=== PATIENT | female | born 1950 | race American Indian/Alaskan Native ===

== ENCOUNTER 2016-12-14 14:45 | Outpatient (CLI) | payer MEDICARE, MEDICAID | END 2016-12-14 14:46 | disposition home or self-care (01) | DX: J44.9 Chronic obstructive pulmonary disease, unspecified (principal); J84.10 Pulmonary fibrosis, unspecified; I27.2 Other secondary pulmonary hypertension; R53.1 Weakness; Z51.5 Encounter for palliative care ==

== ENCOUNTER 2017-01-04 | Outpatient (CLI) | payer MEDICARE, MEDICAID | END 2017-01-04 12:46 | disposition home or self-care (01) ==

== ENCOUNTER 2017-02-08 13:15 | Outpatient (CLI) | payer MEDICARE, MEDICAID | END 2017-02-08 13:16 | disposition home or self-care (01) | DX: Z51.5 Encounter for palliative care (principal); J44.9 Chronic obstructive pulmonary disease, unspecified; J84.10 Pulmonary fibrosis, unspecified; I27.2 Other secondary pulmonary hypertension; K59.00 Constipation, unspecified; Z87.898 Personal history of other specified conditions; F41.9 Anxiety disorder, unspecified ==

== ENCOUNTER 2017-03-27 15:45 | Outpatient (CLI) | payer MEDICARE, MEDICAID | END 2017-03-27 15:46 | disposition home or self-care (01) | DX: R10.9 Unspecified abdominal pain (principal); K59.00 Constipation, unspecified; R06.00 Dyspnea, unspecified; F41.9 Anxiety disorder, unspecified; J44.9 Chronic obstructive pulmonary disease, unspecified; J84.10 Pulmonary fibrosis, unspecified; I27.2 Other secondary pulmonary hypertension; Z99.81 Dependence on supplemental oxygen; R09.81 Nasal congestion; J18.9 Pneumonia, unspecified organism; R00.0 Tachycardia, unspecified ==

== ENCOUNTER 2017-03-27 16:26 | Outpatient (CLI) | payer MEDICARE, MEDICAID | END 2017-03-27 16:27 | disposition critical access hospital (66) | LOC: EMS 16:26 | PROVIDERS: ATTEND Surgery | DX: R10.9 Unspecified abdominal pain (principal); R11.0 Nausea | CPT/HCPCS: A0425; A0427 ==

== ENCOUNTER 2017-03-27 16:45 | Inpatient (IN) | payer MEDICARE, MEDICAID ==
[2017-03-27] MEDS ORDERED: SODIUM CHLORIDE 0.9% 1,000 ML IV ONE (17:32)
[2017-03-27] MEDS ORDERED: HYDROmorphone 1 MG/ML SYRINGE IVP STA (17:33)
[2017-03-27] MEDS ORDERED: HYDROmorphone 1 MG/ML SYRINGE ONE (17:34)
[2017-03-27] MEDS ORDERED: ONDANSETRON 4 MG/2 ML VIAL ONE (17:38)
[2017-03-27] MEDS ORDERED: ONDANSETRON 4 MG/2 ML VIAL IVP STA (17:39)
[2017-03-27] MEDS ORDERED: IOPAMIDOL-300 100 ML VIAL IVP ONE (18:56)
[2017-03-27] MEDS ORDERED: PROMETHAZINE INJ 12.5 MG in SODIUM CHLORIDE 0.9% 50 ML IV STA (19:41)
[2017-03-27] MEDS ORDERED: SODIUM CHLORIDE 0.9% 50 ML IV ONE (19:47)
[2017-03-27] MEDS ORDERED: SODIUM CHLORIDE 0.9% MINIBAG 100 ML IV ONE (19:47)
[2017-03-27] MEDS ORDERED: PROMETHAZINE 25 MG/1 ML VIAL ONE (19:47)
[2017-03-27] MEDS: PIPERACILLIN/TAZOBACTAM 3.375 GM in SODIUM CHLORIDE 0.9% MINIBAG 100 ML IV STA ×2 (19:55→20:25)
[2017-03-27] MEDS ORDERED: PROCHLORPERAZINE 10 MG/2 ML VIAL IVP PRN (20:18)
[2017-03-27] MEDS ORDERED: PROMETHAZINE 25 MG/1 ML VIAL IM PRN (20:18)
[2017-03-27] MEDS ORDERED: oxyCODONE 5 MG TABLET PO PRN (20:18)
[2017-03-27] MEDS ORDERED: ACETAMINOPHEN 325 MG TABLET PO PRN (20:18)
[2017-03-27] MEDS: HYDROmorphone 1 MG/ML SYRINGE IVP PRN (22:16)
[2017-03-27] MEDS: ONDANSETRON 4 MG/2 ML VIAL IVP PRN (22:16)
[2017-03-27] MEDS: SODIUM CHLORIDE FLUSH 0.9% 10 ML SYRINGE IVP SCH (22:21)
[2017-03-27] MEDS: SODIUM CHLORIDE 0.9% 1,000 ML IV SCH (22:22)
[2017-03-28] MEDS: HYDROmorphone 1 MG/ML SYRINGE IVP PRN ×3 (01:24→19:08)
[2017-03-28] MEDS: PIPERACILLIN/TAZOBACTAM 3.375 GM in SODIUM CHLORIDE 0.9% MINIBAG 100 ML IV SCH ×4 (01:26→19:08)
[2017-03-28] MEDS: SODIUM CHLORIDE 0.9% 1,000 ML IV SCH ×2 (01:34→14:09)
[2017-03-28] MEDS: PANTOPRAZOLE 40 MG TABLET PO SCH (06:08)
[2017-03-28] MEDS: SODIUM CHLORIDE FLUSH 0.9% 10 ML SYRINGE IVP SCH ×3 (06:08→19:08)
[2017-03-28] MEDS: POLYETHYLENE GLYCOL 3350 17 GM PACKET PO SCH (08:50)
[2017-03-28] MEDS: ENOXAPARIN 40 MG/0.4 ML SYRINGE SUBQ SCH (08:50)
[2017-03-28] MEDS: ATORVASTATIN 10 MG TABLET PO SCH (08:50)
[2017-03-28] MEDS: predniSONE 20 MG TABLET PO SCH (08:50)
[2017-03-28] MEDS: ONDANSETRON 4 MG/2 ML VIAL IVP PRN (08:57)
[2017-03-28] MEDS: LOSARTAN 50 MG TABLET PO SCH (08:59)
[2017-03-28] MEDS ORDERED: LOSARTAN 50 MG TABLET PO SCH (09:00)
[2017-03-28] MEDS: BUDESONIDE 0.5 MG/2 ML NEB INH SCH (09:50)
[2017-03-28] MEDS: FORMOTEROL FUMARATE NEB 20 MCG/2 ML INH SCH (09:50)
[2017-03-28] MEDS: IPRATROPIUM/ALBUTEROL 3 ML NEB INH PRN ×3 (09:50→17:48)
[2017-03-28] MEDS ORDERED: PROPOFOL 200 MG/20 ML VIAL IVP ONE (20:45)
[2017-03-28] MEDS ORDERED: ONDANSETRON 4 MG/2 ML VIAL IVP ONE (20:45)
[2017-03-28] MEDS ORDERED: fentaNYL 100 MCG/2 ML VIAL IVP ONE (20:45)
[2017-03-28] MEDS ORDERED: GLYCOPYRROLATE 1 MG/5 ML VIAL IVP ONE (20:45)
[2017-03-28] MEDS ORDERED: NEOSTIGMINE 1 MG/1 ML 10 ML MDV IVP ONE (20:45)
[2017-03-28] MEDS ORDERED: LIDOCAINE-MPF 2% 5 ML VIAL IM ONE (20:45)
[2017-03-28] MEDS ORDERED: MIDAZOLAM 2 MG/2 ML VIAL IVP ONE (20:45)
[2017-03-28] MEDS ORDERED: ACETAMINOPHEN 1,000 MG/100 ML VIAL IV ONE (20:45)
[2017-03-28] MEDS ORDERED: ALBUTEROL 6.7 GM INHALER INH ONE (20:45)
[2017-03-28] MEDS ORDERED: DEXAMETHASONE 4 MG/ML VIAL IVP ONE (20:45)
[2017-03-28] MEDS ORDERED: SUCCINYLCHOLINE 200 MG/10 ML VIAL IVP ONE (20:45)
[2017-03-28] MEDS ORDERED: ROCURONIUM 50 MG/5 ML VIAL IVP ONE (20:45)
[2017-03-28] MEDS ORDERED: BUPIVACAINE 0.5% PF 30 ML VIAL SUBQ ONE ×2 (20:52)
[2017-03-28] MEDS ORDERED: LACTATED RINGERS 1,000 ML IV ONE ×2 (20:59→22:37)
[2017-03-28] MEDS ORDERED: IPRATROPIUM/ALBUTEROL 3 ML NEB INH ONE (22:13)
[2017-03-28] MEDS ORDERED: PHENOL THROAT SPRAY 177 ML MM PRN (22:31)
[2017-03-28] MEDS ORDERED: SODIUM CHLORIDE FLUSH 0.9% 10 ML SYRINGE IVP PRN (22:31)
[2017-03-28] MEDS: HYDROmorphone 1 MG/ML SYRINGE ONE ×2 (22:33→22:45)
[2017-03-29] MEDS: BUDESONIDE 0.5 MG/2 ML NEB INH SCH ×3 (00:33→19:42)
[2017-03-29] MEDS: FORMOTEROL FUMARATE NEB 20 MCG/2 ML INH SCH ×3 (00:33→19:42)
[2017-03-29] MEDS: PIPERACILLIN/TAZOBACTAM 3.375 GM in SODIUM CHLORIDE 0.9% MINIBAG 100 ML IV SCH ×4 (02:08→20:15)
[2017-03-29] MEDS: oxyCODONE 5 MG TABLET PO PRN ×2 (06:50→21:30)
[2017-03-29] MEDS: SODIUM CHLORIDE FLUSH 0.9% 10 ML SYRINGE IVP SCH ×6 (06:52→21:39)
[2017-03-29] MEDS: PANTOPRAZOLE 40 MG TABLET PO SCH (06:52)
[2017-03-29] MEDS: ATORVASTATIN 10 MG TABLET PO SCH (09:17)
[2017-03-29] MEDS: SODIUM CHLORIDE 0.9% 1,000 ML IV SCH (09:17)
[2017-03-29] MEDS: DOCUSATE SODIUM 250 MG CAPSULE PO SCH (09:17)
[2017-03-29] MEDS: predniSONE 20 MG TABLET PO SCH (09:18)
[2017-03-29] MEDS: LOSARTAN 50 MG TABLET PO SCH (09:18)
[2017-03-29] MEDS: SENNA 8.6 MG TABLET PO SCH (09:18)
[2017-03-29] MEDS: HYDROmorphone 1 MG/ML SYRINGE IVP PRN ×3 (09:27→23:40)
[2017-03-29] MEDS: ENOXAPARIN 40 MG/0.4 ML SYRINGE SUBQ SCH (09:27)
[2017-03-29] MEDS: POLYETHYLENE GLYCOL 3350 17 GM PACKET PO SCH (09:28)
[2017-03-29] MEDS: IPRATROPIUM/ALBUTEROL 3 ML NEB INH PRN ×2 (12:45→17:17)
[2017-03-29] MEDS: ONDANSETRON 4 MG/2 ML VIAL IVP PRN (21:30)
[2017-03-29] MEDS: SODIUM CHLORIDE FLUSH 0.9% 10 ML SYRINGE IVP PRN ×2 (23:40→23:48)
[2017-03-30] MEDS: SODIUM CHLORIDE FLUSH 0.9% 10 ML SYRINGE IVP PRN (02:17)
[2017-03-30] MEDS: PIPERACILLIN/TAZOBACTAM 3.375 GM in SODIUM CHLORIDE 0.9% MINIBAG 100 ML IV SCH ×2 (02:17→08:52)
[2017-03-30] MEDS: PANTOPRAZOLE 40 MG TABLET PO SCH (06:17)
[2017-03-30] MEDS: SODIUM CHLORIDE FLUSH 0.9% 10 ML SYRINGE IVP SCH ×2 (06:17)
[2017-03-30] MEDS: BUDESONIDE 0.5 MG/2 ML NEB INH SCH (08:32)
[2017-03-30] MEDS: IPRATROPIUM/ALBUTEROL 3 ML NEB INH PRN (08:32)
[2017-03-30] MEDS: FORMOTEROL FUMARATE NEB 20 MCG/2 ML INH SCH (08:32)
[2017-03-30] MEDS: predniSONE 20 MG TABLET PO SCH (08:51)
[2017-03-30] MEDS: ATORVASTATIN 10 MG TABLET PO SCH (09:53)
[2017-03-30] MEDS: DOCUSATE SODIUM 250 MG CAPSULE PO SCH ×2 (09:54→09:59)
[2017-03-30] MEDS: oxyCODONE 5 MG TABLET PO PRN (09:57)
[2017-03-30] MEDS: SENNA 8.6 MG TABLET PO SCH (10:01)
[2017-03-30] MEDS: LOSARTAN 50 MG TABLET PO SCH (10:02)
[2017-03-30] MEDS: POLYETHYLENE GLYCOL 3350 17 GM PACKET PO SCH (10:02)
[2017-03-30] MEDS: ENOXAPARIN 40 MG/0.4 ML SYRINGE SUBQ SCH (10:06)
== END 2017-03-30 11:10 | disposition home or self-care (01) | DRG 418 ==
PROC: 0HB7XZZ Excision of Abdomen Skin, External Approach (ICD-10-PCS; 2017-03-28)
PROC: 0FT44ZZ Resection of Gallbladder, Percutaneous Endoscopic Approach (ICD-10-PCS; principal; 2017-03-28 16:00)
DX: K81.9 Cholecystitis, unspecified (principal); J44.9 Chronic obstructive pulmonary disease, unspecified; K80.10 Calculus of gallbladder with chronic cholecystitis without obstruction; J96.10 Chronic respiratory failure, unspecified whether with hypoxia or hypercapnia; E87.1 Hypo-osmolality and hyponatremia; L82.1 Other seborrheic keratosis; I10 Essential (primary) hypertension; F41.9 Anxiety disorder, unspecified; J84.10 Pulmonary fibrosis, unspecified; I27.2 Other secondary pulmonary hypertension; I15.9 Secondary hypertension, unspecified; Z99.81 Dependence on supplemental oxygen; Z79.52 Long term (current) use of systemic steroids; Z87.891 Personal history of nicotine dependence

== ENCOUNTER 2017-04-06 12:30 | Outpatient (CLI) | payer MEDICARE, MEDICAID ==
--- NOTE | 2017-04-07 06:38 | CONSULTATION NOTE ---
DATE OF CONSULTATION: 04/06/2017 00:00:00 REQUESTING PROVIDER: DOMINGO Reyes. TIME OF VISIT 12:30 to 13:15. TOPIC: Followup palliative care consult. Thank you, Kirti Phillips, for asking the palliative care consultation service to be involved in the care of your patient. I am asked to provide support for pain and symptom management, as well as goals of care. The patient is seen in her home setting secondary to considerable and taxing effort for her to leave the home related to her advanced COPD. BRIEF HISTORY OF PRESENT ILLNESS: The patient has been seen termite control representative for support regarding her advanced COPD. When I visited her last 03/27/2017, the patient had also had 24 hours of acute abdominal pain and was sent to the ED. She was admitted to the hospital from 03/27 to 03/30 with admission diagnosis of cholecystitis. She did have a laparoscopic cholecystectomy and actually tolerated it despite her chronic respiratory failure fairly well. She tends to be somewhat of an introvert, it is very difficult for her to get out. She has not made any followup appointments. She is supposed to see Dr. Diggs and Kirti LANE in followup after her surgery. In the context of this, I am doing a home evaluation. The patient has had some abdominal pain. She does have 3 small incisions from her laparoscopy. The Steri-Strips are still intact. No signs or symptoms of infection. The pain has been improving. She has used only occasional oxycodone, but has been uncomfortable enough needing to sleep in a recliner. She reports her respiratory status is not much different than baseline, but again, she has needed to sleep upright, so she does sleep in her hospital bed with her head of the bed up. What is quite remarkable from her baseline exam is that she has got lower extremity edema, probably up to about mid thigh. She also has some facial and periorbital edema and some edema in her hands. I did not hear any crackles, but her breath sounds are very, very diminished even at baseline. She reports her baseline weight is 195 and she is weighing in at 199, and she reports she has had some mild improvement over the last couple of days. She has been taking her p.r.n. Lasix which is 20 mg tabs along with her potassium daily with not much improvement. She denies any history that she has CHF, but she does have pulmonary hypertension and pulmonary fibrosis, as well as her advancing COPD. She reports she has had similar episodes with other hospital stays. Pain: Most of her discomfort is in her feet and her calves from the tightness and swelling. She does have some residual abdominal pain from the surgery though this is improving daily and she has some intermittent osteoarthritic pain. She is currently also using the morphine 5 mg about twice a day for breathlessness. She has since hospitalization had decreased activity tolerance, has only been able to ambulate back and forth to the bathroom and to microwave meals. She even at baseline is quite sedentary and is limited by her dyspnea. Today, she does not feel like she could get out. I was hoping to send her out for a chest x-ray, but we will go ahead and treat at this point in time. She reports her appetite has been fair. She is somewhat anxious and denies depression. ALLERGIES: NO KNOWN DRUG ALLERGIES. MEDICATIONS: 1. Albuterol sulfate 1-2 puffs q.4h. p.r.n. 2. Atorvastatin 20 mg daily. 3. Advair 250/50 mcg Diskus 1 puff daily. 4. Tiotropium bromide 18 mcg inhaler daily. 5. Vitamin D3 at 3,000 units daily. 6. Tramadol 50 mg. up to 4 times a day p.r.n. osteoarthritic pain and not currently taking. 7. Albuterol nebulizers 0.83% and 3 mL q.4h. p.r.n. She has been using this about 4 times a day. 8. Iron tablet 2-3 times a week. 9. Multivitamin daily. 10. Calcium, magnesium, zinc 1 tab t.i.d.. 11. Valsartan 80 mg daily. 12. Lasix 20 mg daily. This is ordered p.r.n.. 13. Potassium 10 mEq daily. Ordered p.r.n. with Lasix. 14. Oxycodone 5 mg q.4h. p.r.n. 15. Morphine sulfate 20 mg/mL 0.25 mL q.3h. p.r.n. shortness of breath. CODE STATUS: THE PATIENT IS A FULL CODE. BRIEF SOCIAL HISTORY: The patient is currently being supported by a very caring LAURA caregiver, Cady. She is a private IP. She has been helping her with meals. She does have LAURA 5 days a week, but otherwise has very little support outside of that. [place] not been able help her through this recovery. She does have [facility] in place. PERFORMANCE STATUS: The patient does need assistance with bathing. She has just been doing Spit bath, she does not think she can tolerate a shower at this point in time. She is ambulating only very short distances secondary to her dyspnea and deconditioning. I would put her actually at a palliative care performance status today at 40%. REVIEW OF SYSTEMS: ENT: She is complaining of nasal congestion and sinus pressure from allergies. Denies difficulty with swallowing. CARDIOVASCULAR: Denies chest pain. Does have exertional dyspnea, orthopnea. She is unable to sleep flat. She has been sleeping in a recliner since discharge. She does have a hospital bed with the head of the bed up. She is hoping to get into that tonight. RESPIRATORY: She does report a baseline tightness, does relieve with an inhaler. She does have intermittent productive cough of dark yellow sputum. She is clearing her secretions. She is using her nebulizer about 4 times a day and an inhaler with any kind of ambulation. She is using the morphine twice a day, as well, which has assisted with severe dyspnea and allowing her to get back and forth to the bathroom and tolerate some increased activity. GASTROINTESTINAL: She has had some intermittent constipation with her increased opioid use. GENITOURINARY: Denies any pain or burning with urination. MUSCULOSKELETAL: Feeling somewhat weak, increased difficulty walking with swollen feet. INTEGUMENTARY: Does have some scattered hematomas from her hospitalization. She reports she is a "difficult stick." NEUROLOGIC: Does report generalized weakness. Denies dizziness, no numbness or tingling. PSYCHIATRIC: She is baseline quite anxious. Denies depression. ENDOCRINE: No hypothyroidism or diabetes. HEMATOLOGIC/IMMUNOLOGIC: Was treated for a respiratory infection prior to her hospitalization. PHYSICAL EXAMINATION: GENERAL: She does have fairly pronounced periorbital edema and some swelling in her face and does appear quite fatigued. ENT: Mucous membranes are moist. NECK: Trachea midline. No JVD. RESPIRATORY: Severely diminished breath sounds throughout. No adventitious sounds, though they are quite quiet, particularly diminished in the bases. CARDIOVASCULAR: Her pulse is 96, blood pressure 132/68, temperature 98, O2 saturations on 4 liters 96%. ABDOMEN: Slightly tender to palpation over her surgical area, but bowel tones are positive. SKIN: Steri-Strips intact. No signs and symptoms of infection. EXTREMITIES: She does have increased tremulousness and as noted above increased lower extremity edema. PALLIATIVE CARE DISCUSSION/WHO IS PRESENT: Myself and the patient, Cady, her caregiver, joined us later. We did not venture into her advanced care planning. She though is aware that we need to revisit this particularly given her most recent hospitalization, she is certainly at risk for complications still yet with her respiratory status and now fluid overload. She has just a borderline safe plan as far as getting her care needs met, but feels like she is doing okay currently. IMPRESSION: This is a 66-year-old woman with severe end-stage chronic obstructive pulmonary disease, pulmonary fibrosis with recent hospitalization for cholecystitis status post laparoscopic cholecystectomy. She does appear to have symptoms of fluid overload. Unclear if this is outright heart failure. Certainly she is at high risk. She does appear to be a little worse than baseline, though that is not her perception. RECOMMENDATIONS/COUNSELING DONE: 1. Fluid overload. The patient has currently been taking 20 mg of furosemide. I did ask her to increase it to 20 mg b.i.d. for a week and to weigh herself daily. She is to call 911 if she has increased shortness of breath or distress from her baseline or any further concerns. I did make arrangements for her to have labs in a week. I also reinforced her need to followup with both her surgeon and her primary care. She did not feel like she could get out for a chest x-ray today, but I did voice my concerns and hoping that she will improve with the increased diuresis. 2. Constipation, most likely secondary to opioid use. The patient has been using the MiraLax about every 3 days. I did encourage her to take it daily and if she becomes too loose to decrease it to every other day. Given her difficulties with breathing and poor energy, it is important for her to have a soft regular bowel movement on a regular basis for energy conservation. 3. Dyspnea. The patient is managing with the tools at her disposal including using morphine, her inhalers and albuterol nebulizer. Currently, her saturations are 96%. She does feel like she is coming around to baseline. On her discharge list, they did have her on prednisone 40 mg. She was not on prednisone prior to admit. I checked with [facility], they had not called the prednisone in and she was not aware of why, it looked like it came from a list of home medications and she does not have that in the home and has not been on it for quite a while. We did discuss at this point after greater than a week out , weighing benefits and burdens. She really dislikes the prednisone as far as weight gain and coming off of it. She is on maximized COPD treatment as far as her inhalers and so did not pursue further. FACE TO FACE: Patient needs portable concentrator to allow patient to access to leave her home for medical appointments. She is to dysnpneic and compromised to be able to manage with the tanks, it causes increased distress and burden. She also is at 4 liters which does not allow her time for more extended outings without maximum caregiver support. Without oxygen her sats were 87% just at rest. 4. Advanced care planning. At this time this will opportunity to revisit this given her most recent trip to hospitalization and is unclear if she followed through on conversation with her children as she did see them through this acute process. Thank you, Kirti, for asking the palliative care consult service to provide her support. She is actually best while seen in her home setting, though she knows to follow up with you, but has not made an appointment yet, and she currently remains very fragile and frail and certainly is still at risk for sequela for her postop complications, particularly related to her respiratory status and we reviewed extensively reasons to contact 911. TIME SPENT:45 minutes with greater than 50% of this done in counseling and coordination of care, follow up post surgical, adjusting medications, review of signs and symptoms to access emergent care. JOB #: [id number] EXT JOB #:[id number] AMOL
== END 2017-04-06 12:31 | disposition home or self-care (01) ==
LOC: PC 12:30
PROVIDERS: ATTEND Nurse Practitioner Adult Health
DX: Z51.5 Encounter for palliative care (principal); E87.70 Fluid overload, unspecified; K59.00 Constipation, unspecified; R06.00 Dyspnea, unspecified; Z79.891 Long term (current) use of opiate analgesic; Z99.81 Dependence on supplemental oxygen; Z79.51 Long term (current) use of inhaled steroids; R10.9 Unspecified abdominal pain; I27.2 Other secondary pulmonary hypertension; J84.10 Pulmonary fibrosis, unspecified; F41.9 Anxiety disorder, unspecified; R09.81 Nasal congestion; R05 Cough; R53.1 Weakness; R60.0 Localized edema
CPT/HCPCS: 99349

== ENCOUNTER 2017-04-26 15:15 | Outpatient (CLI) | payer MEDICARE, MEDICAID ==
[2017-04-26 19:08] LABS: CALCIUM 9.1 mg/dL (8.5-10.3); CREATININE 0.6 mg/dL (0.4-1.0); POTASSIUM 4.1 mmol/L (3.5-5.0)
== END 2017-04-26 15:16 | disposition home or self-care (01) ==
LOC: LAB.N 15:15
PROVIDERS: ATTEND Nurse Practitioner Adult Health
DX: Z79.899 Other long term (current) drug therapy (principal)
CPT/HCPCS: 36415; 80048

== ENCOUNTER 2017-05-09 16:15 | Outpatient (CLI) | payer MEDICARE, MEDICAID ==
--- NOTE | 2017-05-10 11:20 | CONSULTATION NOTE ---
DATE OF CONSULTATION: 05/09/2017 00:00:00 REQUESTING PROVIDER: DOMINGO Reyes. TIME OF VISIT: 15:45 to 16:30. TOPIC: Followup palliative care consult. Thank you Kirti Phillips for asking the palliative care consult service to be involved in the car e of your patient. I am asked to provide support for pain and symptom management, as well as goals of care. The patient is seen in her home setting secondary to considerable and taxing effort for her to leave the home related to her advanced COPD. BRIEF HISTORY OF PRESENT ILLNESS UPDATE: The patient is seen regarding support for her advanced COPD. She recently had a laparoscopic cholecystectomy done on 03/28/2017. She continues to improve, though she is not back to her baseline. I do find her with her baseline dyspnea with respiratory effort wit h any kind of conversation or visit. Her respiratory rate is about 24-28 at rest, with any conversati on up to 32 with use of accessory muscles. Her breath sounds are diminished throughout, but no crackl es, wheezing, or rhonchi. She does have, per her report, a productive cough of yellow to green sputum . This has been her baseline for the last several weeks. She has not had any fever or chills. Her abd ominal pain is improving, her incisions are well healed. She is having regular bowel movements, no cr amping, nausea or residual. Today, she presents with recurrent lower extremity edema. She has restart ed her Lasix at 20 mg with 10 mEq of potassium for about a week now. Her weight, though remains down about 191, but they are quite tight and uncomfortable for her and pitting. Her new symptom is on her right great toe. She has an area of about 3 cm of erythema, quite tender to palpation. It does appear like there is some break in the skin. She has very thick fungal toes and presents with cellulitis. S he reports this has been painful and present for about 24-36 hours. She is unclear if she had an init ial trauma or injury. She is quite sedentary and only ambulates short distances within a very small a partment. SYMPTOM BURDEN: Her pain remains mostly osteoarthritic in nature. Her acute pain is resolved. She has continued with some fatigue and no further nausea. Her appetite has been good. She does appear somew hat anxious today. No changes from her medication list on 04/06/2017. CODE STATUS: REMAINS A FULL CODE. SOCIAL HISTORY UPDATE: She is supported by LAURA. She does have LAURA support from Monday through Mon. She remains with very little social support. PERFORMANCE STATUS: The patient has not had activity tolerance or felt well enough to bathe. At this point in time she is doing sponge baths. She is sleeping back in her bed. She is ambulating only abou t 15-20 feet within her apartment. She has not been out and did not followup with any physician appoi ntments. Unclear if this is related to activity or just the patient's spasticity regarding interactio ns with the medical system. She does have an appointment next Monday with a talent acquisition partner at [facility] and please see palliative care discussion. REVIEW OF SYSTEMS: ENT: She continues to have nasal congestion and runny nose from allergies. CARDIOVASCULAR: Denies chest pain. Does have exertional dyspnea, orthopnea. [facility] with her head of the bed up. RESPIRATORY: As noted above. She continues to use her nebulizer and inhaler, occasionally uses morphi ne to allow her to tolerate activity. GASTROINTESTINAL: Denies constipation. GENITOURINARY: Denies new symptoms. MUSCULOSKELETAL: Remains somewhat deconditioned. INTEGUMENTARY: New cellulitis of her right foot. NEUROLOGIC: No numbness, tingling. PSYCHIATRIC: She appears at her baseline quite anxious. ENDOCRINE: No hyperthyroidism or diabetes. HEMATOLOGIC/IMMUNOLOGIC: Was treated for respiratory infection prior to hospitalization and now prese nts with cellulitis. PHYSICAL EXAMINATION: GENERAL: She does have some increased facial swelling with some periorbital edema. Does appear fatigu ed. ENT: Her mucous membranes are moist. Trachea midline. No JVD. RESPIRATORY: As noted above. CARDIOVASCULAR: Her temperature is 97.8, pulse is 91, blood pressure elevated today at 172/70, O2 sat urations on 3 liters 98%. ABDOMEN: Bowel tones normal, no tenderness. Her incisions well healed from her laparoscopy. SKIN: As noted above. EXTREMITIES: Have some increased tremulousness of her upper extremities and noted to have increased l ower extremity edema, as noted above. PALLIATIVE CARE DISCUSSION, WHO IS PRESENT: Myself, the patient, and nurse practitioner, Ellie Irizarry. The patient is following up with her talent acquisition partner. She did not reach out, they called her. She has been talking about weighing benefits and burdens of moving forward with pursuing whether she is a can didate for lung transplant or not. She will need a referral and followup from her talent acquisition partner. When asked if she knew what questions she was going to ask or what her concerns where she really could no t define those. We did review those from previously whether she would be a candidate again for lung t ransplant, what her prognosis was at this point in time and to address concerns regarding this. I did encourage her to write these down as she is quiet in the context of, I believe, most likely cultural and her health literacy, I am concerned she is not going to get the information that she is looking for. IMPRESSION: This is a 66-year-old woman with severe end-stage chronic obstructive pulmonary disease, pulmonary fibrosis, who is recovering from a hospitalization, though not back to her baseline either with functional status or respiratory status. She presents today with increased lower extremity edema and cellulitis of her right toe. RECOMMENDATIONS/COUNSELING DONE: 1. Lower extremity edema. The patient had gone back to her p.r.n. furosemide, had restarted 1 tablet daily. She dislikes the need to get up frequently to the bathroom, as this does cause her respiratory distress. I did request though given her current infection and swelling in her lower feet to increas e again her furosemide to 20 mg b.i.d. for 5 days, then go back to baseline to daily and then to add the potassium to twice a day and back to daily as well. I did write these instructions. She did verbjessy gonzalez understanding. 2. Cellulitis of her right toe. The patient was prescribed Keflex 500 mg 4 times a day for 1 week bhargav paredes with Florastor 250 mg b.i.d., instructed the patient to take this and be compliant. Reviewed side effects as far as diarrhea and needs to if she did not pick and shovel worker the probiotics, to add yogurt or some baseline probiotic to her regimen. She also was instructed on increased signs or symptoms of infectio n to contact her PCP or seek emergency help if she has increased pain, drainage, fever or chills. 3. Dyspnea. The patient is managing with the tools at her disposal including her morphine intermitten tly. I did write her a prescription for another bottle of 30 mL. She does find this effective, though uses it only sparingly about a couple times a day. She is following up with her talent acquisition partner. She h ad also run out of her Advair. Did followup with [facility] to see if we could facilitate getting th at delivered as well. TIME SPENT: 45 minutes with greater than 50% of this done in counseling regarding her upcoming pulmon ology appointment, reviewing her current symptomatology, new diagnosis of cellulitis and recurrent lo wer extremity edema. Anticipatory guidance was provided as well. JOB #: [id number] EXT JOB #:[id number]
== END 2017-05-09 16:16 | disposition home or self-care (01) ==
LOC: PC 16:15
PROVIDERS: ATTEND Nurse Practitioner Adult Health
DX: Z51.5 Encounter for palliative care (principal); R60.0 Localized edema; L03.031 Cellulitis of right toe; J44.9 Chronic obstructive pulmonary disease, unspecified; J84.10 Pulmonary fibrosis, unspecified; I27.2 Other secondary pulmonary hypertension; Z90.49 Acquired absence of other specified parts of digestive tract; F41.9 Anxiety disorder, unspecified
CPT/HCPCS: 99349

== ENCOUNTER 2017-06-06 16:52 | Outpatient (CLI) | payer MEDICARE, MEDICAID ==
--- NOTE | 2017-06-06 17:07 | PROVIDER PROGRESS NOTE ---
Palliative Care Follow Up - Referral Referring Provider: DOMINGO Martinez Time of Visit: 14:30-15:15 Referral setting: Home (The patient is seen in her home setting secondary to considerable and taxing effort for her to leave the home related to her end- stage COPD.) Referral Reason: End Stage COPD - Information Sources Records Reviewed: Old records reviewed History obtained from: Patient, Caregiver (LAURA Crocker caregiver) Exam limitations: Clinical condition (SOB makes it difficult for her to speak) - History of Present Illness Update Brief HPI Update: 66 year old female with severe end-stage COPD and pulmonary fibrosis, recently with cholecystitis s/p laparoscopic cholecystectomy (March 2017). She is being seen for long-term palliative care support relating to her advanced COPD. Today she reports nausea and vomiting which started last night. She ate mac and cheese yesterday afternoon and a cheese and egg sandwich in the evening, and several hours after the evening meal she vomited. 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 She has a fan going and is sitting in the coolest part, which is under a fan vent. She has not attempted to eat anything or take her medications today, saying she feels nauseous at the thought of food and was reluctant to drink as she had thrown up some 7 Up earlier. She is worried that she will become dehydrated if she doesn't start drinking water. She denies cramping and abdominal pain and her abdomen is not tender to palpation. During the course of our visit, I educated her on sipping small amounts of water or 7 Up, making sure they were well mixed with her saliva before swallowing. I also recommended sucking on ice, but she does not currently have any due to not enough room in her freezer. She was able to hold down several swallows of 7 Up while I was there, and by the end of the visit she reported feeling improvement in her nausea. Her stamina and energy levels have decreased since the cholecystectomy two months ago and she is not able to ambulate in the house without her walker -- she needs it to sit down and rest at regular intervals. Previously she could move around the apartment by supporting herself on furniture. She perceives her SOB as worse since the operation, although it has stabilized. This could be her new baseline. She says this is not unexpected as she had been told by doctors that her disease and symptoms would get progressively worse. She has increased her usage of Albuterol inhaler, using it daily. She reports using morphine for breathlessness about once a day. She did not go to the animator last month ; she now has an appointment on 06/12/17, and she asked me to write down a note reminding her to tell him about her increased used of rescue inhaler. She admits having recent anxiety over getting the paperwork together to get recertified for her home with the [employer]. With the help of Lizzette, her LAURA caregiver, they submitted the paperwork on time earlier this week. She said she is not worried about the recertification process since she has turned all the paperwork in, and her situation has not changed from the previous certification period so she's not worried about losing her home. She has not taken any of her medications for at least two days: yesterday she forgot, and today she was afraid of vomiting. Her BP is elevated: 185/95 on the R arm, 185/90 on L arm 10 minutes later. Her BP at the April visit was also elevated but less so, 172/70. Her ankles are swollen and she says she has not been taking her PRN Lasix. The cellulitis of R first toe has cleared up but she stubbed that toenail recently and it was bandaged. She denied pain or tenderness. She reports no pain and is not currently using her PRN pain medications (tramadol, oxycodone). Social History - Living Situation Living arrangement: At home Living Situation: With caregiver(s) (LAURA 5 days/week) Support System: Apart from her LAURA caregivers 5 days a week she does not have a strong support system. Her son and daughter are not closely involved in her care. Her son lives close by in [place]. Medications/Allergies - Medications Home Medications: Ambulatory Orders Medication Instructions Recorded Confirmed Albuterol Sulfate [Proair Hfa 1 - 2 puffs INH Q4H PRN 08/31/16 06/06/17 Inhaler] Atorvastatin Calcium 20 mg PO QPM 08/31/16 06/06/17 Fluticasone/Salmeterol [Advair 1 puffs INH BID 08/31/16 06/06/17 250-50 Diskus] Valsartan [Diovan] 80 mg PO DAILY #30 tablet 08/31/16 06/06/17 Morphine Sulfate [Morphine Sulf 5 mg PO Q3H PRN 03/29/17 06/06/17 Oral (Roxanol)] oxyCODONE [Roxicodone] 5 mg PO Q4HR PRN #30 tablet 03/30/17 06/06/17 Furosemide [Lasix] 20 mg PO DAILY PRN MDD This is 06/06/17 06/06/17 ordered PRN Multivitamin 1 tab PO DAILY 06/06/17 06/06/17 Potassium 10 meq PO PRN MDD Take with Lasix 06/06/17 for edema Vit D3 06/06/17 traMADol [Ultram] 50 mg PO QID PRN MDD Up to 4x day. 06/06/17 06/06/17 Not using it. - Allergies Allergies/Adverse Reactions: Allergies Allergy/AdvReac Type Severity Reaction Status Date / Time No Known Drug Allergies Allergy Verified 03/27/17 16:53 Review of Systems - Constitutional Constitutional: reports: Fatigue, Poor appetite, Weight loss (4 lbs since last month). denies: Fever, Chills, Malaise - Cardiovascular Cariovascular: reports: Edema (chronic lower extremity), Exertional dyspnea. denies: Chest pain, Lightheadedness, Syncope - Respiratory Respiratory: reports: Sputum production (allergies), SOB at rest, SOB with exertion - Gastrointestinal Gastrointestinal: reports: Nausea, Vomiting. denies: Abdominal pain, Constipation, Diarrhea, Change in bowel habits - Genitourinary Genitourinary: denies: Dysuria, Incontinence - Integumentary Integumentary: reports: Pigment changes (darkened skin on lower extremities, concerned it might be due to iron supplements) - Psychiatric Psychiatric: denies: Anxiety - All Other Systems All Other Systems: reports: Reviewed and negative Physical Examination - Vital Signs Temperature: 96.4 C Pulse Rate: 80 O2 Saturation: 96 Blood Pressure: 185/90 - Physical Exam General Appearance: positive: No acute distress Eyes Bilateral: positive: Normal inspection, No lid inflammation, Conjunctivae nml ENT: positive: No signs of dehydration Neck: positive: Trachea midline Respiratory: positive: Wheezes (mild, on expiration), Other (greatly diminished breath sounds in upper lobes, less diminished in lower lobes) Cardiovascular: positive: Regular rate & rhythm Palliative Care - POLST Patient has POLST: No Pain: Pain unchanged Drowsiness: Mild (1-3) Nausea: Moderate (4-6) Anxiety: Mild (1-3) Dyspnea: Moderate (4-6) (no change) Anorexia: Mild (1-3) (since N/V started, last night), Weight loss (4 lbs since last month's visit) Insomnia: Sleeps well (Except for last night due to N/V) Constipation: No Feelings of wellbeing/Perceived Quality of Life: Worsening (Perceives her disease and SOB as worsening) Performance Status: Her functionality has decreased since the cholecystectomy two months ago. She is no longer able to ambulate in the house without her walker because she uses the walker to sit down and rest frequently. SOB is not as poor as it was post-op , but it has not returned to pre-op levels and may well be at its new baseline. She uses Albuterol daily and morphine about once a day. She has been able to start bathing again with help of LAURA caregiver. She has no complaints of pain and has not been using oxycodone or tramadol. Her Palliative Care Performance Scale is approximately 50%. - Palliative Care Discussion: WHO IS PRESENT: Myself, the patient, and initially, LAURA Crocker caregiver, who was just finishing her shift. The patient is introverted and that, along with her breathlessness, makes dialog challenging. It appears very difficult for her to express herself and to get the words out. She doesn't have a DPOA and hasn't spoken with her children about any of this. She says she understands and expects her COPD to get worse as time goes on, but she has not yet thought about her goals of care. She is scheduled to see the animator next week but she does not think she will be able to get a lung transplant. She said she does not know what questions she will be asking him, so I wrote out two subjects to speak about: lung transplant, and that she has increased her albuterol usage. I also asked her to think about who she would trust to have as a DPOA. She does not have a signed POLST but is familiar with the form and has a copy around somewhere but she doesn't know where, so I left her a new copy. We agreed she would think about it and continue the discussion at our next visit. I expressed my concern over her high blood pressure today. It is likely related to her nausea and also skipping medications for at least two days. Since her nausea seemed to be improving, we discussed that she should sip liquids slowly and frequently, suck on ice, and slowly reintroduce bland food. She verbalized understanding. Impression and Recommendations - Palliative Care Impression: This is a 66-year-old woman with severe end-stage COPD and pulmonary fibrosis whose functionality and respiratory status has declined since a recent cholecystectomy on 03/28/17. She presents today with acute nausea and vomiting and increased BP possibly related to medication non-compliance. Recommendations/Counseling Done: 1. Nausea/Vomiting: Acute. Start ondansetron 8mg tab PO every 8 hours as needed. #10. Instructed her to frequently and slowly sip water, 7 Up, or other liquids, allowing saliva to thoroughly "coat" anything swallowed or chewed. Slowly reintroduce bland foods like crackers, white rice, pudding, cottage cheese in very small portions throughout the day. Instructed her on what to call 911 for. I will follow up by phone tomorrow. 2. SOB: Renewed her script for morphine sulfate solution, 20mg/ml, 0.25ml = 5mg every 3 hours as needed for breathlessness, #30ml. She has a animator appointment on 06/12/17, but she has rescheduled and cancelled appointments in the past. I will schedule a follow up visit to see her next week after her appointment. Issues are her increased SOB and albuterol usage and obtaining information on lung transplant and prognosis. 3. Increased BP: Likely due to non-adherence of medication and increased SOB. Encourage and educate her about drinking and eating again and not vomiting, so she can start taking her BP medications. 4. Lower extremity edema: Counselled elevation her legs throughout the day and encouraged her to start taking her Lasix 20mg daily. It is ordered on a PRN basis. Time Spent: 45 minutes with greater than 50% of this done in reviewing current symptomology and acute nausea/vomiting, restarting liquids and solids, and counseling regarding her upcoming pulmonology appointment. Discussed POLST, surrogate decision makers, and advanced planning.
== END 2017-06-06 16:53 | disposition home or self-care (01) ==
LOC: PC 16:52
PROVIDERS: ATTEND Nurse Practitioner
DX: Z51.5 Encounter for palliative care (principal); R11.2 Nausea with vomiting, unspecified; R03.0 Elevated blood-pressure reading, without diagnosis of hypertension; R60.0 Localized edema; J44.9 Chronic obstructive pulmonary disease, unspecified; J84.10 Pulmonary fibrosis, unspecified; Z90.49 Acquired absence of other specified parts of digestive tract; Z79.891 Long term (current) use of opiate analgesic; Z91.14 Patient's other noncompliance with medication regimen
CPT/HCPCS: 99349

== ENCOUNTER 2017-06-15 15:40 | Outpatient (CLI) | payer MEDICARE, MEDICAID ==
--- NOTE | 2017-06-15 17:16 | PROVIDER PROGRESS NOTE ---
Palliative Care Follow Up - Referral Referring Provider: DOMINGO Reyes Time of Visit: 15:40 Referral setting: Home (Seen in home setting due to taxing and considerable effort required to leave the home secondary to advanced COPD and inability to ambulate more than a few feet without resting.) - Information Sources History obtained from: Patient Exam limitations: No limitations, Clinical condition (breathlessness) - History of Present Illness Update Brief HPI Update: 66-year-old female with severe end-stage COPD and pulmonary fibrosis, with cholecystitis s/p laparoscopic cholecystectomy in March 2017. She is being seen for long-term palliative care support relating to her advanced COPD. Today she appears much better and reports the nausea and vomiting from last week cleared after 1-2 days. She is not sure whether it was a 24-hour bug or food poisoning. She had her follow up consultation with chemists/internal medicine Dr Gwyn Riggs, , in [place] this week and he will set up tests/ diagnostics to determine if she is a candidate for lung reduction or transplant. She reports a decrease in breathlessness since he started her on fluticasone for her sinuses, and overall feels more positive, with more energy and less fatigue. Her R first toe likely has an ingrown toenail and she will follow up with her PCP (DOMINGO Phillips) for treatment. Her BP has improved since my visit last week , but remains elevated (178 systolic). She will also ask about her elevated BP. She has thought about having a DPOA and thinks it will probably be her sister but has not yet spoken to her regarding this. I will continue to follow up on this issue. Overall she appears more at ease this visit. Part of that is likely the hope that she might be a candidate for a lung transplant or reduction. Also, she recently gave her car to her son and feels good about being able to help him out like this. He lives in [place] and commutes to [place]. Social History - Living Situation Living arrangement: At home Living Situation: Alone (LAURA caregivers) Medications/Allergies - Medications Home Medications: Ambulatory Orders Medication Instructions Recorded Confirmed Albuterol Sulfate [Proair Hfa 1 - 2 puffs INH Q4H PRN 08/31/16 06/06/17 Inhaler] Atorvastatin Calcium 20 mg PO QPM 08/31/16 06/06/17 Fluticasone/Salmeterol [Advair 1 puffs INH BID 08/31/16 06/06/17 250-50 Diskus] Valsartan [Diovan] 80 mg PO DAILY #30 tablet 08/31/16 06/06/17 Morphine Sulfate [Morphine Sulf 5 mg PO Q3H PRN 03/29/17 06/06/17 Oral (Roxanol)] oxyCODONE [Roxicodone] 5 mg PO Q4HR PRN #30 tablet 03/30/17 06/06/17 Furosemide [Lasix] 20 mg PO DAILY PRN MDD This is 06/06/17 06/06/17 ordered PRN Multivitamin 1 tab PO DAILY 06/06/17 06/06/17 Potassium 10 meq PO PRN MDD Take with Lasix 06/06/17 for edema Vit D3 06/06/17 traMADol [Ultram] 50 mg PO QID PRN MDD Up to 4x day. 06/06/17 06/06/17 Not using it. Ondansetron [Ondansetron Odt] 8 mg PO Q8HR PRN 06/08/17 06/08/17 - Allergies Allergies/Adverse Reactions: Allergies Allergy/AdvReac Type Severity Reaction Status Date / Time No Known Drug Allergies Allergy Verified 03/27/17 16:53 Review of Systems - Constitutional Constitutional: reports: Weight loss (from 190 lbs to 186 lbs) - Ears, Nose & Throat Ears, Nose & Throat: reports: Nasal congestion, Postnasal drainage (improved since starting fluticasone) - Respiratory Respiratory: reports: SOB at rest, SOB with exertion - Integumentary Integumentary: reports: Nail changes (R big toe - ingrown nail) Physical Examination - Vital Signs Temperature: 98.1 C Pulse Rate: 95 O2 Saturation: 96 Blood Pressure: 178/78 - Physical Exam General Appearance: positive: No acute distress Eyes Bilateral: positive: EOMI, No lid inflammation, Conjunctivae nml, No scleral icterus ENT: positive: ENT inspection nml Neck: positive: Trachea midline Respiratory: negative: Breath sounds nml (Diminished. LLL less diminished than other lobes) Cardiovascular: positive: Regular rate & rhythm Abdomen: positive: Non-tender, No organomegaly, Nml bowel sounds Skin: positive: Other (crusting scab, thickened skin on lateral surface of skin next to nail) Extremities: positive: Pedal edema (+1) Neurologic/Psychiatric: positive: Oriented x3, Motor nml, Sensation nml. negative: Mood/affect nml (affect flat) Palliative Care - POLST Patient has POLST: No Pain: Pain unchanged Drowsiness: None Nausea: None Anxiety: Mild (1-3) Dyspnea: Moderate (4-6) (improved) Anorexia: None Insomnia: Sleeps well Constipation: No Feelings of wellbeing/Perceived Quality of Life: No change Performance Status: Previous level of function prior to this episode: Easily fatigued and breathless with any mobility; acute nausea and vomiting. Current level of functioning: N/V resolved; improved SOB and fatigue, resulting in improved mobility. Palliative Care Performance Status: 50% - Palliative Care Discussion: Who is present: Myself and the patient. Surrogate decision maker: None yet. She plans to speak with her sister. I left the DPOA form, and she also has the POLST form readily accessible. Perhaps we are getting closer to her actually choosing a DPOA. Patient/Family understanding of the illness: She understands her lung disease is quite serious and has appeared to be stoic about it in the past, stating that she isnt a candidate for lung transplant. After having met with Dr. Riggs this week, she appears to be encouraged and more hopeful that she may be a candidate for lung transplant or reduction. Most important goals: Being able to give her car to her son when he needed one was important to her. Also passing the recertification for her housing has been another important immediate goal. In future visits I would like to further the conversation about her goals of care and aid her in reflecting about this. She exhibits some reluctance to talk about goals of care, some of which could be cultural. Her family is originally from a nation in [place]. Patient/family concerns: Her immediate worries are about a recent increase in rent of her subsidized apartment while her social security income has not had a concomitant raise. She is open to having COUNTY ASSESSOR input for any help with resources regarding this, and I will follow up with arranging that. Family Conference: I will suggest this in future visits. It may be helpful to be involved with some of the conversation with her sister about goals of care and DPOA. Impression and Recommendations - Palliative Care Impression: This is a 66-year-old woman with severe end-stage COPD and pulmonary fibrosis whose functionality and respiratory status have declined since a cholecystectomy in March 2017. Functionality has not increased to pre-op levels but breathlessness has improved since starting treatment for sinus symptoms. The next step is to complete tests to determine if she is a candidate for lung transplant or reduction. Recommendations/Counseling Done: 1. Advanced care planning: Patient to speak with sister about DPOA. At our next visit, continue the conversation around coaxing out her goals of care, and find out if a family conference with sister would be welcome. Coordinate with COUNTY ASSESSOR for help with resources and information around rent increase of subsidized housing. 2. COPD: Next step is testing/diagnostics to determine eligibility for lung transplant or reduction. Obtain office visit notes from Dr. Ravi office. 3. Dyspnea: Improved with steroid treatment for sinus congestion; morphine usage has decreased. 4. BP: Improved but remains elevated. Patient will discuss with PCP. 5. R ronald toenail: Patient to follow up with PCP. 6. Lower extremity edema: Continue Lasix as needed, elevate lower extremities throughout the day. Time Spent: 45 minutes with greater than 50% of this done in counseling and coordination of care regarding advanced care planning and symptom burden.
== END 2017-06-15 15:41 | disposition home or self-care (01) ==
LOC: PC 15:40
PROVIDERS: ATTEND Nurse Practitioner
DX: Z51.5 Encounter for palliative care (principal); J44.9 Chronic obstructive pulmonary disease, unspecified; R09.81 Nasal congestion; R03.0 Elevated blood-pressure reading, without diagnosis of hypertension; R60.0 Localized edema; J84.10 Pulmonary fibrosis, unspecified; Z79.891 Long term (current) use of opiate analgesic; Z90.49 Acquired absence of other specified parts of digestive tract
CPT/HCPCS: 99349

== ENCOUNTER 2017-07-19 13:30 | Outpatient (CLI) | payer MEDICARE, MEDICAID ==
--- NOTE | 2017-07-19 22:21 | PROVIDER PROGRESS NOTE ---
Palliative Care Follow Up - Referral Referring Provider: DOMINGO Reyes Referral setting: Home (Seen in home setting due to taxing and considerable effort required to leave the home secondary to severe end-stage COPD and inability to to ambulate without shortness of air and need to rest. She is on 24 -hour oxygen.) - Information Sources History obtained from: Patient Exam limitations: Clinical condition (difficulty speaking due to breathlessness) - History of Present Illness Update Brief HPI Update: 66-year-old female with severe end-stage COPD and pulmonary fibrosis, with cholecystitis s/p laparoscopic cholecystectomy in March 2017. She is being seen for long-term palliative and care support relating to her advanced COPD. Today she reports her shortness of air is not good, but it has been like that for several months. She is using her respiratory medications as prescribed and does not use morphine very often. She confirms that she has does not need new scripts currently. She reports that her pharmacy, [facility], never received the scripts that her PCP, DOMINGO Reyes, ordered on 07/13/17. I followed up with the PCP clinic and they will retransmit the orders (increasing Diovan to 160mg daily for elevated BP, and adding cephalexin 500mg TID x 10 days for ingrown R toenail ). The PCP also referred the patient to the yard operator at [facility] for follow-up on the R first toe ingrown toenail. I gave her the phone number for the clinic so she could arrange an appointment. She expressed fear about going to the yard operator since she had a poor and very painful experience in the past with an ingrown toenail treatment. In addition, she notes that the R toenail is less red and no longer hurts, and upon inspection it does appear to be resolving. Her freelance displayer Dr Gwyn Riggs, , is referring her to the to determine if she is a candidate for lung reduction or transplant. She has not heard anything from either Dr Ravi office or the . I will follow up. She becomes breathless with any exertion. When she moved from her recliner two steps to her walker and sat in its seat, her O2 sats were 93% with increased pulse of 102bpm. Pulse dropped back to 97 bpm after several minutes rest. She continues to be bothered by sinus symptoms after an initial period of improvement with Flonase. She is considering purchasing Navage nasal irrigation since she has seen it advertised on television, and we discussed this. Her [employer]URA caregiver quit 5 days ago and she has been without help since then. So far she is coping by using simple foods like frozen pot pies for meals. Her automotive painter, Mireya, has told her it might take up to 2 weeks, or more, to find a replacement. She says her former LAURA worker might be able to work with her 3 days a week and wants to speak to Mireya about this. She also reports that Marcos Pearl, from [employer], has come to her house a few times and helps her with referrals, for example, to a dentist. THERESA Stone met with her last week and has a repeat visit scheduled with the patient. I will ask her to follow up on the LAURA situation to see if she can assist. The patient has not yet completed a POLST or assigned a DPOA. Previously she said she would ask her sister. She has not spoken to her sister yet, and today she said she will speak to her son and daughter about the DPOA and advanced planning. When gently asked further about this, she repeated that she has to speak with her son and daughter. Social History - Living Situation Living arrangement: At home Living Situation: Alone (LAURA caregiver unexpectedly quit her job 5 days ago.) Support System: Not much family support[place] often. Sister also lives in the area, does not appear to speak to her often. Medications/Allergies - Medications Home Medications: Ambulatory Orders Medication Instructions Recorded Confirmed Albuterol Sulfate [Proair Hfa 1 - 2 puffs INH Q4H PRN 08/31/16 06/06/17 Inhaler] Atorvastatin Calcium 20 mg PO QPM 08/31/16 06/06/17 Fluticasone/Salmeterol [Advair 1 puffs INH BID 08/31/16 06/06/17 250-50 Diskus] Valsartan [Diovan] 80 mg PO DAILY #30 tablet 08/31/16 06/06/17 Morphine Sulfate [Morphine Sulf 5 mg PO Q3H PRN 03/29/17 06/06/17 Oral (Roxanol)] oxyCODONE [Roxicodone] 5 mg PO Q4HR PRN #30 tablet 03/30/17 06/06/17 Furosemide [Lasix] 20 mg PO DAILY PRN MDD This is 06/06/17 06/06/17 ordered PRN Multivitamin 1 tab PO DAILY 06/06/17 06/06/17 Potassium 10 meq PO PRN MDD Take with Lasix 06/06/17 for edema Vit D3 06/06/17 traMADol [Ultram] 50 mg PO QID PRN MDD Up to 4x day. 06/06/17 06/06/17 Not using it. Ondansetron [Ondansetron Odt] 8 mg PO Q8HR PRN 06/08/17 06/08/17 - Allergies Allergies/Adverse Reactions: Allergies Allergy/AdvReac Type Severity Reaction Status Date / Time No Known Drug Allergies Allergy Verified 03/27/17 16:53 Review of Systems - Cardiovascular Cariovascular: reports: Exertional dyspnea - Respiratory Respiratory: reports: Sputum production, Wheezing (expiratory), SOB at rest, SOB with exertion - Gastrointestinal Gastrointestinal: denies: Constipation - Genitourinary Genitourinary: denies: Dysuria Physical Examination - Vital Signs Temperature: 97.9 C Pulse Rate: 97 O2 Saturation: 93 Blood Pressure: 150/72 - Physical Exam General Appearance: positive: No acute distress Eyes Bilateral: positive: No lid inflammation, Conjunctivae nml, No scleral icterus Neck: positive: Trachea midline Respiratory: positive: Wheezes (expiratory, detectable with auscultation) Cardiovascular: positive: Regular rate & rhythm, No murmur, No gallop Skin: positive: Other (improvement in redness, swelling of right first toe) Extremities: positive: Nml appearance, No pedal edema, Pedal edema (minimal) Neurologic/Psychiatric: positive: Oriented x3, Sensation nml Palliative Care - POLST Patient has POLST: No Pain: Pain unchanged Drowsiness: None Nausea: None Anxiety: None Dyspnea: Moderate (4-6) (unchanged) Anorexia: None Insomnia: Sleeps well Constipation: No Feelings of wellbeing/Perceived Quality of Life: No change Performance Status: Previous level of function prior to this episode: Easily fatigued and breathless with any mobility. She initially had improvement in sinusitis after starting Flonase Current level of functioning: Fatigue, breathlessness unchanged. Sinus symptoms back to being poor after an initial improvement with Flonase. Palliative Care Performance Status: 50% - Palliative Care Discussion: Who is present: Myself and the patient. Surrogate decision maker: No DPOA. She originally was going to ask her sister. Today she states she needs to speak with her son and daughter. DPOA forms and POLST forms have been left numerous times. Patient/Family understanding of the illness: She knows her lung disease is serious, but says she does not know what will happen if she cannot get a lung transplant or reduction. She has not heard back from Dr. Riggs or about the referral to for evaluation. Patient/family concerns: She says she does not know or has not been told what to expect as far as the progress of her disease. When discussing any advanced planning, or her understanding of her disease and what she is expecting in the future, or hoping for the future, patient is consistently reluctant to talk about any progression of her disease or advanced care planning. It is unclear whether this reticence is lack of medical knowledge, cultural, or personality. When I bring up this topic, today she said she needs to talk to her son and daughter. Previously she was planning to speak with her sister about being a DPOA. Patient tends to focus on her immediate medical needs. Today she wanted help with obtaining the new prescriptions that her PCP ordered. She also requested advice on the Navage irrigation system. Family Conference: I inquired if it would be useful to have a family conference. She reiterated that she wants to talk with her children. Impression and Recommendations - Palliative Care Impression: This is a 66-year-old woman with severe end-stage COPD and pulmonary fibrosis whose functionality and respiratory status have not returned to baseline since a cholecystectomy in March 2017. She would benefit from assistance and support in logistically working with the medical system, such as her referral to for a pulmonary evaluation. Recommendations/Counseling Done: 1. Advanced care planning: POLST and DPOA still outstanding. She wants to speak with her son and daughter about this. Continue to make inquiries and offer support at each visit. Requested AMBULANCE ATTENDANT follow up for her LAURA caregiver situation. 2. COPD: Dr. Riggs is to refer patient to for evaluation for lung transplant or reduction. Follow up with that clinic about the referral status. 3. Dyspnea: Stable, but no improvement. Uses respiratory medications as prescribed, uses morphine occasionally as needed. Does not require refills at this time. Is considering purchasing Navage nasal irrigation system to alleviate sinus symptoms which aggravates her breathlessness; provided education and evaluation. 4. Elevated blood pressure: PCP increased Diovan to 160mg daily, but pharmacy did not receive script. I followed up with clinic and they resubmitted the script to pharmacy. I confirmed the pharmacy received it and will deliver. 5. R ingrown first toenail: PCP ordered cephalexin 500mg TID x 10 days and referred to [facility]. I had clinic resubmit script, and provided phone number to patient to make podiatry appointment if she chooses. The toe has improved, she reports no pain. She may not follow up; she reported a poor experience with prior ingrown toenail treatment. 6. Lower extremity edema: Improved. Continues on Lasix, continue to elevate lower extremities throughout the day. Time Spent: 45 minutes with greater than 50% of this done in counseling and coordination of care regarding COPD, elevated BP, chronic sinusitis symptom burden, and advanced care planning.
== END 2017-07-19 13:31 | disposition home or self-care (01) ==
LOC: PC 13:30
PROVIDERS: ATTEND Nurse Practitioner
DX: Z51.5 Encounter for palliative care (principal); J44.9 Chronic obstructive pulmonary disease, unspecified; Z99.81 Dependence on supplemental oxygen; J84.10 Pulmonary fibrosis, unspecified; Z90.49 Acquired absence of other specified parts of digestive tract; Z79.891 Long term (current) use of opiate analgesic; L60.0 Ingrowing nail; R03.0 Elevated blood-pressure reading, without diagnosis of hypertension; R60.0 Localized edema; J32.9 Chronic sinusitis, unspecified
CPT/HCPCS: 99349

== ENCOUNTER 2017-09-02 21:31 | Outpatient (CLI) | payer MEDICARE, MEDICAID | END 2017-09-02 21:32 | disposition critical access hospital (66) | LOC: EMS 21:31 | PROVIDERS: ATTEND Surgery | DX: R06.00 Dyspnea, unspecified (principal) | CPT/HCPCS: A0425; A0427 ==

== ENCOUNTER 2017-09-02 21:49 | Observation (INO) | payer MEDICARE, MEDICAID ==
[2017-09-02] MEDS ORDERED: ASPIRIN CHEW 81 MG TABLET PO STA (21:55)
--- NOTE | 2017-09-02 22:01 | ED Physician Documentation ---
PD HPI CHEST PAIN - Stated complaint Stated Complaint: CHEST PRESSURE - Chief complaint Chief Complaint: Cardiac - History obtained from History obtained from: Patient, EMS - History of Present Illness Timing - onset: Today Timing - onset during: Rest Timing - duration: Minutes (20) Timing - details: Abrupt onset Pain level max: 8 Pain level now: 0 Quality: Pressure, Tightness, Aching, Dull Location: Substernal Radiation: Other (non-radiating) Improved by: Rest Worsened by: Exertion Associated symptoms: No: Shortness of air, Diaphoresis, Nausea, Vomiting, Feeling faint / dizzy, General Weakness, Palpitations, Cough Similar symptoms before: Has not had sx before Recently seen: Not recently seen Review of Systems Ten Systems: 10 systems reviewed and negative Constitutional: denies: Fever, Chills Ears: denies: Ear pain Nose: denies: Rhinorrhea / runny nose, Congestion Throat: denies: Sore throat Respiratory: denies: Cough GI: denies: Abdominal Pain, Nausea, Vomiting, Diarrhea Skin: denies: Rash Musculoskeletal: denies: Neck pain, Back pain Neurologic: denies: Focal weakness, Numbness, Headache PD PAST MEDICAL HISTORY - Past Medical History Cardiovascular: Hypertension Respiratory: COPD (End Stage on 4L of O2), Other (Pulmonary Fibrosis, Pulmonary Hypertension) Neuro: None Endocrine/Autoimmune: None GI: Cholelithiasis : None HEENT: None Psych: Anxiety Musculoskeletal: Osteoarthritis Derm: None - Past Surgical History Past Surgical History: No HEENT: Tonsil/Adenoidectomy - Present Medications Home Medications: Ambulatory Orders Medication Instructions Recorded Confirmed Albuterol Sulfate [Proair Hfa 1 - 2 puffs INH Q4H PRN 08/31/16 09/02/17 Inhaler] Atorvastatin Calcium 20 mg PO QPM 08/31/16 09/02/17 Fluticasone/Salmeterol [Advair 1 puffs INH BID 08/31/16 09/02/17 250-50 Diskus] Valsartan [Diovan] 80 mg PO DAILY #30 tablet 08/31/16 09/02/17 Morphine Sulfate [Morphine Sulf 5 mg PO Q3H PRN 03/29/17 09/02/17 Oral (Roxanol)] Multivitamin 1 tab PO DAILY 06/06/17 09/02/17 Vit D3 3,000 unit PO DAILY 06/06/17 09/02/17 - Allergies Allergies/Adverse Reactions: Allergies Allergy/AdvReac Type Severity Reaction Status Date / Time No Known Drug Allergies Allergy Verified 09/02/17 22:06 - Social History Does the pt smoke?: No Smoking Status: Former smoker Does the pt drink ETOH?: No Does the pt have substance abuse?: No - Immunizations Immunizations: TDAP >10years/unknown - POLST Patient has POLST: No POLST Status: Full Code PD ED PE NORMAL - Vitals Vital signs reviewed: Yes - General General: Alert and oriented X 3, No acute distress, Other (on 4L NC, normal home O2) - HEENT HEENT: PERRL, Moist mucous membranes - Neck Neck: Supple, no meningeal sign - Cardiac Cardiac: RRR, Strong equal pulses - Respiratory Respiratory: No respiratory distress, Other (diminished BS B) - Abdomen Abdomen: Soft, Non tender, Non distended - Derm Derm: Warm and dry - Extremities Extremities: No calf tenderness / cord - Neuro Neuro: Alert and oriented X 3 - Psych Psych: Normal mood, Normal affect Results - Vitals Vitals: Vital Signs - 24 hr 09/02/17 09/02/17 21:52 22:31 Temperature 36.8 C Heart Rate 96 78 Respiratory 18 18 Rate Blood Pressure 166/72 H 146/58 H O2 Saturation 95 97 Oxygen O2 Source Nasal cannula - EKG (time done) 2200 Rate: Rate (enter#) (92) Rhythm: NSR [place]: Normal Intervals: Normal DC QRS: Normal Ischemia: Non specific changes - Labs Labs: Laboratory Tests 09/02/17 09/02/17 09/02/17 22:18 22:18 22:18 WBC 6.7 RBC 3.84 L Hgb 11.9 L Hct 35.1 L MCV 91.4 MCH 31.1 H MCHC 34.0 RDW 14.3 Plt Count 269 MPV 6.1 L Neut # 4.0 Lymph # 1.9 [place] # 0.6 Eos # 0.1 Baso # 0.1 Absolute Nucleated RBC 0.00 Nucleated RBC % 0.0 Sodium 136 Potassium 3.9 Chloride 92 L Carbon Dioxide 32 Anion Gap 12.0 BUN 9 Creatinine 0.5 Estimated GFR (MDRD) 123 Glucose 110 H Calcium 9.3 Total Bilirubin 0.5 AST 20 ALT 14 Alkaline Phosphatase 70 Troponin I < 0.04 Total Protein 7.5 Albumin 4.1 Globulin 3.4 Albumin/Globulin Ratio 1.2 Lipase 32 - Rads (name of study) cxr Radiology: Prelim report reviewed, EMP read contemporaneously, See rad report ( Hyperinflation, otherwise unremarkable) PD MEDICAL DECISION MAKING - ED course Complexity details: reviewed old records, reviewed results, re-evaluated patient , considered differential (No ST elevation DC, no aortic dissection, no PE, no tension pneumothorax, no aortic aneurysm), d/w patient ED course: Patient is a 67-year-old female with a history of end-stage COPD and pulmonary fibrosis, had 20 minutes of substernal chest pain tonight. Resolved prior to arrival. Did not recur in the emergency department. Worse with exertion, better with rest. No acute findings on EKG, telemetry, laboratory findings nor chest x-ray. Will place the patient observation for rule out DC. Discussed the hospitalist, Dr. Johns, who accepts. This document was made in part using voice recognition software. While efforts are made to proofread this document, sound alike and grammatical errors may occur. Departure - Departure Disposition: ED Place in Observation Clinical Impression: Chest pain Qualifiers: Chest pain type: unspecified Qualified Code(s): R07.9 - Chest pain, unspecified Condition: Stable Discharge Date/Time: 09/03/17 00:15
[2017-09-02] MEDS ORDERED: ASPIRIN CHEW 81 MG TABLET ONE (22:06)
--- NOTE | 2017-09-02 22:29 | XRAY Preliminary Report ---
Exam: XR CHEST 1 VIEW IMPRESSION: Hyperinflation, otherwise unremarkable single view chest. [facility] SITE ID: [id number]
[2017-09-02 22:31] LABS: BASOPHILS # (AUTO) 0.1 10^3/uL (0.0-0.1); BASOPHILS % (AUTO) 1.1 %; EOSINOPHILS # (AUTO) 0.1 10^3/uL (0.0-0.7); EOSINOPHILS % (AUTO) 1.8 %; HCT - HEMATOCRIT 35.1 % (37.0-47.0); HGB - HEMOGLOBIN 11.9 g/dL (12.0-16.0); LYMPHOCYTES # (AUTO) 1.9 10^3/uL (1.5-3.5); LYMPHOCYTES % (AUTO) 27.8 %; MEAN CORPUSCULAR HEMOGLOBIN 31.1 pg (27.0-31.0); MEAN CORPUSCULAR VOLUME 91.4 fL (81.0-99.0); MEAN PLATELET VOLUME 6.1 fL (7.9-10.8); MONOCYTES # (AUTO) 0.6 10^3/uL (0.0-1.0); MONOCYTES % (AUTO) 9.1 %; NEUTROPHILS % (AUTO) 60.2 %; RED BLOOD COUNT 3.84 10^6/uL (4.20-5.40); RED CELL DISTRIBUTION WIDTH 14.3 % (12.0-15.0); UNCORRECTED WHITE BLOOD COUNT 6.7 x10^3/uL; WHITE BLOOD COUNT 6.7 x10^3/uL (4.8-10.8)
--- NOTE | 2017-09-02 22:32 | XRAY Report ---
EXAM: CHEST RADIOGRAPHY EXAM DATE: 09/02/2017 10:08 PM. CLINICAL HISTORY: Chest pain. COMPARISON: 08/31/2016. TECHNIQUE: 1 view. FINDINGS: Lungs/Pleura: Hyperinflated lungs. No focal opacities evident. No pleural effusion. No pneumothorax. Mediastinum: Within exam limitations, the cardiomediastinal contour is normal. Other: No bony abnormality identified. IMPRESSION: Hyperinflation, otherwise unremarkable single view chest. [facility] Referring Provider Line: [phone] SITE ID: [id number]
[2017-09-02 22:38] LABS: ALBUMIN/GLOBULIN RATIO 1.2 (1.0-2.2); BILIRUBIN,TOTAL 0.5 mg/dL (0.2-1.0); CALCIUM 9.3 mg/dL (8.5-10.3); CREATININE 0.5 mg/dL (0.4-1.0); POTASSIUM 3.9 mmol/L (3.5-5.0); TOTAL PROTEIN 7.5 g/dL (6.7-8.2)
[2017-09-02] MEDS ORDERED: MORPHINE SOL 10 MG/0.5 ML SYRINGE PO PRN (23:07)
[2017-09-02] MEDS ORDERED: ZOLPIDEM 5 MG TABLET PO PRN (23:08)
[2017-09-02] MEDS ORDERED: ACETAMINOPHEN 325 MG TABLET PO PRN (23:08)
[2017-09-02] MEDS ORDERED: ONDANSETRON 4 MG/2 ML VIAL IVP PRN (23:08)
[2017-09-02] MEDS ORDERED: NITROGLYCERIN SL 0.4 MG TABLET SL PRN (23:08)
[2017-09-02] MEDS ORDERED: SODIUM CHLORIDE FLUSH 0.9% 10 ML SYRINGE IVP PRN (23:08)
[2017-09-02] MEDS ORDERED: PROCHLORPERAZINE 10 MG/2 ML VIAL IVP PRN (23:08)
[2017-09-02] MEDS ORDERED: oxyCODONE 5 MG TABLET PO PRN ×2 (23:08)
--- NOTE | 2017-09-02 23:15 | HISTORY & PHYSICAL EXAMINATION ---
Chief Complaint - Chief Complaint Chief Complaint: Chest Pain History of Present Illness - Admitted From Admitted From:: Emergency department - History Obtained From Records Reviewed: Yes History obtained from: Patient Exam Limitations: None - History of Present Illness HPI Comment/Other: Patient is a 67-year-old female with a past medical history significant for end- stage COPD on 4 L of oxygen, pulmonary fibrosis, pulmonary hypertension, anxiety , osteoarthritis and hypertension who presented to the emergency department with a chief complaint of chest pain. The patient states that she was in her normal state of health this evening when she took a dose of morphine which is a normal home medication but she took it on an empty stomach. She states that within an hour of taking the morphine she began feeling nauseous. She states that she then broke out in a cold sweat and began having chest pain. She states that she was standing and when she moved the chest pain became worse. She states that the pain was located in the center of her chest with no radiation. She denied having had any shortness of air with the chest pain. She denied having any palpitations. She denied any orthopnea, PND or any increased lower extremity swelling. The patient states that she stood completely still and called her neighbor. The patient states the neighbor came over and she asked the neighbor to get her some Pepto-Bismol. The patient states that she took the Pepto-Bismol and states that her chest pain resolved. She states that the pain was there for nearly 10 minutes before resolving. She is not sure if it was the Pepto-Bismol that caused it to resolve or if it resolves on its own. The patient states that she has had one similar episode that occurred about 12 years ago she states that that time she never came to the hospital but the episode resolved on its own and did not return. The patient was given an aspirin when she arrived in the emergency department but did not have any further pain. The patient denies any headaches, blurred vision, runny nose, sore throat, nasal congestion, difficulty swallowing, worse than normal shortness of breath, cough, fevers, chills, abdominal pain, vomiting, diarrhea, constipation, urinary urgency, urinary frequency, dysuria, joint pains, muscle aches, back pain, neck stiffness or any focal neurologic deficits. On presentation to the emergency department the patient was hypertensive and mildly tachycardic but otherwise her vital signs were within normal limits. The patient had no fever and was on her baseline oxygen requirement of 4 L with good saturation. The patient was given an albuterol treatment in the emergency department along with aspirin. Patient's chest x-ray revealed hyperinflation but was otherwise unremarkable. The patient's EKG showed a normal sinus rhythm with no ST elevations noted. The patient's initial troponin was negative and the remainder of the patient's lab work was within normal limits. Given the patient's risk factors of age, hypertension and history of tobacco abuse the patient was placed in observation to rule out acute coronary syndrome. History - Past Medical History Cardiovascular: reports: Hypertension Respiratory: reports: COPD (End Stage on 4L of O2), Other (Pulmonary Fibrosis, Pulmonary Hypertension) Neuro: reports: None Endocrine/Autoimmune: reports: None GI: reports: Cholelithiasis : reports: None HEENT: reports: None Psych: reports: Anxiety Musculoskeletal: reports: Osteoarthritis Derm: reports: None MRSA Hx?: No - Past Surgical History General: reports: Cholecystectomy HEENT: reports: Tonsil/Adenoidectomy - Family & Social History Family History Comment/Other: Patient's mother had arthritis but there is no family history of diabetes, heart disease, cancer or pulmonary disease. Living arrangement: At home Living Situation: Alone Social History Notes: Patient is a woman who lives alone in [place]. She was born in [place] and is retired. She has two children. The patient has lived on [facility] since 1983. Prior to that she lived in the [facility]. The patient has a daughter and son both of whom live on [facility]. The patient quit smoking sometime ago but smoked 1 pack a day for over 50 years. The patient does drink 1 beer a night. She denies any other illicit drug use. - Substance History Use: Uses substance without health or social issues: NONE (Quit smoking but previously smoked 1PPD for over 50 years), Alcohol (1 beer a night) Abuse: Recurrent use of substance despite neg consequences: NONE Dependence: Experiences withdrawal or developed tolerances: NONE - POLST Patient has POLST: No POLST Status: Full Code Meds/Allgy - Home Medications Home Medications: Ambulatory Orders Medication Instructions Recorded Confirmed Albuterol Sulfate [Proair Hfa 1 - 2 puffs INH Q4H PRN 08/31/16 09/02/17 Inhaler] Atorvastatin Calcium 20 mg PO QPM 08/31/16 09/02/17 Fluticasone/Salmeterol [Advair 1 puffs INH BID 08/31/16 09/02/17 250-50 Diskus] Valsartan [Diovan] 80 mg PO DAILY #30 tablet 08/31/16 09/02/17 Morphine Sulfate [Morphine Sulf 5 mg PO Q3H PRN 03/29/17 09/02/17 Oral (Roxanol)] Multivitamin 1 tab PO DAILY 06/06/17 09/02/17 Vit D3 3,000 unit PO DAILY 06/06/17 09/02/17 - Allergies Allergies/Adverse Reactions: Allergies Allergy/AdvReac Type Severity Reaction Status Date / Time No Known Drug Allergies Allergy Verified 09/02/17 22:06 Review of Systems - Other Findings Other Findings: A comprehensive review of systems was performed the pertinent positives and negatives are stated above in the HPI and the remainder of the review of systems is negative. Exam - Vital Signs Reviewed Vital Signs: Yes Vital Signs: Vital Signs x48h Temp Pulse Resp BP Pulse Ox 09/02/17 22:31 78 18 146/58 H 97 09/02/17 21:52 36.8 C 96 18 166/72 H 95 - Physical Exam General Appearance: positive: Alert, Anxious, Other (On oxygen) Eyes Bilateral: positive: Normal inspection, PERRL, EOMI, No lid inflammation, Conjunctivae nml, No scleral icterus ENT: positive: ENT inspection nml, Pharynx nml, No signs of dehydration. negative: Purulent nasal drainage, Pharyngeal erythema, Oral lesions Neck: positive: Nml inspection, Thyroid nml, No JVD, Trachea midline. negative : Thyromegaly, Lymphadenopathy (R), Lymphadenopathy (L), Carotid bruit, Tracheal deviation Respiratory: positive: Chest non-tender, No respiratory distress, Rales ( Inspiratory and expiratory crackles) Cardiovascular: positive: Regular rate & rhythm, No murmur, No gallop Peripheral Pulses: positive: 2+ Abdomen: positive: Non-tender, No organomegaly, Nml bowel sounds, No distention. negative: Guarding, Rebound, Hepatomegaly Back: positive: Nml inspection. negative: CVA tenderness (R), CVA tenderness (L ) Skin: positive: Color nml, No rash, Warm. negative: Cyanosis, Pallor, Skin rash Extremities: positive: Non-tender, Full ROM, Nml appearance, No pedal edema Neurologic/Psychiatric: positive: Oriented x3, CN's nml (2-12), Motor nml, Sensation nml, Mood/affect nml Conclusion/Plan - Problem List (1) Chest pain Conclusion/Plan: Patient presented with chest pain that occurred acutely at home less than an hour prior to arrival. Located in the center of the chest resolved with Pepto- Bismol within 15 minutes. Patient has risk factors of age, hypertension and history of tobacco abuse. Chest x-ray negative, patient not in COPD exacerbation, EKG negative and troponin negative. Patient placed in observation for rule out of acute coronary syndrome. Plan: Serial troponins x3 Telemetry monitoring Nitroglycerin when necessary for chest pain Aspirin Lipitor Check lipid profile Echo Qualifiers: Chest pain type: unspecified Qualified Code(s): R07.9 - Chest pain, unspecified (2) COPD (chronic obstructive pulmonary disease) Conclusion/Plan: Patient has history of COPD after years of smoking. Patient also has pulmonary fibrosis with pulmonary hypertension. Patient is on 4 L of oxygen at home. She is being followed by palliative care. The patient does take Roxanol as needed. Patient currently appears to be stable she is not in respiratory distress. Plan: Patient will be continued on home oxygen Patient will receive duo nebs as needed Patient will be continued on home dose of Roxanol Qualifiers: COPD type: unspecified COPD Qualified Code(s): J44.9 - Chronic obstructive pulmonary disease, unspecified (3) Hypertension Conclusion/Plan: Patient has history of hypertension patient's blood pressure was slightly elevated on presentation. We will continue to monitor patient's blood pressure and continue her home medication. Qualifiers: Hypertension type: essential hypertension Qualified Code(s): I10 - Essential (primary) hypertension (4) Prophylactic use of low molecular weight heparin for venous thromboembolism Conclusion/Plan: Patient will be placed on Lovenox for DVT prophylaxis while she is hospitalized. - Lab Results Lab results reviewed: Yes Fish Bones: 09/02/17 22:18 09/02/17 22:18 Other Lab Results: Laboratory Results WBC 6.7 x10^3/uL (4.8-10.8) 09/02/17 22:18 RBC 3.84 10^6/uL (4.20-5.40) L 09/02/17 22:18 Hgb 11.9 g/dL (12.0-16.0) L 09/02/17 22:18 Hct 35.1 % (37.0-47.0) L 09/02/17 22:18 MCV 91.4 fL (81.0-99.0) 09/02/17 22:18 MCH 31.1 pg (27.0-31.0) H 09/02/17:18 MCHC 34.0 g/dL (32.0-36.0) 09/02/17:18 RDW 14.3 % (12.0-15.0) 09/02/17:18 Plt Count 269 10^3/uL (130-450) 09/02/17:18 MPV 6.1 fL (7.9-10.8) L 09/02/17 22:18 Neut # 4.0 10^3/uL (1.5-6.6) 09/02/17:18 Lymph # 1.9 10^3/uL (1.5-3.5) 09/02/17 22:18 [place] # 0.6 10^3/uL (0.0-1.0) 09/02/17:18 Eos # 0.1 10^3/uL (0.0-0.7) 09/02/17 22:18 Baso # 0.1 10^3/uL (0.0-0.1) 09/02/17:18 Absolute Nucleated RBC 0.00 x10^3/uL 09/02/17:18 Nucleated RBC % 0.0 /100WBC 09/02/17 22:18 Sodium 136 mmol/L (135-145) 09/02/17 22:18 Potassium 3.9 mmol/L (3.5-5.0) 09/02/17 22:18 Chloride 92 mmol/L (101-111) L 09/02/17 22:18 Carbon Dioxide 32 mmol/L (21-32) 09/02/17 22:18 Anion Gap 12.0 (6-13) 09/02/17 22:18 BUN 9 mg/dL (6-20) 09/02/17 22:18 Creatinine 0.5 mg/dL (0.4-1.0) 09/02/17 22:18 Estimated GFR (MDRD) 123 (>89) 09/02/17 22:18 Glucose 110 mg/dL (70-100) H 09/02/17 22:18 Calcium 9.3 mg/dL (8.5-10.3) 09/02/17 22:18 Total Bilirubin 0.5 mg/dL (0.2-1.0) 09/02/17 22:18 AST 20 IU/L (10-42) 09/02/17 22:18 ALT 14 IU/L (10-60) 09/02/17 22:18 Alkaline Phosphatase 70 IU/L (42-121) 09/02/17 22:18 Troponin I < 0.04 ng/mL (<0.49) 09/02/17 22:18 Total Protein 7.5 g/dL (6.7-8.2) 09/02/17 22:18 Albumin 4.1 g/dL (3.2-5.5) 09/02/17 22:18 Globulin 3.4 g/dL (2.1-4.2) 09/02/17 22:18 Albumin/Globulin Ratio 1.2 (1.0-2.2) 09/02/17 22:18 Lipase 32 U/L (22-51) 09/02/17 22:18 - Diagnostic Imaging Results Diagnostic Imaging Results: positive: Final report reviewed Diagnostic Imaging Results Comments: Chest x-ray Impression: Hyperinflation with no acute cardiopulmonary abnormality. - EKG Results EKG Interpreted Independently: Yes EKG Findings: Sinus rhythm no ST elevations. Issues/Core Measures - Anticipated LOS Anticipated Stay Length: Less than 2 midnights - DVT/VTE - Prophylaxis VTE/DVT Prophylaxis med ordered at admit?: Yes
[2017-09-03] MEDS ORDERED: IPRATROPIUM/ALBUTEROL 3 ML NEB INH PRN (00:58)
[2017-09-03] MEDS ORDERED: IPRATROPIUM/ALBUTEROL 3 ML NEB INH SCH (00:58)
[2017-09-03 04:22] LABS: BASOPHILS % (AUTO) 0.7 %; EOSINOPHILS # (AUTO) 0.1 10^3/uL (0.0-0.7); EOSINOPHILS % (AUTO) 1.5 %; HCT - HEMATOCRIT 34.2 % (37.0-47.0); HGB - HEMOGLOBIN 11.5 g/dL (12.0-16.0); LYMPHOCYTES # (AUTO) 1.6 10^3/uL (1.5-3.5); LYMPHOCYTES % (AUTO) 24.6 %; MEAN CORPUSCULAR HEMOGLOBIN 31.1 pg (27.0-31.0); MEAN CORPUSCULAR HGB CONC 33.5 g/dL (32.0-36.0); MEAN CORPUSCULAR VOLUME 92.9 fL (81.0-99.0); MEAN PLATELET VOLUME 6.2 fL (7.9-10.8); MONOCYTES # (AUTO) 0.6 10^3/uL (0.0-1.0); MONOCYTES % (AUTO) 9.8 %; NEUTROPHILS # (AUTO) 4.1 10^3/uL (1.5-6.6); NEUTROPHILS % (AUTO) 63.4 %; RED BLOOD COUNT 3.68 10^6/uL (4.20-5.40); RED CELL DISTRIBUTION WIDTH 14.4 % (12.0-15.0); UNCORRECTED WHITE BLOOD COUNT 6.5 x10^3/uL; WHITE BLOOD COUNT 6.5 x10^3/uL (4.8-10.8)
[2017-09-03 04:44] LABS: ALBUMIN/GLOBULIN RATIO 1.2 (1.0-2.2); BILIRUBIN,TOTAL 0.5 mg/dL (0.2-1.0); BUN - BLOOD UREA NITROGEN 11 mg/dL (6-20); CALCIUM 8.9 mg/dL (8.5-10.3); CARBON DIOXIDE - CO2 31 mmol/L (21-32); CHLORIDE 95 mmol/L (101-111); CHOL/HDL RATIO 3.1 (<4.4); CHOLESTEROL 136 mg/dL; CREATININE 0.6 mg/dL (0.4-1.0); GFR - MDRD 100 (>89); GLUCOSE 123 mg/dL (70-100); HDL CHOLESTEROL 44 mg/dL; LDL/HDL RATIO 1.8 (<4.4); POTASSIUM 3.5 mmol/L (3.5-5.0); SODIUM 134 mmol/L (135-145); TOTAL PROTEIN 6.3 g/dL (6.7-8.2); TRIGLYCERIDES 72 mg/dL; VLDL CHOLESTEROL 14 mg/dL
[2017-09-03] MEDS ORDERED: SODIUM CHLORIDE FLUSH 0.9% 10 ML SYRINGE IVP SCH (06:00)
[2017-09-03] MEDS ORDERED: PANTOPRAZOLE 40 MG TABLET PO SCH (07:00)
[2017-09-03] MEDS ORDERED: ENOXAPARIN 40 MG/0.4 ML SYRINGE SUBQ SCH (09:00)
[2017-09-03] MEDS ORDERED: POLYETHYLENE GLYCOL 3350 17 GM PACKET PO SCH (09:00)
[2017-09-03] MEDS ORDERED: ASPIRIN EC 81 MG TABLET PO SCH (09:00)
[2017-09-03 11:40] VITALS: BP 111/54
--- NOTE | 2017-09-03 11:57 | Discharge Plan ---
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 - [facility] No Smoking: If you smoke, Please STOP! Call for help.
--- NOTE | 2017-09-03 12:00 | DISCHARGE SUMMARY ---
Discharge Summary Admit Date: 09/02/17 Discharge Date: 09/03/17 Discharging Provider: ANAYA Code Status: Attempt Resuscitation Condition at Discharge: Stable Discharge Disposition: 01 Home, Self Care Discharge Facility Name: home - DIAGNOSES Admission Diagnoses: (1) Chest pain (2) COPD (chronic obstructive pulmonary disease) (3) Hypertension Discharge Diagnoses with Status of Each Condition: (1) Chest pain resolved, no more chest pain ECHO, troponin serial, EKG are unremarkable (2) COPD (chronic obstructive pulmonary disease) chronic, stable (3) Hypertension stable - HPI History of Present Illness: please refer from Dr. Escamilla's HPI on 09/02/17 as the following Patient is a 67-year-old female with a past medical history significant for end- stage COPD on 4 L of oxygen, pulmonary fibrosis, pulmonary hypertension, anxiety , osteoarthritis and hypertension who presented to the emergency department with a chief complaint of chest pain. The patient states that she was in her normal state of health this evening when she took a dose of morphine which is a normal home medication but she took it on an empty stomach. She states that within an hour of taking the morphine she began feeling nauseous. She states that she then broke out in a cold sweat and began having chest pain. She states that she was standing and when she moved the chest pain became worse. She states that the pain was located in the center of her chest with no radiation. She denied having had any shortness of air with the chest pain. She denied having any palpitations. She denied any orthopnea, PND or any increased lower extremity swelling. The patient states that she stood completely still and called her neighbor. The patient states the neighbor came over and she asked the neighbor to get her some Pepto-Bismol. The patient states that she took the Pepto-Bismol and states that her chest pain resolved. She states that the pain was there for nearly 10 minutes before resolving. She is not sure if it was the Pepto-Bismol that caused it to resolve or if it resolves on its own. The patient states that she has had one similar episode that occurred about 12 years ago she states that that time she never came to the hospital but the episode resolved on its own and did not return. The patient was given an aspirin when she arrived in the emergency department but did not have any further pain. The patient denies any headaches, blurred vision, runny nose, sore throat, nasal congestion, difficulty swallowing, worse than normal shortness of breath, cough, fevers, chills, abdominal pain, vomiting, diarrhea, constipation, urinary urgency, urinary frequency, dysuria, joint pains, muscle aches, back pain, neck stiffness or any focal neurologic deficits. On presentation to the emergency department the patient was hypertensive and mildly tachycardic but otherwise her vital signs were within normal limits. The patient had no fever and was on her baseline oxygen requirement of 4 L with good saturation. The patient was given an albuterol treatment in the emergency department along with aspirin. Patient's chest x-ray revealed hyperinflation but was otherwise unremarkable. The patient's EKG showed a normal sinus rhythm with no ST elevations noted. The patient's initial troponin was negative and the remainder of the patient's lab work was within normal limits. Given the patient's risk factors of age, hypertension and history of tobacco abuse the patient was placed in observation to rule out acute coronary syndrome. - HOSPITAL COURSE Hospital Course: pt was admitted for chest pain, and R/O ACS. pt was in the observation floor, with tele, vital, troponin serial, EKG PRN, ECHO test. Pt denies any more chest pain in the floor. troponin serial three times, EKG, ECHO are all unremarkable. pt was d/c home to follow up the PCP and exploration manager - ALLERGIES Allergies/Adverse Reactions: Allergies Allergy/AdvReac Type Severity Reaction Status Date / Time No Known Drug Allergies Allergy Verified 09/02/17 22:06 - MEDICATIONS Home Medications: Ambulatory Orders Medication Instructions Recorded Confirmed Albuterol Sulfate [Proair Hfa 1 - 2 puffs INH Q4H PRN 08/31/16 09/02/17 Inhaler] Atorvastatin Calcium 20 mg PO QPM 08/31/16 09/02/17 Fluticasone/Salmeterol [Advair 1 puffs INH BID 08/31/16 09/02/17 250-50 Diskus] Valsartan [Diovan] 80 mg PO DAILY #30 tablet 08/31/16 09/02/17 Morphine Sulfate [Morphine Sulf 5 mg PO Q3H PRN 03/29/17 09/02/17 Oral (Roxanol)] Multivitamin 1 tab PO DAILY 06/06/17 09/02/17 Vit D3 3,000 unit PO DAILY 06/06/17 09/02/17 - PHYSICAL EXAM AT DISCHARGE General Appearance: positive: No acute distress, Alert. negative: Lethargic Eyes Bilateral: positive: Normal inspection, PERRL, EOMI, No lid inflammation, Conjunctivae nml ENT: positive: ENT inspection nml, Pharynx nml, No signs of dehydration. negative: Purulent nasal drainage, Pharyngeal erythema, Oral lesions Neck: positive: Nml inspection, Thyroid nml, No JVD, Trachea midline. negative : Thyromegaly, Lymphadenopathy (R), Lymphadenopathy (L), Stiff neck, Carotid bruit, Swelling/bruising, Tracheal deviation Respiratory: positive: Chest non-tender, No respiratory distress, Breath sounds nml. negative: Wheezes, Rales, Rhonchi Cardiovascular: positive: Regular rate & rhythm, No murmur, No gallop. negative : Irregularly irregular, Extrasystoles, Tachycardia, Bradycardia, Systolic murmur, Diastolic murmur Peripheral Pulses: positive: 2+ Abdomen: positive: Non-tender, Nml bowel sounds, No distention. negative: Tenderness, Guarding, Rebound Back: positive: Nml inspection. negative: CVA tenderness (R), CVA tenderness (L ) Skin: positive: Color nml, No rash, Warm, Dry. negative: Cyanosis, Diaphoresis , Pallor, Skin rash, Decubitus Extremities: positive: Non-tender, Full ROM, Nml appearance. negative: Calf tenderness, Joint swelling, Florecita's sign/cords Neurologic/Psychiatric: positive: Oriented x3, Motor nml, Sensation nml. negative: Mood/affect nml, Sensory loss, Facial droop, Slurred/abnml speech, Depressed mood/affect - LABS Result Diagrams: 09/03/17 04:05 09/03/17 04:05 - FOLLOW UP Follow Up: pt is advised to follow up PCP in two weeks, and follow up exploration manager in the schedule
[2017-09-03] MEDS ORDERED: ATORVASTATIN 10 MG TABLET PO SCH (21:00)
== END 2017-09-03 13:23 | disposition home or self-care (01) ==
LOC: EDUNIT# → ED 21:49 → OBS 23:08
PROVIDERS: ADMIT Internal Medicine; ATTEND Nurse Practitioner Gerontology
DX: R07.2 Precordial pain (principal); J44.9 Chronic obstructive pulmonary disease, unspecified; I10 Essential (primary) hypertension; J84.10 Pulmonary fibrosis, unspecified; I27.20 Pulmonary hypertension, unspecified; F41.9 Anxiety disorder, unspecified; Z87.891 Personal history of nicotine dependence; Z99.81 Dependence on supplemental oxygen; Z79.891 Long term (current) use of opiate analgesic
CPT/HCPCS: 36415; 71010; 80053; 80061; 83690; 83880; 84484; 85025; 93005; 93306; 94640; 94664; 96374; 99284; 99285; A9270; G0378; J1650; J7620

== ENCOUNTER 2017-09-15 12:30 | Outpatient (CLI) | payer MEDICARE, MEDICAID ==
--- NOTE | 2017-09-15 15:15 | CONSULTATION NOTE ---
Palliative Care Follow Up - Referral Referring Provider: DOMINGO Reyes Time of Visit: 12:30 Referral setting: Home (Seen in home setting due to taxing and considerable effort required to leave the home secondary to severe end-stage COPD and inability to ambulate more than a few feet with the walker before needing sit and rest. She is on 24-hr oxygen.) - Information Sources Records reviewed: Previous records reviewed History/Review of Systems obtained from: Patient Exam limitations: Clinical condition (breathlessness from lung disease makes her fatigue easily when she speaks) - History of Present Illness Update Brief HPI Update: This is a 66-year-old female with severe end stage COPD and pulmonary fibrosis, with cholecystitis s/p laparoscopic cholecystectomy in March 2017. She is being seen for long-term palliative care and care support related to her advanced COPD. Almost 2 weeks ago, on 09/02/17, she had significant sudden chest pain and was taken to the ED for observation. Diagnostic tests were inconclusive except to indicate that it was non-cardiac. It might have been related to her taking morphine on an empty stomach. Since this incident she has not been taking any morphine, fearful that it would cause another episode of chest pain; however her shortness of air has increased. Prior to stopping use of morphine, she had been using it about once a day. We discussed this at length and I recommended that she try to schedule morphine routinely throughout the day, perhaps starting at 3 times per day, in order to control the shortness of air and increase her functionality and mobility. She verbalized agreement to this plan, I wrote a new script, dropped it at [facility], and I will follow up with her next week. Today she does note feeling weak, but she has not eaten since last night, and it is now 1 PM. She does report having a exterior interior specialist appointment next week and admits that shortness of air is getting worse. Her O2 sats drop to 85% after she ambulates just a few feet. She is unable to ambulate in her walker without stopping to rest, so she spends the majority of her time sitting in her chair. She has not yet chosen a DPOA or filled out the POLST form. I did bring this up again, and her remark was that everyone in her family would argue over any decisions, and I did note that this is one reason it is important to fill out care wishes and assign a DPOA. We did leave that open for future discussion. MATTHIAS has also repeatedly inquired about POLST and choosing a DPOA. At this time, MATTHIAS has placed patient on hold until further notice. Of note is that some progress was made since the SW visit on 09/05: the patient has booked an appointment with the exterior interior specialist on 09/19/17. Social History - Living Situation Living arrangement: At home Living Situation: Alone (has [employer]URA caregiver help regularly) Support System: Not much family support. [place] often. Sister also lives in the area, does not appear to speak to her often. Medications/Allergies - Medications Home Medications: Ambulatory Orders Medication Instructions Recorded Confirmed Albuterol Sulfate [Proair Hfa 1 - 2 puffs INH Q4H PRN 08/31/16 09/15/17 Inhaler] Atorvastatin Calcium 20 mg PO QPM 08/31/16 09/15/17 Fluticasone/Salmeterol [Advair 1 puffs INH BID 08/31/16 09/15/17 250-50 Diskus] Valsartan [Diovan] 80 mg PO DAILY #30 tablet 08/31/16 09/15/17 Morphine Sulfate [Morphine Sulf 5 mg PO Q3H PRN 03/29/17 09/15/17 Oral (Roxanol)] Multivitamin 1 tab PO DAILY 06/06/17 09/15/17 Vit D3 2,000 unit PO DAILY 06/06/17 09/15/17 Fluticasone Propionate 1 spray IH BID PRN 09/15/17 09/15/17 Morphine Sulfate [Morphine Sulf 5 mg PO TID 09/15/17 09/15/17 Oral (Roxanol)] Ondansetron [Zofran Odt] 8 mg PO Q8HR PRN 09/15/17 09/15/17 - Allergies Allergies/Adverse Reactions: Allergies Allergy/AdvReac Type Severity Reaction Status Date / Time No Known Drug Allergies Allergy Verified 09/02/17 22:06 Review of Systems - Cardiovascular Cardiovascular: reports: Decr. exercise tolerance - Respiratory Respiratory: reports: Cough, Sputum production, Wheezing, SOB with exertion - Gastrointestinal Gastrointestinal: denies: Abdominal pain, Constipation, Nausea, Vomiting - Genitourinary Genitourinary: denies: Dysuria, Frequency, Urgency - Musculoskeletal Musculoskeletal: reports: Muscle pain (at baseline, doesn't use pain medications ) - Neurological Neurological: reports: Memory problems Physical Exam - Vital Signs Temperature: 99.4 F Pulse Rate: 92 O2 Saturation: 99 (on O2 via nasal cannula) Blood Pressure: 150/70 - Physical Exam General Appearance: positive: No acute distress Eyes Bilateral: positive: Normal inspection, EOMI, No lid inflammation, Conjunctivae nml, No scleral icterus ENT: positive: No signs of dehydration Neck: positive: Thyroid nml, No JVD, Trachea midline Cardiovascular: positive: Regular rate & rhythm, No murmur, No gallop Respiratory: positive: Chest non-tender, No respiratory distress Abdomen: positive: Non-tender, Soft Skin: positive: No symptoms Extremities: positive: Non-tender, Nml appearance, No pedal edema Neurologic/Psychiatric: positive: Oriented x3, Motor nml, Sensation nml, Flat affect Palliative Care - POLST Patient has POLST: No Pain: Pain unchanged (chronic, she manages without pain meds) Tiredness/Fatigue: Mild (1-3) Drowsiness/Sedation: None Nausea: None Depression: None Dyspnea: Moderate (4-6) Anorexia: None Sleep: Sleeps well Constipation: No Performance Status: Current level of functioning: Palliative Care Performance Status: - Palliative Care Discussion: Who is present: Patient and myself Surrogate decision maker: None. In the past, she has mentioned her sister, and also her children. Patient/Family understanding of the illness: Does have insight and understanding of the seriousness of patients current condition. Information preferences: Most important goals: Patient concerns: Impression and Recommendations - Palliative Care Impression: This is a 66-year-old woman with severe end-stage COPD and pulmonary fibrosis whose functionality and respiratory status have not returned to baseline since s cholecystectomy in March 2017. She had a recent episode of sharp, extremely painful chest pain on09/02/17. Diagnostics completed at the ED did not reveal etiology but did conclude it was not cardiac in origin, and might have been from taking a dose of morphine on an empty stomach. After going to the ED with chest pain, she completely stopped using morphine, and has noticed her SOB has worsened. She may benefit from using morphine on a routine schedule to decrease her incidence of SOB. Recommendations/Counseling Done: Dyspnea: Agreed to trial routine morphine: morphine sulfate solution 100mg/ 5ml. Give 5mg (0.25ml) PO/buccally TID for shortness of breath. She has been unable to ambulate more than a few feet without resting, and she used to use the morphine only once a day. Since the ED visit, she has stopped using it, and SOB worsened. I dropped the script at [facility] and instructed them to deliver it to her home. Allergic rhinitis: Continue Fluticasone nasal spray 50mcg/spryy, 1 spray each nostril bid prn. Dropped at [facility]. COPD: Advair (fluticasone/salmeerol) inhale 1 puff bid for COPD. Droppe doff at [facility]. She has appointment with exterior interior specialist, Dr. Riggs, on 09/19. Advanced Care Planning: Has not spoken to any family member about naming a DPOA. Has not filled out POLST form. Will revisit. Follow up next week to confirm pharmacy delivered meds and whether patient is following the routine morphine usage. Time Spent: 45 minutes with greater than 50% of this done in counseling and coordination of care regarding SOB and symptom burden, and advanced care planning around designation of a DPOA and defining goals of care and filling out a POLST.
== END 2017-09-15 12:31 | disposition home or self-care (01) ==
LOC: PC 12:30
PROVIDERS: ATTEND Nurse Practitioner
DX: Z51.5 Encounter for palliative care (principal); J44.9 Chronic obstructive pulmonary disease, unspecified; J30.9 Allergic rhinitis, unspecified; J84.10 Pulmonary fibrosis, unspecified; Z99.81 Dependence on supplemental oxygen; Z79.891 Long term (current) use of opiate analgesic; Z90.49 Acquired absence of other specified parts of digestive tract
CPT/HCPCS: 99349

== ENCOUNTER 2017-11-24 12:35 | Outpatient (CLI) | payer MEDICARE, MEDICAID ==
--- NOTE | 2017-11-24 17:36 | CONSULTATION NOTE ---
Palliative Care Follow Up - Referral Referring Provider: DOMINGO Reyes Time of Visit: 11/24/2017 12:35 Referral setting: Home (Seen in home setting due totaxing and considerable effort required to leave the home secondary to severe end-stage COPD and pulmonary fibrosis, and inability to ambulate more than a few feet with the walker before needing to sit to to dyspnea. She is on 24-hour oxygen.) - Information Sources Records reviewed: Previous records reviewed History/Review of Systems obtained from: Patient Exam limitations: Clinical condition (breathlessness from pulmonary disease causes her to fatigue quickly when she speaks) - History of Present Illness Update Brief HPI Update: This is a shy and introverted 67-year-old female with severe end stage COPD and pulmonary fibrosis. She had a laparoscopic cholecystectomy in March 2017. She is being seen for long-term palliative care and care support related to her end- stage COPD. She finally made an appointment to see her dryer and washer mechanic about whether she could be a candidate for a lung transplant and had her [employer] caregiver driver salesman her there (to [place] [facility]). It turned out to be the wrong date, and she doesn't know how that happened. She assumes she wrote down the date incorrectly. She has not yet rescheduled because the [employer] caregiver can drive her a maximum of 50 miles over a certain time period, and she is undecided whether she will arrange another appointment. She has been skeptical and outwardly vascillating about following up on this issue, so it is quite unfortunate about the appointment mixup. She reported to me that last week when she used morphine she had "crushing" chest pain, and so she has not been using it since then. Prior to that, she used it a few times a day, and it does help with the SOB, she can feel it opening her airways. However, the "chest pain" bothers and even scares her. She says she hasn't had pain like that since the cholecystitis. She doesn't recall if it's a similar pain, but she says she doesn't have that pain when she eats. It happened only with the morphine. I have suggested starting a PPI to alleviate GERD symptoms and she agreed. Her other concern today is with the pharmacy not having delivered her albuterol solution for her nebulizer, which she uses 3-4 times daily. In fact, she uses it every time she gets up to move. She has been using the albuterol inhaler instead. I phone the pharmacy and instead of delivering it, they had it on the shelf for pickup, which she is unable to do. They corrected the mistake and assured me they will deliver it today. I followed up with the patient a few hours later, and she was told that they don't deliver albuterol, and that's always been the Medicaid rule, yet the patient has had albuterol delivered in the past. She had her [employer] caregiver pick it up for her. She also asked for a product to protect her nasal mucosa from the drying effects of O2. I telephone [facility] during our visit and left a message to call me back. Her BP is elevated at 170/78. It usually is high when I take it. Patient reports it's lower when she takes it, around 140 or lower, so this is elevation could be from "white coat" anxiety. Social History - Living Situation Living arrangement: At home Living Situation: Alone, With caregiver(s) (She has [employer] caregivers 3 hours for 5 days a week. [place] Medications/Allergies - Medications Home Medications: Ambulatory Orders Medication Instructions Recorded Confirmed Albuterol Sulfate [Proair Hfa 1 - 2 puffs INH Q4H PRN 08/31/16 09/15/17 Inhaler] Atorvastatin Calcium 20 mg PO QPM 08/31/16 09/15/17 Fluticasone/Salmeterol [Advair 1 puffs INH BID 08/31/16 09/15/17 250-50 Diskus] Valsartan [Diovan] 80 mg PO DAILY #30 tablet 08/31/16 09/15/17 Morphine Sulfate [Morphine Sulf 5 mg PO Q3H PRN 03/29/17 09/15/17 Oral (Roxanol)] Multivitamin 1 tab PO DAILY 06/06/17 09/15/17 Vit D3 2,000 unit PO DAILY 06/06/17 09/15/17 Fluticasone Propionate 1 spray IH BID PRN 09/15/17 09/15/17 Morphine Sulfate [Morphine Sulf 5 mg PO TID 09/15/17 09/15/17 Oral (Roxanol)] Ondansetron [Zofran Odt] 8 mg PO Q8HR PRN 09/15/17 09/15/17 - Allergies Allergies/Adverse Reactions: Allergies Allergy/AdvReac Type Severity Reaction Status Date / Time No Known Drug Allergies Allergy Verified 09/02/17 22:06 Review of Systems - Cardiovascular Cardiovascular: reports: Chest pain (last week, after taking a morphine dose: "crushing" chest pain), Exertional dyspnea, Decr. exercise tolerance - Respiratory Respiratory: reports: Sputum production, SOB at rest, SOB with exertion - Gastrointestinal Gastrointestinal: denies: Constipation, Change in bowel habits - Genitourinary Genitourinary: denies: Dysuria, Incontinence Physical Exam - Vital Signs Temperature: 98.0 F Pulse Rate: 102 O2 Saturation: 96 Blood Pressure: 170/78 ("white coat" HTN) - Physical Exam General Appearance: positive: No acute distress, Alert Eyes Bilateral: positive: EOMI, No lid inflammation, Conjunctivae nml, No scleral icterus ENT: positive: No signs of dehydration Neck: positive: Thyroid nml, No JVD, Trachea midline Cardiovascular: positive: Regular rate & rhythm, No murmur, No gallop Respiratory: positive: Chest non-tender, Diminished throughout (severe), Wheezes (inspiratory) Skin: negative: Cyanosis Extremities: positive: No pedal edema Neurologic/Psychiatric: positive: Oriented x3, Motor nml, Sensation nml, Flat affect Palliative Care - POLST Patient has POLST: No Pain: No pain Tiredness/Fatigue: None Drowsiness/Sedation: None Nausea: None Depression: None Anxiety: Mild (1-3) ("white coat") Constipation: No (started her on Miralax) Feelings of wellbeing/Perceived Quality of Life: Fair Performance Status: Unable to walk more than a few steps before needing to rest. She reports using the nebulizer every time she has to get up and move. So she doesn't move very often. She still performs her own ADLs, bathing, and going to the toilet. Doesn't require help with transfers. [employer] care givers shop and make meals for her. - Palliative Care Discussion: She talked to her son about being her DPOA, but he declined, not wanting the responsibility. So she will ask her sister. She doesn't know whether her sister will accept; the sister took care of everything when their parents . She has not filled out the POLST yet, which has been an on-going question for the entire period Palliative Care has been following her. I will revisit at each visit. She reports her quality of life as "fair," and says that she is discouraged that her kids still smoke, even though they know her condition and how her life and health currently is, all caused by smoking. (She smoked many years and quit in 2013). She feels she is getting worse. She is "always so tired," and states, "I don't want to go anywhere or do anything." She complained several times about her problems and hassles dealing with the pharmacy, and it is plain that dealing with logistical issues like the pharmacy, vernon the error with the pulmonolist scheduling error, is difficult for her, and likely is overwhelming. I followed up with her about whether her medications arrived, and the pharmacy had told her that they never deliver albuterol. She was able to obtain the albuterol nebulizer solution today, which was her main concern today. She is also looking at losing her [employer] caregiver for a few weeks while the person does a training course, and she is in touch with her industrial electrician to find a replacement. Impression and Recommendations - Palliative Care Impression: This is a quiet, introverted 67-year-old woman with severe end-stage COPD and pulmonary fibrosis whose functionality and health continue to decline. She has severe SOB and morphine helps, but she is reluctant to use it due to unwelcome gastric side effects. Her health status is fragile and she would medically qualify for Hospice but this is not matching her goals of care. Advanced planning is a challenge, and hopefully we are getting closer to having her assign a DPOA. She does not have a POLST. She will benefit from monthly oversight of Palliative Care and monitoring for eventual transition to Hospice. Recommendations/Counseling Done: Dyspnea: Chronic. She uses albuterol nebulizer every time she moves out of her recliner, about 3-4 times daily. Helped her resolve a pharmacy snafu today , and her [employer] caregiver helped too. She stopped using morphine last week due to "crushing chest pain," so I started omeprazole in case it's GI-related, and educated her about trying morphine again with a smaller dose, less than 0.25 mL. Provided education on dosing with the syringe. GERD: Start omeprazole 20mg daily. Allergic rhinitis: Stable, chronic. Continue fluticasone nasal spray. COPD: Continue Advair daily, continue albuterol inhaler for rescue medication. Continue lbuterol nebulizer TID-QID. She missed her dryer and washer mechanic consultation back in Aug or Sep because of a scheduling error. She is undecided whether she will schedule another appointment. Constipation: Started (restarted) her on Miralax, 1/4 to 1 capful daily, provided education on taking it daily and adjusting dosage as needed, as opposed to stopping if stools are loose. Advanced care planning: Still no POLST or DPOA, but she spoke with her son and learned he doesn't want to be DPOA. She says she will ask her sister, and she doesn't know whether she will accept. Follow up in 1-2 weeks: morphine, SOB. Time Spent: 45 minutes were spent with more than 50% of the time spent on counseling, education, and coordination of care regarding pharmacy, medications, oxygen supplies, lung disease, and advanced care planning.
== END 2017-11-24 12:36 | disposition home or self-care (01) ==
LOC: PC 12:35
PROVIDERS: ATTEND Nurse Practitioner
DX: Z51.5 Encounter for palliative care (principal); J44.9 Chronic obstructive pulmonary disease, unspecified; J84.10 Pulmonary fibrosis, unspecified; K21.9 Gastro-esophageal reflux disease without esophagitis; T40.2X5A Adverse effect of other opioids, initial encounter; J30.9 Allergic rhinitis, unspecified; K59.00 Constipation, unspecified; Z99.81 Dependence on supplemental oxygen; Z90.49 Acquired absence of other specified parts of digestive tract; Z87.891 Personal history of nicotine dependence
CPT/HCPCS: 99349

== ENCOUNTER 2017-12-29 16:26 | Outpatient (CLI) | payer MEDICARE, MEDICAID ==
--- NOTE | 2017-12-29 16:33 | CONSULTATION NOTE ---
Palliative Care Follow Up - Referral Referring Provider: DOMINGO Lizama Time of Visit: 12/29/2017. 13:20-13:50 Referral setting: Home (Seen in home setting due to taxing and considerable effort required to leave the home, secondary to severe end-stage COPD and pulmonary fibrosis, and inability to ambulate more than a few feet with a walker before needing to sit due to dyspnea. She is on 24-hour oxygen.) - History of Present Illness Update Brief HPI Update: This is a reserved and introverted 67-year-old female with severe end-stage COPD and pulmonary fibrosis. She had laparoscopic cholecystectomy in March 2017. She is being seen for long-term palliative care and care support related to her end-stage COPD. The patient is quite challenged with dealing with the health system and organizing her life. Last visit she had told me she finally made a pulmonary appointment only to go to the appointment and find out she was there on the wrong day. She had told me she had yet to make a new appointment, so I offered to call the office of the linux network administrator right then to make a new appointment, and she gladly accepted. When I did call them it turned out they already had a new appointment for her on January 16 at 3pm. The patient was not actually aware of or had forgotten this new appointment. While I was with her I made sure she entered this appointment into her calendar. She remarked that she really should write these things down. She does feel that her shortness of breath is getting worse. She has gone back to using the morphine about twice a day and does get some relief. She had stopped using it after having had a frightening experience of chest pain, but has had no further episodes, and is comfortable using morphine again. She really is quite short of breath and is only able to take a step or 2 before needing to sit down on her walker. She has a LAURA caregiver in the afternoons and is quite dependent on the support she provides. I had looked into a solution for the dryness in her nostrils due to 24 hour oxygen, and her oxygen supplier does provide a humidifier at no charge. The patient is interested in obtaining one and I will follow-up on that. Social History - Living Situation Living arrangement: At home Living Situation: Alone, With caregiver(s) (LAURA caregiver in the afternoons, 3 hours x 5 days. [place] Support System: She has a LAURA caregiver, and also [place] She has a sister she is considering asking to be her DPOA. She also has a daughter. Medications/Allergies - Medications Home Medications: Ambulatory Orders Medication Instructions Recorded Confirmed Albuterol Sulfate [Proair Hfa 1 - 2 puffs INH Q4H PRN 08/31/16 09/15/17 Inhaler] Atorvastatin Calcium 20 mg PO QPM 08/31/16 09/15/17 Fluticasone/Salmeterol [Advair 1 puffs INH BID 08/31/16 09/15/17 250-50 Diskus] Valsartan [Diovan] 80 mg PO DAILY #30 tablet 08/31/16 09/15/17 Morphine Sulfate [Morphine Sulf 5 mg PO Q3H PRN 03/29/17 09/15/17 Oral (Roxanol)] Multivitamin 1 tab PO DAILY 06/06/17 09/15/17 Vit D3 2,000 unit PO DAILY 06/06/17 09/15/17 Fluticasone Propionate 1 spray IH BID PRN 09/15/17 09/15/17 Morphine Sulfate [Morphine Sulf 5 mg PO TID 09/15/17 09/15/17 Oral (Roxanol)] Ondansetron [Zofran Odt] 8 mg PO Q8HR PRN 09/15/17 09/15/17 - Allergies Allergies/Adverse Reactions: Allergies Allergy/AdvReac Type Severity Reaction Status Date / Time No Known Drug Allergies Allergy Verified 09/02/17 22:06 Review of Systems - Constitutional Constitutional: reports: Weight stable. denies: Poor appetite - Ears, Nose & Throat Ears, Nose & Throat: reports: Postnasal drainage - Cardiovascular Cardiovascular: reports: Exertional dyspnea, Decr. exercise tolerance. denies: Chest pain, Edema - Respiratory Respiratory: reports: Wheezing, SOB at rest, SOB with exertion (worsening) - Genitourinary Genitourinary: denies: Dysuria, Incontinence - Psychiatric Psychiatric: denies: Behavior disturbances Physical Exam - Vital Signs Temperature: 98.0 F Pulse Rate: 101 O2 Saturation: 96 Blood Pressure: 140/88 - Physical Exam General Appearance: positive: No acute distress Eyes Bilateral: positive: EOMI, No lid inflammation, Conjunctivae nml, No scleral icterus ENT: positive: No signs of dehydration Neck: positive: Thyroid nml, No JVD, Trachea midline Cardiovascular: positive: Regular rate & rhythm Respiratory: positive: Diminished throughout, Wheezes (expiratory), Other ( accessory muscle usage). negative: No respiratory distress Skin: positive: No symptoms Neurologic/Psychiatric: positive: Oriented x3, Flat affect Palliative Care - POLST Patient has POLST: No Anorexia: Moderate (4-6) Sleep: Sleeps well Constipation: No Feelings of wellbeing/Perceived Quality of Life: Worsening (SOB) Performance Status: Unable to ambulate more than a few steps without sitting down to rest. - Palliative Care Discussion: She is still struggling with the concept of finding a DPOA, finding it in general difficult to think or speak about her future, anything about advanced care planning, and making the decisions necessary to complete a POLST. Her son has told her he does not want to be her DPOA, so her other choice is her sister. She is reluctant to ask her sister, feeling this would be a burden on her since the sister has already had told other family members legal matters of end-of-life. So as it stands the patient has not spoken to her family about this and she has also refused my offer to facilitate a family conference. She says her son does not approve of his sister's life choices, and so it is difficult to get the two of them together in order to talk about it. She doesn' t feel an outside person's presence would be helpful. This is likely a combination of her personal and cultural makeup and it is an extremely difficult subject for her to deal with. Impression and Recommendations - Palliative Care Impression: This is a quiet and introverted 67-year-old woman with severe end-stage COPD and pulmonary fibrosis, who is on a slow steady decline, with worsening shortness of breath. She has not participated in in advanced care planning nor signed the POA nor signed a post inconsistently shows reluctance and has reasons for not doing so. This is likely due to both personal and cultural reasons. She will continue to benefit from monthly oversight and support of palliative care, and monitoring for eventual transition to hospice. Recommendations/Counseling Done: Dyspnea: Chronic, worsening, continue albuterol nebulizer, Advair, morphine about twice a day, and 24-hour oxygen. We will follow-up with oxygen supplier for a humidifier for her dry skin in the nostrils. Allergic rhinitis: chronic, continue fluticasone nasal spray. End-stage COPD: Has pulmonology consultation on January 16. Continue albuterol inhaler and albuterol nebulizer. Constipation: Continue MiraLAX. Advanced care planning: no POLST, no DPOA, no family family conference scheduled. Personality and cultural barriers persist. Continue to offer palliative care monitoring, support and encouragement. Follow-up monthly. Time Spent: 30 minutes were spent with more than 50% of the time spent on counseling, education, and coordination of care.
== END 2017-12-29 16:27 | disposition home or self-care (01) ==
LOC: PC 16:26
PROVIDERS: ATTEND Nurse Practitioner
DX: Z51.5 Encounter for palliative care (principal); R06.00 Dyspnea, unspecified; J30.9 Allergic rhinitis, unspecified; J44.9 Chronic obstructive pulmonary disease, unspecified; K59.00 Constipation, unspecified; J84.10 Pulmonary fibrosis, unspecified; I27.20 Pulmonary hypertension, unspecified; M85.80 Other specified disorders of bone density and structure, unspecified site; E55.9 Vitamin D deficiency, unspecified; Z99.81 Dependence on supplemental oxygen; Z79.891 Long term (current) use of opiate analgesic; Z79.51 Long term (current) use of inhaled steroids
CPT/HCPCS: 99348

== ENCOUNTER 2018-03-01 13:15 | Outpatient (CLI) | payer MEDICARE, MEDICAID ==
--- NOTE | 2018-03-01 16:39 | CONSULTATION NOTE ---
Palliative Care Follow Up - Referral Referring Provider: Kirti LANE Time of Visit: 03/01/2018. 13:15 - 13:50 Referral setting: Home (Seen in home setting due to taxing and considerable effort required to leave the home due to significant breathlessness secondary end stage COPD, pulmonry fibrosis, and inability to ambulate more than a few feet with a walker before needing to sit. She is on 24-hour oxygen.) Referral Reason: SOB r/t end-stage COPD, pulmonary fibrosis / Pall Care - Information Sources Records reviewed: Previous records reviewed History/Review of Systems obtained from: Patient Exam limitations: Clinical condition (fatigues easily while speaking, due to breathlessness from advanced pulmonary disease.) - History of Present Illness Update Brief HPI Update: -This is a reserved and introverted 67-year-old woman with severe end-stage COPD and pulmonary fibrosis. -The patient is quite challenged with dealing with the health system and organizing her life. -She reports finally making it to the transmission tester, Dr. Riggs for a December appointment. -Dr. Velasquez told her she could be a candidate for lung transplant or reduction. -Patient was to call his office back in 2 weeks, his patient support assistant was going to contact the [facility] about testing. -The patient reports having no success getting through to talk to someone at the pulmonology clinic, and they have not returned her voicemails. -I telephoned the clinic during this visit and got to the medical assistance voicemail and left a message. -Patient reports she spoke with her sister about being DPOA, and the sister has agreed. -I supplied the patient with a new DURABLE POWER OF BICYCLE REPAIRER medical form and explained how to use it. -I inquired about the POLST, which we have discussed numerous times in the past. -She did not want to speak about it today. -Patient feels her shortness of breath continues to deteriorate. - O2 jus are 98% on 3L O2, drop to 93% on 3L O2 after exertion (standing and moving a few feet, then sitting down) -She uses morphine only about once a day. I believe it's less than that -- she did not need a prescription refill today. -She uses morphine only when she thinks she will need it because of additional exertion. Social History - Living Situation Living arrangement: At home Living Situation: Alone (Patient has a LAURA caregiver for several hours every afternoon. Her sister has agreed to be her DPOA[place] She has a daughter and the dynamics are complicated.) Medications/Allergies - Medications Home Medications: Ambulatory Orders Medication Instructions Recorded Confirmed Albuterol Sulfate [Proair Hfa 1 - 2 puffs INH Q4H PRN 08/31/16 03/01/18 Inhaler] Atorvastatin Calcium 20 mg PO QPM 08/31/16 03/01/18 Fluticasone/Salmeterol [Advair 1 puffs INH BID 08/31/16 03/01/18 250-50 Diskus] Valsartan [Diovan] 80 mg PO DAILY #30 tablet 08/31/16 03/01/18 Morphine Sulfate [Morphine Sulf 5 mg PO Q3H PRN 03/29/17 03/01/18 Oral (Roxanol)] Multivitamin 1 tab PO DAILY 06/06/17 03/01/18 Vit D3 2,000 unit PO DAILY 06/06/17 03/01/18 Fluticasone Propionate 1 spray IH BID PRN 09/15/17 03/01/18 Ondansetron [Zofran Odt] 8 mg PO Q8HR PRN 09/15/17 03/01/18 - Allergies Allergies/Adverse Reactions: Allergies Allergy/AdvReac Type Severity Reaction Status Date / Time No Known Drug Allergies Allergy Verified 09/02/17 22:06 Review of Systems - Constitutional Constitutional: reports: Weight stable. denies: Poor appetite - Ears, Nose & Throat Ears, Nose & Throat: reports: Postnasal drainage - Cardiovascular Cardiovascular: reports: Exertional dyspnea, Decr. exercise tolerance. denies: Palpitations, Chest pain, Edema - Respiratory Respiratory: reports: Wheezing, SOB at rest, SOB with exertion. denies: Cough - Gastrointestinal Gastrointestinal: denies: Constipation, Change in bowel habits - Genitourinary Genitourinary: denies: Dysuria - Musculoskeletal Musculoskeletal: reports: Other (Non-painful, fibrotic areas in her L palm) Physical Exam - Vital Signs Temperature: 95.9 F Pulse Rate: 108 O2 Saturation: 98 (on 3L) Blood Pressure: 160/70 - Physical Exam General Appearance: positive: No acute distress, Alert Eyes Bilateral: positive: EOMI, No lid inflammation, Conjunctivae nml, No scleral icterus ENT: positive: No signs of dehydration Neck: positive: No JVD, Trachea midline Cardiovascular: positive: Regular rate & rhythm, No murmur Respiratory: positive: Chest non-tender, Diminished throughout (Severely), Wheezes (Inspiratory), Other (visible breathing effort; she carefully calibrates her breaths and becomes quickly fatigued and ADALID with speaking.) Skin: positive: No symptoms Extremities: positive: No pedal edema Neurologic/Psychiatric: positive: Oriented x3, Flat affect Palliative Care - POLST Patient has POLST: No Pain: No pain Dyspnea: Severe (7-10), Comment (worsening SOB. Still does not use morphine very often) - Palliative Care Discussion: The patient's sister agreed to be her medical DPOA, a big step forward. She has not signed the paperwork, so I provided a form for her, and educated her on completing it and that I would copy it once signed. Unfortunately, the patient did not want to discuss the POLST form today, but at least the issue of having a DPOA may have moved forward. It has been challenging to speak of any goals of care or end of life issues with the patient, likely due to a combination of cultural and personality issues. She did say today that she would not want to be "kept alive as a vegetable." I did encourage her to speak about these wishes and thoughts with her sister so at least one family member would be able to speak on her behalf. Impression and Recommendations - Palliative Care Impression: This is a quiet and introverted 67-year-old woman with severe end-stage COPD and pulmonary fibrosis. She is slowly and steadily declining and experiencing worsening shortness of breath. She had a consultation with the transmission tester in December, and has been trying since then to follow up with his clinic for further direction. So far her efforts have been unsuccessful. Palliative care will continue to provide oversight, monitoring, and support for helping her move forward on her goals of care. The patient does not have a signed POLST, and this has been an ongoing concern. However today she indicated her sister is willing to be her DPOA, a positive development. Recommendations/Counseling Done: Dyspnea: Worsening. Continue Advair and morphine. She is not using the morphine very frequently, to runner man from her refill history. Continue albuterol inhaler and albuterol nebulizer as needed. [employer] sent her some supplies for humidifying her oxygen supply, but some parts appear to be missing , including instructions. I tried to phone the company and was unable to get through. Can follow up at next visit. She did get the ointment to moisturize her nostrils. Allergic rhinitis: Chronic, continue fluticasone nasal spray. End Stage COPD: She finally got to the pulmonlogy appointment in December. She has been trying to get the next steps from the pulmonlogist's office, They had told her they would arrange testing with the . She has had no luck in getting them to return calls. I left a voicemail today with the clinic, will follow up next week. Advanced care planning: She asked her sister to be DPOA and she agreed. Supplied the patient with a new medical DPOA form. The patient was not ready to talk about POLST form today, but her having spoken with her sister about being DPOA was a significant step forward. Follow up with her at the next visit. Follow up every 4-6 weeks. Follow up with pulmonology clinic (Dr Riggs, ) about [facility] testing: Time Spent: 35 minutes were spent with more than 50% of the time spent on counseling, education, and coordination of care.
== END 2018-03-01 13:16 | disposition home or self-care (01) ==
LOC: PC 13:15
PROVIDERS: ATTEND Nurse Practitioner
DX: Z51.5 Encounter for palliative care (principal); J44.9 Chronic obstructive pulmonary disease, unspecified; J30.9 Allergic rhinitis, unspecified; J84.10 Pulmonary fibrosis, unspecified; Z99.81 Dependence on supplemental oxygen; Z79.891 Long term (current) use of opiate analgesic; Z79.51 Long term (current) use of inhaled steroids
CPT/HCPCS: 99348

== ENCOUNTER 2018-04-11 12:10 | Outpatient (CLI) | payer MEDICARE, MEDICAID ==
--- NOTE | 2018-04-11 15:53 | CONSULTATION NOTE ---
Palliative Care Follow Up - Referral Referring Provider: DOMINGO Reyes Time of Visit: 04/11/2018. 12:10 - 13:00 Referral setting: Home (Seen in home setting due to taxing and considerable effort required to leave the home due to significant breathlessness secondary to end stage COPD, pulmonary fibrosis, and inability to ambulate more than a few feet with a walker before needing to sit. She is on 24-hour oxygen.) Referral Reason: Chronic SOA - Information Sources Records reviewed: Previous records reviewed History/Review of Systems obtained from: Family (Seen in home setting due to taxing and considerable effort required to leave the home due to significant breathlessness secondary to end-stage COPD, pulmonary fibrosis. She is unable to ambulate more than a few feet with a walker before needing to sit and rest. She is on 24-hour oxygen.) Exam limitations: Clinical condition (fatigues easily while speaking due to breathlessness) - History of Present Illness Update Brief HPI Update: -A reserved and introverted 67-year-old woman with severe end-stage COPD and pulmonary fibrosis. -The patient reports the office of Dr. Riggs never contacted her, or returned her calls or my message. He was to have followed up with the [facility] regarding further testing. -[place] [facility] [place] She is internal medicine/pulmonary disease [phone]. -She has an appointment for December 12, 2018 at 1 PM, and is on wait list for an earlier appointment. -[facility] services helped her make the appointment with this new physician. -Patient requested help getting nebulizer supplies through [email or web address], previously she has been buying them herself at the drugstore. This is very taxing and considerable effort since she no longer drives and very rarely leaves the house due to her significant disease. -Patient reports her shortness of air stable, at baseline -- ie, poor. -She uses morphiner rarely and reports not needing a refill a present. -She has no complaints today apart from allergic rhinitis due to the season. Social History - Living Situation Living arrangement: At home Living Situation: Alone Support System: Family is not very close. Her son lives on the [place]. She has heard her sister lives in [place]. She has a LAURA caregiver daily in the afternoon. Medications/Allergies - Medications Home Medications: Ambulatory Orders Medication Instructions Recorded Confirmed Albuterol Sulfate [Proair Hfa 1 - 2 puffs INH Q4H PRN 08/31/16 04/11/18 Inhaler] Atorvastatin Calcium 20 mg PO QPM 08/31/16 04/11/18 Fluticasone/Salmeterol [Advair 1 puffs INH BID 08/31/16 04/11/18 250-50 Diskus] Valsartan [Diovan] 80 mg PO DAILY #30 tablet 08/31/16 04/11/18 Morphine Sulfate [Morphine Sulf 5 mg PO Q3H PRN 03/29/17 04/11/18 Oral (Roxanol)] Multivitamin 1 tab PO DAILY 06/06/17 04/11/18 Vit D3 2,000 unit PO DAILY 06/06/17 04/11/18 Fluticasone Propionate 1 spray IH BID PRN 09/15/17 04/11/18 Ondansetron [Zofran Odt] 8 mg PO Q8HR PRN 09/15/17 04/11/18 Loratadine 10 mg PO DAILY PRN MDD 1 capsule 04/11/18 04/11/18 - Allergies Allergies/Adverse Reactions: Allergies Allergy/AdvReac Type Severity Reaction Status Date / Time No Known Drug Allergies Allergy Verified 09/02/17 22:06 Review of Systems - Constitutional Constitutional: reports: Weakness, Weight stable. denies: Poor appetite - Ears, Nose & Throat Ears, Nose & Throat: reports: Postnasal drainage - Cardiovascular Cardiovascular: reports: Exertional dyspnea, Decr. exercise tolerance. denies: Palpitations, Chest pain - Respiratory Respiratory: reports: SOB at rest, SOB with exertion. denies: Cough, Wheezing - Gastrointestinal Gastrointestinal: reports: Good appetite. denies: Constipation - Genitourinary Genitourinary: denies: Dysuria, Incontinence Physical Exam - Vital Signs Temperature: 97.5 F Pulse Rate: 97 O2 Saturation: 93 (3L O2) Blood Pressure: 155/70 - Physical Exam General Appearance: positive: No acute distress, Alert Eyes Bilateral: positive: EOMI, No lid inflammation, Conjunctivae nml, No scleral icterus ENT: positive: No signs of dehydration Neck: positive: No JVD, Trachea midline Cardiovascular: positive: Regular rate & rhythm, No murmur, No gallop Respiratory: positive: Diminished throughout (worse on R side - no air sounds mid-lobe), Other (accessory muscle usage for respiration) Abdomen: positive: Soft. negative: Guarding Skin: positive: No symptoms Extremities: positive: Pedal edema (mild) Neurologic/Psychiatric: positive: Oriented x3, Flat affect Palliative Care - POLST Patient has POLST: No Dyspnea: Moderate (4-6) Anorexia: None Sleep: Sleeps well - Palliative Care Discussion: No progress on DPOA forms being filled out and signed. She has chosen her sister but has not spoken to nor seen her. She understandsd she is full code, and would be intubated if indicated. She is in agreement with that. Her understanding of the ramifications of a DPOA, or lack of one, is unclear. She is consistent in resisting discussions of goals of care. Her needs are more immediate, such as obtaining supplies and help with medical appointments. I spoke with [employer] at the patient's request and will fax the request for nebulizer supplies. Impression and Recommendations - Palliative Care Impression: A quiet and introverted 67-year-old woman with severe end-stage COPD and pulmonary fibrosis. She has been stable within a context of slow, steady decline in respiratory status.She is pursuing a pulmonary consultation with Dr Kim Mishra of [facility]. Dr. Riggs's office did not return her calls or my message. Palliative care will continue to monitor and support her with transition to hospice when indicated. Recommendations/Counseling Done: Dyspnea: Poor but stable, at baseline.Controlled Advair, albuterol inhaler and albuterol nebulizer regularly. 3L O2 24/7. I will fax order to [employer] for nebulizer supplies (mouth piece and bowl). End stage COPD and pulmonary fibrosis: Dr Martin did not return calls. Patient has made an appointment with Dr Kim Mishra of [facility], but it's December 12, 2018 at 1pm. She is on waitlist for earlier appointment. Allergic rhinitis: Continue fluticasone nasal spray. Start loratadine 10mg daily as needed. Left script with patient. Advanced care planning: No POLST, no DPOA assigned, but she has chosen her sister, who lives [place]. They are not in contact often. Difficult to determine if patient understands ramifications of not having a DPOA, she is extremely resistant to discussion of end of life or future planning. Follow up 4-6 weeks. Time Spent: 50 minutes were spent with more than 50% of the time spent on counseling, education, and coordination of care.
== END 2018-04-11 12:11 | disposition home or self-care (01) ==
LOC: PC 12:10
PROVIDERS: ATTEND Nurse Practitioner
DX: Z51.5 Encounter for palliative care (principal); J44.9 Chronic obstructive pulmonary disease, unspecified; J84.10 Pulmonary fibrosis, unspecified; J30.9 Allergic rhinitis, unspecified; Z99.81 Dependence on supplemental oxygen; Z79.51 Long term (current) use of inhaled steroids; Z79.899 Other long term (current) drug therapy
CPT/HCPCS: 99349

== ENCOUNTER 2018-04-21 05:58 | Outpatient (CLI) | payer MEDICARE, MEDICAID | END 2018-04-21 05:59 | disposition critical access hospital (66) | LOC: EMS 05:58 | PROVIDERS: ATTEND Surgery | DX: R06.02 Shortness of breath (principal) | CPT/HCPCS: A0425; A0427 ==

== ENCOUNTER 2018-04-21 06:18 | Inpatient (IN) | payer MEDICARE, MEDICAID ==
[2018-04-21] MEDS ORDERED: IPRATROPIUM/ALBUTEROL 3 ML NEB INH STA (06:26)
[2018-04-21] MEDS ORDERED: DEXAMETHASONE 10 MG/ML VIAL PO STA (07:15)
[2018-04-21] MEDS ORDERED: ALBUTEROL NEB 2.5 MG/3 ML INH STA (07:15)
--- NOTE | 2018-04-21 07:18 | ED Physician Documentation ---
History of Present Illness - Stated complaint Stated Complaint: SOA - Chief complaint Chief Complaint: Resp - Additonal information Additional information: hx from pt 68 female known COPD home O2 dependent nurmerous prior admits not intubated COPD exac thinks triggered by seasonal allergies - has watery eyes runny nose etc no fever minimal cough but productive of purulent sputum no pain no travel no fever no hx CHF or leg swelling has used neb X at least five and MDI as well not on steroids right now Review of Systems Constitutional: denies: Fever, Chills Eyes: reports: Other (water) Nose: reports: Rhinorrhea / runny nose Respiratory: reports: Dyspnea, Cough, Wheezing GI: denies: Vomiting, Diarrhea Musculoskeletal: denies: Extremity swelling Endocrine: denies: Easy bruising / bleeding Immunocompromised: denies: Immunocompromised PD PAST MEDICAL HISTORY - Past Medical History Past Medical History: Yes Cardiovascular: Hypertension Respiratory: COPD, Other Endocrine/Autoimmune: None GI: Cholelithiasis : None HEENT: None Psych: Anxiety Musculoskeletal: Osteoarthritis Derm: None - Past Surgical History Past Surgical History: No General: Cholecystectomy HEENT: Tonsil/Adenoidectomy - Present Medications Home Medications: Ambulatory Orders Medication Instructions Recorded Confirmed Albuterol Sulfate [Proair Hfa 1 - 2 puffs INH Q4H PRN 08/31/16 04/21/18 Inhaler] Atorvastatin Calcium 20 mg PO QPM 08/31/16 04/21/18 Cholecalciferol (Vitamin D3) 2,000 unit PO DAILY #0 06/06/17 04/21/18 [Vitamin D] Multivitamin [Theragran] 1 each PO DAILY #0 06/06/17 04/21/18 Fluticasone Propionate 1 spray PAULINE BID PRN 09/15/17 04/21/18 Ondansetron [Zofran Odt] 8 mg PO Q8HR PRN 09/15/17 04/21/18 Loratadine 10 mg PO DAILY PRN MDD 1 capsule 04/11/18 04/21/18 Albuterol 2.5 mg INH Q4H PRN 04/21/18 04/21/18 Fluticasone/Salmeterol [Advair 1 puffs INH BID 04/21/18 04/21/18 500-50 Diskus] Tiotropium [place] [Spiriva 2 puffs INH DAILY 04/21/18 04/21/18 Respimat] Valsartan [Diovan] 80 mg PO DAILY 04/21/18 04/21/18 - Allergies Allergies/Adverse Reactions: Allergies Allergy/AdvReac Type Severity Reaction Status Date / Time No Known Drug Allergies Allergy Verified 04/21/18 06:23 - Social History Does the pt smoke?: No Smoking Status: Former smoker Does the pt drink ETOH?: Yes ETOH Use: Beer Does the pt have substance abuse?: No - Immunizations Immunizations are current?: No Immunizations: TDAP >10years/unknown - POLST Patient has POLST: No POLST Status: Full Code PD ED PE NORMAL - Vitals Vital signs reviewed: Yes - General General: Alert and oriented X 3 - Cardiac Cardiac: RRR - Respiratory Respiratory: No respiratory distress, Other (tight monae) - Abdomen Abdomen: Soft, Non tender - Derm Derm: Normal color - Extremities Extremities: No edema, No calf tenderness / cord - Neuro Neuro: Alert and oriented X 3 Results - Vitals Vitals: Vital Signs - 24 hr 04/21/18 04/21/18 04/21/18 06:17 06:29 06:33 Temperature 36.9 C Heart Rate 120 H 118 H 112 H Respiratory 22 24 19 Rate Blood Pressure 166/113 H 175/84 H O2 Saturation 95 96 04/21/18 04/21/18 04/21/18 07:42 08:40 08:51 Temperature Heart Rate 103 H 110 H 97 Respiratory 18 18 20 Rate Blood Pressure 145/68 H O2 Saturation 100 Oxygen O2 Source Nasal cannula Oxygen Flow Rate 4 - EKG (time done) 0624 Rate: Rate (enter#) (113) Rhythm: Sinus tachycardia Intervals: Normal ND. No: Prolonged QT Ischemia: Non specific changes - Labs Labs: Laboratory Tests 04/21/18 04/21/18 08:22 08:22 WBC 9.2 RBC 3.77 L Hgb 11.9 L Hct 35.1 L MCV 93.0 MCH 31.7 H MCHC 34.0 RDW 13.8 Plt Count 296 MPV 5.7 L Neut # (Auto) 6.8 H Lymph # (Auto) 1.5 [place] # (Auto) 0.7 Eos # (Auto) 0.1 Baso # (Auto) 0.0 Absolute Nucleated RBC 0.00 Nucleated RBC % 0.0 Sodium 128 L Potassium 3.8 Chloride 88 L Carbon Dioxide 30 Anion Gap 10.0 BUN 6 Creatinine 0.5 Estimated GFR (MDRD) 123 Glucose 114 H Calcium 8.3 L - Rads (name of study) CXR Radiology: See rad report (no infiltrate, spiculated mass rec CT) CT Radiology: See rad report (multiple nodules concerning for malignancy) PD MEDICAL DECISION MAKING - ED course ED course: despite approx 5 nebs/MDI at home, duoneb en route, albuterol X 3, xopenex X 3, decadron and mag pt still labored speaking 1-2 words, tight and wheezy spoke to hospitalist at 1035 - advises obs status CT shows numerous nodules concerning for malignancy rec bx - pt and family advised Departure - Departure Disposition: ED Place in Observation Clinical Impression: Severe chronic obstructive pulmonary disease, Abnormal chest CT Discharge Date/Time: 04/21/18 12:03
[2018-04-21] MEDS ORDERED: LEVALBUTEROL 1.25 MG/3 ML NEB INH STA (08:09)
[2018-04-21] MEDS ORDERED: MAGNESIUM SULFATE 2 GRAM 2 GM/50 ML BAG IV ONE (08:09)
[2018-04-21 08:28] LABS: BASOPHILS % (AUTO) 0.4 %; EOSINOPHILS # (AUTO) 0.1 10^3/uL (0.0-0.7); EOSINOPHILS % (AUTO) 1.6 %; HGB - HEMOGLOBIN 11.9 g/dL (12.0-16.0); LYMPHOCYTES # (AUTO) 1.5 10^3/uL (1.5-3.5); LYMPHOCYTES % (AUTO) 15.9 %; MEAN CORPUSCULAR HEMOGLOBIN 31.7 pg (27.0-31.0); MEAN PLATELET VOLUME 5.7 fL (7.9-10.8); MONOCYTES # (AUTO) 0.7 10^3/uL (0.0-1.0); MONOCYTES % (AUTO) 7.7 %; NEUTROPHILS # (AUTO) 6.8 10^3/uL (1.5-6.6); NEUTROPHILS % (AUTO) 74.4 %; PLT - PLATELET COUNT 296 10^3/uL (130-450); RED BLOOD COUNT 3.77 10^6/uL (4.20-5.40); RED CELL DISTRIBUTION WIDTH 13.8 % (12.0-15.0); WHITE BLOOD COUNT 9.2 x10^3/uL (4.8-10.8)
[2018-04-21 08:53] LABS: CALCIUM 8.3 mg/dL (8.5-10.3); CREATININE 0.5 mg/dL (0.4-1.0)
--- NOTE | 2018-04-21 09:04 | XRAY Report ---
EXAM: CHEST RADIOGRAPHY EXAM DATE: 04/21/2018 08:36 AM. CLINICAL HISTORY: Cough. Shortness of breath. COPD and is oxygen dependent. COMPARISON: 09/02/2017. TECHNIQUE: 2 views. FINDINGS: Lungs/Pleura: Hyperlucent lungs, particularly in the upper lobes, compatible with emphysema. There is a nodular opacity in the right lateral upper lobe measuring 2 cm with associated spiculations. No pn eumothorax. No pleural effusions. Mediastinum: Heart and mediastinal contours are unremarkable. Aortic calcifications are compatible wi th atherosclerotic disease Other: Mild degenerative changes within the spine. Deformity of the left fifth rib compatible with pr ior injury. IMPRESSION: 1. Nodular opacity measuring 2 cm in the right lateral upper lobe with associated spiculations. It is possible this is a mass or scarring from emphysema. CT scan is recommended for further evaluation. 2. No acute airspace process. RAD[facility] The above findings were discussed with Maria Luz Garcia by Dr. Marilyn Peralta at 09:01 hrs on 04/21/18. Referring Provider Line: [phone] SITE ID: [id number]
[2018-04-21] MEDS ORDERED: IOPAMIDOL-300 100 ML VIAL IVP ONE (09:17)
[2018-04-21] MEDS ORDERED: IOPAMIDOL-300 100 ML VIAL ONE (09:18)
--- NOTE | 2018-04-21 10:27 | CT Preliminary Report ---
Exam: CT CHEST W/ IMPRESSION: Multiple new pulmonary nodules, concerning for malignancy. Appropriate clinical workup should be done . Consider PET/CT evaluation of the new right upper lobe nodule. Findings are superimposed on severe upper lobe emphysema. RADIA SITE ID: [id number]
--- NOTE | 2018-04-21 10:27 | CT Report ---
EXAM: CT CHEST EXAM DATE: 04/21/2018 09:46 AM. CLINICAL HISTORY: Copd, CXR shows mass, rad rec CT with con. COMPARISONS: Chest radiograph from 04/21/[address] chest from 03/30/2011. TECHNIQUE: Routine helical CT imaging was performed through the chest. IV contrast: 80 mL Isovue-300. Reconstructions: Coronal and sagittal. In accordance with CT protocol optimization, one or more of the following dose reduction techniques w ere utilized for this exam: automated exposure control, adjustment of mA and/or KV based on patient s ize, or use of iterative reconstructive technique. FINDINGS: Lungs/Pleura: -There is severe upper lobe emphysema with multifocal scarring. -There is a new anterior right upper lobe somewhat irregular nodularity measuring 1.6 x 2.3 cm. This is equivocal regarding malignancy. Follow-up with PET/CT is recommended to better assess. -New rectangular 5 x 10 mm nodularity seen at the right lower lobe laterally, image #47 of series 4. -New 4 mm nodule seen at the left lower lobe posteriorly, image #29 of series 4. -New somewhat patchy 8mm nodularity seen at the lingula, image #41 of series 4. -Questionable new 3 mm nodule at the medial aspect of the right middle lobe, image #41 of series 4. -Probable new 3 mm nodule of the mid aspect of the right middle lobe, image #46 of series 4. No pleural effusion. Mediastinum: Mild pretracheal and para-aortic lymph node prominence, similar to previous. No yang mediastinal lym phadenopathy. Normal size heart. Bones: No significant skeletal abnormality. Visualized Abdomen: Status post cholecystectomy. Otherwise unremarkable. Other: None. IMPRESSION: Multiple new pulmonary nodules, concerning for malignancy. Appropriate clinical workup should be done . Consider PET/CT evaluation of the new right upper lobe nodule. Findings are superimposed on severe upper lobe emphysema. RAD[facility] Referring Provider Line: [phone] SITE ID: [id number]
[2018-04-21] MEDS ORDERED: ACETAMINOPHEN 325 MG TABLET PO PRN (10:36)
[2018-04-21] MEDS ORDERED: ONDANSETRON ODT 4 MG TABLET TL PRN (10:36)
[2018-04-21] MEDS ORDERED: ONDANSETRON 4 MG/2 ML VIAL IVP PRN (10:36)
--- NOTE | 2018-04-21 10:47 | HISTORY & PHYSICAL EXAMINATION ---
Chief Complaint - Chief Complaint Chief Complaint: Severe shortness of breath in a patient who has end-stage lung disease History of Present Illness - Admitted From Admitted From:: Home/emergency room - History Obtained From Records Reviewed: [facility] History obtained from: Patient and [employer] Exam Limitations: Patient shortness of breath - History of Present Illness HPI Comment/Other: The patient is a female who has end-stage lung disease. She is followed by a steamer blocker and has recently changed steamer blocker. Because of her end-stage lung disease she is hoping to get a lung transplant. She started smoking at the age of 17 and smoked 1 pack per day until approximately 2007. In reviewing her medical records through [facility], she is a shy, introverted person. Has difficulty broaching difficult topics. She has had palliative care consultation with Ellie garciaand Nalini Dejesus. She still has yet to fill out a pulsed form, but has managed to designate her sister Angie as her power of deputy attorney general at [phone]. She says that she has been compliant with her medications. However, some of her medications that are on her list have not been filled in over a year at the pharmacy. She is vague about why that is. She does do her long-acting bronchodilator, inhaled steroid, rescue inhaler on a regular basis. She is basically homebound. She last left her house weeks ago. This is because of severe effort required to just move from a sitting to standing position much less being able to walk out of the house to get into her car. The last time she saw her steamer blocker 1 or 2 months ago her baseline O2 at rest was increased from 2 L a minute to 3 L a minute because of hypoxia. She gets a jonathan care provider 5 hours a day for 5 days out of the week. That jonathan provider is her only way of surviving in that that is how she gets her laundry done, housekeeping done, grocery shopping, doctor visits, bathing done etc. In the last few days she has been having increasing shortness of breath at rest. It does not matter what she does she cannot get her breath. Usually if she sits down, increases her oxygen and does not nebulizer treatment she will have some relief enough to let her get by. For the last few days as not working. She has been practicing her purse lip breathing. She does not have fever, chills, congestion. There is been no change in the color of her phlegm. There have been no visitors to give her a cold. She finally came to the emergency room and was evaluated by Dr. Wyman. This is after she received treatment with EMS. This patient is still clearly in respiratory distress with pursed lip breathing even after steroids, antibiotics , and nebulizers in the emergency room. She is now admitted for COPD exacerbation. History - Past Medical History Cardiovascular: reports: Hypertension Respiratory: reports: COPD, Other Endocrine/Autoimmune: reports: None GI: reports: Cholelithiasis BODY MAKER: reports: Other () : reports: Incontinence HEENT: reports: None Psych: reports: Anxiety Musculoskeletal: reports: Osteoarthritis (Especially her hands) Derm: reports: None MRSA Hx?: No - Past Surgical History General: reports: Cholecystectomy HEENT: reports: Tonsil/Adenoidectomy - Family & Social History Family History Comment/Other: Both of her mother and father in the late 60s early 70s. Mom smoked up until her and she of COPD complications. Dad also of COPD. She has 4 brothers and one sister. All of them live in [place] except except one who lives in the [facility]. She says that no one has diabetes, hypertension, heart disease, or emphysema. Of 3 children her youngest daughter with killed or under suspicious circumstances. Her other 2 children are healthy. Living arrangement: At home Living Situation: With caregiver(s) (COPE worker comes by every day except Monday and Monday), Other (Her children [place] in [place] and they visit anywhere from once a week to once a month. She relies in her COPE' S caregiver for everything. Her children are more social and family support than actual logistical support.) Social History Notes: Patient is a woman who lives alone in [place]. She was born in [place] and is retired. She has two children. The patient has lived on [facility] since 1983. Prior to that she lived in the [facility]. The patient has a daughter and son both of whom live on [facility]. The patient quit smoking Around 2007 but smoked 1 pack a day for over 50 years Starting at the age of 17. The patient does drink 1 beer a night. In the past she has done marijuana. When she was to her first he was a cocaine addict and she tried cocaine a few times but she never used it on a regular basis. She has not used it since her 20s.She has a Jonathan worker that comes by every day except Monday and Monday. But the jonathan worker is only a few hours a day. Because of excessive breathlessness, end-stage lung disease, she has become homebound over the last year - Substance History Use: Uses substance without health or social issues: NONE (Quit smoking but previously smoked 1PPD for over 50 years), Alcohol (1 beer a night) Abuse: Recurrent use of substance despite neg consequences: NONE Dependence: Experiences withdrawal or developed tolerances: NONE - POLST Patient has POLST: No POLST Status: Full Code Meds/Allgy - Home Medications Home Medications: Ambulatory Orders Medication Instructions Recorded Confirmed Albuterol Sulfate [Proair Hfa 1 - 2 puffs INH Q4H PRN 08/31/16 04/21/18 Inhaler] Atorvastatin Calcium 20 mg PO QPM 08/31/16 04/21/18 Cholecalciferol (Vitamin D3) 2,000 unit PO DAILY #0 06/06/17 04/21/18 [Vitamin D] Multivitamin [Theragran] 1 each PO DAILY #0 06/06/17 04/21/18 Fluticasone Propionate 1 spray PAULINE BID PRN 09/15/17 04/21/18 Ondansetron [Zofran Odt] 8 mg PO Q8HR PRN 09/15/17 04/21/18 Loratadine 10 mg PO DAILY PRN MDD 1 capsule 04/11/18 04/21/18 Albuterol 2.5 mg INH Q4H PRN 04/21/18 04/21/18 Fluticasone/Salmeterol [Advair 1 puffs INH BID 04/21/18 04/21/18 500-50 Diskus] Tiotropium [place] [Spiriva 2 puffs INH DAILY 04/21/18 04/21/18 Respimat] Valsartan [Diovan] 80 mg PO DAILY 04/21/18 04/21/18 - Allergies Allergies/Adverse Reactions: Allergies Allergy/AdvReac Type Severity Reaction Status Date / Time No Known Drug Allergies Allergy Verified 04/21/18 06:23 Review of Systems - Constitutional Constitutional: reports: Fatigue, Weakness. denies: Fever, Chills, Malaise, Poor appetite - Eyes Eyes: reports: Blurred vision, Other (She is developing presbyopia and may need glasses). denies: Pain, Irritation, Amaurosis, Field loss, Vision loss - Ears, Nose & Throat Ears, Nose & Throat: reports: Nasal obstruction, Nasal congestion, Postnasal drainage. denies: Ear pain, Hearing loss, Hearing aids, Tinnitus, Vertigo, Nasal pain, Nasal discharge - Cardiovascular Cariovascular: reports: Edema (Of her legs that is gotten worse over the last week), Exertional dyspnea, Decr. exercise tolerance, Orthopnea. denies: Palpitations, Chest pain, Lightheadedness, Syncope - Respiratory Respiratory: reports: Wheezing, Orthopnea, SOB at rest, SOB with exertion. denies: Cough, Sputum production, Snoring, Hemoptysis - Gastrointestinal Gastrointestinal: reports: Reflux/heartburn. denies: Abdominal pain, Abdominal distention, Constipation, Diarrhea, Change in bowel habits - Genitourinary Genitourinary: reports: Incontinence. denies: Dysuria, Frequency, Urgency, Hematuria - Musculoskeletal Musculoskeletal: reports: Other (Her hands are just useless to her these days. She has been developing contractures on her hands and she does not know what they are about and wants to know if she needs to worry about it. It has been years). denies: Muscle pain, Back pain - Integumentary Integumentary: denies: Rash, Pruritis, Lesions, Dryness - Neurological Neurological: reports: Dizziness, Memory problems (She started to get more forgetful this last year). denies: General weakness, Focal weakness, Headache, Numbness, Pre-existing deficit, Abnormal gait, Seizures, Incoordination - Psychiatric Psychiatric: reports: Depression, Anxiety. denies: Suicidal, Delusions, Hallucinations - Endocrine Endocrine: denies: Polyuria, Polydypsia, Polyphagia - Hematologic/Lymphatic Hematologic/Lymphatic: denies: Anemia, Bruising, Petechiae Exam - Vital Signs Reviewed Vital Signs: Yes Vital Signs: Vital Signs x48h Temp Pulse Resp BP Pulse Ox 04/21/18 08:51 97 20 145/68 H 100 04/21/18 08:40 110 H 18 04/21/18 07:42 103 H 18 04/21/18 06:33 112 H 19 04/21/18 06:29 118 H 24 175/84 H 96 04/21/18 06:17 36.9 C 120 H 22 166/113 H 95 - Physical Exam General Appearance: positive: Moderate distress (She is a morbidly obese female with pursed lip breathing and increased respiratory effort mainly her using her abdominal muscles) Eyes Bilateral: positive: PERRL, EOMI ENT: positive: Pharynx nml, Other (Poor dentition) Neck: positive: No JVD. negative: Stiff neck, Carotid bruit Respiratory: positive: Chest non-tender, Other (She has completely quiet lung sounds. She is moving her chest wall, but I hear nothing.). negative: Wheezes , Rales, Rhonchi Cardiovascular: positive: Regular rate & rhythm, Tachycardia. negative: Systolic murmur, Gallop/S4, Friction rub Peripheral Pulses: positive: 1+ Abdomen: positive: Non-tender, Nml bowel sounds, No distention Extremities: positive: Full ROM, Pedal edema, Other (Dupuytren's contractures of both hands with left worse than right) Neurologic/Psychiatric: positive: Oriented x3, CN's nml (2-12), Motor nml Conclusion/Plan - Problem List (1) Chronic obstructive pulmonary disease with acute exacerbation Conclusion/Plan: She presents as an unfortunate female who has end-stage lung disease severe enough to be considered for lung transplant. However she has not had the wherewithal and appropriate social support services to be able to get her to [place] to start the process. It has been very slow going for her. She now comes in with days of acute exacerbation. No antecedent infection, and she is compliant with medication. Plan: Place in observation IV Solu-Medrol 125 3 times daily IV DuoNeb 4 times daily fixed schedule Albuterol every 4 hours as needed I did discuss with respiratory about doing a long-acting bronchodilator and long -acting inhaled steroids like she does at home. Respiratory feels like right now with the fixed dose DuoNeb and Solu-Medrol we can wait on the long-acting bronchodilator Check ECHO for pulmonary HTN or right sided evaluation. 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 But the CAT scan of her chest is concerning. I have shared the results with her and there is significant anxiety with increased respiratory rate and pursed lip breathing. Plan: She will need outpatient follow-up for this. I have explained that the first step is going to be a CT PET scan. Doing a lung biopsy on her is going to be very risky and starting with a CT PET to stage her or to see if these lesions are metabolically active would be much less invasive. If the CT PET is then positive she will have many decisions to make after counseling between her family, steamer blocker, and future oncologist. Right now this is only a neoplasm that I am seeing in the lungs. Unclear if this is a primary or secondary. Will check a CEA, stool for occult blood,and her Mammo was done 2014, CT abd 2016 for cholecystitis and nothing seen. (3) Essential (primary) hypertension Conclusion/Plan: on diovan 80 mg but BP is 180's systolic at times. Add norvasc. (4) Anxiety disorder Conclusion/Plan: xanax prn for now. Qualifiers: Anxiety disorder type: unspecified anxiety disorder Qualified Code(s): F41.9 - Anxiety disorder, unspecified (5) Chronic anemia Conclusion/Plan: check anemia panel for iron, B12, TSH. (6) Hyponatremia Conclusion/Plan: no CHF or ascites. Suspect dehydration. 0.9 NS. (7) Dupuytren's contracture of both hands Conclusion/Plan: I explained what that was. Right now, her hands are not contracted enough to get referral to a hand surgeon for release. - Lab Results Fish Bones: 04/21/18 08:22 04/21/18 08:22 - Diagnostic Imaging Results Diagnostic Imaging Results: positive: Final report reviewed (Chest x-ray shows a nodular opacity measuring 2 cm in the right lateral upper lobe with associated spiculations. No acute airspace disease. Hyperlucent lungs particularly in the upper lobes compatible with emphysema. CT scan was recommended. CT scan of the chest shows multiple new pulmonary nodules concerning for malignancy. The nodules are in the right upper lobe, right lower lobe, left lower lobe, lingula, right middle lobe, mid aspect of right middle lobe. No pleural effusion. Severe upper lobe emphysema with multifocal scarring.) Diagnostic Imaging Results Comments: CAT scan from March 27, 2017 of the abdomen showed moderate to marked colonic diverticulosis. No masses. She had multiple gallstones in the gallbladder neck and that is when she got her gallbladder taken out. Last mammogram was in 2014 and negative - EKG Results EKG Interpreted Independently: No EKG Findings: Sinus tachycardia with borderline early R-wave progression. No acute ST-T wave changes. Core Measures - Anticipated LOS I expect patient to be DC'd or transferred within 96 hours.: Yes - DVT/VTE - Prophylaxis VTE/DVT Device ordered at admit?: Yes
[2018-04-21] MEDS ORDERED: AZITHROMYCIN 250 MG TABLET PO ONE (12:00)
[2018-04-21] MEDS: methylPREDNISolone SUCCINATE 125 MG/2 ML VIAL IVP SCH ×2 (12:41→21:22)
[2018-04-21] MEDS: SODIUM CHLORIDE FLUSH 0.9% 10 ML SYRINGE IVP PRN ×2 (12:41→22:21)
[2018-04-21] MEDS: PANTOPRAZOLE 40 MG TABLET PO SCH (12:41)
[2018-04-21] MEDS: IPRATROPIUM/ALBUTEROL 3 ML NEB INH SCH ×3 (12:42→21:25)
[2018-04-21] MEDS: BUDESONIDE 0.5 MG/2 ML NEB INH SCH ×2 (12:42→21:24)
[2018-04-21] MEDS: FORMOTEROL FUMARATE NEB 20 MCG/2 ML INH SCH ×2 (14:09→21:25)
[2018-04-21] MEDS: SODIUM CHLORIDE FLUSH 0.9% 10 ML SYRINGE IVP SCH (15:37)
[2018-04-21] MEDS ORDERED: LORATADINE 10 MG TABLET PO PRN (17:41)
[2018-04-21] MEDS: SODIUM CHLORIDE 0.9% 1,000 ML IV SCH (18:03)
[2018-04-21] MEDS: amLODIPine 5 MG TABLET PO SCH (18:05)
[2018-04-21 18:16] LABS: MEAN RETIC VALUE 114.9; RED BLOOD COUNT 3.93 10^6/uL (4.20-5.40)
[2018-04-21 18:35] LABS: % IRON SATURATION 14 % (20-50); IRON 51 ug/dL (28-170); TOTAL IRON BINDING CAPACITY 370 ug/dL (250-450); TRANSFERRIN 264 mg/dL (192-382)
[2018-04-21 19:03] LABS: FERRITIN 23.4 ng/mL (11.0-306.8)
[2018-04-21] MEDS: ATORVASTATIN 10 MG TABLET PO SCH (21:22)
[2018-04-22] MEDS: SODIUM CHLORIDE 0.9% 1,000 ML IV SCH ×4 (01:34→23:42)
[2018-04-22] MEDS: SODIUM CHLORIDE FLUSH 0.9% 10 ML SYRINGE IVP SCH ×3 (01:34→17:01)
[2018-04-22] MEDS: ALBUTEROL NEB 2.5 MG/3 ML INH PRN (04:14)
[2018-04-22] MEDS: methylPREDNISolone SUCCINATE 125 MG/2 ML VIAL IVP SCH ×3 (06:13→21:31)
[2018-04-22] MEDS: PANTOPRAZOLE 40 MG TABLET PO SCH (06:13)
[2018-04-22] MEDS: SODIUM CHLORIDE FLUSH 0.9% 10 ML SYRINGE IVP PRN (06:13)
[2018-04-22 06:30] LABS: CALCIUM 8.5 mg/dL (8.5-10.3); CREATININE 0.6 mg/dL (0.4-1.0)
[2018-04-22] MEDS: BUDESONIDE 0.5 MG/2 ML NEB INH SCH ×2 (08:56→16:49)
[2018-04-22] MEDS: FORMOTEROL FUMARATE NEB 20 MCG/2 ML INH SCH ×2 (08:56→16:49)
[2018-04-22] MEDS: IPRATROPIUM/ALBUTEROL 3 ML NEB INH SCH ×3 (08:56→16:44)
[2018-04-22] MEDS: LOSARTAN 50 MG TABLET PO SCH (09:22)
[2018-04-22] MEDS: POLYETHYLENE GLYCOL 3350 17 GM PACKET PO SCH (09:22)
[2018-04-22] MEDS: amLODIPine 5 MG TABLET PO SCH (09:22)
[2018-04-22] MEDS: MORPHINE 2 MG/ML SYRINGE IVP PRN ×2 (10:08→13:37)
--- NOTE | 2018-04-22 14:24 | PROVIDER PROGRESS NOTE ---
Subjective - Prog Note Date Prog Note Date: 04/22/18 Prog Note Time: 14:22 - Subjective Pt reports feeling: Worse Subjective: I walked in this morning to assess her for discharge. She is in observation status patient. Overnight she seemed to have done well she tells me. At this morning, in the printer's devil hours, she started getting more more short of breath. She sat up to eat breakfast and just the activity of eating breakfast and then getting back in bed made her severely short of breath. I saw her again this afternoon and again, struggling to breath. this is in spite of frequent nebs, steroids. she again refuses BiPAP bc of claustrophia. If I have to, intubate. Current Medications - Current Medications Current Medications: Active Medications Acetaminophen (Tylenol) 650 mg PO Q4HR PRN PRN Reason: Pain 1 to 4 Albuterol () 2.5 mg INH RTQ4H PRN PRN Reason: Wheezing Last Admin: 04/22/18 04:14 Dose: 2.5 mg Albuterol/Ipratropium (Duoneb) 3 ml INH RTQID [facility] Last Admin: 04/22/18 13:25 Dose: 3 ml Amlodipine Besylate (Norvasc) 5 mg PO DAILY [facility] Last Admin: 04/22/18 09:22 Dose: 5 mg Atorvastatin Calcium (Lipitor) 20 mg PO QPM [facility] Last Admin: 04/21/18 21:22 Dose: 20 mg Budesonide (Pulmicort) 0.5 mg INH RTBID [facility] Last Admin: 04/22/18 08:56 Dose: 0.5 mg Formoterol Fumarate (Perforomist) 20 mcg INH RTBID [facility] Last Admin: 04/22/18 08:56 Dose: 20 mcg Sodium Chloride (Normal Saline 0.9%) 1,000 mls @ 125 mls/hr IV .Q8H [facility] Last Admin: 04/22/18 09:23 Dose: 125 mls/hr Loratadine (Claritin) 10 mg PO DAILY PRN PRN Reason: Shortness of Air/Wheezing Losartan Potassium (Cozaar) 50 mg PO DAILY [facility] Last Admin: 04/22/18 09:22 Dose: 50 mg Methylprednisolone Sodium Succinate (Solu-Medrol (125mg Vial)) 125 mg IVP TID [facility] Last Admin: 04/22/18 13:37 Dose: 125 mg Morphine Sulfate (Morphine) 2 mg IVP Q2H PRN PRN Reason: PAIN/DYSPNEA/AGITATION Last Admin: 04/22/18 13:37 Dose: 2 mg Ondansetron HCl (Zofran Inj) 4 mg IVP Q6HR PRN PRN Reason: Nausea / Vomiting Last Admin: 04/22/18 10:12 Dose: 4 mg Ondansetron HCl (Zofran Odt) 4 mg TL Q6HR PRN PRN Reason: Nausea / Vomiting Pantoprazole Sodium (Protonix) 40 mg PO QDAC [facility] Last Admin: 04/22/18 06:13 Dose: 40 mg Polyethylene Glycol (Miralax) 17 gm PO DAILY [facility] Last Admin: 04/22/18 09:22 Dose: Not Given Sodium Chloride (Normal Saline Flush 0.9%) 10 ml IVP PRN PRN PRN Reason: NEEDED PER PROVIDER ORDERS Last Admin: 04/22/18 06:13 Dose: 10 ml Sodium Chloride (Normal Saline Flush 0.9%) 10 ml IVP 0100,0900,1700 [facility] Last Admin: 04/22/18 09:23 Dose: Not Given Albuterol Sulfate [Proair Hfa Inhaler] 1 - 2 puffs INH Q4H PRN 08/31/16 Atorvastatin Calcium 20 mg PO QPM 08/31/16 Cholecalciferol (Vitamin D3) [Vitamin D] 2,000 unit PO DAILY #0 06/06/17 Multivitamin [Theragran] 1 each PO DAILY #0 06/06/17 Fluticasone Propionate 1 spray PAULINE BID PRN 09/15/17 Ondansetron [Zofran Odt] 8 mg PO Q8HR PRN 09/15/17 Loratadine 10 mg PO DAILY PRN MDD 1 capsule 04/11/18 Albuterol 2.5 mg INH Q4H PRN 04/21/18 Fluticasone/Salmeterol [Advair 500-50 Diskus] 1 puffs INH BID 04/21/18 Tiotropium [place] [Spiriva Respimat] 2 puffs INH DAILY 04/21/18 Valsartan [Diovan] 80 mg PO DAILY 04/21/18 Objective - Vital Signs/Intake & Output Reviewed Vital Signs: Yes Vital Signs: Vital Signs x48h Temp Pulse Pulse Resp BP Pulse Ox 04/22/18 13:25 108 H 22 04/22/18 13:00 36.9 C 107 H 18 124/77 95 Intake & Output: Intake & Output 04/19/18 04/20/18 04/21/18 04/22/18 23:59 23:59 23:59 23:59 Intake Total 1177.083 Balance 1177.083 - Objective General Appearance: positive: Alert, Moderate distress, Anxious, Other (Middle- aged obese female sitting upright in bed, tachypneic, pursed lip breathing, use of accessory muscles was sternocleido mastoid neck muscles bulging.) Eyes Bilateral: positive: PERRL ENT: positive: Pharynx nml, Dry mucous membranes Neck: positive: No JVD. negative: Stiff neck, Carotid bruit Respiratory: positive: Chest non-tender, Wheezes. negative: Rales, Rhonchi Cardiovascular: positive: Tachycardia, Systolic murmur. negative: Gallop/S4, Friction rub Abdomen: positive: Non-tender, Nml bowel sounds, No distention Skin: positive: Warm, Diaphoresis Extremities: positive: Full ROM, Pedal edema (but less than yesterday. No venous stasis changes of skin) Neurologic/Psychiatric: positive: Oriented x3, CN's nml (2-12), Motor nml - Lab Results Fish Bones: 04/21/18 08:22 04/22/18 06:10 ABX Reporting Has patient been on IV antibiotics over the past 48 hours?: Yes Assessment/Plan - Problem List (1) Chronic obstructive pulmonary disease with acute exacerbation Impression: She presents as an unfortunate female who has end-stage lung disease severe enough to be considered for lung transplant. However she has not had the wherewithal and appropriate social support services to be able to get her to [place] to start the process. It has been very slow going for her. She now comes in with days of acute exacerbation. No antecedent infection, and she is compliant with medication.She is not responding to current treatment regime. As such she will be transferred to inpatient status. I have talked to her about BiPAP and she is terrified. She says she severely claustrophobic. So she goes into respiratory failure I fear that I may have to intubate her and then use propofol and sedation to get her through this. Echocardiogram when compared to August 2017 shows intact right and left ventricular systolic function. She is developing higher pulmonary pressures with right ventricular systolic pressure 31 in the past echo and 44 in the current echo. This is preliminary reading. Plan: Change to inpatient status Continue: IV Solu-Medrol 125 3 times daily IV DuoNeb 4 times daily fixed schedule Albuterol every 4 hours as needed I did discuss with respiratory about doing a long-acting bronchodilator and long -acting inhaled steroids like she does at home. 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 But the CAT scan of her chest is concerning. I have shared the results with her and there is significant anxiety with increased respiratory rate and pursed lip breathing when this topic is broached. In looking for primary neoplasms that might have mets, CEA is low, she had a mammogram 2014 and nml. Exam neg for masses. FOBT ordered and no specimen yet. Plan: She will need outpatient follow-up for this. I have explained that the first step is going to be a CT PET scan. Doing a lung biopsy on her is going to be very risky and starting with a CT PET to stage her or to see if these lesions are metabolically active would be much less invasive. If the CT PET is then positive she will have many decisions to make after counseling between her family, progress developer, and future oncologist. Right now this is only a neoplasm that I am seeing in the lungs. (3) Essential (primary) hypertension Conclusion/Plan: on diovan 80 mg but BP is 180's systolic at times. Add norvasc. (4) Anxiety disorder Conclusion/Plan: xanax prn for now. Add morphine IV q2h prn to help with exertion of breathing and anxiety Qualifiers: Anxiety disorder type: unspecified anxiety disorder Qualified Code(s): F41.9 - Anxiety disorder, unspecified (5) Chronic anemia Conclusion/Plan: so anemia is not from iron def or B12 def from lab eval. Laboratory Tests 04/21/18 04/21/18 04/21/18 17:55 17:55 17:55 Reticulocyte % (Auto) 1.98 Absolute Retic 0.078 Iron 51 TIBC 370 % Saturation 14 L Transferrin 264 Ferritin 23.4 Lactate Dehydrogenase Carcinoembryonic Ag Vitamin B12 192 04/21/18 04/21/18 17:55 17:55 Reticulocyte % (Auto) Absolute Retic Iron TIBC % Saturation Transferrin Ferritin Lactate Dehydrogenase 142 Carcinoembryonic Ag 2.8 Vitamin B12 (6) Hyponatremia Conclusion/Plan: no CHF or ascites. Suspect dehydration. 0.9 NS given and her Na is now nml today. (7) Dupuytren's contracture of both hands Conclusion/Plan: I explained what that was. Right now, her hands are not contracted enough to get referral to a hand surgeon for release.
[2018-04-22] MEDS: ATORVASTATIN 10 MG TABLET PO SCH (21:31)
[2018-04-23] MEDS: SODIUM CHLORIDE FLUSH 0.9% 10 ML SYRINGE IVP SCH ×4 (01:16→23:39)
[2018-04-23] MEDS: ALBUTEROL NEB 2.5 MG/3 ML INH PRN (02:22)
[2018-04-23] MEDS: PANTOPRAZOLE 40 MG TABLET PO SCH (06:13)
[2018-04-23] MEDS: methylPREDNISolone SUCCINATE 125 MG/2 ML VIAL IVP SCH ×3 (06:13→21:57)
[2018-04-23] MEDS: IPRATROPIUM/ALBUTEROL 3 ML NEB INH SCH ×5 (06:39→20:53)
[2018-04-23] MEDS: SODIUM CHLORIDE 0.9% 1,000 ML IV SCH ×3 (07:07→22:33)
[2018-04-23] MEDS: POLYETHYLENE GLYCOL 3350 17 GM PACKET PO SCH (07:49)
[2018-04-23] MEDS: amLODIPine 5 MG TABLET PO SCH (08:59)
[2018-04-23] MEDS: LOSARTAN 50 MG TABLET PO SCH (08:59)
[2018-04-23] MEDS: MORPHINE 2 MG/ML SYRINGE IVP PRN ×2 (09:01→16:39)
[2018-04-23] MEDS: BUDESONIDE 0.5 MG/2 ML NEB INH SCH ×2 (09:11→20:53)
[2018-04-23] MEDS: FORMOTEROL FUMARATE NEB 20 MCG/2 ML INH SCH ×2 (09:11→20:54)
--- NOTE | 2018-04-23 09:14 | PROVIDER PROGRESS NOTE ---
Subjective - Prog Note Date Prog Note Date: 04/23/18 Prog Note Time: 18:21 - Subjective Pt reports feeling: No change Subjective: Her case therapist from [employer] came by. He shared with me that she has been cutting back on her nebs and inhalers. He told me that there was some problem with [employer]. The orders will be sent to the office and she was not getting her medications. I shared that with our respiratory therapist this afternoon. The respiratory therapist said that no wonder the patient was getting her meds because [employer] went out of business. This patient's current exacerbation may be due to her cutting back on her meds. She is still significantly short of breath at rest. Continues to be short of breath just sitting up for lung exam or to eat her food. She has to get a nebulizer treatment before and after eating just to be able to maintain the shortness of breath with exertion. Current Medications - Current Medications Current Medications: Active Medications Acetaminophen (Tylenol) 650 mg PO Q4HR PRN PRN Reason: Pain 1 to 4 Albuterol () 2.5 mg INH RTQ4H PRN PRN Reason: Wheezing Last Admin: 04/23/18 02:22 Dose: 2.5 mg Albuterol/Ipratropium (Duoneb) 3 ml INH RTQID [facility] Last Admin: 04/23/18 16:42 Dose: 3 ml Alprazolam (Xanax) 0.25 mg PO Q6HR PRN PRN Reason: Anxiety Amlodipine Besylate (Norvasc) 5 mg PO DAILY [facility] Last Admin: 04/23/18 08:59 Dose: 5 mg Atorvastatin Calcium (Lipitor) 20 mg PO QPM [facility] Last Admin: 04/22/18 21:31 Dose: 20 mg Budesonide (Pulmicort) 0.5 mg INH RTBID [facility] Last Admin: 04/23/18 09:11 Dose: 0.5 mg Formoterol Fumarate (Perforomist) 20 mcg INH RTBID [facility] Last Admin: 04/23/18 09:11 Dose: 20 mcg Sodium Chloride (Normal Saline 0.9%) 1,000 mls @ 125 mls/hr IV .Q8H [facility] Last Admin: 04/23/18 14:45 Dose: 125 mls/hr Loratadine (Claritin) 10 mg PO DAILY PRN PRN Reason: Shortness of Air/Wheezing Losartan Potassium (Cozaar) 50 mg PO DAILY [facility] Last Admin: 04/23/18 08:59 Dose: 50 mg Methylprednisolone Sodium Succinate (Solu-Medrol (125mg Vial)) 125 mg IVP TID [facility] Last Admin: 04/23/18 13:46 Dose: 125 mg Morphine Sulfate (Morphine) 2 mg IVP Q2H PRN PRN Reason: PAIN/DYSPNEA/AGITATION Last Admin: 04/23/18 16:39 Dose: 2 mg Morphine Sulfate (Roxanol) 2 mg PO Q2HR PRN PRN Reason: PAIN Ondansetron HCl (Zofran Inj) 4 mg IVP Q6HR PRN PRN Reason: Nausea / Vomiting Last Admin: 04/22/18 10:12 Dose: 4 mg Ondansetron HCl (Zofran Odt) 4 mg TL Q6HR PRN PRN Reason: Nausea / Vomiting Pantoprazole Sodium (Protonix) 40 mg PO QDAC [facility] Last Admin: 04/23/18 06:13 Dose: 40 mg Polyethylene Glycol (Miralax) 17 gm PO DAILY [facility] Last Admin: 04/23/18 07:49 Dose: Not Given Sodium Chloride (Normal Saline Flush 0.9%) 10 ml IVP PRN PRN PRN Reason: NEEDED PER PROVIDER ORDERS Last Admin: 04/22/18 06:13 Dose: 10 ml Sodium Chloride (Normal Saline Flush 0.9%) 10 ml IVP 0100,0900,1700 [facility] Last Admin: 04/23/18 16:39 Dose: 10 ml Albuterol Sulfate [Proair Hfa Inhaler] 1 - 2 puffs INH Q4H PRN 08/31/16 Atorvastatin Calcium 20 mg PO QPM 08/31/16 Cholecalciferol (Vitamin D3) [Vitamin D] 2,000 unit PO DAILY #0 06/06/17 Multivitamin [Theragran] 1 each PO DAILY #0 06/06/17 Fluticasone Propionate 1 spray PAULINE BID PRN 09/15/17 Ondansetron [Zofran Odt] 8 mg PO Q8HR PRN 09/15/17 Loratadine 10 mg PO DAILY PRN MDD 1 capsule 04/11/18 Albuterol 2.5 mg INH Q4H PRN 04/21/18 Fluticasone/Salmeterol [Advair 500-50 Diskus] 1 puffs INH BID 04/21/18 Tiotropium [place] [Spiriva Respimat] 2 puffs INH DAILY 04/21/18 Valsartan [Diovan] 80 mg PO DAILY 04/21/18 Objective - Vital Signs/Intake & Output Reviewed Vital Signs: Yes Vital Signs: Vital Signs x48h Temp Pulse Pulse Resp BP Pulse Ox 04/23/18 09:00 36.4 C L 102 H 18 151/71 H 97 04/23/18 07:51 99 20 04/23/18 05:00 36.6 C 106 H 18 151/94 H 92 04/23/18 02:25 98 12 Intake & Output: Intake & Output 04/20/18 04/21/18 04/22/18 04/23/18 23:59 23:59 23:59 23:59 Intake Total 3506.666 1407.083 Balance 3506.666 1407.083 - Objective General Appearance: positive: Alert, Moderate distress, Other (This poor lady continues to have pursed lip breathing, increased dyspnea on exertion just speaking to me sitting in her bed) Eyes Bilateral: positive: PERRL, EOMI Neck: positive: No JVD. negative: Stiff neck, Carotid bruit Respiratory: positive: Chest non-tender, Wheezes. negative: Rales, Rhonchi Cardiovascular: positive: Regular rate & rhythm. negative: Gallop/S4, Friction rub Skin: positive: Warm, Dry Extremities: positive: Full ROM, No pedal edema Neurologic/Psychiatric: positive: Oriented x3, CN's nml (2-12), Motor nml - Lab Results Fish Bones: 04/21/18 08:22 04/22/18 06:10 ABX Reporting Has patient been on IV antibiotics over the past 48 hours?: No Assessment/Plan - Problem List (1) Chronic obstructive pulmonary disease with acute exacerbation Impression: She presents as an unfortunate female who has end-stage lung disease severe enough to be considered for lung transplant. However she has not had the wherewithal and appropriate social support services to be able to get her to [place] to start the process. It has been very slow going for her. She now comes in with days of acute exacerbation. No antecedent infection, and she is compliant with medication.She is not responding to current treatment regime. As such she will be transferred to inpatient status. I have talked to her about BiPAP and she is terrified. She says she severely claustrophobic. So she goes into respiratory failure I fear that I may have to intubate her and then use propofol and sedation to get her through this. Echocardiogram when compared to August 2017 shows intact right and left ventricular systolic function. She is developing higher pulmonary pressures with right ventricular systolic pressure 31 in the past echo and 44 in the current echo. This is preliminary reading. She is not much better from admission. Still wheezing and sob at rest. Any activity like sitting up to eat decompensates her quickly. Plan: Changed to inpatient status from [facility] Continue: IV Solu-Medrol 125 3 times daily IV DuoNeb 4 times daily fixed schedule Albuterol every 4 hours as needed I did discuss with respiratory about doing a long-acting bronchodilator and long -acting inhaled steroids like she does at home. Respiratory feels like right now with the fixed dose DuoNeb and Solu-Medrol we can wait on the long-acting bronchodilator but then it was added yesterday. I have also has RT to speak to the patient to present [employer] or [employer]. Which of those she would prefer and I will fill out DME request to get those meds started so she can have them when she returns to home. She was admitted 04/21 and I have not seen much improvment in this lady. 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 But the CAT scan of her chest is concerning. I have shared the results with her and there is significant anxiety with increased respiratory rate and pursed lip breathing when this topic is broached. In looking for primary neoplasms that might have mets, CEA is low, she had a mammogram 2015 and nml. Exam neg for masses. FOBT ordered and no specimen yet. Plan: She will need outpatient follow-up for this. I have explained that the first step is going to be a CT PET scan. Doing a lung biopsy on her is going to be very risky and starting with a CT PET to stage her or to see if these lesions are metabolically active would be much less invasive. If the CT PET is then positive she will have many decisions to make after counseling between her family, anime artist, and future oncologist. Right now this is only a neoplasm that I am seeing in the lungs. (3) Essential (primary) hypertension Conclusion/Plan: on diovan 80 mg but BP is 180's systolic at times. Added norvasc 04/21 and BP 148-164 systolic. No change for now. this will take up to 2 weeks for max effect. (4) Anxiety disorder Conclusion/Plan: xanax prn for now. I forgot to order and will do so today. Already Added morphine IV q2h prn to help with exertion of breathing and anxiety. It is helping. Instead of IV morphine will also try for roxanol prn. Qualifiers: Anxiety disorder type: unspecified anxiety disorder Qualified Code(s): F41.9 - Anxiety disorder, unspecified (5) Chronic anemia Conclusion/Plan: so anemia is not from iron def or B12 def from lab eval. Laboratory Tests 04/21/18 04/21/18 04/21/18 17:55 17:55 17:55 Reticulocyte % (Auto) 1.98 Absolute Retic 0.078 Iron 51 TIBC 370 % Saturation 14 L Transferrin 264 Ferritin 23.4 Lactate Dehydrogenase Carcinoembryonic Ag Vitamin B12 192 04/21/18 04/21/18 17:55 17:55 Reticulocyte % (Auto) Absolute Retic Iron TIBC % Saturation Transferrin Ferritin Lactate Dehydrogenase 142 Carcinoembryonic Ag 2.8 Vitamin B12 (6) Hyponatremia Conclusion/Plan: no CHF or ascites. Suspect dehydration. 0.9 NS given and her Na is now nml on 04/22/18. (7) Dupuytren's contracture of both hands Conclusion/Plan: I explained what that was. Right now, her hands are not contracted enough to get referral to a hand surgeon for release.
[2018-04-23] MEDS ORDERED: MORPHINE SOL 10 MG/0.5 ML SYRINGE PO PRN (14:24)
[2018-04-23] MEDS: ALPRAZolam 0.25 MG TABLET PO PRN (19:48)
[2018-04-23] MEDS: ATORVASTATIN 10 MG TABLET PO SCH (21:57)
[2018-04-23] MEDS: SODIUM CHLORIDE FLUSH 0.9% 10 ML SYRINGE IVP PRN (21:58)
[2018-04-24 00:26] LABS: ABG BASE EXCESS 4.5 mmol/L (-2.0-3.0); ABG HCO3 30.4 mmol/L (22.0-26.0); ABG OXYGEN SATURATION 97 % (94-98); ABG PCO2 51 mmHg (34-45); ABG PH 7.39 (7.35-7.45); ABG PO2 92 mmHg (80-100)
[2018-04-24 05:51] LABS: BASOPHILS % (AUTO) 0.4 %; EOSINOPHILS % (AUTO) 0.1 %; HGB - HEMOGLOBIN 11.7 g/dL (12.0-16.0); LYMPHOCYTES # (AUTO) 0.6 10^3/uL (1.5-3.5); MEAN CORPUSCULAR HEMOGLOBIN 30.9 pg (27.0-31.0); MEAN CORPUSCULAR VOLUME 93.5 fL (81.0-99.0); MEAN PLATELET VOLUME 6.1 fL (7.9-10.8); MONOCYTES # (AUTO) 0.3 10^3/uL (0.0-1.0); MONOCYTES % (AUTO) 2.5 %; NEUTROPHILS # (AUTO) 9.6 10^3/uL (1.5-6.6); PLT - PLATELET COUNT 296 10^3/uL (130-450); RED BLOOD COUNT 3.79 10^6/uL (4.20-5.40); RED CELL DISTRIBUTION WIDTH 13.9 % (12.0-15.0); WHITE BLOOD COUNT 10.6 x10^3/uL (4.8-10.8)
[2018-04-24 05:56] LABS: CREATININE 0.4 mg/dL (0.4-1.0)
[2018-04-24] MEDS: BUDESONIDE 0.5 MG/2 ML NEB INH SCH ×2 (05:56→22:10)
[2018-04-24] MEDS: IPRATROPIUM/ALBUTEROL 3 ML NEB INH SCH ×4 (05:56→22:10)
[2018-04-24] MEDS: FORMOTEROL FUMARATE NEB 20 MCG/2 ML INH SCH ×2 (05:57→22:10)
[2018-04-24] MEDS: PANTOPRAZOLE 40 MG TABLET PO SCH (06:27)
[2018-04-24] MEDS: SODIUM CHLORIDE 0.9% 1,000 ML IV SCH ×2 (06:27→20:33)
[2018-04-24] MEDS: methylPREDNISolone SUCCINATE 125 MG/2 ML VIAL IVP SCH ×3 (06:27→20:37)
[2018-04-24] MEDS: POLYETHYLENE GLYCOL 3350 17 GM PACKET PO SCH ×2 (07:24→08:54)
[2018-04-24] MEDS: SODIUM CHLORIDE FLUSH 0.9% 10 ML SYRINGE IVP SCH ×2 (07:24→18:19)
[2018-04-24] MEDS: MORPHINE 2 MG/ML SYRINGE IVP PRN (08:54)
[2018-04-24] MEDS: LOSARTAN 50 MG TABLET PO SCH (08:54)
[2018-04-24] MEDS: amLODIPine 5 MG TABLET PO SCH (08:54)
--- NOTE | 2018-04-24 10:59 | Discharge Plan ---
Discharge Plan Disposition: 01 Home, Self Care Condition: Serious Prescriptions: Albuterol 2.5 mg INH RTQ4H PRN #180 neb PRN Reason: Wheezing amLODIPine [Norvasc] 5 mg PO DAILY #20 tablet Budesonide [Pulmicort] 0.5 mg INH RTBID #20 neb Fluticasone/Salmeterol [Advair 500-50 Diskus] 1 puffs INH BID #1 [facility] Formoterol Fumarate [Perforomist] 20 mcg INH RTBID #20 neb Tiotropium [place] [Spiriva Respimat] 2 puffs INH BID #2 mist.inhal Diet: Low Sodium Activity Restrictions: Activity as Tolerated Shower Restrictions: No Driving Restrictions: Yes (Pt should not drive) Assistance Devices: Wheelchair, Walker Weight Bearing: Full Weight Instruction Topics: Atorvastatin tablets, Amlodipine Additional Instructions or Follow Up instructions: Discharge home today with hospice/palliative care. It is very important that you follow-up with a chest CAT scan in 1 month to see whether or not the nodules are getting bigger or smaller. Used the [employer] machine as directed. No Smoking: If you smoke, Please STOP! Call for help. Follow-up with: Kirti Phillips ARNP [Primary Care Provider] -
[2018-04-24] MEDS: SODIUM CHLORIDE FLUSH 0.9% 10 ML SYRINGE IVP PRN ×2 (14:18→20:33)
--- NOTE | 2018-04-24 14:29 | DISCHARGE SUMMARY ---
Discharge Summary Admit Date: 04/21/18 Discharge Date: 04/24/18 Discharging Provider: Margo Gonsalves DO Primary Care Provider: Kirti Phillips Code Status: Attempt Resuscitation Condition at Discharge: Serious Discharge Disposition: 01 Home, Self Care - DIAGNOSES Admission Diagnoses: 1. Chronic obstructive pulmonary disease with acute exacerbation 2. Neoplasm of uncertain behavior of trachea, bronchus and lung 3. Essential hypertension 4. Anxiety disorder 5. Chronic anemia 6. Hyponatremia 7. Dupuytren's contractures of both hands Discharge Diagnoses with Status of Each Condition: 1. Chronic obstructive pulmonary disease with acute exacerbation, improved but the pt is still SIGNIFICANTLY debilitated, however pt is refusing rehab placement and says she has family members in town who will help her at home. 2. Neoplasm of uncertain behavior of trachea, bronchus and lung. Multiple nodules seen in B lungs on CT scan. Pt to F/U with PCP next week and get repeat scan w/in 1 month. 3. Essential hypertension- continue norvasc and diovan 4. Anxiety disorder- continue PRN xanax. 5. Chronic anemia- B12, Iron levels WNL. Likely anemia of chronic disease. Hgb 11.7 6. Hyponatremia - correcting/corrected 7. Dupuytren's contractures of both hands- stable - HPI History of Present Illness: From Dr. Webb's H&P: The patient is a female who has end-stage lung disease. She is followed by a hog scalder and has recently changed hog scalder. Because of her end-stage lung disease she is hoping to get a lung transplant. She started smoking at the age of 17 and smoked 1 pack per day until approximately 2007. In reviewing her medical records through [employer], she is a shy, introverted person. Has difficulty broaching difficult topics. She has had palliative care consultation with Ellie garciaand Nalini Dejesus. She still has yet to fill out a pulsed form, but has managed to designate her sister Angie as her power of renewals manager at [phone]. She says that she has been compliant with her medications. However, some of her medications that are on her list have not been filled in over a year at the pharmacy. She is vague about why that is. She does do her long-acting bronchodilator, inhaled steroid, rescue inhaler on a regular basis. She is basically homebound. She last left her house weeks ago. This is because of severe effort required to just move from a sitting to standing position much less being able to walk out of the house to get into her car. The last time she saw her hog scalder 1 or 2 months ago her baseline O2 at rest was increased from 2 L a minute to 3 L a minute because of hypoxia. She gets a jonathan care provider 5 hours a day for 5 days out of the week. That jonathan provider is her only way of surviving in that that is how she gets her laundry done, housekeeping done, grocery shopping, doctor visits, bathing done etc. In the last few days she has been having increasing shortness of breath at rest. It does not matter what she does she cannot get her breath. Usually if she sits down, increases her oxygen and does not nebulizer treatment she will have some relief enough to let her get by. For the last few days as not working. She has been practicing her purse lip breathing. She does not have fever, chills, congestion. There is been no change in the color of her phlegm. There have been no visitors to give her a cold. She finally came to the emergency room and was evaluated by Dr. Wyman. This is after she received treatment with EMS. This patient is still clearly in respiratory distress with pursed lip breathing even after steroids, antibiotics , and nebulizers in the emergency room. She is now admitted for COPD exacerbation. - HOSPITAL COURSE Hospital Course: The patient was admitted to medical surgical bed, placed on bronchodilators, steroids, and antibiotics, and slowly showed improvement, eventually getting back to baseline this morning. She still quite short of breath however and exhibits pursed lip breathing despite being on supplemental oxygen and lying perfectly still. We have discussed rehab however the patient is adamant that she wishes to go back home and will not entertain any other ideas at this time. - ALLERGIES Allergies/Adverse Reactions: Allergies Allergy/AdvReac Type Severity Reaction Status Date / Time No Known Drug Allergies Allergy Verified 04/21/18 06:23 - MEDICATIONS Home Medications: Ambulatory Orders Medication Instructions Recorded Confirmed Albuterol Sulfate [Proair Hfa 1 - 2 puffs INH Q4H PRN 08/31/16 04/21/18 Inhaler] Atorvastatin Calcium 20 mg PO QPM 08/31/16 04/21/18 Cholecalciferol (Vitamin D3) 2,000 unit PO DAILY #0 06/06/17 04/21/18 [Vitamin D3] Multivitamin [Theragran] 1 each PO DAILY #0 06/06/17 04/21/18 Fluticasone Propionate 1 spray PAULINE BID PRN 09/15/17 04/21/18 Ondansetron [Zofran Odt] 8 mg PO Q8HR PRN 09/15/17 04/21/18 Loratadine 10 mg PO DAILY PRN MDD 1 capsule 04/11/18 04/21/18 Albuterol 2.5 mg INH Q4H PRN 04/21/18 04/21/18 Valsartan [Diovan] 80 mg PO DAILY 04/21/18 04/21/18 Albuterol 2.5 mg INH RTQ4H PRN #180 neb 04/23/18 Fluticasone/Salmeterol [Advair 1 puffs INH BID #1 blst.w.dev 04/23/18 500-50 Diskus] Tiotropium [place] [Spiriva 2 puffs INH BID #2 mist.inhal 04/23/18 Respimat] Budesonide [Pulmicort] 0.5 mg INH RTBID #20 neb 04/24/18 Formoterol Fumarate [Perforomist] 20 mcg INH RTBID #20 neb 04/24/18 Ipratropium/Albuterol [Duoneb] 3 ml INH RTQID neb 04/24/18 amLODIPine [Norvasc] 5 mg PO DAILY #20 tablet 04/24/18 - PHYSICAL EXAM AT DISCHARGE General Appearance: positive: No acute distress, Alert Eyes Bilateral: positive: Normal inspection, PERRL, EOMI, No lid inflammation, Conjunctivae nml, No scleral icterus ENT: positive: ENT inspection nml, Pharynx nml, No signs of dehydration Neck: positive: Nml inspection, Thyroid nml, No JVD, Trachea midline. negative : Thyromegaly Respiratory: positive: Chest non-tender, No respiratory distress, Other (Breath sounds diminished in all [place]win). negative: Wheezes, Rales, Rhonchi Cardiovascular: positive: Regular rate & rhythm, No murmur, No gallop Peripheral Pulses: positive: 1+ Abdomen: positive: Non-tender, No organomegaly, Nml bowel sounds, No distention. negative: Guarding, Rebound Back: positive: Nml inspection. negative: CVA tenderness (R), CVA tenderness (L ) Skin: positive: Color nml, No rash, Warm, Dry. negative: Cyanosis Extremities: positive: Non-tender, Full ROM, Nml appearance Neurologic/Psychiatric: positive: Oriented x3, CN's nml (2-12), Motor nml, Sensation nml, Mood/affect nml - LABS Result Diagrams: 04/24/18 05:15 04/24/18 05:15 - DIAGNOSTIC IMAGING Diagnostic Imaging Results: Final report reviewed Diagnostic Imaging Results Comments: EXAM: CHEST RADIOGRAPHY EXAM DATE: 04/21/2018 08:36 AM. CLINICAL HISTORY: Cough. Shortness of breath. COPD and is oxygen dependent. COMPARISON: 09/02/2017. TECHNIQUE: 2 views. FINDINGS: Lungs/Pleura: Hyperlucent lungs, particularly in the upper lobes, compatible with emphysema. There is a nodular opacity in the right lateral upper lobe measuring 2 cm with associated spiculations. No pneumothorax. No pleural effusions. Mediastinum: Heart and mediastinal contours are unremarkable. Aortic calcifications are compatible with atherosclerotic disease Other: Mild degenerative changes within the spine. Deformity of the left fifth rib compatible with prior injury. IMPRESSION: 1. Nodular opacity measuring 2 cm in the right lateral upper lobe with associated spiculations. It is possible this is a mass or scarring from emphysema. CT scan is recommended for further evaluation. 2. No acute airspace process. EXAM: CT CHEST EXAM DATE: 04/21/2018 09:46 AM. CLINICAL HISTORY: Copd, CXR shows mass, rad rec CT with con. COMPARISONS: Chest radiograph from 04/21/[address] chest from 03/30/2011. TECHNIQUE: Routine helical CT imaging was performed through the chest. IV contrast: 80 mL Isovue- 300. Reconstructions: Coronal and sagittal. In accordance with CT protocol optimization, one or more of the following dose reduction techniques were utilized for this exam: automated exposure control, adjustment of mA and/or KV based on patient size, or use of iterative reconstructive technique. FINDINGS: Lungs/Pleura: -There is severe upper lobe emphysema with multifocal scarring. -There is a new anterior right upper lobe somewhat irregular nodularity measuring 1.6 x 2.3 cm. This is equivocal regarding malignancy. Follow-up with PET/CT is recommended to better assess. -New rectangular 5 x 10 mm nodularity seen at the right lower lobe laterally, image #47 of series 4. -New 4 mm nodule seen at the left lower lobe posteriorly, image #29 of series 4. -New somewhat patchy 8mm nodularity seen at the lingula, image #41 of series 4. -Questionable new 3 mm nodule at the medial aspect of the right middle lobe, image #41 of series 4. -Probable new 3 mm nodule of the mid aspect of the right middle lobe, image #46 of series 4. No pleural effusion. Mediastinum: Mild pretracheal and para-aortic lymph node prominence, similar to previous. No yang mediastinal lymphadenopathy. Normal size heart. Bones: No significant skeletal abnormality. Visualized Abdomen: Status post cholecystectomy. Otherwise unremarkable. Other: None. IMPRESSION: Multiple new pulmonary nodules, concerning for malignancy. Appropriate clinical workup should be done. Consider PET/CT evaluation of the new right upper lobe nodule. Findings are superimposed on severe upper lobe emphysema. - FOLLOW UP Follow Up: Follow-up with your primary care physician and hog scalder in the next 2 weeks - TIME SPENT Time Spent in Discharge (Minutes): 40
[2018-04-24] MEDS: ALPRAZolam 0.25 MG TABLET PO PRN (19:38)
[2018-04-24] MEDS: ATORVASTATIN 10 MG TABLET PO SCH (20:36)
--- NOTE | 2018-04-24 20:46 | CONSULTATION NOTE ---
Palliative Care Follow Up - Referral Referring Provider: Dr Gonsalves Time of Visit: 04/24/2018. 12:30 - 13:15 Referral setting: Hospitalized patient Referral Reason: Advanced care planning - Information Sources Records reviewed: Previous records reviewed History/Review of Systems obtained from: Patient Exam limitations: No limitations - History of Present Illness Update Brief HPI Update: A reserved and introverted 68-year-old woman with severe end- stage COPD and pulmonary fibrosis was hospitalized 04/21/18 for severe shortness of breath. During the course of this hospitalization, CT chest revealed multiple new pulmonary nodules spread throughout right lung and also left lower lobe, concerning for malignancy. Chest radiography revealed nodular opacity in R lateral upper lobe measuring 2cm. Recommendation is made for appropriate clinical workup and PET/CT evaluation of the new right upper lobe nodule. Patient is quite adamant that she does not want to go to a halfway facility for respiratory therapy or rehabilitation. After lengthy discussion, she does admit the fear that if she goes there, it will be like she is "giving up" and that she will never leave. [employer] was also present at this visit, and in the patient's quiet but determined manner, against all our points of concern about this plan, she is totally opposed to discharging any place but home. She lives alone in a very small unit in [place], and has a LAURA caregiver, Cady, who comes about 5 hours during weekday afternoons, but not on the weekends. The patient reports that her daughter, who lives in [place], is at her place now, and that she will stay with the patient to help take care of her , particularly on weekends. It is unclear if the daughter has agreed to this plan. When asked what the patient understood from her conversations with the physicians, she did understand that she might have cancer, and that after discharge she needs to go through further testing. She says this is what she wants to do, and that her son and LAURA caregiver will be able to help her with arranging and getting to medical appointments, and her daughter will also be there. It is unclear to how much familial support is actually available for her. During the months I have been visiting her, she has depended on the caregiver to get her to appointments, and my understanding is that there is, or was, some degree of estrangement with her daughter. The patient is extremely private and reveals very little about her family. She says if she was still feeling as bad as she did when she was admitted to hospital, she would not want to go home, but she feels better now and thinks she can handle it. Despite her saying she understands that she may have cancer, she does seem to lack insight and real comprehension, or acceptance, of the seriousness of her current condition. Social History - Living Situation Living arrangement: At home Support System: She has a LAURA caregiver for 5 hours on weekday afternoons. Her daughter lives in [place]; she also has a son on the [place]. Her sister lives in [place], and is currently in [place], expected to return in about a week. Medications/Allergies - Medications Active Medication List: Active Medications Acetaminophen (Tylenol) 650 mg PO Q4HR PRN PRN Reason: Pain 1 to 4 Albuterol () 2.5 mg INH RTQ4H PRN PRN Reason: Wheezing Last Admin: 04/23/18 02:22 Dose: 2.5 mg Albuterol/Ipratropium (Duoneb) 3 ml INH RTQID [facility] Last Admin: 04/24/18 16:00 Dose: 3 ml Alprazolam (Xanax) 0.25 mg PO Q6HR PRN PRN Reason: Anxiety Last Admin: 04/24/18 19:38 Dose: 0.25 mg Amlodipine Besylate (Norvasc) 5 mg PO DAILY [facility] Last Admin: 04/24/18 08:54 Dose: 5 mg Atorvastatin Calcium (Lipitor) 20 mg PO QPM [facility] Last Admin: 04/23/18 21:57 Dose: 20 mg Budesonide (Pulmicort) 0.5 mg INH RTBID [facility] Last Admin: 04/24/18 05:56 Dose: 0.5 mg Formoterol Fumarate (Perforomist) 20 mcg INH RTBID TERRY Last Admin: 04/24/18 05:57 Dose: 20 mcg Sodium Chloride (Normal Saline 0.9%) 1,000 mls @ 125 mls/hr IV .Q8H [facility] Last Infusion: 04/24/18 17:49 Dose: Infused Loratadine (Claritin) 10 mg PO DAILY PRN PRN Reason: Shortness of Air/Wheezing Losartan Potassium (Cozaar) 50 mg PO DAILY [facility] Last Admin: 04/24/18 08:54 Dose: 50 mg Methylprednisolone Sodium Succinate (Solu-Medrol (125mg Vial)) 125 mg IVP TID [facility] Last Admin: 04/24/18 14:18 Dose: 125 mg Morphine Sulfate (Morphine) 2 mg IVP Q2H PRN PRN Reason: PAIN/DYSPNEA/AGITATION Last Admin: 04/24/18 08:54 Dose: 2 mg Morphine Sulfate (Roxanol) 2 mg PO Q2HR PRN PRN Reason: PAIN Ondansetron HCl (Zofran Inj) 4 mg IVP Q6HR PRN PRN Reason: Nausea / Vomiting Last Admin: 04/22/18 10:12 Dose: 4 mg Ondansetron HCl (Zofran Odt) 4 mg TL Q6HR PRN PRN Reason: Nausea / Vomiting Pantoprazole Sodium (Protonix) 40 mg PO QDAC [facility] Last Admin: 04/24/18 06:27 Dose: 40 mg Polyethylene Glycol (Miralax) 17 gm PO DAILY [facility] Last Admin: 04/24/18 08:54 Dose: 17 gm Sodium Chloride (Normal Saline Flush 0.9%) 10 ml IVP PRN PRN PRN Reason: NEEDED PER PROVIDER ORDERS Last Admin: 04/24/18 14:18 Dose: 10 ml Sodium Chloride (Normal Saline Flush 0.9%) 10 ml IVP 0100,0900,1700 [facility] Last Admin: 04/24/18 18:19 Dose: Not Given Albuterol Sulfate [Proair Hfa Inhaler] 1 - 2 puffs INH Q4H PRN 08/31/16 Atorvastatin Calcium 20 mg PO QPM 08/31/16 Cholecalciferol (Vitamin D3) [Vitamin D3] 2,000 unit PO DAILY #0 06/06/17 Multivitamin [Theragran] 1 each PO DAILY #0 06/06/17 Fluticasone Propionate 1 spray PAULINE BID PRN 09/15/17 Ondansetron [Zofran Odt] 8 mg PO Q8HR PRN 09/15/17 Loratadine 10 mg PO DAILY PRN MDD 1 capsule 04/11/18 Albuterol 2.5 mg INH Q4H PRN 04/21/18 Valsartan [Diovan] 80 mg PO DAILY 04/21/18 - Allergies Allergies/Adverse Reactions: Allergies Allergy/AdvReac Type Severity Reaction Status Date / Time No Known Drug Allergies Allergy Verified 04/21/18 06:23 Review of Systems - Constitutional Constitutional: denies: Poor appetite - Ears, Nose & Throat Ears, Nose & Throat: reports: Postnasal drainage - Respiratory Respiratory: reports: SOB at rest (chronic, improved since admission, but not back to baseline), SOB with exertion - Other Findings Other Findings: Targeted ROS Physical Exam - Vital Signs Vital Signs: Vital Signs x48h Temp Pulse Pulse Resp BP Pulse Ox 04/24/18 16:00 105 H 20 04/24/18 15:31 97.9 F 103 H 18 162/82 H 97 04/24/18 13:00 98.1 F 110 H 18 176/80 H 95 - Physical Exam General Appearance: positive: Alert, Mild distress, Anxious Eyes Bilateral: positive: No lid inflammation, Conjunctivae nml, No scleral icterus ENT: positive: No signs of dehydration Cardiovascular: positive: Regular rate & rhythm, No murmur Respiratory: positive: No respiratory distress, Diminished throughout Skin: positive: No symptoms Extremities: positive: No pedal edema Neurologic/Psychiatric: positive: Oriented x3, Flat affect Palliative Care - POLST Patient has POLST: No Anxiety: Moderate (4-6) Dyspnea: Moderate (4-6) - Palliative Care Discussion: Patient verbalizes understanding that the lung nodules seen on CT scan may be cancerous and affirms that she wants to pursue further workup, and she will have enough help between her family (son and daughter) and her caregiver to stay at home and to also get help and support with medical logistics and appointments. This is very doubtful. She does not want to go to a nursing facility. She is currently not interested in comfort care. Respiratory therapists are working to get a Trilogy ventilator in her home.There is concern about patient's compliance, due to her claustrophobic feelings, and having refused bipap therapy in the past. The [email or web address] will help with set up, training, and ongoing support. If she does discharge home, I will refer her to Home Health nursing for help with medication compliance and additional oversight. She has not signed a POLST, but requested another blank copy, which I provided. She states again that she wants her sister to be her POA. The sister is currently in , will be back next week. She asked me for another blank copy of the POA form, which I will provide to her either in the hospital, or after her discharge. On a side note, the patient has been receiving support from [employer], of [employer]. I spoke to a [employer] workforce representative, and they apparently are a private company, referred through [facility]. Patient says Marcos Ding told her that [employer], her supplier for oxygen equipment and supplies is out of business, so they can use [employer] for oxygen supplies. I telephoned [facility] today, they answered the phone and said they are still in business. Results - Lab Results Fish Bones: 04/24/18 05:15 04/24/18 05:15 Lab and Imaging Results: Lab Results x24hrs 04/24/18 04/24/18 04/24/18 Range/Units 05:15 05:15 00:17 WBC 10.6 (4.8-10.8) x10^3/uL RBC 3.79 L (4.20-5.40) 10^6/uL Hgb 11.7 L (12.0-16.0) g/dL Hct 35.4 L (37.0-47.0) % MCV 93.5 (81.0-99.0) fL MCH 30.9 (27.0-31.0) pg MCHC 33.0 (32.0-36.0) g/dL RDW 13.9 (12.0-15.0) % Plt Count 296 (130-450) 10^3/uL MPV 6.1 L (7.9-10.8) fL Neut # (Auto) 9.6 H (1.5-6.6) 10^3/uL Lymph # (Auto) 0.6 L (1.5-3.5) 10^3/uL [place] # (Auto) 0.3 (0.0-1.0) 10^3/uL Eos # (Auto) 0.0 (0.0-0.7) 10^3/uL Baso # (Auto) 0.0 (0.0-0.1) 10^3/uL Absolute Nucleated RBC 0.02 x10^3/uL Nucleated RBC % 0.1 /100WBC Bld Gas Analysis Time 0022 Sample Site RIGHT BRACHIAL ABG pH 7.39 (7.35-7.45) ABG pCO2 51 H (34-45) mmHg ABG pO2 92 (80-100) mmHg ABG HCO3 30.4 H (22.0-26.0) mmol/L ABG Total CO2 32.0 H (21.0-29.0) MMOL/L ABG O2 Saturation 97 (94-98) % ABG Base Excess 4.5 H (-2.0-3.0) mmol/L Heriberto Test NOT APPLICABLE O2 Delivery Device NASAL CANNULA O2 Liters/Min 3.50 LPM Sodium 133 L (135-145) mmol/L Potassium 3.6 (3.5-5.0) mmol/L Chloride 96 L (101-111) mmol/L Carbon Dioxide 32 (21-32) mmol/L Anion Gap 5.0 L (6-13) BUN 12 (6-20) mg/dL Creatinine 0.4 (0.4-1.0) mg/dL Estimated GFR (MDRD) 159 (>89) Glucose 150 H (70-100) mg/dL Calcium 8.0 L (8.5-10.3) mg/dL Impression and Recommendations - Palliative Care Impression: A 68-year-old woman with severe end-stage COPD and pulmonary fibrosis was hospitalized for severe shortness of breath, and CT scan revealed multiple nodules throughout her lungs, highly concerning for malignancy. The patient's current plan is to pursue further workup after discharge from hospital , and she intends to discharge home, despite strong medical recommendation for a stay in halfway for safe and appropriate care. Palliative care will continue to monitor and provide support in her home or other care setting. Recommendations/Counseling Done: Neoplasm of trachea, bronchis, lung: From Dr Webb's HPI: Recommendation to follow up with a CT PET scan to stage or determine if nodules are metabolically active. Anxiety: Xanax as needed. SOA: On continuous oxygen 3L/minute. Patient is so far agreeable to starting Trilogy ventilator, with [employer] providing training and support. The following meds are started in hospital: Duonebs nebulizer, Albuterol inhaler, Pulmicort inhaler, formoterol inhaler, and morphine sulfate 2mg q2hr as needed for SOA, agitation, pain. Advanced care planning: Patient has no POLST, she asked for another blank copy today, which I put in her folder of hospital papers. She says she will have her sister sign POA documents after the sister returns from [place] next week, needs another blank copy from me which I will provide. She intends to discharge home, and then follow up on chest CAT scan. After she discharges home, refer her to Home Health Nursing for medication help and compliance, and on-going weekly support. Follow-up with palliative care visit after discharge from hospital. Time Spent: 45 minutes were spent with more than 50% of the time spent on counseling, education, and coordination of care.
[2018-04-25] MEDS: SODIUM CHLORIDE 0.9% 1,000 ML IV SCH (04:55)
[2018-04-25] MEDS: SODIUM CHLORIDE FLUSH 0.9% 10 ML SYRINGE IVP SCH ×2 (04:56→13:58)
[2018-04-25] MEDS: methylPREDNISolone SUCCINATE 125 MG/2 ML VIAL IVP SCH ×2 (05:06→13:59)
[2018-04-25 05:41] LABS: NEUTROPHILS % (AUTO) 88.5 %
[2018-04-25 05:42] LABS: CREATININE 0.6 mg/dL (0.4-1.0)
[2018-04-25 05:46] LABS: BASOPHILS % (AUTO) 0.3 %; HGB - HEMOGLOBIN 12.4 g/dL (12.0-16.0); LYMPHOCYTES % (AUTO) 8.3 %; MEAN CORPUSCULAR HEMOGLOBIN 30.3 pg (27.0-31.0); MEAN CORPUSCULAR HGB CONC 32.3 g/dL (32.0-36.0); MEAN CORPUSCULAR VOLUME 93.7 fL (81.0-99.0); MONOCYTES % (AUTO) 2.9 %; PLT - PLATELET COUNT 330 10^3/uL (130-450); RED CELL DISTRIBUTION WIDTH 13.9 % (12.0-15.0); WHITE BLOOD COUNT 10.5 x10^3/uL (4.8-10.8)
[2018-04-25 05:47] LABS: ABNORMAL LYMPHS % (MANUAL) 0 %
[2018-04-25 06:09] LABS: BAND NEUTROPHILS % (MANUAL) 2 %; DIFFERENTIAL COMMENT MANUAL DIFFERENTIAL; LYMPHOCYTES # (MANUAL) 1.2 10^3/uL (1.5-3.5); LYMPHOCYTES % (MANUAL) 11 %; MONOCYTES # (MANUAL) 0.4 10^3/uL (0.0-1.0); NEUTROPHILS # (MANUAL) 8.9 10^3/uL (1.5-6.6); NEUTROPHILS % (MANUAL) 83 %; PLATELET ESTIMATE, MANUAL NORMAL (130-450,000) (NORMAL); RBC MORPHOLOGY (MULTIPLE) NORMAL APPEARANCE (NORMAL)
[2018-04-25] MEDS: PANTOPRAZOLE 40 MG TABLET PO SCH (06:25)
[2018-04-25] MEDS ORDERED: SODIUM CHLORIDE 0.9% 1,000 ML IV SCH (07:15)
[2018-04-25] MEDS ORDERED: POTASSIUM CHLORIDE 20 MEQ TABLET PO SCH (08:00)
[2018-04-25] MEDS: FORMOTEROL FUMARATE NEB 20 MCG/2 ML INH SCH (08:15)
[2018-04-25] MEDS: BUDESONIDE 0.5 MG/2 ML NEB INH SCH (08:15)
[2018-04-25] MEDS: IPRATROPIUM/ALBUTEROL 3 ML NEB INH SCH ×2 (08:15→13:20)
[2018-04-25] MEDS: POLYETHYLENE GLYCOL 3350 17 GM PACKET PO SCH (08:51)
[2018-04-25] MEDS: amLODIPine 5 MG TABLET PO SCH (08:53)
[2018-04-25] MEDS: LOSARTAN 50 MG TABLET PO SCH (08:53)
[2018-04-25] MEDS: ALPRAZolam 0.25 MG TABLET PO PRN (09:04)
--- NOTE | 2018-04-25 10:12 | Discharge Plan ---
"Discharge Plan for SNF / [facility] - DC Plan and Transition Orders Disposition: 03 SNF DC/Xfer Condition: Serious SNF Transition Orders: Admit to: [facility] under the care of Dr. Staton Discharge Diagnosis: ES COPD, Lung nodules suspicious for cancer Medicare Certification: I certify that [facility] shelter care is medically necessary on a continuing basis for any of the conditions for which she/he is receiving care during hospitalization. Notify PCP of admission and forward orders to primary provider for signature. Weight on admission and weekly. Call PCP immediately if weight increases by 10 pounds or if patient develops dyspnea, chest pain/tightness or edema. House Bowel Program: yes If no BM after 2 days, nurse may give M.O.M. 30ml PO PRN and /or ducolax Supp 1 RI and /or PACHECO 250mg P.O., and/or senna 1-2 tabs PO. On day 3 nurse may give repeat above order until residents constipation is resolved. Immunizations: Annual Influenza Vaccine: yes. (between Jul 21 and February 17.) Unless allergy or already given Two-Step PPD: yes per [facility] [id number] or appropriate documentation of approved exceptions Oxygen Orders: 6 l/m via [place] Lab Tests or X-Rays Orders: Repeat chest CT to assess nodule growth Medications: PLEASE REFER TO THE DISCHARGE MEDICATION LIST. Insulin Orders? no Allergies and Adverse Reactions: Allergies Allergy/AdvReac Type Severity Reaction Status Date / Time No Known Drug Allergies Allergy Verified 04/21/18 06:23 - Medications New Prescriptions: Albuterol 2.5 mg INH RTQ4H PRN #180 neb PRN Reason: Wheezing amLODIPine [Norvasc] 5 mg PO DAILY #20 tablet Budesonide [Pulmicort] 0.5 mg INH RTBID #20 neb Fluticasone/Salmeterol [Advair 500-50 Diskus] 1 puffs INH BID #1 blst.w.dev Formoterol Fumarate [Perforomist] 20 mcg INH RTBID #20 neb Tiotropium [place] [Spiriva Respimat] 2 puffs INH BID #2 mist.inhal - Diet Type: No added salt Texture: [facility] soft Liquids: Thin May have monthly special meal: Yes - Therapies | Activity Rehabilitation Potential: Maximize functional status Activity: Activity as Tolerated Weight Bearing: Full Weight Extremities: TTWBLLE, TTWBRLE Assistance Devices: Wheelchair, Walker Additional Instructions: Discharge to [facility] today with hospice/palliative care. It is very important that you follow-up with a chest CAT scan in 1 month to see whether or not the nodules are getting bigger or smaller. Used the trilogFuelMiner machine as directed. Follow Up: With Kirti Phillips in 2 weeks"
[2018-04-25 15:24] VITALS: BP 172/76
== END 2018-04-25 16:02 | DRG 190 ==
LOC: EDUNIT# → ED 06:18 → OBS 10:36 → OBSVTOIN 04-22 09:17 → MS2 04-22 11:33
PROVIDERS: ADMIT Specialist; ATTEND Hospitalist
DX: J43.9 Emphysema, unspecified (principal); J96.21 Acute and chronic respiratory failure with hypoxia; E87.1 Hypo-osmolality and hyponatremia; D64.9 Anemia, unspecified; D38.1 Neoplasm of uncertain behavior of trachea, bronchus and lung; I10 Essential (primary) hypertension; J30.2 Other seasonal allergic rhinitis; F41.9 Anxiety disorder, unspecified; E66.01 Morbid (severe) obesity due to excess calories; D63.8 Anemia in other chronic diseases classified elsewhere; M72.0 Palmar fascial fibromatosis [Dupuytren]; J84.10 Pulmonary fibrosis, unspecified; F40.240 Claustrophobia; E66.9 Obesity, unspecified; Z51.5 Encounter for palliative care; Z99.81 Dependence on supplemental oxygen; Z79.899 Other long term (current) drug therapy; Z68.33 Body mass index [BMI] 33.0-33.9, adult; Z87.891 Personal history of nicotine dependence; Z79.51 Long term (current) use of inhaled steroids
CPT/HCPCS: 36415; 36600; 71046; 71260; 80048; 82270; 82378; 82607; 82728; 82803; 83540; 83615; 84466; 85025; 85044; 93005; 93306; 94640; 94761; 96361; 96365; 96375; 96376; 99233; 99284

== ENCOUNTER 2018-04-26 07:30 | Outpatient (CLI) | payer MEDICARE, MEDICAID ==
--- NOTE | 2018-04-26 10:11 | CONSULTATION NOTE ---
Palliative Care Follow Up - Referral Referring Provider: Kirti Phillips Time of Visit: 04/26/2018. 7:30-8:30 Referral setting: [facility] ([facility]) - Information Sources Records reviewed: RN notes reviewed, Previous records reviewed History/Review of Systems obtained from: Patient, Nursing Exam limitations: Clinical condition (severe SOB, difficult for patient to speak. No cognitive deficits) - History of Present Illness Update Brief HPI Update: Reserved and introverted 68-year-old woman with severe end- stage COPD and pulmonary fibrosis, and newly revealed spiculated nodules in both lungs, likely cancer but no official diagnosis yet. Patient was hospitalized 04/21/18 for severe acute on chronic shortness of breath , during the course of the hospitalization CT scan revealed multiple new pulmonary nodules spread throughout the right lung and also the lower left lobe , concerning for malignancy. -Patient was set on discharging back home, but did end up agreeing to discharge to fdc facility, and was admitted to [facility] last evening. -She is still settling in, she looks fatigued but reports that she is feeling a lot better now than when she was originally admitted, "almost" like she did prior to this respiratory crisis. That "baseline" was actually a very steadily worsening SOB. -Patient is very upset about the news delivered by the second physician she saw at the hospital, said she was told she has a year to live and follow up won't change this. We talked about this, and at this point, she is still talking about following up with Dr Kim Mishra, landscape supervisor, and that she would be able to get in prior to November. She is still thinking a lung transplant is a possibility. I did remind her that the scans showed a spread into both lungs, and that even though there is not yet an official diagnosis, it is most likely cancer. She did appear to understand that, but is dealing with the shock of this news and wants to "fight." At today's visit, with the help of the SNF SENIOR ACCOUNT REPRESENTATIVE, we did fill out the DPOA form. She assigned her sister as DPOA, and son Ronnie as backup DPOA. We discussed POLST and what it is, but she wants to wait until her son is present before filling it out, so that he is right there and can hear her say what her wishes are. The Trilogy ventilator is next to her bedside, [place] has been following up with [facility], and they will send staff to train and set up the patient. Patient's meds came in except for Symbicort; floor nurse reports she will follow up. Social History - Living Situation Living arrangement: snf (Currently at [facility], normally she lives alone in a small [facility] unit.) Living Situation: With caregiver(s) Support System: Her son, Ronnie, lives in [place], her daughter lives in [place]. Sister Tameka lives in [place] and is currently in [place]. Her cat Suzan is still in her unit, and is being taken care of/fed by caregiver Cady, her son, and her daughter. Medications/Allergies - Medications Home Medications: Ambulatory Orders Medication Instructions Recorded Confirmed Albuterol Sulfate [Proair Hfa 1 - 2 puffs INH Q4H PRN 08/31/16 04/21/18 Inhaler] Atorvastatin Calcium 20 mg PO QPM 08/31/16 04/21/18 Cholecalciferol (Vitamin D3) 2,000 unit PO DAILY #0 06/06/17 04/21/18 [Vitamin D3] Multivitamin [Theragran] 1 each PO DAILY #0 06/06/17 04/21/18 Fluticasone Propionate 1 spray PAULINE BID PRN 09/15/17 04/21/18 Ondansetron [Zofran Odt] 8 mg PO Q8HR PRN 09/15/17 04/21/18 Loratadine 10 mg PO DAILY PRN MDD 1 capsule 04/11/18 04/21/18 Albuterol 2.5 mg INH Q4H PRN 04/21/18 04/21/18 Valsartan [Diovan] 80 mg PO DAILY 04/21/18 04/21/18 Albuterol 2.5 mg INH RTQ4H PRN #180 neb 04/23/18 Fluticasone/Salmeterol [Advair 1 puffs INH BID #1 blst.w.dev 04/23/18 500-50 Diskus] Tiotropium [place] [Spiriva 2 puffs INH BID #2 mist.inhal 04/23/18 Respimat] Budesonide [Pulmicort] 0.5 mg INH RTBID #20 neb 04/24/18 Formoterol Fumarate [Perforomist] 20 mcg INH RTBID #20 neb 04/24/18 Ipratropium/Albuterol [Duoneb] 3 ml INH RTQID neb 04/24/18 amLODIPine [Norvasc] 5 mg PO DAILY #20 tablet 04/24/18 - Allergies Allergies/Adverse Reactions: Allergies Allergy/AdvReac Type Severity Reaction Status Date / Time No Known Drug Allergies Allergy Verified 04/21/18 06:23 Review of Systems - Constitutional Constitutional: reports: Fatigue, Weakness, Other (Denies pain. Feels she's improved a lot since she went to the emergency department.). denies: Night sweats - Ears, Nose & Throat Ears, Nose & Throat: reports: Nasal congestion - Cardiovascular Cardiovascular: reports: Exertional dyspnea. denies: Edema - Respiratory Respiratory: reports: Cough, SOB at rest, SOB with exertion - Musculoskeletal Musculoskeletal: reports: Transfer issues (is now able to sit up on edge of the bed by herself) - Psychiatric Psychiatric: reports: Anxiety Physical Exam - Physical Exam General Appearance: positive: Alert, Moderate distress Eyes Bilateral: positive: No lid inflammation, Conjunctivae nml, No scleral icterus, Other (puffy around eyes) Cardiovascular: positive: Regular rate & rhythm, No murmur, No gallop Respiratory: positive: Chest non-tender, Diminished throughout. negative: No respiratory distress Extremities: positive: No pedal edema Neurologic/Psychiatric: positive: Oriented x3, Flat affect Palliative Care - POLST Patient has POLST: No Anxiety: Moderate (4-6) Dyspnea: Severe (7-10) - Palliative Care Discussion: The patient at this time still wants to pursue follow up, and is still hoping to consult with the landscape supervisor. She was very shaken up and upset at the news delivered by the hospitalist, and by how it was delivered, and she is still absorbing it. She does see herself as a fighter, and wants to return home. She says that she is here at [facility] only because the outpatient rehab is currently closed down. So she is hoping for respiratory rehab. She is still hopeful of some treatment, the "bad news" is very raw, and today she needs to talk about her distress and do some venting. She does need to hold on to hope, and her fear in coming her is that she would give up and never leave. She did sign the DPOA forms, a huge step forward. Her sister Tameka is first DPOA, with her son Ronnie as back up. She wants to wait to fill out POLST until her son is present. Getting the family into one room for a conference would be especially important in this case , as the patient has not want to or is not able to "hear" the news. It may help if all the family, or at least one family member, is present. In the months I have been monitoring her, I have not met or spoken with any family member nor am aware if they visited in hospital. Impression and Recommendations - Palliative Care Impression: Noted 68-year-old [facility] last night. Chest scan revealedd widespread nodules throughout right lung and one in left lung, highly likely maligant. She has severe end-stage COPD with pulmonary fibrosis, and she was hospitalized 04/21/18 due to acute exacerbation of respiratory distress. She is now in [facility] for fdc and respiratory rehab, and is dealing with the shock of the news that she likely has cancer. She is hoping for some treatment, perhaps lung transplant. Palliative care will continue to monitor and support and the patient and the family. Recommendations/Counseling Done: COPD: SOB has improved, patient feels close to her baseline. Discharged on Advair diskus, Formoterol nebulizer solution, Pulmicort, Spiriva, Duonebs, Albuterol neb solution, ProAir respiClick. On continuous 2L oxygen. Trilogy ventilator has been delivered, Immediately will provide training and ongoing support. Chronic allergic rhinitis: Fluticasone suspension ad Loratadine capsules as needed for allergies. Constipation: On house bowel program. No opioids presently Advanced care planning: No POLST yet, the plan is to have her son, Ronnie, present when POLST is done so he can hear directly his mother's wishes. Family conference at facility to be determined. Patient hopes to follow up with pulmonology; first hospitalist has explained to her that PET scan may be first step in a workup on the nodules. She may not be a candidate for biopsy. Patient 's focus is currently on finding a treatment. She is not ready to talk comfort care or Hospice. Nalini Dejesus is available for follow up while I am out of town for 5 days. Time Spent: 60 minutes were spent with more than 50% of the time spent on counseling, education, and coordination of care.
== END 2018-04-26 07:31 | disposition home or self-care (01) ==
LOC: PC 07:30
PROVIDERS: ATTEND Nurse Practitioner
DX: Z51.5 Encounter for palliative care (principal); J44.9 Chronic obstructive pulmonary disease, unspecified; J84.10 Pulmonary fibrosis, unspecified; R91.8 Other nonspecific abnormal finding of lung field; J30.9 Allergic rhinitis, unspecified; K59.00 Constipation, unspecified; Z99.81 Dependence on supplemental oxygen; Z79.899 Other long term (current) drug therapy; Z79.51 Long term (current) use of inhaled steroids
CPT/HCPCS: 99310

== ENCOUNTER 2018-05-02 08:00 | Outpatient (CLI) | payer MEDICAID, MEDICARE, OTHER ==
[2018-05-02 22:22] LABS: CALCIUM 8.4 mg/dL (8.5-10.3); CREATININE 0.4 mg/dL (0.4-1.0)
== END 2018-05-02 08:01 | disposition home or self-care (01) ==
LOC: LAB.R 08:00
DX: R79.89 Other specified abnormal findings of blood chemistry (principal)
CPT/HCPCS: 80048

== ENCOUNTER 2018-05-11 10:20 | Outpatient (CLI) | payer MEDICARE, MEDICAID ==
--- NOTE | 2018-05-11 22:39 | CONSULTATION NOTE ---
Palliative Care Follow Up - Referral Referring Provider: DOMINGO Little Time of Visit: 05/11/2018. 10:20 - 10:50 [facility] Referral Reason: SOA, debility - Information Sources Records reviewed: RN notes reviewed, Previous records reviewed History/Review of Systems obtained from: Patient, Nursing, Other (shelter director) Exam limitations: Clinical condition (severe COPD, difficulty speaking due to chronic SOA) - History of Present Illness Update Brief HPI Update: -Reserved and introverted 68-year-old woman with severe end- stage COPD and pulmonary fibrosis, and newly revealed spiculated nodules in both lungs likely cancer but no official diagnosis yet. -Patient was hospitalized 05-07 for severe acute on chronic shortness of breath and during the course of that hospitalization a CT scan revealed multiple new pulmonary nodules spread throughout the right lung and also the lower left lobe , concerning for malignancy. -Patient was discharged 04/25/18 to Health system for rehabilitation. -She is making some progress with physical therapy and rehabilitation. -She reports SOA has much improved and she is feeling better than she did previously at home. -She does use a new Trilogy ventilator but is unable to get used to the mask, and using the mouthpiece dries out her mouth. -She will continue to use the Trilogy but so far has not noticed any improvement in her SOA. -Her oncology appointment with Dr Perkins is currently scheduled for May 29. The [facility] is trying to bring it forward to May 21. -She holds on to hope.....it may not be cancer ("there is more than one medical opinion," she is still upset at being told there is nothing that can be done), and pulmonology may be able to offer a lung transplant. Social History - Living Situation Living arrangement: long term Living Situation: With caregiver(s) (Currently at [facility] for rehabilitation and snf.) Medications/Allergies - Medications Home Medications: Ambulatory Orders Medication Instructions Recorded Confirmed Albuterol Sulfate [Proair Hfa 1 - 2 puffs INH Q4H PRN 08/31/16 05/11/18 Inhaler] Atorvastatin Calcium 20 mg PO QPM 08/31/16 05/11/18 Cholecalciferol (Vitamin D3) 2,000 unit PO DAILY #0 06/06/17 05/11/18 [Vitamin D3] Multivitamin [Theragran] 1 each PO DAILY #0 06/06/17 05/11/18 Fluticasone Propionate 1 spray PAULINE BID PRN 09/15/17 05/11/18 Ondansetron [Zofran Odt] 8 mg PO Q8HR PRN 09/15/17 05/11/18 Loratadine 10 mg PO DAILY PRN MDD 1 capsule 04/11/18 05/11/18 Valsartan [Diovan] 80 mg PO DAILY 04/21/18 05/11/18 Albuterol 2.5 mg INH RTQ4H PRN #180 neb 04/23/18 05/11/18 Fluticasone/Salmeterol [Advair 1 puffs INH BID #1 blst.w.dev 04/23/18 05/11/18 500-50 Diskus] Tiotropium [place] [Spiriva 2 puffs INH BID #2 mist.inhal 04/23/18 05/11/18 Respimat] Budesonide [Pulmicort] 0.5 mg INH RTBID #20 neb 04/24/18 05/11/18 Ipratropium/Albuterol [Duoneb] 3 ml INH RTQID neb 04/24/18 05/11/18 amLODIPine [Norvasc] 5 mg PO DAILY #20 tablet 04/24/18 05/11/18 Olopatadine HCl 1 drops OP BID 05/11/18 05/11/18 Oxymetazoline HCl [Afrin] 2 spray NS BID MDD 3 days only, 05/11/18 05/11/18 then stop Potassium Chloride 10 meq PO DAILY MDD for 7 days only 05/11/18 05/11/18 Trilogy By Mask 1 ea INH QPM 05/11/18 Weekly Weights 1 ea .WEEKLY 05/11/18 Acetaminophen 650 mg PO Q4H PRN 05/12/18 05/12/18 Lidocaine HCl/Menthol [Icy Hot 1 ea TOP .UP TO 4X DAILY PRN 05/12/18 05/12/18 4%-1% Cream] Nasal Moisturizing [place] 1 spray NS PRN PRN 05/12/18 - Allergies Allergies/Adverse Reactions: Allergies Allergy/AdvReac Type Severity Reaction Status Date / Time No Known Drug Allergies Allergy Verified 04/21/18 06:23 Review of Systems - Constitutional Constitutional: reports: Weakness, Weight stable (199.4 lbs 05/09/18. 196.4 lbs 05/01/18. Weekly weights) - Ears, Nose & Throat Ears, Nose & Throat: reports: Nasal congestion, Postnasal drainage - Cardiovascular Cardiovascular: reports: Edema (mild), Exertional dyspnea - Respiratory Respiratory: reports: SOB at rest, SOB with exertion - Gastrointestinal Gastrointestinal: denies: Constipation - Genitourinary Genitourinary: denies: Incontinence - Musculoskeletal Musculoskeletal: reports: Assistive devices (wheelchair, walker), Other (denies pain) Physical Exam - Vital Signs Temperature: 96.7 F Pulse Rate: 91 O2 Saturation: 95 (5-6L O2) Blood Pressure: 128/68 - Physical Exam General Appearance: positive: No acute distress, Alert Eyes Bilateral: positive: No lid inflammation, Conjunctivae nml, No scleral icterus ENT: positive: No signs of dehydration Neck: positive: No JVD, Trachea midline Cardiovascular: positive: Regular rate & rhythm, No murmur Respiratory: positive: Diminished in bases, Other (continual pursed lip breathing, difficulty speaking due to SOA) Abdomen: positive: Soft, Obese Skin: positive: Dryness Extremities: positive: Pedal edema (mild) Neurologic/Psychiatric: positive: Oriented x3, Flat affect Palliative Care - POLST Patient has POLST: No Pain: No pain Drowsiness/Sedation: None Dyspnea: Severe (7-10) Sleep: Sleeps well Constipation: No - Palliative Care Discussion: Patient reports electric cutter operator, Dr. Matos, called her while she has been at [facility] It is unclear if she actually spoke to him, or whether he is aware of her CT scan results. -Patient is holding on to hope: she hasn't actually received an official diagnosis of cancer, and if it comes, she holds on to the hope, for now, of a possible lung transplant. -She spoke about the possibility of 20-30 years left. -When asked what if the news is not what she hopes it to be, she responds that depends on what the news is. -Her immediate goal is to get home, and to pursue further workup with oncology and to consult with pulmonology. -Her son and daughter visit her in [facility]; her sister may still be in [place]. -Patient doesn't want to fill out POLST without at least the son present; he usually is not available during work hours because of his job, so scheduling a family is challenging. Impression and Recommendations - Palliative Care Impression: This is a 68-year-old woman with severe end-stage COPD and pulmonary fibrosis. She is currently at [facility] for rehabilitation after hospitalization for acute respiratory crisis, with newly revealed spiculated nodules in both lungs, likely cancer but no official diagnosis yet. She is due for oncology consultation with Dr Perkins May 29, hopefully it will moved forward to May 21. She is holding on to hope that, unfortunately, will be disappointed: that it's not cancer, and that she is candidate for lung cancer. Currently her goal is to get well enough to go home, and consult oncology and get a different opinion than she received in the hospital that there is nothing that can be done. Palliative care will continue to monitor and provide support. Recommendations/Counseling Done: End stage COPD, Nodules throughout lungs: Pt's on 5-6L continual O2, and Trilogy ventilator but thinks it doesn't help. Continues numerous respiratory meds: Advair/fluticasone-salmeterol, Pulmicort/budesonide, Spiriva/tiotropium, DuoNeb/ipratropium-albuterol nebulizer, albuterol nebulizer, Proair/albuterol inhaler, nasal moisturizing spray for dryness. Lung cancer: Oncology consult scheduled for May 29, aiming to push it forward to May 21, follow up with [facility]. Allergic rhinitis: Improved with Afrin 12-hour spray (limited to 3 days, then stop 3 days), olopatadine drops for eyes, fluticasone nasal spray, loratadine. Advanced care planning: No POLST yet, but DPOA is signed off. Continue support during her SNF rehab and after discharge, she wants to pursue workup with oncology and what are the options. At this time, patient is also following up with pulmonology, Dr Riggs. Follow up with the [facility] and [facility] to confirm oncology appointment: May 29 or May 21. Time Spent: 30 minutes were spent with more than 50% of the time spent on counseling, education, and coordination of care. Provided anticipatory guidance.
== END 2018-05-11 10:21 | disposition home or self-care (01) ==
LOC: PC 10:20
PROVIDERS: ATTEND Nurse Practitioner
DX: Z51.5 Encounter for palliative care (principal); J44.9 Chronic obstructive pulmonary disease, unspecified; J84.10 Pulmonary fibrosis, unspecified; R91.8 Other nonspecific abnormal finding of lung field; J30.9 Allergic rhinitis, unspecified; Z79.899 Other long term (current) drug therapy; Z79.51 Long term (current) use of inhaled steroids
CPT/HCPCS: 99309

== ENCOUNTER 2018-05-16 08:00 | Outpatient (CLI) | payer MEDICARE, MEDICAID ==
[2018-05-16 22:11] LABS: CALCIUM 8.5 mg/dL (8.5-10.3); CREATININE 0.4 mg/dL (0.4-1.0)
== END 2018-05-16 23:59 | disposition home or self-care (01) ==
LOC: LAB.R 08:00
DX: R79.89 Other specified abnormal findings of blood chemistry (principal); E87.6 Hypokalemia
CPT/HCPCS: 80048; 85025

== ENCOUNTER 2018-05-25 19:51 | Outpatient (CLI) | payer MEDICARE, MEDICAID ==
--- NOTE | 2018-05-25 20:30 | CONSULTATION NOTE ---
Palliative Care Follow Up - Referral Referring Provider: DOMINGO Reyes Time of Visit: 05/25/2018. 13:00 - 14:20 Referral setting: Home (Seen in home setting due to taxing and considerable effort required to leave the home due to significant breathlessness secondary to end-stage COPD, pulmonary fibrosis, and lung mass.) Referral Reason: Lung mass / Pal Care - Information Sources Records reviewed: Previous records reviewed History/Review of Systems obtained from: Patient, Caregiver Exam limitations: Clinical condition (severely dyspneic with any exertion, including speaking) - History of Present Illness Update Brief HPI Update: -Reserved and introverted 68-year-old woman with severe end- stage COPD and pulmonary fibrosis, and possible lung cancer. -She was hospitalized 04/21/18 for severe acute on chronic shortness of breath. CT scan revealed R upper lobe lung mass and a few subcentimeter masses bilaterally, concerning for cancer. -On 04/25/18 she was DC'd to [facility] for rehabilitation. -On 05/21/18 she was DC'd home. -On 05/16 she had a follow up consultation with oncologist Dr. Ananya Perkins who has referred her to thoracic surgery to see if the upper right lobe mass can be biopsied. -Today she is back at her apartment. She admits to fatigue and that her chronic SOA is worse than prior to her hospitalization. Her VIV caregiver, Lizzette, is taking care of her. -She has a number of medical appointments ahead of her and most of today's visit was spent with me calling and confirming each appointment. Among the patient, Lizzette the VIV caregiver, and [facility] staff there were several mistakes on their schedule of the medical appointments. I followed up with each one, and the schedule is as follows: -06/01/18 1:40pm Dr Fiona Brown, thoracic surgeon, in [place] -06/05/18 11:15am DOMINGO Reyes, follow up visit -06/13/18 1:40pm Dr Bowles, oncologist, at the [facility] -06/18/18 12:45pm [facility] for CAT Scan. It is unclear what this CAT scan is for. [phone]. -My understanding is that if she can be safely biopsied, and the mass is cancerous, she will need to have a PET Scan for staging, prior to her oncology appointment with Dr Bowles on 06/13/18. -Patient reports lorazepam in the hospital helped calm her anxiety and her SOA. She is resistant to using morphine due to the reaction she had months ago when she accidentally gave herself a 10 mg dose instead of 5mg. -She complains of intermittent back cramps. Social History - Living Situation Living arrangement: At home Support System: Her VIV caregiver is Lizzette, who is very kind and supportive of the patient. Her son Ronnie lives in [place], and her daughter also lives on [facility] , in [place]? Her sister Tameka lives in [place] or [place]; during the patient's hospitalization, the sister was in [place]. She has a cat, Jose Alberto, she is very attached to. She has assigned her sister as her DPOA. She has no POLST. Medications/Allergies - Medications Home Medications: Ambulatory Orders Medication Instructions Recorded Confirmed Albuterol Sulfate [Proair Hfa 1 - 2 puffs INH Q4H PRN 08/31/16 05/25/18 Inhaler] Atorvastatin Calcium 20 mg PO QPM 08/31/16 05/25/18 Cholecalciferol (Vitamin D3) 2,000 unit PO DAILY #0 06/06/17 05/25/18 [Vitamin D3] Multivitamin [Theragran] 1 each PO DAILY #0 06/06/17 05/25/18 Fluticasone Propionate 1 spray PAULINE BID PRN 09/15/17 05/25/18 Ondansetron [Zofran Odt] 8 mg PO Q8HR PRN 09/15/17 05/25/18 Loratadine 10 mg PO DAILY PRN MDD 1 capsule 04/11/18 05/25/18 Valsartan [Diovan] 80 mg PO DAILY 04/21/18 05/25/18 Albuterol 2.5 mg INH RTQ4H PRN #180 neb 04/23/18 05/25/18 Fluticasone/Salmeterol [Advair 1 puffs INH BID #1 blst.w.dev 04/23/18 05/25/18 500-50 Diskus] Tiotropium [place] [Spiriva 2 puffs INH BID #2 mist.inhal 04/23/18 05/25/18 Respimat] Budesonide [Pulmicort] 0.5 mg INH RTBID #20 neb 04/24/18 05/25/18 Ipratropium/Albuterol [Duoneb] 3 ml INH RTQID neb 04/24/18 05/25/18 amLODIPine [Norvasc] 5 mg PO DAILY #20 tablet 04/24/18 05/25/18 Olopatadine HCl 1 drops OP BID 05/11/18 05/25/18 Oxymetazoline HCl [Afrin] 2 spray NS BID MDD 3 days only, 05/11/18 05/25/18 then stop Trilogy By Mask 1 ea INH QPM 05/11/18 05/25/18 Acetaminophen 650 mg PO Q4H PRN 05/12/18 05/25/18 Nasal Moisturizing [place] 1 spray NS PRN PRN 05/12/18 05/25/18 - Allergies Allergies/Adverse Reactions: Allergies Allergy/AdvReac Type Severity Reaction Status Date / Time No Known Drug Allergies Allergy Verified 04/21/18 06:23 Review of Systems - Constitutional Constitutional: reports: Fatigue, Weight stable. denies: Poor appetite - Ears, Nose & Throat Ears, Nose & Throat: reports: Nasal congestion, Postnasal drainage - Cardiovascular Cardiovascular: reports: Edema (lower extremitites), Exertional dyspnea, Decr. exercise tolerance - Respiratory Respiratory: reports: Sputum production (increased phlegm since hospitalization) - Genitourinary Genitourinary: denies: Incontinence - Musculoskeletal Musculoskeletal: reports: Muscle pain (cramping in back), Assistive devices ( walker) Physical Exam - Vital Signs Temperature: 97.0 F Pulse Rate: 102 O2 Saturation: 92 (4 liters O2) Blood Pressure: 142/70 - Physical Exam General Appearance: positive: No acute distress, Alert ENT: positive: No signs of dehydration Cardiovascular: positive: Regular rate & rhythm Respiratory: positive: Diminished throughout Palliative Care - POLST Patient has POLST: No - Palliative Care Discussion: Her sister, Tameka, is her DPOA. She does not have a signed POLST and has resisted discussing it during the entire period palliative care has been supporting her. She wants to discuss it with her son present, but he works. Since she is in the process of getting a work up of the lung mass, the discussion of POLST and advanced directives is on hold. The patient presently holds on to the hope that she may be a candidate for lung transplant. She is still upset about one of the hospitalists bedside manner, and being told she is "not a candidate" for further treatment. Both she and Lizzette, the caregiver, brought this subject up again. Lizzette was present when this discussion occurred in the hospital, and her interpretation is that it felt almost like an attack, and that the doctor was at odds with the patient. The patient's response at the time was that she wanted a second opinion. Impression and Recommendations - Palliative Care Impression: Reserved and introverted 68-year-old woman with severe end- stage COPD and pulmonary fibrosis, and possible lung cancer. She was hospitalized 04/21/18 for severe acute on chronic shortness of breath. CT scan revealed R upper lobe lung mass and a few subcentimeter masses bilaterally, concerning for cancer. She is back at home, with the support of her Viv caregiver, and she plans to pursue a work up and possible treatment. Her consultation with the thoracic surgeon is next week, and her oncology appointment is at the end of May. Palliative Care will continue to monitor and provide support. Recommendations/Counseling Done: Diagnosis of lung mass: 06/01 consultation with thoracic surgeon, Dr Fiona Brown, [place], to determine if she is a candidate for biopsy. 06/13 consultation with oncology, Dr Bowles, at [facility] in [place]. A PET scan for staging would need to be done prior to the oncology appointment. There is a appointment for CT scan scheduled in [place]. Unclear what this CT scan is for. End-stage COPD and pulmonary fibrosis: She still has a December 12, 2018, appointment scheduled with Dr Kim Mishra, transmitter chief. She continues on Proair, Advair, Albuterol and Duoneb nebulizer, Spiriva Respimat, Pulmicort. Also Trilogy ventilator. Allergic rhinitis: Fluticasone proprionate BID as needed. Loratadine 10mg daily. HTN: Improved, BPs are lower. Continue Valsartan and amlodipine. She has some swelling in ankles, could be side effect of amlodipine/CCB. Advanced care planning: DPOA in place, no POLST. Patient wants to pursue the work up of the lung mass and find out what treatment options, if any, are available to her. She continues to speak of seeing the transmitter chief in November regarding a lung transplant. Follow up next week on the thoracic surgeon consultation. Time Spent: 80 minutes were spent with more than 50% of the time spent on counseling, anticipatory guidance, education, and coordination of care.
== END 2018-05-25 19:52 | disposition home or self-care (01) ==
LOC: PC 19:51
PROVIDERS: ATTEND Nurse Practitioner
DX: Z51.5 Encounter for palliative care (principal); R91.8 Other nonspecific abnormal finding of lung field; J44.9 Chronic obstructive pulmonary disease, unspecified; J84.10 Pulmonary fibrosis, unspecified; J30.9 Allergic rhinitis, unspecified; I10 Essential (primary) hypertension; M79.89 Other specified soft tissue disorders; F41.9 Anxiety disorder, unspecified; Z79.899 Other long term (current) drug therapy; Z79.51 Long term (current) use of inhaled steroids
CPT/HCPCS: 99350

== ENCOUNTER 2018-06-19 00:41 | Outpatient (CLI) | payer MEDICARE, MEDICAID | END 2018-06-19 00:42 | disposition critical access hospital (66) | LOC: EMS 00:41 | PROVIDERS: ATTEND Surgery | DX: R06.00 Dyspnea, unspecified (principal); R05 Cough | CPT/HCPCS: A0425; A0429 ==

== ENCOUNTER 2018-06-19 00:58 | Emergency (ER) | payer MEDICARE, MEDICAID ==
--- NOTE | 2018-06-19 01:40 | ED Physician Documentation ---
PD HPI DYSPNEA - Stated complaint Stated Complaint: SOA - Chief complaint Chief Complaint: Resp - History obtained from History obtained from: Patient - History of Present Illness Timing - onset: How many days ago (2-3) Timing - duration: Days Timing - details: Gradual onset, Waxing and waning Pain level now: 0 Improved by: Rest Worsened by: Exertion Associated symptoms: No: Fever, Cough Similar symptoms before: Diagnosis (COPD) Recently seen: Admitted (admitted last month [facility] for COPD exacerbation) - Additional information Additional information: c/o few days of dyspnea. 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: Other : None HEENT: None Psych: Anxiety Musculoskeletal: Osteoarthritis Derm: None - Past Surgical History Past Surgical History: No General: Cholecystectomy HEENT: Tonsil/Adenoidectomy - Present Medications Home Medications: Ambulatory Orders Medication Instructions Recorded Confirmed Albuterol Sulfate [Proair Hfa 1 - 2 puffs INH Q4H PRN 08/31/16 06/20/18 Inhaler] Atorvastatin Calcium 20 mg PO QPM 08/31/16 06/20/18 Cholecalciferol (Vitamin D3) 2,000 unit PO DAILY #0 06/06/17 06/20/18 [Vitamin D3] Multivitamin [Theragran] 1 each PO DAILY #0 06/06/17 06/20/18 Fluticasone Propionate 1 spray PAULINE BID PRN 09/15/17 06/20/18 Ondansetron [Zofran Odt] 8 mg PO Q8HR PRN 09/15/17 06/20/18 Loratadine 10 mg PO DAILY PRN MDD 1 capsule 04/11/18 06/20/18 Valsartan [Diovan] 80 mg PO DAILY 04/21/18 06/20/18 Albuterol 2.5 mg INH RTQ4H PRN #180 neb 04/23/18 06/20/18 Fluticasone/Salmeterol [Advair 1 puffs INH BID #1 blst.w.dev 04/23/18 06/20/18 500-50 Diskus] Ipratropium/Albuterol [Duoneb] 3 ml INH RTQID neb 04/24/18 06/20/18 amLODIPine [Norvasc] 5 mg PO DAILY #20 tablet 04/24/18 06/20/18 Olopatadine HCl 1 drops OP BID 05/11/18 06/20/18 Trilogy By Mask 1 ea INH QPM 05/11/18 06/20/18 Nasal Moisturizing [place] 1 spray NS PRN PRN 05/12/18 06/20/18 Azithromycin [Zithromax] 250 mg PO DAILY #4 tablet 06/19/18 06/20/18 predniSONE [Deltasone] 20 mg PO [id number] #21 tab 06/19/18 06/20/18 Furosemide 20 mg PO DAILY MDD for 7 days 06/20/18 06/20/18 LORazepam [Ativan] 0.5 mg PO Q6HR PRN 06/20/18 06/20/18 Morphine Sulfate [Morphine Sulf 5 mg PO Q4HR PRN 06/20/18 06/20/18 Oral (Roxanol)] Omeprazole 20 mg PO DAILY 06/20/18 06/20/18 Polyethylene Glycol 3350 [Miralax] 17 gm PO DAILY PRN 06/20/18 06/20/18 Potassium Chloride 10 meq PO DAILY MDD for 7 days 06/20/18 06/20/18 - Allergies Allergies/Adverse Reactions: Allergies Allergy/AdvReac Type Severity Reaction Status Date / Time No Known Drug Allergies Allergy Verified 06/19/18 01:15 - Social History Does the pt smoke?: No Smoking Status: Never smoker Does the pt drink ETOH?: Yes Does the pt have substance abuse?: No - Immunizations Immunizations are current?: No Immunizations: TDAP >10years/unknown - POLST Patient has POLST: No POLST Status: Full Code Results - Vitals Vitals: Oxygen O2 Source Room air Oxygen Flow Rate 4 - Labs Labs: Laboratory Tests 06/19/18 06/19/18 06/19/18 01:44 01:44 01:44 WBC 7.5 RBC 3.71 L Hgb 11.6 L Hct 34.8 L MCV 93.6 MCH 31.4 H MCHC 33.5 RDW 13.8 Plt Count 301 MPV 6.1 L Neut # (Auto) 4.8 Lymph # (Auto) 1.6 [place] # (Auto) 0.8 Eos # (Auto) 0.2 Baso # (Auto) 0.0 Absolute Nucleated RBC 0.00 Nucleated RBC % 0.0 Sodium 134 L Potassium 4.2 Chloride 93 L Carbon Dioxide 34 H Anion Gap 7.0 BUN 11 Creatinine 0.5 Estimated GFR (MDRD) 123 Glucose 118 H Calcium 8.8 Total Bilirubin 0.7 AST 18 ALT 14 Alkaline Phosphatase 68 Troponin I < 0.04 B-Natriuretic Peptide Total Protein 7.0 Albumin 3.5 Globulin 3.5 Albumin/Globulin Ratio 1.0 Lipase 28 TSH 06/19/18 06/19/18 01:44 01:44 WBC RBC Hgb Hct MCV MCH MCHC RDW Plt Count MPV Neut # (Auto) Lymph # (Auto) [place] # (Auto) Eos # (Auto) Baso # (Auto) Absolute Nucleated RBC Nucleated RBC % Sodium Potassium Chloride Carbon Dioxide Anion Gap BUN Creatinine Estimated GFR (MDRD) Glucose Calcium Total Bilirubin AST ALT Alkaline Phosphatase Troponin I B-Natriuretic Peptide 33 Total Protein Albumin Globulin Albumin/Globulin Ratio Lipase TSH 1.96 PD MEDICAL DECISION MAKING - ED course Complexity details: reviewed old records, reviewed results, re-evaluated patient , considered differential, d/w patient ED course: On multiple reevaluations, patient consistently had much difficulty deciding if she was close enough to her baseline dyspnea to be discharged home. She says she wouldn't be able to get a ride until noon, anyway. Patient continued to be unsure regarding her level of comfort with being discharged and I signed the case out to Dr. Garcia 7 AM pending patient arranging for ride home or else deciding she is more symptomatic than her baseline to the point of not being comfortable with d/c home. - Sepsis Event Vital Signs: Oxygen O2 Source Room air Oxygen Flow Rate 4 Departure - Departure Disposition: 01 Home, Self Care Clinical Impression: COPD exacerbation Condition: Fair Instructions: ED COPD Flare Follow-Up: Kirti Phillips EMBOSSING MACHINE OPERATOR HELPER [Primary Care Provider] - (tomorrow for a recheck) Prescriptions: Azithromycin [Zithromax] 250 mg PO DAILY #4 tablet predniSONE [Deltasone] 20 mg PO [id number] #21 tab Comments: As we discussed I think you should have been admitted but you insisted that admission would not help and that your lungs dont get any better than this So we are letting you go home - you do have oxygen nebulizers and caregivers so that is reassuring at least Continue your home oxygen as before Use albuterol via your nebulizer or MDI every 4 hr for the next three days, then as previously prescribed take the antibiotics as prescribed - if you still have zofran for vomiting at home do not take that with zithromax because they interact. Take the steroids as prescribed Follow up with your PMD tomorrow for a recheck If you get worse in any way, do not hesitate you use your Lifeline and call an ambulance to come back - we are not mad and want to take good care of you Discharge Date/Time: 06/19/18 10:58
[2018-06-19 02:23] LABS: BASOPHILS % (AUTO) 0.7 %; EOSINOPHILS # (AUTO) 0.2 10^3/uL (0.0-0.7); EOSINOPHILS % (AUTO) 2.9 %; HGB - HEMOGLOBIN 11.6 g/dL (12.0-16.0); LYMPHOCYTES # (AUTO) 1.6 10^3/uL (1.5-3.5); LYMPHOCYTES % (AUTO) 21.3 %; MEAN CORPUSCULAR HEMOGLOBIN 31.4 pg (27.0-31.0); MEAN CORPUSCULAR HGB CONC 33.5 g/dL (32.0-36.0); MEAN CORPUSCULAR VOLUME 93.6 fL (81.0-99.0); MEAN PLATELET VOLUME 6.1 fL (7.9-10.8); MONOCYTES # (AUTO) 0.8 10^3/uL (0.0-1.0); MONOCYTES % (AUTO) 11.2 %; NEUTROPHILS # (AUTO) 4.8 10^3/uL (1.5-6.6); NEUTROPHILS % (AUTO) 63.9 %; PLT - PLATELET COUNT 301 10^3/uL (130-450); RED BLOOD COUNT 3.71 10^6/uL (4.20-5.40); RED CELL DISTRIBUTION WIDTH 13.8 % (12.0-15.0); WHITE BLOOD COUNT 7.5 x10^3/uL (4.8-10.8)
[2018-06-19] MEDS ORDERED: DEXAMETHASONE 10 MG/ML VIAL IVP STA (02:24)
[2018-06-19 02:42] LABS: ALBUMIN 3.5 g/dL (3.2-5.5); BILIRUBIN,TOTAL 0.7 mg/dL (0.2-1.0); CALCIUM 8.8 mg/dL (8.5-10.3); CREATININE 0.5 mg/dL (0.4-1.0)
--- NOTE | 2018-06-19 02:59 | XRAY Report ---
Procedure Date: 06/19/2018 Accession Number: [id number] / [id number] Procedure: XR - Chest 2 View X-Ray CPT Code: 56763 FULL RESULT: EXAM: CHEST RADIOGRAPHY EXAM DATE: 06/19/2018 02:46 AM. CLINICAL HISTORY: Dyspnea. COMPARISON: CHEST 2 VIEW 04/21/2018. TECHNIQUE: 2 views. FINDINGS: Lungs/Pleura: Emphysema. Scarring again seen. Right upper lobe nodular opacity is unchanged. No new alveolar consolidation or pleural effusion seen. No pneumothorax. Mediastinum: Heart size is normal. Aortic atherosclerosis. Other: Osteopenia. IMPRESSION: 1. Emphysema and scarring. 2. Right upper lobe nodular opacity is unchanged from the prior exam. 3. No new abnormality seen. RADIA
[2018-06-19] MEDS ORDERED: IPRATROPIUM/ALBUTEROL 3 ML NEB INH STA (04:47)
[2018-06-19] MEDS ORDERED: LEVALBUTEROL 1.25 MG/3 ML NEB INH STA (06:32)
--- NOTE | 2018-06-19 07:30 | ED Physician Documentation ---
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 dependent presented with soa for several days cough was tight and diminished upon arrival given steroids and nebs CXR neg for infection labs show elev CO2 I went to see pt at 0730 she says she has hx COPD not CAD or CHF has been sick with cough recently and inc SOA using her neb usual 5 X daily but also MDI for rescue on home O2 occ brief episodes of CP lasting just seconds new monae foot swelling no travel has been admitted several times for similar sx Review of Systems Constitutional: denies: Fever Cardiac: reports: Chest pain / pressure (brief) Respiratory: reports: Dyspnea, Cough, Wheezing GI: denies: Abdominal Pain, Nausea, Vomiting Musculoskeletal: reports: Extremity swelling Neurologic: denies: Generalized weakness Endocrine: denies: Easy bruising / bleeding Immunocompromised: denies: Immunocompromised PD PAST MEDICAL HISTORY - Past Medical History Past Medical History: Yes Cardiovascular: Hypertension Respiratory: COPD, Other Endocrine/Autoimmune: None GI: Cholelithiasis 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: Other : None HEENT: None Psych: Anxiety Musculoskeletal: Osteoarthritis Derm: None - Past Surgical History Past Surgical History: No General: Cholecystectomy HEENT: Tonsil/Adenoidectomy - Present Medications Home Medications: Ambulatory Orders Medication Instructions Recorded Confirmed Albuterol Sulfate [Proair Hfa 1 - 2 puffs INH Q4H PRN 08/31/16 06/19/18 Inhaler] Atorvastatin Calcium 20 mg PO QPM 08/31/16 06/19/18 Cholecalciferol (Vitamin D3) 2,000 unit PO DAILY #0 06/06/17 06/19/18 [Vitamin D3] Multivitamin [Theragran] 1 each PO DAILY #0 06/06/17 06/19/18 Fluticasone Propionate 1 spray PAULINE BID PRN 09/15/17 06/19/18 Ondansetron [Zofran Odt] 8 mg PO Q8HR PRN 09/15/17 06/19/18 Loratadine 10 mg PO DAILY PRN MDD 1 capsule 04/11/18 06/19/18 Valsartan [Diovan] 80 mg PO DAILY 04/21/18 06/19/18 Albuterol 2.5 mg INH RTQ4H PRN #180 neb 04/23/18 06/19/18 Fluticasone/Salmeterol [Advair 1 puffs INH BID #1 blst.w.dev 04/23/18 06/19/18 500-50 Diskus] Ipratropium/Albuterol [Duoneb] 3 ml INH RTQID neb 04/24/18 06/19/18 amLODIPine [Norvasc] 5 mg PO DAILY #20 tablet 04/24/18 06/19/18 Olopatadine HCl 1 drops OP BID 05/11/18 06/19/18 Oxymetazoline HCl [Afrin] 2 spray NS BID MDD 3 days only, 05/11/18 06/19/18 then stop Trilogy By Mask 1 ea INH QPM 05/11/18 06/19/18 Nasal Moisturizing [place] 1 spray NS PRN PRN 05/12/18 06/19/18 Azithromycin [Zithromax] 250 mg PO DAILY #4 tablet 06/19/18 predniSONE [Deltasone] 20 mg PO [id number] #21 tab 06/19/18 - Allergies Allergies/Adverse Reactions: Allergies Allergy/AdvReac Type Severity Reaction Status Date / Time No Known Drug Allergies Allergy Verified 06/19/18 01:15 - Social History Does the pt smoke?: No Smoking Status: Never smoker Does the pt drink ETOH?: Yes Does the pt have substance abuse?: No - Immunizations Immunizations are current?: No Immunizations: TDAP >10years/unknown - POLST Patient has POLST: No POLST Status: Full Code PD ED PE NORMAL - Vitals Vital signs reviewed: Yes - General General: Alert and oriented X 3 - Cardiac Cardiac: RRR - Respiratory Respiratory: Other (decreased monae with faint wheezing) - Abdomen Abdomen: Soft, Non tender - Derm Derm: Normal color - Extremities Extremities: Other (mod monae symm ankle and feet swelling with TTP) - Neuro Neuro: Alert and oriented X 3 Results - Vitals Vitals: Vital Signs - 24 hr 06/19/18 06/19/18 06/19/18 01:00 04:59 07:14 Temperature 36.3 C L Heart Rate 96 90 96 Respiratory 24 18 20 Rate Blood Pressure 120/65 O2 Saturation 100 06/19/18 06/19/18 06/19/18 07:45 08:19 10:13 Temperature Heart Rate 94 97 115 H Respiratory 20 19 24 Rate Blood Pressure 115/52 L 118/51 L O2 Saturation 96 97 06/19/18 10:48 Temperature 37.1 C Heart Rate 109 H Respiratory 20 Rate Blood Pressure 127/71 O2 Saturation 100 Oxygen O2 Source Room air Oxygen Flow Rate 4 - EKG (time done) 0110 Rate: Rate (enter#) (95) Rhythm: NSR [place]: Normal Intervals: No: Normal [place] (little short) Ischemia: Normal ST segments - Labs Labs: Laboratory Tests 06/19/18 06/19/18 06/19/18 01:44 01:44 01:44 WBC 7.5 RBC 3.71 L Hgb 11.6 L Hct 34.8 L MCV 93.6 MCH 31.4 H MCHC 33.5 RDW 13.8 Plt Count 301 MPV 6.1 L Neut # (Auto) 4.8 Lymph # (Auto) 1.6 [place] # (Auto) 0.8 Eos # (Auto) 0.2 Baso # (Auto) 0.0 Absolute Nucleated RBC 0.00 Nucleated RBC % 0.0 Sodium 134 L Potassium 4.2 Chloride 93 L Carbon Dioxide 34 H Anion Gap 7.0 BUN 11 Creatinine 0.5 Estimated GFR (MDRD) 123 Glucose 118 H Calcium 8.8 Total Bilirubin 0.7 AST 18 ALT 14 Alkaline Phosphatase 68 Troponin I < 0.04 B-Natriuretic Peptide Total Protein 7.0 Albumin 3.5 Globulin 3.5 Albumin/Globulin Ratio 1.0 Lipase 28 TSH 06/19/18 06/19/18 01:44 01:44 WBC RBC Hgb Hct MCV MCH MCHC RDW Plt Count MPV Neut # (Auto) Lymph # (Auto) [place] # (Auto) Eos # (Auto) Baso # (Auto) Absolute Nucleated RBC Nucleated RBC % Sodium Potassium Chloride Carbon Dioxide Anion Gap BUN Creatinine Estimated GFR (MDRD) Glucose Calcium Total Bilirubin AST ALT Alkaline Phosphatase Troponin I B-Natriuretic Peptide 33 Total Protein Albumin Globulin Albumin/Globulin Ratio Lipase TSH 1.96 - Rads (name of study) CXR Radiology: See rad report (emphysema scarring unchanged noduel, no acute process ) PD MEDICAL DECISION MAKING - ED course ED course: after numerous nebs and steroids pt is feeling better on exam she is still wheezing but she states this is her baseline and she has been discharged tighter than this and is unlikely to get any better and does not feel she needs admit we tried road testing her on her usual 4 L - not hypoxic but only able to go about 20 ft before needing to rest and HR > 100, she states this is normal for her and she does not walk that far at home and linus sits on her walker seat I think she should be admitted she insists on going home I had her daughter try to convince her as well - she still wants to go home suggested COW - she still wants to go home she has O2 nebs MDI caregivers etc at home so will dc but expect she will need to return - Sepsis Event Vital Signs: Vital Signs - 24 hr 06/19/18 06/19/18 06/19/18 01:00 04:59 07:14 Temperature 36.3 C L Heart Rate 96 90 96 Respiratory 24 18 20 Rate Blood Pressure 120/65 O2 Saturation 100 06/19/18 06/19/18 06/19/18 07:45 08:19 10:13 Temperature Heart Rate 94 97 115 H Respiratory 20 19 24 Rate Blood Pressure 115/52 L 118/51 L O2 Saturation 96 97 06/19/18 10:48 Temperature 37.1 C Heart Rate 109 H Respiratory 20 Rate Blood Pressure 127/71 O2 Saturation 100 Oxygen O2 Source Room air Oxygen Flow Rate 4 Departure - Departure Disposition: 01 Home, Self Care Clinical Impression: COPD exacerbation Condition: Fair Instructions: ED COPD Flare Follow-Up: Kirti Phillips ARNP [Primary Care Provider] - (tomorrow for a recheck) Prescriptions: Azithromycin [Zithromax] 250 mg PO DAILY #4 tablet predniSONE [Deltasone] 20 mg PO [id number] #[id number] tab Comments: As we discussed I think you should have been admitted but you insisted that admission would not help and that your lungs dont get any better than this So we are letting you go home - you do have oxygen nebulizers and caregivers so that is reassuring at least Continue your home oxygen as before Use albuterol via your nebulizer or MDI every 4 hr for the next three days, then as previously prescribed take the antibiotics as prescribed - if you still have zofran for vomiting at home do not take that with zithromax because they interact. Take the steroids as prescribed Follow up with your PMD tomorrow for a recheck If you get worse in any way, do not hesitate you use your Lifeline and call an ambulance to come back - we are not mad and want to take good care of you Discharge Date/Time: 06/19/18 10:58
[2018-06-19] MEDS ORDERED: ALBUTEROL NEB 2.5 MG/3 ML INH STA (07:48)
[2018-06-19] MEDS ORDERED: AZITHROMYCIN 250 MG TABLET PO STA (09:19)
[2018-06-19 10:49] VITALS: BP 127/71
== END 2018-06-19 10:58 | disposition home or self-care (01) ==
LOC: EDUNIT# → SUPCPDRO 00:58 → ED 00:58
DX: J44.1 Chronic obstructive pulmonary disease with (acute) exacerbation (principal); I10 Essential (primary) hypertension; Z99.81 Dependence on supplemental oxygen; M19.90 Unspecified osteoarthritis, unspecified site
CPT/HCPCS: 36415; 71046; 80053; 83690; 83880; 84443; 84484; 85025; 93005; 94640; 94664; 99283; 99284; A9270

== ENCOUNTER 2018-06-20 15:30 | Outpatient (CLI) | payer MEDICARE, MEDICAID ==
--- NOTE | 2018-06-20 19:42 | CONSULTATION NOTE ---
Palliative Care Follow Up - Referral Referring Provider: Kirti LANE Time of Visit: [id number] Referral setting: Home (It is a taxing and considerable effort for the patient to leave the home secondary to severe dyspnea and fatigue) Referral Reason: COPD Exacerbation/Lung Mass/Medication adherence - Information Sources Records reviewed: Previous records reviewed History/Review of Systems obtained from: Patient, Caregiver (Lizzette participated in visit at end) Exam limitations: Clinical condition (patient easily overwhelmed; difficulty tracking and some health literacy concerns noted) - History of Present Illness Update Brief HPI Update: This is a 68-year-old woman with severe end-stage COPD, pulmonary fibrosis, pulmonary hypertension, and probable lung cancer. She was recently hospitalized for severe severe shortness of breath in April at which point the CT scan did reveal a right upper lobe mass and multiple nodules, suspicious lymph nodes. Given her frail status, she was unable to undergo a biopsy. She is due to have a PET scan and MRI for staging next week, and unfortunately had a urgent visit to the ED for an exacerbation of her COPD and has been started on Zithromax and prednisone. Given patient's frail status, and often difficulty with medication adherence, and concern for patient as she had refused hospital admission, a home visit is made today. Clarified medication regimen, set up Mediset's, patient had multiple appointments set, follow-up and canceled CAT scan on Monday as unnecessary it was via her radio producer Dr. Riggs after contacting their office it is not needed, given her other schedule tests. She also presents with shortness of breath, though improved from yesterday, is still quite limiting and she has very poor activity tolerance. She also presents with increased lower extremity edema up to knees, and is feeling somewhat overwhelmed. Social History - Living Situation Living arrangement: At home Living Situation: Alone (has excellent [employer] worker Lizzette [phone] who is helping patient navigate her current situation; Daughter has not been in contact does not currently have a phone) Medications/Allergies - Medications Home Medications: Ambulatory Orders Medication Instructions Recorded Confirmed Albuterol Sulfate [Proair Hfa 1 - 2 puffs INH Q4H PRN 08/31/16 06/20/18 Inhaler] Atorvastatin Calcium 20 mg PO QPM 08/31/16 06/20/18 Cholecalciferol (Vitamin D3) 2,000 unit PO DAILY #0 06/06/17 06/20/18 [Vitamin D3] Multivitamin [Theragran] 1 each PO DAILY #0 06/06/17 06/20/18 Fluticasone Propionate 1 spray PAULINE BID PRN 09/15/17 06/20/18 Ondansetron [Zofran Odt] 8 mg PO Q8HR PRN 09/15/17 06/20/18 Loratadine 10 mg PO DAILY PRN MDD 1 capsule 04/11/18 06/20/18 Valsartan [Diovan] 80 mg PO DAILY 04/21/18 06/20/18 Albuterol 2.5 mg INH RTQ4H PRN #180 neb 04/23/18 06/20/18 Fluticasone/Salmeterol [Advair 1 puffs INH BID #1 blst.w.dev 04/23/18 06/20/18 500-50 Diskus] Ipratropium/Albuterol [Duoneb] 3 ml INH RTQID neb 04/24/18 06/20/18 amLODIPine [Norvasc] 5 mg PO DAILY #20 tablet 04/24/18 06/20/18 Olopatadine HCl 1 drops OP BID 05/11/18 06/20/18 Trilogy By Mask 1 ea INH QPM 05/11/18 06/20/18 Nasal Moisturizing [place] 1 spray NS PRN PRN 05/12/18 06/20/18 Azithromycin [Zithromax] 250 mg PO DAILY #4 tablet 06/19/18 06/20/18 predniSONE [Deltasone] 20 mg PO [id number] #21 tab 06/19/18 06/20/18 Furosemide 20 mg PO DAILY MDD for 7 days 06/20/18 06/20/18 LORazepam [Ativan] 0.5 mg PO Q6HR PRN 06/20/18 06/20/18 Morphine Sulfate [Morphine Sulf 5 mg PO Q4HR PRN 06/20/18 06/20/18 Oral (Roxanol)] Omeprazole 20 mg PO DAILY 06/20/18 06/20/18 Polyethylene Glycol 3350 [Miralax] 17 gm PO DAILY PRN 06/20/18 06/20/18 Potassium Chloride 10 meq PO DAILY MDD for 7 days 06/20/18 06/20/18 - Allergies Allergies/Adverse Reactions: Allergies Allergy/AdvReac Type Severity Reaction Status Date / Time No Known Drug Allergies Allergy Verified 06/19/18 01:15 Review of Systems - Constitutional Constitutional: reports: Fatigue, Weakness. denies: Fever - Ears, Nose & Throat Ears, Nose & Throat: reports: Dry mouth - Cardiovascular Cardiovascular: reports: Exertional dyspnea, Decr. exercise tolerance, Orthopnea. denies: Chest pain - Respiratory Respiratory: reports: Sputum production (reports prior to ED trip had "black sputum" ? if hemoptysis; has not change to creamy yellow), Orthopnea, SOB at rest, SOB with exertion - Gastrointestinal Gastrointestinal: reports: Constipation, Early satiety (reports eats less but has been weight neutral) - Genitourinary Genitourinary: reports: Frequency - Musculoskeletal Musculoskeletal: reports: Muscle weakness, Joint pain (severe arthritis in hands and shoulders), Assistive devices (uses walker with freq rests secondary to breathlessness) - Integumentary Integumentary: reports: Dryness, Nail changes (thickened toe nails; needing trimming has lost phone number) - Neurological Neurological: reports: General weakness, Memory problems - Psychiatric Psychiatric: reports: Anxiety - Endocrine Endocrine: reports: Hypothyroidism, Intolerance to heat - Hematologic/Lymphatic Hematologic/Lymphatic: reports: Anemia (HCT 34.8%) - All Other Systems All Other Systems: reports: Reviewed and negative Physical Exam - Vital Signs Temperature: 97.6 C Pulse Rate: 112 Respiratory Rate: 28 O2 Saturation: 97 (4 liters) Blood Pressure: 134/62 - Physical Exam General Appearance: positive: Mild distress (continues with respiratory effort though reports is improved from ED visit; and close to baseline), Anxious Eyes Bilateral: positive: Normal inspection ENT: positive: No signs of dehydration Neck: positive: No JVD, Trachea midline Cardiovascular: positive: Tachycardia Respiratory: positive: Diminished throughout. negative: Wheezes, Rales, Rhonchi Abdomen: positive: Soft, Nml bowel sounds, Distended (upper abdomen) Skin: positive: Dryness Extremities: positive: Pedal edema (pitting pedal edema up to knees; tender on exam unable to wear support hose; reports has increased over the last couple of weeks) Neurologic/Psychiatric: positive: Oriented x3, Mood/affect nml, Weakness, Other (very engaged and participatory today in follow up; many questions) Palliative Care - POLST Patient has POLST: No Pain: Location (c/o pain in hands; now with swelling in her feet; and bilateral shoulder pain; has intermittent cramping and spasms uses topical gel with good relief; new copper gloves for arthritis in hands feels it is helping; reviewed may get some relief with prednisone) Tiredness/Fatigue: Severe (7-10) Drowsiness/Sedation: Mild (1-3) Nausea: None Depression: Mild (1-3) Anxiety: Moderate (4-6) Dyspnea: Severe (7-10) (has to pace self through conversation) Anorexia: Mild (1-3) Sleep: Variable sleep pattern (sleeping upright in recliner; to hard to get to bedroom) Constipation: Yes, Intermittent constipation Performance Status: Patient has limited her activities since discharge from [facility], she has not had that endurance to bath, and is only ambulating few feet to bathroom, often with rest periods using walker. Unable to tolerate being in bed with needing frequent nebulizers. Has been stressed with needing to get out for appointments. PPS 40% - Palliative Care Discussion: When asked patient if she is worried, she reports "sort of". She is finding Lizzette very supportive, she helps manage her appointments and navigating for follow-up. Patient has very little insight into her current seriousness of her illness, feels most safe in her own environment. She continuing to try and sort and organize her "things". Easily overwhelmed and tends to get immobilized and complicated situations. Results - Lab Results Lab results reviewed: Yes Impression and Recommendations - Palliative Care Impression: Patient 68 year old woman seen in ED for COPD exacerbation yesterday with most likely lung cancer. Patient getting work up and staging, but continues to be quite fragile with increasing dyspnea, poor activity tolerance, limited social support and little insight to the seriousness of her illness. Palliative care providing support and oversight to help with coordination of care and symptom management. Recommendations/Counseling Done: 1. COPD exacerbation. Does feel better, received AB/and treatment in ED. Had been recommended for admit, patient worries about her cat ERKEL, and doesn't feel she gets rest or better when hospitalized. Patient compromised with very poor activity tolerance, is taking AB, reviewed prednisone and taper. Patient newly on trilogy, cannot tolerate mask because feels claustrophobic, using mouth piece about 2-3 hours total but does feel better when uses. Recently brought her nasal fixture, encourage to try and work into, recommended using at night if possible, and to increase her time on hand machine if unable to 4-6 hours. Using duoneb 4 x a day and more often, using albuterol inhaler 4-5 times a day every time she gets up, encourage to try morphine instead as adding to her tachycardia. Patient dislikes taste, inst. does not need to take straight, can use in small amount of juice, but would benefit particularly in preparation for activity i.e. bathing, needing to leave the home for appointments, has used successfully in past reminded her. Reviewed the dosing and calibration, able to show me. 2. Lung mass, presumed cancer. Patient with PET scan and MRI brain next week 06/28 with follow up with Dr. Bowles 07/18. Had CT scan this Monday which did not make sense, follow up from Dr. Carmichael radio producer, called office and reviewed work up plans, cancelled at [facility]. Patient relieved as leaving the home is very difficult at this time. Initiated conversation to set stage for purpose of scans/MRI reason to look at brain. Patient anxious but addressed questions, will continue with coaching around work up /treatment decisions etc. REviewed with Lizzette and patient recommendation to premedicate with lorazepam or morphine prior to be able to lay flat and still for long periods. 3. LE edema. Started on Furosemide 20 mg with K 10 MEQ/medications in home from past episodes of treating the same. Put one weeks worth in medication box. Inst. when comfortable to start wearing support hose again, patient sits in recliner all day with legs dependent. 4. Medication adherence. Went through drug box, through out old prescriptions, filled box for week, updated list in home and marked ones in box with X. Put label for prn nausea medication/anxiety. Counseling related to indications and use. 5. Constipation. Counseling to restart Miralax, unable to locate RX. Called in to [facility] for delivery. 6. Activity intolerance. Encouraged to allow Lizzette to assist with bathing, has not been able to tolerate any activity since discharge from [facility], has shower chair. Counseling regarding energy conservation and safety. Appts very difficult at this time for patient to leave the house, will send note to Kirti if this visit is sufficient for ED follow up, can follow up again in 1-2 weeks given patient fragile status. Time Spent: 75 minutes with greater than 50% done in counseling regarding disease and medication management, coordination of care regarding follow up and with caregiver, and anticipatory guidance
== END 2018-06-20 15:31 | disposition home or self-care (01) ==
LOC: PC 15:30
PROVIDERS: ATTEND Nurse Practitioner Adult Health
DX: Z51.5 Encounter for palliative care (principal); J44.9 Chronic obstructive pulmonary disease, unspecified; R91.8 Other nonspecific abnormal finding of lung field; R60.0 Localized edema; K59.00 Constipation, unspecified; J84.10 Pulmonary fibrosis, unspecified; M62.81 Muscle weakness (generalized); F32.9 Major depressive disorder, single episode, unspecified; F41.9 Anxiety disorder, unspecified
CPT/HCPCS: 99350

== ENCOUNTER 2018-07-03 16:18 | Outpatient (CLI) | payer MEDICARE, MEDICAID ==
--- NOTE | 2018-07-03 17:28 | CONSULTATION NOTE ---
Palliative Care Follow Up - Referral Referring Provider: DOMINGO Reyes Time of Visit: 07/03/2018. 12:20 -13:05 Referral setting: Home (Seen in home setting due to taxing and considerable effort required to leave the home due to significant breathlessness secondary to end-stage COPD, pulmonary fibrosis, and lung mass) Referral Reason: End Stage COPD/Lung mass - Information Sources Records reviewed: Previous records reviewed History/Review of Systems obtained from: Patient, Caregiver Exam limitations: Clinical condition (significant SOA) - History of Present Illness Update Brief HPI Update: -Reserved and introverted 68-year-old woman with severe end- stage COPD and pulmonary fibrosis, pulmonary hypertension, and probable lung cancer. -She was hospitalized 04/21/18 for severe acute on chronic shortness of breath. CT scan did reveal a right upper lobe mass and multiple nodules and suspicious lymph nodes, concerning for cancer. -Then on 06/19/18 she had an urgent visit to the ED for an exacerbation of her COPD and was treated with Zithromax and prednisone. -She had a PET scan and MRI for staging last week. She has an oncology appointment with Dr Bowles on 07/18. -She believes she still has a November [address] Cyrus Tinoco of [facility]. -Her SOA is at baseline, a lower baseline than previous to her April 2018 hospitalization. Sheis using her respiraoty medications, she says they all help somewhat. She uses Trilogy only a few times a day for a very short duration, to "catch my breath." -She admits to using the albuterol inhaler too often, she is vague about how often. -She has been encouraged to use morphine regularly, especially as albuterol raises her heart rate. She is vague about how often she uses it, but eventually says twice a day. I cannot verify this. -She uses the nebulizer 4x/day. -She said Dr Fiona Brown called Lizzette, the caregiver, on Monday with the PET scan results, which the doctor called "confusing." Th R side wasn't as bad as anticipated, whereas the L side had 2 lymph nodes light up; this could e infecgtion of inflammation. -Dr Brown will present this at her tumor board. The MRI results had not come in yet. -Her bilateral LE are edematous, she did not notice any improvement with lasix and compression hose, however, it is unclear if she was compliant; she had a 7- day dosage and there were still some pills left this week. Her caregiver was off for a few days, on those days she did not put on the compression stockings since she is unable to put them on without aid. -She has chronic sinus congestion and difficulty coughing up phlegm. Social History - Living Situation Living arrangement: At home Living Situation: Alone, With caregiver(s) Support System: Lizzette is her caregiver. Currently works 5 hours daily 5 days/week, she will change to 3 hours daily for 6 days/week. the extra hours will go to driving the patient to appointments. Medications/Allergies - Medications Home Medications: Ambulatory Orders Medication Instructions Recorded Confirmed Albuterol Sulfate [Proair Hfa 1 - 2 puffs INH Q4H PRN 08/31/16 06/20/18 Inhaler] Atorvastatin Calcium 20 mg PO QPM 08/31/16 06/20/18 Cholecalciferol (Vitamin D3) 2,000 unit PO DAILY #0 06/06/17 06/20/18 [Vitamin D3] Multivitamin [Theragran] 1 each PO DAILY #0 06/06/17 06/20/18 Fluticasone Propionate 1 spray PAULINE BID PRN 09/15/17 06/20/18 Ondansetron [Zofran Odt] 8 mg PO Q8HR PRN 09/15/17 06/20/18 Loratadine 10 mg PO DAILY PRN MDD 1 capsule 04/11/18 06/20/18 Valsartan [Diovan] 80 mg PO DAILY 04/21/18 06/20/18 Albuterol 2.5 mg INH RTQ4H PRN #180 neb 04/23/18 06/20/18 Fluticasone/Salmeterol [Advair 1 puffs INH BID #1 blst.w.dev 04/23/18 06/20/18 500-50 Diskus] Ipratropium/Albuterol [Duoneb] 3 ml INH RTQID neb 04/24/18 06/20/18 amLODIPine [Norvasc] 5 mg PO DAILY #20 tablet 04/24/18 06/20/18 Olopatadine HCl 1 drops OP BID 05/11/18 06/20/18 Trilogy By Mask 1 ea INH QPM 05/11/18 06/20/18 Nasal Moisturizing [place] 1 spray NS PRN PRN 05/12/18 06/20/18 Furosemide 20 mg PO DAILY MDD for 7 days 06/20/18 06/20/18 LORazepam [Ativan] 0.5 mg PO Q6HR PRN 06/20/18 06/20/18 Morphine Sulfate [Morphine Sulf 5 mg PO Q4HR PRN 06/20/18 06/20/18 Oral (Roxanol)] Omeprazole 20 mg PO DAILY 06/20/18 06/20/18 Polyethylene Glycol 3350 [Miralax] 17 gm PO DAILY PRN 06/20/18 06/20/18 Potassium Chloride 10 meq PO DAILY MDD for 7 days 06/20/18 06/20/18 Guaifenesin [Tussin] 5 - 10 ml PO Q4H PRN 07/03/18 07/03/18 - Allergies Allergies/Adverse Reactions: Allergies Allergy/AdvReac Type Severity Reaction Status Date / Time No Known Drug Allergies Allergy Verified 06/19/18 01:15 Review of Systems - Constitutional Constitutional: reports: Fatigue, Weight gain (with prednisone). denies: Poor appetite - Ears, Nose & Throat Ears, Nose & Throat: reports: Postnasal drainage, Other (chronic sinus issues) - Cardiovascular Cardiovascular: reports: Exertional dyspnea, Decr. exercise tolerance - Respiratory Respiratory: reports: Cough, Sputum production, SOB at rest, SOB with exertion Physical Exam - Vital Signs Temperature: 96.9 F Pulse Rate: 92 O2 Saturation: 99 Blood Pressure: 148/62 - Physical Exam General Appearance: positive: No acute distress, Alert, Other (constant pursed lip breathing) Eyes Bilateral: positive: No lid inflammation, Conjunctivae nml, No scleral icterus ENT: positive: No signs of dehydration Cardiovascular: positive: Regular rate & rhythm Respiratory: positive: Chest non-tender, Diminished throughout, Other ( accessory respiratory muscle usage) Extremities: positive: Pedal edema (2+) Neurologic/Psychiatric: positive: Oriented x3 Palliative Care - POLST Patient has POLST: No Dyspnea: Comment (at new, lower baseline) - Palliative Care Discussion: Lizzette continues to provide consistent support and help organizing her life and her medical appointments. Patient continues to have issues and challenges with organizing, understanding her disease process. The caregiver spoke with the thoracic surgeon, who apparently found tuan PET scan confusing, and will present it at tumor board. MRI results had not come back yet. Caregiver will make sure patient gets to her 07/18 oncology appointment in [place] with Dr Bowles. Impression and Recommendations - Palliative Care Impression: Patient recently hospitalized for COPD exacerbation, scan showed most likely lung cancer, and she had a second COPD exacerbation. She is in the process of obtaining workup, staging and follow up with oncology,and she continues to have significant dyspnea and poor insight into the seriousness of her illness. Her [employer]UR[employer] caregiver is her main source of support. Palliative care will continue to provide oversight and support to help with the coordination of care and symptom management. Recommendations/Counseling Done: End Stage COPD: Stabilized since last exacerbation and ED visit 06/19/18. Uses nebulizer routinely daily, is less compliant with morphine and Trilogy. Admits to using albuterol "probably too much." Continue to encourage her to use morphine regularly and cut down albuterol usage. Lung mass, presumed cancer: PET scan and MRI done last week. Patient and caregiver report she found results "confusing." Follow up with Dr Brown to get copy of reports. She has 07/18/[address] Bowles in oncology. Her caregiver will take her there and take notes. She still believes she has a follow up consultation with carton lettering machine operator, Dr Kim Mishra in November; this [place] have been [place] by [place] [facility] Chronic sinusitis: Continue fluticasone and loratadine daily for symptom relief. Increased phlegm: Start guaifenesin solution, 100mg/5mL. Give 5-10 ml (100-200 mg) every 4 hours as needed for excess phlegm/cough. Hang nail: She requested information on the valve seater operator who made house calls and accepted medicaid insurance. This person no longer provides that service; left a voicemail for patient explaining that; she will need to see the interlocking installer in [place]. LE edema: Completed 1 week Lasix course. Patient noted no improvement; unclear how compliant she was. Advanced care planning: No POLST, patient is reluctant to discuss this issue. She did assign her sister as DPOA, POA papers have been signed. Time Spent: 45 minutes were spent with more than 50% of the time spent on counseling, anticipatory guidance, education, and coordination of care.
== END 2018-07-03 16:19 | disposition home or self-care (01) ==
LOC: PC 16:18
PROVIDERS: ATTEND Nurse Practitioner
DX: Z51.5 Encounter for palliative care (principal); J44.9 Chronic obstructive pulmonary disease, unspecified; R91.8 Other nonspecific abnormal finding of lung field; R60.0 Localized edema; J84.10 Pulmonary fibrosis, unspecified; Z91.14 Patient's other noncompliance with medication regimen; R05 Cough

== ENCOUNTER 2018-07-12 11:30 | Outpatient (CLI) | payer MEDICARE, MEDICAID ==
--- NOTE | 2018-07-12 17:01 | CONSULTATION NOTE ---
Palliative Care Follow Up - Referral Referring Provider: DOMINGO Reyes Time of Visit: 07/12/2018. 11:30 - 11:55 Referral setting: Home Referral Reason: Increased edema - Information Sources Records reviewed: Previous records reviewed History/Review of Systems obtained from: Patient, Caregiver Exam limitations: Clinical condition (difficulty speaking due to chronic SOA) - History of Present Illness Update Brief HPI Update: -Reserved and introverted 68-year-old woman with severe end- stage COPD and pulmonary fibrosis, pulmonary hypertension, and probable lung cancer. -She was hospitalized 04/21/18 for severe acute on chronic shortness of breath. CT scan did reveal a right upper lobe mass and multiple nodules and suspicious lymph nodes, concerning for cancer. -Subsequent PET scan and MRI on 06/28/18 were inconclusive for cancer (there was no brain mets), and the patient is not a candidate for a biopsy. -06/19/18 patient went to ED for COPD exacerbation, treated with Zithromax and prednisone. -She has an oncology appointment with Dr Bowles on 07/18. I spoke with Dr Bowles who said the PET scan is inconclusive but they can't do a biopsy on her due to the advanced lung disease preventing her from undergoing anesthesia. The plan is to monitor and follow up in 3 months. -The patient believes she still has a November 2017 consultation with food equipment service technician Dr Cyrus Tinoco of [facility], this was likely cancelled by the [facility]. -Caregiver Lizzette contacted palliative care because patient has had increasing lower extremity edema since her hospitalization and ED visit, especially in LEs but some in the hands, and also in the face and neck. Patient denies cough but SOA is worse, which could be the lung disease. Patient attributes it to her sinuses. -She said the previous furosemide for one week didn't help the edema, but it is unclear how compliant she was. -Patient reports SOA is worse since her hospital and rehab stay in April and May. She is using the nebulizer 4-5x per day, Trilogy respirator 3-4x per day and morphine solution 3-4x per day. -She is less mobile and has to rest more frequently. Her [employer] spring encaser obtained a new wheelchair for her. -She has been constipated. Provided education on opioid-induced constipation. Social History - Living Situation Living arrangement: At home Living Situation: Alone, With caregiver(s) Support System: Lizzette, her LAURA caregiver, is an enormous support for her, is her advocate, and coordinates and drives her to her medical appointments. It is unclear how closely her son and daughter are involved in her life. They don't seem to be involved in her care. She has assigned her sister as her DPOA. Medications/Allergies - Medications Home Medications: Ambulatory Orders Medication Instructions Recorded Confirmed Albuterol Sulfate [Proair Hfa 1 - 2 puffs INH Q4H PRN 08/31/16 06/20/18 Inhaler] Atorvastatin Calcium 20 mg PO QPM 08/31/16 06/20/18 Cholecalciferol (Vitamin D3) 2,000 unit PO DAILY #0 06/06/17 06/20/18 [Vitamin D3] Multivitamin [Theragran] 1 each PO DAILY #0 06/06/17 06/20/18 Fluticasone Propionate 1 spray PAULINE BID PRN 09/15/17 06/20/18 Ondansetron [Zofran Odt] 8 mg PO Q8HR PRN 09/15/17 06/20/18 Loratadine 10 mg PO DAILY PRN MDD 1 capsule 04/11/18 06/20/18 Valsartan [Diovan] 80 mg PO DAILY 04/21/18 06/20/18 Albuterol 2.5 mg INH RTQ4H PRN #180 neb 04/23/18 06/20/18 Fluticasone/Salmeterol [Advair 1 puffs INH BID #1 blst.w.dev 04/23/18 06/20/18 500-50 Diskus] Ipratropium/Albuterol [Duoneb] 3 ml INH RTQID neb 04/24/18 06/20/18 Olopatadine HCl 1 drops OP BID 05/11/18 06/20/18 Trilogy By Mask 1 ea INH QPM 05/11/18 06/20/18 Nasal Moisturizing [place] 1 spray NS PRN PRN 05/12/18 06/20/18 Furosemide 20 mg PO DAILY MDD for 14 days 06/20/18 06/20/18 LORazepam [Ativan] 0.5 mg PO Q6HR PRN 06/20/18 06/20/18 Morphine Sulfate [Morphine Sulf 5 mg PO Q4HR PRN 06/20/18 06/20/18 Oral (Roxanol)] Omeprazole 20 mg PO DAILY 06/20/18 06/20/18 Polyethylene Glycol 3350 [Miralax] 17 gm PO DAILY PRN 06/20/18 06/20/18 Potassium Chloride 10 meq PO DAILY MDD for 14 days 06/20/18 06/20/18 Guaifenesin [Tussin] 5 - 10 ml PO Q4H PRN 07/03/18 07/03/18 - Allergies Allergies/Adverse Reactions: Allergies Allergy/AdvReac Type Severity Reaction Status Date / Time No Known Drug Allergies Allergy Verified 06/19/18 01:15 Review of Systems - Constitutional Constitutional: reports: Weakness, Weight gain (edema. She doesn't have a scale) - Ears, Nose & Throat Ears, Nose & Throat: reports: Nasal congestion, Postnasal drainage - Cardiovascular Cardiovascular: reports: Edema, Exertional dyspnea, Decr. exercise tolerance. denies: Palpitations, Chest pain - Respiratory Respiratory: reports: SOB at rest, SOB with exertion - Gastrointestinal Gastrointestinal: reports: Constipation - Genitourinary Genitourinary: reports: Incontinence - Musculoskeletal Musculoskeletal: reports: Assistive devices (new wheelchair from [employer]. also uses walker) - Integumentary Integumentary: reports: Pigment changes (darkened skin on dorsal surface of bilateral feet) Physical Exam - Vital Signs Temperature: 96.8 F Pulse Rate: 102 O2 Saturation: 94 (2L O2) Blood Pressure: 150/62 - Physical Exam General Appearance: positive: No acute distress, Alert Eyes Bilateral: positive: No lid inflammation, Conjunctivae nml, No scleral icterus ENT: positive: Other (mild puffiness in face) Neck: positive: Trachea midline Cardiovascular: positive: Regular rate & rhythm, No murmur Respiratory: positive: Chest non-tender, Diminished throughout Skin: positive: Dryness Extremities: positive: Pedal edema (+3), Other (skin of lower extremities tender to palpation when edematous areas are pressed) Neurologic/Psychiatric: positive: Oriented x3, Flat affect Palliative Care - POLST Patient has POLST: No Constipation: Yes, Opoid induced Performance Status: Declining functionality due to worsening SOA. Still ambulatory, but must sit and rest on walker after ambulating only a few feet. - Palliative Care Discussion: Patient has done the work up and will meet with the oncologist on 07/18. She is expecting to have a consultation with the food equipment service technician Dr Kim Mishra in [facility], [phone], in November, but it is unclear at this point whether this appointment will take place. I spoke with Dr Bowles on 07/11/18, the PET scan is inconclusive, a biopsy is required for a definite cancer diagnosis, but this patient is not a candidate for a biopsy due to her inability to undergo anesthesia due to end stage lung disease. Dr Bolwes proposes a follow up PET scan in 3 months. Impression and Recommendations - Palliative Care Impression: Patient with worsening COPD, recurrent COPD exacerbations. Seen today for worsening edema of lower extremities. On 06/28/18 she had workup (PET scan and MRI) which were inconclusive. She is not a candidate for biopsy, she has an oncology appointment on 07/[address] Bowles who will propose follow up in 3 months. Patient continues to have significant dyspnea and she has poor insight into the seriousness of her illness. Her LAURA caregiver is her main source of support. Palliative care will continue to provide oversight and support to help with the coordination of care and symptom management. Recommendations/Counseling Done: End Stage COPD: SOA now at lower baseline since ED visit and prior hospitalization for COPD exacerbations in April and May. Uses nebulizer 4-5x daily, Trilogy 3-4x daily and liquid morphine 5mg 3-4x daily. Continues on 24- hr Oxygen 2L Lung mass, presumed cancer: PET scan and MRI done 06/28, scan results were inconclusive, MRI showed no mets to brain. I spoke with oncologist Dr Bowles, who will see her 07/18/18 the plan is to follow up with another PET scan in 3 months. Patient still plans on seeing food equipment service technician, Dr Kim Mishra in November ; this might have been cancelled by the [facility]. Chronic sinusitis: Continue fluticasone. Wrote new script for loratadine daily PRN since she was out. LE edema: Worsening since her hospitalization for COPD exacerbation. She previously had one week of furosemide 20mg but it was unclear how compliant she was. Start furosemide 20mg again x 2 weeks and potassium chloride 10meq daily x 2 weeks. Her amlodipine pills are nearly finished, I will not renew this script right now -- amlodipine can cause LE swelling. HTN: BP 150/62 today, HR 102. Did not renew amlodipine 5mg today due to edema in lower extremities; she is out of pills. Renewed valsartan 80mg script started by Dr Staton in [facility]. Advanced care planning: No POLST. She signed POA documents specifying her sister in [place] as her POA. Time Spent: 25 minutes were spent with more than 50% of the time spent on counseling, education, and coordination of care.
== END 2018-07-12 11:31 | disposition home or self-care (01) ==
LOC: PC 11:30
PROVIDERS: ATTEND Nurse Practitioner
DX: Z51.5 Encounter for palliative care (principal); J44.9 Chronic obstructive pulmonary disease, unspecified; R91.8 Other nonspecific abnormal finding of lung field; R60.0 Localized edema; J32.9 Chronic sinusitis, unspecified; I10 Essential (primary) hypertension; J84.10 Pulmonary fibrosis, unspecified; K59.03 Drug induced constipation; T40.2X5A Adverse effect of other opioids, initial encounter
CPT/HCPCS: 99348

== ENCOUNTER 2018-07-18 00:16 | Outpatient (CLI) | payer MEDICARE, MEDICAID | END 2018-07-18 00:17 | disposition critical access hospital (66) | LOC: EMS 00:16 | PROVIDERS: ATTEND Surgery | DX: R06.00 Dyspnea, unspecified (principal); M79.89 Other specified soft tissue disorders | CPT/HCPCS: A0425; A0427 ==

== ENCOUNTER 2018-07-18 00:33 | Inpatient (IN) | payer MEDICARE, MEDICAID ==
[2018-07-18] MEDS ORDERED: ALBUTEROL NEB 2.5 MG/3 ML INH ONE (00:37)
[2018-07-18] MEDS ORDERED: methylPREDNISolone SUCCINATE 125 MG/2 ML VIAL IVP STA (00:40)
[2018-07-18] MEDS ORDERED: TERBUTALINE 1 MG/ML VIAL SUBQ ONE (01:02)
[2018-07-18] MEDS ORDERED: MAGNESIUM SULFATE 2 GRAM 2 GM/50 ML BAG IV ONE (01:02)
[2018-07-18] MEDS ORDERED: LEVALBUTEROL 1.25 MG/3 ML NEB INH ONE (01:02)
[2018-07-18 01:05] LABS: BASOPHILS # (AUTO) 0.1 10^3/uL (0.0-0.1); BASOPHILS % (AUTO) 0.7 %; EOSINOPHILS # (AUTO) 0.2 10^3/uL (0.0-0.7); EOSINOPHILS % (AUTO) 2.2 %; HGB - HEMOGLOBIN 12.1 g/dL (12.0-16.0); LYMPHOCYTES # (AUTO) 1.8 10^3/uL (1.5-3.5); LYMPHOCYTES % (AUTO) 24.5 %; MEAN CORPUSCULAR HEMOGLOBIN 31.3 pg (27.0-31.0); MEAN CORPUSCULAR HGB CONC 34.4 g/dL (32.0-36.0); MEAN CORPUSCULAR VOLUME 91.2 fL (81.0-99.0); MEAN PLATELET VOLUME 5.9 fL (7.9-10.8); MONOCYTES # (AUTO) 0.8 10^3/uL (0.0-1.0); MONOCYTES % (AUTO) 11.2 %; NEUTROPHILS # (AUTO) 4.4 10^3/uL (1.5-6.6); NEUTROPHILS % (AUTO) 61.4 %; PLT - PLATELET COUNT 405 10^3/uL (130-450); RED BLOOD COUNT 3.87 10^6/uL (4.20-5.40); RED CELL DISTRIBUTION WIDTH 14.1 % (12.0-15.0); WHITE BLOOD COUNT 7.2 x10^3/uL (4.8-10.8)
[2018-07-18] MEDS ORDERED: ALBUTEROL NEB 2.5 MG/3 ML INH STA (01:12)
[2018-07-18 01:13] LABS: ALBUMIN 3.8 g/dL (3.2-5.5); ALBUMIN/GLOBULIN RATIO 1.1 (1.0-2.2); BILIRUBIN,TOTAL 0.7 mg/dL (0.2-1.0); CALCIUM 8.8 mg/dL (8.5-10.3); CREATININE 0.6 mg/dL (0.4-1.0); TOTAL PROTEIN 7.4 g/dL (6.7-8.2)
[2018-07-18] MEDS ORDERED: LEVALBUTEROL 1.25 MG/3 ML NEB INH STA (01:13)
--- NOTE | 2018-07-18 01:23 | XRAY Report ---
Reason: hypoxia Procedure Date: 07/18/2018 Accession Number: [id number] / [id number] Procedure: XR - Chest 1 View X-Ray CPT Code: 99857 FULL RESULT: EXAM: CHEST RADIOGRAPHY EXAM DATE: 07/18/2018 01:03 AM. CLINICAL HISTORY: Hypoxia COMPARISON: CHEST 2 VIEW 06/19/2018 CHEST W/ 04/21/2018 9:29 AM. TECHNIQUE: 1 view. FINDINGS: Lungs/Pleura: Extensive emphysematous changes are present. Left basilar consolidation and patchy right upper lobe airspace disease. No effusion or pneumothorax. Mediastinum: Within exam limitations, the cardiomediastinal contour is normal. Other: None. IMPRESSION: Bilateral infiltrates, superimposed upon extensive emphysema. RADIA
[2018-07-18] MEDS ORDERED: levoFLOXacin 750 MG/150 ML 750 MG/150 ML BAG IV STA (02:40)
[2018-07-18] MEDS ORDERED: cefTRIAXone 1 GM in SODIUM CHLORIDE 0.9% MINIBAG 100 ML IV STA (02:40)
--- NOTE | 2018-07-18 02:41 | ED Physician Documentation ---
PD HPI DYSPNEA - Stated complaint Stated Complaint: SOA - Chief complaint Chief Complaint: Resp - History obtained from History obtained from: Patient, EMS - History of Present Illness Timing - onset: Today, Chronic Timing - details: Gradual onset, Still present Inciting event(s): URI Improved by: O2, Inhaler/neb Associated symptoms: Cough, Wheezing. No: Fever, Chest pain / discomfort Similar symptoms before: Work up / diagnostics, Treatment Recently seen: Not recently seen - Additional information Additional information: Patient is a 68 year old female with a history of pulmonary fibrosis, severe copd who is presenting to the emergency department for shortness of breath. Patient states that for the last few months she has had worsening shortness of breath. Patient is on 4 liters home oxygen. and likely has terminal disease but has not made end of life decisions. patient called ems tonight for worsening shortness of breath. Patient was hypoxic on their arrival but had mild improvement with duoneb treatment enroute. Review of Systems Constitutional: denies: Fever, Chills Eyes: reports: Reviewed and negative Nose: denies: Congestion, Sinus pressure / pain Cardiac: denies: Chest pain / pressure, Palpitations Respiratory: reports: Dyspnea, Cough, Wheezing GI: denies: Nausea, Vomiting : denies: Dysuria, Frequency Skin: reports: Rash. denies: Lesions Musculoskeletal: reports: Extremity pain, Extremity swelling Immunocompromised: denies: Immunocompromised PD PAST MEDICAL HISTORY - Past Medical History Cardiovascular: Hypertension Respiratory: COPD, Other Endocrine/Autoimmune: None GI: Cholelithiasis COMMERCIAL ENGINEER: Other : None HEENT: None Psych: Anxiety Musculoskeletal: Osteoarthritis Derm: None - Past Surgical History Past Surgical History: No General: Cholecystectomy HEENT: Tonsil/Adenoidectomy - Present Medications Home Medications: Ambulatory Orders Medication Instructions Recorded Confirmed Albuterol Sulfate [Proair Hfa 1 - 2 puffs INH Q4H PRN 08/31/16 06/20/18 Inhaler] Atorvastatin Calcium 20 mg PO QPM 08/31/16 06/20/18 Cholecalciferol (Vitamin D3) 2,000 unit PO DAILY #0 06/06/17 06/20/18 [Vitamin D3] Multivitamin [Theragran] 1 each PO DAILY #0 06/06/17 06/20/18 Fluticasone Propionate 1 spray PAULINE BID PRN 09/15/17 06/20/18 Ondansetron [Zofran Odt] 8 mg PO Q8HR PRN 09/15/17 06/20/18 Loratadine 10 mg PO DAILY PRN MDD 1 capsule 04/11/18 06/20/18 Valsartan [Diovan] 80 mg PO DAILY 04/21/18 06/20/18 Albuterol 2.5 mg INH RTQ4H PRN #180 neb 04/23/18 06/20/18 Fluticasone/Salmeterol [Advair 1 puffs INH BID #1 blst.w.dev 04/23/18 06/20/18 500-50 Diskus] Ipratropium/Albuterol [Duoneb] 3 ml INH RTQID neb 04/24/18 06/20/18 Olopatadine HCl 1 drops OP BID 05/11/18 06/20/18 Trilogy By Mask 1 ea INH QPM 05/11/18 06/20/18 Nasal Moisturizing [place] 1 spray NS PRN PRN 05/12/18 06/20/18 Furosemide 20 mg PO DAILY MDD for 14 days 06/20/18 06/20/18 LORazepam [Ativan] 0.5 mg PO Q6HR PRN 06/20/18 06/20/18 Morphine Sulfate [Morphine Sulf 5 mg PO Q4HR PRN 06/20/18 06/20/18 Oral (Roxanol)] Omeprazole 20 mg PO DAILY 06/20/18 06/20/18 Polyethylene Glycol 3350 [Miralax] 17 gm PO DAILY PRN 06/20/18 06/20/18 Potassium Chloride 10 meq PO DAILY MDD for 14 days 06/20/18 06/20/18 Guaifenesin [Tussin] 5 - 10 ml PO Q4H PRN 07/03/18 07/03/18 Levofloxacin [Levaquin] 750 mg PO DAILY #4 tablet 07/18/18 predniSONE [Prednisone] 40 mg PO DAILY 5 Days tablet 07/18/18 - Allergies Allergies/Adverse Reactions: Allergies Allergy/AdvReac Type Severity Reaction Status Date / Time No Known Drug Allergies Allergy Verified 07/18/18 00:42 - Social History Does the pt smoke?: No Smoking Status: Never smoker Does the pt drink ETOH?: Yes Does the pt have substance abuse?: No - Immunizations Immunizations are current?: No Immunizations: TDAP >10years/unknown - POLST Patient has POLST: No POLST Status: Full Code PD ED PE NORMAL - Vitals Vital signs reviewed: Yes - General General: Alert and oriented X 3 - Neck Neck: No JVD - Neuro Neuro: Alert and oriented X 3 Eye Opening: Spontaneous PD ED PE EXPANDED - General General: In distress - Cardiac Cardiac: Tachy - Respiratory Respiratory: Labored, Accessory mm use, Wheezing, Decreased breath sounds - Extremities Extremities: Pedal edema bilateral Results - Vitals Vitals: Vital Signs - 24 hr 07/18/18 07/18/18 07/18/18 00:37 00:38 00:53 Temperature 36.8 C Heart Rate 121 H 114 H 118 H Respiratory 26 H 19 21 Rate Blood Pressure 146/80 H 146/80 H O2 Saturation 96 100 07/18/18 07/18/18 07/18/18 01:00 01:13 02:00 Temperature Heart Rate 112 H 113 H 104 H Respiratory 20 14 28 H Rate Blood Pressure 138/61 H 114/51 L O2 Saturation 95 94 07/18/18 03:00 Temperature Heart Rate 104 H Respiratory 22 Rate Blood Pressure 130/61 O2 Saturation 95 Oxygen O2 Source Nasal cannula Oxygen Flow Rate 6 - Labs Labs: Laboratory Tests 07/18/18 07/18/18 07/18/18 00:50 00:50 00:50 WBC 7.2 RBC 3.87 L Hgb 12.1 Hct 35.2 L MCV 91.2 MCH 31.3 H MCHC 34.4 RDW 14.1 Plt Count 405 MPV 5.9 L Neut # (Auto) 4.4 Lymph # (Auto) 1.8 O'Brien # (Auto) 0.8 Eos # (Auto) 0.2 Baso # (Auto) 0.1 Absolute Nucleated RBC 0.00 Nucleated RBC % 0.0 Sodium 136 Potassium 4.1 Chloride 92 L Carbon Dioxide 35 H Anion Gap 9.0 BUN 11 Creatinine 0.6 Estimated GFR (MDRD) 99 Glucose 114 H Calcium 8.8 Total Bilirubin 0.7 AST 17 ALT 13 Alkaline Phosphatase 87 Troponin I < 0.04 B-Natriuretic Peptide Total Protein 7.4 Albumin 3.8 Globulin 3.6 Albumin/Globulin Ratio 1.1 Lipase 27 07/18/18 00:50 WBC RBC Hgb Hct MCV MCH MCHC RDW Plt Count MPV Neut # (Auto) Lymph # (Auto) O'Brien # (Auto) Eos # (Auto) Baso # (Auto) Absolute Nucleated RBC Nucleated RBC % Sodium Potassium Chloride Carbon Dioxide Anion Gap BUN Creatinine Estimated GFR (MDRD) Glucose Calcium Total Bilirubin AST ALT Alkaline Phosphatase Troponin I B-Natriuretic Peptide 32 Total Protein Albumin Globulin Albumin/Globulin Ratio Lipase - Rads (name of study) chest x-ray Radiology: Final report received (bilateral patchy infiltrates ) PD MEDICAL DECISION MAKING - ED course Complexity details: reviewed old records, reviewed results, re-evaluated patient , considered differential, d/w patient, d/w business sales consultant ED course: Patient was immediately seen and examined at bedside. patient was treated with three additional breathing treatments as she had pursed lips breathing and accessory muscle use. Iv access was gained, labs were drawn. ekg was performed and showed sinus tach. Patient was treated with solumedrol, magnesium and terbutaline. after the breathing treatments patient's breathing did improve. Chest x-ray was performed and showed bilateral infiltrates. While patient was feeling better and oxygenating at her baseline patient did meet inpatient admission requirements. Hospitalist was consulted and the case was discussed with her. After discussing with the hospitalist the patient stated that she wanted to go home and did not want to be admitted. Patient was treated with rocephin and levaquin and was stable for discharge with close outpatient follow up. - Sepsis Event Vital Signs: Vital Signs - 24 hr 07/18/18 07/18/18 07/18/18 00:37 00:38 00:53 Temperature 36.8 C Heart Rate 121 H 114 H 118 H Respiratory 26 H 19 21 Rate Blood Pressure 146/80 H 146/80 H O2 Saturation 96 100 07/18/18 07/18/18 07/18/18 01:00 01:13 02:00 Temperature Heart Rate 112 H 113 H 104 H Respiratory 20 14 28 H Rate Blood Pressure 138/61 H 114/51 L O2 Saturation 95 94 07/18/18 03:00 Temperature Heart Rate 104 H Respiratory 22 Rate Blood Pressure 130/61 O2 Saturation 95 Oxygen O2 Source Nasal cannula Oxygen Flow Rate 6 Departure - Departure Disposition: 01 Home, Self Care Clinical Impression: Severe chronic obstructive pulmonary disease, Pneumonia Condition: Stable Instructions: COPD Dc, ED Pneumonia Adult Follow-Up: Gruenwald,Kirti S, SHERIFF OFFICER [Primary Care Provider] - Tomorrow Prescriptions: Levofloxacin [Levaquin] 750 mg PO DAILY #4 tablet predniSONE [Prednisone] 40 mg PO DAILY 5 Days tablet Comments: Your symptoms today are being caused by pneumonia and copd exacerbation. While I understand that you want to go home it is important that you return to the emergency department if your symptoms worsen. You will be on a short course of antibiotics and steroids and it is important that you take your entire course of medications.
[2018-07-18] MEDS ORDERED: oxyCODONE 5 MG TABLET PO PRN (05:33)
[2018-07-18] MEDS ORDERED: ONDANSETRON 4 MG/2 ML VIAL IVP PRN (05:33)
[2018-07-18] MEDS ORDERED: ONDANSETRON ODT 4 MG TABLET TL PRN (05:33)
[2018-07-18] MEDS ORDERED: ACETAMINOPHEN 325 MG TABLET PO PRN (05:33)
[2018-07-18] MEDS ORDERED: LORazepam 0.5 MG TABLET PO PRN (05:36)
[2018-07-18] MEDS ORDERED: MORPHINE SOL 10 MG/0.5 ML SYRINGE PO PRN (05:36)
[2018-07-18] MEDS ORDERED: FLUTICASONE NASAL SPRAY NAS PRN (05:36)
--- NOTE | 2018-07-18 05:44 | HISTORY & PHYSICAL EXAMINATION ---
Chief Complaint - Chief Complaint Chief Complaint: acute on chronic sob History of Present Illness - Admitted From Admitted From:: ER/Home - History Obtained From Records Reviewed: [facility] History obtained from: patient Exam Limitations: none - History of Present Illness HPI Comment/Other: she is a patient who was here in April,. At discharge the review of her stay showed: 1. Chronic obstructive pulmonary disease with acute exacerbation, improved but the pt is still SIGNIFICANTLY debilitated, however pt was refusing rehab placement and says she has family members in town who will help her at home. Once her in home care provider came, she was convinced to go to rehab for SNF and she was there for a while. While there she really didn't participate with PT and spent most of her time in bed or chair. 2. Neoplasm of uncertain behavior of trachea, bronchus and lung. Multiple nodules seen in B lungs on CT scan. She has been seen by Dr. Bowles, [facility]. PET scan and MRI done 06/28, scan results were inconclusive, MRI showed no mets to brain. Neoplasm is in the right lung, multiple areas. She is not a candidate for lung biopsy because of her end stage disease. She was to be seen today in the [facility] and the plan is to follow up with another PET scan in 3 months. Patient still plans on seeing entry writer, Dr Kim Mishra in November ; this might have been cancelled by the [facility]. 3. Essential hypertension- continued norvasc and diovan 4. Anxiety disorder- continue PRN xanax. 5. Chronic anemia- B12, Iron levels WNL. Likely anemia of chronic disease. Hgb 11.7 6. Hyponatremia - correcting/corrected 7. Dupuytren's contractures of both hands- stable Since home she has had to use her Trilogy 3-4 times a day and is only getting worse with decreased endurance and worsening body and leg edema. She is followed by Palliative care and has been seen regularly. She denies fever, sweats, hemoptysis. But has the same cough and severe resting sob. Tonight, as she was getting ready for bed, she felt acute more sob. She did her albuterol and it didn't help. She decided to come to the ER. History - Past Medical History Cardiovascular: reports: Hypertension Respiratory: reports: COPD, Other Endocrine/Autoimmune: reports: None GI: reports: Cholelithiasis LICENSE AND PERMIT SPECIALIST: reports: Other : reports: None HEENT: reports: None Psych: reports: Anxiety Musculoskeletal: reports: Osteoarthritis Derm: reports: None MRSA Hx?: No - Past Surgical History General: reports: Cholecystectomy HEENT: reports: Tonsil/Adenoidectomy - Family & Social History Family History Comment/Other: Both of her mother and father in the late 60s early 70s. Mom smoked up until her and she of COPD complications. Dad also of COPD. She has 4 brothers and one sister. All of them live in [place] except except one who lives in the [facility]. She says that no one has diabetes, hypertension, heart disease, or emphysema. Of 3 children her youngest daughter with killed or under suspicious circumstances. Her other 2 children are healthy. Social History Notes: Patient is a woman who lives alone in [place]. She was born in [place] and is retired. She has two children. The patient has lived on [facility] since 1983. Prior to that she lived in the [facility]. The patient has a daughter and son both of whom live on [facility]. The patient quit smoking Around 2007 but smoked 1 pack a day for over 50 years Starting at the age of 17. The patient does drink 1 beer a night. In the past she has done marijuana. When she was to her first he was a cocaine addict and she tried cocaine a few times but she never used it on a regular basis. She has not used it since her 20s.She has a Jonathan worker that comes by every day except Monday and Monday. But the jonathan worker is only a few hours a day. Because of excessive breathlessness, end-stage lung disease, she has become homebound over the last year - Substance History Use: Uses substance without health or social issues: NONE (Quit smoking but previously smoked 1PPD for over 50 years), Alcohol (1 beer a night) Abuse: Recurrent use of substance despite neg consequences: NONE Dependence: Experiences withdrawal or developed tolerances: NONE - POLST Patient has POLST: No POLST Status: Full Code Meds/Allgy - Home Medications Home Medications: Ambulatory Orders Medication Instructions Recorded Confirmed Albuterol Sulfate [Proair Hfa 2 puffs INH Q4H PRN 08/31/16 07/18/18 Inhaler] Multivitamin [Theragran] 1 each PO DAILY #0 06/06/17 07/18/18 Fluticasone Propionate 2 spray PAULINE DAILY PRN 09/15/17 07/18/18 Loratadine 10 mg PO DAILY MDD 1 capsule 04/11/18 07/18/18 Valsartan [Diovan] 80 mg PO DAILY 04/21/18 07/18/18 Fluticasone/Salmeterol [Advair 1 puffs INH BID #1 blst.w.dev 04/23/18 07/18/18 500-50 Diskus] Ipratropium/Albuterol [Duoneb] 3 ml INH RTQID neb 04/24/18 07/18/18 LORazepam [Ativan] 0.5 mg PO Q6HR PRN 06/20/18 07/18/18 Morphine Sulfate [Morphine Sulf 5 mg PO TID 06/20/18 07/18/18 Oral (Roxanol)] Atorvastatin Calcium 20 mg PO QPM 07/18/18 07/18/18 Polyethylene Glycol 3350 [Miralax] 17 gm PO DAILY 07/18/18 07/18/18 amLODIPine [Norvasc] 5 mg PO DAILY 07/18/18 07/18/18 - Allergies Allergies/Adverse Reactions: Allergies Allergy/AdvReac Type Severity Reaction Status Date / Time No Known Drug Allergies Allergy Verified 07/18/18 00:42 Review of Systems - Constitutional Constitutional: reports: Fatigue, Weakness. denies: Fever, Chills, Malaise, Poor appetite, Diaphoresis, Night sweats - Eyes Eyes: denies: Pain, Irritation, Amaurosis, Blurred vision, Field loss - Ears, Nose & Throat Ears, Nose & Throat: denies: Hearing loss, Hearing aids, Tinnitus, Nasal obstruction, Nasal congestion - Cardiovascular Cariovascular: reports: Palpitations, Edema, Exertional dyspnea, Decr. exercise tolerance, Orthopnea. denies: Irregular heart rate, Chest pain, Lightheadedness , Syncope - Respiratory Respiratory: reports: Cough, SOB at rest, SOB with exertion, Other (uses Trilogy 3-4 times a day) - Gastrointestinal Gastrointestinal: reports: Constipation, Change in bowel habits, Nausea. denies : Abdominal pain, Abdominal distention, Diarrhea, Rectal bleeding, Black stools , Bloody stools, Vomiting, Bile emesis - Genitourinary Genitourinary: denies: Dysuria, Frequency, Urgency, Hematuria - Musculoskeletal Musculoskeletal: reports: Back pain. denies: Muscle pain, Muscle aches, Stiffness, Limited range of motion - Integumentary Integumentary: denies: Rash, Pruritis, Lesions, Dryness - Neurological Neurological: reports: General weakness. denies: Focal weakness, Headache, Dizziness, Numbness, Pre-existing deficit - Psychiatric Psychiatric: reports: Depression. denies: Anxiety, Suicidal, Delusions, Hallucinations, Homicidal - Endocrine Endocrine: denies: Polyuria, Polydypsia, Polyphagia - Hematologic/Lymphatic Hematologic/Lymphatic: denies: Anemia, Bruising, Petechiae Exam - Vital Signs Vital Signs: Vital Signs x48h Temp Pulse Resp BP Pulse Ox 07/18/18 04:38 36.4 C L 100 18 119/63 95 07/18/18 03:00 104 H 22 130/61 95 07/18/18 02:00 104 H 28 H 114/51 L 94 07/18/18 01:13 113 H 14 138/61 H 95 07/18/18 01:00 112 H 20 07/18/18 00:53 118 H 21 146/80 H 100 07/18/18 00:38 114 H 19 07/18/18 00:37 36.8 C 121 H 26 H 146/80 H 96 - Physical Exam General Appearance: positive: Alert, Moderate distress, Other (morbidly obese, pursed lip breathing female) Eyes Bilateral: positive: PERRL ENT: positive: No signs of dehydration Neck: positive: No JVD. negative: Stiff neck, Carotid bruit Respiratory: positive: Chest non-tender, Other (her lungs are silent, you can't hear air movement. She's moving her chest wall but no sounds). negative: Rales , Rhonchi Cardiovascular: positive: Regular rate & rhythm, Other (neck too thick to assess for JVD). negative: Gallop/S4 Peripheral Pulses: positive: 1+ Abdomen: positive: Non-tender, Nml bowel sounds. negative: Guarding, Rebound Skin: positive: Warm, Dry Extremities: positive: Pedal edema. negative: Full ROM Neurologic/Psychiatric: positive: Oriented x3, CN's nml (2-12), Motor nml, Weakness Conclusion/Plan - Problem List (1) Pneumonia Conclusion/Plan: proable left lung. The right lung had the neoplasm. No fever or WBC but she has acute worseing of her chronic hypoxia with a new infiltrate from a CXR ~2 weeks ago Plan: rocephin and levaquin adjust abx on the basis of her blood cultures Qualifiers: Pneumonia type: due to unspecified organism Laterality: left Lung location: lower lobe of lung Qualified Code(s): J18.1 - Lobar pneumonia, unspecified organism (2) Severe chronic obstructive pulmonary disease Conclusion/Plan: with chronic respiratory failure with hypercapnea and hypoxia. duoneb qid inhaled budesonide perforomist ad albuterol via neb q2 h prn. (3) Neoplasm of uncertain behavior of lung Conclusion/Plan: PET scan and MRI done 06/28, scan results were inconclusive, MRI showed no mets to brain. Neoplasm is in the right lung, multiple areas. She is not a candidate for lung biopsy because of her end stage disease. She was to be seen today in the [facility] and the plan is to follow up with another PET scan in 3 months. Patient still plans on seeing entry writer, Dr Kim Mishra in November ; this might have been cancelled by the [facility]. Will ask Dr. Bowles to see her in the hospital if possible. She is already followed by Palliative Care. She has named her sister as POA but still hopes to have both her sister and her son take care of her when she is dying. Her son so far has not been able to commit. Because of that she has not wanted to become DNR/DNI. I've carefully explained that her son may never be able to help and for her to wait to do her POLST until he can help is not in her best interest. She will think about it. - Lab Results Fish Bones: 07/19/18 05:35 07/19/18 05:35 - Diagnostic Imaging Results Diagnostic Imaging Results: positive: Final report reviewed - EKG Results EKG Interpreted Independently: No Core Measures - Anticipated LOS I expect patient to be DC'd or transferred within 96 hours.: Yes - DVT/VTE - Prophylaxis VTE/DVT Device ordered at admit?: Yes
[2018-07-18] MEDS ORDERED: ALBUTEROL NEB 2.5 MG/3 ML INH PRN (06:04)
[2018-07-18] MEDS: FORMOTEROL FUMARATE NEB 20 MCG/2 ML INH SCH ×2 (07:50→18:15)
[2018-07-18] MEDS: BUDESONIDE 0.5 MG/2 ML NEB INH SCH ×2 (07:50→18:15)
[2018-07-18] MEDS: IPRATROPIUM/ALBUTEROL 3 ML NEB INH SCH ×4 (07:50→18:15)
[2018-07-18] MEDS: LOSARTAN 50 MG TABLET PO SCH (09:45)
[2018-07-18] MEDS: OLOPATADINE HCL EACHEYE SCH ×2 (09:45→21:43)
[2018-07-18] MEDS: FUROSEMIDE 20 MG TABLET PO SCH (09:45)
[2018-07-18] MEDS: POLYETHYLENE GLYCOL 3350 17 GM PACKET PO SCH (09:46)
[2018-07-18] MEDS: POTASSIUM CHLORIDE 10 MEQ CAPSULE PO SCH (09:47)
[2018-07-18] MEDS: SODIUM CHLORIDE FLUSH 0.9% 10 ML SYRINGE IVP SCH ×3 (09:48→23:55)
[2018-07-18] MEDS: LORATADINE 10 MG TABLET PO PRN (09:48)
[2018-07-18] MEDS: SODIUM CHLORIDE 0.65% NASAL SPRAY NAS PRN (14:04)
[2018-07-18] MEDS: [UNRECOGNIZED DRUG - SUPPLY] INH SCH (21:43)
[2018-07-18] MEDS: ATORVASTATIN 10 MG TABLET PO SCH (21:44)
[2018-07-19] MEDS: cefTRIAXone 2 GM in SODIUM CHLORIDE 0.9% MINIBAG 100 ML IV SCH (05:34)
[2018-07-19] MEDS: SODIUM CHLORIDE FLUSH 0.9% 10 ML SYRINGE IVP PRN (05:34)
[2018-07-19 06:04] LABS: BASOPHILS % (AUTO) 0.1 %; HGB - HEMOGLOBIN 11.1 g/dL (12.0-16.0); LYMPHOCYTES % (AUTO) 9.4 %; MEAN CORPUSCULAR HEMOGLOBIN 30.8 pg (27.0-31.0); MEAN CORPUSCULAR HGB CONC 33.6 g/dL (32.0-36.0); MEAN CORPUSCULAR VOLUME 91.6 fL (81.0-99.0); MEAN PLATELET VOLUME 6.1 fL (7.9-10.8); MONOCYTES # (AUTO) 0.7 10^3/uL (0.0-1.0); MONOCYTES % (AUTO) 6.1 %; NEUTROPHILS # (AUTO) 9.2 10^3/uL (1.5-6.6); NEUTROPHILS % (AUTO) 84.4 %; PLT - PLATELET COUNT 338 10^3/uL (130-450); RED BLOOD COUNT 3.61 10^6/uL (4.20-5.40); RED CELL DISTRIBUTION WIDTH 14.2 % (12.0-15.0); WHITE BLOOD COUNT 10.9 x10^3/uL (4.8-10.8)
[2018-07-19 06:15] LABS: CALCIUM 8.5 mg/dL (8.5-10.3); CREATININE 0.4 mg/dL (0.4-1.0)
--- NOTE | 2018-07-19 06:56 | PROVIDER PROGRESS NOTE ---
Hospitalist Cross-cover Note - Cross-Cover Note Cross-Cover Note: 07/19/18 06:55 she is refusing enedina hose and SCD's. Will order lovenox for DVT prophylaxis.
[2018-07-19] MEDS: IPRATROPIUM/ALBUTEROL 3 ML NEB INH SCH ×4 (06:58→19:40)
[2018-07-19] MEDS: BUDESONIDE 0.5 MG/2 ML NEB INH SCH ×2 (06:58→19:40)
[2018-07-19] MEDS: FORMOTEROL FUMARATE NEB 20 MCG/2 ML INH SCH (06:58)
[2018-07-19] MEDS: ENOXAPARIN 40 MG/0.4 ML SYRINGE SUBQ SCH ×2 (09:03→11:02)
[2018-07-19] MEDS: amLODIPine 5 MG TABLET PO SCH (09:03)
[2018-07-19] MEDS: POLYETHYLENE GLYCOL 3350 17 GM PACKET PO SCH (09:03)
[2018-07-19] MEDS: POTASSIUM CHLORIDE 10 MEQ CAPSULE PO SCH (09:03)
[2018-07-19] MEDS: LORATADINE 10 MG TABLET PO PRN (09:04)
[2018-07-19] MEDS: levoFLOXacin 750 MG/150 ML 750 MG/150 ML BAG IV SCH (09:04)
[2018-07-19] MEDS: FUROSEMIDE 20 MG TABLET PO SCH (09:04)
[2018-07-19] MEDS: LOSARTAN 50 MG TABLET PO SCH (09:04)
[2018-07-19] MEDS: OLOPATADINE HCL EACHEYE SCH ×2 (09:05→20:36)
[2018-07-19] MEDS: SODIUM CHLORIDE FLUSH 0.9% 10 ML SYRINGE IVP SCH ×3 (09:05→23:51)
--- NOTE | 2018-07-19 12:55 | PROVIDER PROGRESS NOTE ---
Subjective - Prog Note Date Prog Note Date: 07/19/18 Prog Note Time: 12:55 - Subjective Pt reports feeling: No change Subjective: Trupti has a primary complaint of "a stuffed up nose". She denies new symptoms including dizziness, bleeding, nausea, vomiting, or a productive cough. Objective - Vital Signs/Intake & Output Reviewed Vital Signs: Yes Vital Signs: Vital Signs x48h Temp Pulse Pulse Resp BP Pulse Ox 07/19/18 10:51 22 L 22 07/19/18 07:50 36.9 C 111 H 18 127/55 L 98 07/19/18 06:59 105 H 20 Intake & Output: Intake & Output 07/16/18 07/17/18 07/18/18 07/19/18 23:59 23:59 23:59 23:59 Intake Total 760 670 Balance 760 670 - Objective General Appearance: positive: No acute distress, Alert, Anxious Eyes Bilateral: positive: Normal inspection, PERRL Eyes: OU Conjunctivae pale ENT: positive: ENT inspection nml, Pharynx nml, No signs of dehydration Neck: positive: Nml inspection, Thyroid nml, No JVD, Trachea midline Respiratory: positive: Chest non-tender, No respiratory distress, Wheezes, Rhonchi Cardiovascular: positive: No gallop, Systolic murmur Abdomen: positive: Non-tender, Nml bowel sounds, Other (rounded, soft) Back: positive: Nml inspection Skin: positive: No rash, Warm, Dry Extremities: positive: Non-tender, Pedal edema (+2-3 pitting, BLE), Joint swelling Neurologic/Psychiatric: positive: Oriented x3, CN's nml (2-12), Motor nml, Weakness, Sensory loss, Depressed mood/affect, Other (very few full sentances as her breathing impairs this.) Reflexes: Bicep (R): 2+, Bicep (L): 2+ - Lab Results Fish Bones: 07/20/18 05:35 07/20/18 05:35 Other Labs: Lab Results x24hrs 07/19/18 07/19/18 Range/Units 05:35 05:35 WBC 10.9 H (4.8-10.8) x10^3/uL RBC 3.61 L (4.20-5.40) 10^6/uL Hgb 11.1 L (12.0-16.0) g/dL Hct 33.1 L (37.0-47.0) % MCV 91.6 (81.0-99.0) fL MCH 30.8 (27.0-31.0) pg MCHC 33.6 (32.0-36.0) g/dL RDW 14.2 (12.0-15.0) % Plt Count 338 (130-450) 10^3/uL MPV 6.1 L (7.9-10.8) fL Neut # (Auto) 9.2 H (1.5-6.6) 10^3/uL Lymph # (Auto) 1.0 L (1.5-3.5) 10^3/uL [place] # (Auto) 0.7 (0.0-1.0) 10^3/uL Eos # (Auto) 0.0 (0.0-0.7) 10^3/uL Baso # (Auto) 0.0 (0.0-0.1) 10^3/uL Absolute Nucleated RBC 0.00 x10^3/uL Nucleated RBC % 0.0 /100WBC Sodium 135 (135-145) mmol/L Potassium 4.2 (3.5-5.0) mmol/L Chloride 95 L (101-111) mmol/L Carbon Dioxide 33 H (21-32) mmol/L Anion Gap 7.0 (6-13) BUN 12 (6-20) mg/dL Creatinine 0.4 (0.4-1.0) mg/dL Estimated GFR (MDRD) 159 (>89) Glucose 137 H (70-100) mg/dL Calcium 8.5 (8.5-10.3) mg/dL ABX Reporting Has patient been on IV antibiotics over the past 48 hours?: Yes Assessment/Plan - Problem List (1) Pneumonia Impression: A chest x-ray on admission shows bilateral infiltrates and extensive emphysema. She was started on Rocephin and Levofloxacin IV and this continues. She is getting great respiratory care with scheduled nebs, a LABA neb, a bedside rescue inhaler as per her request and now with nasal sprays for her worsening sinusitis. Plan: Continue to monitor and consider imaging if condition worsens. Qualifiers: Pneumonia type: due to unspecified organism Laterality: left Lung location: lower lobe of lung Qualified Code(s): J18.1 - Lobar pneumonia, unspecified organism (2) Chronic sinusitis Impression: The patient likely has this as a consequence to her end stage COPD. She denies previous sinus surgeries, or recent nose bleeding. She admits to previous times when she was treated with Afrin spray and this was believed to improve her symptoms. I will add this for a 3-day course or 6 doses. She stated that she could not breath through her nose. Flonase was also added to be used daily. Plan: continue to monitor, with chronic oxygen use. Qualifiers: Sinusitis location: frontal Qualified Code(s): J32.1 - Chronic frontal sinusitis (3) Severe chronic obstructive pulmonary disease Impression: The patient is oxygen dependent and this pneumonia is a further insult to this end stage disease. She has very little reserve and her efforts are used for eating and going to the bathroom. She was visited by palliative care today for future plans. A medical update was given. She is prescribed budesinide nebs, xopenex nebs, IV antibiotics and continuous oxygen per nasal cannula. The patient was reminded today that the albuterol rescue inhaler should only be used every 4 hours, or this may become ineffective if over used as it has no more receptor sites. Plan: Continue with respiratory support, trilogy machine at the bedside, treat pneumonia. (4) Oxygen dependent Impression: The patient is prescribed home oxygen at 3-5 L per nasal cannula. She also has a trilogy machine and is reported to be non-compliant with using this. She displays "cloudy thinking" frequently as her blood gases become easily altered and she would benefit from the use of this device. Plan: Continue to encourage use and supplemental oxygen. 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 She has been seen by Dr. Bowles, [facility]. PET scan and MRI done 06/28, scan results were inconclusive, MRI showed no mets to brain. Neoplasm is in the right lung, multiple areas. She is not a candidate for lung biopsy because of her end stage lung disease. She had an appointment to be seen in the [facility] and the plan is to follow up with another PET scan in 3 months. Patient still plans on seeing weave room supervisor, Dr Kim Mishra in November. Plan: continue to treat acute pneumonia and provide support.
[2018-07-19] MEDS: OXYMETAZOLINE NASAL SPRAY NAS SCH ×2 (14:34→20:36)
[2018-07-19] MEDS: ATORVASTATIN 10 MG TABLET PO SCH (20:34)
[2018-07-19] MEDS: SODIUM CHLORIDE 0.65% NASAL SPRAY NAS PRN (20:35)
[2018-07-19] MEDS: [UNRECOGNIZED DRUG - SUPPLY] INH SCH (20:36)
[2018-07-20 06:08] LABS: EOSINOPHILS % (AUTO) 0.7 %; HGB - HEMOGLOBIN 11.9 g/dL (12.0-16.0); LYMPHOCYTES % (AUTO) 24.3 %; MEAN CORPUSCULAR HEMOGLOBIN 31.1 pg (27.0-31.0); MEAN CORPUSCULAR HGB CONC 34.1 g/dL (32.0-36.0); MEAN CORPUSCULAR VOLUME 91.4 fL (81.0-99.0); MEAN PLATELET VOLUME 6.1 fL (7.9-10.8); MONOCYTES % (AUTO) 11.9 %; NEUTROPHILS % (AUTO) 62.1 %; PLT - PLATELET COUNT 343 10^3/uL (130-450); RED BLOOD COUNT 3.83 10^6/uL (4.20-5.40); RED CELL DISTRIBUTION WIDTH 14.2 % (12.0-15.0); WHITE BLOOD COUNT 7.1 x10^3/uL (4.8-10.8)
[2018-07-20 06:09] LABS: CALCIUM 8.3 mg/dL (8.5-10.3); CREATININE 0.5 mg/dL (0.4-1.0)
[2018-07-20 06:24] LABS: ABNORMAL LYMPHS % (MANUAL) 0 %
[2018-07-20 06:43] LABS: BAND NEUTROPHILS % (MANUAL) 3 %; DIFFERENTIAL COMMENT MANUAL DIFFERENTIAL; LYMPHOCYTES % (MANUAL) 14 %; METAMYELOCYTES % (MANUAL) 1 %; MONOCYTES # (MANUAL) 0.5 10^3/uL (0.0-1.0); MYELOCYTES % (MANUAL) 2 %; NEUTROPHILS # (MANUAL) 5.4 10^3/uL (1.5-6.6); NEUTROPHILS % (MANUAL) 73 %; PLATELET ESTIMATE, MANUAL NORMAL (130-450,000) (NORMAL); RBC MORPHOLOGY (MULTIPLE) NORMAL APPEARANCE (NORMAL)
[2018-07-20] MEDS: IPRATROPIUM/ALBUTEROL 3 ML NEB INH SCH ×4 (07:28→19:55)
[2018-07-20] MEDS: BUDESONIDE 0.5 MG/2 ML NEB INH SCH ×2 (07:28→19:55)
[2018-07-20] MEDS: cefTRIAXone 2 GM in SODIUM CHLORIDE 0.9% MINIBAG 100 ML IV SCH (08:30)
[2018-07-20] MEDS: levoFLOXacin 750 MG/150 ML 750 MG/150 ML BAG IV SCH (08:32)
[2018-07-20] MEDS: POLYETHYLENE GLYCOL 3350 17 GM PACKET PO SCH (08:32)
[2018-07-20] MEDS: FLUTICASONE NASAL SPRAY NAS SCH (08:33)
[2018-07-20] MEDS: SODIUM CHLORIDE FLUSH 0.9% 10 ML SYRINGE IVP SCH ×3 (08:33→23:58)
[2018-07-20] MEDS: ENOXAPARIN 40 MG/0.4 ML SYRINGE SUBQ SCH (08:33)
[2018-07-20] MEDS: FUROSEMIDE 20 MG TABLET PO SCH (08:33)
[2018-07-20] MEDS: amLODIPine 5 MG TABLET PO SCH (08:33)
[2018-07-20] MEDS: LOSARTAN 50 MG TABLET PO SCH (08:33)
[2018-07-20] MEDS: POTASSIUM CHLORIDE 10 MEQ CAPSULE PO SCH (08:33)
[2018-07-20] MEDS: OXYMETAZOLINE NASAL SPRAY NAS SCH ×2 (08:34→20:52)
[2018-07-20] MEDS: OLOPATADINE HCL EACHEYE SCH ×2 (08:34→20:51)
[2018-07-20] MEDS: ATORVASTATIN 10 MG TABLET PO SCH (20:53)
[2018-07-20] MEDS: [UNRECOGNIZED DRUG - SUPPLY] INH SCH (23:04)
[2018-07-20] MEDS ORDERED: diltiaZEM INJ 5 MG/ML VIAL IVP SCH (23:12)
[2018-07-20] MEDS ORDERED: LEVALBUTEROL 1.25 MG/3 ML NEB INH PRN (23:15)
--- NOTE | 2018-07-20 23:19 | PROVIDER PROGRESS NOTE ---
Subjective - Prog Note Date Prog Note Date: 07/20/18 Prog Note Time: 12:00 - Subjective Pt reports feeling: No change Subjective: Trupti complains of ongoing shortness of breath and states that she doesn't have much taste and is not sleeping well. She denies any new symptoms of increased sputum production, nausea, vomiting, or dizziness. Current Medications - Current Medications Current Medications: Active Medications Acetaminophen (Tylenol) 650 mg PO Q4HR PRN PRN Reason: Pain 1 to 4 Albuterol () 2.5 mg INH RTQ4H PRN PRN Reason: Wheezing Atorvastatin Calcium (Lipitor) 20 mg PO QPM [facility] Last Admin: 07/20/18 20:53 Dose: 20 mg Budesonide (Pulmicort) 0.5 mg INH RTBID [facility] Last Admin: 07/20/18 19:55 Dose: 0.5 mg Diltiazem HCl (Cardizem Cd) 180 mg PO DAILY [facility] Diltiazem HCl (Cardizem Inj) 5 mg IVP ONCE [facility] Stop: 07/21/18 02:00 Enoxaparin Sodium (Lovenox) 40 mg SUBQ DAILY [facility] Last Admin: 07/20/18 08:33 Dose: 40 mg Fluticasone Propionate (Flonase) 1 sprays PAULINE DAILY [facility] Last Admin: 07/20/18 08:33 Dose: 1 spr Furosemide (Lasix) 20 mg PO DAILY [facility] Last Admin: 07/20/18 08:33 Dose: 20 mg Ceftriaxone Sodium 2 gm/ (Sodium Chloride) 100 mls @ 200 mls/hr IV DAILY [facility] Last Infusion: 07/20/18 09:20 Dose: Infused Levofloxacin (Levaquin 750 Mg/150 Ml) 750 mg in 150 mls @ 100 mls/hr IV Q24H [facility] Last Infusion: 07/20/18 10:30 Dose: Infused Levalbuterol HCl (Xopenex) 1.25 mg INH Q4H PRN PRN Reason: Shortness of Air/Wheezing Levalbuterol HCl (Xopenex) 1.25 mg INH TID [facility] Loratadine (Claritin) 10 mg PO DAILY PRN PRN Reason: Shortness of Air/Wheezing Last Admin: 07/19/18 09:04 Dose: 10 mg Lorazepam (Ativan) 0.5 mg PO Q6HR PRN PRN Reason: Anxiety Last Admin: 07/18/18 21:50 Dose: 0.5 mg Losartan Potassium (Cozaar) 25 mg PO DAILY [facility] Morphine Sulfate (Roxanol) 5 mg PO Q4HR PRN PRN Reason: Shortness of Air/Wheezing Ondansetron HCl (Zofran Inj) 4 mg IVP Q6HR PRN PRN Reason: Nausea / Vomiting Ondansetron HCl (Zofran Odt) 4 mg TL Q6HR PRN PRN Reason: Nausea / Vomiting Oxycodone HCl (Roxicodone) 5 mg PO Q4HR PRN PRN Reason: Pain 5 to 7 Oxymetazoline HCl (Afrin) 2 sprays PAULINE BID [facility] Stop: 07/22/18 13:59 Last Admin: 07/20/18 20:52 Dose: 1 spr Olopatadine Hcl (Drops) 2 each EACHEYE BID [facility] Last Admin: 07/20/18 20:51 Dose: Not Given Trilogy Mask 1 each INH QPM [facility] Last Admin: 07/20/18 23:04 Dose: Not Given Polyethylene Glycol (Miralax) 17 gm PO DAILY [facility] Last Admin: 07/20/18 08:32 Dose: 17 gm Sodium Chloride (Chaves) 1 sprays PAULINE PRN PRN PRN Reason: dry Last Admin: 07/19/18 20:35 Dose: 1 spr Sodium Chloride (Normal Saline Flush 0.9%) 10 ml IVP PRN PRN PRN Reason: NEEDED PER PROVIDER ORDERS Last Admin: 07/19/18 05:34 Dose: 20 ml Sodium Chloride (Normal Saline Flush 0.9%) 10 ml IVP 0100,0900,1700 [facility] Last Admin: 07/20/18 18:02 Dose: 10 ml Spironolactone (Aldactone) 25 mg PO DAILY [facility] Albuterol Sulfate [Proair Hfa Inhaler] 2 puffs INH Q4H PRN 08/31/16 Multivitamin [Theragran] 1 each PO DAILY #0 06/06/17 Fluticasone Propionate 2 spray PAULINE DAILY PRN 09/15/17 Loratadine 10 mg PO DAILY [facility] 1 capsule 04/11/18 Valsartan [Diovan] 80 mg PO DAILY 04/21/18 LORazepam [Ativan] 0.5 mg PO Q6HR PRN 06/20/18 Morphine Sulfate [Morphine Sulf Oral (Roxanol)] 5 mg PO TID 06/20/18 Atorvastatin Calcium 20 mg PO QPM 07/18/18 Polyethylene Glycol 3350 [Miralax] 17 gm PO DAILY 07/18/18 amLODIPine [Norvasc] 5 mg PO DAILY 07/18/18 Objective - Vital Signs/Intake & Output Reviewed Vital Signs: Yes Vital Signs: Vital Signs x48h Temp Pulse Pulse Resp BP Pulse Ox 07/20/18 19:56 116 H 22 07/20/18 16:00 37.1 C 98 20 133/50 H 98 07/20/18 15:34 104 H 20 Intake & Output: Intake & Output 07/17/18 07/18/18 07/19/18 07/20/18 23:59 23:59 23:59 23:59 Intake Total 760 1140 1600 Output Total 400 Balance 760 1140 1200 - Objective General Appearance: positive: Alert, Mild distress, Anxious Eyes Bilateral: positive: Normal inspection, PERRL ENT: positive: ENT inspection nml, Pharyngeal erythema, Dry mucous membranes Neck: positive: Nml inspection, Thyroid nml, No JVD, Trachea midline, Lymphadenopathy (R), Lymphadenopathy (L) Respiratory: positive: Chest non-tender, Wheezes, Rhonchi Cardiovascular: positive: No gallop, Irregularly irregular, Tachycardia, Systolic murmur Peripheral Pulses: 1+ Radial (R), 1+ Radial (L) Abdomen: positive: Non-tender, Nml bowel sounds, Other (obese, soft) Back: positive: Nml inspection Skin: positive: No rash, Warm, Dry Extremities: positive: Non-tender, Pedal edema (BLE edema reduced from yesterday ), Joint swelling Neurologic/Psychiatric: positive: Oriented x3, CN's nml (2-12), Motor nml, Weakness, Slurred/abnml speech (very poor speaking abilty due to profound SOB.) , Depressed mood/affect Reflexes: Bicep (R): 3+, Bicep (L): 3+ - Lab Results Fish Bones: 07/20/18 05:35 07/20/18 05:35 Other Labs: Lab Results x24hrs 07/20/18 07/20/18 Range/Units 05:35 05:35 WBC 7.1 (4.8-10.8) x10^3/uL RBC 3.83 L (4.20-5.40) 10^6/uL Hgb 11.9 L (12.0-16.0) g/dL Hct 35.0 L (37.0-47.0) % MCV 91.4 (81.0-99.0) fL MCH 31.1 H (27.0-31.0) pg MCHC 34.1 (32.0-36.0) g/dL RDW 14.2 (12.0-15.0) % Plt Count 343 (130-450) 10^3/uL MPV 6.1 L (7.9-10.8) fL Neut # (Auto) Not Reportable Lymph # (Auto) Not Reportable [place] # (Auto) Not Reportable Eos # (Auto) Not Reportable Baso # (Auto) Not Reportable Absolute Nucleated RBC Not Reportable Total Counted 100 Band Neuts % (Manual) 3 (0 - 10) % Abnorm Lymph % (Manual) 0 % Metamyelocytes % 1 H ( - 0) % Myelocytes % 2 H ( - 0) % Nucleated RBC % Not Reportable Neutrophils # (Manual) 5.4 (1.5-6.6) 10^3/uL Lymphocytes # (Manual) 1.0 L (1.5-3.5) 10^3/uL Monocytes # (Manual) 0.5 (0.0-1.0) 10^3/uL Eosinophils # (Manual) 0.0 (0-0.7) 10^3/uL Basophils # (Manual) 0.0 (0-0.1) 10^3/uL Differential Comment MANUAL DIFFERENTIAL Platelet Estimate NORMAL (130-450,000) (NORMAL) RBC Morph Micro Appear NORMAL APPEARANCE (NORMAL) Sodium 135 (135-145) mmol/L Potassium 3.6 (3.5-5.0) mmol/L Chloride 93 L (101-111) mmol/L Carbon Dioxide 35 H (21-32) mmol/L Anion Gap 7.0 (6-13) BUN 11 (6-20) mg/dL Creatinine 0.5 (0.4-1.0) mg/dL Estimated GFR (MDRD) 123 (>89) Glucose 101 H (70-100) mg/dL Calcium 8.3 L (8.5-10.3) mg/dL ABX Reporting Has patient been on IV antibiotics over the past 48 hours?: Yes Assessment/Plan - Problem List (1) Pneumonia Impression: A chest x-ray on admission shows bilateral infiltrates and extensive emphysema. She was started on Rocephin and Levofloxacin IV and this continues. I have ordered a sputum sample and this is pending. She is getting great respiratory care with scheduled nebs, a LABA neb, a bedside rescue inhaler as per her request and now with nasal sprays for her worsening sinusitis. Today, her respiratory seems somewhat worse, so I will add low dose steroids. Plan: Continue to monitor and consider imaging if condition worsens. Await sputum culture results. Qualifiers: Pneumonia type: due to unspecified organism Laterality: left Lung location: lower lobe of lung Qualified Code(s): J18.1 - Lobar pneumonia, unspecified organism (2) Pulmonary hypertension Impression: The patient's last known echo showed an increase in her right heart pressures with an RVSP at rest at 44 mm Hg. I have discontinued her potassium and started Spironolactone to begin in the AM. She has evidence of this as she has end stage lung disease, oxygen dependent, increased abdominal girth, and chronic , increased BLE edema. Plan: Continue to monitor urine out put, leg edema and continue oxygen/ respiratory care. (3) Chronic sinusitis Impression: The patient likely has this as a consequence to her end stage COPD. She denies previous sinus surgeries, or recent nose bleeding. She continues on the Afrin spray that was added yesterday for a 3-day course or 6 doses. She stated that she could not breath through her nose. Flonase was also added to be used daily. Plan: continue to monitor, with chronic oxygen use. Qualifiers: Sinusitis location: frontal Qualified Code(s): J32.1 - Chronic frontal sinusitis (4) Severe chronic obstructive pulmonary disease Impression: The patient is oxygen dependent and this pneumonia is a further insult to this end stage disease. She has very little reserve and her efforts are used for eating and going to the bathroom. She was visited by palliative care today for future plans. A medical update was given. She is prescribed budesinide nebs, xopenex nebs, IV antibiotics and continuous oxygen per nasal cannula. The patient was reminded today that the albuterol rescue inhaler should only be used every 4 hours, or this may become ineffective if over used as it has no more receptor sites. Plan: Continue with respiratory support, trilogy machine at the bedside, treat pneumonia and await sputum culture. (5) Oxygen dependent Impression: The patient is prescribed home oxygen at 3-5 L per nasal cannula. She also has a trilogy machine and is reported to be non-compliant with using this. She displays "cloudy thinking" frequently as her blood gases become easily altered and she would benefit from the use of this device. Plan: Continue to encourage use and supplemental oxygen. (6) Tachycardia Impression: The patient is noted to have an elevated heart rate since being admitted and this is not helping her overall well being as it is likely adding to her anxiety , breathing efforts, and energy preservation. She is prescribed Norvasc at home and this has been replaced with diltiazem at 180 CR PO daily. A one time dose of dilt IV at 5 mg was prescribed as she continues to have tachycardia. Plan: Start PO dilt in the AM, D/C norvasc and give the one time dose of IV dilt this evening. (7) Essential (primary) hypertension Impression: The patient is precribed Norvasc and Losartan out patient and this continues while inpatient. Lasix was added recently for her chronic leg edema. Today her blood pressure remains high, tachycardia, and could be a consequence of her acute pneumonia. Plan: Continue to monitor.
[2018-07-21] MEDS: methylPREDNISolone SUCCINATE 40 MG/ML VIAL IVP SCH ×4 (00:29→21:58)
[2018-07-21] MEDS: SODIUM CHLORIDE FLUSH 0.9% 10 ML SYRINGE IVP PRN ×3 (00:29→21:58)
[2018-07-21] MEDS: LEVALBUTEROL 1.25 MG/3 ML NEB INH SCH ×4 (00:45→20:28)
[2018-07-21 06:10] LABS: BASOPHILS % (AUTO) 0.3 %; EOSINOPHILS % (AUTO) 0.2 %; HGB - HEMOGLOBIN 12.7 g/dL (12.0-16.0); LYMPHOCYTES % (AUTO) 12.1 %; MEAN CORPUSCULAR HEMOGLOBIN 30.2 pg (27.0-31.0); MEAN CORPUSCULAR HGB CONC 33.2 g/dL (32.0-36.0); MEAN PLATELET VOLUME 6.2 fL (7.9-10.8); MONOCYTES % (AUTO) 1.8 %; NEUTROPHILS % (AUTO) 85.6 %; PLT - PLATELET COUNT 341 10^3/uL (130-450); RED BLOOD COUNT 4.21 10^6/uL (4.20-5.40); RED CELL DISTRIBUTION WIDTH 14.2 % (12.0-15.0); WHITE BLOOD COUNT 6.6 x10^3/uL (4.8-10.8)
[2018-07-21 06:14] LABS: ABNORMAL LYMPHS % (MANUAL) 0 %
[2018-07-21 06:22] LABS: ALBUMIN 3.7 g/dL (3.2-5.5); ALBUMIN/GLOBULIN RATIO 1.2 (1.0-2.2); BILIRUBIN,TOTAL 0.7 mg/dL (0.2-1.0); CALCIUM 8.8 mg/dL (8.5-10.3); CREATININE 0.5 mg/dL (0.4-1.0); MAGNESIUM 2.2 mg/dL (1.7-2.8); TOTAL PROTEIN 6.9 g/dL (6.7-8.2)
[2018-07-21 06:53] LABS: BAND NEUTROPHILS % (MANUAL) 12 %; DIFFERENTIAL COMMENT MANUAL DIFFERENTIAL; LYMPHOCYTES # (MANUAL) 0.4 10^3/uL (1.5-3.5); LYMPHOCYTES % (MANUAL) 6 %; MONOCYTES # (MANUAL) 0.2 10^3/uL (0.0-1.0); NEUTROPHILS % (MANUAL) 79 %; PLATELET ESTIMATE, MANUAL NORMAL (130-450,000) (NORMAL); RBC MORPHOLOGY (MULTIPLE) NORMAL APPEARANCE (NORMAL)
[2018-07-21] MEDS: ENOXAPARIN 40 MG/0.4 ML SYRINGE SUBQ SCH (09:21)
[2018-07-21] MEDS: cefTRIAXone 2 GM in SODIUM CHLORIDE 0.9% MINIBAG 100 ML IV SCH (09:21)
[2018-07-21] MEDS: POLYETHYLENE GLYCOL 3350 17 GM PACKET PO SCH (09:21)
[2018-07-21] MEDS: levoFLOXacin 750 MG/150 ML 750 MG/150 ML BAG IV SCH (09:22)
[2018-07-21] MEDS: diltiaZEM CD 180 MG CAPSULE PO SCH ×2 (09:22→09:59)
[2018-07-21] MEDS: FUROSEMIDE 20 MG TABLET PO SCH (09:22)
[2018-07-21] MEDS: SODIUM CHLORIDE FLUSH 0.9% 10 ML SYRINGE IVP SCH ×2 (09:23→16:17)
[2018-07-21] MEDS: LOSARTAN 50 MG TABLET PO SCH (09:23)
[2018-07-21] MEDS: SPIRONOLACTONE 25 MG TABLET PO SCH ×2 (09:23→09:59)
[2018-07-21] MEDS: OLOPATADINE HCL EACHEYE SCH ×2 (09:31→21:48)
[2018-07-21] MEDS: OXYMETAZOLINE NASAL SPRAY NAS SCH ×2 (09:31→21:47)
[2018-07-21] MEDS: FLUTICASONE NASAL SPRAY NAS SCH (09:33)
[2018-07-21] MEDS: BUDESONIDE 0.5 MG/2 ML NEB INH SCH ×2 (09:40→20:28)
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
[2018-07-21] MEDS: ATORVASTATIN 10 MG TABLET PO SCH (21:47)
[2018-07-21] MEDS: [UNRECOGNIZED DRUG - SUPPLY] INH SCH (21:50)
[2018-07-22] MEDS: SODIUM CHLORIDE FLUSH 0.9% 10 ML SYRINGE IVP SCH ×3 (00:13→16:34)
[2018-07-22] MEDS: methylPREDNISolone SUCCINATE 40 MG/ML VIAL IVP SCH ×3 (06:03→21:36)
[2018-07-22 06:44] LABS: ALBUMIN 3.3 g/dL (3.2-5.5); ALBUMIN/GLOBULIN RATIO 1.1 (1.0-2.2); BILIRUBIN,TOTAL 0.7 mg/dL (0.2-1.0); CALCIUM 8.6 mg/dL (8.5-10.3); CREATININE 0.5 mg/dL (0.4-1.0); TOTAL PROTEIN 6.3 g/dL (6.7-8.2)
--- NOTE | 2018-07-22 08:23 | PROVIDER PROGRESS NOTE ---
Subjective - Prog Note Date Prog Note Date: 07/22/18 Prog Note Time: 08:23 - Subjective Pt reports feeling: Improved Subjective: Trupti has no complaints except for mild bilateral ankle soreness that happens when she walks. She states that she is sleeping well and is enjoying her food. She denies increased shortness of breath, an increased cough, nausea, vomiting , or dizziness. Current Medications - Current Medications Current Medications: Active Medications Acetaminophen (Tylenol) 650 mg PO Q4HR PRN PRN Reason: Pain 1 to 4 Albuterol () 2.5 mg INH RTQ4H PRN PRN Reason: Wheezing Last Admin: 07/22/18 12:45 Dose: 2.5 mg Atorvastatin Calcium (Lipitor) 20 mg PO QPM TERRY Last Admin: 07/22/18 21:35 Dose: 20 mg Budesonide (Pulmicort) 0.5 mg INH RTBID TERRY Last Admin: 07/23/18 09:27 Dose: 0.5 mg Diltiazem HCl (Cardizem Cd) 180 mg PO DAILY PENDING SALE TO [facility] Last Admin: 07/23/18 08:18 Dose: 180 mg Enoxaparin Sodium (Lovenox) 40 mg SUBQ DAILY PENDING SALE TO [facility] Last Admin: 07/23/18 09:50 Dose: 40 mg Fluticasone Propionate (Flonase) 1 sprays PAULINE DAILY PENDING SALE TO [facility] Last Admin: 07/23/18 09:50 Dose: Not Given Furosemide (Lasix) 20 mg PO DAILY PENDING SALE TO [facility] Last Admin: 07/23/18 08:18 Dose: 20 mg Ceftriaxone Sodium 2 gm/ (Sodium Chloride) 100 mls @ 200 mls/hr IV DAILY PENDING SALE TO [facility] Last Infusion: 07/23/18 08:45 Dose: Infused Levofloxacin (Levaquin 750 Mg/150 Ml) 750 mg in 150 mls @ 100 mls/hr IV Q24H PENDING SALE TO [facility] Last Infusion: 07/23/18 10:23 Dose: Infused Levalbuterol HCl (Xopenex) 1.25 mg INH Q4H PRN PRN Reason: Shortness of Air/Wheezing Levalbuterol HCl (Xopenex) 1.25 mg INH RTTID TERRY Loratadine (Claritin) 10 mg PO DAILY PRN PRN Reason: Shortness of Air/Wheezing Last Admin: 07/19/18 09:04 Dose: 10 mg Lorazepam (Ativan) 0.5 mg PO Q6HR PRN PRN Reason: Anxiety Last Admin: 07/18/18 21:50 Dose: 0.5 mg Losartan Potassium (Cozaar) 25 mg PO DAILY PENDING SALE TO [facility] Last Admin: 07/23/18 08:18 Dose: 25 mg Methylprednisolone (Solu-Medrol (40mg Vial)) 40 mg IVP TID PENDING SALE TO [facility] Last Admin: 07/23/18 05:14 Dose: 40 mg Morphine Sulfate (Roxanol) 5 mg PO Q4HR PRN PRN Reason: Shortness of Air/Wheezing Ondansetron HCl (Zofran Inj) 4 mg IVP Q6HR PRN PRN Reason: Nausea / Vomiting Ondansetron HCl (Zofran Odt) 4 mg TL Q6HR PRN PRN Reason: Nausea / Vomiting Oxycodone HCl (Roxicodone) 5 mg PO Q4HR PRN PRN Reason: Pain 5 to 7 Oxymetazoline HCl (Afrin) 1 sprays PAULINE BID PRN PRN Reason: Nasal Congestion Olopatadine Hcl (Drops) 2 each EACHEYE BID PENDING SALE TO [facility] Last Admin: 07/23/18 08:20 Dose: Not Given Trilogy Mask 1 each INH QPM PENDING SALE TO [facility] Last Admin: 07/22/18 21:36 Dose: 1 each Polyethylene Glycol (Miralax) 17 gm PO DAILY PENDING SALE TO [facility] Last Admin: 07/23/18 08:20 Dose: Not Given Sodium Chloride (Lajas) 1 sprays PAULINE PRN PRN PRN Reason: dry Last Admin: 07/19/18 20:35 Dose: 1 spr Sodium Chloride (Normal Saline Flush 0.9%) 10 ml IVP PRN PRN PRN Reason: NEEDED PER PROVIDER ORDERS Last Admin: 07/23/18 05:14 Dose: 10 ml Sodium Chloride (Normal Saline Flush 0.9%) 10 ml IVP 0100,0900,1700 PENDING SALE TO [facility] Last Admin: 07/23/18 08:15 Dose: 10 ml Spironolactone (Aldactone) 25 mg PO DAILY PENDING SALE TO [facility] Last Admin: 07/23/18 08:18 Dose: 25 mg Albuterol Sulfate [Proair Hfa Inhaler] 2 puffs INH Q4H PRN 08/31/16 Multivitamin [Theragran] 1 each PO DAILY #0 06/06/17 Fluticasone Propionate 2 spray PAULINE DAILY PRN 09/15/17 Loratadine 10 mg PO DAILY MDD 1 capsule 04/11/18 Valsartan [Diovan] 80 mg PO DAILY 04/21/18 LORazepam [Ativan] 0.5 mg PO Q6HR PRN 06/20/18 Morphine Sulfate [Morphine Sulf Oral (Roxanol)] 5 mg PO TID 06/20/18 Atorvastatin Calcium 20 mg PO QPM 07/18/18 Polyethylene Glycol 3350 [Miralax] 17 gm PO DAILY 07/18/18 amLODIPine [Norvasc] 5 mg PO DAILY 07/18/18 Objective - Vital Signs/Intake & Output Reviewed Vital Signs: Yes Intake & Output: Intake & Output 07/19/18 07/20/18 07/21/18 07/22/18 23:59 23:59 23:59 23:59 Intake Total 1140 1600 1500 Output Total 400 Balance 1140 1200 1500 - Objective General Appearance: positive: No acute distress, Alert Eyes Bilateral: positive: Normal inspection, PERRL ENT: positive: ENT inspection nml, Pharynx nml, No signs of dehydration, Dry mucous membranes Neck: positive: Nml inspection, Thyroid nml, No JVD, Trachea midline Respiratory: positive: Chest non-tender, No respiratory distress, Wheezes, Rhonchi Cardiovascular: positive: Regular rate & rhythm, No gallop, Systolic murmur Peripheral Pulses: 1+ Radial (R), 1+ Radial (L) Abdomen: positive: Non-tender, Nml bowel sounds, Other (obese, soft) Back: positive: Nml inspection Skin: positive: No rash, Warm, Dry Extremities: positive: Non-tender, Pedal edema (chronic BLE edema-improved since starting diuretics.), Joint swelling Neurologic/Psychiatric: positive: Oriented x3, CN's nml (2-12), Motor nml, Weakness, Sensory loss, Depressed mood/affect Reflexes: Bicep (R): 2+, Bicep (L): 2+ - Lab Results Fish Bones: 07/21/18 05:35 07/23/18 05:51 Other Labs: Lab Results x24hrs 07/22/18 07/22/18 Range/Units 06:10 06:10 Sodium 135 (135-145) mmol/L Potassium 4.2 (3.5-5.0) mmol/L Chloride 95 L (101-111) mmol/L Carbon Dioxide 34 H (21-32) mmol/L Anion Gap 6.0 (6-13) BUN 15 (6-20) mg/dL Creatinine 0.5 (0.4-1.0) mg/dL Estimated GFR (MDRD) 123 (>89) Glucose 175 H (70-100) mg/dL Calcium 8.6 (8.5-10.3) mg/dL Total Bilirubin 0.7 (0.2-1.0) mg/dL AST 19 (10-42) IU/L ALT 13 (10-60) IU/L Alkaline Phosphatase 59 (42-121) IU/L B-Natriuretic Peptide 94 (5-100) pg/mL Total Protein 6.3 L (6.7-8.2) g/dL Albumin 3.3 (3.2-5.5) g/dL Globulin 3.0 (2.1-4.2) g/dL Albumin/Globulin Ratio 1.1 (1.0-2.2) ABX Reporting Has patient been on IV antibiotics over the past 48 hours?: Yes Assessment/Plan - Problem List (1) Pneumonia Impression: A chest x-ray on admission shows bilateral infiltrates and extensive emphysema. She was started on Rocephin and Levofloxacin IV and this continues. A sputum sample was obtained and grew out yeast, with no identifiable pathogen. She is getting respiratory care with scheduled nebs, a LABA neb, a bedside rescue inhaler as per her request and now with nasal sprays for her worsening sinusitis. Plan: Continue to monitor and consider imaging if condition worsens. Await sputum culture results. Qualifiers: Pneumonia type: due to unspecified organism Laterality: left Lung location: lower lobe of lung Qualified Code(s): J18.1 - Lobar pneumonia, unspecified organism (2) Chronic sinusitis Impression: The patient likely has this as a consequence to her end stage COPD. She denies previous sinus surgeries, or recent nose bleeding. She continues on the Afrin spray that was added for a 3-day course or 6 doses. She stated that she could not breath through her nose. Flonase was also added to be used daily. Plan: continue to monitor, with chronic oxygen use. Qualifiers: Sinusitis location: frontal Qualified Code(s): J32.1 - Chronic frontal sinusitis (3) Severe chronic obstructive pulmonary disease Impression: The patient is oxygen dependent and this pneumonia is a further insult to this end stage disease. She has very little reserve and her efforts are used for eating and going to the bathroom. She was visited by palliative care today for future plans. A medical update was given. She is prescribed budesinide nebs, xopenex nebs, IV antibiotics and continuous oxygen per nasal cannula. Plan: Continue with respiratory support, trilogy machine at the bedside, treat pneumonia and await sputum culture. (4) Oxygen dependent Impression: The patient is prescribed home oxygen at 3-5 L per nasal cannula. She also has a trilogy machine and is reported to be non-compliant with using this. She displays "cloudy thinking" frequently as her blood gases become easily altered and she would benefit from the use of this device. Plan: Continue to encourage use and supplemental oxygen. 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 She has been seen by Dr. Bowles, [facility]. PET scan and MRI done 06/28, scan results were inconclusive, MRI showed no mets to brain. Neoplasm is in the right lung, multiple areas. She is not a candidate for lung biopsy because of her end stage lung disease. She had an appointment to be seen in the [facility] and the plan is to follow up with another PET scan in 3 months. Patient still plans on seeing radiology nurse, Dr Kim Mishra in November. Plan: continue to treat acute pneumonia and provide support. (6) Pulmonary hypertension Impression: The patient's last known echo showed an increase in her right heart pressures with an RVSP at rest at 44 mm Hg. I have discontinued her potassium and started Spironolactone. She has evidence of this as she has end stage lung disease, oxygen dependent, increased abdominal girth, and chronic, increased BLE edema. Each day she has less BLE edema and is tolerating the Spironolactone /lasix combination. Plan: Continue to monitor urine out put, leg edema and continue oxygen/ respiratory care.
[2018-07-22] MEDS: LEVALBUTEROL 1.25 MG/3 ML NEB INH SCH ×3 (09:10→19:57)
[2018-07-22] MEDS: BUDESONIDE 0.5 MG/2 ML NEB INH SCH ×2 (09:10→19:57)
[2018-07-22] MEDS: cefTRIAXone 2 GM in SODIUM CHLORIDE 0.9% MINIBAG 100 ML IV SCH (09:37)
[2018-07-22] MEDS: FUROSEMIDE 20 MG TABLET PO SCH (09:38)
[2018-07-22] MEDS: SPIRONOLACTONE 25 MG TABLET PO SCH (09:38)
[2018-07-22] MEDS: LOSARTAN 50 MG TABLET PO SCH (09:38)
[2018-07-22] MEDS: diltiaZEM CD 180 MG CAPSULE PO SCH (09:38)
[2018-07-22] MEDS: ENOXAPARIN 40 MG/0.4 ML SYRINGE SUBQ SCH (09:38)
[2018-07-22] MEDS: OXYMETAZOLINE NASAL SPRAY NAS SCH (09:39)
[2018-07-22] MEDS: FLUTICASONE NASAL SPRAY NAS SCH (09:39)
[2018-07-22] MEDS: levoFLOXacin 750 MG/150 ML 750 MG/150 ML BAG IV SCH (09:39)
[2018-07-22] MEDS: POLYETHYLENE GLYCOL 3350 17 GM PACKET PO SCH (09:39)
[2018-07-22] MEDS: OLOPATADINE HCL EACHEYE SCH ×2 (09:39→21:36)
[2018-07-22] MEDS: ATORVASTATIN 10 MG TABLET PO SCH (21:35)
[2018-07-22] MEDS: SODIUM CHLORIDE FLUSH 0.9% 10 ML SYRINGE IVP PRN (21:36)
[2018-07-22] MEDS: [UNRECOGNIZED DRUG - SUPPLY] INH SCH (21:36)
[2018-07-22] MEDS ORDERED: OXYMETAZOLINE NASAL SPRAY NAS PRN ×2 (21:46→22:08)
[2018-07-23] MEDS: SODIUM CHLORIDE FLUSH 0.9% 10 ML SYRINGE IVP SCH ×3 (00:12→18:38)
[2018-07-23] MEDS: SODIUM CHLORIDE FLUSH 0.9% 10 ML SYRINGE IVP PRN (05:14)
[2018-07-23] MEDS: methylPREDNISolone SUCCINATE 40 MG/ML VIAL IVP SCH (05:14)
[2018-07-23 06:47] LABS: ALBUMIN 3.2 g/dL (3.2-5.5); ALBUMIN/GLOBULIN RATIO 1.1 (1.0-2.2); BILIRUBIN,TOTAL 0.3 mg/dL (0.2-1.0); CALCIUM 8.4 mg/dL (8.5-10.3); CREATININE 0.4 mg/dL (0.4-1.0); TOTAL PROTEIN 6.1 g/dL (6.7-8.2)
[2018-07-23] MEDS: cefTRIAXone 2 GM in SODIUM CHLORIDE 0.9% MINIBAG 100 ML IV SCH (08:15)
[2018-07-23] MEDS: diltiaZEM CD 180 MG CAPSULE PO SCH (08:18)
[2018-07-23] MEDS: SPIRONOLACTONE 25 MG TABLET PO SCH (08:18)
[2018-07-23] MEDS: LOSARTAN 50 MG TABLET PO SCH (08:18)
[2018-07-23] MEDS: FUROSEMIDE 20 MG TABLET PO SCH (08:18)
[2018-07-23] MEDS: POLYETHYLENE GLYCOL 3350 17 GM PACKET PO SCH (08:20)
[2018-07-23] MEDS: OLOPATADINE HCL EACHEYE SCH ×2 (08:20→21:04)
[2018-07-23] MEDS: levoFLOXacin 750 MG/150 ML 750 MG/150 ML BAG IV SCH (08:52)
[2018-07-23] MEDS: LEVALBUTEROL 1.25 MG/3 ML NEB INH SCH ×3 (09:27→19:59)
[2018-07-23] MEDS: BUDESONIDE 0.5 MG/2 ML NEB INH SCH ×2 (09:27→19:59)
[2018-07-23] MEDS: ENOXAPARIN 40 MG/0.4 ML SYRINGE SUBQ SCH (09:50)
[2018-07-23] MEDS: FLUTICASONE NASAL SPRAY NAS SCH ×2 (09:50→15:56)
--- NOTE | 2018-07-23 11:34 | Discharge Plan ---
Discharge Plan Condition: Good Instruction Topics: COPD Dc, ED Pneumonia Adult Additional Instructions or Follow Up instructions: Your symptoms today are being caused by pneumonia and copd exacerbation. While I understand that you want to go home it is important that you return to the emergency department if your symptoms worsen. You will be on a short course of antibiotics and steroids and it is important that you take your entire course of medications. No Smoking: If you smoke, Please STOP! Call for help. Follow-up with: Kirti Phillips ARNP [Primary Care Provider] - Tomorrow
--- NOTE | 2018-07-23 11:50 | PROVIDER PROGRESS NOTE ---
Subjective - Prog Note Date Prog Note Date: 07/23/18 Prog Note Time: 11:49 - Subjective Pt reports feeling: No change Subjective: Trupti complains of poor activity tolerance and continued nasal congestion. She denies an increased cough, chest pain, nausea, vomiting, diarrhea or dizziness. Objective - Vital Signs/Intake & Output Reviewed Vital Signs: Yes Vital Signs: Vital Signs x48h Temp Pulse Pulse Resp BP Pulse Ox 07/23/18 09:27 95 16 07/23/18 08:00 36.8 C 78 20 134/70 H 98 Intake & Output: Intake & Output 07/20/18 07/21/18 07/22/18 07/23/18 23:59 23:59 23:59 23:59 Intake Total 1600 1500 1880 450 Output Total 400 Balance 1200 1500 1880 450 - Objective General Appearance: positive: No acute distress, Alert, Anxious Eyes Bilateral: positive: Normal inspection, PERRL Eyes: OU Conjunctivae pale ENT: positive: ENT inspection nml, Pharyngeal erythema, Dry mucous membranes Neck: positive: Nml inspection, Thyroid nml, No JVD, Lymphadenopathy (R), Lymphadenopathy (L) Respiratory: positive: Chest non-tender, Wheezes, Rhonchi Cardiovascular: positive: Regular rate & rhythm, No gallop, Tachycardia, Systolic murmur Peripheral Pulses: 1+ Radial (R), 1+ Radial (L) Abdomen: positive: Non-tender, Nml bowel sounds, Other (rounded, soft) Back: positive: Nml inspection Skin: positive: No rash, Warm, Dry Extremities: positive: Non-tender, Pedal edema (mild, BLE), Joint swelling Neurologic/Psychiatric: positive: Oriented x3, CN's nml (2-12), Motor nml, Sensation nml, Weakness, Depressed mood/affect Reflexes: Bicep (R): 3+, Bicep (L): 3+ - Lab Results Fish Bones: 07/21/18 05:35 07/23/18 05:51 Other Labs: Lab Results x24hrs 07/23/18 07/23/18 Range/Units 05:51 05:51 Sodium 136 (135-145) mmol/L Potassium 3.8 (3.5-5.0) mmol/L Chloride 97 L (101-111) mmol/L Carbon Dioxide 35 H (21-32) mmol/L Anion Gap 4.0 L (6-13) BUN 19 (6-20) mg/dL Creatinine 0.4 (0.4-1.0) mg/dL Estimated GFR (MDRD) 159 (>89) Glucose 174 H (70-100) mg/dL Calcium 8.4 L (8.5-10.3) mg/dL Total Bilirubin 0.3 (0.2-1.0) mg/dL AST 25 (10-42) IU/L ALT 21 (10-60) IU/L Alkaline Phosphatase 62 (42-121) IU/L B-Natriuretic Peptide 115 H (5-100) pg/mL Total Protein 6.1 L (6.7-8.2) g/dL Albumin 3.2 (3.2-5.5) g/dL Globulin 2.9 (2.1-4.2) g/dL Albumin/Globulin Ratio 1.1 (1.0-2.2) ABX Reporting Has patient been on IV antibiotics over the past 48 hours?: Yes Assessment/Plan - Problem List (1) Pneumonia Impression: A chest x-ray on admission shows bilateral infiltrates and extensive emphysema. She was started on Rocephin and Levofloxacin IV and this continues. A sputum sample show yeast. She is getting great respiratory care with scheduled nebs, a LABA neb, a bedside rescue inhaler as per her request and now with nasal sprays for her worsening sinusitis. IV steroids are changed to PO prednisone and she should remain on a taper at home. Plan: Continue to monitor and consider imaging if condition worsens. Await sputum culture results. Qualifiers: Pneumonia type: due to unspecified organism Laterality: left Lung location: lower lobe of lung Qualified Code(s): J18.1 - Lobar pneumonia, unspecified organism (2) Chronic sinusitis Impression: The patient likely has this as a consequence to her end stage COPD. She denies previous sinus surgeries, or recent nose bleeding. Her Afrin treatment has and overnight she requested additional treatment, which is contraindicated. She will need at least one week between courses. She stated that she could not breath through her nose. Flonase was also added to be used daily. Plan: continue to monitor, with chronic oxygen use. Qualifiers: Sinusitis location: frontal Qualified Code(s): J32.1 - Chronic frontal sinusitis (3) Severe chronic obstructive pulmonary disease Impression: The patient is oxygen dependent and this pneumonia is a further insult to this end stage disease. She has very little reserve and her efforts are used for eating and going to the bathroom. She was visited by palliative care today for future plans. A medical update was given. She is prescribed budesinide nebs, xopenex nebs, IV antibiotics and continuous oxygen per nasal cannula. Plan: Continue with respiratory support, trilogy machine at the bedside, continue treat acute pneumonia. (4) Oxygen dependent Impression: The patient is prescribed home oxygen at 3-5 L per nasal cannula. She also has a trilogy machine and is reported to be non-compliant with using this. She displays "cloudy thinking" frequently as her blood gases become easily altered and she would benefit from the use of this device. Plan: Continue to encourage use and supplemental oxygen. 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 She has been seen by Dr. Bowles, [facility] [place] [facility]. PET scan and MRI done 06/28, scan results were inconclusive, MRI showed no mets to brain. Neoplasm is in the right lung, multiple areas. She is not a candidate for lung biopsy because of her end stage lung disease. She had an appointment to be seen in the [facility] and the plan is to follow up with another PET scan in 3 months. Patient still plans on seeing four horse hitch driver, Dr Kim Mishra in November. Plan: continue to treat acute pneumonia and provide support. (6) Pulmonary hypertension Impression: The patient's last known echo showed an increase in her right heart pressures with an RVSP at rest at 44 mm Hg. She continues on Spironolactone. She has evidence of this as she has end stage lung disease, oxygen dependent, increased abdominal girth, and chronic, increased BLE edema. The patient has improved BLE. Plan: Continue to monitor urine out put, leg edema and continue oxygen/ respiratory care.
[2018-07-23] MEDS ORDERED: predniSONE 20 MG TABLET PO SCH (17:00)
[2018-07-23] MEDS: ATORVASTATIN 10 MG TABLET PO SCH (21:00)
[2018-07-23] MEDS: [UNRECOGNIZED DRUG - SUPPLY] INH SCH (21:05)
[2018-07-24 06:25] LABS: BASOPHILS # (AUTO) 0.1 10^3/uL (0.0-0.1); BASOPHILS % (AUTO) 0.4 %; EOSINOPHILS # (AUTO) 0.2 10^3/uL (0.0-0.7); EOSINOPHILS % (AUTO) 1.3 %; HGB - HEMOGLOBIN 12.6 g/dL (12.0-16.0); LYMPHOCYTES # (AUTO) 1.1 10^3/uL (1.5-3.5); LYMPHOCYTES % (AUTO) 7.7 %; MEAN CORPUSCULAR HEMOGLOBIN 30.3 pg (27.0-31.0); MEAN CORPUSCULAR VOLUME 91.7 fL (81.0-99.0); MEAN PLATELET VOLUME 7.3 fL (7.9-10.8); MONOCYTES # (AUTO) 0.8 10^3/uL (0.0-1.0); MONOCYTES % (AUTO) 5.8 %; NEUTROPHILS # (AUTO) 12.1 10^3/uL (1.5-6.6); NEUTROPHILS % (AUTO) 84.8 %; PLT - PLATELET COUNT 323 10^3/uL (130-450); RED BLOOD COUNT 4.15 10^6/uL (4.20-5.40); RED CELL DISTRIBUTION WIDTH 14.3 % (12.0-15.0); WHITE BLOOD COUNT 14.3 x10^3/uL (4.8-10.8)
[2018-07-24 06:42] LABS: ALBUMIN 3.2 g/dL (3.2-5.5); ALBUMIN/GLOBULIN RATIO 1.1 (1.0-2.2); BILIRUBIN,TOTAL 0.4 mg/dL (0.2-1.0); CALCIUM 8.2 mg/dL (8.5-10.3); CREATININE 0.4 mg/dL (0.4-1.0); MAGNESIUM 2.3 mg/dL (1.7-2.8)
[2018-07-24] MEDS: BUDESONIDE 0.5 MG/2 ML NEB INH SCH (07:30)
[2018-07-24] MEDS: LEVALBUTEROL 1.25 MG/3 ML NEB INH SCH (07:30)
[2018-07-24] MEDS: SODIUM CHLORIDE FLUSH 0.9% 10 ML SYRINGE IVP SCH ×2 (07:56→08:37)
[2018-07-24] MEDS ORDERED: predniSONE 20 MG TABLET PO SCH (08:00)
[2018-07-24] MEDS: diltiaZEM CD 180 MG CAPSULE PO SCH (08:34)
[2018-07-24] MEDS: FUROSEMIDE 20 MG TABLET PO SCH (08:34)
[2018-07-24] MEDS: FLUCONAZOLE 100 MG TABLET PO SCH ×2 (08:35→08:41)
[2018-07-24] MEDS: LOSARTAN 50 MG TABLET PO SCH (08:35)
[2018-07-24] MEDS: SPIRONOLACTONE 25 MG TABLET PO SCH (08:35)
[2018-07-24] MEDS: cefTRIAXone 2 GM in SODIUM CHLORIDE 0.9% MINIBAG 100 ML IV SCH (08:36)
[2018-07-24] MEDS: ENOXAPARIN 40 MG/0.4 ML SYRINGE SUBQ SCH (08:36)
[2018-07-24] MEDS: POLYETHYLENE GLYCOL 3350 17 GM PACKET PO SCH (08:41)
[2018-07-24] MEDS: FLUTICASONE NASAL SPRAY NAS SCH (08:41)
[2018-07-24] MEDS: OLOPATADINE HCL EACHEYE SCH (08:41)
[2018-07-24] MEDS: levoFLOXacin 750 MG/150 ML 750 MG/150 ML BAG IV SCH (09:15)
[2018-07-24] MEDS: SODIUM CHLORIDE FLUSH 0.9% 10 ML SYRINGE IVP PRN (09:21)
--- NOTE | 2018-07-24 11:05 | Discharge Plan ---
Discharge Plan Disposition: Home, Self Care Condition: Poor Prescriptions: Fluconazole [Diflucan] 100 mg PO DAILY #7 tablet Levofloxacin [Levaquin] 750 mg PO DAILY #5 tablet predniSONE [Deltasone] 20 mg PO [id number] #21 tab Diet: Regular Activity Restrictions: Activity as Tolerated Shower Restrictions: No (fall precaution) Instruction Topics: Levofloxacin tablets, Fluconazole tablets, Prednisone tablets, COPD Dc, ED Pneumonia Adult Additional Instructions or Follow Up instructions: Your symptoms today may be caused by pneumonia and copd exacerbation. While I understand that you want to go home it is important that you return to the emergency department if your symptoms worsen. You will be on a short course of antibiotics, anti-fungal and steroids and it is important that you take your entire course of medications. You may follow up your PCP in 2-3 days, follow up your oncologist and commissions coordinator as out-pt schedule. No Smoking: If you smoke, Please STOP! Call for help. Follow-up with: Kirti Phillips ARNP [Primary Care Provider] - Tomorrow
--- NOTE | 2018-07-24 11:32 | DISCHARGE SUMMARY ---
Discharge Summary Discharge Date: 07/24/18 Discharging Provider: ANAYA Primary Care Provider: Dr Kirti Phillips Condition at Discharge: Poor Discharge Disposition: 01 Home, Self Care Discharge Facility Name: home - DIAGNOSES Admission Diagnoses: (1) Pneumonia (2) Severe chronic obstructive pulmonary disease (3) Neoplasm of uncertain behavior of lung Discharge Diagnoses with Status of Each Condition: (1) Pneumonia pt requested to be d/c to home today. No fever, chill. 97% sats on 4 liter of oxygen as her baseline. pt was O2-dependent at home setting. pt is prescribed Levaquin. Sputum culture shows yeast positive. pt is prescribed Fluconzole (2) Chronic sinusitis stable, no complaints. (3) Severe chronic obstructive pulmonary disease stable, continue home meds regimen, follow up licensed prosthetist/orthotist. 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 she went to bathroom by herself with a walker. - HPI History of Present Illness: refer from Dr. Webb's HPI as the following: she is a patient who was here in April,. At discharge the review of her stay showed: 1. Chronic obstructive pulmonary disease with acute exacerbation, improved but the pt is still SIGNIFICANTLY debilitated, however pt was refusing rehab placement and says she has family members in town who will help her at home. Once her in home care provider came, she was convinced to go to rehab for SNF and she was there for a while. While there she really didn't participate with PT and spent most of her time in bed or chair. 2. Neoplasm of uncertain behavior of trachea, bronchus and lung. Multiple nodules seen in B lungs on CT scan. She has been seen by Dr. Bowles, [facility]. PET scan and MRI done 06/28, scan results were inconclusive, MRI showed no mets to brain. Neoplasm is in the right lung, multiple areas. She is not a candidate for lung biopsy because of her end stage disease. She was to be seen today in the [facility] and the plan is to follow up with another PET scan in 3 months. Patient still plans on seeing licensed prosthetist/orthotist, Dr Kim Mishra in November ; this might have been cancelled by the MAC. 3. Essential hypertension- continued norvasc and diovan 4. Anxiety disorder- continue PRN xanax. 5. Chronic anemia- B12, Iron levels WNL. Likely anemia of chronic disease. Hgb 11.7 6. Hyponatremia - correcting/corrected 7. Dupuytren's contractures of both hands- stable Since home she has had to use her Trilogy 3-4 times a day and is only getting worse with decreased endurance and worsening body and leg edema. She is followed by Palliative care and has been seen regularly. She denies fever, sweats, hemoptysis. But has the same cough and severe resting sob. Tonight, as she was getting ready for bed, she felt acute more sob. She did her albuterol and it didn't help. She decided to come to the ER. - ALLERGIES Allergies/Adverse Reactions: Allergies Allergy/AdvReac Type Severity Reaction Status Date / Time No Known Drug Allergies Allergy Verified 07/18/18 00:42 - MEDICATIONS Home Medications: Ambulatory Orders Medication Instructions Recorded Confirmed Albuterol Sulfate [Proair Hfa 2 puffs INH Q4H PRN 08/31/16 07/18/18 Inhaler] Multivitamin [Theragran] 1 each PO DAILY #0 06/06/17 07/18/18 Fluticasone Propionate 2 spray PAULINE DAILY PRN 09/15/17 07/18/18 Loratadine 10 mg PO DAILY MDD 1 capsule 04/11/18 07/18/18 Valsartan [Diovan] 80 mg PO DAILY 04/21/18 07/18/18 Fluticasone/Salmeterol [Advair 1 puffs INH BID #1 blst.w.dev 04/23/18 07/18/18 500-50 Diskus] Ipratropium/Albuterol [Duoneb] 3 ml INH RTQID neb 04/24/18 07/18/18 LORazepam [Ativan] 0.5 mg PO Q6HR PRN 06/20/18 07/18/18 Morphine Sulfate [Morphine Sulf 5 mg PO TID 06/20/18 07/18/18 Oral (Roxanol)] Atorvastatin Calcium 20 mg PO QPM 07/18/18 07/18/18 Polyethylene Glycol 3350 [Miralax] 17 gm PO DAILY 07/18/18 07/18/18 amLODIPine [Norvasc] 5 mg PO DAILY 07/18/18 07/18/18 Fluconazole [Diflucan] 100 mg PO DAILY #7 tablet 07/24/18 Levofloxacin [Levaquin] 750 mg PO DAILY #5 tablet 07/24/18 predniSONE [Deltasone] 20 mg PO [id number] #21 tab 07/24/18 - PHYSICAL EXAM AT DISCHARGE General Appearance: positive: No acute distress, Alert. negative: Lethargic Eyes Bilateral: positive: Normal inspection, PERRL, No lid inflammation, Conjunctivae nml ENT: positive: ENT inspection nml, Pharynx nml, No signs of dehydration. negative: Purulent nasal drainage, Pharyngeal erythema, Oral lesions Neck: positive: Nml inspection, Thyroid nml, No JVD, Trachea midline. negative : Thyromegaly, Lymphadenopathy (R), Lymphadenopathy (L), Stiff neck, Swelling/ bruising, Tracheal deviation Respiratory: positive: Chest non-tender, No respiratory distress. negative: Wheezes, Rales Cardiovascular: positive: Regular rate & rhythm, No murmur, No gallop. negative : Irregularly irregular, Extrasystoles, Tachycardia, Bradycardia, JVD present, Systolic murmur, Diastolic murmur Peripheral Pulses: positive: 2+ Abdomen: positive: Non-tender, No organomegaly, Nml bowel sounds, No distention. negative: Tenderness, Guarding, Rebound Back: positive: Nml inspection. negative: CVA tenderness (R), CVA tenderness (L ) Skin: positive: Color nml, No rash, Warm, Dry. negative: Cyanosis, Diaphoresis , Pallor Extremities: positive: Non-tender, Full ROM, Nml appearance. negative: Calf tenderness, Joint swelling, Florecita's sign/cords Neurologic/Psychiatric: positive: Oriented x3, Sensation nml, Mood/affect nml. negative: Weakness, Sensory loss, Facial droop, Slurred/abnml speech, Depressed mood/affect - LABS Result Diagrams: 07/24/18 05:40 07/24/18 06:20 - FOLLOW UP Follow Up: Your symptoms today may be caused by pneumonia and copd exacerbation. While I understand that you want to go home it is important that you return to the emergency department if your symptoms worsen. You will be on a short course of antibiotics, anti-fungal and steroids and it is important that you take your entire course of medications. You may follow up your PCP in 2-3 days, follow up your oncologist and licensed prosthetist/orthotist as out-pt schedule. - TIME SPENT Time Spent in Discharge (Minutes): 50
[2018-07-24 13:24] VITALS: BP 138/67
== END 2018-07-24 14:57 | disposition home or self-care (01) | DRG 190 ==
LOC: EDUNIT# → SUPCPDRO 00:33 → ED 00:33 → MS2 05:33
PROVIDERS: ADMIT Specialist; ATTEND Nurse Practitioner Gerontology
DX: J44.0 Chronic obstructive pulmonary disease with (acute) lower respiratory infection (principal); J18.9 Pneumonia, unspecified organism; J84.10 Pulmonary fibrosis, unspecified; B37.1 Pulmonary candidiasis; E87.1 Hypo-osmolality and hyponatremia; J96.12 Chronic respiratory failure with hypercapnia; J96.11 Chronic respiratory failure with hypoxia; J44.1 Chronic obstructive pulmonary disease with (acute) exacerbation; I10 Essential (primary) hypertension; I27.20 Pulmonary hypertension, unspecified; R00.0 Tachycardia, unspecified; J32.1 Chronic frontal sinusitis; F41.9 Anxiety disorder, unspecified; D38.1 Neoplasm of uncertain behavior of trachea, bronchus and lung; M72.0 Palmar fascial fibromatosis [Dupuytren]; Z83.6 Family history of other diseases of the respiratory system; Z99.81 Dependence on supplemental oxygen; Z79.891 Long term (current) use of opiate analgesic; Z79.51 Long term (current) use of inhaled steroids; Z87.891 Personal history of nicotine dependence
CPT/HCPCS: 36415; 71045; 80048; 80053; 83690; 83735; 83880; 84484; 85025; 87040; 87070; 87205; 93005; 94640; 96365; 96366; 96368; 96372; 96375; 99233; 99284; 99285

== ENCOUNTER 2018-07-25 13:50 | Outpatient (CLI) | payer MEDICARE, MEDICAID ==
--- NOTE | 2018-07-25 18:13 | CONSULTATION NOTE ---
Palliative Care Follow Up - Referral Referring Provider: Kirti LANE Time of Visit: 07/25/2018. 13:50 -14:30 Referral setting: Home (Patient seen in home setting due to taxing and considerable effort required to leave the home due to significant breathlessness secondary to end-stage lung disease, pulmonary fibrosis, and lung mass.) Referral Reason: Pneumonia follow up from hospital - Information Sources Records reviewed: Previous records reviewed History/Review of Systems obtained from: Patient, Caregiver Exam limitations: Clinical condition (difficulty speaking due to severe chronic SOA) - History of Present Illness Update Brief HPI Update: -Reserved and introverted 68-year-old woman with severe end- stage COPD and pulmonary fibrosis, pulmonary hypertension, and probable lung cancer. -She was hospitalized in April, discharged home but her LAURA caregiver convinced her to go [facility]. Multiple nodlues were seen in bilat lungs, results were inconclusive, MRI revealed no mets to brain. 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 She is not a candidate for lung biopsy due to her end-stage lung disease. -Subsequent PET scan and MRI on 06/28/18 were inconclusive for cancer (there was no brain mets), and the patient is not a candidate for a biopsy. -She was scheduled to see Dr Bowles, oncologist on 07/18 but was hospitalized with pneumonia and did not see her. -She discharged from hospital 07/24/18. -Today she is back at home. She has not received the new medications prescribed at her 07/18-07/24 hospital stay: Fluconazole for positive throat culture for yeast , levofloxacin for pneuonia, and prednisone taper. They DC'd her furosemide and potassium, restarted amlodipine. -LAURA caregiver Lizzette has just arrived and [facility], and will also call the [facility] to reschedule the oncology appointment with Dr Bowles. Since PET scans were inconclusive, Dr Bowles's plans were to schedule a follow up scan in 3 months. -Patient still plans to see technician support engineer Dr Kim Mishra. She wants follow up with a technician support engineer to "check on things," she is not necessarily considering a lung transplant. -Patient's temp is slightly elevated, she reports some feeling of flushing. Social History - Living Situation Living arrangement: At home Living Situation: Alone Support System: She has LAURA caregiver support in the afternoons. She coordinates and drives her to medical appointments, acts as her advocate and organizes her medications Her son and daughter live locally; patient claims they do not get along well. Her sister lives in [place] and is her DPOA. Medications/Allergies - Medications Home Medications: Ambulatory Orders Medication Instructions Recorded Confirmed Albuterol Sulfate [Proair Hfa 2 puffs INH Q4H PRN 08/31/16 07/25/18 Inhaler] Multivitamin [Theragran] 1 each PO DAILY #0 06/06/17 07/25/18 Fluticasone Propionate 2 spray PAULINE DAILY PRN 09/15/17 07/25/18 Loratadine 10 mg PO DAILY MDD 1 capsule 04/11/18 07/25/18 Valsartan [Diovan] 80 mg PO DAILY 04/21/18 07/25/18 Fluticasone/Salmeterol [Advair 1 puffs INH BID #1 blst.w.dev 04/23/18 07/25/18 500-50 Diskus] Ipratropium/Albuterol [Duoneb] 3 ml INH RTQID neb 04/24/18 07/25/18 LORazepam [Ativan] 0.5 mg PO Q6HR PRN 06/20/18 07/25/18 Morphine Sulfate [Morphine Sulf 5 mg PO TID 06/20/18 07/25/18 Oral (Roxanol)] Atorvastatin Calcium 20 mg PO QPM 07/18/18 07/25/18 Polyethylene Glycol 3350 [Miralax] 17 gm PO DAILY 07/18/18 07/25/18 amLODIPine [Norvasc] 5 mg PO DAILY 07/18/18 07/25/18 Fluconazole [Diflucan] 100 mg PO DAILY #7 tablet MDD For 07/24/18 07/25/18 7 days only Levofloxacin [Levaquin] 750 mg PO DAILY #5 tablet MDD For 07/24/18 07/25/18 5 days predniSONE [Deltasone] 20 mg PO [id number] #21 tab MDD 07/24/18 07/25/18 Day 8-10, 20mg per day predniSONE [Deltasone] 40 mg PO [id number] MDD Day 5-4, 07/25/18 07/25/18 40mg per day predniSONE [Deltasone] 60 mg PO [id number] MDD Day 1-4, 07/25/18 07/25/18 60mg per day - Allergies Allergies/Adverse Reactions: Allergies Allergy/AdvReac Type Severity Reaction Status Date / Time No Known Drug Allergies Allergy Verified 07/18/18 00:42 Review of Systems - Constitutional Constitutional: reports: Chills, Weakness, Weight stable - Ears, Nose & Throat Ears, Nose & Throat: reports: Nasal congestion - Cardiovascular Cardiovascular: denies: Chest pain - Respiratory Respiratory: reports: Sputum production, SOB at rest, SOB with exertion - Gastrointestinal Gastrointestinal: denies: Constipation - Musculoskeletal Musculoskeletal: reports: Assistive devices (Walker) Physical Exam - Vital Signs Temperature: 97.7 F Pulse Rate: 99 O2 Saturation: 98 (4L O2) Blood Pressure: 150/72 - Physical Exam General Appearance: positive: No acute distress, Alert Eyes Bilateral: positive: No lid inflammation, Conjunctivae nml, No scleral icterus Cardiovascular: positive: No murmur, Tachycardia Respiratory: positive: Diminished throughout (Worse on Right lung), Wheezes Extremities: positive: Pedal edema Neurologic/Psychiatric: positive: Oriented x3 Palliative Care - POLST Patient has POLST: No - Palliative Care Discussion: I asked patient about a POLST, and provided education on CPR vs DNR. Patient wants to speak with her son and daughter, who aren't getting along. I did encourage her that we could fill out together. She wants "a few days to think about it." Patient is consistently resistant to discussing POLST and end of life. She remains full code. Impression and Recommendations - Palliative Care Impression: Patient with worsening, end-stage COPD, pulmonary fibrosis, and neoplasm of uncertain behavior of trachea, bronchus, and lung was hospitalized 07/18/18- for pneumonia. She missed her 07/[address] Bowles who had planned to have a follow up PET scan in 3 months. The recent PET scan is inconclusive, and the patient is not a candidate for a lung biopsy. Palliative care will continue to provide oversight and support to help with the coordination of care and symptom management. Recommendations/Counseling Done: Pneumonia: Released from hospital yesterday with Levaquin 750mg daily x 5 days. Sputum culture is positive for yeast, hospital started fluconozole 100mg daily x 7 days. Also started prednisone 20mg taper: 60mg daily days 1-4. 40mg daily days 5-. 20mg daily days 8-10. LAURA caregiver will picking machine operator the medications at pharmacy. Neolasm of uncertain behavior of trachea, bronchus, and lung: Patient missed oncology appointment due to admission to hospital. PET scan 06/28 was inconclusive, MRI revealed no mets to brain. Dr Bowles's plan is to follow up with another PET scan in 3 months. Patient wants to also follow up technician support engineer , Dr Kim Mishra in November, to see how she is doing. Chronic sinusitis: Continue fluticasone. Wrote new script for loratadine daily PRN since she was out. LE edema: Improved after hospitalization. Furosemide and potassium DC'd by hospital, amlodpine 5mg restarted. HTN: Continue valsartan and amlodipine. Advanced care planning: Patient has no POLST. CPR and DNR discussed at length with patient, she still wants to "think about it." Patient is consistently resistant to speaking about end of life and POLST. She does have a DPOA: her sister. Time Spent: 40 minutes were spent with more than 50% of this time spent on counseling, education, anticipatory guidance, and coordination of care.
== END 2018-07-25 13:51 | disposition home or self-care (01) ==
LOC: PC 13:50
PROVIDERS: ATTEND Nurse Practitioner
DX: Z51.5 Encounter for palliative care (principal); J44.0 Chronic obstructive pulmonary disease with (acute) lower respiratory infection; J18.9 Pneumonia, unspecified organism; J32.9 Chronic sinusitis, unspecified; R60.0 Localized edema; I10 Essential (primary) hypertension; J84.10 Pulmonary fibrosis, unspecified; I27.20 Pulmonary hypertension, unspecified; D38.1 Neoplasm of uncertain behavior of trachea, bronchus and lung; B37.0 Candidal stomatitis; Z79.899 Other long term (current) drug therapy
CPT/HCPCS: 99349

== ENCOUNTER 2018-08-14 16:30 | Outpatient (CLI) | payer MEDICARE, MEDICAID ==
--- NOTE | 2018-08-14 20:42 | CONSULTATION NOTE ---
Palliative Care Follow Up - Referral Referring Provider: Kirti LANE Time of Visit: 08/14/2018. 15:20 - 16:30 Referral setting: Home (Seen in home setting due to taxing and considerable effort required to leave the home due to significant breathlessness secondary to end-stage lung disease, pulmonary fibrosis, and lung mass.) - Information Sources Records reviewed: Previous records reviewed History/Review of Systems obtained from: Patient, Caregiver Exam limitations: Clinical condition (chronic SOA impairs her communication) - History of Present Illness Update Brief HPI Update: -Reserved and introverted 68-year-old woman with severe end- stage COPD and pulmonary fibrosis, pulmonary hypertension, and probable lung cancer. -She was hospitalized in April, discharged initially to home but then [facility]. -Subsequent PET scan and MRI on 06/28/18 were inconclusive for cancer (there was no brain mets), and the patient is not a candidate for a biopsy. 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 She is not a candidate for lung biopsy due to her end-stage lung disease. -On 07/18 she was hospitalized with pneumonia and was unable to attend an oncology consultation with Dr Bowles scheduled for that day. -She discharged from hospital 07/24/18. -Yesterday she missed a post-hospitalization follow up visit to her PCP because of her SOA, she was unable to get ready to make it to the visit in time. -Patient notes that her SOA is worsening, with SOA getting from chair to her bed. She notes this worsening happened since she finished the prednisone taper last week. -She now sleeps in her recliner. She self-transfers from recliner and is ambulatory with her walker. -She continues to use inhalers, nebulizer, trilogy and continuous oxygen. -She is sporadic with her Trilogy use and refuses to use the mask at night due to claustrophobia. -She says she uses morphine still, but her caregiver does not see her using it, plus when she has used it in the past she sleeps a lot, which she is not doing these days. She uses her albuterol inhaler regularly. -She has a LAURA claim clerk evaluation scheduled for tomorrow. Her new claim clerk is Berta. -Her hope is to remain home and to qualify for increased caregiving hours to help her remain at home. -She realizes she is declining but still wants to follow up with the oncologist. She is "not ready yet" for Hospice. -She and Cady have been unclear about medications since she DCd from hospital. We went through her medications which appear disorganized, some in a red box, many on her coffee table, current medications mixed in with old medications, the mediset she uses had only one day worth of pills in it, it was unclear who loads the mediset. I suggested altering her system, perhaps having another box for medications she is not using, and creating a computer list that is easily updateable by Lizzette. I reconciled my list with their list and the medications the patient currently uses. Keeping track of her medications is an ongoing process. Social History - Living Situation Living arrangement: At home Living Situation: Alone Support System: She has Lizzette her LAURA caregiver who works in the afternoons. She has no LAURA caregiving on the weekends but is trying to get her children (son and daughter, both live on the [place]) to come and help her. She has a LAURA assessment scheduled for tomorrow. Her sister is her POA and lives off [place], either in [place] or [place]: Tameka Stock [phone] Patient's son is Ronnie Gurrola, [phone]. Medications/Allergies - Medications Home Medications: Ambulatory Orders Medication Instructions Recorded Confirmed Albuterol Sulfate [Proair Hfa 2 puffs INH Q4H PRN 08/31/16 08/15/18 Inhaler] Multivitamin [Theragran] 1 each PO DAILY #0 06/06/17 08/15/18 Fluticasone Propionate 2 spray PAULINE DAILY PRN 09/15/17 08/15/18 Loratadine 10 mg PO DAILY MDD 1 capsule 04/11/18 08/15/18 Valsartan [Diovan] 80 mg PO DAILY 04/21/18 08/15/18 Fluticasone/Salmeterol [Advair 1 puffs INH BID #1 blst.w.dev 04/23/18 08/15/18 500-50 Diskus] Ipratropium/Albuterol [Duoneb] 3 ml INH RTQID neb 04/24/18 08/15/18 LORazepam [Ativan] 0.5 mg PO Q6HR PRN 06/20/18 07/25/18 Morphine Sulfate [Morphine Sulf 5 mg PO TID 06/20/18 08/15/18 Oral (Roxanol)] Atorvastatin Calcium 20 mg PO QPM 07/18/18 08/15/18 Polyethylene Glycol 3350 [Miralax] 17 gm PO DAILY 07/18/18 08/15/18 amLODIPine [Norvasc] 5 mg PO DAILY 07/18/18 08/15/18 Cholecalciferol (Vitamin D3) 2,000 unit PO DAILY 08/15/18 08/15/18 [Vitamin D3] Olopatadine HCl [Pataday] 1 drops OP BID 08/15/18 08/15/18 Omeprazole [PriLOSEC] 20 mg PO DAILY MDD Take while 08/15/18 08/15/18 taking steroids predniSONE [Deltasone] 20 mg PO 08/15/18 - Allergies Allergies/Adverse Reactions: Allergies Allergy/AdvReac Type Severity Reaction Status Date / Time No Known Drug Allergies Allergy Verified 07/18/18 00:42 Review of Systems - Constitutional Constitutional: reports: Other (She doesn't know if she's gained or lost weigh). denies: Poor appetite - Cardiovascular Cardiovascular: reports: Exertional dyspnea, Decr. exercise tolerance. denies: Chest pain - Respiratory Respiratory: reports: SOB at rest (worsening), SOB with exertion (worsening). denies: Cough - Gastrointestinal Gastrointestinal: denies: Constipation, Change in bowel habits, Poor appetite - Genitourinary Genitourinary: denies: Incontinence - Musculoskeletal Musculoskeletal: reports: Assistive devices (walker). denies: Transfer issues Physical Exam - Vital Signs Temperature: 97.3 F Pulse Rate: 115 O2 Saturation: 99 Blood Pressure: 171/82 - Physical Exam General Appearance: positive: No acute distress, Alert, Other (brewer face) Eyes Bilateral: positive: EOMI, No lid inflammation, Conjunctivae nml, No scle ral icterus ENT: positive: No signs of dehydration Neck: positive: Trachea midline Cardiovascular: positive: Regular rate & rhythm, No murmur, Tachycardia (chronic) Respiratory: positive: Chest non-tender, Diminished throughout Extremities: positive: Pedal edema (+2, feet dependent) Neurologic/Psychiatric: positive: Oriented x3, Flat affect Palliative Care - POLST Patient has POLST: No Dyspnea: Comment (chronic, worsening with exertion, worsened after prednisone taper ended) Performance Status: worsening SOA, still able to ambulate but much slower, needs more rest - Palliative Care Discussion: Patient wants to remain at home, and she and her caregiver Lizzette talk about this and try to come up with a plan so she can get the help she needs. Cady currently comes weekdays in the afternoon, and she is offering to "give" some of her hours for a home care physical therapist to come in the mornings. The patient currently has no caregivers on the weekends and she is trying to [place], [place] weekends to help her. The patient has a new claim clerk, Berta, and is expecting an assessment tomorrow from [facility] to evaluate if she qualifies for increased LAURA hours. The patient does say she feels her health and lungs are getting worse. She wants to do every thing she can to remain at home and does not want to move to a facility. We discussed at length what it would take to keep her safe here at home, and I asked her to consider what her next steps would be in case her current plan (increased LAURA caregiver hours and her children helping out at home) does not work. She states her children don't like [facility], [place] in [place] ability to research and visit them. She does admit that her hospital doctors gave her poor prognosis, but she states she is not ready for Hospice and intends to follow up with oncology. She remains hopeful despite knowing her condition is worsening. I followed up with the [facility] to confirm the date and time of her appointment: Sep 04 for lab draw at the [facility], and Sep 05 2:40pm (check in 2:25) at [facility] with Dr Bowles. Impression and Recommendations - Palliative Care Impression: Patient with worsening SOA secondary to end-stage COPD, pulmonary fibrosis, and neoplasm of uncertain behavior of trachea, bronchus, and lung. We will restart oral steroids. She missed her 08/13 post-hospitalization PCP appointment due to increased SOA and not being able to get ready and out the door in time.The oncology appointment she missed due to being hospitalized is rescheduled for September 05, with labs drawn Sep 04. Palliative care will continue to provide oversight and support to help with the coordination of care and symptom management. Recommendations/Counseling Done: Neoplasm of uncertain behavior of trachea, bronchus, and lung: Patient rescheduled her oncology appointment to Sep 05 at 2:40pm (checkin 2:25pm) with Dr Bowles in the [facility]. On Sep 04 patient is to go to [facility] for the blood draw. I confirmed these dates/times with caregiver Cady, who organizes the patient's schedule. Increased dyspnea: Worse in past few days; prednisone taper completed last week or so. Consulted with PCP Kirti Phillips who agreed to my plan to restart oral steroid. Start prednisone 20mg daily with food. Also restart omeprazole 20mg daily for protection of gut. Started DuoNeb 0.5mg/2.5mg per 3mL QID PRN. She is currently using just albuterol nebulizer. Also wrote her another script for nebulizer cups; the first one got lost. Chronic sinusitis: Continue fluticasone and loratadine daily PRN. Wrote a new script for olopatadine 0.2% drops in each eye BID daily for allergic reaction, she had stopped these drops after hospitalization, mistakenly thinking they were for dry eyes. LE edema: Improved. She hasn't been taking amlodipine 5mg since discharge since it can exacerbate pedal edema, but we discussed it, and she will restart it and monitor her pedal edema. She is not currently on diuretics. Recommended LE elevation which her caregiver reports that she does quite frequently; she does not use compression currently HTN: BP elevated: 171/82. Continue valsartan and restart amlodipine mg daily. (She had Advanced care planning: Patient has no POLST, and is consistently resistant to discussing this. Patient says she is "not ready" for hospice. Current goal is to remain at home, and increase/alter her LAURA caregiving hours so she has more caregiving support. Part of this plan is for her children to come help on the weekends. [facility] is coming tomorrow to the patient's home for an assessment. I left a message with former claim clerk, Marilynn, to help me connect with her new claim clerk, Berta. Patient recognizes her condition/dyspnea is worsening and wants to see the oncologist before making any further decisions or plans. Her DPOA is her sister. It is unclear how closely involved her sister is in her life or in her decision making process. Sister: Tameka Stock [phone] Son: Ronnie Gurrola [phone] Follow up 1-2 weeks on SOA. Time Spent: 70 minutes were spent with more than 50% of the time spent on counseling, education, anticipatory guidance, and coordination of care around medication reconciliation and management and her end-stage lung disease.
== END 2018-08-14 16:31 | disposition home or self-care (01) ==
LOC: PC 16:30
PROVIDERS: ATTEND Nurse Practitioner
DX: Z51.5 Encounter for palliative care (principal); D38.1 Neoplasm of uncertain behavior of trachea, bronchus and lung; J44.9 Chronic obstructive pulmonary disease, unspecified; J84.10 Pulmonary fibrosis, unspecified; J32.9 Chronic sinusitis, unspecified; R60.0 Localized edema; I10 Essential (primary) hypertension; I27.20 Pulmonary hypertension, unspecified; F40.240 Claustrophobia; Z91.19 Patient's noncompliance with other medical treatment and regimen; Z99.81 Dependence on supplemental oxygen; Z87.01 Personal history of pneumonia (recurrent); Z79.899 Other long term (current) drug therapy; Z79.51 Long term (current) use of inhaled steroids
CPT/HCPCS: 99350

== ENCOUNTER 2018-08-23 11:20 | Outpatient (CLI) | payer MEDICARE, MEDICAID ==
--- NOTE | 2018-08-23 18:54 | CONSULTATION NOTE ---
Palliative Care Follow Up - Referral Referring Provider: Kirti LANE Time of Visit: 11:20 - 12:00 Referral setting: Home (Seen in home setting due to taxing and considerable effort required to leave the home due to significant breathlessness secondary to end-stage lung disease, pulmonary fibrosis, and lung mass.) Referral Reason: Follow up medication change from last week - Information Sources Records reviewed: Previous records reviewed History/Review of Systems obtained from: Patient, Caregiver Exam limitations: Clinical condition (SOA, labored speech) - History of Present Illness Update Brief HPI Update: -Reserved and introverted 68-year-old woman with severe end- stage COPD and pulmonary fibrosis, pulmonary hypertension, and 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 -Subsequent PET scan and MRI on 06/28/18 were inconclusive for cancer (there was no brain mets). -Cancer cannot be verified since she is not a candidate for lung biopsy due to her end-stage lung disease. -She was rehospitalized 07/18/10 - 07/24/18 with pneumonia. -In the week after hospitalization her SOA worsened once prednisone taper off had completed. -I restarted her on 20mg prednisone daily. -SOA is still quite severe. She is on maximum treatment, 4L continuous oxygen, Trilogy respirator throughout the day (but not at night due to claustrophobia from the mask), nebulizer 4-5x daily, morphine 3-4x daily, plus her inhalers. She becomes severely SOA with any movement. -She has an initial oncology consultation on Sep 05 at the [facility] with Dr Bowles. She missed the first appointment when she was hospitalized 07/18/18. -Her current caregiver, Lizzette, is resigning. Her last day is Sep 05 -- she will transport the patient to her oncology appt. -Her new caregiver, Reji, will take the patient to the Sep 04 blood draw at the [facility]. -Her new immigration case worker Berta is in the process of trying to increase her [employer] caregiving hours. -Patient's goals are to stay at home and continue to pursue workup regarding the masses in her lungs. -She appears to have little support from her two children or her sister. Social History - Living Situation Living arrangement: At home Living Situation: Alone Support System: Her current caregiver, lizzette, is resigning in 2 weeks. On her last day with the patient, she will take her to the oncology appointment. She has been extremely supportive of the patient. -New caregiver Reji has started, working Mon-Fridays in the mornings. -Patient's two adult children both live on [facility] but do not appear very involved in her life. Her sister has been assigned as DPOA but neither I nor the caregiver has had contact. Patient declines having palliative care speak with family members. Medications/Allergies - Medications Home Medications: Ambulatory Orders Medication Instructions Recorded Confirmed Albuterol Sulfate [Proair Hfa 2 puffs INH Q4H PRN 08/31/16 08/15/18 Inhaler] Multivitamin [Theragran] 1 each PO DAILY #0 06/06/17 08/15/18 Fluticasone Propionate 2 spray PAULINE DAILY PRN 09/15/17 08/15/18 Loratadine 10 mg PO DAILY MDD 1 capsule 04/11/18 08/15/18 Valsartan [Diovan] 80 mg PO DAILY 04/21/18 08/15/18 Fluticasone/Salmeterol [Advair 1 puffs INH BID #1 blst.w.dev 04/23/18 08/15/18 500-50 Diskus] Ipratropium/Albuterol [Duoneb] 3 ml INH RTQID neb 04/24/18 08/15/18 LORazepam [Ativan] 0.5 mg PO Q6HR PRN 06/20/18 07/25/18 Morphine Sulfate [Morphine Sulf 5 mg PO TID 06/20/18 08/15/18 Oral (Roxanol)] Atorvastatin Calcium 20 mg PO QPM 07/18/18 08/15/18 Polyethylene Glycol 3350 [Miralax] 17 gm PO DAILY 07/18/18 08/15/18 amLODIPine [Norvasc] 5 mg PO DAILY 07/18/18 08/15/18 Cholecalciferol (Vitamin D3) 2,000 unit PO DAILY 08/15/18 08/15/18 [Vitamin D3] Olopatadine HCl [Pataday] 1 drops OP BID 08/15/18 08/15/18 Omeprazole [PriLOSEC] 20 mg PO DAILY MDD Take while 08/15/18 08/15/18 taking steroids predniSONE [Deltasone] 20 mg PO 08/15/18 - Allergies Allergies/Adverse Reactions: Allergies Allergy/AdvReac Type Severity Reaction Status Date / Time No Known Drug Allergies Allergy Verified 07/18/18 00:42 Review of Systems - Constitutional Constitutional: reports: Weight stable - Cardiovascular Cardiovascular: reports: Edema (bilateral LEs), Decr. exercise tolerance - Respiratory Respiratory: reports: SOB at rest, SOB with exertion - Genitourinary Genitourinary: denies: Incontinence - Musculoskeletal Musculoskeletal: reports: Assistive devices (walker. must use it to sit and rest with any minimal exertion). denies: Transfer issues Physical Exam - Vital Signs Temperature: 96.8 F Pulse Rate: 102 (chronically elevated) O2 Saturation: 96 (4L) Blood Pressure: 128/72 - Physical Exam General Appearance: positive: No acute distress, Alert Eyes Bilateral: positive: EOMI, No lid inflammation, Conjunctivae nml, No scleral icterus ENT: positive: No signs of dehydration, Other (puffy in face) Respiratory: positive: Diminished throughout (severely), Other (patient with worsening, chronic, labored, pursed lip breathing). negative: Breath sounds nml Skin: positive: Pallor Extremities: positive: Pedal edema (2+ on feet and ankles. Patient is not wearing 2-layer compression wraps this morning.) Neurologic/Psychiatric: positive: Oriented x3, Flat affect Palliative Care - POLST Patient has POLST: No Performance Status: -Decreased functionality due to severe, generally declining SOA. She remains in the recliner day and night. She is still able to ambulate to toilet and kitchen, with frequent rests on the walker. -She is using her respiratory tools and meds to the maximum: Trilogy respirator throughout the day, nebulizer 4-5x daily, morphine 3-4x daily, and her inhalers. She doesn't use the Trilogy at night due to the mask and her claustrophobia. The claustrophobia extends to her not being able to drink from cups -- she can't tolerate her nose being inside a cup, glass, or mug. She uses a straw to drink fluids. - Palliative Care Discussion: Patient's goal is to remain home. She is dependent on the support of her LAURA caregiver and has a new caregiver, Reji, on board. Her very supportive caregiver, Lizzette, has resigned and her last day is in two weeks. Lizzette and I spoke and she "couldn't take" the stress and frustration of the patient's situation anymore. The patient is evasive about talking about the future, and where she thinks her disease is going. She does acknowledge worsening SOA. She does acknowledge the two hospitalists who have told her (to paraphrase it) there is nothing more to be done or new/different treatments. The salient point for her is that they were rude. It is difficult to ascertain just what she does understand and retain about her disease and prognosis. She will mention that maybe there are other drugs that could help, like those advertised on TV. We discussed this and it became clear that she had not actually ever talked about this prognosis with her son, nor about goals of care. She consistently declines having palliative care speak with her family members. I asked her what she was expecting from the visit with the oncologist, and she didn't have an answer. She also didn't have any questions or concerns she wanted to ask the oncologist. I encouraged her to think about it and write questions and concerns down and take them to the appointment. I also spoke with Lizzette about this. The patient's hope and plan is to have enough LAURA caregiving support during the week, and then help from her children over the weekend so that she can remain in her home. However, she says that her daughter doesn't have transportation, and can't take the bus from [place] to [place]. Her son lives in [place], she says he will come to help her whenever needed. But, apparently, he might be going to half-way for 2-3 months, for multiple DUIs. The patient confirmed that when she has another episode of SOA or respiratory distress, she would want to go to the hospital. Her oncology appointment at the [facility] is Sep 05 2:40pm (check in 2:25) at [facility] with Dr Bowles. She goes on Sep 04 for the blood draw at the [facility]. Impression and Recommendations - Palliative Care Impression: Patient with worsening SOA secondary to end-stage COPD, pulmonary fibrosis, and neoplasm of uncertain behavior of trachea, bronchus, and lung. We will restart oral steroids. Her caregiving situation is in flux at the moment, with a new caregiver coming on board, and uncertainty whether her son will be able to offer support over the weekends. Patient is reluctant to discuss goals of care but does want to purse work up with oncology. Palliative care will continue to provide oversight and support to help with the coordination of care and symptom management. Recommendations/Counseling Done: Neoplasm of uncertain behavior of trachea, bronchus, and lung: Oncology appointment Sep 05 at 2:40pm (checkin 2:25pm) with Dr Bowles in the [facility]. Current caregiver Lizzette will transport her. On Sep 04 patient is to go to [facility] clinic for the blood draw. New caregiver Reji will take her. Increased dyspnea: Generally worsening. I will continue the 20mg prednisone daily along with omeprazole 20mg daily for protection of gut. Insurance has not ok'd the duoneb script, but patient has albuterol nebulizer she is using. HTN: BP today is 128/72, the lowest I've ever seen it. She has restarted amlodipine and continues valsartan. LE edema: No change. She is not wearing her double layer compression today, it's unclear if or how frequently she is using it. Reiterated the importance of elevation and compression. Provided education that amlodipine increases LE edema Advanced care planning: She hopes to increase LAURA caregiving hours during the week and have her children, actually just her son, be available to provide support over the weekends. But she has told her caregiver he might go to half-way for 2-3 months. She confirmed she is willing to go back to hospital as needed for future respiratory or other emergencies. She declines palliative care partner in communicating with family members. Follow up in 2 weeks re: oncology appointment. Time Spent: 40 minutes were spent with more than 50% of the time spent on counseling, education, anticipatory guidance, and coordination of care regarding end-stage lung disease
== END 2018-08-23 11:21 | disposition home or self-care (01) ==
LOC: PC 11:20
PROVIDERS: ATTEND Nurse Practitioner
DX: Z51.5 Encounter for palliative care (principal); J44.9 Chronic obstructive pulmonary disease, unspecified; J84.10 Pulmonary fibrosis, unspecified; D38.1 Neoplasm of uncertain behavior of trachea, bronchus and lung; I10 Essential (primary) hypertension; R60.0 Localized edema; I27.20 Pulmonary hypertension, unspecified; Z87.01 Personal history of pneumonia (recurrent); Z99.81 Dependence on supplemental oxygen; Z79.899 Other long term (current) drug therapy; F40.240 Claustrophobia; Z91.19 Patient's noncompliance with other medical treatment and regimen
CPT/HCPCS: 99349

== ENCOUNTER 2018-09-13 15:39 | Emergency (ER) | payer MEDICARE, MEDICAID ==
--- NOTE | 2018-09-13 16:10 | ED Physician Documentation ---
PD HPI DYSPNEA - Stated complaint Stated Complaint: SOA - Chief complaint Chief Complaint: Resp - History obtained from History obtained from: Patient - History of Present Illness Timing - onset: How many days ago (few) Timing - onset during: Light activity Timing - details: Gradual onset (she has had increasing wheeze, associated with some cough.) Inciting event(s): URI (some cough and congestion the past few days.). No: Out of meds Associated symptoms: Cough, Wheezing. No: Fever, Chest pain / discomfort, Bilateral edema Similar symptoms before: Diagnosis (COPD severe, with wheezing component) Recently seen: Clinic, Admitted (about a month ago for COPD exac.) Review of Systems Constitutional: denies: Fever, Chills Nose: reports: Congestion. denies: Rhinorrhea / runny nose Throat: denies: Sore throat Cardiac: denies: Chest pain / pressure, Palpitations Respiratory: reports: Dyspnea, Cough, Wheezing GI: denies: Nausea, Vomiting, Diarrhea Skin: denies: Rash, Lesions Neurologic: reports: Generalized weakness. denies: Focal weakness, Numbness Immunocompromised: denies: Immunocompromised PD PAST MEDICAL HISTORY - Past Medical History Cardiovascular: Hypertension Respiratory: COPD, Other Neuro: None Endocrine/Autoimmune: None GI: Cholelithiasis [employer]: Other : None HEENT: None Psych: Anxiety Musculoskeletal: Osteoarthritis Derm: None - Past Surgical History Past Surgical History: No General: Cholecystectomy HEENT: Tonsil/Adenoidectomy - Present Medications Home Medications: Ambulatory Orders Medication Instructions Recorded Confirmed Albuterol Sulfate [Proair Hfa 2 puffs INH Q4H PRN 08/31/16 09/14/18 Inhaler] Multivitamin [Theragran] 1 each PO DAILY #0 06/06/17 09/14/18 Fluticasone Propionate 2 spray PAULINE DAILY PRN 09/15/17 09/14/18 Loratadine 10 mg PO DAILY MDD 1 capsule 04/11/18 09/14/18 Valsartan [Diovan] 80 mg PO DAILY 04/21/18 09/14/18 Fluticasone/Salmeterol [Advair 1 puffs INH BID #1 blst.w.dev 04/23/18 09/14/18 500-50 Diskus] Ipratropium/Albuterol [Duoneb] 3 ml INH RTQID neb 04/24/18 09/14/18 LORazepam [Ativan] 0.5 mg PO Q6HR PRN 06/20/18 09/14/18 Morphine Sulfate [Morphine Sulf 5 mg PO TID 06/20/18 09/14/18 Oral (Roxanol)] Atorvastatin Calcium 20 mg PO QPM 07/18/18 09/14/18 Polyethylene Glycol 3350 [Miralax] 17 gm PO DAILY 07/18/18 09/14/18 amLODIPine [Norvasc] 5 mg PO DAILY 07/18/18 09/14/18 Cholecalciferol (Vitamin D3) 2,000 unit PO DAILY 08/15/18 09/14/18 [Vitamin D3] Olopatadine HCl [Pataday] 1 drops OP BID 08/15/18 09/14/18 Omeprazole [PriLOSEC] 20 mg PO DAILY MDD Take while 08/15/18 09/14/18 taking steroids Azithromycin [Zithromax] 250 mg PO DAILY #6 tablet 09/13/18 09/14/18 Dexamethasone [Decadron] 4 mg PO DAILY #7 tablet MDD for 6 09/13/18 09/14/18 days Albuterol Sulf [Ventolin Hfa 1 puffs INH Q6H 09/14/18 09/14/18 Inhaler] - Allergies Allergies/Adverse Reactions: Allergies Allergy/AdvReac Type Severity Reaction Status Date / Time No Known Drug Allergies Allergy Verified 09/13/18 15:52 - Living Situation Living Arrangement: reports: At home - Social History Does the pt smoke?: No Smoking Status: Former smoker Does the pt drink ETOH?: Yes Does the pt have substance abuse?: No - Family History Family history: reports: Non contributory - Immunizations Immunizations are current?: No Immunizations: TDAP >10years/unknown - POLST Patient has POLST: No POLST Status: Full Code PD ED PE NORMAL - Vitals Vital signs reviewed: Yes - General General: Alert and oriented X 3, Well developed/nourished - HEENT HEENT: Moist mucous membranes, Pharynx benign - Neck Neck: Supple, no meningeal sign, No adenopathy - Cardiac Cardiac: RRR, No murmur - Respiratory Respiratory: No: Clear bilaterally (no coarse sounds but with diffuse exp wheezing. ) - Abdomen Abdomen: Soft, Non tender - Derm Derm: Normal color, Warm and dry - Extremities Extremities: No tenderness to palpate, Normal ROM s pain, No edema, No calf tenderness / cord - Neuro Neuro: Alert and oriented X 3, No motor deficit, Normal speech Results - Vitals Vitals: Oxygen O2 Source Room air Oxygen Flow Rate 4 - Labs Labs: Laboratory Tests 09/13/18 09/13/18 16:05 16:05 Magnesium 2.0 B-Natriuretic Peptide 22 - Rads (name of study) chest xray Radiology: Prelim report reviewed (acute on chronic lung disease with bibasilar infiltrates (see recent chest CT report)) PD MEDICAL DECISION MAKING - ED course Complexity details: re-evaluated patient (she felt improved enough with negs here to try going home. ), considered differential, d/w patient Departure - Departure Disposition: 01 Home, Self Care Clinical Impression: Acute exacerbation of COPD with asthma Bronchitis, acute Qualifiers: Bronchitis organism: unspecified organism Qualified Code(s): J20.9 - Acute bronchitis, unspecified Condition: Stable Record reviewed to determine appropriate education?: Yes Instructions: ED Upper Resp Infec Abx Tx, ED COPD Flare Follow-Up: Kirti Phillips, [employer] [Primary Care Provider] - Prescriptions: Azithromycin [Zithromax] 250 mg PO DAILY #6 tablet Dexamethasone [Decadron] 4 mg PO DAILY #7 tablet MDD for 6 days Comments: Continue usual medications including your oxygen and nebulizers regularly. Add Decadron steroid for the next week and also Zithromax as prescribed for presumed infection. Recheck if not improving over the next couple of days. Return sooner if worse. Discharge Date/Time: 09/13/18 20:10
[2018-09-13] MEDS ORDERED: AZITHROMYCIN INJ 500 MG in SODIUM CHLORIDE 0.9% 250 ML IV STA (16:52)
[2018-09-13] MEDS ORDERED: DEXAMETHASONE 10 MG/ML VIAL IVP STA (16:52)
[2018-09-13] MEDS ORDERED: cefTRIAXone 1 GM VIAL IVP STA (16:52)
[2018-09-13] MEDS ORDERED: IPRATROPIUM/ALBUTEROL 3 ML NEB INH STA (16:52)
[2018-09-13] MEDS ORDERED: ALBUTEROL NEB 2.5 MG/3 ML INH STA ×2 (17:39→18:22)
--- NOTE | 2018-09-13 17:48 | XRAY Report ---
Reason: chest pain left sided Procedure Date: 09/13/2018 Accession Number: [id number] / [id number] Procedure: XR - Chest 2 View X-Ray CPT Code: 54530 FULL RESULT: EXAM: CHEST RADIOGRAPHY. EXAM DATE: 09/13/2018 05:21 PM. CLINICAL HISTORY: COPD. Left-sided chest pain. Shortness of breath. COMPARISON: Chest 1 view 07/18/2018 12:54 AM PCXR 08/21/2007 10:20 PM, chest with 04/21/2018 9:29 AM. TECHNIQUE: 2 views. FINDINGS: Lungs/Pleura: Overexpanded. 2 cm spiculated lesion apical segment right upper lobe. Bibasilar infiltrates, right greater than left. These are greater than noted on the prior exam. No vascular congestion. No pneumothorax. Mediastinum: Heart and mediastinal contours are unremarkable. Other: None. IMPRESSION: 1. Acute on chronic lung disease consisting of bibasilar infiltrates. 2. 2 cm spiculated lesion right lung apex. Carcinoma not excluded. Please see separately dictated prior CT chest report. [facility]
[2018-09-13 19:53] VITALS: BP 170/72
== END 2018-09-13 20:10 | disposition home or self-care (01) ==
LOC: ED 15:39
DX: J44.1 Chronic obstructive pulmonary disease with (acute) exacerbation (principal); J20.9 Acute bronchitis, unspecified; J44.0 Chronic obstructive pulmonary disease with (acute) lower respiratory infection; I10 Essential (primary) hypertension; Z87.891 Personal history of nicotine dependence; Z79.51 Long term (current) use of inhaled steroids
CPT/HCPCS: 71046; 83735; 83880; 94640; 99284

== ENCOUNTER 2018-09-14 14:40 | Outpatient (CLI) | payer MEDICARE, MEDICAID ==
--- NOTE | 2018-09-14 17:48 | CONSULTATION NOTE ---
Palliative Care Follow Up - Referral Referring Provider: DOMINGO Reyes Time of Visit: 09/14/2018 Referral setting: Home (Seen in home setting due to taxing and considerable effort required to leave the home due to significant breathlessness secondary to end stage lung disease, pulmonary fibrosis, and lung mass.) Referral Reason: Acute bronchitis - Information Sources Records reviewed: Previous records reviewed History/Review of Systems obtained from: Patient, Family Exam limitations: Clinical condition (SOA, labored speech) - History of Present Illness Update Brief HPI Update: -Reserved and introverted 68-year-old woman with severe end- stage COPD and pulmonary fibrosis, pulmonary hypertension, and 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 -PET scan and MRI were inconclusive for cancer (there was no brain mets). -She is not a candidate for a lung biopsy, so cancer cannot be actually diagnosed. -She was rehospitalized 07/18/10 - 07/24/18 with pneumonia. -After hospitalization I had restarted her on a course of 20mg prednisone daily, due to increased SOA. -She missed her oncology appointment on 09/12, but was at the [facility] on with DOMINGO Marc, who noted she looked bad and had phlegm and significant SOA. -Monico sent her to ED, they ran labs, started her on azithromycin 250mg daily x 6 for suspected upper respiratory infection, and Decadron 4mg daily x 7 and discharged her home. -Monico spoke to her about transitioning to Hospice, and reported that the patient appeared somewhat open to it, and she wanted a few days to think about it. -Caregiver reported that she does not think the patient had moved from her recliner since she had previously seen her -She is in her recliner today, with significant SOA, pursed lip breathing, difficulty talking due to the SOA. -Her daughter Ivette was present, this is the first time I have met any family member. -When I turned the conversation to Hospice, Ivette became tearful. I asked if she would like to talk about this, and she said it was better if the patient and I spoke alone about it. She left to go shopping. Social History - Living Situation Living Situation: Alone, With caregiver(s) Support System: She has LAURA caregiver support 5 days/week. The new caregiver is Reji Stone [phone]. Her hours are split between the morning and afternoon. Her wrapper stripper is due on Monday 09/17 to assess for the need for increased LAURA hours. Today her daughter was there. This is he first time I have met any of the family. She quickly left to go shopping. Medications/Allergies - Medications Home Medications: Ambulatory Orders Medication Instructions Recorded Confirmed Albuterol Sulfate [Proair Hfa 2 puffs INH Q4H PRN 08/31/16 09/14/18 Inhaler] Multivitamin [Theragran] 1 each PO DAILY #0 06/06/17 09/14/18 Fluticasone Propionate 2 spray PAULINE DAILY PRN 09/15/17 09/14/18 Loratadine 10 mg PO DAILY MDD 1 capsule 04/11/18 09/14/18 Valsartan [Diovan] 80 mg PO DAILY 04/21/18 09/14/18 Fluticasone/Salmeterol [Advair 1 puffs INH BID #1 blst.w.dev 04/23/18 09/14/18 500-50 Diskus] Ipratropium/Albuterol [Duoneb] 3 ml INH RTQID neb 04/24/18 09/14/18 LORazepam [Ativan] 0.5 mg PO Q6HR PRN 06/20/18 09/14/18 Morphine Sulfate [Morphine Sulf 5 mg PO TID 06/20/18 09/14/18 Oral (Roxanol)] Atorvastatin Calcium 20 mg PO QPM 07/18/18 09/14/18 Polyethylene Glycol 3350 [Miralax] 17 gm PO DAILY 07/18/18 09/14/18 amLODIPine [Norvasc] 5 mg PO DAILY 07/18/18 09/14/18 Cholecalciferol (Vitamin D3) 2,000 unit PO DAILY 08/15/18 09/14/18 [Vitamin D3] Olopatadine HCl [Pataday] 1 drops OP BID 08/15/18 09/14/18 Omeprazole [PriLOSEC] 20 mg PO DAILY MDD Take while 08/15/18 09/14/18 taking steroids Azithromycin [Zithromax] 250 mg PO DAILY #6 tablet 09/13/18 09/14/18 Dexamethasone [Decadron] 4 mg PO DAILY #7 tablet MDD for 6 10/25/18 10/26/18 days Albuterol Sulf [Ventolin Hfa 1 puffs INH Q6H 09/14/18 09/14/18 Inhaler] - Allergies Allergies/Adverse Reactions: Allergies Allergy/AdvReac Type Severity Reaction Status Date / Time No Known Drug Allergies Allergy Verified 09/13/18 15:52 Review of Systems - Constitutional Constitutional: reports: Weakness, Weight loss - Ears, Nose & Throat Ears, Nose & Throat: reports: Postnasal drainage - Cardiovascular Cardiovascular: reports: Edema, Exertional dyspnea, Decr. exercise tolerance - Respiratory Respiratory: reports: SOB at rest, SOB with exertion - Genitourinary Genitourinary: denies: Incontinence - Musculoskeletal Musculoskeletal: reports: Assistive devices (walker) - Neurological Neurological: reports: General weakness - Hematologic/Lymphatic Hematologic/Lymphatic: reports: Recurrent infections (respiratory) - Other Findings Other Findings: Limited ROS Physical Exam - Vital Signs Temperature: 96.7 F Pulse Rate: 131 O2 Saturation: 95 Blood Pressure: 156/70 - Physical Exam General Appearance: positive: Alert, Moderate distress (upset about of cat) Eyes Bilateral: positive: EOMI, No lid inflammation, Conjunctivae nml, No scleral icterus ENT: positive: No signs of dehydration Neck: positive: Trachea midline Cardiovascular: positive: Tachycardia Respiratory: positive: Chest non-tender, Diminished throughout Skin: positive: No symptoms Extremities: positive: Pedal edema Neurologic/Psychiatric: positive: Oriented x3, Flat affect Palliative Care - POLST Patient has POLST: No - Palliative Care Discussion: The patient's beloved cat, Suzan, had to be put down earlier this week due to diabetes. The patient shared photos with me: miller that were sent by the [facility]; a keepsake paw imprint. The patient was quietly mournful, and we were both tearful. Her heart rate was elevated to 131BPM due to talking about his . This was a very special cat. We did discuss Hospice, and today was the first time the patient has said she is considering Hospice, and that she doesn't want to go to the hospital again. What she really wants is to remain in her house and wants to know if Hospice can happen in her house. I said yes. We talked about keeping her safe and having the right amount of caregiving. She is being assessed on Monday for increased LAURA caregiver hours. Also she points out that in the hospital, and at [facility], she has to wait a long time after pushing the call button to get help. Using her [employer] call button she always gets helps quickly. Today is Monday afternoon. She has the meds from ED, she wants to stabilize, and she wants a few days to think about Hospice. We agreed I would call her next week. Impression and Recommendations - Palliative Care Impression: Patient with worsening SOA secondary to end-stage COPD, pulmonary fibrosis, and neoplasm of uncertain behavior of trachea, bronchus, and lung. She went to ED yesterday for presumed acute bronchitis, was started on antibiotics and steroids, and discharged back home. She is considering Hospice but wants a few days to settle down and think of it. Her cat just prior to the ED visit. Her daughter did not want to be present for any discussion of or Hospice. Palliative care will continue to provide support and will followup early next week. Recommendations/Counseling Done: Neoplasm of uncertain behavior of trachea, bronchus, and lung: She has missed two oncology appointments. Increased dyspnea: Worsening, was sent to ED yesterday during a visit to the [facility]. She was discharged home on azithromycin 250mg x 6 and Decadron 4mg x 6 days. She requested new script for Ventolin albuterol; she prefers this over the Proair HFA she has. She continues all her respiratory meds and therapies at full strength, including Trilogy, nebulizer, morphine, and inhalers. HTN: BP today is elevated at 156/70; Continues on amlodipine and continues valsartan. Advanced care planning: She is under stress and mourning the of her cat a few days ago. Patient has for the first time indicated some willingness to consider Hospice. She says she wants to think about Hospice. She said she does not want to go back to hospital, and this is also a first. Her daughter, Ivette, was initially present today. She became tearful with the subject of Hospice, and wanted to leave. Patient had no questions about hospice except to know if she can stay in her home. She definitely wants to remain there, does not want to go to a long-term care facility. Her decision to trans ition to Hospice may depend on if she can stay in her home. We did discuss if she needs increased level of care that a facility may better serve that, but she objects, saying that she has had to wait a long while after pushing a call button, whether at the hospital or at [facility]. Patient's wrapper stripper is scheduled to come on Monday to assess for increasing her LAURA caregiver hours. We agreed I will call her early next week (it's Monday afternoon). Time Spent: 40 minutes with more than 50% of the time spent on counseling, education, anticipatory guidance, and coordination of care.
== END 2018-09-14 14:41 | disposition home or self-care (01) ==
LOC: PC 14:40
PROVIDERS: ATTEND Nurse Practitioner
DX: Z51.5 Encounter for palliative care (principal); D38.1 Neoplasm of uncertain behavior of trachea, bronchus and lung; J84.10 Pulmonary fibrosis, unspecified; J44.9 Chronic obstructive pulmonary disease, unspecified; I27.20 Pulmonary hypertension, unspecified; Z87.01 Personal history of pneumonia (recurrent); I10 Essential (primary) hypertension; Z79.899 Other long term (current) drug therapy; Z79.891 Long term (current) use of opiate analgesic; Z63.79 Other stressful life events affecting family and household; Z79.51 Long term (current) use of inhaled steroids
CPT/HCPCS: 99349

== ENCOUNTER 2018-09-16 08:11 | Outpatient (CLI) | payer MEDICARE, MEDICAID | END 2018-09-16 08:12 | disposition critical access hospital (66) | LOC: EMS 08:11 | PROVIDERS: ATTEND Surgery | DX: R06.02 Shortness of breath (principal) | CPT/HCPCS: A0425; A0429 ==

== ENCOUNTER 2018-09-16 08:27 | Inpatient (IN) | payer MEDICARE, MEDICAID ==
[2018-09-16] MEDS ORDERED: SODIUM CHLORIDE 0.9% 1,000 ML IV ONE (09:00)
[2018-09-16 09:26] LABS: BASOPHILS % (AUTO) 0.1 %; HGB - HEMOGLOBIN 12.3 g/dL (12.0-16.0); LYMPHOCYTES # (AUTO) 0.7 10^3/uL (1.5-3.5); LYMPHOCYTES % (AUTO) 5.4 %; MEAN CORPUSCULAR HEMOGLOBIN 29.7 pg (27.0-31.0); MEAN CORPUSCULAR HGB CONC 33.5 g/dL (32.0-36.0); MEAN CORPUSCULAR VOLUME 88.7 fL (81.0-99.0); MEAN PLATELET VOLUME 6.2 fL (7.9-10.8); MONOCYTES # (AUTO) 0.5 10^3/uL (0.0-1.0); NEUTROPHILS # (AUTO) 12.3 10^3/uL (1.5-6.6); NEUTROPHILS % (AUTO) 90.5 %; PLT - PLATELET COUNT 506 10^3/uL (130-450); RED BLOOD COUNT 4.13 10^6/uL (4.20-5.40); RED CELL DISTRIBUTION WIDTH 14.9 % (12.0-15.0); WHITE BLOOD COUNT 13.6 x10^3/uL (4.8-10.8)
[2018-09-16 09:51] LABS: ALBUMIN 3.7 g/dL (3.2-5.5); BILIRUBIN,TOTAL 0.4 mg/dL (0.2-1.0); CREATININE 0.5 mg/dL (0.4-1.0); TOTAL PROTEIN 7.4 g/dL (6.7-8.2)
--- NOTE | 2018-09-16 09:56 | XRAY Report ---
Reason: diminished air movement. Procedure Date: 09/16/2018 Accession Number: [id number] / [id number] Procedure: XR - Chest 2 View X-Ray CPT Code: 44438 FULL RESULT: EXAM: CHEST RADIOGRAPHY, 2 VIEWS EXAM DATE: 09/16/2018 09:34 AM. CLINICAL HISTORY: Diminished air movement in a 68-year-old female. COMPARISON: Chest two views 09/13/2018 5:06 PM and previous. TECHNIQUE: Upright PA and lateral views. FINDINGS: Lungs/Pleura: Moderate to marked hyperinflation, as previously. Decreased infiltrate/edema both lung bases. No new areas of consolidation. No pneumothorax or pleural effusion bilaterally. Mediastinum: Heart size normal without pulmonary vascular congestion or adenopathy. Other: Trachea is midline. Osseous structures are unremarkable for age. IMPRESSION: Hyperinflation consistent with COPD. Decreased infiltrates/edema both lung bases. RADIA
--- NOTE | 2018-09-16 10:15 | ED Physician Documentation ---
PD HPI DYSPNEA - Stated complaint Stated Complaint: SOA - Chief complaint Chief Complaint: Resp - History obtained from History obtained from: Patient - History of Present Illness Timing - onset: Last night Timing - onset during: Rest Timing - duration: Days (2) Timing - details: Gradual onset, Still present Inciting event(s): URI, Other (exacerbation of COPD) Improved by: O2, Inhaler/neb, Steroids, Rest, Sitting up Worsened by: Exertion Associated symptoms: Cough, Wheezing Similar symptoms before: Diagnosis (COPD end stage) Recently seen: Emergency Dept, Other - Additional information Additional information: 68-year-old female with a history of COPD has been oxygen dependent for more than a year and she has had repeated admissions to the hospital with progression of her disease. She is now on 4-1/2 L of oxygen at home she has nebulizers at home she has recently been into the emergency department and placed on a course of antibiotic which is helped with her sputum production. She is also recently been evaluated for hospice care at home for her end-stage lung disease. She was in to see the employee benefits coordinator last week and has plans to set up hospice in her home this week. She has a caregiver that comes into her home twice per day and she is otherwise alone at night. Last night she had difficulty getting up to the side of the bed even to go to the bathroom. She was extremely short of breath. She does not have any history of CHF or CAD. Review of Systems Constitutional: reports: Fatigue. denies: Fever Eyes: denies: Decreased vision Ears: denies: Ear pain Nose: reports: Congestion. denies: Rhinorrhea / runny nose Throat: denies: Sore throat Cardiac: reports: Chest pain / pressure, Palpitations. denies: Pedal edema, Calf pain Respiratory: reports: Dyspnea, Cough, Wheezing GI: denies: Abdominal Pain, Nausea, Vomiting : denies: Dysuria, Frequency Skin: denies: Rash Musculoskeletal: denies: Neck pain, Back pain, Extremity pain Neurologic: reports: Generalized weakness. 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 HEENT: None Psych: Anxiety Musculoskeletal: Osteoarthritis Derm: None - Past Surgical History Past Surgical History: No General: Cholecystectomy HEENT: Tonsil/Adenoidectomy - Present Medications Home Medications: Ambulatory Orders Medication Instructions Recorded Confirmed Albuterol Sulfate [Proair Hfa 2 puffs INH Q4H PRN 08/31/16 09/14/18 Inhaler] Multivitamin [Theragran] 1 each PO DAILY #0 06/06/17 09/14/18 Fluticasone Propionate 2 spray PAULINE DAILY PRN 09/15/17 09/14/18 Loratadine 10 mg PO DAILY MDD 1 capsule 04/11/18 09/14/18 Valsartan [Diovan] 80 mg PO DAILY 04/21/18 09/14/18 Fluticasone/Salmeterol [Advair 1 puffs INH BID #1 blst.w.dev 04/23/18 09/14/18 500-50 Diskus] Ipratropium/Albuterol [Duoneb] 3 ml INH RTQID neb 04/24/18 09/14/18 LORazepam [Ativan] 0.5 mg PO Q6HR PRN 06/20/18 09/14/18 Morphine Sulfate [Morphine Sulf 5 mg PO TID 06/20/18 09/14/18 Oral (Roxanol)] Atorvastatin Calcium 20 mg PO QPM 07/18/18 09/14/18 Polyethylene Glycol 3350 [Miralax] 17 gm PO DAILY 07/18/18 09/14/18 amLODIPine [Norvasc] 5 mg PO DAILY 07/18/18 09/14/18 Cholecalciferol (Vitamin D3) 2,000 unit PO DAILY 08/15/18 09/14/18 [Vitamin D3] Olopatadine HCl [Pataday] 1 drops OP BID 08/15/18 09/14/18 Omeprazole [PriLOSEC] 20 mg PO DAILY MDD Take while 08/15/18 09/14/18 taking steroids Azithromycin [Zithromax] 250 mg PO DAILY #6 tablet 09/13/18 09/14/18 Dexamethasone [Decadron] 4 mg PO DAILY #7 tablet MDD for 6 09/13/18 09/14/18 days Albuterol Sulf [Ventolin Hfa 1 puffs INH Q6H 09/14/18 09/14/18 Inhaler] - Allergies Allergies/Adverse Reactions: Allergies Allergy/AdvReac Type Severity Reaction Status Date / Time No Known Drug Allergies Allergy Verified 09/16/18 08:41 - Social History Does the pt smoke?: No Smoking Status: Never smoker Does the pt drink ETOH?: Yes Does the pt have substance abuse?: No - Immunizations Immunizations are current?: No Immunizations: TDAP >10years/unknown - POLST Patient has POLST: No POLST Status: Full Code PD ED PE NORMAL - Vitals Vital signs reviewed: Yes - General General: Alert and oriented X 3, Well developed/nourished, Other (tachypneic ) - HEENT HEENT: Atraumatic, PERRL, EOMI, Ears normal, Other (dry mucous membranes ) - Neck Neck: Supple, no meningeal sign, No bony TTP - Cardiac Cardiac: No murmur, Other (tachy to 120) - Respiratory Respiratory: Other (tachypneic at rest with markedly diminished breath sounds. ) - Abdomen Abdomen: Soft, Non tender - Back Back: No CVA TTP, No spinal TTP - Derm Derm: Normal color, Warm and dry, No rash - Extremities Extremities: No deformity, No edema - Neuro Neuro: Alert and oriented X 3, community health education coordinator 2-12 intact, No motor deficit, No sensory deficit, Normal speech Eye Opening: Spontaneous Motor: Obeys Commands Verbal: Oriented GCS Score: 15 - Psych Psych: Normal mood, Normal affect Results - Vitals Vitals: Vital Signs - 24 hr 09/16/18 09/16/18 09/16/18 08:34 09:44 11:14 Temperature 37.2 C Heart Rate 120 H 117 H 106 H Respiratory 22 22 16 Rate Blood Pressure 139/92 H 152/129 H 147/70 H O2 Saturation 99 99 100 Oxygen O2 Source Nasal cannula Oxygen Flow Rate 4 - Labs Labs: Laboratory Tests 09/16/18 09/16/18 09/16/18 09:15 09:15 09:15 WBC 13.6 H RBC 4.13 L Hgb 12.3 Hct 36.6 L MCV 88.7 MCH 29.7 MCHC 33.5 RDW 14.9 Plt Count 506 H MPV 6.2 L Neut # (Auto) 12.3 H Lymph # (Auto) 0.7 L Sibley # (Auto) 0.5 Eos # (Auto) 0.0 Baso # (Auto) 0.0 Absolute Nucleated RBC 0.00 Nucleated RBC % 0.0 Sodium 135 Potassium 3.8 Chloride 90 L Carbon Dioxide 35 H Anion Gap 10.0 BUN 17 Creatinine 0.5 Estimated GFR (MDRD) 123 Glucose 124 H Calcium 9.0 Total Bilirubin 0.4 AST 21 ALT 11 Alkaline Phosphatase 72 Troponin I < 0.04 B-Natriuretic Peptide Total Protein 7.4 Albumin 3.7 Globulin 3.7 Albumin/Globulin Ratio 1.0 Lipase 32 09/16/18 09:15 WBC RBC Hgb Hct MCV MCH MCHC RDW Plt Count MPV Neut # (Auto) Lymph # (Auto) Sibley # (Auto) Eos # (Auto) Baso # (Auto) Absolute Nucleated RBC Nucleated RBC % Sodium Potassium Chloride Carbon Dioxide Anion Gap BUN Creatinine Estimated GFR (MDRD) Glucose Calcium Total Bilirubin AST ALT Alkaline Phosphatase Troponin I B-Natriuretic Peptide 59 Total Protein Albumin Globulin Albumin/Globulin Ratio Lipase - Rads (name of study) 2 veiw chest Radiology: Prelim report reviewed (Impression: Hyperinflation consistent with COPD. Decreased infiltrate/edema both lung bases.), EMP read indepedently, See rad report PD MEDICAL DECISION MAKING - ED course Complexity details: reviewed old records, reviewed results, re-evaluated patient, considered differential, d/w patient ED course: 68-year-old female with end-stage COPD has exacerbation of her disease and is now unable to stand or move in her home or here in the emergency department without extreme shortness of breath. She desaturates very easily. She has up to 100% on 4-1/2 L at rest. She has had multiple treatments today and despite this continues to be short of breath. She has had treatment for the exacerbation that has helped with her sputum color but she continues to be dyspneic. I discussed with the patient admission to the hospital for exacerbation of COPD with the thought that hospice is being set up at her home this week and will not be ready today. Departure - Departure Disposition: 66 [facility] DC/Xfpamela Clinical Impression: COPD exacerbation, Neoplasm of uncertain behavior of lung, Oxygen dependent
--- NOTE | 2018-09-16 13:01 | HISTORY & PHYSICAL EXAMINATION ---
Chief Complaint - Chief Complaint Chief Complaint: shortness of breath History of Present Illness - Admitted From Admitted From:: ED - History Obtained From Records Reviewed: yes History obtained from: chart review, patient Exam Limitations: hypoxia - History of Present Illness HPI Comment/Other: Trupti Pruett is a 68-year old female with a past medical history of end stage COPD, pulmonary fibrosis, pulmonary hypertension, lung cancer, pneumonia, anxiety, chronic sinusitis, and osteoarthritis. She pushed her life alert this morning from home because she could was not able to speak from being so short of breath. She has a pulse ox at home and it was reported low at 85%, on her usual 4L nasal cannula. The patient was seen in the ED in the past few days and started on Zithromax and a steroid taper. On exam, she reports that she continues to cough up green sputum. She is under the care of Palliative care and oncology. She states that for the past 2 days she has had increased productive cough, increased fatigue, fever, chills, and her home oxygen concentrator got permanently stuck on 5L which caused her anxiety. She denies chest pain, rashes, sore throat, hearing loss, increased dizziness, nausea, vomiting, or hemoptysis. Labs show a mildly elevated WBC count of 13.6, although she has been on steroids, a low hematocrit of 36.6, an elevated platelet count of 506, an elevated CO2 level of 35 (normal for her), an elevated glucose of 124, a normal troponin, a normal urine sample and other euceda unrema rkable labs. She has an un-supportive family social network, and there was mention of progressing toward Hospice care, but this is not in place at this time. I will order a Hospice referral/Palliative care referral. She will be admitted for treatment of COPD exacerbation, and symptom management with plans to be discharged with Hospice. History - Past Medical History Cardiovascular: reports: Hypertension Respiratory: reports: COPD, Pneumonia, Other (home triligy, oxygen dependence) Neuro: reports: Headaches Endocrine/Autoimmune: reports: None GI: reports: GERD, Cholelithiasis [employer]: reports: Other : reports: Frequency HEENT: reports: Chronic sinusitis Psych: reports: Depression, Anxiety Musculoskeletal: reports: Osteoarthritis, Fatigue Derm: reports: None MRSA Hx?: No - Past Surgical History General: reports: Cholecystectomy HEENT: reports: Tonsil/Adenoidectomy - Family & Social History Family History: Mother: , COPD/Emphysema, Father: , COPD/Emphysema Family History Comment/Other: Both of her mother and father in the late 60s early 70s. Mom smoked up until her and she of COPD complications. Dad also of COPD. She has 4 brothers and one sister. All of them live in [place] except except one who lives in the [facility]. She says that no one has diabetes, hypertension, heart disease, or emphysema. Of 3 children her youngest daughter with killed or under suspicious circumstances. Her other 2 children are healthy. Living arrangement: At home Living Situation: Alone Social History Notes: Patient is a woman who lives alone in [place]. She was born in [place] and is retired. She has two children. The patient has lived on [facility] since 1983. Prior to that she lived in the [facility]. The patient has a daughter and son both of whom live on [facility]. The patient quit smoking Around 2007 but smoked 1 pack a day for over 50 years Starting at the age of 17. The patient does drink 1 beer a night. In the past she has done marijuana. When she was to her first he was a cocaine addict and she tried cocaine a few times but she never used it on a regular basis. She has not used it since her 20s.She has a Jonathan worker that comes by every day except Monday and Monday. But the jonathan worker is only a few hours a day. Because of excessive breathlessness, end-stage lung disease, she has become homebound over the last year - Substance History Use: Uses substance without health or social issues: NONE (Quit smoking but previously smoked 1PPD for over 50 years), Alcohol (1 beer a night) Abuse: Recurrent use of substance despite neg consequences: NONE Dependence: Experiences withdrawal or developed tolerances: NONE - POLST Patient has POLST: No POLST Status: Full Code Meds/Allgy - Home Medications Home Medications: Ambulatory Orders Medication Instructions Recorded Confirmed Albuterol Sulfate [Proair Hfa 2 puffs INH Q4H PRN 08/31/16 09/16/18 Inhaler] Fluticasone/Salmeterol [Advair 1 puffs INH BID #1 blst.w.dev 04/23/18 09/16/18 500-50 Diskus] Morphine Sulfate [Morphine Sulf 5 mg PO TID 06/20/18 09/16/18 Oral (Roxanol)] Atorvastatin Calcium 20 mg PO QPM 07/18/18 09/16/18 amLODIPine [Norvasc] 5 mg PO DAILY 07/18/18 09/16/18 Olopatadine HCl [Pataday] 1 drops EACHEYE BID PRN 08/15/18 09/16/18 Azithromycin [Zithromax] 250 mg PO QDX5D 09/16/18 09/16/18 Dexamethasone [Decadron] 4 mg PO QDX7D 09/16/18 09/16/18 LORazepam [Lorazepam] 0.5 mg PO TID PRN 09/16/18 09/16/18 - Allergies Allergies/Adverse Reactions: Allergies Allergy/AdvReac Type Severity Reaction Status Date / Time No Known Drug Allergies Allergy Verified 09/16/18 08:41 Review of Systems - Constitutional Constitutional: reports: Fatigue, Weakness, Poor appetite - Ears, Nose & Throat Ears, Nose & Throat: reports: Postnasal drainage - Cardiovascular Cariovascular: reports: Edema, Exertional dyspnea, Decr. exercise tolerance, Orthopnea - Respiratory Respiratory: reports: Cough, Sputum production (green), Orthopnea, SOB at rest, SOB with exertion - Gastrointestinal Gastrointestinal: reports: Abdominal distention, Reflux/heartburn - Genitourinary Genitourinary: reports: Nocturia - Neurological Neurological: reports: Headache, Pre-existing deficit - Psychiatric Psychiatric: reports: Depression, Anxiety - All Other Systems All Other Systems: reports: Reviewed and negative Prior Level of Functionality: Lives independently, but has palliative care services. Is ambulatory. Exam - Vital Signs Reviewed Vital Signs: Yes Vital Signs: Vital Signs x48h Temp Pulse Resp BP Pulse Ox 09/16/18 11:14 106 H 16 147/70 H 100 09/16/18 09:44 117 H 22 152/129 H 99 09/16/18 08:34 37.2 C 120 H 22 139/92 H 99 - Physical Exam General Appearance: positive: Alert, Moderate distress, Anxious Eyes Bilateral: positive: PERRL, No lid inflammation ENT: positive: Pharyngeal erythema, Dry mucous membranes Neck: positive: Thyroid nml, No JVD, Stiff neck Respiratory: positive: Chest non-tender, Wheezes, Rhonchi Cardiovascular: positive: No gallop, Irregularly irregular, Tachycardia, Systolic murmur, Decreased pulse(s) Peripheral Pulses: positive: 1+ Abdomen: positive: Non-tender, Nml bowel sounds, Other (rounded, soft) Back: positive: Nml inspection Skin: positive: No rash, Warm, Dry, Other (bronze skin tone) Extremities: positive: Non-tender, Pedal edema Neurologic/Psychiatric: positive: Oriented x3, Weakness, Sensory loss, Slurred/abnml speech, Depressed mood/affect Reflexes: Bicep (R): 2+, Bicep (L): 2+ Conclusion/Plan - Problem List (1) COPD exacerbation Conclusion/Plan: The patient is hypoxic on admission with a reported oxygen saturation of ~85% on her usual 4L, and the patient could barely breath out enough air to speak words. She states that she pushed her medical alert button at home, and EMS brought her to the ED. As per chart review, the patient was seen both by oncology and by palliative care who both note that the patient was having a more difficult time breathing in general and she had been coughing up green sputum. She was just hospitalized in early July for similar events. Imaging showed no evidence of acute infiltrates, or edema. Plan: Start IV steroids, IV antibiotics, influenza PCRs, and nebs. (2) Oxygen dependent Conclusion/Plan: The patient states that she has an oxygen concentrator at home and titrates her oxygen between 3-6L per nasal cannula. She states that last week one of her c aregivers was fiddling with her oxygen concentrator and got it stuck on 5L which was too much for her. She had to call her oxygen company to learn how to fix this, but she felt as if she was getting too much flow which added to her anxiety. This morning, she checked her oxygen at home and reports that it was down to 85% on her usual 4L per nasal cannula. She could not speak any words due to profound shortness of breath. Plan: Continue to monitor and provide oxygen continuously. Titrate for comfort. (3) Anxiety disorder Conclusion/Plan: The patient has a long history of anxiety and becomes visibly anxious when asked about her code status. She at times does not answer questions when asked, especially around the topic of Hospice care. She is not thought to have very much social support and on previous admissions, her grown children verbally fight in the patient's room and have to be escorted out by our security. She is not prescribed any antidepressants. Plan: Give lorazepam for anxiety and monitor for depression. Qualifiers: Anxiety disorder type: other anxiety disorder Qualified Code(s): F41.8 - Other specified anxiety disorders (4) Pulmonary hypertension Conclusion/Plan: The patient's last known echo showed an increase in her right heart pressures with an RVSP at rest at 44 mm Hg. She was previously prescribed Spironolactone, but thinks that she ran out of pill, so has not been taking this. She has evidence of this as she has end stage lung disease, oxygen dependent, increased abdominal girth, and chronic, increased BLE edema. With her acute suspected pneumonia, I will hold this medication. Plan: Continue to monitor leg edema, await echo, and continue oxygen/respiratory care. (5) Tachycardia Conclusion/Plan: The patient has evidence of atrial fibrillation as per telemetry. Her last echo showed LVH, so having elevated heart rates is detrimental for her and may likely lead to worsening shortness of breath, activity intolerance and dizziness. I will start her on metoprolol, keep her on tele, obtain an EKG, and order an echocardiogram. Plan: Continue to monitor, continue tele, await echo results. (6) Chronic sinusitis Conclusion/Plan: The patient likely has this as a consequence to her end stage COPD. She denies previous sinus surgeries, or recent nose bleeding. On previous hospital stays, she has been prescribed Afrin treatment x3 days, which takes care of this. She stated that she could not breath through her nose and uses chronic home oxygen. Flonase will also be added to be used daily. Plan: continue to monitor, with chronic oxygen use. 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 She has been seen by Dr. Bowles/Vivian Zarco, [facility] Oncology AND Palliative care. PET scan and MRI done 06/28, scan results were inconclusive, MRI showed no mets to brain. Neoplasm is in the right lung, multiple areas. She is not a candidate for lung biopsy because of her end stage lung disease. She has not had a follow up chest CT, just plain chest x-rays that also not the 2 cm lesion in the right upper lobe on 09/13/18. Plan: continue to treat acute COPD exacerbation and provide support. (8) Dyspnea and respiratory abnormalities Conclusion/Plan: The patient is prescribed oral morphine, lorazepam, Advair, and albuterol at home. Plan: Continue to treat air hunger with medications, nebulizers and nursing support. - Lab Results Lab results reviewed: Yes Fish Bones: 09/17/18 05:18 09/17/18 05:18 - Diagnostic Imaging Results Diagnostic Imaging Results: positive: Final report reviewed Core Measures - Anticipated LOS I expect patient to be DC'd or transferred within 96 hours.: Yes - DVT/VTE - Prophylaxis VTE/DVT Device ordered at admit?: Yes VTE/DVT Prophylaxis med ordered at admit?: Yes - Stroke - Rehab Assessment Rehab services assessment to be ordered?: Yes - AMI - Statin at Admit Aspirin Prescribed on Admit: Yes
[2018-09-16] MEDS: LEVALBUTEROL 1.25 MG/3 ML NEB INH SCH ×3 (14:08→19:55)
[2018-09-16] MEDS: IPRATROPIUM 0.2 MG/ML NEB INH SCH ×3 (14:08→19:55)
[2018-09-16 14:36] LABS: BILIRUBIN,URINE NEGATIVE (NEGATIVE); GLUCOSE, URINE (UA) NEGATIVE (NEGATIVE); KETONES,URINE (UA) NEGATIVE (NEGATIVE); LEUKOCYTE ESTERASE, URINE NEGATIVE (NEGATIVE); NITRITE,URINE NEGATIVE (NEGATIVE); OCCULT BLOOD,URINE TRACE-LYSE (NEGATIVE); PH,URINE 6.5 PH (5.0-7.5); PROTEIN,URINE NEGATIVE (NEGATIVE); UROBILINOGEN,URINE 0.2 (NORMAL) E.U./dL (NORMAL)
[2018-09-16 14:38] LABS: CLARITY,URINE CLEAR (CLEAR)
[2018-09-16] MEDS ORDERED: LORazepam 0.5 MG TABLET PO PRN (15:44)
[2018-09-16] MEDS: MORPHINE SOL 10 MG/0.5 ML SYRINGE PO SCH ×2 (16:05→21:55)
[2018-09-16] MEDS: methylPREDNISolone SUCCINATE 40 MG/ML VIAL IVP SCH ×2 (16:19→21:55)
[2018-09-16] MEDS: SODIUM CHLORIDE FLUSH 0.9% 10 ML SYRINGE IVP SCH (16:20)
[2018-09-16] MEDS ORDERED: cefTRIAXone 2 GM VIAL IVP STA (17:28)
[2018-09-16] MEDS: cefTRIAXone 2 GM in SODIUM CHLORIDE 0.9% MINIBAG 100 ML IV SCH (18:18)
[2018-09-16] MEDS: SODIUM CHLORIDE FLUSH 0.9% 10 ML SYRINGE IVP PRN (18:18)
[2018-09-16] MEDS: SODIUM CHLORIDE 0.9% 1,000 ML IV SCH (18:48)
--- NOTE | 2018-09-16 20:34 | PROVIDER PROGRESS NOTE ---
Metal Off Bearer Note - Metal Off Bearer Note Metal Off Bearer Note: Pt was getting a Xopenex and Atrovent treatment and became tachycardic. A telemetry strip was run that showed VTach. BP stable at 117/73 and O2 sat with that was 99% on 4.5 L supplemental oxygen. Pt had no c/o dizziness or chest pain. Chart was reviewed. EKG was obtained and showed Afib, rate 140, Afib is new compared to 07/07, but no ischemic changes present. Imp/Plan: VTach vs rate-related Bundle Branch Block. Possibly related to hypoxia or B- adrenergic stimulation. Will get a STAT Mg, K and troponin. Continue telemetry. Continue O2. Code status is unclear: H&P Draft states DNR but orders state Attempt Res uscitation. Will get clarification. Afib with RVR. Will give Cardizem iv push(es) for rapid rate. The last EKG done in Jun 2018 did not show Afib, therefore this may be new onset Afib and may be adding to her SOB. Her CHADS score = 0, therefore will start an aspirin daily, give now.
[2018-09-16] MEDS ORDERED: diltiaZEM INJ 5 MG/ML VIAL IVP ONE (20:44)
[2018-09-16] MEDS: diltiaZEM INJ 5 MG/ML VIAL IVP ONE ×2 (21:01→22:34)
[2018-09-16] MEDS: ASPIRIN EC 81 MG TABLET PO SCH (21:55)
[2018-09-16] MEDS: LEVALBUTEROL 1.25 MG/3 ML NEB INH PRN (23:04)
[2018-09-17] MEDS ORDERED: SODIUM CHLORIDE 0.9% 500 ML IV ONE (00:18)
[2018-09-17] MEDS: SODIUM CHLORIDE FLUSH 0.9% 10 ML SYRINGE IVP SCH ×4 (02:35→16:38)
[2018-09-17] MEDS: LEVALBUTEROL 1.25 MG/3 ML NEB INH PRN ×3 (03:04→22:45)
[2018-09-17] MEDS: MORPHINE SOL 10 MG/0.5 ML SYRINGE PO PRN ×3 (03:29→23:50)
[2018-09-17 05:32] LABS: BASOPHILS % (AUTO) 0.4 %; HGB - HEMOGLOBIN 11.3 g/dL (12.0-16.0); LYMPHOCYTES # (AUTO) 0.5 10^3/uL (1.5-3.5); LYMPHOCYTES % (AUTO) 6.7 %; MEAN CORPUSCULAR HEMOGLOBIN 31.2 pg (27.0-31.0); MEAN CORPUSCULAR HGB CONC 34.6 g/dL (32.0-36.0); MEAN PLATELET VOLUME 5.8 fL (7.9-10.8); MONOCYTES # (AUTO) 0.2 10^3/uL (0.0-1.0); MONOCYTES % (AUTO) 2.2 %; NEUTROPHILS # (AUTO) 7.3 10^3/uL (1.5-6.6); NEUTROPHILS % (AUTO) 90.7 %; PLT - PLATELET COUNT 378 10^3/uL (130-450); RED BLOOD COUNT 3.62 10^6/uL (4.20-5.40); RED CELL DISTRIBUTION WIDTH 14.8 % (12.0-15.0); WHITE BLOOD COUNT 8.1 x10^3/uL (4.8-10.8)
[2018-09-17 05:47] LABS: ALBUMIN 2.9 g/dL (3.2-5.5); BILIRUBIN,TOTAL 0.4 mg/dL (0.2-1.0); CALCIUM 8.1 mg/dL (8.5-10.3); CREATININE 0.6 mg/dL (0.4-1.0); MAGNESIUM 2.1 mg/dL (1.7-2.8); PHOSPHORUS 3.8 mg/dL (2.5-4.6); TOTAL PROTEIN 5.7 g/dL (6.7-8.2)
[2018-09-17] MEDS: methylPREDNISolone SUCCINATE 40 MG/ML VIAL IVP SCH ×3 (06:31→21:31)
[2018-09-17] MEDS: SODIUM CHLORIDE 0.9% 1,000 ML IV SCH (06:31)
[2018-09-17] MEDS: MORPHINE SOL 10 MG/0.5 ML SYRINGE PO SCH ×3 (06:43→21:31)
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
[2018-09-17] MEDS: LEVALBUTEROL 1.25 MG/3 ML NEB INH SCH ×4 (07:45→18:29)
[2018-09-17] MEDS: POLYETHYLENE GLYCOL 3350 17 GM PACKET PO SCH (09:04)
[2018-09-17] MEDS: ASPIRIN EC 81 MG TABLET PO SCH (09:04)
[2018-09-17] MEDS: cefTRIAXone 2 GM in SODIUM CHLORIDE 0.9% MINIBAG 100 ML IV SCH (09:04)
[2018-09-17] MEDS ORDERED: LORazepam 2 MG/ML VIAL IVP PRN (10:45)
[2018-09-17] MEDS: diltiaZEM CD 120 MG CAPSULE PO SCH (10:55)
[2018-09-17] MEDS ORDERED: diltiaZEM INJ 5 MG/ML VIAL IVP ONE (11:09)
[2018-09-17] MEDS: FUROSEMIDE 40 MG/4 ML VIAL IVP SCH (12:06)
[2018-09-17] MEDS: guaiFENesin 100 MG/5 ML UDC PO SCH ×2 (17:49→23:50)
[2018-09-17] MEDS: SENNA 8.6 MG TABLET PO SCH (20:02)
[2018-09-17] MEDS: DOCUSATE SODIUM 250 MG CAPSULE PO SCH (20:02)
[2018-09-17] MEDS: SODIUM CHLORIDE FLUSH 0.9% 10 ML SYRINGE IVP PRN (21:31)
[2018-09-18] MEDS: LEVALBUTEROL 1.25 MG/3 ML NEB INH PRN ×2 (02:40→18:09)
[2018-09-18 06:01] LABS: BASOPHILS # (AUTO) 0.1 10^3/uL (0.0-0.1); BASOPHILS % (AUTO) 0.4 %; HGB - HEMOGLOBIN 11.2 g/dL (12.0-16.0); LYMPHOCYTES # (AUTO) 0.7 10^3/uL (1.5-3.5); LYMPHOCYTES % (AUTO) 6.2 %; MEAN CORPUSCULAR HEMOGLOBIN 30.7 pg (27.0-31.0); MEAN CORPUSCULAR HGB CONC 34.3 g/dL (32.0-36.0); MEAN CORPUSCULAR VOLUME 89.6 fL (81.0-99.0); MEAN PLATELET VOLUME 6.3 fL (7.9-10.8); MONOCYTES # (AUTO) 0.3 10^3/uL (0.0-1.0); MONOCYTES % (AUTO) 2.2 %; NEUTROPHILS # (AUTO) 10.3 10^3/uL (1.5-6.6); NEUTROPHILS % (AUTO) 91.2 %; PLT - PLATELET COUNT 381 10^3/uL (130-450); RED BLOOD COUNT 3.64 10^6/uL (4.20-5.40); RED CELL DISTRIBUTION WIDTH 14.4 % (12.0-15.0); WHITE BLOOD COUNT 11.3 x10^3/uL (4.8-10.8)
[2018-09-18] MEDS: MORPHINE SOL 10 MG/0.5 ML SYRINGE PO SCH ×3 (06:26→21:15)
[2018-09-18] MEDS: guaiFENesin 100 MG/5 ML UDC PO SCH ×3 (06:26→18:26)
[2018-09-18] MEDS: LEVALBUTEROL 1.25 MG/3 ML NEB INH SCH ×3 (06:29→14:00)
[2018-09-18 06:30] LABS: ALBUMIN 3.1 g/dL (3.2-5.5); BILIRUBIN,TOTAL 0.4 mg/dL (0.2-1.0); CALCIUM 8.5 mg/dL (8.5-10.3); CREATININE 0.6 mg/dL (0.4-1.0); TOTAL PROTEIN 6.2 g/dL (6.7-8.2)
[2018-09-18] MEDS: SODIUM CHLORIDE FLUSH 0.9% 10 ML SYRINGE IVP SCH ×3 (06:39→18:26)
[2018-09-18] MEDS: SODIUM CHLORIDE FLUSH 0.9% 10 ML SYRINGE IVP PRN ×2 (06:40→19:08)
[2018-09-18] MEDS: methylPREDNISolone SUCCINATE 40 MG/ML VIAL IVP SCH ×2 (06:40→12:59)
[2018-09-18] MEDS: SENNA 8.6 MG TABLET PO SCH (08:50)
[2018-09-18] MEDS: FUROSEMIDE 40 MG/4 ML VIAL IVP SCH (08:50)
[2018-09-18] MEDS: POLYETHYLENE GLYCOL 3350 17 GM PACKET PO SCH (08:50)
[2018-09-18] MEDS: MORPHINE SOL 10 MG/0.5 ML SYRINGE PO PRN ×2 (08:50→19:08)
[2018-09-18] MEDS: diltiaZEM CD 120 MG CAPSULE PO SCH (08:50)
[2018-09-18] MEDS: ASPIRIN EC 81 MG TABLET PO SCH (08:50)
[2018-09-18] MEDS: DOCUSATE SODIUM 250 MG CAPSULE PO SCH (08:50)
[2018-09-18] MEDS: cefTRIAXone 2 GM in SODIUM CHLORIDE 0.9% MINIBAG 100 ML IV SCH (08:51)
[2018-09-18] MEDS: IPRATROPIUM 0.2 MG/ML NEB INH SCH ×4 (09:45→22:45)
[2018-09-18] MEDS ORDERED: IPRATROPIUM 0.2 MG/ML NEB INH SCH (11:00)
--- NOTE | 2018-09-18 15:10 | PROVIDER PROGRESS NOTE ---
Subjective - Prog Note Date Prog Note Date: 09/18/18 - Subjective Pt reports feeling: Improved Subjective: pt report she feel better today, breath is better. Denies fever, chill, chest pain. Discuss with pt for goal of care. pt agree to change her code status from full code to Do not resuscitation but with incubation Current Medications - Current Medications Current Medications: Active Medications Aspirin (Ecotrin) 81 mg PO DAILY [facility] Last Admin: 09/18/18 08:50 Dose: 81 mg Diltiazem HCl (Cardizem Cd) 120 mg PO DAILY [facility] Last Admin: 09/18/18 08:50 Dose: 120 mg Docusate Sodium (Colace 250mg Capsule) 250 - 500 mg PO DAILY [facility] Last Admin: 09/18/18 08:50 Dose: 250 mg Furosemide (Lasix Inj 40 Mg Vial) 40 mg IVP DAILY [facility] Last Admin: 09/18/18 08:50 Dose: 40 mg Guaifenesin (Robitussin Liquid) 100 mg PO Q6HR [facility] Last Admin: 09/18/18 12:59 Dose: 100 mg Ceftriaxone Sodium 2 gm/ (Sodium Chloride) 100 mls @ 200 mls/hr IV DAILY [facility] Last Infusion: 09/18/18 09:21 Dose: Infused Ipratropium [place] (Atrovent) 0.5 mg INH RTQID [facility] Last Admin: 09/18/18 14:00 Dose: 0.5 mg Levalbuterol HCl (Xopenex) 1.25 mg INH RTQ4H PRN PRN Reason: Shortness of Air/Wheezing Last Admin: 09/18/18 02:40 Dose: 1.25 mg Levalbuterol HCl (Xopenex) 1.25 mg INH RTQID [facility] Last Admin: 09/18/18 14:00 Dose: 1.25 mg Lorazepam (Ativan Inj (Vial)) 1 mg IVP Q2H PRN PRN Reason: Anxiety Methylprednisolone (Solu-Medrol (40mg Vial)) 40 mg IVP TID [facility] Last Admin: 09/18/18 12:59 Dose: 40 mg Morphine Sulfate (Roxanol) 5 mg PO TID [facility] [place] Last Admin: 09/18/18 12:59 Dose: 5 mg Morphine Sulfate (Roxanol) 5 mg PO Q4HR PRN PRN Reason: Dyspnea Last Admin: 10/30/18 08:50 Dose: 5 mg Polyethylene Glycol (Miralax) 17 gm PO DAILY [facility] [place] Last Admin: 09/18/18 08:50 Dose: 17 gm Senna (Senokot) 8.6 - 17.2 mg PO DAILY [facility] [place] Last Admin: 09/18/18 08:50 Dose: 8.6 mg Sodium Chloride (Normal Saline Flush 0.9%) 10 ml IVP PRN PRN PRN Reason: NEEDED PER PROVIDER ORDERS Last Admin: 09/18/18 06:40 Dose: 10 ml Sodium Chloride (Normal Saline Flush 0.9%) 10 ml IVP 0100,0900,1700 [facility] [place] Last Admin: 09/18/18 08:51 Dose: 10 ml Albuterol Sulfate [Proair Hfa Inhaler] 2 puffs INH Q4H PRN 08/31/16 Morphine Sulfate [Morphine Sulf Oral (Roxanol)] 5 mg PO TID 06/20/18 Atorvastatin Calcium 20 mg PO QPM 07/18/18 amLODIPine [Norvasc] 5 mg PO DAILY 07/18/18 Olopatadine HCl [Pataday] 1 drops EACHEYE BID PRN 08/15/18 Azithromycin [Zithromax] 250 mg PO QDX5D 09/16/18 Dexamethasone [Decadron] 4 mg PO QDX7D 09/16/18 LORazepam [Lorazepam] 0.5 mg PO TID PRN 09/16/18 Objective - Vital Signs/Intake & Output Reviewed Vital Signs: Yes Vital Signs: Vital Signs x48h Temp Pulse Pulse Resp BP Pulse Ox 09/18/18 14:00 89 16 09/18/18 11:59 36.6 C 94 18 151/63 H 96 09/18/18 09:45 113 H 20 09/18/18 08:11 36.5 C 92 16 125/79 95 Intake & Output: Intake & Output 09/15/18 09/16/18 09/17/18 09/18/18 23:59 23:59 23:59 23:59 Intake Total 1950 2505.884 960 Output Total 800 2250 1950 Balance 1150 255.884 -990 - Objective General Appearance: positive: No acute distress, Alert. negative: Lethargic Eyes Bilateral: positive: Normal inspection, PERRL, No lid inflammation, Conjunctivae nml ENT: positive: ENT inspection nml, Pharynx nml, No signs of dehydration. negative: Purulent nasal drainage, Pharyngeal erythema, Oral lesions Neck: positive: Nml inspection, Thyroid nml, No JVD, Trachea midline. negative: Thyromegaly, Lymphadenopathy (R), Lymphadenopathy (L), Stiff neck, Swellin g/bruising, Tracheal deviation Respiratory: positive: Chest non-tender. negative: Wheezes, Rales, Rhonchi Cardiovascular: positive: Regular rate & rhythm, No murmur, No gallop. negative: Irregularly irregular, Extrasystoles, Tachycardia, Bradycardia, JVD present, Systolic murmur, Diastolic murmur Peripheral Pulses: 2+ Radial (R), 2+ Radial (L), 2+ Dorsalis pedis (R), 2+ Dorsalis pedis (L) Abdomen: positive: Non-tender, No organomegaly, Nml bowel sounds, No distention. negative: Tenderness, Guarding, Rebound Back: positive: Nml inspection. negative: CVA tenderness (R), CVA tenderness (L) Skin: positive: Color nml, No rash, Warm, Dry. negative: Cyanosis, Diaphoresis, Pallor Extremities: positive: Non-tender, Full ROM, Nml appearance. negative: Calf tenderness, Joint swelling, Florecita's sign/cords Neurologic/Psychiatric: positive: Oriented x3, Motor nml, Sensation nml, Mood/affect nml. negative: Weakness, Sensory loss, Facial droop, Slurred/abnml speech, Depressed mood/affect - Lab Results Fish Bones: 09/18/18 05:27 09/18/18 06:00 Other Labs: Lab Results x24hrs 09/18/18 09/18/18 09/18/18 Range/Units 06:00 05:27 05:27 WBC 11.3 H (4.8-10.8) x10^3/uL RBC 3.64 L (4.20-5.40) 10^6/uL Hgb 11.2 L (12.0-16.0) g/dL Hct 32.6 L (37.0-47.0) % MCV 89.6 (81.0-99.0) fL MCH 30.7 (27.0-31.0) pg MCHC 34.3 (32.0-36.0) g/dL RDW 14.4 (12.0-15.0) % Plt Count 381 (130-450) 10^3/uL MPV 6.3 L (7.9-10.8) fL Neut # (Auto) 10.3 H (1.5-6.6) 10^3/uL Lymph # (Auto) 0.7 L (1.5-3.5) 10^3/uL [place] # (Auto) 0.3 (0.0-1.0) 10^3/uL Eos # (Auto) 0.0 (0.0-0.7) 10^3/uL Baso # (Auto) 0.1 (0.0-0.1) 10^3/uL Absolute Nucleated RBC 0.01 x10^3/uL Nucleated RBC % 0.1 /100WBC Sodium 137 (135-145) mmol/L Potassium 4.4 (3.5-5.0) mmol/L Chloride 91 L (101-111) mmol/L Carbon Dioxide 39 H* (21-32) mmol/L Anion Gap 7.0 (6-13) BUN 20 (6-20) mg/dL Creatinine 0.6 (0.4-1.0) mg/dL Estimated GFR (MDRD) 99 (>89) Glucose 161 H (70-100) mg/dL Calcium 8.5 (8.5-10.3) mg/dL Total Bilirubin 0.4 (0.2-1.0) mg/dL AST 20 (10-42) IU/L ALT 15 (10-60) IU/L Alkaline Phosphatase 57 (42-121) IU/L B-Natriuretic Peptide 255 H (5-100) pg/mL Total Protein 6.2 L (6.7-8.2) g/dL Albumin 3.1 L (3.2-5.5) g/dL Globulin 3.1 (2.1-4.2) g/dL Albumin/Globulin Ratio 1.0 (1.0-2.2) ABX Reporting Has patient been on IV antibiotics over the past 48 hours?: Yes Assessment/Plan - Problem List (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 pt desire to talk with palliative provider for possible hospice care, will support follow up palliative care, possible hospice if pt desire to do. pt is alert and oriented to choose his advance care. (2) COPD exacerbation stable, as her baseline. 96%sats on 4 liter O2, no cough, fever, chill. continue Ipra/Xopenex PRN continue O2 supplement gradually wane off Solu-metrol (3) Oxygen dependent stable, continue O2 supplement (4) Anxiety disorder stable, continue Ativan PRN (5) Tachycardia HR improved to 89 continue tele, vital monitor continue PO Cardizem control
[2018-09-19] MEDS: SODIUM CHLORIDE FLUSH 0.9% 10 ML SYRINGE IVP SCH ×3 (01:03→16:18)
[2018-09-19] MEDS: guaiFENesin 100 MG/5 ML UDC PO SCH ×3 (01:04→12:37)
[2018-09-19] MEDS: MORPHINE SOL 10 MG/0.5 ML SYRINGE PO SCH ×2 (06:00→16:17)
[2018-09-19] MEDS: methylPREDNISolone SUCCINATE 40 MG/ML VIAL IVP SCH ×2 (06:01→14:52)
[2018-09-19] MEDS: SODIUM CHLORIDE FLUSH 0.9% 10 ML SYRINGE IVP PRN ×2 (06:01→14:52)
[2018-09-19] MEDS: IPRATROPIUM 0.2 MG/ML NEB INH SCH ×3 (07:25→15:32)
[2018-09-19] MEDS: LEVALBUTEROL 1.25 MG/3 ML NEB INH SCH ×3 (07:25→15:32)
[2018-09-19 07:52] LABS: BASOPHILS % (AUTO) 0.1 %; HGB - HEMOGLOBIN 12.3 g/dL (12.0-16.0); LYMPHOCYTES # (AUTO) 0.9 10^3/uL (1.5-3.5); LYMPHOCYTES % (AUTO) 6.6 %; MEAN CORPUSCULAR HEMOGLOBIN 29.7 pg (27.0-31.0); MEAN CORPUSCULAR HGB CONC 33.2 g/dL (32.0-36.0); MEAN CORPUSCULAR VOLUME 89.6 fL (81.0-99.0); MONOCYTES # (AUTO) 0.6 10^3/uL (0.0-1.0); MONOCYTES % (AUTO) 4.6 %; NEUTROPHILS # (AUTO) 11.8 10^3/uL (1.5-6.6); NEUTROPHILS % (AUTO) 88.7 %; PLT - PLATELET COUNT 485 10^3/uL (130-450); RED BLOOD COUNT 4.13 10^6/uL (4.20-5.40); RED CELL DISTRIBUTION WIDTH 14.7 % (12.0-15.0); WHITE BLOOD COUNT 13.4 x10^3/uL (4.8-10.8)
[2018-09-19 08:03] LABS: ALBUMIN 3.1 g/dL (3.2-5.5); ALBUMIN/GLOBULIN RATIO 1.1 (1.0-2.2); BILIRUBIN,TOTAL 0.6 mg/dL (0.2-1.0); CALCIUM 8.1 mg/dL (8.5-10.3); CREATININE 0.3 mg/dL (0.4-1.0); MAGNESIUM 2.2 mg/dL (1.7-2.8); TOTAL PROTEIN 5.9 g/dL (6.7-8.2)
[2018-09-19] MEDS ORDERED: FUROSEMIDE 20 MG TABLET PO SCH (09:00)
[2018-09-19] MEDS ORDERED: FUROSEMIDE 40 MG/4 ML VIAL IVP SCH (09:00)
[2018-09-19 09:13] LABS: PLATELET MORPHOLOGY NORMAL APPEARANCE (NORMAL)
[2018-09-19 09:14] LABS: PLATELET ESTIMATE, MANUAL INCREASED (>450,000) (NORMAL); RBC MORPHOLOGY (MULTIPLE) NORMAL APPEARANCE (NORMAL)
[2018-09-19] MEDS: DOCUSATE SODIUM 250 MG CAPSULE PO SCH ×2 (10:20→11:17)
[2018-09-19] MEDS: diltiaZEM CD 120 MG CAPSULE PO SCH (10:20)
[2018-09-19] MEDS: POLYETHYLENE GLYCOL 3350 17 GM PACKET PO SCH ×2 (10:20→11:17)
[2018-09-19] MEDS: ASPIRIN EC 81 MG TABLET PO SCH (10:20)
[2018-09-19] MEDS: cefTRIAXone 2 GM in SODIUM CHLORIDE 0.9% MINIBAG 100 ML IV SCH (10:20)
[2018-09-19] MEDS: SENNA 8.6 MG TABLET PO SCH ×2 (10:21→11:17)
[2018-09-19] MEDS: MORPHINE SOL 10 MG/0.5 ML SYRINGE PO PRN (11:16)
--- NOTE | 2018-09-19 12:17 | XRAY Report ---
Reason: SOB Procedure Date: 09/19/2018 Accession Number: [id number] / [id number] Procedure: XR - Chest 1 View X-Ray CPT Code: 02844 FULL RESULT: EXAM: CHEST RADIOGRAPHY EXAM DATE: 09/19/2018 11:54 AM. CLINICAL HISTORY: Shortness of breath. COMPARISON: CHEST 2 VIEW 09/16/2018 9:04 AM. TECHNIQUE: 1 view. FINDINGS: Lungs/Pleura: Bibasilar hazy opacities may be exacerbated by rotation and AP portable technique. No pleural effusion. No pneumothorax. Mediastinum: Within exam limitations, the cardiomediastinal contour is normal. Other: None. IMPRESSION: Limited portable exam with bibasilar hazy opacities possibly stable accounting for differences in technique. [facility]
--- NOTE | 2018-09-19 14:28 | Discharge Plan ---
Discharge Plan Disposition: Home, Self Care Condition: Poor Prescriptions: Amox/Clav 500/125 [Augmentin] 1 each PO Q12H #14 tablet diltiaZEM CD [Cardizem Cd] 120 mg PO DAILY #15 capsule predniSONE [Deltasone] 20 mg PO [id number] #21 tab Diet: Regular Activity Restrictions: Activity as Tolerated Shower Restrictions: No (fall precaution) Instruction Topics: Atorvastatin tablets, Atrial Fibrillation, Diltiazem tablets, Amoxicillin Clavulanic Acid tablets, Prednisone tablets Additional Instructions or Follow Up instructions: you may follow up your PCP in one week, follow up your joint supervisor and oncologist as out-pt. please follow up your palliative care after discharge. You are stable after you are treated for your COPD and lung infection in the hospital. Should your symptoms return or worsen, you may present ER or call 911 for help. No Smoking: If you smoke, Please STOP! Call for help. Follow-up with: Kirti Phillips ARNP [Primary Care Provider] -
--- NOTE | 2018-09-19 14:48 | DISCHARGE SUMMARY ---
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 Pt refuse to have hospice consult. a dvise pt continue to follow up palliative care, and oncologist as out-pt (2) COPD exacerbation stable, as her baseline. 96%sats on 4 liter O2, no cough, fever, chill. continue home O2 supplement, gradually wane off steriod. continue follow up PCP (3) Oxygen dependent stable, continue O2 supplement (4) Anxiety disorder stable, continue Ativan PRN (5) afib with RVR HR improved to 89, continue PO Cardizem, follow up PCP management. pt is on palliative care, pt denies blood thinner at this time. (6) chronic lung infection prescribed Augmentin for 7 days - HPI History of Present Illness: refer from Ms. Almodovar's HPI on 09/16/18 for pt as the following: Trupti Pruett is a 68-year old female with a past medical history of end stage COPD, pulmonary fibrosis, pulmonary hypertension, lung cancer, pneumonia, anxiety, chronic sinusitis, and osteoarthritis. She pushed her life alert this morning from home because she could was not able to speak from being so short of breath. She has a pulse ox at home and it was reported low at 85%, on her usual 4L nasal cannula. The patient was seen in the ED in the past few days and started on Zithromax and a steroid taper. On exam, she reports that she continues to cough up green sputum. She is under the care of Palliative care and oncology. She states that for the past 2 days she has had increased productive cough, increased fatigue, fever, chills, and her home oxygen c oncentrator got permanently stuck on 5L which caused her anxiety. She denies chest pain, rashes, sore throat, hearing loss, increased dizziness, nausea, vomiting, or hemoptysis. Labs show a mildly elevated WBC count of 13.6, although she has been on steroids, a low hematocrit of 36.6, an elevated platelet count of 506, an elevated CO2 level of 35 (normal for her), an elevated glucose of 124, a normal troponin, a normal urine sample and other euceda unremarkable labs. She has an un-supportive family social network, and there was mention of progressing toward Hospice care, but this is not in place at this time. I will order a Hospice referral/Palliative care referral. She will be admitted for treatment of COPD exacerbation, and symptom management with plans to be discharged with Hospice. - HOSPITAL COURSE Hospital Course: pt was admitted for COPD exacerbation. pt was found to have afib RVR, and lung infection. Pt was treated with solu-medrol, antibiotics Rocephin, cardizem to control the pause. pt was stable as her baseline and d/c to home. Pt was prescribed Prednisone and Augmentin for home. pt declined hospice care - ALLERGIES Allergies/Adverse Reactions: Allergies Allergy/AdvReac Type Severity Reaction Status Date / Time No Known Drug Allergies Allergy Verified 09/16/18 08:41 - MEDICATIONS Home Medications: Ambulatory Orders Medication Instructions Recorded Confirmed Albuterol Sulfate [Proair Hfa 2 puffs INH Q4H PRN 08/31/16 09/16/18 Inhaler] Fluticasone/Salmeterol [Advair 1 puffs INH BID #1 blst.w.dev 04/23/18 09/21/18 500-50 Diskus] Morphine Sulfate [Morphine Sulf 5 mg PO TID 06/20/18 09/21/18 Oral (Roxanol)] Atorvastatin Calcium 20 mg PO QPM 07/18/18 09/16/18 amLODIPine [Norvasc] 5 mg PO DAILY 07/18/18 09/21/18 Olopatadine HCl [Pataday] 1 drops EACHEYE BID PRN 08/15/18 09/21/18 LORazepam [Lorazepam] 0.5 mg PO TID PRN 09/16/18 09/21/18 Amox/Clav 500/125 [Augmentin] 1 each PO Q12H #14 tablet MDD for 09/19/18 09/21/18 7 days diltiaZEM CD [Cardizem Cd] 120 mg PO DAILY #15 capsule 09/19/18 09/21/18 predniSONE [Deltasone] 20 mg PO [id number] #21 tab 09/19/18 09/21/18 - PHYSICAL EXAM AT DISCHARGE General Appearance: positive: No acute distress, Alert. negative: Lethargic Eyes Bilateral: positive: Normal inspection, PERRL, No lid inflammation, Conjunctivae nml ENT: positive: ENT inspection nml, Pharynx nml, No signs of dehydration. negative: Purulent nasal drainage, Pharyngeal erythema, Oral lesions Neck: positive: Nml inspection, Thyroid nml, No JVD, Trachea midline. negative: Thyromegaly, Lymphadenopathy (R), Lymphadenopathy (L), Stiff neck, Swelling/bruising, Tracheal deviation Respiratory: positive: Chest non-tender, Rales Cardiovascular: positive: Regular rate & rhythm, No murmur, No gallop. negati ve: Irregularly irregular, Extrasystoles, Tachycardia, Bradycardia, JVD present, Systolic murmur, Diastolic murmur Peripheral Pulses: positive: 2+ Abdomen: positive: Non-tender, No organomegaly, Nml bowel sounds, No distention. negative: Tenderness, Guarding, Rebound Back: positive: Nml inspection. negative: CVA tenderness (R), CVA tenderness (L) Skin: positive: Color nml, No rash, Warm, Dry. negative: Pallor Extremities: positive: Non-tender, Full ROM, Nml appearance. negative: Calf tenderness, Joint swelling, Florecita's sign/cords Neurologic/Psychiatric: positive: Oriented x3, Sensation nml, Mood/affect nml. negative: Weakness, Sensory loss, Facial droop, Slurred/abnml speech, Depressed mood/affect - LABS Result Diagrams: 09/19/18 07:34 09/19/18 07:34 - FOLLOW UP Follow Up: you may follow up your PCP in one week, follow up your warehouse coordinator and oncol ogist as out-pt. please follow up your palliative care after discharge. You are stable after you are treated for your COPD and lung infection in the hospital. Should your symptoms return or worsen, you may present ER or call 911 for help. - TIME SPENT Time Spent in Discharge (Minutes): 50
[2018-09-19 16:09] VITALS: BP 153/73
== END 2018-09-19 18:50 | disposition home or self-care (01) | DRG 190 ==
LOC: EDUNIT# → ED 08:27 → MS2 12:59
PROVIDERS: ADMIT Nurse Practitioner; ATTEND Nurse Practitioner Gerontology
DX: J44.1 Chronic obstructive pulmonary disease with (acute) exacerbation (principal); D49.1 Neoplasm of unspecified behavior of respiratory system; J18.8 Other pneumonia, unspecified organism; D38.1 Neoplasm of uncertain behavior of trachea, bronchus and lung; I48.91 Unspecified atrial fibrillation; I27.20 Pulmonary hypertension, unspecified; I10 Essential (primary) hypertension; J32.9 Chronic sinusitis, unspecified; J84.10 Pulmonary fibrosis, unspecified; F41.9 Anxiety disorder, unspecified; M19.90 Unspecified osteoarthritis, unspecified site; Z51.5 Encounter for palliative care; Z99.81 Dependence on supplemental oxygen; Z87.01 Personal history of pneumonia (recurrent); Z79.51 Long term (current) use of inhaled steroids; Z79.891 Long term (current) use of opiate analgesic; Z87.891 Personal history of nicotine dependence
CPT/HCPCS: 36415; 71045; 71046; 80053; 81001; 81003; 83690; 83735; 83880; 84100; 84132; 84484; 85025; 87086; 87275; 87276; 87640; 93005; 93306; 94640; 96360; 96361; 99283; 99284

== ENCOUNTER 2018-09-21 12:35 | Outpatient (CLI) | payer MEDICARE, MEDICAID ==
--- NOTE | 2018-09-21 16:27 | CONSULTATION NOTE ---
Palliative Care Follow Up - Referral Referring Provider: DOMINGO Reyes Time of Visit: 09/21/2018. 12:35 - 13:00 Referral setting: Home (Seen in home setting due to taxing and considerable effort required to leave the home due to significant SOA secondary to end-stage lung disease, pulmonary fibrosis, and lung mass.) Referral Reason: Post hosptial follow up for pneumonia - Information Sources Records reviewed: Previous records reviewed History/Review of Systems obtained from: Patient Exam limitations: Clinical condition (chronic SOA, labored speech) - History of Present Illness Update Brief HPI Update: -Reserved and introverted 68-year-old woman with severe end- stage COPD and pulmonary fibrosis, pulmonary hypertension, and 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 PET and MRI were incoconclusive for cancer, bur revealed no brain mets. A lung biopsy can't be performed so there is no cancer diagnosis. -This is a post-hospitalization visit after her most recent hospitalization this week. -Patient has had frequent hospitalizations / ED visits for COPD, CHF, pneumonia over the past several months: -April for COPD exacerbation, lung mass detected -May ED for SOA -Jul 18 hospital for pneumonia -Sep 13 ED for SOA -Sep 16- hospitalization for pneumonia -Patient's condition continues to deteriorate and chronic SOA worsens. This is something the patient admits and recognizes. -We have had multiple discussions trying to broach end of life planning, and the patient's response is consistently that she needs to talk to her daughter or son, and that she needs to think about it. -We have spoken about Hospice during this latest hospitalization. She was willing to talk about it more than in the past, asked me some questions, but needed to think about it. -Today I have brought over a POLST form and left it with her. She has had multiple forms given to her over the months, and misplaces them. -She says she will talk about it with her daughter, who will be coming later today. Her son is in long term now, for 3 months. -Patient is using Trilogy throughout the day and also the night. Morphine usage has increased to 5-6x per day. -She is sleeping on her recliner now because all her equipment and medicines are around her. -The living room is small, overcrowded, and medicines don't appear to be well organized. Nursing and Palliative Care have multiple times tried to organize them, but patient returns to her own system. -She was DC'd on Augmentin, and reports taking it but becomes nauseated. She is trying to take it with meals. She says she will finish the cycle despite the nausea. -Patient has [facility] been [facility] [place], [place] late, etc). -She reports today that she will be seeing her PCP physician, but needed to find the date it was scheduled. Social History - Living Situation Living arrangement: At home Living Situation: Alone, With caregiver(s) Support System: -Katie, her [employer] contact lens molder has increased the patient's LAURA caregiving hours up to 160 hours as reported by the patient. -Current caregiver, Reji Stone [phone], comes weekdays in the mornings and afternoons. -With the additional LAURA hours, the patient anticipates using those hours for weekend coverage. -Her daughter [place]ette lives on the [place]. Patient has said in the past that Ivette would stay at her apartment with her if needed. -Her son in currently in long term for 3 months. Medications/Allergies - Medications Home Medications: Ambulatory Orders Medication Instructions Recorded Confirmed Albuterol Sulfate [Proair Hfa 2 puffs INH Q4H PRN 08/31/16 09/16/18 Inhaler] Fluticasone/Salmeterol [Advair 1 puffs INH BID #1 blst.w.dev 04/23/18 09/21/18 500-50 Diskus] Morphine Sulfate [Morphine Sulf 5 mg PO TID 06/20/18 09/21/18 Oral (Roxanol)] Atorvastatin Calcium 20 mg PO QPM 07/18/18 09/16/18 amLODIPine [Norvasc] 5 mg PO DAILY 07/18/18 09/21/18 Olopatadine HCl [Pataday] 1 drops EACHEYE BID PRN 08/15/18 09/21/18 LORazepam [Lorazepam] 0.5 mg PO TID PRN 09/16/18 09/21/18 Amox/Clav 500/125 [Augmentin] 1 each PO Q12H #14 tablet MDD for 09/19/18 09/21/18 7 days diltiaZEM CD [Cardizem Cd] 120 mg PO DAILY #15 capsule 09/19/18 09/21/18 predniSONE [Deltasone] 20 mg PO [id number] #21 tab 09/19/18 09/21/18 - Allergies Allergies/Adverse Reactions: Allergies Allergy/AdvReac Type Severity Reaction Status Date / Time No Known Drug Allergies Allergy Verified 09/16/18 08:41 Review of Systems - Constitutional Constitutional: reports: Weakness. denies: Fever, Chills - Ears, Nose & Throat Ears, Nose & Throat: reports: Postnasal drainage, Other (chronic rhinitis) - Cardiovascular Cardiovascular: reports: Exertional dyspnea, Decr. exercise tolerance - Respiratory Respiratory: reports: SOB at rest (worsening), SOB with exertion (worsening). denies: Wheezing - Genitourinary Genitourinary: denies: Incontinence - Musculoskeletal Musculoskeletal: reports: Assistive devices (walker) - Other Findings Other Findings: Focused ROS Physical Exam - Vital Signs Temperature: 96.2 F Pulse Rate: 102 (chronic tachy) O2 Saturation: 88 (2-4 L O2) Blood Pressure: 154/73 - Physical Exam General Appearance: positive: Alert Eyes Bilateral: positive: No lid inflammation, Conjunctivae nml, No scleral icterus ENT: positive: No signs of dehydration Neck: positive: Trachea midline Cardiovascular: positive: No murmur, Tachycardia (chronic) Respiratory: positive: Chest non-tender, Diminished throughout, Other (chronic, worsening SOA). negative: Wheezes Abdomen: positive: Non-tender Skin: positive: Pallor Extremities: positive: Pedal edema (2+, wasn't elevating legs, not wearing compression stockings, they're too tight. Used wraps that caregiver puts on for her) Neurologic/Psychiatric: positive: Oriented x3, Flat affect Palliative Care - POLST Patient has POLST: No Dyspnea: Severe (7-10) (chronic, using meds and inhalers, neb, Trilogy respirator at maximum) Performance Status: Worsening SOA, now sleeps in her chair in the living room because that's where all the equipment is set up. - Palliative Care Discussion: Patient does not want to talk about POLST or Hospice, are deflects by needing to "think about it," and needing to "talk to my daughter about it" When invited to talk about concerns, questions, or worries, she will make a short comment but resists carrying the discussion any further. Last week prior to the most recent hospitalization she appeared to be more open to possibly switching to Hospice, but in the end, needed to think about it. Patient had discussed choosing DNR but still getting intubation. Hospitalist FRANKIE Canales said the hospital would try to accommodate this; Hospice would not be able to accommodate such a request. So if this is truly the patient's goal, she is not appropriate for Hospice. Palliative care left another blank POLST form with her, and the patient commented that she would want "selective treatment." She does not discuss intubation today. Impression and Recommendations - Palliative Care Impression: Patient's SOA and condition continue to deteriorate. She was just DC'd from hospital this week, there for pneumonia, and currently on oral Augmentin, and says she will complete the regimen Patient has no POLST and does not address end of life discussions, needs to think about it and discuss it with daughter. Palliative care will continue to provide support. Recommendations/Counseling Done: Neoplasm of uncertain behavior of trachea, bronchus, and lung: She has missed two oncology appointments, patient may follow up with the [facility]. Pneumonia and worsening dyspnea: patient being treated symptomatically at maximum. She was DC'd on 7-day course of Augmentin, says she plans to complete the course despite nausea. She continues all her respiratory meds and therapies at full strength, including Trilogy, nebulizer, morphine (now 5-6x day), and inhalers. She is on another prednisone taper. I gave her a new script (60ml) for morphine since her usage has increased, now 5-6x day. HTN: BP chronically elevated, today in her normal range, 154/73. Is on amlodipine and continues valsartan. CHF: Recurrent CHF exacerbations. Currently on diltiazem. Recommend elevation and compression for pedal edema. Advanced care planning: No POLST, no progress in discussion of goals of care. She wants to talk to her daughter. Left a POLST, she indicated she might want selective treatment, we did not discuss intubation or Hospice. Palliative care will continue to offer support. Time Spent: 25 minutes with more than 50% of the time spent on counseling, education, and coordination of care.
== END 2018-09-21 12:36 | disposition home or self-care (01) ==
LOC: PC 12:35
PROVIDERS: ATTEND Nurse Practitioner
DX: Z51.5 Encounter for palliative care (principal); D38.1 Neoplasm of uncertain behavior of trachea, bronchus and lung; J18.9 Pneumonia, unspecified organism; J44.0 Chronic obstructive pulmonary disease with (acute) lower respiratory infection; R11.0 Nausea; T36.0X5A Adverse effect of penicillins, initial encounter; I11.0 Hypertensive heart disease with heart failure; I50.9 Heart failure, unspecified; J84.10 Pulmonary fibrosis, unspecified; I27.20 Pulmonary hypertension, unspecified; Z87.01 Personal history of pneumonia (recurrent); Z79.891 Long term (current) use of opiate analgesic; Z79.51 Long term (current) use of inhaled steroids; Z79.899 Other long term (current) drug therapy
CPT/HCPCS: 99348

== ENCOUNTER 2018-10-13 06:14 | Outpatient (CLI) | payer MEDICARE, MEDICAID | END 2018-10-13 06:15 | disposition critical access hospital (66) | LOC: EMS 06:14 | PROVIDERS: ATTEND Surgery | DX: R06.02 Shortness of breath (principal); R05 Cough | CPT/HCPCS: A0425; A0427 ==

== ENCOUNTER 2018-10-13 06:18 | Inpatient (IN) | payer MEDICARE, MEDICAID ==
--- NOTE | 2018-10-13 06:31 | ED Physician Documentation ---
PD HPI DYSPNEA - Stated complaint Stated Complaint: SOA - Chief complaint Chief Complaint: Resp - History obtained from History obtained from: Patient, EMS - History of Present Illness Timing - onset: How many months ago, Chronic Timing - onset during: Exertion Timing - duration: Months Timing - details: Gradual onset, Still present, Intermittant Pain level max: 0 Pain level now: 0 Inciting event(s): No: Out of meds, URI, Exposure (ie smoke), Immobil ization/travel Improved by: O2, Inhaler/neb, Steroids, Rest Worsened by: Exertion Associated symptoms: Cough, Wheezing, Bilateral edema. No: Fever, Hemoptysis, Chest pain / discomfort, Palpitations Similar symptoms before: Work up / diagnostics Recently seen: Not recently seen - Additional information Additional information: 68-year-old female with history of COPD on home oxygen at 4.5 L per nasal cannula, inhaler/nebulizer and prednisone here with complaint of shortness of breath the past few months. Patient stated she has been treating herself and usually feels better after Her prescribed medications. Today she felt like more short of breath When she tried to get to the bathroom and had difficulty getting to her nebulizer. Patient denies any trauma, travel, Immobility or sick contacts.EMS reported pt refused CPAP/BIPAP during transport. 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 HEENT: Chronic sinusitis Psych: Depression, Anxiety Musculoskeletal: Osteoarthritis, Fatigue Derm: None - Past Surgical History Past Surgical History: No General: Cholecystectomy HEENT: Tonsil/Adenoidectomy - Present Medications Home Medications: Ambulatory Orders Medication Instructions Recorded Confirmed Albuterol Sulfate [Proair Hfa 2 puffs INH Q4H PRN 08/31/16 10/13/18 Inhaler] Fluticasone/Salmeterol [Advair 1 puffs INH BID #1 blst.w.dev 04/23/18 10/13/18 500-50 Diskus] Morphine Sulfate [Morphine Sulf 5 mg PO TID 06/20/18 10/13/18 Oral (Roxanol)] Atorvastatin Calcium 20 mg PO QPM 07/18/18 10/13/18 amLODIPine [Norvasc] 5 mg PO DAILY 07/18/18 10/13/18 Olopatadine HCl [Pataday] 1 drops EACHEYE BID PRN 08/15/18 10/13/18 LORazepam [Lorazepam] 0.5 mg PO TID PRN 09/16/18 10/13/18 diltiaZEM CD [Cardizem Cd] 120 mg PO DAILY #15 capsule 09/19/18 10/05/18 predniSONE [Deltasone] 20 mg PO [id number] #21 tab 09/19/18 10/13/18 Fluconazole 100 mg PO DAILY 10/13/18 10/13/18 Ipratropium/Albuterol Sulfate 3 ml IH TID 10/13/18 10/13/18 [Iprat-Albut 0.5-3(2.5) mg/3 ml] - Allergies Allergies/Adverse Reactions: Allergies Allergy/AdvReac Type Severity Reaction Status Date / Time No Known Drug Allergies Allergy Verified 10/13/18 06:41 - Social History Does the pt smoke?: No Smoking Status: Never smoker Does the pt drink ETOH?: Yes Does the pt have substance abuse?: No - Immunizations Immunizations are current?: No Immunizations: TDAP >10years/unknown - POLST Patient has POLST: No POLST Status: Full Code PD ED PE NORMAL - Vitals Vital signs reviewed: Yes - General General: Alert and oriented X 3, No acute distress, Well developed/nourished - HEENT HEENT: Moist mucous membranes, Pharynx benign - Neck Neck: Supple, no meningeal sign - Cardiac Cardiac: RRR, No murmur - Respiratory Respiratory: Other (Tachypneic. Bilateral expiratory wheezing. Breath sounds sounds tight. Patient speaking in words.) - Abdomen Abdomen: Normal bowel sounds, Soft, Non tender, Non distended - Back Back: No CVA TTP - Derm Derm: Normal color, Warm and dry - Extremities Extremities: No deformity, Other (Bilateral trace pedal edema nonpitting.) - Neuro Neuro: Alert and oriented X 3 - Psych Psych: Normal mood, Normal affect Results - Vitals Vitals: Vital Signs - 24 hr 10/13/18 10/13/18 10/13/18 06:16 06:33 06:51 Temperature 37.3 C Heart Rate 131 H 118 H 110 H Respiratory 22 27 H 17 Rate Blood Pressure 165/105 H 130/86 H 130/86 H O2 Saturation 98 96 96 Oxygen O2 Source Nasal cannula Oxygen Flow Rate 4 - EKG (time done) 0630 Rate: Rate (enter#) Rhythm: Sinus tachycardia [place]: Normal Intervals: Normal ID QRS: Normal Ischemia: Non specific changes - Labs Labs: Laboratory Tests 10/13/18 10/13/18 10/13/18 06:31 06:31 06:31 WBC 6.4 RBC 3.97 L Hgb 11.6 L Hct 36.8 L MCV 92.9 MCH 29.3 MCHC 31.5 L RDW 15.5 H Plt Count 469 H MPV 5.9 L Neut # (Auto) Not Reportable Lymph # (Auto) Not Reportable [place] # (Auto) Not Reportable Eos # (Auto) Not Reportable Baso # (Auto) Not Reportable Absolute Nucleated RBC Not Reportable Total Counted 100 Band Neuts % (Manual) 4 Abnorm Lymph % (Manual) 0 Metamyelocytes % 2 H Myelocytes % 2 H Nucleated RBC % Not Reportable Neutrophils # (Manual) 1.9 Lymphocytes # (Manual) 3.6 H Monocytes # (Manual) 0.3 Eosinophils # (Manual) 0.4 Basophils # (Manual) 0.0 Differential Comment MANUAL DIFFERENTIAL Platelet Estimate INCREASED (>450,000) RBC Morph Micro Appear NORMAL APPEARANCE Bld Gas Analysis Time Sample Site ABG pH ABG pCO2 ABG pO2 ABG HCO3 ABG Total CO2 ABG O2 Saturation ABG Base Excess Heriberto Test Respiration Rate O2 Delivery Device O2 Liters/Min Sodium 139 Potassium 3.7 Chloride 96 L Carbon Dioxide 36 H Anion Gap 7.0 BUN 13 Creatinine 0.7 Estimated GFR (MDRD) 83 L Glucose 103 H Calcium 8.5 Total Bilirubin 0.2 AST 18 ALT 13 Alkaline Phosphatase 66 Troponin I < 0.04 B-Natriuretic Peptide Total Protein 6.7 Albumin 3.5 Globulin 3.2 Albumin/Globulin Ratio 1.1 Lipase 24 10/13/18 10/13/18 06:31 07:26 WBC RBC Hgb Hct MCV MCH MCHC RDW Plt Count MPV Neut # (Auto) Lymph # (Auto) [place] # (Auto) Eos # (Auto) Baso # (Auto) Absolute Nucleated RBC Total Counted Band Neuts % (Manual) Abnorm Lymph % (Manual) Metamyelocytes % Myelocytes % Nucleated RBC % Neutrophils # (Manual) Lymphocytes # (Manual) Monocytes # (Manual) Eosinophils # (Manual) Basophils # (Manual) Differential Comment Platelet Estimate RBC Morph Micro Appear Bld Gas Analysis Time 0726 Sample Site LEFT RADIAL ABG pH 7.32 L ABG pCO2 68 H* ABG pO2 68 L ABG HCO3 34.2 H ABG Total CO2 36.3 H ABG O2 Saturation 93 L ABG Base Excess 6.1 H Heriberto Test POSITIVE Respiration Rate 18 O2 Delivery Device NASAL CANNULA O2 Liters/Min 4.00 Sodium Potassium Chloride Carbon Dioxide Anion Gap BUN Creatinine Estimated GFR (MDRD) Glucose Calcium Total Bilirubin AST ALT Alkaline Phosphatase Troponin I B-Natriuretic Peptide 38 Total Protein Albumin Globulin Albumin/Globulin Ratio Lipase PD MEDICAL DECISION MAKING - ED course Complexity details: reviewed results, re-evaluated patient, considered differential (COPD exacerbation, pneumonia, PE, ACS,Respiratory distress), d/w patient, d/w PMD (0750 Case discussed with hospitalist Dr Munroe. She will admit pt to inpt tele.) ED course: 06 52 patient states feeling better after DuoNeb and Solu-Medrol which was given by EMS. Patient is no longer tachypneic. And her tachycardia from 120s is down to 106. Denies any chest pain or shortness of breath. Expiratory wheezing decrease and breath sounds less tight compared to when she arrived.0730 Paged hospitalist twice and DISPATCH ASSOCIATE said they're taking report. RT at the bedside. They know the pt from previously and had been refusing BIPAP. Departure - Departure Disposition: 66 [facility] DC/Xfer Clinical Impression: COPD exacerbation
[2018-10-13 06:35] LABS: NEUTROPHILS % (AUTO) 39.3 %
[2018-10-13 06:42] LABS: BASOPHILS % (AUTO) 0.7 %; EOSINOPHILS % (AUTO) 6.7 %; HGB - HEMOGLOBIN 11.6 g/dL (12.0-16.0); LYMPHOCYTES % (AUTO) 44.5 %; MEAN CORPUSCULAR HEMOGLOBIN 29.3 pg (27.0-31.0); MEAN CORPUSCULAR HGB CONC 31.5 g/dL (32.0-36.0); MEAN CORPUSCULAR VOLUME 92.9 fL (81.0-99.0); MEAN PLATELET VOLUME 5.9 fL (7.9-10.8); MONOCYTES % (AUTO) 8.8 %; PLT - PLATELET COUNT 469 10^3/uL (130-450); RED BLOOD COUNT 3.97 10^6/uL (4.20-5.40); RED CELL DISTRIBUTION WIDTH 15.5 % (12.0-15.0); WHITE BLOOD COUNT 6.4 x10^3/uL (4.8-10.8)
[2018-10-13 06:44] LABS: ABNORMAL LYMPHS % (MANUAL) 0 %
[2018-10-13 06:48] LABS: ALBUMIN 3.5 g/dL (3.2-5.5); ALBUMIN/GLOBULIN RATIO 1.1 (1.0-2.2); BILIRUBIN,TOTAL 0.2 mg/dL (0.2-1.0); CALCIUM 8.5 mg/dL (8.5-10.3); CREATININE 0.7 mg/dL (0.4-1.0); TOTAL PROTEIN 6.7 g/dL (6.7-8.2)
[2018-10-13 07:08] LABS: BAND NEUTROPHILS % (MANUAL) 4 %; DIFFERENTIAL COMMENT MANUAL DIFFERENTIAL; EOSINOPHILS # (MANUAL) 0.4 10^3/uL (0-0.7); LYMPHOCYTES # (MANUAL) 3.6 10^3/uL (1.5-3.5); LYMPHOCYTES % (MANUAL) 56 %; METAMYELOCYTES % (MANUAL) 2 %; MONOCYTES # (MANUAL) 0.3 10^3/uL (0.0-1.0); MYELOCYTES % (MANUAL) 2 %; NEUTROPHILS # (MANUAL) 1.9 10^3/uL (1.5-6.6); NEUTROPHILS % (MANUAL) 25 %; PLATELET ESTIMATE, MANUAL INCREASED (>450,000) (NORMAL); RBC MORPHOLOGY (MULTIPLE) NORMAL APPEARANCE (NORMAL)
--- NOTE | 2018-10-13 07:17 | XRAY Report ---
Reason: chest pain Procedure Date: 10/13/2018 Accession Number: [id number] / [id number] Procedure: XR - Chest 1 View X-Ray CPT Code: 56664 FULL RESULT: EXAM: CHEST RADIOGRAPHY EXAM DATE: 10/13/2018 07:01 AM. CLINICAL HISTORY: Chest pain. COMPARISON: CHEST 1 VIEW 09/19/2018 11:[address] CHEST W/ 10/02/2018 11:34 AM. TECHNIQUE: 1 view. FINDINGS: Lungs/Pleura: The patient is mildly rotated. There are streaky bilateral basilar pulmonary opacities, similar to prior. No pleural effusion. No pneumothorax. Lungs are mildly hyperinflated with flattening of the diaphragm, similar to prior exams. Mediastinum: Within exam limitations, the cardiomediastinal contour is normal. There is mild atherosclerotic calcification of the aortic arch, better seen on the prior exam. Other: No acute osseous abnormality. IMPRESSION: 1. Streaky bilateral basilar atelectasis or infiltrate appears similar to the prior exam. 2. Lungs are mildly hyperinflated with flattening of the diaphragm, consistent with emphysema seen on recent prior CT. RADIA
--- NOTE | 2018-10-13 07:35 | ED Physician Documentation ---
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 HEENT: Chronic sinusitis Psych: Depression, Anxiety Musculoskeletal: Osteoarthritis, Fatigue Derm: None - Past Surgical History Past Surgical History: No General: Cholecystectomy HEENT: Tonsil/Adenoidectomy - Present Medications Home Medications: Ambulatory Orders Medication Instructions Recorded Confirmed RX: Albuterol Sulfate [Proair Hfa 2 puffs INH Q4H PRN 08/31/16 10/13/18 Inhaler] RX: Fluticasone/Salmeterol [Advair 1 puffs INH BID #1 blst.w.dev 04/23/18 10/13/18 500-50 Diskus] RX: Atorvastatin Calcium 20 mg PO QPM 07/18/18 10/13/18 RX: amLODIPine [Norvasc] 5 mg PO DAILY 07/18/18 10/13/18 RX: diltiaZEM CD [Cardizem Cd] 120 mg PO DAILY #15 capsule 09/19/18 10/13/18 RX: Albuterol 2.5 mg INH QID 10/13/18 10/13/18 - Allergies Allergies/Adverse Reactions: Allergies Allergy/AdvReac Type Severity Reaction Status Date / Time No Known Drug Allergies Allergy Verified 10/13/18 06:41 - Social History Does the pt smoke?: No Smoking Status: Never smoker Does the pt drink ETOH?: Yes Does the pt have substance abuse?: No - Immunizations Immunizations are current?: No Immunizations: TDAP >10years/unknown - POLST Patient has POLST: No POLST Status: Full Code Results - Vitals Vitals: Vital Signs - 24 hr 10/13/18 10/13/18 10/13/18 06:16 06:33 06:51 Temperature 37.3 C Heart Rate 131 H 118 H 110 H Respiratory 22 27 H 17 Rate Blood Pressure 165/105 H 130/86 H 130/86 H O2 Saturation 98 96 96 10/13/18 07:57 Temperature 36.7 C Heart Rate 103 H Respiratory 17 Rate Blood Pressure 94/62 O2 Saturation 97 Oxygen O2 Source Nasal cannula Oxygen Flow Rate 4 - Labs Labs: Laboratory Tests 10/13/18 10/13/18 10/13/18 06:31 06:31 06:31 WBC 6.4 RBC 3.97 L Hgb 11.6 L Hct 36.8 L MCV 92.9 MCH 29.3 MCHC 31.5 L RDW 15.5 H Plt Count 469 H MPV 5.9 L Neut # (Auto) Not Reportable Lymph # (Auto) Not Reportable [place] # (Auto) Not Reportable Eos # (Auto) Not Reportable Baso # (Auto) Not Reportable Absolute Nucleated RBC Not Reportable Total Counted 100 Band Neuts % (Manual) 4 Abnorm Lymph % (Manual) 0 Metamyelocytes % 2 H Myelocytes % 2 H Nucleated RBC % Not Reportable Neutrophils # (Manual) 1.9 Lymphocytes # (Manual) 3.6 H Monocytes # (Manual) 0.3 Eosinophils # (Manual) 0.4 Basophils # (Manual) 0.0 Differential Comment MANUAL DIFFERENTIAL Platelet Estimate INCREASED (>450,000) RBC Morph Micro Appear NORMAL APPEARANCE Bld Gas Analysis Time Sample Site ABG pH ABG pCO2 ABG pO2 ABG HCO3 ABG Total CO2 ABG O2 Saturation ABG Base Excess Heriberto Test Respiration Rate O2 Delivery Device O2 Liters/Min Sodium 139 Potassium 3.7 Chloride 96 L Carbon Dioxide 36 H Anion Gap 7.0 BUN 13 Creatinine 0.7 Estimated GFR (MDRD) 83 L Glucose 103 H Calcium 8.5 Total Bilirubin 0.2 AST 18 ALT 13 Alkaline Phosphatase 66 Troponin I < 0.04 B-Natriuretic Peptide Total Protein 6.7 Albumin 3.5 Globulin 3.2 Albumin/Globulin Ratio 1.1 Lipase 24 10/13/18 10/13/18 06:31 07:26 WBC RBC Hgb Hct MCV MCH MCHC RDW Plt Count MPV Neut # (Auto) Lymph # (Auto) [place] # (Auto) Eos # (Auto) Baso # (Auto) Absolute Nucleated RBC Total Counted Band Neuts % (Manual) Abnorm Lymph % (Manual) Metamyelocytes % Myelocytes % Nucleated RBC % Neutrophils # (Manual) Lymphocytes # (Manual) Monocytes # (Manual) Eosinophils # (Manual) Basophils # (Manual) Differential Comment Platelet Estimate RBC Morph Micro Appear Bld Gas Analysis Time 0726 Sample Site LEFT RADIAL ABG pH 7.32 L ABG pCO2 68 H* ABG pO2 68 L ABG HCO3 34.2 H ABG Total CO2 36.3 H ABG O2 Saturation 93 L ABG Base Excess 6.1 H Heriberto Test POSITIVE Respiration Rate 18 O2 Delivery Device NASAL CANNULA O2 Liters/Min 4.00 Sodium Potassium Chloride Carbon Dioxide Anion Gap BUN Creatinine Estimated GFR (MDRD) Glucose Calcium Total Bilirubin AST ALT Alkaline Phosphatase Troponin I B-Natriuretic Peptide 38 Total Protein Albumin Globulin Albumin/Globulin Ratio Lipase PD MEDICAL DECISION MAKING - ED course ED course: assumed care 7 AM 68 f known COPD home O2 dependent to ER with acute exacerbation of COPD no fever has productive cough duoneb steroids en route from in ED has received 2 more duoneb per service administrator is much improved but still wheezing and not able to dc home CXR no change from prior she is chronically hypercanpenic she refused BiPAP per service administrator plan is to admit - paged hospitalist at [phone] - waiting for call back for admit service administrator spoke to hospitalist who came to see and admit pt Departure - Departure Disposition: 66 [facility] DC/Xfer Clinical Impression: COPD exacerbation Discharge Date/Time: 10/13/18 09:00
[2018-10-13 07:36] LABS: ABG PH 7.32 (7.35-7.45)
[2018-10-13 07:37] LABS: ABG BASE EXCESS 6.1 mmol/L (-2.0-3.0); ABG HCO3 34.2 mmol/L (22.0-26.0); ABG OXYGEN SATURATION 93 % (94-98); ABG PO2 68 mmHg (80-100); ABG TCO2 36.3 MMOL/L (21.0-29.0); ALLEN TEST POSITIVE
[2018-10-13 07:39] LABS: ABG PCO2 68 mmHg (34-45)
--- NOTE | 2018-10-13 08:18 | HISTORY & PHYSICAL EXAMINATION ---
Chief Complaint - Chief Complaint Chief Complaint: increased shortness of breath, productive cough. History of Present Illness - Admitted From Admitted From:: ED - History Obtained From Records Reviewed: yes History obtained from: chart review, patient Exam Limitations: none - History of Present Illness HPI Comment/Other: Trupti Pruett is a 68-year old female with a past medical history of end stage COPD, pulmonary fibrosis, pulmonary hypertension, lung cancer, pneumonia, anxiety, chronic sinusitis, and osteoarthritis. She pushed her life alert this morning from home because she could was not able to speak from being so short of breath. She has a pulse ox at home, but states that she did not even have the energy to check it. She has been on her usual 4L nasal cannula. The patient was brought to the ED via EMS. On exam, she reports that she continues to cough up milky yellow, thick sputum. She is under the care of Palliative care and oncology. She states that for the past 2 days she has had increased productive cough, increased fatigue, fever, chills, and has been just sleeping in her recliner as she is too weak to make it into bed at night. She denies chest pain, rashes, sore throat, hearing loss, increased dizziness, nausea, vomiting, or hemoptysis. Labs show a mildly elevated WBC count of 13.6, although she has been on steroids, a low hematocrit of 36.6, an elevated platelet count of 506, an elevated CO2 level of 35 (normal for her), an elevated glucose of 124, a normal troponin, a normal urine sample and other euceda unremarkable labs. She has an un-supportive family social network, and there was mention of progressing toward Hospice care, but this is not in place at this time. I have ordered a Hospice referral. She will be admitted for treatment of COPD exacerbation, and symptom management with plans to be discharged with Hospice. 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 Mom smoked up until her and she of COPD complications. Dad also of COPD. She has 4 brothers and one sister. All of them live in [place] except except one who lives in the [facility]. She says that no one has diabetes, hypertension, heart disease, or emphysema. Of 3 children her youngest daughter with killed or under suspicious circumstances. Her other 2 children are healthy. Social History Notes: Patient is a woman who lives alone in [place]. She was born in [place] and is retired. She has two children. The patient has lived on [facility] since 1983. Prior to that she lived in the [facility]. The patient has a daughter and son both of whom live on [facility]. The patient quit smoking Around 2007 but smoked 1 pack a day for over 50 years Starting at the age of 17. The patient does drink 1 beer a night. In the past she has done marijuana. When she was to her first he was a cocaine addict and she tried cocaine a few times but she never used it on a regular basis. She has not used it since her 20s.She has a Jonathan worker that comes by every day except Monday and Monday. But the jonathan worker is only a few hours a day. Because of excessive breathlessness, end-stage lung disease, she has become homebound over the last year - Substance History Use: Uses substance without health or social issues: NONE (Quit smoking but previously smoked 1PPD for over 50 years), Alcohol (1 beer a night) - POLST Patient has POLST: No POLST Status: Full Code Meds/Allgy - Home Medications Home Medications: Ambulatory Orders Medication Instructions Recorded Confirmed Albuterol Sulfate [Proair Hfa 2 puffs INH Q4H PRN 08/31/16 10/13/18 Inhaler] Fluticasone/Salmeterol [Advair 1 puffs INH BID #1 blst.w.dev 04/23/18 10/13/18 500-50 Diskus] Atorvastatin Calcium 20 mg PO QPM 07/18/18 10/13/18 amLODIPine [Norvasc] 5 mg PO DAILY 07/18/18 10/13/18 diltiaZEM CD [Cardizem Cd] 120 mg PO DAILY #15 capsule 09/19/18 10/13/18 Albuterol 2.5 mg INH QID 10/13/18 10/13/18 - Allergies Allergies/Adverse Reactions: Allergies Allergy/AdvReac Type Severity Reaction Status Date / Time No Known Drug Allergies Allergy Verified 10/13/18 06:41 Review of Systems - Constitutional Constitutional: reports: Fatigue, Weakness, Poor appetite - Eyes Eyes: reports: Vision loss - Ears, Nose & Throat Ears, Nose & Throat: reports: Nasal congestion, Postnasal drainage, Sore throat - Cardiovascular Cariovascular: reports: Palpitations, Exertional dyspnea, Decr. exercise tolerance, Orthopnea - Respiratory Respiratory: reports: Cough, Sputum production, Orthopnea, SOB at rest, SOB with exertion - Gastrointestinal Gastrointestinal: reports: Abdominal distention, Nausea, Reflux/heartburn, Bloating, Poor appetite - Genitourinary Genitourinary: reports: Dysuria, Incontinence, Nocturia - Musculoskeletal Musculoskeletal: reports: Back pain, Muscle weakness - Integumentary Integumentary: reports: Dryness - Neurological Neurological: reports: General weakness, Headache, Memory problems, Pre-existing deficit, Incoordination - Psychiatric Psychiatric: reports: Depression, Anxiety - Hematologic/Lymphatic Hematologic/Lymphatic: reports: Recurrent infections - All Other Systems All Other Systems: reports: Reviewed and negative Prior Level of Functionality: Lives independently with her daughter. JONATHAN care givers nearly every day of the week. Uses a walker and continuous oxygen. Poor activity tolerance and is followed by Palliative care. Exam - Vital Signs Reviewed Vital Signs: Yes Vital Signs: Vital Signs x48h Temp Pulse Resp BP Pulse Ox 10/13/18 07:57 36.7 C 103 H 17 94/62 97 10/13/18 06:51 110 H 17 130/86 H 96 10/13/18 06:33 118 H 27 H 130/86 H 96 10/13/18 06:16 37.3 C 131 H 22 165/105 H 98 - Physical Exam General Appearance: positive: Alert, Mild distress, Anxious Eyes Bilateral: positive: PERRL, No lid inflammation ENT: positive: Pharynx nml, Dry mucous membranes Neck: positive: Thyroid nml, No JVD, Lymphadenopathy (R), Lymphadenopathy (L), Stiff neck Respiratory: positive: Chest non-tender, Wheezes, Rhonchi Cardiovascular: positive: Regular rate & rhythm, No gallop, Tachycardia, Systolic murmur Peripheral Pulses: positive: 2+ Abdomen: positive: Non-tender, Nml bowel sounds, Other (rounded, obese, soft) Back: positive: Nml inspection Skin: positive: No rash, Warm, Dry Extremities: positive: Non-tender, Pedal edema, Joint swelling Neurologic/Psychiatric: positive: Oriented x3, CN's nml (2-12), Motor nml, Sensation nml, Weakness, Slurred/abnml speech (related to work of breathing.), Depressed mood/affect Reflexes: Bicep (R): 3+, Bicep (L): 3+ Sepsis Event Note (H) - Evaluation Current Stage of Sepsis: Ruled out Conclusion/Plan - Problem List (1) COPD exacerbation Conclusion/Plan: The patient admits to a more difficult time breathing that first began a few days ago, but this morning she was trying to make her way to the bathroom, but became profoundly short of breath since she missed a dose of her liquid morphine, so pressed her medial alert button that she wears around her neck. She states that she struggled to get back to her chair and it seemed like for ever before EMS arrived. She states that she has also been coughing up more productive sputum lately that is milky, yellow and thick. She states that she has been more compliant with the use of her home Trilogy since being switched to a different mouth piece. Plan: Start IV steroids, IV antibiotics, expectorants, and respiratory care with nebulizers. (2) Chronic respiratory failure with hypoxia, on home oxygen therapy Conclusion/Plan: The patient has been dependent on home oxygen for the past several years and her usual dose is 4L per nasal cannula. She complains about having too many oxygen tanks as they are cumbersome. She is also prescribed a Trilogy device. Plan: Continue to monitor. (3) Hypertension Conclusion/Plan: The patient is both hypertensive and tachycardic. I have ordered tele for now and she has been known to have times of atrial fibrillation. She is supposed to take diltiazem and norvasc at home. Plan; Continue meds and monitor on tele. Qualifiers: Hypertension type: essential hypertension Qualified Code(s): I10 - Essential (primary) hypertension (4) Chronic sinusitis Conclusion/Plan: The patient routinely has "soreness" in her nostrils and has a long history of sinusitis with complaints of frontal headaches and plugged nasal passages. She has tried Afrin in the past that seems to help. Plan: Afrin for 3 days max that will start in the AM. Qualifiers: Sinusitis location: frontal Qualified Code(s): J32.1 - Chronic frontal sinusitis (5) Palliative care status Conclusion/Plan: Although the patient cannot make up her mind on becoming a DNR as her prognosis is extremely poor, as per the last discharge summary, she may agree to no intubation. To clarify this today, she was asked again about intubation, and states only if I am passed out, otherwise she is way too clausterphobic for this. Plan: Continue full code status. An order for Hospice care has been made. (6) Tachycardia Conclusion/Plan: The patient may be not taking her home diltiazem as prescribed, and is found to have heart rates in the 130's on admission. She has been prescribed Xopenex to prevent increased heart rates and her home diltiazem has been resumed. Plan: Continue on tele, give diltiazem. - Lab Results Lab results reviewed: Yes Fish Bones: 10/15/18 05:38 10/15/18 05:38 - Diagnostic Imaging Results Diagnostic Imaging Results: positive: Prelim report reviewed Core Measures - Anticipated LOS I expect patient to be DC'd or transferred within 96 hours.: Yes - DVT/VTE - Prophylaxis VTE/DVT Device ordered at admit?: Yes VTE/DVT Prophylaxis med ordered at admit?: Yes - Stroke - Rehab Assessment Rehab services assessment to be ordered?: Yes - AMI - Statin at Admit Aspirin Prescribed on Admit: Yes
[2018-10-13] MEDS: diltiaZEM CD 120 MG CAPSULE PO SCH (11:32)
[2018-10-13] MEDS: POLYETHYLENE GLYCOL 3350 17 GM PACKET PO SCH (11:32)
[2018-10-13] MEDS: SODIUM CHLORIDE FLUSH 0.9% 10 ML SYRINGE IVP SCH ×2 (12:00→16:51)
[2018-10-13] MEDS: LEVALBUTEROL 1.25 MG/3 ML NEB INH SCH ×2 (12:30→19:51)
[2018-10-13] MEDS: LEVALBUTEROL 1.25 MG/3 ML NEB INH PRN (16:15)
[2018-10-13] MEDS: MORPHINE 2 MG/ML CARPUJECT IVP PRN (16:51)
[2018-10-13] MEDS: MORPHINE SOL 10 MG/0.5 ML SYRINGE PO PRN (18:16)
[2018-10-13] MEDS ORDERED: ACETAMINOPHEN 325 MG TABLET PO PRN (18:40)
[2018-10-13] MEDS ORDERED: levoFLOXacin 500 MG/100 ML 500 MG/100 ML BAG IV SCH (19:00)
[2018-10-13] MEDS: NS W/20 MEQ KCL 1,000 ML IV SCH (19:47)
[2018-10-13] MEDS: SODIUM CHLORIDE FLUSH 0.9% 10 ML SYRINGE IVP PRN ×2 (19:47→21:22)
[2018-10-13] MEDS: MORPHINE SOL 10 MG/0.5 ML SYRINGE PO SCH (19:47)
[2018-10-13] MEDS: FORMOTEROL FUMARATE NEB 20 MCG/2 ML INH SCH (19:51)
[2018-10-13] MEDS: BUDESONIDE 0.5 MG/2 ML NEB INH SCH (19:51)
[2018-10-13] MEDS: methylPREDNISolone SUCCINATE 40 MG/ML VIAL IVP SCH (21:21)
[2018-10-14] MEDS: MORPHINE SOL 10 MG/0.5 ML SYRINGE PO PRN (01:18)
[2018-10-14] MEDS: SODIUM CHLORIDE FLUSH 0.9% 10 ML SYRINGE IVP SCH ×3 (01:20→16:03)
[2018-10-14] MEDS: MORPHINE SOL 10 MG/0.5 ML SYRINGE PO SCH ×4 (01:23→17:59)
[2018-10-14] MEDS: LEVALBUTEROL 1.25 MG/3 ML NEB INH PRN ×2 (01:44→11:30)
[2018-10-14 06:30] LABS: WHITE BLOOD COUNT 5.2 x10^3/uL (4.8-10.8)
[2018-10-14 06:36] LABS: BASOPHILS % (AUTO) 0.4 %; HGB - HEMOGLOBIN 11.1 g/dL (12.0-16.0); LYMPHOCYTES % (AUTO) 14.2 %; MEAN CORPUSCULAR HEMOGLOBIN 29.9 pg (27.0-31.0); MEAN CORPUSCULAR HGB CONC 32.3 g/dL (32.0-36.0); MEAN CORPUSCULAR VOLUME 92.4 fL (81.0-99.0); MEAN PLATELET VOLUME 6.2 fL (7.9-10.8); MONOCYTES % (AUTO) 1.1 %; NEUTROPHILS % (AUTO) 84.3 %; PLT - PLATELET COUNT 406 10^3/uL (130-450); RED BLOOD COUNT 3.71 10^6/uL (4.20-5.40); RED CELL DISTRIBUTION WIDTH 15.1 % (12.0-15.0)
[2018-10-14] MEDS: methylPREDNISolone SUCCINATE 40 MG/ML VIAL IVP SCH ×3 (06:41→21:51)
[2018-10-14] MEDS: SODIUM CHLORIDE FLUSH 0.9% 10 ML SYRINGE IVP PRN ×3 (06:42→21:51)
[2018-10-14 06:43] LABS: ALBUMIN 3.1 g/dL (3.2-5.5); BILIRUBIN,TOTAL 0.4 mg/dL (0.2-1.0); CALCIUM 8.1 mg/dL (8.5-10.3); CREATININE 0.6 mg/dL (0.4-1.0); MAGNESIUM 1.9 mg/dL (1.7-2.8); TOTAL PROTEIN 6.2 g/dL (6.7-8.2)
[2018-10-14 06:47] LABS: ABNORMAL LYMPHS % (MANUAL) 0 %
[2018-10-14 07:12] LABS: BAND NEUTROPHILS % (MANUAL) 8 %; EOSINOPHILS # (MANUAL) 0.1 10^3/uL (0-0.7); LYMPHOCYTES # (MANUAL) 0.5 10^3/uL (1.5-3.5); LYMPHOCYTES % (MANUAL) 10 %; METAMYELOCYTES % (MANUAL) 1 %; MONOCYTES # (MANUAL) 0.2 10^3/uL (0.0-1.0); MYELOCYTES % (MANUAL) 1 %; NEUTROPHILS # (MANUAL) 4.4 10^3/uL (1.5-6.6); NEUTROPHILS % (MANUAL) 76 %; PLATELET ESTIMATE, MANUAL NORMAL (130-450,000) (NORMAL); RBC MORPHOLOGY (MULTIPLE) NORMAL APPEARANCE (NORMAL)
[2018-10-14] MEDS: FORMOTEROL FUMARATE NEB 20 MCG/2 ML INH SCH ×2 (07:15→19:57)
[2018-10-14] MEDS: BUDESONIDE 0.5 MG/2 ML NEB INH SCH ×2 (07:15→19:57)
[2018-10-14] MEDS: LEVALBUTEROL 1.25 MG/3 ML NEB INH SCH ×3 (07:15→19:57)
[2018-10-14 07:16] LABS: DIFFERENTIAL COMMENT MANUAL DIFFERENTIAL
[2018-10-14] MEDS: diltiaZEM CD 120 MG CAPSULE PO SCH (08:38)
[2018-10-14] MEDS: POLYETHYLENE GLYCOL 3350 17 GM PACKET PO SCH (08:39)
[2018-10-14] MEDS: NS W/20 MEQ KCL 1,000 ML IV SCH (09:54)
[2018-10-14] MEDS: FLUTICASONE NASAL SPRAY NAS SCH (09:55)
[2018-10-14] MEDS: OXYMETAZOLINE NASAL SPRAY NAS SCH ×2 (09:55→21:51)
[2018-10-14] MEDS ORDERED: SPIRONOLACTONE 25 MG TABLET PO SCH (10:29)
--- NOTE | 2018-10-14 10:30 | PROVIDER PROGRESS NOTE ---
Subjective - Prog Note Date Prog Note Date: 10/14/18 Prog Note Time: 10:30 - Subjective Pt reports feeling: Improved Subjective: Trupti admits to a slight improvement since admission and states that her breathing is a little easier, but has had 2 bad exacerbations. Current Medications - Current Medications Current Medications: Active Medications Acetaminophen (Tylenol) 650 mg PO Q4HR PRN PRN Reason: Pain or Fever > 38C (100.4F) Budesonide (Pulmicort) 0.5 mg INH RTBID TERRY Last Admin: 10/15/18 07:35 Dose: 0.5 mg Diltiazem HCl (Cardizem Cd) 120 mg PO DAILY TERRY Last Admin: 10/14/18 08:38 Dose: 120 mg Fluticasone Propionate (Flonase) 2 sprays PAULINE DAILY [facility] Last Admin: 10/14/18 09:55 Dose: 2 sprays Formoterol Fumarate (Perforomist) 20 mcg INH RTBID TERRY Last Admin: 10/15/18 07:35 Dose: 20 mcg Levalbuterol HCl (Xopenex) 1.25 mg INH RTQ4H PRN PRN Reason: SHORTNESS OF AIR/WHEEZING Last Admin: 10/15/18 02:38 Dose: 1.25 mg Levalbuterol HCl (Xopenex) 1.25 mg INH RTTID [facility] Last Admin: 10/15/18 07:35 Dose: 1.25 mg Levofloxacin (Levaquin) 500 mg PO DAILY [facility] Lorazepam (Ativan Inj (Vial)) 0.5 mg IVP Q2H PRN PRN Reason: Anxiety Last Admin: 10/15/18 03:16 Dose: 0.5 mg Methylprednisolone (Solu-Medrol (40mg Vial)) 60 mg IVP TID TERRY Last Admin: 10/15/18 07:00 Dose: 60 mg Morphine Sulfate (Morphine (Carpuject)) 2 mg IVP Q2HR PRN PRN Reason: PAIN Last Admin: 10/13/18 16:51 Dose: 2 mg Morphine Sulfate (Roxanol) 10 mg PO Q2HR PRN PRN Reason: PAIN Last Admin: 10/14/18 01:18 Dose: 10 mg Morphine Sulfate (Roxanol) 5 mg PO Q6HR [facility] Last Admin: 10/15/18 07:00 Dose: 5 mg Oxymetazoline HCl (Afrin) 2 sprays PAULINE BID [facility] Stop: 10/17/18 08:59 Last Admin: 10/14/18 21:51 Dose: 2 sprays Polyethylene Glycol (Miralax) 17 gm PO DAILY [facility] Last Admin: 10/14/18 08:39 Dose: 17 gm Sodium Chloride (Normal Saline Flush 0.9%) 10 ml IVP PRN PRN PRN Reason: NEEDED PER PROVIDER ORDERS Last Admin: 10/15/18 07:01 Dose: 10 ml Sodium Chloride (Normal Saline Flush 0.9%) 10 ml IVP 0100,0900,1700 [facility] Last Admin: 10/15/18 00:06 Dose: 10 ml Albuterol Sulfate [Proair Hfa Inhaler] 2 puffs INH Q4H PRN 08/31/16 Atorvastatin Calcium 20 mg PO QPM 07/18/18 amLODIPine [Norvasc] 5 mg PO DAILY 07/18/18 Albuterol 2.5 mg INH QID 10/13/18 Objective - Vital Signs/Intake & Output Reviewed Vital Signs: Yes Vital Signs: Vital Signs x48h Temp Pulse Pulse Resp BP Pulse Ox 10/14/18 07:30 36.4 C L 74 20 143/67 H 96 10/14/18 07:15 95 20 10/14/18 04:10 36.5 C 80 20 128/62 96 Intake & Output: Intake & Output 10/11/18 10/12/18 10/13/18 10/14/18 23:59 23:59 23:59 23:59 Intake Total 1430 1400 Balance 1430 1400 - Objective General Appearance: positive: Alert, Moderate distress, Anxious, Lethargic Eyes Bilateral: positive: PERRL Eyes: OU Conjunctivae pale ENT: positive: Pharynx nml, Dry mucous membranes Neck: positive: Thyroid nml, No JVD, Trachea midline Respiratory: positive: Chest non-tender, Wheezes, Rhonchi Cardiovascular: positive: Regular rate & rhythm, Systolic murmur, Decreased pulse(s) Peripheral Pulses: 1+ Radial (R), 1+ Radial (L) Abdomen: positive: Non-tender, Nml bowel sounds, Other (rounded, obese, soft) Back: positive: Nml inspection Skin: positive: Color nml, No rash, Warm, Dry Extremities: positive: Non-tender, Full ROM, Pedal edema (chronic BLEs), Joint swelling Neurologic/Psychiatric: positive: Oriented x3, CN's nml (2-12), Motor nml, Weakness, Depressed mood/affect, Other (difficult with full sentences due to impaired breathing) Reflexes: Bicep (R): 3+, Bicep (L): 3+ - Lab Results Fish Bones: 10/15/18 05:38 10/15/18 05:38 Other Labs: Lab Results x24hrs 10/14/18 10/14/18 10/14/18 Range/Units 06:23 06:23 06:23 WBC 5.2 (4.8-10.8) x10^3/uL RBC 3.71 L (4.20-5.40) 10^6/uL Hgb 11.1 L (12.0-16.0) g/dL Hct 34.3 L (37.0-47.0) % MCV 92.4 (81.0-99.0) fL MCH 29.9 (27.0-31.0) pg MCHC 32.3 (32.0-36.0) g/dL RDW 15.1 H (12.0-15.0) % Plt Count 406 (130-450) 10^3/uL MPV 6.2 L (7.9-10.8) fL Neut # (Auto) [employer] Lymph # (Auto) [employer] Storey # (Auto) [employer] Eos # (Auto) [employer] Baso # (Auto) [employer] Absolute Nucleated RBC [employer] Total Counted 100 Band Neuts % (Manual) 8 (0 - 10) % Abnorm Lymph % (Manual) 0 % Metamyelocytes % 1 H ( - 0) % Myelocytes % 1 H ( - 0) % Nucleated RBC % [employer] Neutrophils # (Manual) 4.4 (1.5-6.6) 10^3/uL Lymphocytes # (Manual) 0.5 L (1.5-3.5) 10^3/uL Monocytes # (Manual) 0.2 (0.0-1.0) 10^3/uL Eosinophils # (Manual) 0.1 (0-0.7) 10^3/uL Basophils # (Manual) 0.0 (0-0.1) 10^3/uL Differential Comment MANUAL DIFFERENTIAL Platelet Estimate NORMAL (130-450,000) (NORMAL) RBC Morph Micro Appear NORMAL APPEARANCE (NORMAL) Sodium 138 (135-145) mmol/L Potassium 4.8 (3.5-5.0) mmol/L Chloride 97 L (101-111) mmol/L Carbon Dioxide 35 H (21-32) mmol/L Anion Gap 6.0 (6-13) BUN 12 (6-20) mg/dL Creatinine 0.6 (0.4-1.0) mg/dL Estimated GFR (MDRD) 99 (>89) Glucose 163 H (70-100) mg/dL Lactic Acid 1.1 (0.5-2.2) mmol/L Calcium 8.1 L (8.5-10.3) mg/dL Phosphorus 3.0 (2.5-4.6) mg/dL Magnesium 1.9 (1.7-2.8) mg/dL Total Bilirubin 0.4 (0.2-1.0) mg/dL AST 17 (10-42) IU/L ALT 11 (10-60) IU/L Alkaline Phosphatase 62 (42-121) IU/L Total Protein 6.2 L (6.7-8.2) g/dL Albumin 3.1 L (3.2-5.5) g/dL Globulin 3.1 (2.1-4.2) g/dL Albumin/Globulin Ratio 1.0 (1.0-2.2) ABX Reporting Has patient been on IV antibiotics over the past 48 hours?: Yes Sepsis Event Note (H) - Evaluation Current Stage of Sepsis: Ruled out Assessment/Plan - Problem List (1) COPD exacerbation Impression: The patient admits to a more difficult time breathing that first began a few days ago, but this morning she was trying to make her way to the bathroom, but became profoundly short of breath since she missed a dose of her liquid morphine, so pressed her medial alert button that she wears around her neck. She states that she struggled to get back to her chair and it seemed like for ever before EMS arrived. She states that she has also been coughing up more productive sputum lately that is milky, yellow and thick. She states that she has been more compliant with the use of her home Trilogy since being switched to a different mouth piece. Today, she states that her breathing is improved but has had a few more near crisis episodes where she becomes profoundly decompensated requiring 1:1 nursing or respiratory care. I have increased her steroid dose and ensured that she is on the correct meds. I have also resumed her Spironolactone and stopped IV fluids to prevent fluid overload. Plan: Continue IV steroids, IV antibiotics, expectorants, and respiratory care with nebulizers. (2) Chronic respiratory failure with hypoxia, on home oxygen therapy Impression: The patient has been dependent on home oxygen for the past several years and her usual dose is 4L per nasal cannula. She complains about having too many oxygen tanks as they are cumbersome. She is also prescribed a Trilogy device. Plan: Continue to monitor. (3) Hypertension Impression: The patient is both hypertensive and tachycardic. She was monitored on tele for the first 24 hours, that is now discontinued. She has been continued on diltiazem here. Plan; Continue meds and monitor on tele. Qualifiers: Hypertension type: essential hypertension Qualified Code(s): I10 - Essential (primary) hypertension (4) Chronic sinusitis Impression: The patient routinely has "soreness" in her nostrils and has a long history of sinusitis with complaints of frontal headaches and plugged nasal passages. She has tried Afrin in the past that seems to help. Plan: Afrin for 3 days and daily flonase. Qualifiers: Sinusitis location: frontal Qualified Code(s): J32.1 - Chronic frontal sinusitis (5) Palliative care status Impression: Although the patient cannot make up her mind on becoming a DNR as her prognosis is extremely poor, as per the last discharge summary, she may agree to no intubation. To clarify this, she was asked again about intubation, and states only if I am passed out, otherwise she is way too clausterphobic for this. Plan: Continue full code status. An order for Hospice care has been made. (6) Tachycardia Impression: The patient may be not taking her home diltiazem as prescribed, and is found to have heart rates in the 130's on admission. She has been prescribed Xopenex to prevent increased heart rates and her home diltiazem has been resumed. Plan: Continue on tele, give diltiazem.
[2018-10-14] MEDS: LORazepam 2 MG/ML VIAL IVP PRN ×2 (16:02→18:22)
[2018-10-15] MEDS: SODIUM CHLORIDE FLUSH 0.9% 10 ML SYRINGE IVP SCH ×3 (00:06→18:24)
[2018-10-15] MEDS: MORPHINE SOL 10 MG/0.5 ML SYRINGE PO SCH ×4 (00:06→18:24)
[2018-10-15] MEDS: LEVALBUTEROL 1.25 MG/3 ML NEB INH PRN (02:38)
[2018-10-15] MEDS: LORazepam 2 MG/ML VIAL IVP PRN (03:16)
[2018-10-15] MEDS: SODIUM CHLORIDE FLUSH 0.9% 10 ML SYRINGE IVP PRN ×3 (03:16→22:05)
[2018-10-15 05:54] LABS: BASOPHILS % (AUTO) 0.1 %; LYMPHOCYTES # (AUTO) 0.8 10^3/uL (1.5-3.5); LYMPHOCYTES % (AUTO) 6.5 %; MEAN CORPUSCULAR HEMOGLOBIN 29.5 pg (27.0-31.0); MEAN CORPUSCULAR HGB CONC 32.2 g/dL (32.0-36.0); MEAN CORPUSCULAR VOLUME 91.7 fL (81.0-99.0); MEAN PLATELET VOLUME 6.1 fL (7.9-10.8); MONOCYTES # (AUTO) 0.3 10^3/uL (0.0-1.0); MONOCYTES % (AUTO) 2.5 %; NEUTROPHILS # (AUTO) 11.2 10^3/uL (1.5-6.6); NEUTROPHILS % (AUTO) 90.9 %; PLT - PLATELET COUNT 395 10^3/uL (130-450); RED BLOOD COUNT 3.73 10^6/uL (4.20-5.40); RED CELL DISTRIBUTION WIDTH 15.4 % (12.0-15.0); WHITE BLOOD COUNT 12.3 x10^3/uL (4.8-10.8)
[2018-10-15 06:06] LABS: ALBUMIN 3.2 g/dL (3.2-5.5); BILIRUBIN,TOTAL 0.3 mg/dL (0.2-1.0); CALCIUM 8.5 mg/dL (8.5-10.3); CREATININE 0.6 mg/dL (0.4-1.0); TOTAL PROTEIN 6.4 g/dL (6.7-8.2)
[2018-10-15] MEDS: methylPREDNISolone SUCCINATE 40 MG/ML VIAL IVP SCH (07:00)
[2018-10-15] MEDS: BUDESONIDE 0.5 MG/2 ML NEB INH SCH ×2 (07:35→19:42)
[2018-10-15] MEDS: LEVALBUTEROL 1.25 MG/3 ML NEB INH SCH ×3 (07:35→19:42)
[2018-10-15] MEDS: FORMOTEROL FUMARATE NEB 20 MCG/2 ML INH SCH ×2 (07:35→19:43)
[2018-10-15] MEDS: diltiaZEM CD 120 MG CAPSULE PO SCH (09:46)
[2018-10-15] MEDS: POLYETHYLENE GLYCOL 3350 17 GM PACKET PO SCH (09:47)
[2018-10-15] MEDS: levoFLOXacin 250 MG TABLET PO SCH (09:47)
[2018-10-15] MEDS: OXYMETAZOLINE NASAL SPRAY NAS SCH ×2 (09:48→22:05)
[2018-10-15] MEDS: FLUTICASONE NASAL SPRAY NAS SCH (09:48)
--- NOTE | 2018-10-15 12:38 | PROVIDER PROGRESS NOTE ---
Subjective - Prog Note Date Prog Note Date: 10/15/18 Prog Note Time: 12:37 - Subjective Pt reports feeling: Improved Subjective: Trupti states that she is feeling better and has not had any visitors. She states that her daughter is expected to bring her Trilogy and bedside inhaler maybe tomorrow. She denies any new symptoms, but is beginning to feel a little constipated. She has scheduled oral morphine to help with ease of breathing that is the most likely culprit. Current Medications - Current Medications Current Medications: Active Medications Acetaminophen (Tylenol) 650 mg PO Q4HR PRN PRN Reason: Pain or Fever > 38C (100.4F) Budesonide (Pulmicort) 0.5 mg INH RTBID TERRY Last Admin: 10/15/18 19:42 Dose: 0.5 mg Diltiazem HCl (Cardizem Cd) 120 mg PO DAILY [facility] Last Admin: 10/15/18 09:46 Dose: 120 mg Fluticasone Propionate (Flonase) 2 sprays PAULINE DAILY [facility] Last Admin: 10/15/18 09:48 Dose: 2 sprays Formoterol Fumarate (Perforomist) 20 mcg INH RTBID [facility]ERRY Last Admin: 10/15/18 19:43 Dose: 20 mcg Levalbuterol HCl (Xopenex) 1.25 mg INH RTQ4H PRN PRN Reason: SHORTNESS OF AIR/WHEEZING Last Admin: 10/15/18 02:38 Dose: 1.25 mg Levalbuterol HCl (Xopenex) 1.25 mg INH RTTID [facility] Last Admin: 10/15/18 19:42 Dose: 1.25 mg Levofloxacin (Levaquin) 500 mg PO DAILY [facility] Last Admin: 10/15/18 09:47 Dose: 500 mg Lorazepam (Ativan Inj (Vial)) 0.5 mg IVP Q2H PRN PRN Reason: Anxiety Last Admin: 10/15/18 03:16 Dose: 0.5 mg Methylprednisolone (Solu-Medrol (40mg Vial)) 40 mg IVP BID [facility] Morphine Sulfate (Morphine (Carpuject)) 2 mg IVP Q2HR PRN PRN Reason: PAIN Last Admin: 10/13/18 16:51 Dose: 2 mg Morphine Sulfate (Roxanol) 10 mg PO Q2HR PRN PRN Reason: PAIN Last Admin: 10/14/18 01:18 Dose: 10 mg Morphine Sulfate (Roxanol) 5 mg PO Q6HR [facility] Last Admin: 10/15/18 18:24 Dose: 5 mg Oxymetazoline HCl (Afrin) 2 sprays PAULINE BID [facility] Stop: 10/17/18 08:59 Last Admin: 10/15/18 09:48 Dose: 2 sprays Polyethylene Glycol (Miralax) 17 gm PO DAILY [facility] Last Admin: 10/15/18 09:47 Dose: 17 gm Prednisone (Deltasone) 40 mg PO DAILY [facility] Sodium Chloride (Normal Saline Flush 0.9%) 10 ml IVP PRN PRN PRN Reason: NEEDED PER PROVIDER ORDERS Last Admin: 10/15/18 07:01 Dose: 10 ml Sodium Chloride (Normal Saline Flush 0.9%) 10 ml IVP 0100,0900,1700 [facility] Last Admin: 10/15/18 18:24 Dose: 10 ml Albuterol Sulfate [Proair Hfa Inhaler] 2 puffs INH Q4H PRN 08/31/16 Atorvastatin Calcium 20 mg PO QPM 07/18/18 amLODIPine [Norvasc] 5 mg PO DAILY 07/18/18 Albuterol 2.5 mg INH QID 10/13/18 Objective - Vital Signs/Intake & Output Reviewed Vital Signs: Yes Vital Signs: Vital Signs x48h Temp Pulse Pulse Resp BP Pulse Ox 10/15/18 08:00 36.4 C L 79 20 139/55 H 99 10/15/18 07:39 80 22 Intake & Output: Intake & Output 10/12/18 10/13/18 10/14/18 10/15/18 23:59 23:59 23:59 23:59 Intake Total 1430 2070 472 Balance 1430 2070 472 - Objective General Appearance: positive: Alert, Mild distress, Anxious Eyes Bilateral: positive: PERRL Eyes: OU Conjunctivae pale ENT: positive: Pharynx nml, No signs of dehydration Neck: positive: Thyroid nml, No JVD, Trachea midline Respiratory: positive: Chest non-tender, No respiratory distress, Wheezes, Rhonchi Cardiovascular: positive: Regular rate & rhythm, No gallop, Tachycardia, Systolic murmur Peripheral Pulses: 1+ Radial (R), 1+ Radial (L) Abdomen: positive: Non-tender, Nml bowel sounds, Other (rounded, obese, soft) Back: positive: Nml inspection Skin: positive: Color nml, No rash, Warm, Dry Extremities: positive: Non-tender, Pedal edema (moderate BLE edema-pitting), Joint swelling Neurologic/Psychiatric: positive: Oriented x3, CN's nml (2-12), Motor nml, Se nsation nml, Weakness, Slurred/abnml speech, Depressed mood/affect, Other (tearful at times) Reflexes: Bicep (R): 3+, Bicep (L): 3+ - Lab Results Fish Bones: 10/15/18 05:38 10/15/18 05:38 Other Labs: Lab Results x24hrs 10/15/18 10/15/18 Range/Units 05:38 05:38 WBC 12.3 H (4.8-10.8) x10^3/uL RBC 3.73 L (4.20-5.40) 10^6/uL Hgb 11.0 L (12.0-16.0) g/dL Hct 34.2 L (37.0-47.0) % MCV 91.7 (81.0-99.0) fL MCH 29.5 (27.0-31.0) pg MCHC 32.2 (32.0-36.0) g/dL RDW 15.4 H (12.0-15.0) % Plt Count 395 (130-450) 10^3/uL MPV 6.1 L (7.9-10.8) fL Neut # (Auto) 11.2 H (1.5-6.6) 10^3/uL Lymph # (Auto) 0.8 L (1.5-3.5) 10^3/uL [place] # (Auto) 0.3 (0.0-1.0) 10^3/uL Eos # (Auto) 0.0 (0.0-0.7) 10^3/uL Baso # (Auto) 0.0 (0.0-0.1) 10^3/uL Absolute Nucleated RBC 0.01 x10^3/uL Nucleated RBC % 0.1 /100WBC Sodium 133 L (135-145) mmol/L Potassium 4.4 (3.5-5.0) mmol/L Chloride 95 L (101-111) mmol/L Carbon Dioxide 35 H (21-32) mmol/L Anion Gap 3.0 L (6-13) BUN 17 (6-20) mg/dL Creatinine 0.6 (0.4-1.0) mg/dL Estimated GFR (MDRD) 99 (>89) Glucose 179 H (70-100) mg/dL Calcium 8.5 (8.5-10.3) mg/dL Magnesium 2.0 (1.7-2.8) mg/dL Total Bilirubin 0.3 (0.2-1.0) mg/dL AST 20 (10-42) IU/L ALT 12 (10-60) IU/L Alkaline Phosphatase 60 (42-121) IU/L Total Protein 6.4 L (6.7-8.2) g/dL Albumin 3.2 (3.2-5.5) g/dL Globulin 3.2 (2.1-4.2) g/dL Albumin/Globulin Ratio 1.0 (1.0-2.2) ABX Reporting Has patient been on IV antibiotics over the past 48 hours?: No Sepsis Event Note (H) - Evaluation Current Stage of Sepsis: Ruled out Assessment/Plan - Problem List (1) COPD exacerbation Impression: The patient admits to a more difficult time breathing that first began a few days ago, but this morning she was trying to make her way to the bathroom, but became profoundly short of breath since she missed a dose of her liquid morphine , so pressed her medial alert button that she wears around her neck. She states that she struggled to get back to her chair and it seemed like for ever before EMS arrived. She states that she has also been coughing up more productive sputum lately that is milky, yellow and thick. She states that she has been more compliant with the use of her home Trilogy since being switched to a different mouth piece. Each day she states that her breathing is improved and her more emergent episodes are becoming less. I have adjusted her steroid dose to just BID and in the morning she will start on oral prednisone. She also continues on Spironolactone and her edema is less. Plan: Continue low dose IV steroids, PO antibiotics, expectorants, and respiratory care with nebulizers. (2) Chronic respiratory failure with hypoxia, on home oxygen therapy Impression: The patient has been dependent on home oxygen for the past several years and her usual dose is 4L per nasal cannula. She complains about having too many oxygen tanks as they are cumbersome. She is also prescribed a Trilogy device. She has not been able to get her home Trilogy or bedside inhaler. Plan: Continue to monitor. (3) Hypertension Impression: The patient is both hypertensive and tachycardic. She was monitored on tele for the first 24 hours, that is now discontinued. She has been continued on diltiazem here. Plan; Continue meds. Qualifiers: Hypertension type: essential hypertension Qualified Code(s): I10 - Essential (primary) hypertension (4) Chronic sinusitis Impression: The patient routinely has "soreness" in her nostrils and has a long history of sinusitis with complaints of frontal headaches and plugged nasal passages. She has tried Afrin in the past that seems to help and has been continued here. She states that she is having an easier time with breathing since admission. Plan: Afrin for 3 days and daily flonase. Qualifiers: Sinusitis location: frontal Qualified Code(s): J32.1 - Chronic frontal sinusitis (5) Palliative care status Impression: Although the patient cannot make up her mind on becoming a DNR as her prognosis is extremely poor, as per the last discharge summary, she may agree to no intubation. To clarify this, she was asked again about intubation, and states only if I am passed out, otherwise she is way too clausterphobic for this. Today, she states that she is agreeable to allow hospice to meet her at her house upon discharge. She states that her daughter, Ivette does not drive, so has a hard time helping her. Plan: Continue full code status. An order for Hospice care has been made. (6) Tachycardia Impression: The patient may be not taking her home diltiazem as prescribed, and is found to have heart rates in the 130's on admission. She has been prescribed Xopenex to prevent increased heart rates and her home diltiazem has been resumed. Today she remains 80-100's. Plan: Continue on tele, give diltiazem.
[2018-10-15] MEDS ORDERED: methylPREDNISolone SUCCINATE 40 MG/ML VIAL IVP SCH (21:00)
[2018-10-16] MEDS: MORPHINE SOL 10 MG/0.5 ML SYRINGE PO SCH ×5 (00:38→17:45)
[2018-10-16] MEDS: SODIUM CHLORIDE FLUSH 0.9% 10 ML SYRINGE IVP SCH ×3 (00:39→17:45)
[2018-10-16] MEDS: FORMOTEROL FUMARATE NEB 20 MCG/2 ML INH SCH ×2 (05:17→08:30)
[2018-10-16] MEDS: BUDESONIDE 0.5 MG/2 ML NEB INH SCH ×2 (05:17→08:30)
[2018-10-16] MEDS: LEVALBUTEROL 1.25 MG/3 ML NEB INH SCH ×3 (05:17→15:10)
[2018-10-16 06:08] LABS: BASOPHILS # (AUTO) 0.1 10^3/uL (0.0-0.1); BASOPHILS % (AUTO) 0.9 %; HGB - HEMOGLOBIN 11.7 g/dL (12.0-16.0); LYMPHOCYTES # (AUTO) 0.8 10^3/uL (1.5-3.5); LYMPHOCYTES % (AUTO) 5.9 %; MEAN CORPUSCULAR HEMOGLOBIN 29.4 pg (27.0-31.0); MEAN CORPUSCULAR HGB CONC 32.1 g/dL (32.0-36.0); MEAN CORPUSCULAR VOLUME 91.7 fL (81.0-99.0); MEAN PLATELET VOLUME 6.3 fL (7.9-10.8); MONOCYTES # (AUTO) 0.3 10^3/uL (0.0-1.0); NEUTROPHILS # (AUTO) 12.6 10^3/uL (1.5-6.6); NEUTROPHILS % (AUTO) 91.2 %; PLT - PLATELET COUNT 419 10^3/uL (130-450); RED BLOOD COUNT 3.98 10^6/uL (4.20-5.40); RED CELL DISTRIBUTION WIDTH 15.4 % (12.0-15.0); WHITE BLOOD COUNT 13.8 x10^3/uL (4.8-10.8)
[2018-10-16 06:22] LABS: ALBUMIN 3.3 g/dL (3.2-5.5); ALBUMIN/GLOBULIN RATIO 1.2 (1.0-2.2); BILIRUBIN,TOTAL 0.4 mg/dL (0.2-1.0); CALCIUM 8.4 mg/dL (8.5-10.3); CREATININE 0.7 mg/dL (0.4-1.0); TOTAL PROTEIN 6.1 g/dL (6.7-8.2)
[2018-10-16] MEDS: MORPHINE SOL 10 MG/0.5 ML SYRINGE PO PRN (08:35)
[2018-10-16] MEDS: predniSONE 20 MG TABLET PO SCH (08:36)
[2018-10-16] MEDS: levoFLOXacin 250 MG TABLET PO SCH (08:36)
[2018-10-16] MEDS: diltiaZEM CD 120 MG CAPSULE PO SCH (08:36)
[2018-10-16] MEDS: OXYMETAZOLINE NASAL SPRAY NAS SCH ×2 (08:37→21:57)
[2018-10-16] MEDS: FLUTICASONE NASAL SPRAY NAS SCH (08:37)
[2018-10-16] MEDS: POLYETHYLENE GLYCOL 3350 17 GM PACKET PO SCH (08:38)
[2018-10-16] MEDS: SODIUM CHLORIDE 0.9% 1,000 ML IV SCH ×2 (08:50→21:56)
--- NOTE | 2018-10-16 10:50 | CONSULTATION NOTE ---
Palliative Care Follow Up - Referral Referring Provider: Parker LANE Time of Visit: [id number] Referral setting: Hospitalized patient Referral Reason: Endstage COPD/Lung Mass/Goals of Care - Information Sources Records reviewed: RN notes reviewed, Previous records reviewed History/Review of Systems obtained from: Patient Exam limitations: Clinical condition (patient with severe anxiety) - History of Present Illness Update Brief HPI Update: This is a 68-year old introverted woman, well-known to palliative care, with severe end-stage COPD, pulmonary fibrosis, pulmonary hypertension, being followed by oncology for lung mass. Because of her severe COPD, she is not a candidate for biopsy. She has been receiving serial CTs for monitoring, and actually most recently the 5 areas that are being monitored, to have remained stable and 3 show a decrease in size on 10/02/2018. Patient unfortunately with her end-stage COPD, is very frail, recently hospitalized for a COPD exacerbation 09/16-09/19, and presents again 10/13 with elevated white count, extreme shortness of breath, and escalating anxiety. Patient has continued to deteriorate, with increased shortness of breath, increasing difficulty with activity tolerance, and today presents with fairly almost incapacitating anxiety. Palliative care has been asked to consult regarding goals of care, patient has remained fairly steadfast in not making any decisions regarding CODE STATUS, and now in exploring her referral to hospice. For day barbour to be transitioned to hospice, her goals of care need to be in alignment, and given patient's past expressed wishes and lack of support, this may not be in appropriate referral to follow through on. Patient also has chronic sinusitis, uses trilogy at home, hypertension, and intermittent lower extremity edema. Social History - Living Situation Living arrangement: At home Living Situation: Alone Support System: Patient recently lost her cat, continues to grieve this. She does have LAURA caregiving hours up to 160 hours, currently her caregiver is Reji Stone [phone], who comes weekdays in the mornings and afternoons. [place] staying [place] her, unclear if she is going to be a candidate as her primary caregiver or in agreement with hospice support. She is awaiting a phone call from her, reports she currently does not have transportation, and is unaware of the hospice referral. Her son, which is a significant anxiety for her, is currently in skilled nursing for 2 more months.She has no other friends or community, that are able to provide support either peripherally or personal care. She has designated her sister as her durable power of health sports attorney, that she would not either be a candidate for a primary caregiver. Medications/Allergies - Medications Active Medication List: Active Medications Acetaminophen (Tylenol) 650 mg PO Q4HR PRN PRN Reason: Pain or Fever > 38C (100.4F) Budesonide (Pulmicort) 0.5 mg INH RTBID TERRY Last Admin: 10/16/18 08:30 Dose: 0.5 mg Diltiazem HCl (Cardizem Cd) 120 mg PO DAILY TERRY Last Admin: 10/16/18 08:36 Dose: 120 mg Fluticasone Propionate (Flonase) 2 sprays PAULINE DAILY TERRY Last Admin: 10/16/18 08:37 Dose: 2 sprays Formoterol Fumarate (Perforomist) 20 mcg INH RTBID TERRY Last Admin: 10/16/18 08:30 Dose: 20 mcg Sodium Chloride (Normal Saline 0.9%) 1,000 mls @ 83.333 mls/hr IV .Q12H TERRY Stop: 10/17/18 07:59 Last Admin: 10/16/18 08:50 Dose: 83.333 mls/hr Levalbuterol HCl (Xopenex) 1.25 mg INH RTQ4H PRN PRN Reason: SHORTNESS OF AIR/WHEEZING Last Admin: 10/15/18 02:38 Dose: 1.25 mg Levalbuterol HCl (Xopenex) 1.25 mg INH RTTID TERRY Last Admin: 10/16/18 08:30 Dose: 1.25 mg Levofloxacin (Levaquin) 500 mg PO DAILY TERRY Last Admin: 10/16/18 08:36 Dose: 500 mg Lorazepam (Ativan Inj (Vial)) 0.5 mg IVP Q2H PRN PRN Reason: Anxiety Last Admin: 10/15/18 03:16 Dose: 0.5 mg Morphine Sulfate (Morphine (Carpuject)) 2 mg IVP Q2HR PRN PRN Reason: PAIN Last Admin: 10/13/18 16:51 Dose: 2 mg Morphine Sulfate (Roxanol) 10 mg PO Q2HR PRN PRN Reason: PAIN Last Admin: 10/16/18 08:35 Dose: 10 mg Morphine Sulfate (Roxanol) 5 mg PO Q6HR [facility] Last Admin: 10/16/18 05:56 Dose: 5 mg Oxymetazoline HCl (Afrin) 2 sprays PAULINE BID [facility] Stop: 10/17/18 08:59 Last Admin: 10/16/18 08:37 Dose: 2 sprays Polyethylene Glycol (Miralax) 17 gm PO DAILY [facility] Last Admin: 10/16/18 08:38 Dose: 17 gm Prednisone (Deltasone) 40 mg PO DAILY [facility] Last Admin: 10/16/18 08:36 Dose: 40 mg Sodium Chloride (Normal Saline Flush 0.9%) 10 ml IVP PRN PRN PRN Reason: NEEDED PER PROVIDER ORDERS Last Admin: 10/15/18 22:05 Dose: 10 ml Sodium Chloride (Normal Saline Flush 0.9%) 10 ml IVP 0100,0900,1700 [facility] Last Admin: 10/16/18 08:38 Dose: 10 ml Albuterol Sulfate [Proair Hfa Inhaler] 2 puffs INH Q4H PRN 08/31/16 Atorvastatin Calcium 20 mg PO QPM 07/18/18 amLODIPine [Norvasc] 5 mg PO DAILY 07/18/18 Albuterol 2.5 mg INH QID 10/13/18 - Allergies Allergies/Adverse Reactions: Allergies Allergy/AdvReac Type Severity Reaction Status Date / Time No Known Drug Allergies Allergy Verified 10/13/18 06:41 Review of Systems - Constitutional Constitutional: reports: Fatigue, Fever, Weakness, Poor appetite - Ears, Nose & Throat Ears, Nose & Throat: reports: Nasal congestion, Dry mouth - Cardiovascular Cardiovascular: reports: Chest pain, Exertional dyspnea, Decr. exercise aniya erance, Orthopnea - Respiratory Respiratory: reports: Cough, Sputum production, Wheezing, Orthopnea, SOB at rest, SOB with exertion - Gastrointestinal Gastrointestinal: reports: Constipation, Early satiety. denies: Nausea, Reflux/heartburn - Genitourinary Genitourinary: reports: Other (currently using [place]icking system; discussed given her activity tolerance her wishes to manage at home; declined hamilton catheter, would like commode) - Musculoskeletal Musculoskeletal: reports: Muscle weakness, Other (patient has dangled on side of bed only; presents with fear of breathlessness when discussed up in chair and work on transfers) - Integumentary Integumentary: reports: Dryness - Neurological Neurological: reports: General weakness, Memory problems (mild; does get easily confused) - Psychiatric Psychiatric: reports: Anxiety (reports escalating anxiety; has worsened over last several weeks) - Hematologic/Lymphatic Hematologic/Lymphatic: reports: Anemia - All Other Systems All Other Systems: reports: Reviewed and negative Physical Exam - Vital Signs Vital Signs: Vital Signs x48h Temp Pulse Pulse Resp BP Pulse Ox 10/16/18 08:30 96 20 10/16/18 08:00 37.3 C 99 20 153/63 H 95 10/16/18 05:17 80 18 - Physical Exam General Appearance: positive: Moderate distress, Anxious Eyes Bilateral: positive: Normal inspection ENT: positive: Other (has some cushingnoid appearance since last seen patient) Neck: positive: Trachea midline Cardiovascular: positive: Regular rate & rhythm Respiratory: positive: Diminished throughout (minimal air movement). negative: No respiratory distress (easily distressed with any conversation and/or movement; unclear if respiratory or anxiety) Skin: positive: Dryness, Other (dried scaling on LE; patient previously with swollen feet) Extremities: positive: No pedal edema Neurologic/Psychiatric: positive: Oriented x3, Weakness, Depressed mood/affect, Flat affect Palliative Care - POLST Patient has POLST: No Pain: No pain Tiredness/Fatigue: Severe (7-10) Drowsiness/Sedation: Mild (1-3) Nausea: None Depression: Moderate (4-6) Anxiety: Severe (7-10) Dyspnea: Severe (7-10), Comment (Patient using morphine, reports it is give her some relief, but she still continues quite tight and feeling significantly short of breath with minimal relief.) Anorexia: Moderate (4-6) Constipation: Yes, Opoid induced, Unmanaged Feelings of wellbeing/Perceived Quality of Life: Poor, Worsening Performance Status: Patient at baseline spends most of her time in the recliner, she has been ambulatory to the bathroom, but this has continued to worsen as she has become more short of breath with increased activity intolerance over these last couple of months. She does have a hospital bed in her bedroom, but tends to with her trilogy and concentrator and nebulizer sit in the recliner for most of the time with her feet dependent. Her apartment is quite small, crowded, and difficult to maneuver. We did discuss in the context of current patient functional status, she has been unable to do anything but dangle the bed. Patient wanting to use commode, instead of using the bathroom. We did discuss how this might work as far as re-reviewing rearrangement. She reports her "daughter is working on it". Discussed possibly having hospital bed in the living room, this is where her TV is, central to her equipment. Encouraged patient to push herself, consider sitting in the chair, she is quite frightened given last time she was overwhelmed with her breathlessness when tried to transfer and called rapid response. - Palliative Care Discussion: Patient's understanding of her current illness, she does perceive herself as worsening, see it takes her longer to recover from her exacerbations and/or pneumonia. She reports she does not return back to baseline, and it was just a short while since last hospitalization. She does perceive herself as getting worse, but is really unable to process further the implications of this. We did discuss in the context that she has been referred to hospice if she understood what this meant.She says it sounds "really nice". We did discuss in the context of hospice, goals would be to manage her at home, focus on comfort, and not returning to the hospital. She perceives she can come back to the hospital, discussed at length this is not congruent with the focus or goals for hospice. Discussed also given patient's current level of functioning, she is going to need 24/7 care. Reviewed what was available to her, she reports her daughter has been staying with her, that she is "bossy", but helpful. She has not shared with her daughter she has been referred to hospice so the implications regarding this. Reviewed she will need a primary caregiver if she continues to worsen, that hospice though supportive, and available for problem solving, is intermittent and care delivery. Discussed if she had been talking to her sister Tameka Stock, , She reports she does understand that she is in the hospital, but again has not talked to them about a hospice referral or the implications regarding this. She does not feel she can ask her to be the primary caregiver, as she took care of both her parents until their passing, that she has financial obligations and works. Initiated conversation where patient wants to be for end-of-life care, she feels safe in the hospital, unable to verbalize that a at home would be a goal for her. Reviewed the need for safe discharge plan, patient will need most likely 24 hour care, currently would not be able to toilet herself and/or manage her medications without assistance. Did initiate conversation regarding the [facility] form, reports she has not ever read it, declined to have myself reviewed with her, she wants to talk to her daughter first. This is patient's usual default, did discuss though if were going to further pursue hospice referral, would need to have further conversation regarding this, she verbalized understanding. The agreements we came to, were she was going to talk to her daughter, she is awaiting a call. She will give her daughter my number, to answer any questions or concerns and review the implications and appropriateness of a hospice refe rral. She also gave me permission to talk about the [facility]Y [facility] form with her. We discussed her current D POA with her sister, she has her son Ronnie currently on it, he is currently not available. Actually in review she may not want either 1 of her children making decisions for her, at this point in time her sister still remains the primary decision maker if she is unable to make decisions for herself. Encouraged her to reach out and update her on current status and plan to transition to hospice. Results - Lab Results Lab results reviewed: Yes Fish Bones: 10/16/18 05:38 10/16/18 05:38 Lab and Imaging Results: Lab Results x24hrs 10/16/18 10/16/18 Range/Units 05:38 05:38 WBC 13.8 H (4.8-10.8) x10^3/uL RBC 3.98 L (4.20-5.40) 10^6/uL Hgb 11.7 L (12.0-16.0) g/dL Hct 36.5 L (37.0-47.0) % MCV 91.7 (81.0-99.0) fL MCH 29.4 (27.0-31.0) pg MCHC 32.1 (32.0-36.0) g/dL RDW 15.4 H (12.0-15.0) % Plt Count 419 (130-450) 10^3/uL MPV 6.3 L (7.9-10.8) fL Neut # (Auto) 12.6 H (1.5-6.6) 10^3/uL Lymph # (Auto) 0.8 L (1.5-3.5) 10^3/uL Kaufman # (Auto) 0.3 (0.0-1.0) 10^3/uL Eos # (Auto) 0.0 (0.0-0.7) 10^3/uL Baso # (Auto) 0.1 (0.0-0.1) 10^3/uL Absolute Nucleated RBC 0.02 x10^3/uL Nucleated RBC % 0.1 /100WBC Sodium 136 (135-145) mmol/L Potassium 4.4 (3.5-5.0) mmol/L Chloride 93 L (101-111) mmol/L Carbon Dioxide 38 H (21-32) mmol/L Anion Gap 5.0 L (6-13) BUN 21 H (6-20) mg/dL Creatinine 0.7 (0.4-1.0) mg/dL Estimated GFR (MDRD) 83 L (>89) Glucose 166 H (70-100) mg/dL Calcium 8.4 L (8.5-10.3) mg/dL Total Bilirubin 0.4 (0.2-1.0) mg/dL AST 25 (10-42) IU/L ALT 19 (10-60) IU/L Alkaline Phosphatase 61 (42-121) IU/L Total Protein 6.1 L (6.7-8.2) g/dL Albumin 3.3 (3.2-5.5) g/dL Globulin 2.8 (2.1-4.2) g/dL Albumin/Globulin Ratio 1.2 (1.0-2.2) Impression and Recommendations - Palliative Care Impression: This is a 68-year-old woman with advanced COPD, known lung mass, and ongoing functional decline. Patient remains ambivalent regarding goals of care, this is fairly consistent with her past behaviors and coping. She does appear to have some insight into her seriousness of her illness at this point, she is presenting with escalating anxiety, and significant dyspnea. Palliative care working with patient to discern if hospice is congruent with goals, and also identify a safe discharge plan. Recommendations/Counseling Done: 1. Anxiety. Would recommend initiating sertraline 50 mg given patient's underlying anxiety disorder, patient is using Lorazepam for anxiety with some relief. Patient has difficulty expressing her feelings and/or concerns, and when gets anxious has more difficulty with decision-making. Given the level of her dyspnea compounded by her anxiety, would offer her the Lorazepam along with her morphine or alternate in between scheduled doses of morphine. 2. Dyspnea. Patient currently feels morphine is helpful, though patient still complains of significant distress with any kind of activity and/or conversation. Would continue on the scheduled morphine, as well as offer as needed. Unfor tunately patient's daughter is unable to bring in her trilogy, this has been helpful for her in managing her dyspnea the home setting. She does not have transportation or way to transport machine. 3. Advanced care planning. Patient has been referred to hospice, in long conversation regarding goals of care, unclear if patient appropriate given her anxiety and likelihood of calling 911 to return to the hospital. Patient does not express goals for a at home, there is no identified primary caregiver, and concern regarding safe discharge plan unless patient's activity tolerance and respiratory status improve over the next few days, which is possible but of concern. Patient quite adamant does not want to go to [facility], perceives they had unrealistic goals for her to be able to walk 30 feet. Discussed functional goal needing to meet prior to discharge, would be able to transfer to the commode, as well as manage medications unless primary caregiver identified. In review of hospice with patient, though support would be of help and assistance with her quality of life and ability to manage her symptoms more effectively, and perhaps avoid her acute exacerbations with more supervised care, it would not address her panic regarding her impending decline and , nor her respira tory distress. Patient agreements included talking to her daughter Ivette regarding hospice referral, whether she is going to be available as her primary caregiver, and goals of care regarding CODE STATUS and completion of [facility]. I encouraged her to have her daughter call me when she made contact with patient. Plan is to meet with patient again and continue to develop rapport and develop care plan. Conversation and follow-up with hospice medical historian Dr. Santos. Again expressed concerns regarding patient's goals, need to aligned with hospice, patient does not have to have a KERRY ST to come on hospice, but does need to understand the implications regarding choosing hospice support and limitations of the hospice service. Given the patient's pattern of previous decision making, may be more appropriate to refer on to home health. Patient has a very poor prognosis, and looking at the Josué index, which looks at hospitalized adults age 70 and older, and all outcome 1 year mortality, she scores a total of a 10. Risk calculators cannot predict the future for any one individual but how many people with similar risk factors will live and , but cannot identify who will live and who will . She does have a 1 year mortality risk of greater than 64%. She does present with significant comorbidities of a lung mass, ongoing functional and cognitive decline, poor activity tolerance and high symptom burden. She is appropriate for hospice and meets hospice criteria. Concern is her goals do not aligned at this point in time with hospice, she most likely is at high risk for readmission, as well as a in the acute care setting given her past decision making as well as her severe anxiety and dyspnea. Time Spent: 75 minutes with greater than 50% of this done in counseling regarding goals of care, as well as coordination of care with hospice and hospitalist.
--- NOTE | 2018-10-16 16:56 | PROVIDER PROGRESS NOTE ---
Subjective - Prog Note Date Prog Note Date: 10/16/18 - Subjective Pt reports feeling: Improved Subjective: pt report she will talk with her daughter about if she will go to hospice. She feel SOB as her baseline when she is on exertion. She denies chest pain, fever, chill. Current Medications - Current Medications Current Medications: Active Medications Acetaminophen (Tylenol) 650 mg PO Q4HR PRN PRN Reason: Pain or Fever > 38C (100.4F) Budesonide (Pulmicort) 0.5 mg INH RTBID [facility] Last Admin: 10/17/18 07:44 Dose: 0.5 mg Diltiazem HCl (Cardizem Cd) 120 mg PO DAILY [facility] Last Admin: 10/17/18 08:56 Dose: 120 mg Fluticasone Propionate (Flonase) 2 sprays PAULINE DAILY [facility] Last Admin: 10/17/18 08:57 Dose: 2 sprays Formoterol Fumarate (Perforomist) 20 mcg INH RTBID [facility] Last Admin: 10/17/18 07:44 Dose: 20 mcg Levalbuterol HCl (Xopenex) 1.25 mg INH RTQ4H PRN PRN Reason: SHORTNESS OF AIR/WHEEZING Last Admin: 10/16/18 18:10 Dose: 1.25 mg Levalbuterol HCl (Xopenex) 1.25 mg INH RTTID [facility] Last Admin: 10/17/18 07:44 Dose: 1.25 mg Levofloxacin (Levaquin) 500 mg PO DAILY [facility] Last Admin: 10/17/18 08:56 Dose: 500 mg Lorazepam (Ativan Inj (Vial)) 0.5 mg IVP Q2H PRN PRN Reason: Anxiety Last Admin: 10/17/18 10:53 Dose: 0.5 mg Morphine Sulfate (Morphine (Carpuject)) 2 mg IVP Q2HR PRN PRN Reason: PAIN Last Admin: 10/17/18 08:50 Dose: 2 mg Morphine Sulfate (Roxanol) 10 mg PO Q2HR PRN PRN Reason: PAIN Last Admin: 10/16/18 08:35 Dose: 10 mg Morphine Sulfate (Roxanol) 5 mg PO Q6HR [facility] Last Admin: 10/17/18 12:21 Dose: 5 mg Polyethylene Glycol (Miralax) 17 gm PO DAILY [facility] Last Admin: 10/17/18 08:56 Dose: 17 gm Prednisone (Deltasone) 40 mg PO DAILY [facility] Last Admin: 10/17/18 08:56 Dose: 40 mg Sertraline HCl (Zoloft) 25 mg PO DAILY [facility] Last Admin: 10/17/18 10:53 Dose: 25 mg Sodium Chloride (Normal Saline Flush 0.9%) 10 ml IVP PRN PRN PRN Reason: NEEDED PER PROVIDER ORDERS Last Admin: 10/15/18 22:05 Dose: 10 ml Sodium Chloride (Normal Saline Flush 0.9%) 10 ml IVP 0100,0900,1700 [facility] Last Admin: 10/17/18 10:52 Dose: 20 ml Albuterol Sulfate [Proair Hfa Inhaler] 2 puffs INH Q4H PRN 08/31/16 Atorvastatin Calcium 20 mg PO QPM 07/18/18 amLODIPine [Norvasc] 5 mg PO DAILY 07/18/18 Albuterol 2.5 mg INH QID 10/13/18 Objective - Vital Signs/Intake & Output Reviewed Vital Signs: Yes Vital Signs: Vital Signs x48h Temp Pulse Pulse Resp BP Pulse Ox 10/16/18 15:39 36.9 C 95 20 154/63 H 97 10/16/18 15:10 89 18 Intake & Output: Intake & Output 10/13/18 10/14/18 10/15/18 10/16/18 23:59 23:59 23:59 23:59 Intake Total 1430 2070 1022 706 Output Total 1000 1900 Balance 1430 2070 22 -1194 - Objective General Appearance: positive: No acute distress, Alert. negative: Lethargic Eyes Bilateral: positive: Normal inspection, PERRL. negative: No lid inflammation, Conjunctivae nml ENT: positive: ENT inspection nml, Pharynx nml, No signs of dehydration. negative: Purulent nasal drainage, Pharyngeal erythema, Oral lesions Neck: positive: Nml inspection, Thyroid nml, No JVD, Trachea midline. negative: Thyromegaly, Lymphadenopathy (R), Lymphadenopathy (L), Stiff neck, Swelling/bruising, Tracheal deviation Respiratory: positive: Chest non-tender. negative: Wheezes, Rales Cardiovascular: positive: Regular rate & rhythm, No murmur, No gallop. negative: Irregularly irregular, Extrasystoles, Tachycardia, Bradycardia, JVD present, Systolic murmur, Diastolic murmur Peripheral Pulses: 2+ Radial (R), 2+ Radial (L), 2+ Dorsalis pedis (R), 2+ Dorsalis pedis (L) Abdomen: positive: Non-tender, No organomegaly, Nml bowel sounds, No distention. negative: Tenderness, Guarding, Rebound Back: positive: Nml inspection. negative: CVA tenderness (R), CVA tenderness (L) Skin: positive: Color nml, No rash, Warm, Dry. negative: Cyanosis, Diaphoresis, Pallor Extremities: positive: Non-tender, Full ROM, Nml appearance. negative: Calf tenderness, Joint swelling, Florecita's sign/cords Neurologic/Psychiatric: positive: Oriented x3, Sensation nml. negative: Weakness, Sensory loss, Facial droop, Slurred/abnml speech, Depressed mood/affect - Lab Results Fish Bones: 10/17/18 08:39 10/17/18 08:39 Other Labs: Lab Results x24hrs 10/16/18 10/16/18 Range/Units 05:38 05:38 WBC 13.8 H (4.8-10.8) x10^3/uL RBC 3.98 L (4.20-5.40) 10^6/uL Hgb 11.7 L (12.0-16.0) g/dL Hct 36.5 L (37.0-47.0) % MCV 91.7 (81.0-99.0) fL MCH 29.4 (27.0-31.0) pg MCHC 32.1 (32.0-36.0) g/dL RDW 15.4 H (12.0-15.0) % Plt Count 419 (130-450) 10^3/uL MPV 6.3 L (7.9-10.8) fL Neut # (Auto) 12.6 H (1.5-6.6) 10^3/uL Lymph # (Auto) 0.8 L (1.5-3.5) 10^3/uL [place] # (Auto) 0.3 (0.0-1.0) 10^3/uL Eos # (Auto) 0.0 (0.0-0.7) 10^3/uL Baso # (Auto) 0.1 (0.0-0.1) 10^3/uL Absolute Nucleated RBC 0.02 x10^3/uL Nucleated RBC % 0.1 /100WBC Sodium 136 (135-145) mmol/L Potassium 4.4 (3.5-5.0) mmol/L Chloride 93 L (101-111) mmol/L Carbon Dioxide 38 H (21-32) mmol/L Anion Gap 5.0 L (6-13) BUN 21 H (6-20) mg/dL Creatinine 0.7 (0.4-1.0) mg/dL Estimated GFR (MDRD) 83 L (>89) Glucose 166 H (70-100) mg/dL Calcium 8.4 L (8.5-10.3) mg/dL Total Bilirubin 0.4 (0.2-1.0) mg/dL AST 25 (10-42) IU/L ALT 19 (10-60) IU/L Alkaline Phosphatase 61 (42-121) IU/L Total Protein 6.1 L (6.7-8.2) g/dL Albumin 3.3 (3.2-5.5) g/dL Globulin 2.8 (2.1-4.2) g/dL Albumin/Globulin Ratio 1.2 (1.0-2.2) ABX Reporting Has patient been on IV antibiotics over the past 48 hours?: Yes Sepsis Event Note (H) - Evaluation Current Stage of Sepsis: Ruled out Assessment/Plan - Problem List (1) COPD exacerbation Impression: (1) COPD exacerbation improved, 95% sats on 3 liter of O2 now pt is on oral prednisone, PO antibiotics, expectorants, and respiratory care with nebulizers. (2) Chronic respiratory failure with hypoxia, on home oxygen therapy Impression: chronic, O2 dependent. pt is in the end stage of COPD She is also prescribed a Trilogy device. we called Trilogy provider, they will call pt and review the devise with pt The patient has been dependent on home oxygen for the past several years and her usual dose is 4L per nasal cannula. (3) Hypertension Impression: stable, Continue meds cardizem to control HR (4) Chronic sinusitis Impression: continue Afrin and daily flonase. (5) Palliative care status Palliative care provider will see pt and discuss with pt, will followup pt had hospice referral ordered by Ms. Almodovar. pt refused to have hospice care in the last admission. pt state she will discuss with her daughter to make the decision if have hospice (6) Tachycardia resolved, continue diltiazem. (7) anxiety This is one of reason to cause pt has SOB, prescribed Sertriline for pt
[2018-10-16] MEDS: LEVALBUTEROL 1.25 MG/3 ML NEB INH PRN (18:10)
[2018-10-16] MEDS: LORazepam 2 MG/ML VIAL IVP PRN (19:45)
[2018-10-17] MEDS: SODIUM CHLORIDE FLUSH 0.9% 10 ML SYRINGE IVP SCH ×4 (02:31→16:57)
[2018-10-17] MEDS: MORPHINE SOL 10 MG/0.5 ML SYRINGE PO SCH ×3 (05:52→18:40)
[2018-10-17] MEDS: LEVALBUTEROL 1.25 MG/3 ML NEB INH SCH ×3 (07:44→19:19)
[2018-10-17] MEDS: BUDESONIDE 0.5 MG/2 ML NEB INH SCH ×2 (07:44→19:19)
[2018-10-17] MEDS: FORMOTEROL FUMARATE NEB 20 MCG/2 ML INH SCH ×2 (07:44→19:19)
[2018-10-17] MEDS: MORPHINE 2 MG/ML CARPUJECT IVP PRN ×2 (08:50→16:56)
[2018-10-17] MEDS: POLYETHYLENE GLYCOL 3350 17 GM PACKET PO SCH (08:56)
[2018-10-17] MEDS: predniSONE 20 MG TABLET PO SCH (08:56)
[2018-10-17] MEDS: diltiaZEM CD 120 MG CAPSULE PO SCH (08:56)
[2018-10-17] MEDS: levoFLOXacin 250 MG TABLET PO SCH (08:56)
[2018-10-17] MEDS: FLUTICASONE NASAL SPRAY NAS SCH (08:57)
[2018-10-17 09:02] LABS: BASOPHILS # (AUTO) 0.1 10^3/uL (0.0-0.1); BASOPHILS % (AUTO) 0.4 %; HGB - HEMOGLOBIN 12.4 g/dL (12.0-16.0); LYMPHOCYTES # (AUTO) 1.8 10^3/uL (1.5-3.5); LYMPHOCYTES % (AUTO) 14.3 %; MEAN CORPUSCULAR HEMOGLOBIN 29.3 pg (27.0-31.0); MEAN CORPUSCULAR HGB CONC 32.4 g/dL (32.0-36.0); MEAN CORPUSCULAR VOLUME 90.4 fL (81.0-99.0); MEAN PLATELET VOLUME 6.3 fL (7.9-10.8); MONOCYTES # (AUTO) 0.9 10^3/uL (0.0-1.0); MONOCYTES % (AUTO) 6.9 %; NEUTROPHILS # (AUTO) 10.1 10^3/uL (1.5-6.6); NEUTROPHILS % (AUTO) 78.4 %; PLT - PLATELET COUNT 390 10^3/uL (130-450); RED BLOOD COUNT 4.22 10^6/uL (4.20-5.40); RED CELL DISTRIBUTION WIDTH 15.7 % (12.0-15.0); WHITE BLOOD COUNT 12.9 x10^3/uL (4.8-10.8)
[2018-10-17 09:13] LABS: ALBUMIN 3.3 g/dL (3.2-5.5); ALBUMIN/GLOBULIN RATIO 1.1 (1.0-2.2); BILIRUBIN,TOTAL 0.4 mg/dL (0.2-1.0); CALCIUM 8.2 mg/dL (8.5-10.3); CREATININE 0.5 mg/dL (0.4-1.0); TOTAL PROTEIN 6.3 g/dL (6.7-8.2)
[2018-10-17 09:15] LABS: RBC MORPHOLOGY (MULTIPLE) 2+ ANISOCYTOSIS (NORMAL)
[2018-10-17] MEDS ORDERED: SERTRALINE 25 MG TABLET PO SCH (10:00)
[2018-10-17] MEDS: SERTRALINE 50 MG TABLET PO SCH (10:53)
[2018-10-17] MEDS: LORazepam 2 MG/ML VIAL IVP PRN (10:53)
--- NOTE | 2018-10-17 14:52 | PROVIDER PROGRESS NOTE ---
Subjective - Prog Note Date Prog Note Date: 10/17/18 - Subjective Pt reports feeling: No change Subjective: pt state she refuse to have hospice care, refuse to have SNF/nurse facility care. Pt had home caregiver and care hours covered by her insurance. Pt refused to pay for her extended care hours beside of her insurance covered hours. Ms Nalini Dejesus saw pt, pt's caregiver did not come back tonight, will come back tomorrow to take care of pt. plan to d/c pt on tomorrow. Current Medications - Current Medications Current Medications: Active Medications Acetaminophen (Tylenol) 650 mg PO Q4HR PRN PRN Reason: Pain or Fever > 38C (100.4F) Budesonide (Pulmicort) 0.5 mg INH RTBID [facility] Last Admin: 10/17/18 07:44 Dose: 0.5 mg Diltiazem HCl (Cardizem Cd) 120 mg PO DAILY [facility] Last Admin: 10/17/18 08:56 Dose: 120 mg Fluticasone Propionate (Flonase) 2 sprays PAULINE DAILY [facility] Last Admin: 10/17/18 08:57 Dose: 2 sprays Formoterol Fumarate (Perforomist) 20 mcg INH RTBID [facility] Last Admin: 10/17/18 07:44 Dose: 20 mcg Levalbuterol HCl (Xopenex) 1.25 mg INH RTQ4H PRN PRN Reason: SHORTNESS OF AIR/WHEEZING Last Admin: 10/16/18 18:10 Dose: 1.25 mg Levalbuterol HCl (Xopenex) 1.25 mg INH RTTID [facility] Last Admin: 10/17/18 14:27 Dose: 1.25 mg Levofloxacin (Levaquin) 500 mg PO DAILY [facility] Last Admin: 10/17/18 08:56 Dose: 500 mg Lorazepam (Ativan Inj (Vial)) 0.5 mg IVP Q2H PRN PRN Reason: Anxiety Last Admin: 10/17/18 10:53 Dose: 0.5 mg Morphine Sulfate (Morphine (Carpuject)) 2 mg IVP Q2HR PRN PRN Reason: PAIN Last Admin: 10/17/18 08:50 Dose: 2 mg Morphine Sulfate (Roxanol) 10 mg PO Q2HR PRN PRN Reason: PAIN Last Admin: 10/16/18 08:35 Dose: 10 mg Morphine Sulfate (Roxanol) 5 mg PO Q6HR [facility] Last Admin: 10/17/18 12:21 Dose: 5 mg Polyethylene Glycol (Miralax) 17 gm PO DAILY [facility] Last Admin: 10/17/18 08:56 Dose: 17 gm Prednisone (Deltasone) 40 mg PO DAILY [facility] Last Admin: 10/17/18 08:56 Dose: 40 mg Sertraline HCl (Zoloft) 25 mg PO DAILY [facility] Last Admin: 10/17/18 10:53 Dose: 25 mg Sodium Chloride (Normal Saline Flush 0.9%) 10 ml IVP PRN PRN PRN Reason: NEEDED PER PROVIDER ORDERS Last Admin: 10/15/18 22:05 Dose: 10 ml Sodium Chloride (Normal Saline Flush 0.9%) 10 ml IVP 0100,0900,1700 [facility] Last Admin: 10/17/18 10:52 Dose: 20 ml Albuterol Sulfate [Proair Hfa Inhaler] 2 puffs INH Q4H PRN 08/31/16 Atorvastatin Calcium 20 mg PO QPM 07/18/18 amLODIPine [Norvasc] 5 mg PO DAILY 07/18/18 Albuterol 2.5 mg INH QID 10/13/18 Objective - Vital Signs/Intake & Output Reviewed Vital Signs: Yes Vital Signs: Vital Signs x48h Temp Pulse Pulse Resp BP Pulse Ox 10/17/18 14:28 80 18 10/17/18 07:57 36.4 C L 82 20 157/66 H 96 10/17/18 07:44 76 18 Intake & Output: Intake & Output 10/14/18 10/15/18 10/16/18 10/17/18 23:59 23:59 23:59 23:59 Intake Total 0 1022 2296 2150 Output Total 1000 2850 1600 Balance 2070 22 -554 550 - Objective General Appearance: positive: No acute distress, Alert. negative: Lethargic Eyes Bilateral: positive: Normal inspection, PERRL, No lid inflammation, Conjunctivae nml ENT: positive: ENT inspection nml, Pharynx nml, No signs of dehydration. negative: Purulent nasal drainage, Pharyngeal erythema, Oral lesions Neck: positive: Nml inspection, Thyroid nml, No JVD, Trachea midline. negative: Thyromegaly, Lymphadenopathy (R), Lymphadenopathy (L), Stiff neck, Swelling/bruising, Tracheal deviation Respiratory: positive: Chest non-tender. negative: Wheezes, Rales Cardiovascular: positive: Regular rate & rhythm, No murmur, No gallop. negative: Irregularly irregular, Extrasystoles, Tachycardia, Bradycardia, JVD present, Systolic murmur, Diastolic murmur Peripheral Pulses: 2+ Radial (R), 2+ Radial (L), 2+ Dorsalis pedis (R), 2+ Dorsalis pedis (L) Abdomen: positive: Non-tender, No organomegaly, Nml bowel sounds, No distention. negative: Tenderness, Guarding, Rebound Back: positive: Nml inspection. negative: CVA tenderness (R), CVA tenderness (L) Skin: positive: Color nml, No rash, Warm, Dry. negative: Cyanosis, Diaphoresis, Pallor Extremities: positive: Non-tender, Nml appearance. negative: Calf tenderness, Joint swelling, Florecita's sign/cords Neurologic/Psychiatric: positive: Oriented x3, Sensation nml. negative: Weakness, Sensory loss, Facial droop, Slurred/abnml speech, Depressed mood/affect - Lab Results Fish Bones: 10/17/18 08:39 10/17/18 08:39 Other Labs: Lab Results x24hrs 10/17/18 10/17/18 Range/Units 08:39 08:39 WBC 12.9 H (4.8-10.8) x10^3/uL RBC 4.22 (4.20-5.40) 10^6/uL Hgb 12.4 (12.0-16.0) g/dL Hct 38.1 (37.0-47.0) % MCV 90.4 (81.0-99.0) fL MCH 29.3 (27.0-31.0) pg MCHC 32.4 (32.0-36.0) g/dL RDW 15.7 H (12.0-15.0) % Plt Count 390 (130-450) 10^3/uL MPV 6.3 L (7.9-10.8) fL Neut # (Auto) 10.1 H (1.5-6.6) 10^3/uL Lymph # (Auto) 1.8 (1.5-3.5) 10^3/uL Cross # (Auto) 0.9 (0.0-1.0) 10^3/uL Eos # (Auto) 0.0 (0.0-0.7) 10^3/uL Baso # (Auto) 0.1 (0.0-0.1) 10^3/uL Absolute Nucleated RBC 0.01 x10^3/uL Nucleated RBC % 0.1 /100WBC Manual Slide Review Indicated RBC Morph Micro Appear 2+ ANISOCYTOSIS (NORMAL) Sodium 138 (135-145) mmol/L Potassium 4.0 (3.5-5.0) mmol/L Chloride 96 L (101-111) mmol/L Carbon Dioxide 37 H (21-32) mmol/L Anion Gap 5.0 L (6-13) BUN 18 (6-20) mg/dL Creatinine 0.5 (0.4-1.0) mg/dL Estimated GFR (MDRD) 123 (>89) Glucose 153 H (70-100) mg/dL Calcium 8.2 L (8.5-10.3) mg/dL Total Bilirubin 0.4 (0.2-1.0) mg/dL AST 53 H (10-42) IU/L ALT 85 H (10-60) IU/L Alkaline Phosphatase 63 (42-121) IU/L Total Protein 6.3 L (6.7-8.2) g/dL Albumin 3.3 (3.2-5.5) g/dL Globulin 3.0 (2.1-4.2) g/dL Albumin/Globulin Ratio 1.1 (1.0-2.2) ABX Reporting Has patient been on IV antibiotics over the past 48 hours?: Yes Sepsis Event Note (H) - Evaluation Current Stage of Sepsis: Ruled out Assessment/Plan - Problem List (1) COPD exacerbation Impression: 10/17 continue improved. 96% sats on 3 liter of O2 continue oral prednisone, PO antibiotics, expectorants, and nebulizers improved, 95% sats on 3 liter of O2 now pt is on oral prednisone, PO antibiotics, expectorants, and respiratory care with nebulizers. (2) Chronic respiratory failure with hypoxia, on home oxygen therapy Impression: Improved, 96% sats on 3 liter of O2 10/17 continue O2 supplement as needed chronic, O2 dependent. pt is in the end stage of COPD She is also prescribed a Trilogy device. we called Trilogy provider, they will call pt and review the devise with pt The patient has been dependent on home oxygen for the past several years and her usual dose is 4L per nasal cannula. (3) Hypertension Impression: stable, Continue meds cardizem to control HR (4) Chronic sinusitis Impression: continue Afrin and daily flonase. (5) Palliative care status continue palliative care, followup Palliative care provider will see pt and discuss with pt, will followup pt had hospice referral ordered by Ms. Almodovar. pt refused to have hospice care in the last admission. pt state she will discuss with her daughter to make the decision if have hospice (6) Tachycardia resolved, continue diltiazem. (7) anxiety This is one of reason to cause pt has SOB, prescribed Sertriline for pt
--- NOTE | 2018-10-17 17:54 | CONSULTATION NOTE ---
Palliative Care Follow Up - Referral Referring Provider: Parker LANE Time of Visit: ;[phone] Referral setting: Hospitalized patient Referral Reason: Advanced COPD/Goals of Care - Information Sources Records reviewed: RN notes reviewed, Previous records reviewed History/Review of Systems obtained from: Patient Exam limitations: Clinical condition - History of Present Illness Update Brief HPI Update: This is a 68-year old introverted woman, well-known to palliative care, with severe end-stage COPD, pulmonary fibrosis, pulmonary hypertension, being followed by oncology for lung mass. Because of her severe COPD, she is not a candidate for biopsy. She is receiving serial CTs for man[place]. This is her second hospitalization, with last one about a month ago, for COPD exacerbation. Patient does at baseline have severe extreme shortness of breath, has newly been on trilogy at home, uses morphine sulfate for management of her dyspnea, but has been having ongoing functional decline as well as more debilitating dyspnea at baseline. She has also developed almost incapacitating anxiety over the last several weeks to months, and this has peaked here at this current hospitalization. There has been much discussion regarding goals of care, patient remains somewhat ambiguous, and resistant to making any definitive plans. A hospice referral was made for discharge, but given patient's goals are not in alignment in the context that she still would push her 911 paramedics button and except hospitalization, as well as not made a decision about where she wants her end of life event this is now been transitioned to home health recommendations for support. Patient remains quite fragile, has poor activity tolerance, but has improved enough today to be able to transition home tomorrow. Though she is not back at her baseline, remains quite anxious, and concern for social support as well as safety at home. Social History - Living Situation Living arrangement: At home Living Situation: Alone Support System: Have been trying to connect with daughter Ivette, she has a phone, but appears is unable to call her. She does text and keep in contact with her mother, I have asked them to have her call me, but there seems to be some either resistance or lack of communication. She does not have a car nor drive, but patient has had her staying with her over the last several days prior to admit. She does feel like she would be willing to stay with her again, but does not know if she will be able to make contact today. Patient does have jonathan worker Reji Stone [phone], did make contact with her, she is willing to come pick her up either this evening or tomorrow morning. This is an acceptable plan to the patient. Medications/Allergies - Medications Active Medication List: Active Medications Acetaminophen (Tylenol) 650 mg PO Q4HR PRN PRN Reason: Pain or Fever > 38C (100.4F) Budesonide (Pulmicort) 0.5 mg INH RTBID TERRY Last Admin: 10/17/18 07:44 Dose: 0.5 mg Diltiazem HCl (Cardizem Cd) 120 mg PO DAILY [facility] Last Admin: 10/17/18 08:56 Dose: 120 mg Fluticasone Propionate (Flonase) 2 sprays PAULINE DAILY [facility] Last Admin: 10/17/18 08:57 Dose: 2 sprays Formoterol Fumarate (Perforomist) 20 mcg INH RTBID TERRY Last Admin: 10/17/18 07:44 Dose: 20 mcg Levalbuterol HCl (Xopenex) 1.25 mg INH RTQ4H PRN PRN Reason: SHORTNESS OF AIR/WHEEZING Last Admin: 10/16/18 18:10 Dose: 1.25 mg Levalbuterol HCl (Xopenex) 1.25 mg INH RTTID [facility] Last Admin: 10/17/18 14:27 Dose: 1.25 mg Levofloxacin (Levaquin) 500 mg PO DAILY [facility] Last Admin: 10/17/18 08:56 Dose: 500 mg Lorazepam (Ativan Inj (Vial)) 0.5 mg IVP Q2H PRN PRN Reason: Anxiety Last Admin: 10/17/18 10:53 Dose: 0.5 mg Morphine Sulfate (Morphine (Carpuject)) 2 mg IVP Q2HR PRN PRN Reason: PAIN Last Admin: 10/17/18 16:56 Dose: 2 mg Morphine Sulfate (Roxanol) 10 mg PO Q2HR PRN PRN Reason: PAIN Last Admin: 10/16/18 08:35 Dose: 10 mg Morphine Sulfate (Roxanol) 5 mg PO Q6HR [facility] Last Admin: 10/17/18 12:21 Dose: 5 mg Polyethylene Glycol (Miralax) 17 gm PO DAILY [facility] Last Admin: 10/17/18 08:56 Dose: 17 gm Prednisone (Deltasone) 40 mg PO DAILY [facility] Last Admin: 10/17/18 08:56 Dose: 40 mg Sertraline HCl (Zoloft) 25 mg PO DAILY [facility] Last Admin: 10/17/18 10:53 Dose: 25 mg Sodium Chloride (Normal Saline Flush 0.9%) 10 ml IVP PRN PRN PRN Reason: NEEDED PER PROVIDER ORDERS Last Admin: 10/15/18 22:05 Dose: 10 ml Sodium Chloride (Normal Saline Flush 0.9%) 10 ml IVP 0100,0900,1700 [facility] Last Admin: 10/17/18 16:57 Dose: 10 ml Albuterol Sulfate [Proair Hfa Inhaler] 2 puffs INH Q4H PRN 08/31/16 Atorvastatin Calcium 20 mg PO QPM 07/18/18 amLODIPine [Norvasc] 5 mg PO DAILY 07/18/18 Albuterol 2.5 mg INH QID 10/13/18 - Allergies Allergies/Adverse Reactions: Allergies Allergy/AdvReac Type Severity Reaction Status Date / Time No Known Drug Allergies Allergy Verified 10/13/18 06:41 Review of Systems - Constitutional Constitutional: reports: Fatigue. denies: Fever, Chills - Ears, Nose & Throat Ears, Nose & Throat: reports: Nasal congestion - Cardiovascular Cardiovascular: reports: Chest pain (tightness with breathing;), Exertional dyspnea, Decr. exercise tolerance, Orthopnea - Respiratory Respiratory: reports: Cough (nonproducative), SOB at rest (escalates with anxiety and talking), SOB with exertion - Gastrointestinal Gastrointestinal: reports: Early satiety. denies: Constipation (bowels moved today), Nausea - Genitourinary Genitourinary: reports: Other (using wick system) - Musculoskeletal Musculoskeletal: reports: Muscle weakness, Assistive devices (using walker to transfer to commode;) - Integumentary Integumentary: reports: Dryness - Neurological Neurological: reports: General weakness - Psychiatric Psychiatric: reports: Depression, Anxiety - All Other Systems All Other Systems: reports: Reviewed and negative Physical Exam - Vital Signs Vital Signs: Vital Signs x48h Temp Pulse Pulse Resp BP Pulse Ox 10/17/18 15:47 37.2 C 93 20 152/75 H 90 L 10/17/18 14:28 80 18 - Physical Exam General Appearance: positive: Moderate distress, Anxious Eyes Bilateral: positive: Normal inspection ENT: positive: No signs of dehydration Neck: positive: No JVD, Trachea midline Cardiovascular: positive: Regular rate & rhythm Respiratory: positive: Diminished throughout Abdomen: positive: Soft Skin: positive: Pallor, Dryness Extremities: positive: No pedal edema (trace) Neurologic/Psychiatric: positive: Oriented x3, Weakness, Depressed mood/affect, Flat affect Palliative Care - POLST Patient has POLST: No Pain: No pain Tiredness/Fatigue: Severe (7-10) Drowsiness/Sedation: Mild (1-3) Nausea: None Depression: Moderate (4-6) Anxiety: Severe (7-10) Dyspnea: Severe (7-10) Anorexia: Mild (1-3) Sleep: Variable sleep pattern Constipation: Yes, Managed Feelings of wellbeing/Perceived Quality of Life: Poor, Worsening Performance Status: Patient reports she is still tolerates actively poorly, gets quite short of breath and anxious. Spoke with aide who has been assisting her, she was able to do a pivot transfer with a walker to the commode. Patient is willing to accept commode, will need her apartment rearranged which is quite small and crowded. Patient at baseline is fairly sedentary, only walks maybe 10 feet to the bathroom in her apartment, she does have a wheelchair for transport. - Palliative Care Discussion: Patient's usual pattern of communication, and decision making, is to defer, She is unable or unwilling to engage in conversation with the barriers are. She often puts it off "as she needs to speak to her children", in this case her daughter. Though when offered to facilitate this conversation or called directly she declines. We did review again regarding patient's goals, at this point though she would like to stay out of the hospital, and focus on comfort, she has not identified she would like to have a at home, and still feels quite safe in the hospital. Counseling provided regarding hospice, hospice goals, and the hospice benefit and where they do and do not align with patient's expressed goals at this point, will cancel hospice referral. Discussed the role of home health, she is acceptable to have a visiting nurse come and assist her with medication management and evaluation of her respiratory status, her pattern has been to access emergency assistance at the point that she is in distress, hopefully with closer monitoring will be more successful in keeping her symptoms controlled. Palliative care does visit intermittently, patient has never contacted practitioner for exacerbation of symptoms, often just pushes the button and called 911. Results - Lab Results Lab results reviewed: Yes Fish Bones: 10/17/18 08:39 10/17/18 08:39 Lab and Imaging Results: Lab Results x24hrs 10/17/18 10/17/18 Range/Units 08:39 08:39 WBC 12.9 H (4.8-10.8) x10^3/uL RBC 4.22 (4.20-5.40) 10^6/uL Hgb 12.4 (12.0-16.0) g/dL Hct 38.1 (37.0-47.0) % MCV 90.4 (81.0-99.0) fL MCH 29.3 (27.0-31.0) pg MCHC 32.4 (32.0-36.0) g/dL RDW 15.7 H (12.0-15.0) % Plt Count 390 (130-450) 10^3/uL MPV 6.3 L (7.9-10.8) fL Neut # (Auto) 10.1 H (1.5-6.6) 10^3/uL Lymph # (Auto) 1.8 (1.5-3.5) 10^3/uL [place] # (Auto) 0.9 (0.0-1.0) 10^3/uL Eos # (Auto) 0.0 (0.0-0.7) 10^3/uL Baso # (Auto) 0.1 (0.0-0.1) 10^3/uL Absolute Nucleated RBC 0.01 x10^3/uL Nucleated RBC % 0.1 /100WBC Manual Slide Review Indicated RBC Morph Micro Appear 2+ ANISOCYTOSIS (NORMAL) Sodium 138 (135-145) mmol/L Potassium 4.0 (3.5-5.0) mmol/L Chloride 96 L (101-111) mmol/L Carbon Dioxide 37 H (21-32) mmol/L Anion Gap 5.0 L (6-13) BUN 18 (6-20) mg/dL Creatinine 0.5 (0.4-1.0) mg/dL Estimated GFR (MDRD) 123 (>89) Glucose 153 H (70-100) mg/dL Calcium 8.2 L (8.5-10.3) mg/dL Total Bilirubin 0.4 (0.2-1.0) mg/dL AST 53 H (10-42) IU/L ALT 85 H (10-60) IU/L Alkaline Phosphatase 63 (42-121) IU/L Total Protein 6.3 L (6.7-8.2) g/dL Albumin 3.3 (3.2-5.5) g/dL Globulin 3.0 (2.1-4.2) g/dL Albumin/Globulin Ratio 1.1 (1.0-2.2) Impression and Recommendations - Palliative Care Impression: This is a 68-year-old woman with advanced COPD, pulmonary hypertension, known lung mass, and ongoing functional decline. Patient continues to remain somewhat ambivalent regarding goals of care, this is fairly consistent with her past behaviors and coping. She has had escalating anxiety, and her dyspnea though at baseline is debilitating, it remains quite severe. Patient will transition home, with home health nursing support and palliative care follow-up. Recommendations/Counseling Done: 1. COPD exacerbation. We will have hospitalist order home health nursing, patient poor at identifying early warning signs, presents with knowledge deficit. Will benefit from closer monitoring, patient also with poor medication adherence, have a multiple palliative care visits needed to straighten out medications, often has difficulty following through on reordering, and would benefit from oversight and Mediset's. Patient on trilogy, hopefully this will improve her respiratory status on discharge home, her daughter was unable to bring it in. Boiling Tub Operator has been contacted, and will follow up and adjust settings accordingly as well. Patient continues to benefit very use of morphine for dyspnea, may benefit from initiating long-acting morphine if continues frequent use after exacerbation resolves. Patient with severe activity intolerance, worse than baseline, will make arrangements with [employer] for commode delivery this afternoon. Has been on "wick" urinary catheter to provide energy conservation and due to severe dyspnea with activity. 2. Lung mass. Patient with recent CT scan, will continue to receive serial CTs for monitoring. Most likely adding to her respiratory demise. 3. Anxiety. Patient has been initiated on sertraline 25 mg, would recommend titrating up on discharge for effectiveness. Patient also using Lorazepam for anxiety with benefit. Review and monitor use in home setting. 4. Advanced care planning. Would recommend follow-up with daughter Elva, If/when patient transitions to hospice will need primary caregiver given patient's fragile status. It does appear this may be most likely a poor plan, would recommend start preplanning for placement for end of life. Continue to evaluate patient, work with her goals of care as allowed, patient does recognize the seriousness of her illness and her decline.Palliative care to follow-up on Monday with home visit for transition. [id number]. It is a taxing and considerable effort for the patient to leave the home secondary to severe dyspnea limiting her ability to ambulate greater than 2-3 feet, lower extremity weakness and deconditioning as well as poor activity tolerance secondary to COPD. Patient requires home health nursing for ongoing respiratory assessment, teaching regarding signs and symptoms of exacerbation and disease process medication teaching and monitoring, as well as assist with symptom management of dyspnea, anxiety, and depression. Patient benefit from bath aide for bathing, nail care, and skin care. Time Spent: 60 minutes with greater 50% of this done in counseling and coordination of care, definition of goals, anticipatory guidance as well as [id number] for home health, and contact with hospice, and nephrology social worker
[2018-10-17] MEDS: LEVALBUTEROL 1.25 MG/3 ML NEB INH PRN (23:17)
[2018-10-18] MEDS: MORPHINE SOL 10 MG/0.5 ML SYRINGE PO SCH ×3 (00:46→12:50)
[2018-10-18] MEDS: SODIUM CHLORIDE FLUSH 0.9% 10 ML SYRINGE IVP SCH ×2 (00:47→09:26)
[2018-10-18 05:09] LABS: EOSINOPHILS % (AUTO) 0.1 %; WHITE BLOOD COUNT 9.8 x10^3/uL (4.8-10.8)
[2018-10-18 05:28] LABS: BASOPHILS % (AUTO) 0.3 %; HGB - HEMOGLOBIN 11.2 g/dL (12.0-16.0); LYMPHOCYTES % (AUTO) 21.5 %; MEAN CORPUSCULAR HEMOGLOBIN 30.7 pg (27.0-31.0); MEAN CORPUSCULAR HGB CONC 33.7 g/dL (32.0-36.0); MEAN CORPUSCULAR VOLUME 90.9 fL (81.0-99.0); MEAN PLATELET VOLUME 6.4 fL (7.9-10.8); MONOCYTES % (AUTO) 11.6 %; NEUTROPHILS % (AUTO) 66.5 %; PLT - PLATELET COUNT 328 10^3/uL (130-450); RED BLOOD COUNT 3.66 10^6/uL (4.20-5.40); RED CELL DISTRIBUTION WIDTH 15.3 % (12.0-15.0)
[2018-10-18 05:32] LABS: ABNORMAL LYMPHS % (MANUAL) 0 %
[2018-10-18 05:44] LABS: ALBUMIN 2.9 g/dL (3.2-5.5); ALBUMIN/GLOBULIN RATIO 1.1 (1.0-2.2); BILIRUBIN,TOTAL 0.6 mg/dL (0.2-1.0); CREATININE 0.5 mg/dL (0.4-1.0); TOTAL PROTEIN 5.5 g/dL (6.7-8.2)
[2018-10-18 06:27] LABS: BAND NEUTROPHILS % (MANUAL) 3 %; DIFFERENTIAL COMMENT MANUAL DIFFERENTIAL; EOSINOPHILS # (MANUAL) 0.1 10^3/uL (0-0.7); LYMPHOCYTES # (MANUAL) 1.1 10^3/uL (1.5-3.5); LYMPHOCYTES % (MANUAL) 11 %; METAMYELOCYTES % (MANUAL) 7 %; MONOCYTES # (MANUAL) 1.7 10^3/uL (0.0-1.0); MYELOCYTES % (MANUAL) 7 %; NEUTROPHILS # (MANUAL) 5.6 10^3/uL (1.5-6.6); NEUTROPHILS % (MANUAL) 54 %; PLATELET ESTIMATE, MANUAL NORMAL (130-450,000) (NORMAL); RBC MORPHOLOGY (MULTIPLE) NORMAL APPEARANCE (NORMAL)
[2018-10-18] MEDS: BUDESONIDE 0.5 MG/2 ML NEB INH SCH (07:22)
[2018-10-18] MEDS: FORMOTEROL FUMARATE NEB 20 MCG/2 ML INH SCH (07:23)
[2018-10-18] MEDS: LEVALBUTEROL 1.25 MG/3 ML NEB INH SCH ×2 (07:23→13:25)
[2018-10-18 07:52] VITALS: BP 151/72
[2018-10-18] MEDS ORDERED: SODIUM CHLORIDE 0.9% 1,000 ML IV SCH (08:00)
[2018-10-18] MEDS: MORPHINE 2 MG/ML CARPUJECT IVP PRN ×2 (08:54→11:10)
[2018-10-18] MEDS: levoFLOXacin 250 MG TABLET PO SCH (09:24)
[2018-10-18] MEDS: diltiaZEM CD 120 MG CAPSULE PO SCH (09:25)
[2018-10-18] MEDS: predniSONE 20 MG TABLET PO SCH (09:25)
[2018-10-18] MEDS: SERTRALINE 50 MG TABLET PO SCH (09:25)
[2018-10-18] MEDS: FLUTICASONE NASAL SPRAY NAS SCH (09:26)
[2018-10-18] MEDS: POLYETHYLENE GLYCOL 3350 17 GM PACKET PO SCH (09:26)
[2018-10-18] MEDS: LEVALBUTEROL 1.25 MG/3 ML NEB INH PRN (11:13)
--- NOTE | 2018-10-18 12:25 | Discharge Plan ---
Discharge Plan Disposition: Home Health Service Condition: Poor Prescriptions: levoFLOXacin [Levaquin] 500 mg PO DAILY #5 tablet Diet: Regular Activity Restrictions: Activity as Tolerated Shower Restrictions: No (fall precaution) Instruction Topics: Sertraline tablets, Morphine immediate release tablets, Levofloxacin tablets, Prednisone tablets Additional Instructions or Follow Up instructions: You may followup your PCP in one week, followup your palliative care provider on tomorrow, follow up your pipeline maintenance supervisor and oncologist as out-pt. You were admitted for COPD exacerbation. after treated in hospital, you are stable as your baseline. You decline to be d/c to nurse facility/SNF or advance hospice care. You are arranged to have home health [facility] and home health RN. You are prescribed new medications Morphine ER, Prednisone and Zoloft for you, and discussed with you about these medication effects and side effects. All your question were answered. Should your symptoms return or worsen, you may present ER or call 911 for help. Follow-Up Care: Home Health - RN No Smoking: If you smoke, Please STOP! Call for help. Follow-up with: Kirti Phillips ARNP [Primary Care Provider] -
--- NOTE | 2018-10-18 12:53 | DISCHARGE SUMMARY ---
Discharge Summary Discharge Date: 10/18/18 Discharging Provider: ANAYA Primary Care Provider: Kirti Meredith Condition at Discharge: Poor Discharge Disposition: Home Health Service Discharge Facility Name: home - DIAGNOSES Admission Diagnoses: (1) COPD exacerbation (2) Chronic respiratory failure with hypoxia, on home oxygen therapy (3) Hypertension (4) Chronic sinusitis (5) Palliative care status (6) Tachycardia Discharge Diagnoses with Status of Each Condition: (1) COPD exacerbation stable, return pt's baseline, 95% sats on 3 liter of O2. pt is O2-dependent at home with 4 liter of O2. continue home regimen and followup PCP and her surgical supervisor as out-pt. pt is prescribed Morphine ER for her breath. Wane off Steroid with Prednisone (2) Chronic respiratory failure with hypoxia, on home oxygen therapy stable, pt is prescribed Morphine ER for her breath (3) Hypertension stable (4) Chronic sinusitis stable, pt is prescribe Levequin to finish the antibiotics course. (5) Palliative care status Again, pt could not make her own decision for hospice care. I discussed with her about the benefit and rules, risk of hospice care. Although she told she will re quest to have hospice at morning, but she changed her mind again, she does not want hospice care at this time. (6) Tachycardia resolved (7) anxiety pt present anxiety in the hospital course. pt is prescribed Sertraline for her anxiety I discussed with pt about all medication's effects and side effect, and answer all questions. - HPI History of Present Illness: Trupti Pruett is a 68-year old female with a past medical history of end stage COPD, pulmonary fibrosis, pulmonary hypertension, lung cancer, pneumonia, anxiety, chronic sinusitis, and osteoarthritis. She pushed her life alert this morning from home because she could was not able to speak from being so short of breath. She has a pulse ox at home, but states that she did not even have the energy to check it. She has been on her usual 4L nasal cannula. The patient was brought to the ED via EMS. On exam, she reports that she continues to cough up milky yellow, thick sputum. She is under the care of Palliative care and oncology. She states that for the past 2 days she has had increased productive cough, increased fatigue, fever, chills, and has been just sleeping in her recliner as she is too weak to make it into bed at night. She denies chest pain, rashes, sore throat, hearing loss, increased dizziness, nausea, vomiting, or hemoptysis. Labs show a mildly elevated WBC count of 13.6, although she has been on steroids, a low hematocrit of 36.6, an elevated platelet count of 506, an elevated CO2 level of 35 (normal for her), an elevated glucose of 124, a normal troponin, a normal urine sample and other euceda unremarkable labs. She has an un-supportive family social network, and there was mention of progressing toward Hospice care, but this is not in place at this time. I have ordered a Hospice referral. She will be admitted for treatment of COPD exacerbation, and symptom management with plans to be discharged with Hospice. - HOSPITAL COURSE Hospital Course: pt was admitted for COPD exacerbation. Pt was treated with steroid and INH treatment. the inpt course as the following: (1) COPD exacerbation stable, return pt's baseline, 95% sats on 3 liter of O2. pt is O2-dependent at home with 4 liter of O2. continue home regimen and followup PCP and her surgical supervisor as out-pt. pt is prescribed Morphine ER for her breath. Wane off Steroid with Prednisone (2) Chronic respiratory failure with hypoxia, on home oxygen therapy stable, pt is prescribed Morphine ER for her breath (3) Hypertension stable (4) Chronic sinusitis stable, pt is prescribe Levequin to finish the antibiotics course. (5) Palliative care status Again, pt could not make her own decision for hospice care. I discussed with her about the benefit and rules, risk of hospice care. Although she told she will request to have hospice at morning, but she changed her mind again, she does not want hospice care at this time. (6) Tachycardia resolved (7) anxiety pt present anxiety in the hospital course. pt is prescribed Sertraline for her anxiety I discussed with pt about all medication's effects and side effect, and answer all questions. Pt decline hospice care, nurse facility/SNF care. pt became stable, as her baseline, and followup PCP, palliative care, home health RN and A[facility]ES, her surgical supervisor and oncologist as out-pt. - ALLERGIES Allergies/Adverse Reactions: Allergies Allergy/AdvReac Type Severity Reaction Status Date / Time No Known Drug Allergies Allergy Verified 10/13/18 06:41 - MEDICATIONS Home Medications: Ambulatory Orders Medication Instructions Recorded Confirmed Albuterol Sulfate [Proair Hfa 2 puffs INH Q4H PRN 08/31/16 10/13/18 Inhaler] Fluticasone/Salmeterol [Advair 1 puffs INH BID #1 blst.w.dev 04/23/18 10/13/18 500-50 Diskus] Atorvastatin Calcium 20 mg PO QPM 07/18/18 10/13/18 amLODIPine [Norvasc] 5 mg PO DAILY 07/18/18 10/13/18 [id number] CD [Cardizem Cd] 120 mg PO DAILY #15 capsule 09/19/18 10/13/18 Albuterol 2.5 mg INH QID 10/13/18 10/13/18 Morphine ER 15 mg PO Q12H PRN #6 tablet 10/18/18 Sertraline [Zoloft] 50 mg PO DAILY #10 tablet 10/18/18 levoFLOXacin [Levaquin] 500 mg PO DAILY #5 tablet 10/18/18 predniSONE [Deltasone] 10 mg PO [id number] #[id number] tab 10/18/18 - PHYSICAL EXAM AT DISCHARGE General Appearance: positive: No acute distress, Alert. negative: Lethargic Eyes Bilateral: positive: Normal inspection, PERRL, No lid inflammation, Conjunctivae nml ENT: positive: ENT inspection nml, Pharynx nml, No signs of dehydration. negative: Purulent nasal drainage, Pharyngeal erythema, Oral lesions Neck: positive: Nml inspection, Thyroid nml, No JVD. negative: Trachea midline, Thyromegaly, Lymphadenopathy (R), Lymphadenopathy (L), Stiff neck, Swelling/bruising, Tracheal deviation Respiratory: positive: Chest non-tender, No respiratory distress. negative: Wheezes, Rales Cardiovascular: positive: Regular rate & rhythm, No murmur, No gallop. negative: Irregularly irregular, Extrasystoles, Tachycardia, Bradycardia, JVD present, Systolic murmur, Diastolic murmur Peripheral Pulses: positive: 2+ Abdomen: positive: Non-tender, No organomegaly, Nml bowel sounds, No distention. negative: Tenderness, Rebound Back: positive: Nml inspection. negative: CVA tenderness (R), CVA tenderness (L) Skin: positive: Color nml, No rash, Warm, Dry. negative: Cyanosis, Diaphoresis, Pallor Extremities: positive: Non-tender, Nml appearance. negative: Calf tenderness, Joint swelling, Florecita's sign/cords Neurologic/Psychiatric: positive: Oriented x3, Sensation nml, Mood/affect nml. negative: Weakness, Sensory loss, Depressed mood/affect - LABS Result Diagrams: 10/18/18 04:30 10/18/18 04:30 - SEPSIS Current Stage of Sepsis: Ruled out - FOLLOW UP Follow Up: You may followup your PCP in one week, followup your palliative care provider on tomorrow, follow up your surgical supervisor and oncologist as out-pt. You were admitted for COPD exacerbation. after treated in hospital, you are stable as your baseline. You decline to be d/c to nurse facility/SNF or advance hospice care. You are arranged to have home health AIDES and home health RN. You are prescribed new medications Morphine ER, Prednisone and Zoloft for you, and discussed with you about these medication effects and side effects. All your question were answered. Should your symptoms return or worsen, you may present ER or call 911 for help. - TIME SPENT Time Spent in Discharge (Minutes): 60
[2018-10-18] MEDS: LORazepam 2 MG/ML VIAL IVP PRN (13:22)
[2018-10-18] MEDS: SODIUM CHLORIDE FLUSH 0.9% 10 ML SYRINGE IVP PRN (13:22)
== END 2018-10-18 14:25 | disposition home health service (06) | DRG 191 ==
LOC: EDUNIT# → ED 06:18 → MS2 08:16
PROVIDERS: ADMIT Nurse Practitioner; ATTEND Nurse Practitioner Gerontology
DX: J44.1 Chronic obstructive pulmonary disease with (acute) exacerbation (principal); J96.11 Chronic respiratory failure with hypoxia; T40.2X6A Underdosing of other opioids, initial encounter; I10 Essential (primary) hypertension; J32.1 Chronic frontal sinusitis; F41.9 Anxiety disorder, unspecified; J84.10 Pulmonary fibrosis, unspecified; I27.20 Pulmonary hypertension, unspecified; R00.0 Tachycardia, unspecified; F40.240 Claustrophobia; R32 Unspecified urinary incontinence; R35.0 Frequency of micturition; R41.81 Age-related cognitive decline; F32.9 Major depressive disorder, single episode, unspecified; K59.03 Drug induced constipation; T40.2X5A Adverse effect of other opioids, initial encounter; R60.0 Localized edema; Z51.5 Encounter for palliative care; Z60.2 Problems related to living alone; Z74.2 Need for assistance at home and no other household member able to render care; Z91.138 Patient's unintentional underdosing of medication regimen for other reason; Z85.118 Personal history of other malignant neoplasm of bronchus and lung; Z99.81 Dependence on supplemental oxygen; Z87.01 Personal history of pneumonia (recurrent); Z87.891 Personal history of nicotine dependence; Z79.899 Other long term (current) drug therapy; Z79.51 Long term (current) use of inhaled steroids; Z86.79 Personal history of other diseases of the circulatory system
CPT/HCPCS: 36415; 36600; 71045; 80053; 82803; 83605; 83690; 83735; 83880; 84100; 84484; 85025; 87070; 87181; 87205; 93005; 94640; 99233; 99285

== ENCOUNTER 2018-10-30 11:55 | Outpatient (CLI) | payer MEDICARE, MEDICAID | END 2018-10-30 11:56 | disposition critical access hospital (66) | LOC: EMS 11:55 | PROVIDERS: ATTEND Surgery | DX: R06.02 Shortness of breath (principal) | CPT/HCPCS: A0425; A0427 ==

== ENCOUNTER 2018-10-30 12:20 | Emergency (ER) | payer MEDICARE, MEDICAID ==
--- NOTE | 2018-10-30 12:29 | ED Physician Documentation ---
PD HPI DYSPNEA - Stated complaint Stated Complaint: SOA - History obtained from History obtained from: Patient - History of Present Illness Timing - onset: How many days ago (She does have history of chronic COPD and pulmonary fibrosis with chronic dyspnea. She uses home nebulizers and has home oxygen at 4-4-1/2 L/min nasal cannula. She had been hospitalized recently with pneumonia and exacerbation of the COPD. She has finished her antibiotics and steroids. She states last several days she has had increased cough with some greenish da silva sputum. No fevers. She has had some increased dyspnea over baseline. She went to her primary care today really is a follow-up to the recent hospitalization. There they found her oxygen and level to be low in the 80s. However this was on a lower oxygen amount and after activity walking into the primary care office. She states she felt about her baseline level of dyspnea with activity. However she was sent here because of the low oxygen and wheezing. She states she felt better on route with a nebulizer and with rest. Here in the ER she states she feels at her baseline but does have a little bit increased cough over usual.) Timing - onset during: Light activity, Exertion Timing - duration: Days Timing - details: Gradual onset, Still present Improved by: O2, Rest Worsened by: Exertion Associated symptoms: Cough, Wheezing, Chest pain / discomfort. No: Fever, Palpitations Similar symptoms before: Diagnosis Recently seen: Emergency Dept, Admitted Review of Systems Constitutional: reports: Myalgias. denies: Fever, Chills Nose: denies: Rhinorrhea / runny nose, Congestion Throat: denies: Sore throat Cardiac: reports: Chest pain / pressure (with cough and deep breathing). denies: Palpitations, Pedal edema, Calf pain Respiratory: reports: Dyspnea, Cough (with green sputum), Wheezing GI: denies: Abdominal Pain, Nausea, Vomiting, Diarrhea Musculoskeletal: denies: Extremity swelling Neurologic: reports: Generalized weakness. 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 HEENT: Chronic sinusitis Psych: Depression, Anxiety Musculoskeletal: Osteoarthritis, Fatigue Derm: None - Past Surgical History Past Surgical History: No General: Cholecystectomy HEENT: Tonsil/Adenoidectomy - Present Medications Home Medications: Ambulatory Orders Medication Instructions Recorded Confirmed Albuterol Sulfate [Proair Hfa 2 puffs INH Q4H PRN 08/31/16 10/13/18 Inhaler] Fluticasone/Salmeterol [Advair 1 puffs INH BID #1 blst.w.dev 04/23/18 10/13/18 500-50 Diskus] Atorvastatin Calcium 20 mg PO QPM 07/18/18 10/13/18 amLODIPine [Norvasc] 5 mg PO DAILY 07/18/18 10/13/18 LORazepam [Ativan] 0.5 mg PO Q8H PRN 10/19/18 10/19/18 Morphine Sulfate [Morphine Sulf 0.25 ml PO Q2H PRN 10/19/18 10/19/18 Oral (Roxanol)] Polyethylene Glycol 3350 [Miralax] 17 g PO DAILY 10/19/18 10/19/18 Cetirizine [ZyrTEC] 1 tab PO DAILY PRN 10/30/18 10/30/18 Dexamethasone [Decadron] 4 mg PO DAILY #7 tablet 10/30/18 Doxycycline Hyclate 100 mg PO BID #20 capsule 10/30/18 Loratadine 1 cap PO DAILY 10/30/18 10/30/18 Omeprazole 1 cap PO DAILY 10/30/18 10/30/18 Ondansetron [Ondansetron Odt] 1 tab PO DAILY 10/30/18 10/30/18 Saccharomyces Boulardii [Florastor] 1 cap PO DAILY 10/30/18 10/30/18 Valsartan [Diovan] 1 tab PO DAILY 10/30/18 10/30/18 guaiFENesin [Guaifenesin] 5 ml PO Q4HR PRN 10/30/18 10/30/18 predniSONE [Prednisone] 1 tab PO DAILY 10/30/18 10/30/18 traMADol [Ultram] 1 tab PO DAILY 10/30/18 10/30/18 - Allergies Allergies/Adverse Reactions: Allergies Allergy/AdvReac Type Severity Reaction Status Date / Time No Known Drug Allergies Allergy Verified 10/30/18 13:01 - Social History Does the pt smoke?: No Smoking Status: Never smoker Does the pt drink ETOH?: Yes Does the pt have substance abuse?: No - Immunizations Immunizations are current?: No Immunizations: TDAP >10years/unknown - POLST Patient has POLST: No POLST Status: Full Code PD ED PE NORMAL - Vitals Vital signs reviewed: Yes - General General: Alert and oriented X 3, Well developed/nourished, Other (some mild pursed lip breathing, but patient says this is her normal pattern. Sats are good on her usual 4 lpm NC. ) - HEENT HEENT: Ears normal, Pharynx benign - Neck Neck: Supple, no meningeal sign, No adenopathy - Cardiac Cardiac: No murmur. No: RRR (tachycardic but regular) - Respiratory Respiratory: No: Clear bilaterally (diffuse exp wheezing. No coarse sounds. There is some pursed lip breathing, but no accesory muscle use. ) - Abdomen Abdomen: Soft, Non tender - Back Back: No CVA TTP - Derm Derm: Normal color, Warm and dry - Extremities Extremities: No deformity, No tenderness to palpate, No edema, No calf tenderness / cord - Neuro Neuro: Alert and oriented X 3, No motor deficit, Normal speech Results - Vitals Vitals: Vital Signs - 24 hr 10/30/18 10/30/18 10/30/18 12:22 12:48 13:16 Temperature 37.1 C Heart Rate 113 H 108 H 102 H Respiratory 24 22 16 Rate Blood Pressure 154/62 H 144/65 H O2 Saturation 89 L 98 10/30/18 10/30/18 10/30/18 14:02 14:25 14:37 Temperature Heart Rate 103 H 102 H 104 H Respiratory 15 17 17 Rate Blood Pressure 144/65 H 135/62 H O2 Saturation 95 95 Oxygen O2 Source Nasal cannula Oxygen Flow Rate 4.5 - Labs Labs: Laboratory Tests 10/30/18 10/30/18 10/30/18 13:40 13:40 13:40 WBC 9.1 RBC 3.74 L Hgb 11.3 L Hct 33.8 L MCV 90.3 MCH 30.1 MCHC 33.4 RDW 15.6 H Plt Count 260 MPV 5.9 L Neut # (Auto) 8.2 H Lymph # (Auto) 0.6 L Bourbon # (Auto) 0.2 Eos # (Auto) 0.1 Baso # (Auto) 0.0 Absolute Nucleated RBC 0.00 Nucleated RBC % 0.0 Sodium 138 Potassium 3.7 Chloride 92 L Carbon Dioxide 41 H* Anion Gap 5.0 L BUN 7 Creatinine 0.5 Estimated GFR (MDRD) 123 Glucose 141 H Lactic Acid Calcium 8.5 Magnesium 1.8 Total Bilirubin 0.8 AST 19 ALT 16 Alkaline Phosphatase 72 B-Natriuretic Peptide 65 Total Protein 6.7 Albumin 3.4 Globulin 3.3 Albumin/Globulin Ratio 1.0 Lipase 24 10/30/18 13:40 WBC RBC Hgb Hct MCV MCH MCHC RDW Plt Count MPV Neut # (Auto) Lymph # (Auto) Bourbon # (Auto) Eos # (Auto) Baso # (Auto) Absolute Nucleated RBC Nucleated RBC % Sodium Potassium Chloride Carbon Dioxide Anion Gap BUN Creatinine Estimated GFR (MDRD) Glucose Lactic Acid 1.6 Calcium Magnesium Total Bilirubin AST ALT Alkaline Phosphatase B-Natriuretic Peptide Total Protein Albumin Globulin Albumin/Globulin Ratio Lipase - Rads (name of study) chest xray Radiology: Prelim report reviewed, EMP read contemporaneously (no acute infiltrates) PD MEDICAL DECISION MAKING - ED course Complexity details: re-evaluated patient (given nebs and meds. She says her breathing feels at baseline. Still wheezing. She prefers going home. ), considered differential, d/w patient Departure - Departure Disposition: 01 Home, Self Care Clinical Impression: COPD exacerbation Bronchitis, acute Qualifiers: Bronchitis organism: unspecified organism Qualified Code(s): J20.9 - Acute bronchitis, unspecified Condition: Stable Record reviewed to determine appropriate education?: Yes Follow-Up: Kirti Phillips ARNP [Primary Care Provider] - Prescriptions: Dexamethasone [Decadron] 4 mg PO DAILY #7 tablet Doxycycline Hyclate 100 mg PO BID #20 capsule Comments: Continue your home oxygen and nebulizers. Add Decadron steroid and doxycycline antibiotic. See how you are feeling over the next few days. Return if worsening symptoms. Discharge Date/Time: 10/30/18 14:53
[2018-10-30] MEDS ORDERED: DOXYCYCLINE 100 MG TABLET PO STA (12:55)
[2018-10-30] MEDS ORDERED: IPRATROPIUM/ALBUTEROL 3 ML NEB INH STA (12:55)
[2018-10-30] MEDS ORDERED: DEXAMETHASONE 10 MG/ML VIAL IVP STA (12:55)
[2018-10-30] MEDS ORDERED: MORPHINE 2 MG/ML CARPUJECT IVP STA (12:56)
[2018-10-30] MEDS ORDERED: SODIUM CHLORIDE 0.9% 1,000 ML IV ONE (12:56)
--- NOTE | 2018-10-30 13:34 | XRAY Report ---
Reason: chest pain Procedure Date: 10/30/2018 Accession Number: [id number] / [id number] Procedure: XR - Chest 1 View X-Ray CPT Code: 82486 FULL RESULT: EXAM: CHEST RADIOGRAPHY EXAM DATE: 10/30/2018 01:15 PM. CLINICAL HISTORY: Chest pain. COMPARISON: CHEST 1 VIEW 10/13/2018 6:48 AM CHEST W/ 10/02/2018 11:34 AM. TECHNIQUE: Upright AP view. FINDINGS: Lungs/Pleura: No focal opacities evident. Rarefied markings in the mid to upper lungs bilaterally corresponding to emphysema on the prior CT. No pleural effusion. No pneumothorax. Mediastinum: Within exam limitations, the cardiomediastinal contour is normal. Mild aortic arch calcification. Other: None. IMPRESSION: 1. Mid upper bilateral lung emphysema. 2. No focal airspace opacities. RADIA
[2018-10-30 13:47] LABS: BASOPHILS % (AUTO) 0.1 %; EOSINOPHILS # (AUTO) 0.1 10^3/uL (0.0-0.7); HGB - HEMOGLOBIN 11.3 g/dL (12.0-16.0); LYMPHOCYTES # (AUTO) 0.6 10^3/uL (1.5-3.5); LYMPHOCYTES % (AUTO) 6.1 %; MEAN CORPUSCULAR HEMOGLOBIN 30.1 pg (27.0-31.0); MEAN CORPUSCULAR HGB CONC 33.4 g/dL (32.0-36.0); MEAN CORPUSCULAR VOLUME 90.3 fL (81.0-99.0); MEAN PLATELET VOLUME 5.9 fL (7.9-10.8); MONOCYTES # (AUTO) 0.2 10^3/uL (0.0-1.0); MONOCYTES % (AUTO) 2.6 %; NEUTROPHILS # (AUTO) 8.2 10^3/uL (1.5-6.6); NEUTROPHILS % (AUTO) 90.2 %; PLT - PLATELET COUNT 260 10^3/uL (130-450); RED BLOOD COUNT 3.74 10^6/uL (4.20-5.40); RED CELL DISTRIBUTION WIDTH 15.6 % (12.0-15.0); WHITE BLOOD COUNT 9.1 x10^3/uL (4.8-10.8)
[2018-10-30 14:02] LABS: ALBUMIN 3.4 g/dL (3.2-5.5); BILIRUBIN,TOTAL 0.8 mg/dL (0.2-1.0); CALCIUM 8.5 mg/dL (8.5-10.3); CREATININE 0.5 mg/dL (0.4-1.0); MAGNESIUM 1.8 mg/dL (1.7-2.8); TOTAL PROTEIN 6.7 g/dL (6.7-8.2)
[2018-10-30] MEDS ORDERED: ALBUTEROL NEB 2.5 MG/3 ML INH STA (14:06)
[2018-10-30 14:41] VITALS: BP 135/62
== END 2018-10-30 14:53 | disposition home or self-care (01) ==
LOC: EDUNIT# → ED 12:20
DX: J44.1 Chronic obstructive pulmonary disease with (acute) exacerbation (principal); J44.0 Chronic obstructive pulmonary disease with (acute) lower respiratory infection; J20.9 Acute bronchitis, unspecified; J84.10 Pulmonary fibrosis, unspecified; Z99.81 Dependence on supplemental oxygen; I10 Essential (primary) hypertension
CPT/HCPCS: 36415; 71045; 80053; 83605; 83690; 83735; 83880; 85025; 94640; 96374; 99283; 99284; A9270

== ENCOUNTER 2018-10-31 14:05 | Outpatient (CLI) | payer MEDICARE, MEDICAID ==
--- NOTE | 2018-10-31 18:01 | CONSULTATION NOTE ---
Palliative Care Follow Up - Referral Referring Provider: DOMINGO Reyes Time of Visit: 10/31/2018. 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 PET and MRI were incoconclusive for cancer, bur revealed no brain mets. A lung biopsy can't be performed so there is no cancer diagnosis. -Patient has had frequent hospitalizations/ED visits since April: -April for COPD exacerbation, lung mass detected -May ED for SOA -Jul 18 hospital for pneumonia -Sep 13 ED for SOA -Sep 16 hospitalization for pneumonia -Oct 13 hospitalization for COPD exacerbation. -Oct 30 ED for COPD exacerbation, bronchitis, DC'd with decadron and doxycycline -[facility] was to have started 10/30/18 (it was supposed to have started the previous week, but the patient didn't understand what they were calling about and initially declined the service). -The patient also had a PCP appointment on 10/30/18. -During the PCP visit, patient had SOA and increased green-da silva sputum, was transferred via EMS to ED. -ED diagnosed COPD exacerbation and discharged her home with Decadron and doxycycline for bronchitis. -Patient is very short of air today, her condition continues to decline. -Patient has chosen to remain at home, does not have a [facility] by her own choice, and wants to continue to use her [facility] for transfer to ED as needed for respiratory distress. -Patient's situation at home is precarious, she actually should be in the facility but has declined that at the last hospitalization. -Her daughter, Ivette, is staying with her and trying to help organize her life. -Rigid is frustrated about the medication situation. She was hoping for help with the weekday caregiver, but this has not been forthcoming. -Today this SALES REPRESENTATIVE [employer] was unable to contact patient by telephone prior to the visit, her phone service is disconnected for the moment. Ivette is following up to get the patient's phone reconnected. -Apparently the utility bills have not been paid, although a check was given to the caregiver who said she mailed it. -Ivette was unclear about the medications; she was hoping the caregiver would help organize meds. This has been done numerous times with Palliative Care. We did a reconciliation today. -I explained Home Health RN will help with meds and organizing them. Patient keeps old, half-used pill bottles from previous hospitalizations and ED visits -Ivette is also concerned that the project controls scheduler did not show up and they need a replacement. She will contact the agency. -I provided the information I had, Berta her sales enablement specialist. She also has worked with a man from [employer], I do not have his contact information. The patient has lost it. -Patient and daughter miss her previous caregiver, Lizzette. Lizzette had confessed to me that although she cared about the patient, one reason she left was that trying to organize and improve the patient's situation was too stressful. -Patient has long-acting morphine ER 15mg from hospital. She took one dose this morning, and has not used the short-acting liquid morphine with it. Provided education about respiratory sedation and monitoring/limiting her usage of the short-acting while using long-acting. -She is also using Trilogy consistently, not using the nebulizer much. -Her heartrate is high today, 124. She is using amlodipine. -Also unclear when HH RN will start. Patient and Ivette thought Monday; when I called [facility] prior to my visit, the history tutor mentioned Monday. Ivette is to follow up. -She asked many questions about social insurance adviser, I answered to the limit of knowledge, also offered Palliative Care SW as a resource. -At present, Ivette will follow up with Berta the sales enablement specialist and also [facility] to confirm new admit date to Home Health. -I spoke with [facility] history tutor and asked them to have their Home Health RN call me for background information. Social History - Living Situation Living arrangement: At home Living Situation: Alone, With caregiver(s) Support System: LAURA caregiver hours: Reji: T-F 10:30 - 12:30 and also T 3-5pm. MWThF 4:30-6:30pm Uvaldo: Sat and Sun 11:30-4pm This caregiver did not come over the weekend. Her daughter Ivette is staying at the patient's apartment on a temporary basis to help out and to organize her. The DPOA is patient's sister, who is not in the picture. Medications/Allergies - Medications Home Medications: Ambulatory Orders Medication Instructions Recorded Confirmed Albuterol Sulfate [Proair Hfa 2 puffs INH Q4H PRN 08/31/16 10/13/18 Inhaler] Fluticasone/Salmeterol [Advair 1 puffs INH BID #1 blst.w.dev 04/23/18 10/13/18 500-50 Diskus] Atorvastatin Calcium 20 mg PO QPM 07/18/18 10/13/18 amLODIPine [Norvasc] 5 mg PO DAILY 07/18/18 10/13/18 LORazepam [Ativan] 0.5 mg PO Q8H PRN 10/19/18 10/19/18 Morphine Sulfate [Morphine Sulf 0.25 ml PO Q2H PRN 10/19/18 10/19/18 Oral (Roxanol)] Polyethylene Glycol 3350 [Miralax] 17 g PO DAILY 10/19/18 10/19/18 Cetirizine [ZyrTEC] 1 tab PO DAILY PRN 10/30/18 10/30/18 Dexamethasone [Decadron] 4 mg PO DAILY #7 tablet 10/30/18 Doxycycline Hyclate 100 mg PO BID #20 capsule 10/30/18 Loratadine 1 cap PO DAILY 10/30/18 10/30/18 Omeprazole 1 cap PO DAILY 10/30/18 10/30/18 Ondansetron [Ondansetron Odt] 1 tab PO DAILY 10/30/18 10/30/18 Valsartan [Diovan] 1 tab PO DAILY 10/30/18 10/30/18 guaiFENesin [Guaifenesin] 5 ml PO Q4HR PRN 10/30/18 10/30/18 Morphine ER 15 mg PO BID PRN MDD Short course 11/01/18 11/01/18 from hospital Sertraline [Zoloft] 50 mg PO DAILY 11/01/18 11/01/18 - Allergies Allergies/Adverse Reactions: Allergies Allergy/AdvReac Type Severity Reaction Status Date / Time No Known Drug Allergies Allergy Verified 10/30/18 13:01 Review of Systems - Constitutional Constitutional: reports: Fatigue, Weakness, Weight stable, Other (Became overheated during visit) - Cardiovascular Cardiovascular: reports: Edema (feet), Decr. exercise tolerance - Respiratory Respiratory: reports: Sputum production, SOB at rest, SOB with exertion - Genitourinary Genitourinary: reports: Other (commode is next to her recliner). denies: Incontinence - Neurological Neurological: reports: Other (confusion) Physical Exam - Vital Signs Temperature: 97.1 F Pulse Rate: 126 O2 Saturation: 96 (4 - 4.5L) Blood Pressure: 146/64 (wrist cuff) - Physical Exam General Appearance: positive: Alert, Mild distress (chronic SOA) ENT: positive: No signs of dehydration Neck: positive: Trachea midline Cardiovascular: positive: Tachycardia Respiratory: positive: Diminished throughout (significantly; almost no air sounds on auscultation, this is baseline) Skin: positive: Pallor Extremities: positive: Pedal edema (2+) Neurologic/Psychiatric: positive: Oriented x3, Flat affect Palliative Care - POLST Patient has POLST: No - Palliative Care Discussion: She confirms that home is where she wants to be. This is not a safe environment, but it was patient's decision and choice as a result of extensive discussions at her previous hospitalization. The hope is that monitoring can provide some organziation and help with organizing the medications, and evaluation of respiratory status and early intervention. I helped the daughter organize the current medications. Patient still has her partially used prior medications, some antibiotics she didn't complete. Impression and Recommendations - Palliative Care Impression: Patient's medical status is extremely poor and fragile. She had an ED visit yesterday for SOA and bronchitis, DC'd home same day on steroids and antibiotics. Her plan is to continue to use [facility] to go to ED for respiratory crises. Daughter is currently staying with her, and Home Health ([facility] was due to start yesterday, now will admit at end of week or weekend. Daughter said she will confirm directly with [facility]. Patient is not safe at home, but had refused SNF/LTC placement at last hospitalization. She does have a DPOA, her sister, but the sister has not been involved. Patient does not have a POLST and has refused Hospice. Palliative care will continue to provide support. Recommendations/Counseling Done: COPD exacerbation, end stage lung disease: ED visit yesterday for SOA. Treated and DC'd home same day, with Decadron 4mg daily x 7 days, and doxycycline 100mg BID x 10 days. She still has the morphine ER 15mg BID from last hospital visit, she used one pill this morning, has not used the short-acting morphine today. SALES REPRESENTATIVE [employer] reiterated education respiratory sedation, side effects. Oxygen is 4 to 4.5L. She continues the inhalers and Trilogy consistently. Wrote renewal script for VentolinHFA 90mcg 1 puff Q6h PRN. Constipation, opioid induced: She has had miralax in the past. Wrote a new script at daughter's request: Miralax 17.5mg daily and Senna 8.6 tab daily. Provided education that insurance likely wouldn't pay since they are OTC. HTN: BP today 146/64, HR elevated at 124. Amlodipine and valsartan. Anxiety: Continue sertraline 50mg daily. She also has lorazepam tablets at home. Advance care planning: Patient declined hospice referral in hospital. No POLST. Patient wants to continue to use hospital and ED for respiratory crises. Daughter is staying with patient temporarily, Home Health will hopefully start this week or weekend. They were to have started yesterday but she went to ED. Talked to [facility] and asked them to have their HH RN call me for background information. Follow up as needed. Spoke to Palliative Care SW, may call her in for support and education for daughter, if pt and family agreeable. Time Spent: 65 minutes with more than 50% of the time spent on counseling, education, and coordination of care reconciling medications and care discussion with patient's daughter.
== END 2018-10-31 14:06 | disposition home or self-care (01) ==
LOC: PC 14:05
PROVIDERS: ATTEND Nurse Practitioner
DX: Z51.5 Encounter for palliative care (principal); J44.1 Chronic obstructive pulmonary disease with (acute) exacerbation; K59.03 Drug induced constipation; T40.2X5A Adverse effect of other opioids, initial encounter; I10 Essential (primary) hypertension; F41.9 Anxiety disorder, unspecified; I27.20 Pulmonary hypertension, unspecified; J84.10 Pulmonary fibrosis, unspecified; D49.1 Neoplasm of unspecified behavior of respiratory system; Z87.01 Personal history of pneumonia (recurrent); Z79.899 Other long term (current) drug therapy; Z79.51 Long term (current) use of inhaled steroids; Z79.891 Long term (current) use of opiate analgesic; Z99.81 Dependence on supplemental oxygen
CPT/HCPCS: 99350

== ENCOUNTER 2018-11-19 12:28 | Outpatient (CLI) | payer MEDICARE, MEDICAID | END 2018-11-19 12:29 | disposition critical access hospital (66) | LOC: EMS 12:28 | PROVIDERS: ATTEND Surgery | DX: R06.02 Shortness of breath (principal) | CPT/HCPCS: A0425; A0427 ==

== ENCOUNTER 2018-11-19 12:54 | Inpatient (IN) | payer MEDICARE, MEDICAID ==
[2018-11-19] MEDS ORDERED: ALBUTEROL NEB 2.5 MG/3 ML INH STA (13:09)
[2018-11-19] MEDS ORDERED: methylPREDNISolone SUCCINATE 125 MG/2 ML VIAL IVP STA (13:09)
--- NOTE | 2018-11-19 13:12 | ED Physician Documentation ---
PD HPI DYSPNEA - Stated complaint Stated Complaint: COPD EXAC - Chief complaint Chief Complaint: Resp - History obtained from History obtained from: Patient - History of Present Illness Timing - onset: Other (68-year-old woman with history of COPD on oxygen at home presents with increased shortness of breath and productive cough. She was seen here earlier this month and given steroids and antibiotics. She went to the clinic today where she was found to have sats in the 60s and was placed on a nonrebreather and given a DuoNeb in route. 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 HEENT: Chronic sinusitis Psych: Depression, Anxiety Musculoskeletal: Osteoarthritis, Fatigue Derm: None - Past Surgical History Past Surgical History: No General: Cholecystectomy HEENT: Tonsil/Adenoidectomy - Present Medications Home Medications: Ambulatory Orders Medication Instructions Recorded Confirmed Albuterol Sulfate [Proair Hfa 2 puffs INH Q4H PRN 08/31/16 10/13/18 Inhaler] Fluticasone/Salmeterol [Advair 1 puffs INH BID #1 blst.w.dev 04/23/18 10/13/18 500-50 Diskus] Atorvastatin Calcium 20 mg PO QPM 07/18/18 10/13/18 amLODIPine [Norvasc] 5 mg PO DAILY 07/18/18 10/13/18 LORazepam [Ativan] 0.5 mg PO Q8H PRN 10/19/18 10/19/18 Morphine Sulfate [Morphine Sulf 0.25 ml PO Q2H PRN 10/19/18 10/19/18 Oral (Roxanol)] Polyethylene Glycol 3350 [Miralax] 17 g PO DAILY 10/19/18 10/19/18 Cetirizine [ZyrTEC] 1 tab PO DAILY PRN 10/30/18 10/30/18 Dexamethasone [Decadron] 4 mg PO DAILY #7 tablet 10/30/18 Doxycycline Hyclate 100 mg PO BID #20 capsule 10/30/18 Loratadine 1 cap PO DAILY 10/30/18 10/30/18 Omeprazole 1 cap PO DAILY 10/30/18 10/30/18 Ondansetron [Ondansetron Odt] 1 tab PO DAILY 10/30/18 10/30/18 Valsartan [Diovan] 1 tab PO DAILY 10/30/18 10/30/18 guaiFENesin [Guaifenesin] 5 ml PO Q4HR PRN 10/30/18 10/30/18 Morphine ER 15 mg PO BID PRN MDD [facility] course [facility]01[facility]raline [Zoloft] 50 mg PO DAILY 11/01/18 11/01/18 - Allergies Allergies/Adverse Reactions: Allergies Allergy/AdvReac Type Severity Reaction Status Date / Time No Known Drug Allergies Allergy Verified 11/19/18 13:09 - Social History Does the pt smoke?: No Smoking Status: Never smoker Does the pt drink ETOH?: Yes Does the pt have substance abuse?: No - Immunizations Immunizations are current?: No Immunizations: TDAP >10years/unknown - POLST Patient has POLST: No POLST Status: Full Code PD ED PE NORMAL - Vitals Vital signs reviewed: Yes - General General: Alert and oriented X 3, Other (Pursed lip breathing with increased I:E ratio, speaking in 3 word sentences.) - HEENT HEENT: PERRL, EOMI - Neck Neck: Supple, no meningeal sign, No bony TTP - Cardiac Cardiac: RRR, No murmur - Respiratory Respiratory: Other (Labored breathing with increased I to E ratio. Very tight with decreased air motion.) - Abdomen Abdomen: Soft, Non tender - Back Back: No CVA TTP, No spinal TTP - Extremities Extremities: No edema, No calf tenderness / cord - Neuro Neuro: Alert and oriented X 3 - Psych Psych: Normal mood, Normal affect Results - Vitals Vitals: Vital Signs - 24 hr 11/19/18 11/19/18 11/19/18 13:02 13:10 13:18 Temperature 36.3 C L Heart Rate 98 98 Respiratory 24 22 Rate Blood Pressure 123/42 L O2 Saturation 94 96 11/19/18 14:03 Temperature 36.8 C Heart Rate 101 H Respiratory 26 H Rate Blood Pressure 131/58 H O2 Saturation 92 Oxygen O2 Source Room air Oxygen Flow Rate 4 - Labs Labs: Laboratory Tests 11/19/18 11/19/18 13:45 13:45 WBC 7.9 RBC 3.94 L Hgb 11.6 L Hct 35.1 L MCV 89.1 MCH 29.4 MCHC 33.0 RDW 15.7 H Plt Count 274 MPV 6.2 L Neut # (Auto) 6.0 Lymph # (Auto) 1.2 L Jones # (Auto) 0.6 Eos # (Auto) 0.1 Baso # (Auto) 0.0 Absolute Nucleated RBC 0.00 Nucleated RBC % 0.0 VBG pH 7.341 VBG pCO2 87.1 H VBG pO2 36.0 VBG HCO3 46.0 H VBG Total CO2 48.7 H VBG O2 Saturation 68.9 VBG Base Excess 16.2 H PD MEDICAL DECISION MAKING - ED course ED course: 68-year-old woman presents with severe COPD exacerbation with hypoxemia. She had been administered DuoNeb on the way here and this was followed by a triple neb. Slight improvement in her examination. Blood gas was only mildly acidemic with a CO2 of 87. Looks like her baseline CO2 from prior blood gases is probably near 70. Spoke with Dr. Johns for admission at 2:10 PM. - Critical Care Time(min): 45 Time Includes: Direct patient care, Review records, Reassess patient, Document care, Coordinate care, Medical consult Data interpretation: Labs, Pulse ox Procedures included in critical care time: Peripheral IV Procedures excluded from critical care time: EKG Departure - Departure Disposition: 66 [facility] DC/Xfer Clinical Impression: COPD (chronic obstructive pulmonary disease) Qualifiers: COPD type: emphysema Emphysema type: centrilobular Qualified Code(s): J43.2 - Centrilobular emphysema Condition: Critical
[2018-11-19 14:01] LABS: BASOPHILS % (AUTO) 0.3 %; EOSINOPHILS # (AUTO) 0.1 10^3/uL (0.0-0.7); EOSINOPHILS % (AUTO) 1.7 %; HGB - HEMOGLOBIN 11.6 g/dL (12.0-16.0); LYMPHOCYTES # (AUTO) 1.2 10^3/uL (1.5-3.5); LYMPHOCYTES % (AUTO) 14.9 %; MEAN CORPUSCULAR HEMOGLOBIN 29.4 pg (27.0-31.0); MEAN CORPUSCULAR VOLUME 89.1 fL (81.0-99.0); MEAN PLATELET VOLUME 6.2 fL (7.9-10.8); MONOCYTES # (AUTO) 0.6 10^3/uL (0.0-1.0); MONOCYTES % (AUTO) 7.7 %; NEUTROPHILS % (AUTO) 75.4 %; PLT - PLATELET COUNT 274 10^3/uL (130-450); RED BLOOD COUNT 3.94 10^6/uL (4.20-5.40); RED CELL DISTRIBUTION WIDTH 15.7 % (12.0-15.0); VBG PCO2 87.1 mmHg (41-51); VBG PH 7.341 (7.31-7.41); WHITE BLOOD COUNT 7.9 x10^3/uL (4.8-10.8)
[2018-11-19 14:02] LABS: VBG BASE EXCESS 16.2 mmol/L (-2 - +2); VBG TOTAL CO2 48.7 mmol/L (24-29)
[2018-11-19] MEDS ORDERED: cefTRIAXone 1 GM in SODIUM CHLORIDE 0.9% MINIBAG 100 ML IV STA (14:11)
[2018-11-19] MEDS ORDERED: CETIRIZINE 10 MG TABLET PO PRN (14:13)
[2018-11-19 14:18] LABS: ALBUMIN 3.3 g/dL (3.2-5.5); BILIRUBIN,TOTAL 0.7 mg/dL (0.2-1.0); CALCIUM 8.6 mg/dL (8.5-10.3); CREATININE 0.4 mg/dL (0.4-1.0); TOTAL PROTEIN 6.5 g/dL (6.7-8.2)
[2018-11-19] MEDS ORDERED: ACETAMINOPHEN 325 MG TABLET PO PRN (14:20)
[2018-11-19] MEDS ORDERED: PROCHLORPERAZINE 10 MG/2 ML VIAL IVP PRN (14:20)
[2018-11-19] MEDS ORDERED: PROMETHAZINE 25 MG/1 ML VIAL IM PRN (14:20)
[2018-11-19] MEDS ORDERED: ONDANSETRON 4 MG/2 ML VIAL IVP PRN (14:20)
--- NOTE | 2018-11-19 14:27 | XRAY Report ---
Reason: dyspnea, copd Procedure Date: 11/19/2018 Accession Number: [id number] / [id number] Procedure: XR - Chest 1 View X-Ray CPT Code: 38609 FULL RESULT: EXAM: CHEST RADIOGRAPHY EXAM DATE: 11/19/2018 01:12 PM. CLINICAL HISTORY: Dyspnea, copd. COMPARISON: CHEST 1 VIEW 10/30/2018 1:04 PM. TECHNIQUE: 1 view. FINDINGS: Lungs/Pleura: Lungs are hyperinflated with emphysematous bullous changes of the apices. Patchy retrocardiac densities are noted. No effusions or pneumothorax. Mediastinum: Stable cardiomediastinal silhouette. Other: None. IMPRESSION: 1. Retrocardiac opacities could represent developing infiltrates. 2. COPD. No effusions or pneumothorax. RADIA
[2018-11-19] MEDS ORDERED: LORazepam 2 MG/ML VIAL IVP STA (14:36)
--- NOTE | 2018-11-19 15:32 | HISTORY & PHYSICAL EXAMINATION ---
Chief Complaint - Chief Complaint Chief Complaint: Shortness of air History of Present Illness - Admitted From Admitted From:: Emergency department - History Obtained From Records Reviewed: Yes History obtained from: Patient in medical record Exam Limitations: Patient was unable to provide history secondary to lethargy - History of Present Illness HPI Comment/Other: Patient is a 67-year-old female with a past medical history significant for end- stage COPD on 4 L of oxygen, pulmonary fibrosis, pulmonary hypertension, pro bably lung cancer but unable to get biopsy to confirm, anxiety, osteoarthritis and hypertension who presented to the emergency department with a chief complaint of shortness of air. Patient unable to provide a detailed history as the patient was lethargic and on BiPAP when she presented to the ICU. The patient's history was provided from the emergency room records and patient's previous medical records. According to the emergency room records the patient has been having increasing shortness of air, cough and a fever at home for the last week. The patient was recently started on antibiotics due to the cough and fever. Today she had presented to her primary care physician's clinic with co mplaint of shortness of air. On arrival to the clinic the patient was found to have an oxygen saturation of 60%. EMS was called to the clinic and patient was found to have oxygen saturation between 70 and 80%. The patient was placed on a nonrebreather which allowed her to maintain her sats however the patient could not tolerate the nonrebreather secondary to having claustrophobia. The patient was then placed on nasal cannula and brought into the emergency department. On arrival to the emergency department the patient was initially saturating at 94% on 4 L of oxygen. However she quickly dropped her oxygen saturation down to 86% and was placed on a nonrebreather. Again the patient could not tolerate the nonrebreather so she was dropped back to 4 L of oxygen with which she desaturate d once again. The patient remained tachypneic and was in respiratory distress while in the emergency department. The patient was only able to speak 3 words at a time before she would become exhausted and short of air. The emergency room physician ordered routine lab work which did reveal a carbon dioxide on the blood chemistry of 41. Therefore he got a venous blood gas which showed a PCO2 of 87.1. The patient's baseline PCO2 appears to be between 50 and 60. The patient became increasingly lethargic and continued to have respiratory distress therefore she was placed on a BiPAP prior to being brought into the intensive care unit. The patient did not have any leukocytosis and her troponin was negative. The remainder of the patient's electrolytes were within normal limits. The patient did undergo an EKG which did not show any ST elevations or ischemic changes. The patient also underwent a chest x-ray which did show retrocardiac opacities concerning for developing infiltrates. Given the patient's acute respiratory failure with hypoxia and hypercapnia the patient was admitted to the ICU on BiPAP. The patient will be treated with IV antibiotics for pneumonia and with duo nebs and steroids for her COPD exacerbation. 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 Mom smoked up until her and she of COPD complications. Dad also of COPD. She has 4 brothers and one sister. All of them live in [place] except except one who lives in the [facility]. She says that no one has diabetes, hypertension, heart disease, or emphysema. Of 3 children her youngest daughter with killed or under suspicious circumstances. Her other 2 children are healthy. Social History Notes: Patient is a woman who lives alone in [place]. She was born in [place] and is retired. She has two children. The patient has lived on [facility] since 1983. Prior to that she lived in the [facility]. The patient has a daughter and son both of whom live on [facility]. The patient quit smoking Around 2007 but smoked 1 pack a day for over 50 years Starting at the age of 17. The patient does drink 1 beer a night. In the past she has done marijuana. When she was to her first he was a cocaine addict and she tried cocaine a few times but she never used it on a regular basis. She has not used it since her 20s.She has a Jonathan worker that comes by every day except Monday and Monday. But the jonathan worker is only a few hours a day. Because of excessive breathlessness, end-stage lung disease, she has become homebound over the last year - Substance History Use: Uses substance without health or social issues: NONE (Quit smoking but previously smoked 1PPD for over 50 years), Alcohol (1 beer a night) - POLST Patient has POLST: No POLST Status: Full Code Meds/Allgy - Home Medications Home Medications: Ambulatory Orders Medication Instructions Recorded Confirmed Albuterol Sulfate [Proair Hfa 1 puffs INH Q6H PRN 08/31/16 11/19/18 Inhaler] Atorvastatin Calcium 20 mg PO QPM 07/18/18 11/19/18 amLODIPine [Norvasc] 5 mg PO DAILY 07/18/18 11/19/18 Morphine Sulfate [Morphine Sulf 5 mg PO Q2H PRN 10/19/18 11/19/18 Oral (Roxanol)] Polyethylene Glycol 3350 [Miralax] 17 g PO DAILY 10/19/18 11/19/18 Loratadine 1 cap PO DAILY PRN 10/30/18 11/19/18 Valsartan [Diovan] 1 tab PO DAILY 10/30/18 10/30/18 Albuterol 2.5 mg INH Q4H PRN 11/19/18 11/19/18 Fluticasone [Flonase] 1 sprays PAULINE BID PRN 11/19/18 11/19/18 Furosemide 20 mg PO DAILY 11/19/18 11/19/18 Potassium Chloride 10 meq PO DAILY 11/19/18 11/19/18 dilTIAZem HCl [Diltiazem 24Hr ER] 120 mg PO DAILY 11/19/18 11/19/18 - Allergies Allergies/Adverse Reactions: Allergies Allergy/AdvReac Type Severity Reaction Status Date / Time No Known Drug Allergies Allergy Verified 11/19/18 13:09 Review of Systems - Other Findings Other Findings: Patient was unable to provide a review of systems secondary to lethargy likely from hypercapnia. The history provided above is obtained from medical records, emergency room records. Prior Level of Functionality: Patient is limited due to her COPD, pulmonary fibrosis and oxygen requirement at home. Exam - Vital Signs Reviewed Vital Signs: Yes Vital Signs: Vital Signs x48h Temp Pulse Resp BP BP Pulse Ox 11/19/18 15:29 36.6 C 20 133/48 H 94 11/19/18 14:57 91 22 123/44 L 94 11/19/18 14:39 90 26 H 123/44 L 92 11/19/18 14:03 36.8 C 101 H 26 H 131/58 H 92 11/19/18 13:18 98 22 11/19/18 13:10 96 11/19/18 13:02 36.3 C L 98 24 123/42 L 94 - Physical Exam General Appearance: positive: Moderate distress (On bipap, respiratory distress), Anxious, Other (Lethargic) Eyes Bilateral: positive: Normal inspection, PERRL, EOMI, No lid inflammation, Conjunctivae nml, No scleral icterus ENT: positive: ENT inspection nml, Pharynx nml, No signs of dehydration. negative: Purulent nasal drainage, Pharyngeal erythema, Oral lesions Neck: positive: Nml inspection, Thyroid nml, No JVD, Trachea midline. negative: Thyromegaly, Lymphadenopathy (R), Lymphadenopathy (L), Stiff neck, Carotid bruit, Tracheal deviation Respiratory: positive: Chest non-tender, No respiratory distress, Rales (Inspiratory crackles), Rhonchi (Middle lung bilaterally), Other (Decreased breath sounds bilaterally) Cardiovascular: positive: No murmur, No gallop, Tachycardia Peripheral Pulses: positive: 2+ Abdomen: positive: Non-tender, No organomegaly, Nml bowel sounds, No distention. negative: Guarding, Rebound, Hepatomegaly Back: positive: Nml inspection. negative: CVA tenderness (R), CVA tenderness (L) Skin: positive: Color nml, No rash, Warm, Dry. negative: Cyanosis, Diaphoresis, Pallor, Skin rash Extremities: positive: Non-tender, Full ROM, Nml appearance, No pedal edema Neurologic/Psychiatric: positive: CN's nml (2-12), Motor nml, Sensation nml, Mood/affect nml, Other (Lethargic) Conclusion/Plan - Problem List (1) Acute respiratory failure with hypoxia and hypercapnia Conclusion/Plan: Patient presented to her primary care physician's clinic with shortness of air. The patient's O2 sats were reported to be in the 60s and when EMS arrived they were 70s-80s. The patient was placed on a nonrebreather mask which she could not tolerate due to claustrophobia. She was on nasal cannula on arrival to the ER and saturating at 98%. While in the emergency department the patient continued to have labile oxygen saturations were oxygen saturation would drop. The patient recently had cough and fevers and was previously on antibiotics. In the emergency department the patient had significant respiratory distress she was tachypneic and unable to talk in complete sentences. The patient's ABG revealed hypercapnic respiratory failure along with hypoxia. The patient's PCO2 was 87 with a normal pH therefore this does not appear to be far from her baseline. The patient's chest x-ray revealed retrocardiac infiltrates concerning for pneumonia. Plan: Admit to intensive care unit Placed on BiPAP Repeat ABG Supplemental oxygen IV antibiotics with Levaquin and Zosyn Duo nebs [id number] times 24 hours then as needed Solu-Medrol 60 mg every 6 hours Monitor closely (2) CAP (community acquired pneumonia) Conclusion/Plan: The patient was having cough and fever at home and presented with cute respiratory failure and had hypoxemia and hypercapnia on presentation. The patient's chest x-ray does show retrocardiac opacity. Patient has history of end-stage COPD and pulmonary fibrosis with pulmonary hypertension and is chronically on 4 L of oxygen. On presentation she is significantly more hypoxic and in respiratory distress. She does not have a leukocytosis or fever on presentation. However given her history and findings we will treat for pneumonia and give her broad-spectrum antibiotics due to her history of COPD. Plan: IV Levaquin and Zosyn to cover Pseudomonas given history of COPD Duo nebs Steroids Supplemental oxygen BiPAP Qualifiers: Laterality: unspecified laterality Qualified Code(s): J18.9 - Pneumonia, unspecified organism (3) COPD exacerbation Conclusion/Plan: The patient presented to the emergency department with acute respiratory failure and had hypoxia and hypercapnia on presentation. The patient has end-stage COPD and appears to have pneumonia with COPD exacerbation. The patient will be treated for COPD exacerbation. Plan: BiPAP Supplemental oxygen Duo nebs [id number] then as needed after 24 hours Solu-Medrol 60 mg every 6 hours IV antibiotics with Zosyn and Levaquin (4) Metabolic encephalopathy Conclusion/Plan: Patient is lethargic on presentation to the intensive care unit. Apparently on arrival to the emergency department the patient was more lucid but unable to speak in complete sentences due to shortness of air. Currently the patient is difficult to arouse despite being on BiPAP. Likely the patient's metabolic encephalopathy is secondary to her hypercapnia. Continue BiPAP Continue to monitor mentation (5) Chronic pain Conclusion/Plan: The patient does have a history of chronic pain and is on extended release morphine and Roxanol. The patient will be continued on these medications while she is hospitalized. The patient will also be placed on as needed IV morphine. Qualifiers: Chronic pain type: chronic pain syndrome Qualified Code(s): G89.4 - Chronic pain syndrome (6) Anxiety Conclusion/Plan: The patient has a history of anxiety and is on Ativan at home. She is increasingly anxious on presentation likely due to her respiratory failure and distress. Patient will be continued on her home dose of Ativan and we will consider adding IV Ativan if needed. (7) Depression Conclusion/Plan: The patient has a history of depression and is on Zoloft at home. Currently her depression appears to be stable but she does appear quite anxious on examination. Likely secondary to her ongoing respiratory distress. The patient will be continued on her Zoloft while she is hospitalized. Qualifiers: Depression Type: unspecified Qualified Code(s): F32.9 - Major depressive disorder, single episode, unspecified (8) Hypertension Conclusion/Plan: The patient has a history of hypertension and blood pressure is in the normal range on presentation. The patient will be continued on her home dose of Norvasc and valsartan and. We will continue to monitor her blood pressure and titrate medications as needed. Qualifiers: Hypertension type: essential hypertension Qualified Code(s): I10 - Essent ial (primary) hypertension (9) Pulmonary hypertension Conclusion/Plan: The patient has a history of pulmonary hypertension with pulmonary fibrosis. The patient is on 4 L of supplemental oxygen. The patient will be given supplemental oxygen and is going to be on BiPAP while she is hospitalized. The patient is followed by palliative care in the outpatient setting and we will consult palliative care while she is hospitalized. - Lab Results Lab results reviewed: Yes Fish Bones: 11/19/18 13:45 11/19/18 13:45 Other Lab Results: Laboratory Results WBC 7.9 x10^3/uL (4.8-10.8) 11/19/18 13:45 RBC 3.94 10^6/uL (4.20-5.40) L 11/19/18 13:45 Hgb 11.6 g/dL (12.0-16.0) L 11/19/18 13:45 Hct 35.1 % (37.0-47.0) L 11/19/18 13:45 MCV 89.1 fL (81.0-99.0) 11/19/18 13:45 MCH 29.4 pg (27.0-31.0) 11/19/18 13:45 MCHC 33.0 g/dL (32.0-36.0) 11/19/18 13:45 RDW 15.7 % (12.0-15.0) H 11/19/18 13:45 Plt Count 274 10^3/uL (130-450) 11/19/18 13:45 MPV 6.2 fL (7.9-10.8) L 11/19/18 13:45 Neut # (Auto) 6.0 10^3/uL (1.5-6.6) 11/19/18 13:45 Lymph # (Auto) 1.2 10^3/uL (1.5-3.5) L 11/19/18 13:45 [place] # (Auto) 0.6 10^3/uL (0.0-1.0) 11/19/18 13:45 Eos # (Auto) 0.1 10^3/uL (0.0-0.7) 11/19/18 13:45 Baso # (Auto) 0.0 10^3/uL (0.0-0.1) 11/19/18 13:45 Absolute Nucleated RBC 0.00 x10^3/uL 11/19/18 13:45 Nucleated RBC % 0.0 /100WBC 11/19/18 13:45 VBG pH 7.341 (7.31-7.41) 11/19/18 13:45 VBG pCO2 87.1 mmHg (41-51) H 11/19/18 13:45 VBG pO2 36.0 mmHg (25-47) 11/19/18 13:45 VBG HCO3 46.0 mmol/L (23-28) H 11/19/18 13:45 VBG Total CO2 48.7 mmol/L (24-29) H 11/19/18 13:45 VBG O2 Saturation 68.9 % (60-80) 11/19/18 13:45 VBG Base Excess 16.2 mmol/L (-2 - +2) H 11/19/18 13:45 Sodium 136 mmol/L (135-145) 11/19/18 13:45 Potassium 3.6 mmol/L (3.5-5.0) 11/19/18 13:45 Chloride 86 mmol/L (101-111) L 11/19/18 13:45 Carbon Dioxide 41 mmol/L (21-32) H* 11/19/18 13:45 Anion Gap 9.0 (6-13) 11/19/18 13:45 BUN 7 mg/dL (6-20) 11/19/18 13:45 Creatinine 0.4 mg/dL (0.4-1.0) 11/19/18 13:45 Estimated GFR (MDRD) 159 (>89) 11/19/18 13:45 Glucose 125 mg/dL (70-100) H 11/19/18 13:45 Calcium 8.6 mg/dL (8.5-10.3) 11/19/18 13:45 Total Bilirubin 0.7 mg/dL (0.2-1.0) 11/19/18 13:45 AST 18 IU/L (10-42) 11/19/18 13:45 ALT 13 IU/L (10-60) 11/19/18 13:45 Alkaline Phosphatase 69 IU/L (42-121) 11/19/18 13:45 Troponin I < 0.04 ng/mL (<0.49) 11/19/18 13:45 Total Protein 6.5 g/dL (6.7-8.2) L 11/19/18 13:45 Albumin 3.3 g/dL (3.2-5.5) 11/19/18 13:45 Globulin 3.2 g/dL (2.1-4.2) 11/19/18 13:45 Albumin/Globulin Ratio 1.0 (1.0-2.2) 11/19/18 13:45 Lipase 22 U/L (22-51) 11/19/18 13:45 - Diagnostic Imaging Results Diagnostic Imaging Results: positive: Final report reviewed Diagnostic Imaging Results Comments: Chest x-ray Impression: 1. Retrocardiac opacities could represent developing infiltrates. 2. COPD. No effusions or pneumothorax. - EKG Results EKG Interpreted Independently: Yes Core Measures - Anticipated LOS I expect patient to be DC'd or transferred within 96 hours.: Yes - DVT/VTE - Prophylaxis VTE/DVT Prophylaxis med ordered at admit?: Yes
[2018-11-19] MEDS: IPRATROPIUM/ALBUTEROL 3 ML NEB INH SCH ×2 (15:57→23:45)
[2018-11-19] MEDS ORDERED: PIPERACILLIN/TAZOBACTAM 3.375 GM in SODIUM CHLORIDE 0.9% MINIBAG 100 ML IV SCH (16:00)
[2018-11-19] MEDS: levoFLOXacin 750 MG/150 ML 750 MG/150 ML BAG IV SCH (16:16)
[2018-11-19] MEDS: SODIUM CHLORIDE FLUSH 0.9% 10 ML SYRINGE IVP SCH (16:19)
[2018-11-19] MEDS ORDERED: LORazepam 2 MG/ML VIAL IVP PRN (17:08)
[2018-11-19] MEDS: PIPERACILLIN/TAZOBACTAM 3.375 GM in SODIUM CHLORIDE 0.9% MINIBAG 100 ML IV SCH (17:55)
[2018-11-19] MEDS: SACCHAROMYCES BOULARDII 250 MG CAPSULE PO SCH (17:58)
[2018-11-19] MEDS: methylPREDNISolone SUCCINATE 40 MG/ML VIAL IVP SCH (18:27)
[2018-11-19 18:56] LABS: VBG PH 7.417 (7.31-7.41)
[2018-11-19 18:57] LABS: VBG BASE EXCESS 10.9 mmol/L (-2 - +2); VBG PCO2 59.5 mmHg (41-51); VBG PO2 47.6 mmHg (25-47); VBG TOTAL CO2 39.3 mmol/L (24-29)
[2018-11-19] MEDS: ATORVASTATIN 10 MG TABLET PO SCH (21:43)
[2018-11-19] MEDS: FAMOTIDINE 20 MG/50 ML 50 ML IV SCH (21:44)
[2018-11-20] MEDS: PIPERACILLIN/TAZOBACTAM 3.375 GM in SODIUM CHLORIDE 0.9% MINIBAG 100 ML IV SCH ×5 (00:26→23:45)
[2018-11-20] MEDS: methylPREDNISolone SUCCINATE 40 MG/ML VIAL IVP SCH ×5 (00:26→23:46)
[2018-11-20] MEDS: CHLORHEXIDINE GLUCONATE 15 ML UDC PO SCH ×3 (03:02→22:40)
[2018-11-20] MEDS: SODIUM CHLORIDE FLUSH 0.9% 10 ML SYRINGE IVP SCH ×5 (03:03→23:46)
[2018-11-20] MEDS: MORPHINE 2 MG/ML CARPUJECT IVP PRN ×3 (03:26→16:23)
[2018-11-20] MEDS: guaiFENesin 100 MG/5 ML UDC PO PRN ×2 (03:26→12:58)
[2018-11-20] MEDS: IPRATROPIUM/ALBUTEROL 3 ML NEB INH PRN ×2 (03:46→16:30)
[2018-11-20 05:16] LABS: HGB - HEMOGLOBIN 10.9 g/dL (12.0-16.0); LYMPHOCYTES # (AUTO) 0.6 10^3/uL (1.5-3.5); MEAN CORPUSCULAR HEMOGLOBIN 29.2 pg (27.0-31.0); MEAN CORPUSCULAR HGB CONC 32.6 g/dL (32.0-36.0); MEAN CORPUSCULAR VOLUME 89.5 fL (81.0-99.0); MEAN PLATELET VOLUME 6.3 fL (7.9-10.8); MONOCYTES % (AUTO) 0.9 %; NEUTROPHILS # (AUTO) 4.9 10^3/uL (1.5-6.6); NEUTROPHILS % (AUTO) 89.1 %; PLT - PLATELET COUNT 273 10^3/uL (130-450); RED BLOOD COUNT 3.73 10^6/uL (4.20-5.40); RED CELL DISTRIBUTION WIDTH 15.3 % (12.0-15.0); WHITE BLOOD COUNT 5.6 x10^3/uL (4.8-10.8)
[2018-11-20 05:18] LABS: INR 1.2 (0.8-1.2); PT - PROTHROMBIN TIME 13.8 secs (9.9-12.6)
[2018-11-20 05:32] LABS: ALBUMIN 2.8 g/dL (3.2-5.5); ALBUMIN/GLOBULIN RATIO 0.8 (1.0-2.2); BILIRUBIN,TOTAL 0.3 mg/dL (0.2-1.0); CALCIUM 8.3 mg/dL (8.5-10.3); CREATININE 0.4 mg/dL (0.4-1.0); PHOSPHORUS 3.1 mg/dL (2.5-4.6); TOTAL PROTEIN 6.2 g/dL (6.7-8.2)
[2018-11-20] MEDS ORDERED: POTASSIUM CHLORIDE 20 MEQ TABLET PO ONE (06:49)
[2018-11-20] MEDS: IPRATROPIUM/ALBUTEROL 3 ML NEB INH SCH ×2 (07:45→11:40)
[2018-11-20] MEDS: SACCHAROMYCES BOULARDII 250 MG CAPSULE PO SCH ×2 (08:21→17:05)
[2018-11-20] MEDS: LOSARTAN 50 MG TABLET PO SCH (08:22)
[2018-11-20] MEDS: LORATADINE 10 MG TABLET PO SCH (08:23)
[2018-11-20] MEDS: FAMOTIDINE 20 MG/50 ML 50 ML IV SCH ×2 (08:27→21:01)
[2018-11-20] MEDS ORDERED: amLODIPine 5 MG TABLET PO SCH (09:00)
[2018-11-20] MEDS: SODIUM CHLORIDE FLUSH 0.9% 10 ML SYRINGE IVP PRN ×7 (09:23→18:47)
[2018-11-20] MEDS: ENOXAPARIN 40 MG/0.4 ML SYRINGE SUBQ SCH (09:30)
[2018-11-20] MEDS: SERTRALINE 50 MG TABLET PO SCH (11:07)
[2018-11-20] MEDS: POLYETHYLENE GLYCOL 3350 17 GM PACKET PO SCH (12:22)
[2018-11-20] MEDS: MORPHINE SOL 10 MG/0.5 ML SYRINGE PO PRN (12:58)
[2018-11-20] MEDS: levoFLOXacin 750 MG/150 ML 750 MG/150 ML BAG IV SCH (14:30)
--- NOTE | 2018-11-20 15:15 | PROVIDER PROGRESS NOTE ---
Assessment/Plan - Problem List (1) Acute respiratory failure with hypoxia and hypercapnia Assessment/Plan: The patient has improved bicarb on labs and fewer desaturations. She uses her Trilogy prn with a mouth tube and supplemental oxygen. Continue nebs, steroids iv and treating the underlying pneumonia. (2) COPD exacerbation Assessment/Plan: Patient has frequent exacerbations. She had told a previous caregiver that she doesn't want Palliative Care or Hospice Care because she actually "likes coming to the hospital". She has wanted to be a Full Code, despite having discussions many times about how severe her COPD is along with the presence of lung CA in RUL, but never had a biopsy. Continue nebs, steroids (3) CAP (community acquired pneumonia) Qualifiers: Laterality: unspecified laterality Qualified Code(s): J18.9 - Pneumonia, unspecified organism Assessment/Plan: Blood culture results pending. Will order a sputum culture. Continue empiric antibiotics with iv Levaquin and iv Zosyn, to cover Pseudomonas (due to her frequent hospitalizations). (4) Tachycardia Assessment/Plan: HR remains in 110's. Will change her Albuterol to Xopenex and change her Amlodipine for HTN, to Cardizem CD. (5) Hypertension Qualifiers: Hypertension type: essential hypertension Qualified Code(s): I10 - Essential (primary) hypertension Assessment/Plan: Continue meds and monitor VS. Will change to Amlodipine to Cardizem CD, for BP plus HR control. (6) Anxiety Assessment/Plan: Pt gets anxious when she has air hunger. Continue Ativan prn and could use Morphine when she is tachypneic with anxiety. (7) Depression Qualifiers: Depression Type: unspecified Qualified Code(s): F32.9 - Major depressive disorder, single episode, unspecified Assessment/Plan: Patient on her home dose of Zoloft. (8) Hypokalemia Assessment/Plan: Replace and monitor electrolytes daily. - Current Meds Current Meds: Current Medications Generic Name Dose Route Start Last Admin Trade Name Freq PRN Reason Stop Dose Admin Albuterol/Ipratropium 3 ml 11/19/18 14:20 11/20/18 03:46 Duoneb INH 3 ml RTQID PRN Administration Wheezing Atorvastatin Calcium 20 mg 11/19/18 21:00 11/19/18 21:43 Lipitor PO 20 mg QPM TERRY Administration Chlorhexidine Gluconate 15 ml 11/19/18 21:00 11/20/18 11:07 Peridex PO Not Given BID TERRY Enoxaparin Sodium 40 mg 11/20/18 09:00 11/20/18 09:30 Lovenox SUBQ 40 mg DAILY TERRY Administration Guaifenesin 100 mg 11/19/18 14:13 11/20/18 12:58 Robitussin Liquid PO 100 mg Q4HR PRN Administration Cough Famotidine 50 mls @ 100 mls/hr 11/19/18 21:00 11/20/18 08:57 Pepcid 20 Mg/50 Ml IV Infused BID TERRY Infusion Levofloxacin 750 mg in 150 mls @ 100 mls/hr 11/19/18 14:00 11/20/18 14:30 Levaquin 750 Mg/150 Ml IV 100 mls/hr Q24H TERRY Administration Piperacillin Sod/Tazobactam 100 mls @ 200 mls/hr 11/19/18 18:00 11/20/18 13:15 Sod 3.375 gm/ Sodium Chloride IV Infused Q6H TERRY Infusion Loratadine 10 mg 11/20/18 09:00 11/20/18 08:23 Claritin PO 10 mg DAILY TERRY Administration Losartan Potassium 50 mg 11/20/18 09:00 11/20/18 08:22 Cozaar PO 50 mg DAILY TERRY Administration Methylprednisolone 60 mg 11/19/18 18:00 11/20/18 12:24 Solu-Medrol (40mg Vial) IVP 60 mg Q6HR TERRY Administration Morphine Sulfate 5 mg 11/19/18 14:13 11/20/18 12:58 Roxanol PO 5 mg Q2H PRN Administration Shortness of Air/Wheezing Morphine Sulfate 2 mg 11/19/18 14:20 11/20/18 09:20 Morphine (Carpuject) IVP 2 mg Q2HR PRN Administration Pain 8 to 10 Polyethylene Glycol 17 gm 11/20/18 11:00 11/20/18 12:22 Miralax PO 17 gm DAILY TERRY Administration Saccharomyces Boulardii 250 mg 11/19/18 17:00 11/20/18 08:21 Florastor PO 250 mg BIDWM TERRY Administration Sertraline HCl 50 mg 11/20/18 09:00 11/20/18 11:07 Zoloft PO Not Given DAILY TERRY Sodium Chloride 10 ml 11/19/18 17:00 11/20/18 11:07 Normal Saline Flush 0.9% IVP Not Given 0100,0900,1700 TERRY Sodium Chloride 10 ml 11/19/18 14:20 11/20/18 13:14 Normal Saline Flush 0.9% IVP 10 ml PRN PRN Administration NEEDED PER PROVIDER ORDERS - Lab Result Fish Bone Diagrams: 11/20/18 04:43 11/20/18 04:43 - Additional Planning My Orders: My Active Orders 11/21/18 09:00 [email or web address] CD [Cardizem Cd] 180 mg PO DAILY Subjective - Subjective Patient Reports: Feeling Better Nursing Reports: Other (Very SOB and O2 sats drop to 80's% when she moved to get OOB to chair.) Objective Vital Signs: Vital Signs - 24 hr 11/19/18 11/19/18 11/19/18 15:29 15:30 15:45 Temperature 36.6 C Heart Rate 98 98 Heart Rate [ 86 Monitoring electrodes] Respiratory 20 20 Rate Blood Pressure 133/48 H 120/49 L [Right Brachial artery] O2 Saturation 94 94 11/19/18 11/19/18 11/19/18 16:00 16:15 16:30 Temperature Heart Rate 98 Heart Rate [ 88 87 Monitoring electrodes] Respiratory 20 20 23 Rate Blood Pressure 124/52 L 106/49 L [Right Brachial artery] O2 Saturation 93 94 11/19/18 11/19/18 11/19/18 17:00 18:00 19:00 Temperature Heart Rate Heart Rate [ 84 91 95 Monitoring electrodes] Respiratory 23 21 20 Rate Blood Pressure 112/48 L 132/57 H [Right Brachial artery] O2 Saturation 95 96 95 11/19/18 11/19/18 11/19/18 20:00 21:00 22:00 Temperature 37.1 C Heart Rate Heart Rate [ 97 86 89 Monitoring electrodes] Respiratory 21 24 26 H Rate Blood Pressure 136/51 H 122/59 L 127/74 [Right Brachial artery] O2 Saturation 92 95 94 11/19/18 11/19/18 11/20/18 23:00 23:45 00:00 Temperature 37.0 C Heart Rate 88 Heart Rate [ 88 86 Monitoring electrodes] Respiratory 22 20 25 H Rate Blood Pressure 126/83 H 116/57 L [Right Brachial artery] O2 Saturation 94 94 11/20/18 11/20/18 11/20/18 01:00 02:00 03:00 Temperature Heart Rate Heart Rate [ 86 86 85 Monitoring electrodes] Respiratory 22 23 24 Rate Blood Pressure 106/56 L 120/60 120/56 L [Right Brachial artery] O2 Saturation 93 94 92 11/20/18 11/20/18 11/20/18 03:47 04:00 05:00 Temperature 37.1 C Heart Rate 92 Heart Rate [ 90 87 Monitoring electrodes] Respiratory 20 26 H 26 H Rate Blood Pressure 122/56 L 116/57 L [Right Brachial artery] O2 Saturation 95 94 11/20/18 11/20/18 11/20/18 06:00 07:00 07:45 Temperature Heart Rate 98 Heart Rate [ 86 90 Monitoring electrodes] Respiratory 23 22 17 Rate Blood Pressure 133/57 H 113/55 L [Right Brachial artery] O2 Saturation 94 94 11/20/18 11/20/18 11/20/18 08:00 09:00 10:00 Temperature 37.1 C Heart Rate Heart Rate [ 99 109 H 106 H Monitoring electrodes] Respiratory 20 24 23 Rate Blood Pressure 147/83 H 131/57 H 111/54 L [Right Brachial artery] O2 Saturation 95 95 97 11/20/18 11/20/18 11/20/18 11:00 11:40 12:00 Temperature 37 C Heart Rate 106 H Heart Rate [ 97 116 H Monitoring electrodes] Respiratory 19 16 24 Rate Blood Pressure 116/47 L 134/56 H [Right Brachial artery] O2 Saturation 99 95 11/20/18 11/20/18 11/20/18 13:00 14:00 15:00 Temperature Heart Rate Heart Rate [ 121 H 112 H 116 H Monitoring electrodes] Respiratory 19 21 20 Rate Blood Pressure 145/71 H 129/55 L 145/65 H [Right Brachial artery] O2 Saturation 99 98 99 Oxygen O2 Source Nasal cannula Oxygen Flow Rate 4 I&O (Last 24 Hrs): Intake and Output Totals x24h 11/18/18 11/19/18 11/20/18 23:59 23:59 23:59 Intake Total 885 1310 Output Total 480 650 Balance 405 660 General: Alert, Oriented x3 HEENT: Mucous membr. moist/pink, Other (wearing nasal cannula, (+) pursed lip breathing) Neck: Supple, Other (Obese, cannot R/O (+) JVD) Neuro: Non Focal Cardiovascular: Regular rate, No murmurs Respiratory: Other (Diffusely poor air mvm, no wheezing, rales or rhonchi) Abdomen: Soft, No tenderness Extremities: No edema - Results Results: Laboratory Results WBC 5.6 x10^3/uL (4.8-10.8) 11/20/18 04:43 RBC 3.73 10^6/uL (4.20-5.40) L 11/20/18 04:43 Hgb 10.9 g/dL (12.0-16.0) L 11/20/18 04:43 Hct 33.4 % (37.0-47.0) L 11/20/18 04:43 MCV 89.5 fL (81.0-99.0) 11/20/18 04:43 MCH 29.2 pg (27.0-31.0) 11/20/18 04:43 MCHC 32.6 g/dL (32.0-36.0) 11/20/18 04:43 RDW 15.3 % (12.0-15.0) H 11/20/18 04:43 Plt Count 273 10^3/uL (130-450) 11/20/18 04:43 MPV 6.3 fL (7.9-10.8) L 11/20/18 04:43 Neut # (Auto) 4.9 10^3/uL (1.5-6.6) 11/20/18 04:43 Lymph # (Auto) 0.6 10^3/uL (1.5-3.5) L 11/20/18 04:43 [place] # (Auto) 0.0 10^3/uL (0.0-1.0) 11/20/18 04:43 Eos # (Auto) 0.0 10^3/uL (0.0-0.7) 11/20/18 04:43 Baso # (Auto) 0.0 10^3/uL (0.0-0.1) 11/20/18 04:43 Absolute Nucleated RBC 0.00 x10^3/uL 11/20/18 04:43 Nucleated RBC % 0.1 /100WBC 11/20/18 04:43 PT 13.8 secs (9.9-12.6) H 11/20/18 04:43 INR 1.2 (0.8-1.2) 11/20/18 04:43 VBG pH 7.417 (7.31-7.41) H 11/19/18 18:51 VBG pCO2 59.5 mmHg (41-51) H 11/19/18 18:51 VBG pO2 47.6 mmHg (25-47) H 11/19/18 18:51 VBG HCO3 37.5 mmol/L (23-28) H 11/19/18 18:51 VBG Total CO2 39.3 mmol/L (24-29) H 11/19/18 18:51 VBG O2 Saturation 84.8 % (60-80) H 11/19/18 18:51 VBG Base Excess 10.9 mmol/L (-2 - +2) H 11/19/18 18:51 Sodium 136 mmol/L (135-145) 11/20/18 04:43 Potassium 3.2 mmol/L (3.5-5.0) L 11/20/18 04:43 Chloride 88 mmol/L (101-111) L 11/20/18 04:43 Carbon Dioxide 38 mmol/L (21-32) H 11/20/18 04:43 Anion Gap 10.0 (6-13) 11/20/18 04:43 BUN 11 mg/dL (6-20) 11/20/18 04:43 Creatinine 0.4 mg/dL (0.4-1.0) 11/20/18 04:43 Estimated GFR (MDRD) 159 (>89) 11/20/18 04:43 Glucose 196 mg/dL (70-100) H 11/20/18 04:43 Calcium 8.3 mg/dL (8.5-10.3) L 11/20/18 04:43 Phosphorus 3.1 mg/dL (2.5-4.6) 11/20/18 04:43 Magnesium 2.0 mg/dL (1.7-2.8) 11/20/18 04:43 Total Bilirubin 0.3 mg/dL (0.2-1.0) 11/20/18 04:43 AST 13 IU/L (10-42) 11/20/18 04:43 ALT 12 IU/L (10-60) 11/20/18 04:43 Alkaline Phosphatase 66 IU/L (42-121) 11/20/18 04:43 Troponin I < 0.04 ng/mL (<0.49) 11/19/18 13:45 Total Protein 6.2 g/dL (6.7-8.2) L 11/20/18 04:43 Albumin 2.8 g/dL (3.2-5.5) L 11/20/18 04:43 Globulin 3.4 g/dL (2.1-4.2) 11/20/18 04:43 Albumin/Globulin Ratio 0.8 (1.0-2.2) L 11/20/18 04:43 Lipase 22 U/L (22-51) 11/19/18 13:45 - Procedures Procedures: Procedures EXCISION OF ABDOMEN SKIN, EXTERNAL APPROACH (03/27/17) RESECTION OF GALLBLADDER, PERCUTANEOUS ENDOSCOPIC APPROACH (03/27/17)
[2018-11-20] MEDS: LORazepam 0.5 MG TABLET PO PRN (17:14)
[2018-11-20] MEDS: MORPHINE ER 15 MG TABLET PO PRN (21:00)
[2018-11-20] MEDS: ATORVASTATIN 10 MG TABLET PO SCH (21:01)
[2018-11-20] MEDS: LEVALBUTEROL 1.25 MG/3 ML NEB INH PRN (21:58)
[2018-11-21 05:53] LABS: BASOPHILS % (AUTO) 0.1 %; HGB - HEMOGLOBIN 10.8 g/dL (12.0-16.0); LYMPHOCYTES # (AUTO) 0.7 10^3/uL (1.5-3.5); LYMPHOCYTES % (AUTO) 5.4 %; MEAN CORPUSCULAR HGB CONC 32.1 g/dL (32.0-36.0); MEAN CORPUSCULAR VOLUME 90.4 fL (81.0-99.0); MEAN PLATELET VOLUME 6.3 fL (7.9-10.8); MONOCYTES # (AUTO) 0.2 10^3/uL (0.0-1.0); MONOCYTES % (AUTO) 1.7 %; NEUTROPHILS # (AUTO) 11.2 10^3/uL (1.5-6.6); NEUTROPHILS % (AUTO) 92.8 %; PLT - PLATELET COUNT 329 10^3/uL (130-450); RED CELL DISTRIBUTION WIDTH 15.6 % (12.0-15.0); WHITE BLOOD COUNT 12.1 x10^3/uL (4.8-10.8)
[2018-11-21] MEDS: methylPREDNISolone SUCCINATE 40 MG/ML VIAL IVP SCH ×3 (05:58→17:39)
[2018-11-21] MEDS: PIPERACILLIN/TAZOBACTAM 3.375 GM in SODIUM CHLORIDE 0.9% MINIBAG 100 ML IV SCH ×3 (05:58→17:46)
[2018-11-21 06:02] LABS: ALBUMIN 2.8 g/dL (3.2-5.5); ALBUMIN/GLOBULIN RATIO 0.9 (1.0-2.2); BILIRUBIN,TOTAL 0.3 mg/dL (0.2-1.0); CALCIUM 8.3 mg/dL (8.5-10.3); CREATININE 0.5 mg/dL (0.4-1.0); PHOSPHORUS 3.2 mg/dL (2.5-4.6); TOTAL PROTEIN 5.8 g/dL (6.7-8.2)
[2018-11-21] MEDS: LEVALBUTEROL 1.25 MG/3 ML NEB INH PRN ×3 (07:40→23:09)
[2018-11-21] MEDS: MORPHINE SOL 10 MG/0.5 ML SYRINGE PO PRN ×3 (07:53→17:58)
[2018-11-21] MEDS: SACCHAROMYCES BOULARDII 250 MG CAPSULE PO SCH ×2 (07:57→17:02)
--- NOTE | 2018-11-21 08:01 | PROVIDER PROGRESS NOTE ---
Subjective - Prog Note Date Prog Note Date: 11/21/18 Prog Note Time: 11:13 - Subjective Pt reports feeling: No change Subjective: The patient still complains of significant dyspnea on exertion with even minimal activity. Just rolling her over in bed causes her to desaturate into the 70s and 80s on 4 L. Takes 20 minutes to recover, and then rolling over to the other side to finish bathing her results and another episode of desaturation. She is severely dyspneic on exertion just transitioning to sit up to go to a bedside commode. Tachycardia has come down with the change in the Cardizem. Is supposed to be in the 120s she is now 90s-110. Blood pressure has been holding with that and this morning she is 128/57. Cough is with any exertion. Nonproductive. There were no blood cultures done on admission, and she is been unable to produce any sputum. She still on empiric therapy with Zosyn and Levaquin. She is also on IV steroids and nebulizers. At rest she is on 3 L. At home she is usually on 4 L. So with some mild improvement. But again, desaturates quickly with minimal exertion. Current Medications - Current Medications Current Medications: Active Medications Acetaminophen (Tylenol) 650 mg PO Q4HR PRN PRN Reason: Pain 1 to 4 Atorvastatin Calcium (Lipitor) 20 mg PO QPM COUNTS INCLUDE 234 BEDS AT THE [facility] Last Admin: 11/20/18 21:01 Dose: 20 mg Chlorhexidine Gluconate (Peridex) 15 ml PO BID COUNTS INCLUDE 234 BEDS AT THE [facility] Last Admin: 11/21/18 09:02 Dose: Not Given Diltiazem HCl (Cardizem Cd) 180 mg PO DAILY COUNTS INCLUDE 234 BEDS AT THE [facility] Last Admin: 11/21/18 08:47 Dose: 180 mg Enoxaparin Sodium (Lovenox) 40 mg SUBQ DAILY COUNTS INCLUDE 234 BEDS AT THE [facility] Last Admin: 11/21/18 09:28 Dose: 40 mg Guaifenesin (Robitussin Liquid) 100 mg PO Q4HR PRN PRN Reason: Cough Last Admin: 11/20/18 12:58 Dose: 100 mg Piperacillin Sod/Tazobactam (Sod 3.375 gm/ Sodium Chloride) 100 mls @ 200 mls/hr IV Q6H COUNTS INCLUDE 234 BEDS AT THE [facility] Last Infusion: 11/21/18 06:30 Dose: Infused Levalbuterol HCl (Xopenex) 1.25 mg INH Q4H PRN PRN Reason: Shortness of Air/Wheezing Last Admin: 11/21/18 07:40 Dose: 1.25 mg Levofloxacin (Levaquin) 750 mg PO DAILY COUNTS INCLUDE 234 BEDS AT THE [facility] Loratadine (Claritin) 10 mg PO DAILY COUNTS INCLUDE 234 BEDS AT THE [facility] Last Admin: 11/21/18 08:48 Dose: 10 mg Lorazepam (Ativan) 0.5 mg PO Q8H PRN PRN Reason: Anxiety Last Admin: 11/21/18 09:45 Dose: 0.5 mg Lorazepam (Ativan Inj (Vial)) 0.5 mg IVP Q2H PRN PRN Reason: Anxiety Losartan Potassium (Cozaar) 50 mg PO DAILY COUNTS INCLUDE 234 BEDS AT THE [facility] Last Admin: 11/21/18 08:47 Dose: 50 mg Methylprednisolone (Solu-Medrol (40mg Vial)) 60 mg IVP Q6HR COUNTS INCLUDE 234 BEDS AT THE [facility] Last Admin: 11/21/18 05:58 Dose: 60 mg Morphine Sulfate () 15 mg PO BID PRN PRN Reason: Shortness of Air/Wheezing Last Admin: 11/21/18 09:45 Dose: 15 mg Morphine Sulfate (Roxanol) 5 mg PO Q2H PRN PRN Reason: Shortness of Air/Wheezing Last Admin: 11/21/18 07:53 Dose: 5 mg Morphine Sulfate (Morphine (Carpuject)) 2 mg IVP Q2HR PRN PRN Reason: Pain 8 to 10 Last Admin: 11/20/18 16:23 Dose: 2 mg Ondansetron HCl (Zofran Inj) 4 mg IVP Q6HR PRN PRN Reason: Nausea / Vomiting Polyethylene Glycol (Miralax) 17 gm PO DAILY COUNTS INCLUDE 234 BEDS AT THE [facility] Last Admin: 11/21/18 08:48 Dose: 17 gm Prochlorperazine Edisylate (Compazine Inj) 10 mg IVP Q6HR PRN PRN Reason: Nausea / Vomiting Promethazine HCl (Phenergan Inj) 25 mg IM Q6HR PRN PRN Reason: Nausea / Vomiting Saccharomyces Boulardii (Florastor) 250 mg PO BIDWM COUNTS INCLUDE 234 BEDS AT THE [facility] Last Admin: 11/21/18 07:57 Dose: 250 mg Sertraline HCl (Zoloft) 50 mg PO DAILY COUNTS INCLUDE 234 BEDS AT THE [facility] Last Admin: 11/21/18 09:02 Dose: Not Given Sodium Chloride (Normal Saline Flush 0.9%) 10 ml IVP 0100,0900,1700 COUNTS INCLUDE 234 BEDS AT THE [facility] Last Admin: 11/21/18 09:28 Dose: 10 ml Sodium Chloride (Normal Saline Flush 0.9%) 10 ml IVP PRN PRN PRN Reason: NEEDED PER PROVIDER ORDERS Last Admin: 11/20/18 18:47 Dose: 10 ml Albuterol Sulfate [Proair Hfa Inhaler] 1 puffs INH Q6H PRN 08/31/16 Atorvastatin Calcium 20 mg PO QPM 07/18/18 amLODIPine [Norvasc] 5 mg PO DAILY 07/18/18 Morphine Sulfate [Morphine Sulf Oral (Roxanol)] 5 mg PO Q2H PRN 10/19/18 Polyethylene Glycol 3350 [Miralax] 17 g PO DAILY 10/19/18 Loratadine 1 cap PO DAILY PRN 10/30/18 Valsartan [Diovan] 1 tab PO DAILY 10/30/18 Albuterol 2.5 mg INH Q4H PRN 11/19/18 Fluticasone [Flonase] 1 sprays PAULINE BID PRN 11/19/18 Furosemide 20 mg PO DAILY 11/19/18 Potassium Chloride 10 meq PO DAILY 11/19/18 dilTIAZem HCl [Diltiazem 24Hr ER] 120 mg PO DAILY 11/19/18 Objective - Vital Signs/Intake & Output Reviewed Vital Signs: Yes Vital Signs: Vital Signs x48h Temp Pulse Pulse Resp BP Pulse Ox 11/21/18 07:40 109 H 18 11/21/18 07:00 91 17 127/62 95 11/21/18 06:00 92 21 121/66 94 11/21/18 05:00 111 H 19 140/68 H 92 11/21/18 04:00 36.9 C 95 20 124/64 95 11/21/18 03:00 107 H 19 128/75 95 11/21/18 01:57 100 19 126/62 94 11/21/18 01:00 102 H 19 129/61 94 11/21/18 00:00 36.7 C 101 H 19 127/56 L 94 Intake & Output: Intake & Output 11/18/18 11/19/18 11/20/18 11/21/18 23:59 23:59 23:59 23:59 Intake Total 885 2220 400 Output Total 480 800 700 Balance 405 1420 -300 - Objective General Appearance: positive: Alert, Moderate distress (This is the third time I have met this unfortunate patient. This lady is pursed lip breathing even at rest. Sentence structures are always truncated because she manages to get out only 2-3 words before having to take another breath. This is an exam that is remain unchanged since I have known her for the last few months.) Eyes Bilateral: positive: PERRL, EOMI ENT: positive: Pharynx nml Neck: negative: Stiff neck, Carotid bruit Respiratory: positive: Chest non-tender, Wheezes (Very faint, scattered throughout bilateral lungs. But for the most part this woman has very very quiet lungs with almost no breath sounds diffusely). negative: Rales, Rhonchi Cardiovascular: positive: Regular rate & rhythm, Tachycardia (Slowed down to the 90s and 110). negative: JVD present, Gallop/S4 Abdomen: positive: Non-tender, Nml bowel sounds, No distention. negative: Tenderness Skin: positive: Warm, Dry Extremities: positive: Pedal edema (Mild) Neurologic/Psychiatric: positive: Oriented x3, CN's nml (2-12), Motor nml (But exertional dyspnea severely limits her ability to be able to sit to transfer to a sitting position or standing position) - Lab Results Fish Bones: 11/21/18 05:05 11/21/18 05:05 Other Labs: Lab Results x24hrs 11/21/18 11/21/18 Range/Units 05:05 05:05 WBC 12.1 H (4.8-10.8) x10^3/uL RBC 3.70 L (4.20-5.40) 10^6/uL Hgb 10.8 L (12.0-16.0) g/dL Hct 33.5 L (37.0-47.0) % MCV 90.4 (81.0-99.0) fL MCH 29.0 (27.0-31.0) pg MCHC 32.1 (32.0-36.0) g/dL RDW 15.6 H (12.0-15.0) % Plt Count 329 (130-450) 10^3/uL MPV 6.3 L (7.9-10.8) fL Neut # (Auto) 11.2 H (1.5-6.6) 10^3/uL Lymph # (Auto) 0.7 L (1.5-3.5) 10^3/uL [place] # (Auto) 0.2 (0.0-1.0) 10^3/uL Eos # (Auto) 0.0 (0.0-0.7) 10^3/uL Baso # (Auto) 0.0 (0.0-0.1) 10^3/uL Absolute Nucleated RBC 0.00 x10^3/uL Nucleated RBC % 0.0 /100WBC Sodium 136 (135-145) mmol/L Potassium 3.9 (3.5-5.0) mmol/L Chloride 91 L (101-111) mmol/L Carbon Dioxide 37 H (21-32) mmol/L Anion Gap 8.0 (6-13) BUN 12 (6-20) mg/dL Creatinine 0.5 (0.4-1.0) mg/dL Estimated GFR (MDRD) 123 (>89) Glucose 190 H (70-100) mg/dL Calcium 8.3 L (8.5-10.3) mg/dL Phosphorus 3.2 (2.5-4.6) mg/dL Magnesium 2.0 (1.7-2.8) mg/dL Total Bilirubin 0.3 (0.2-1.0) mg/dL AST 20 (10-42) IU/L ALT 11 (10-60) IU/L Alkaline Phosphatase 51 (42-121) IU/L Total Protein 5.8 L (6.7-8.2) g/dL Albumin 2.8 L (3.2-5.5) g/dL Globulin 3.0 (2.1-4.2) g/dL Albumin/Globulin Ratio 0.9 L (1.0-2.2) ABX Reporting Has patient been on IV antibiotics over the past 48 hours?: Yes Assessment/Plan - Problem List (1) Acute respiratory failure with hypoxia and hypercapnia Impression: The patient has improved bicarb on labs and fewer desaturations. She uses her Trilogy prn with a mouth tube and supplemental oxygen. Continue nebs, steroids iv and treating the underlying pneumonia. Day # 3 today. Transfer from ICU to med surg. (2) COPD exacerbation with end stage, terminal COPD and lung masses presumed to be lung cancer. Assessment/Plan: Patient has frequent exacerbations. She had told a previous caregiver that she doesn't want Palliative Care or Hospice Care because she actually "likes coming to the hospital". She has wanted to be a Full Code, despite having discussions many times about how severe her COPD is along with the presence of lung CA in RUL, but never had a biopsy. She initially said that she wanted her son to decide whether she was going to be full code or not. That son is Ronnie. But he has been yang with our service in the past and said that he really cannot make this decisions for his mom and does not want to be the person to decide. So now it is her daughter Ivette that she is asking to make these decisions. I have spoken to her power of double end tenon operator, Tameka Montrell, who is her sister. When I asked Ms. Stock what is her understanding of her sister's condition. She said that Ms. Gurrola is told her that she has emphysema. And she is waiting for her doctors to stabilize her so that she can get one lung removed. I brought Ms. Stock up to date with regards to her sister's condition. I asked Ms. Stock why Ms. Gurrola would not share with her her true prognosis and disease state, and she guesses because Ms. Gurrola wants to go home, and Ms. Stock may make her stay. We then talked about palliative care. Ms. Gurrola had not told her sister that she has had a palliative care consult and continues to be seen by the palliative care service. We are hoping to make Ms. Gurrola as comfortable as possible, reduce the amount of admission she has, and with her terminal prognosis in mind, I have strongly recommended hospice transition. Ms. Stock was not aware of any of this. As such, she will leave work today to come visit her sister here at the hospital. She would like to have a small family conference between me, Ms. Gurrola, and her to figure out what to do within the family. Continue nebs, steroids. Palliative Care notes reviewed. They continue to see her at home and try to help daughter, Theresa, to help take care of mom with Home Health and inhome care providers. One care provider has already quit because of the stress. (3) CAP (community acquired pneumonia) Qualifiers: Laterality: unspecified laterality Qualified Code(s): J18.9 - Pneumonia, unspecified organism Assessment/Plan: Blood cultures were not ordered in ER. sputum culture ordered and not collected. Continue empiric antibiotics with iv Levaquin and iv Zosyn, Day #3, to cover Pseudomonas (due to her frequent hospitalizations). Will switch to po levaquin. (4) Tachycardia Assessment/Plan: HR remains in 110's. Her Albuterol was changed to Xopenex and Amlodipine for HTN, changed to Cardizem CD. But I do anticipate a continued tachycardia in the face of end stage COPD. (5) Hypertension Qualifiers: Hypertension type: essential hypertension Qualified Code(s): I10 - Essential (primary) hypertension Assessment/Plan: Continue meds and monitor VS. She is 120's/60's since midnight. Once 142 systolic at 5 am but back down again. Changed from Amlodipine to Cardizem CD, for BP plus HR control. Losartan continued. (6) Anxiety Assessment/Plan: Pt gets anxious when she has air hunger. Continue Ativan prn and could use Morphine when she is tachypneic with anxiety. (7) Depression Qualifiers: Depression Type: unspecified Qualified Code(s): F32.9 - Major depressive disorder, single episode, unspecified Assessment/Plan: Patient on her home dose of Zoloft. (8) Hypokalemia Assessment/Plan: Replace and monitor electrolytes daily.
[2018-11-21] MEDS: diltiaZEM CD 180 MG CAPSULE PO SCH (08:47)
[2018-11-21] MEDS: LOSARTAN 50 MG TABLET PO SCH (08:47)
[2018-11-21] MEDS: POLYETHYLENE GLYCOL 3350 17 GM PACKET PO SCH (08:48)
[2018-11-21] MEDS: LORATADINE 10 MG TABLET PO SCH (08:48)
[2018-11-21] MEDS: FAMOTIDINE 20 MG/50 ML 50 ML IV SCH (08:54)
[2018-11-21] MEDS: SERTRALINE 50 MG TABLET PO SCH (09:02)
[2018-11-21] MEDS: CHLORHEXIDINE GLUCONATE 15 ML UDC PO SCH (09:02)
[2018-11-21] MEDS: SODIUM CHLORIDE FLUSH 0.9% 10 ML SYRINGE IVP SCH ×2 (09:28→17:02)
[2018-11-21] MEDS: ENOXAPARIN 40 MG/0.4 ML SYRINGE SUBQ SCH (09:28)
[2018-11-21] MEDS: LORazepam 0.5 MG TABLET PO PRN ×2 (09:45→23:17)
[2018-11-21] MEDS: MORPHINE ER 15 MG TABLET PO PRN ×2 (09:45→23:17)
--- NOTE | 2018-11-21 09:50 | CONSULTATION NOTE ---
Palliative Care Follow Up - Referral Referring Provider: Kirti Phillips Time of Visit: 11/21/2018. 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 PET and MRI were inconclusive for cancer that revealed no brain metastases. A lung biopsy was not able to be performed since, so there is no cancer diagnosis. Patient has had increasingly frequent hospitalizations and ED visits since last summer. The most recent prior to this current hospitalization was October 30 for COPD exacerbation and bronchitis. The patient is back in in ICU on 11/19/18, with severe SOA and O2 desaturation. She was extremely desaturated in the ED, tachypneic and in respiratory distress. She doesn't tolerate the rebreather very well but was eventually placed on a BiPAP prior to transfer to ICU. She is now back on 4L O2 via nasal canula and using Trilogy. She remains very SOA and weak, becomes exhausted and dyspneic with any exertion and with minimal nursing care. She has no reserves. Despite this, patient states she wants to be discharged home, she does not want transfer to nursing facility. She remains full code. Social History - Living Situation Living arrangement: At home Living Situation: With family, With caregiver(s) Support System: Daughter Ivette is currently staying at the patient's apartment to help out with care. She has a LAURA caregiver, but we were informed today the current LAURA caregiver has quit. She is also on Home Health nursing with [facility]. Medications/Allergies - Medications Active Medication List: Active Medications Acetaminophen (Tylenol) 650 mg PO Q4HR PRN PRN Reason: Pain 1 to 4 Atorvastatin Calcium (Lipitor) 20 mg PO QPM [facility] Last Admin: 11/20/18 21:01 Dose: 20 mg Chlorhexidine Gluconate (Peridex) 15 ml PO BID [facility] Last Admin: 11/21/18 09:02 Dose: Not Given Diltiazem HCl (Cardizem Cd) 180 mg PO DAILY [facility] Last Admin: 11/21/18 08:47 Dose: 180 mg Enoxaparin Sodium (Lovenox) 40 mg SUBQ DAILY [facility] Last Admin: 11/21/18 09:28 Dose: 40 mg Guaifenesin (Robitussin Liquid) 100 mg PO Q4HR PRN PRN Reason: Cough Last Admin: 11/20/18 12:58 Dose: 100 mg Famotidine (Pepcid 20 Mg/50 Ml) 50 mls @ 100 mls/hr IV BID [facility] Last Infusion: 11/21/18 09:28 Dose: Infused Levofloxacin (Levaquin 750 Mg/150 Ml) 750 mg in 150 mls @ 100 mls/hr IV Q24H [facility] Last Infusion: 11/20/18 16:06 Dose: Infused Piperacillin Sod/Tazobactam (Sod 3.375 gm/ Sodium Chloride) 100 mls @ 200 mls/hr IV Q6H [facility] Last Infusion: 11/21/18 06:30 Dose: Infused Levalbuterol HCl (Xopenex) 1.25 mg INH Q4H PRN PRN Reason: Shortness of Air/Wheezing Last Admin: 11/21/18 07:40 Dose: 1.25 mg Loratadine (Claritin) 10 mg PO DAILY [facility] Last Admin: 11/21/18 08:48 Dose: 10 mg Lorazepam (Ativan) 0.5 mg PO Q8H PRN PRN Reason: Anxiety Last Admin: 11/20/18 17:14 Dose: 0.5 mg Lorazepam (Ativan Inj (Vial)) 0.5 mg IVP Q2H PRN PRN Reason: Anxiety Losartan Potassium (Cozaar) 50 mg PO DAILY [facility] Last Admin: 11/21/18 08:47 Dose: 50 mg Methylprednisolone (Solu-Medrol (40mg Vial)) 60 mg IVP Q6HR [facility] Last Admin: 11/21/18 05:58 Dose: 60 mg Morphine Sulfate () 15 mg PO BID PRN PRN Reason: Shortness of Air/Wheezing Last Admin: 11/20/18 21:00 Dose: 15 mg Morphine Sulfate (Roxanol) 5 mg PO Q2H PRN PRN Reason: Shortness of Air/Wheezing Last Admin: 11/21/18 07:53 Dose: 5 mg Morphine Sulfate (Morphine (Carpuject)) 2 mg IVP Q2HR PRN PRN Reason: Pain 8 to 10 Last Admin: 11/20/18 16:23 Dose: 2 mg Ondansetron HCl (Zofran Inj) 4 mg IVP Q6HR PRN PRN Reason: Nausea / Vomiting Polyethylene Glycol (Miralax) 17 gm PO DAILY [facility] Last Admin: 11/21/18 08:48 Dose: 17 gm Prochlorperazine Edisylate (Compazine Inj) 10 mg IVP Q6HR PRN PRN Reason: Nausea / Vomiting Promethazine HCl (Phenergan Inj) 25 mg IM Q6HR PRN PRN Reason: Nausea / Vomiting Saccharomyces Boulardii (Florastor) 250 mg PO BIDWM [facility] Last Admin: 11/21/18 07:57 Dose: 250 mg Sertraline HCl (Zoloft) 50 mg PO DAILY [facility] Last Admin: 11/21/18 09:02 Dose: Not Given Sodium Chloride (Normal Saline Flush 0.9%) 10 ml IVP 0100,0900,1700 [facility] Last Admin: 11/21/18 09:28 Dose: 10 ml Sodium Chloride (Normal Saline Flush 0.9%) 10 ml IVP PRN PRN PRN Reason: NEEDED PER PROVIDER ORDERS Last Admin: 11/20/18 18:47 Dose: 10 ml Albuterol Sulfate [Proair Hfa Inhaler] 1 puffs INH Q6H PRN 08/31/16 Atorvastatin Calcium 20 mg PO QPM 07/18/18 amLODIPine [Norvasc] 5 mg PO DAILY 07/18/18 Morphine Sulfate [Morphine Sulf Oral (Roxanol)] 5 mg PO Q2H PRN 10/19/18 Polyethylene Glycol 3350 [Miralax] 17 g PO DAILY 10/19/18 Loratadine 1 cap PO DAILY PRN 10/30/18 Valsartan [Diovan] 1 tab PO DAILY 10/30/18 Albuterol 2.5 mg INH Q4H PRN 11/19/18 Fluticasone [Flonase] 1 sprays PAULINE BID PRN 11/19/18 Furosemide 20 mg PO DAILY 11/19/18 Potassium Chloride 10 meq PO DAILY 11/19/18 dilTIAZem HCl [Diltiazem 24Hr ER] 120 mg PO DAILY 11/19/18 - Allergies Allergies/Adverse Reactions: Allergies Allergy/AdvReac Type Severity Reaction Status Date / Time No Known Drug Allergies Allergy Verified 11/19/18 13:09 Review of Systems - Constitutional Constitutional: reports: Fatigue, Weakness, Other (Facial swelling, puffiness) - Ears, Nose & Throat Ears, Nose & Throat: reports: Postnasal drainage - Cardiovascular Cardiovascular: reports: Exertional dyspnea, Decr. exercise tolerance - Respiratory Respiratory: reports: SOB at rest, SOB with exertion - Musculoskeletal Musculoskeletal: reports: Transfer issues - Neurological Neurological: reports: General weakness, Memory problems - Psychiatric Psychiatric: reports: Anxiety - Other Findings Other Findings: Limited ROS Physical Exam - Vital Signs Vital Signs: Vital Signs x48h Temp Pulse Pulse Resp BP Pulse Ox 11/21/18 09:00 109 H 20 133/75 H 95 11/21/18 08:00 98.1 F 110 H 24 133/66 H 95 11/21/18 07:40 109 H 18 11/21/18 07:00 91 17 127/62 95 11/21/18 06:00 92 21 121/66 94 11/21/18 05:00 111 H 19 140/68 H 92 11/21/18 04:00 98.4 F 95 20 124/64 95 11/21/18 03:00 107 H 19 128/75 95 11/21/18 01:57 100 19 126/62 94 - Physical Exam General Appearance: positive: Moderate distress, Other (difficulty speaking, persistent SOA) Eyes Bilateral: positive: EOMI, No lid inflammation, Conjunctivae nml, No scleral icterus ENT: positive: No signs of dehydration Neck: positive: Trachea midline Respiratory: positive: Chest non-tender, No respiratory distress, Diminished throughout Skin: positive: Pallor Extremities: positive: Nml appearance, No pedal edema Neurologic/Psychiatric: positive: Oriented x3, Mood/affect nml Palliative Care - POLST Patient has POLST: No Performance Status: significantly increased SOA intolerant of any exertion, normal nursing care, movement unable to speak in normal sentences, reposition self, perform care, or do transfer - Palliative Care Discussion: Daughter in law spoke to Hospital RN about her concerns that Ivette, patient's daughter who is currently living with the patient, is smoking cigarettes in the patient's apartment, and is also using meth in the apartment. Patient confirms she wants to discharge home and not to a nursing facility, she feels better at home. When asked if she thinks her [facility]UR[facility] caregiver and daughter will be able to change her briefs in bed and take care of her to the level she needs, she appears uncertain, says she needs to talk to her daughter about it, which is her normal response to questions that address advance care planning. She states again that she needs to speak with her daughter about her full code status and whether she would agree with intubation and a "breathing machine." She is uncertain about intubation, and doesn't respond to direct questions about what she understands about it. She has declined to provide the oncology social worker with contact details for the oncology social worker to contact the daughter. Patient remains without a POLST, undecided about intubation but at full code. She does retain medical decision making capacity, despite poor understanding of procedures and consequences. At this time her decision is to return home despite not having an appropriate level of support at home and despite advice that [id number] nursing care at a SNF/LTC would be more appropriate.. Patient's [facility] correctional case records supervisor, Berta, called in the afternoon with an update that the patient's [facility] weekday caregiver has quit, therefore patient is without [facility] caregiver support at home at this time. [facility] is providing nursing services for the the patient when she is at home. They are in contact with hospital SW and Palliative Care. Results - Lab Results Fish Bones: 11/21/18 05:05 11/21/18 05:05 Lab and Imaging Results: Lab Results x24hrs 11/21/18 11/21/18 Range/Units 05:05 05:05 WBC 12.1 H (4.8-10.8) x10^3/uL RBC 3.70 L (4.20-5.40) 10^6/uL Hgb 10.8 L (12.0-16.0) g/dL Hct 33.5 L (37.0-47.0) % MCV 90.4 (81.0-99.0) fL MCH 29.0 (27.0-31.0) pg MCHC 32.1 (32.0-36.0) g/dL RDW 15.6 H (12.0-15.0) % Plt Count 329 (130-450) 10^3/uL MPV 6.3 L (7.9-10.8) fL Neut # (Auto) 11.2 H (1.5-6.6) 10^3/uL Lymph # (Auto) 0.7 L (1.5-3.5) 10^3/uL Bullitt # (Auto) 0.2 (0.0-1.0) 10^3/uL Eos # (Auto) 0.0 (0.0-0.7) 10^3/uL Baso # (Auto) 0.0 (0.0-0.1) 10^3/uL Absolute Nucleated RBC 0.00 x10^3/uL Nucleated RBC % 0.0 /100WBC Sodium 136 (135-145) mmol/L Potassium 3.9 (3.5-5.0) mmol/L Chloride 91 L (101-111) mmol/L Carbon Dioxide 37 H (21-32) mmol/L Anion Gap 8.0 (6-13) BUN 12 (6-20) mg/dL Creatinine 0.5 (0.4-1.0) mg/dL Estimated GFR (MDRD) 123 (>89) Glucose 190 H (70-100) mg/dL Calcium 8.3 L (8.5-10.3) mg/dL Phosphorus 3.2 (2.5-4.6) mg/dL Magnesium 2.0 (1.7-2.8) mg/dL Total Bilirubin 0.3 (0.2-1.0) mg/dL AST 20 (10-42) IU/L ALT 11 (10-60) IU/L Alkaline Phosphatase 51 (42-121) IU/L Total Protein 5.8 L (6.7-8.2) g/dL Albumin 2.8 L (3.2-5.5) g/dL Globulin 3.0 (2.1-4.2) g/dL Albumin/Globulin Ratio 0.9 L (1.0-2.2) Impression and Recommendations - Palliative Care Impression: 68-year-old female with end-stage COPD on 4L O2, pulmonary fibrosis, pulmonary hypertension, likely lung cancer but unable to obtain biopsy to confirm, increasingly frequent visits to ED/hospital for COPD exacerbation and respiratory infections. Recommendations/Counseling Done: Advance care planning: Patient remains full code by choice/default. She desires to return home at discharge despite medical advice to transfer to nursing facility. Patient is currently without [facility] caregiving support, her daughter is living with her and helping out. A family member (patient's daughter in law) has expressed concern to one hospital nurse that patient's daughter is smoking cigarettes and actively using meth while living in the patient's apartment. SW recommends she notify [facility]. [facility] is providing RN oversight and in contact with hospital SW. Palliative care will continue to provide support and monitoring and will follow up with patient at home after discharge. Time Spent: 15 minutes were spent with more than 50% of the time spent on counseling, education, and duration of care with social work, nursing, and [facility] correctional case records supervisor.
[2018-11-21] MEDS: SODIUM CHLORIDE FLUSH 0.9% 10 ML SYRINGE IVP PRN ×4 (12:08→18:47)
[2018-11-21] MEDS: levoFLOXacin 250 MG TABLET PO SCH (14:21)
[2018-11-21] MEDS: ATORVASTATIN 10 MG TABLET PO SCH (21:09)
[2018-11-21] MEDS ORDERED: FLUTICASONE NASAL SPRAY NAS PRN (21:26)
[2018-11-22 05:25] LABS: LYMPHOCYTES # (AUTO) 0.6 10^3/uL (1.5-3.5); LYMPHOCYTES % (AUTO) 6.1 %; MEAN CORPUSCULAR HEMOGLOBIN 28.8 pg (27.0-31.0); MEAN CORPUSCULAR HGB CONC 31.7 g/dL (32.0-36.0); MEAN PLATELET VOLUME 6.3 fL (7.9-10.8); MONOCYTES # (AUTO) 0.2 10^3/uL (0.0-1.0); MONOCYTES % (AUTO) 2.4 %; NEUTROPHILS # (AUTO) 8.4 10^3/uL (1.5-6.6); NEUTROPHILS % (AUTO) 91.5 %; PLT - PLATELET COUNT 356 10^3/uL (130-450); RED BLOOD COUNT 3.82 10^6/uL (4.20-5.40); RED CELL DISTRIBUTION WIDTH 15.9 % (12.0-15.0); WHITE BLOOD COUNT 9.2 x10^3/uL (4.8-10.8)
[2018-11-22 05:38] LABS: ALBUMIN 3.2 g/dL (3.2-5.5); ALBUMIN/GLOBULIN RATIO 1.1 (1.0-2.2); BILIRUBIN,TOTAL 0.3 mg/dL (0.2-1.0); CALCIUM 8.7 mg/dL (8.5-10.3); CREATININE 0.5 mg/dL (0.4-1.0); MAGNESIUM 2.3 mg/dL (1.7-2.8); PHOSPHORUS 3.7 mg/dL (2.5-4.6); TOTAL PROTEIN 6.2 g/dL (6.7-8.2)
[2018-11-22] MEDS: methylPREDNISolone SUCCINATE 40 MG/ML VIAL IVP SCH ×3 (06:17→11:43)
[2018-11-22] MEDS: PIPERACILLIN/TAZOBACTAM 3.375 GM in SODIUM CHLORIDE 0.9% MINIBAG 100 ML IV SCH ×3 (06:17)
[2018-11-22] MEDS: CHLORHEXIDINE GLUCONATE 15 ML UDC PO SCH ×3 (06:34→21:09)
[2018-11-22] MEDS: LEVALBUTEROL 1.25 MG/3 ML NEB INH PRN ×4 (07:25→19:14)
[2018-11-22] MEDS: IPRATROPIUM 0.2 MG/ML NEB INH SCH ×3 (07:25→19:14)
[2018-11-22] MEDS: FORMOTEROL FUMARATE NEB 20 MCG/2 ML INH SCH ×2 (07:25→19:14)
[2018-11-22] MEDS: BUDESONIDE 0.5 MG/2 ML NEB INH SCH ×2 (07:26→19:14)
[2018-11-22] MEDS: LOSARTAN 50 MG TABLET PO SCH (08:06)
[2018-11-22] MEDS: SACCHAROMYCES BOULARDII 250 MG CAPSULE PO SCH ×2 (08:06→17:01)
[2018-11-22] MEDS: POLYETHYLENE GLYCOL 3350 17 GM PACKET PO SCH (08:06)
[2018-11-22] MEDS: diltiaZEM CD 180 MG CAPSULE PO SCH (08:06)
[2018-11-22] MEDS: levoFLOXacin 250 MG TABLET PO SCH (08:06)
[2018-11-22] MEDS: SERTRALINE 50 MG TABLET PO SCH (08:07)
[2018-11-22] MEDS: LORATADINE 10 MG TABLET PO SCH (08:07)
[2018-11-22] MEDS: ENOXAPARIN 40 MG/0.4 ML SYRINGE SUBQ SCH (08:07)
[2018-11-22] MEDS: SODIUM CHLORIDE FLUSH 0.9% 10 ML SYRINGE IVP SCH ×3 (09:09→18:22)
[2018-11-22] MEDS: MORPHINE SOL 10 MG/0.5 ML SYRINGE PO PRN ×3 (11:36→18:15)
--- NOTE | 2018-11-22 12:16 | Discharge Plan ---
Discharge Plan Disposition: 06 Home Health Service Condition: Poor Prescriptions: Levofloxacin [Levaquin] 750 mg PO DAILY #7 tablet Methylprednisolone [Medrol] 4 mg PO UD #1 tab.ds.pk Diet: Regular Activity Restrictions: Activity as Tolerated Shower Restrictions: No Driving Restrictions: Yes (no driving) Assistance Devices: Wheelchair, Walker Instruction Topics: Care Palliative, Pulmonary Fibrosis, ED COPD Flare Additional Instructions or Follow Up instructions: You were placed in the hospital because of severe shortness of breath that resulted from lack of oxygen and from retention of carbon dioxide. We feel that you have end-stage, terminal lung disease. You have no true lung reserve anymore. So any small illness will result in severe lung decompensation in you. Your x-ray showed small areas of patchy pneumonia behind your heart, and that may have been why your lungs decompensated. You received IV antibiotics, IV steroids, and inhalation treatments. Your oxygen level has normalized to your baseline. Because of your baseline lung disease you are already on 4 L of oxygen for 24 hours a day. Your carbon dioxide level is now normal. Your chest x-ray shows improvement in the patchy pneumonia behind your heart. It is now time for you to go home. Because you have such limited oxygen capacity from your severe lung disease, it requires quite a bit of effort for you to take of yourself so you are relying on Home Health aides, RN , a [facility] provider and your daughter, Lolly, to take care of you. Simple things such as getting up to go to the bathroom, have a bath, will cause you oxygen levels to go very, very low. It will be Ivette's responsibility as well as help from the [facility] provider, to give you your medicines every day. To keep track of them. To pick them up from the pharmacy and to bring them home to give them to you. The palliative rn managed care has already spent time with Ivette, writing down the medicines, and how to give them. Most recently as October 31, Ms. Sams spoke to Ivette and wrote down how to give your medicines. You will continue to be followed by a home health agency. Please remember you are still in charge of your care plan, and Ivette is there to help you. Your power of web marketing intern, in case you cannot speak, is your sister Tameka Stock. Options that have been discussed in the past 3 palliative care have been hospice, going to a group home, and possible focus on no further interventions. You have been very clear in stating that you still want everything done. You want to stay alive as long as possible. You would like to stay at home as long as possible. And you want your family and the in-home hired care providers to take care of you. In the event that you could no longer breathe on your own, you will need to be put on life support. Life support will consist of a ventilator tube in your mouth down into your lungs to help you breathe. That is usually not a practical long-term solution. So I brought up the topic of long- term ventilator support to keep people alive via a tracheostomy. A tracheostomy is a hole in the front of your neck, through your windpipe, and the ventilator machine and tubing get attached to that hole to keep you alive. You said that that would be an option that you would want to use. I also explained that if you are on long-time ventilator support you would need to move from home to a assisted care facility for that in either [place] or [place]. You are familiar with [place], and stated that you gone to the movies at their movie theater when you were younger. If you had a choice, you would like to go to the [facility] which [facility]. As such, I am going to let your primary care provider know, that in the future, you would like to be considered a candidate for tracheostomy when the time would come. In the meantime, continue to take your lung medications via your nebulizer medicines. Continue your oxygen at 4 l/min via nasal canula. I am giving you a few more days of Levaquin for an antibiotic. See your primary care provider in the next 1-2 weeks. Follow-Up Care: Home Health - RN, Home Health - PT No Smoking: If you smoke, Please STOP! Call for help. Follow-up with: Kirti Phillips ARNP [Credentialed Staff Provider] -
--- NOTE | 2018-11-22 18:38 | PROVIDER PROGRESS NOTE ---
Subjective - Prog Note Date Prog Note Date: 11/22/18 Prog Note Time: 18:34 - Subjective Subjective: I spoke to the patient at length today about her wishes. She definitely wanted to go home. She was back to baseline. A long conversation was held between her and her divmhzac-sv-pio, her son's , and myself as well as nursing and nephrology social worker. The apymdmsu-np-oxq was understandably alarmed at the idea that her abylyh-wm-mtl would go home and would need a lot more care than she was currently receiving. All of us agreed. Ms. Gurrola needs 24/7 care and is at risk for severe decompensation very quickly from her pulmonary status. I carefully explained to her akgxvswz-yx-vfr the patient's baseline disease status, and the possibility of lung cancer on top of it. Ms. Gurrola confirmed after I explained that she also wants to go home. The sqgqkhiy-uo-vwj was asking if there is any way we can provide 24/7 care and we explained that she h as maxed out her jonathan provider, is already getting home health, and her daughter Ivette is supposed to be living with her and taking care of her. She cannot get any more services. The only way to get 24/7 care is to move her into a long term facility and Ms. Gurrola is very definitive and stating she will not go there. The solccqek-uo-jcf also expressed alarm at the idea of her jyuzie-fx-gxq taking care of mom. She describes her tppbwb-ce-ftu as not reliable or responsible. And possibly using methamphetamines. I did also explained that Ms. Gurrola wants to be full code in the event of a pulmonary cardiac arrest. We will do everything that we can. And once we stabilize her, if we stabilize her, she would be candidate for a tracheostomy and long-term care. Ms. Gurrola is okay with that. We made all the arrangements for her to go home. Family was here to take her. The only person that was not here was Ivette, her daughter. As the patient was waiting in her wheelchair to get into the car, she began getting anxious. More short of breath. And she felt like there was no one home to take care of her and she did not want to go home. As such she asked to please be taken back to her room and discharge was canceled. Current Medications - Current Medications Current Medications: Active Medications Acetaminophen (Tylenol) 650 mg PO Q4HR PRN PRN Reason: Pain 1 to 4 Atorvastatin Calcium (Lipitor) 20 mg PO QPM [facility] Last Admin: 11/21/18 21:09 Dose: 20 mg Budesonide (Pulmicort) 0.5 mg INH RTBID [facility] Last Admin: 11/22/18 07:26 Dose: 0.5 mg Chlorhexidine Gluconate (Peridex) 15 ml PO BID [facility] Last Admin: 11/22/18 09:09 Dose: 15 ml Diltiazem HCl (Cardizem Cd) 180 mg PO DAILY [facility] Last Admin: 11/22/18 08:06 Dose: 180 mg Enoxaparin Sodium (Lovenox) 40 mg SUBQ DAILY [facility] Last Admin: 11/22/18 08:07 Dose: 40 mg Fluticasone Propionate (Flonase) 1 sprays PAULINE BID PRN PRN Reason: Allergy Symptoms Formoterol Fumarate (Perforomist) 20 mcg INH RTBID [facility] Last Admin: 11/22/18 07:25 Dose: 20 mcg Guaifenesin (Robitussin Liquid) 100 mg PO Q4HR PRN PRN Reason: Cough Last Admin: 11/20/18 12:58 Dose: 100 mg Ipratropium [place] (Atrovent) 0.5 mg INH RTQ6H [facility] Last Admin: 11/22/18 11:23 Dose: 0.5 mg Levalbuterol HCl (Xopenex) 1.25 mg INH Q4H PRN PRN Reason: Shortness of Air/Wheezing Last Admin: 11/22/18 15:21 Dose: 1.25 mg Levofloxacin (Levaquin) 750 mg PO DAILY [facility] Last Admin: 11/22/18 08:06 Dose: 750 mg Loratadine (Claritin) 10 mg PO DAILY [facility] Last Admin: 11/22/18 08:07 Dose: 10 mg Lorazepam (Ativan) 0.5 mg PO Q8H PRN PRN Reason: Anxiety Last Admin: 11/21/18 23:17 Dose: 0.5 mg Lorazepam (Ativan Inj (Vial)) 0.5 mg IVP Q2H PRN PRN Reason: Anxiety Losartan Potassium (Cozaar) 50 mg PO DAILY [facility] Last Admin: 11/22/18 08:06 Dose: 50 mg Methylprednisolone (Medrol) 8 mg PO DAILY [facility] Stop: 11/23/18 07:01 Methylprednisolone (Medrol) 4 mg PO DAILY [facility] Methylprednisolone (Medrol) 4 mg PO DAILY [facility] Methylprednisolone (Medrol) 8 mg PO ONCE ONE Stop: 11/23/18 21:01 Morphine Sulfate () 15 mg PO BID PRN PRN Reason: Shortness of Air/Wheezing Last Admin: 11/21/18 23:17 Dose: 15 mg Morphine Sulfate (Roxanol) 5 mg PO Q2H PRN PRN Reason: Shortness of Air/Wheezing Last Admin: 11/22/18 18:15 Dose: 5 mg Ondansetron HCl (Zofran Inj) 4 mg IVP Q6HR PRN PRN Reason: Nausea / Vomiting Polyethylene Glycol (Miralax) 17 gm PO DAILY [facility] Last Admin: 11/22/18 08:06 Dose: 17 gm Saccharomyces Boulardii (Florastor) 250 mg PO BIDWM [facility] Last Admin: 11/22/18 17:01 Dose: 250 mg Sertraline HCl (Zoloft) 50 mg PO DAILY [facility] Last Admin: 11/22/18 08:07 Dose: 50 mg Sodium Chloride (Normal Saline Flush 0.9%) 10 ml IVP 0100,0900,1700 [facility] Last Admin: 11/22/18 18:22 Dose: Not Given Sodium Chloride (Normal Saline Flush 0.9%) 10 ml IVP PRN PRN PRN Reason: NEEDED PER PROVIDER ORDERS Last Admin: 11/21/18 18:47 Dose: 10 ml Albuterol Sulfate [Proair Hfa Inhaler] 1 puffs INH Q6H PRN 08/31/16 Atorvastatin Calcium 20 mg PO QPM 07/18/18 amLODIPine [Norvasc] 5 mg PO DAILY 07/18/18 Morphine Sulfate [Morphine Sulf Oral (Roxanol)] 5 mg PO Q2H PRN 10/19/18 Polyethylene Glycol 3350 [Miralax] 17 g PO DAILY 10/19/18 Loratadine 1 cap PO DAILY PRN 10/30/18 Valsartan [Diovan] 1 tab PO DAILY 10/30/18 Albuterol 2.5 mg INH Q4H PRN 11/19/18 Fluticasone [Flonase] 1 sprays PAULINE BID PRN 11/19/18 Furosemide 20 mg PO DAILY 11/19/18 Potassium Chloride 10 meq PO DAILY 11/19/18 dilTIAZem HCl [Diltiazem 24Hr ER] 120 mg PO DAILY 11/19/18 Objective - Vital Signs/Intake & Output Reviewed Vital Signs: Yes Vital Signs: Vital Signs x48h Pulse Resp 11/22/18 15:21 92 18 11/22/18 11:25 96 22 Intake & Output: Intake & Output 11/19/18 11/20/18 11/21/18 11/22/18 23:59 23:59 23:59 23:59 Intake Total 885 2220 2558.000 1180 Output Total 049 094 3559 100 Balance 405 1420 393.125 8900 - Objective General Appearance: positive: Alert, Moderate distress, Other (Short statured moderately overweight female with pursed lip breathing. Pursed lip breathing and slight tachypnea and tachycardia are her usual baseline. She is a little bit more tachycardic and tachypneic than usual now that she is gotten back upstairs and is sitting in a chair.) Eyes Bilateral: positive: PERRL, EOMI ENT: positive: Pharynx nml Neck: positive: No JVD Respiratory: positive: Chest non-tender, Wheezes (Very faint and scattered. Almost no breath sounds. She is struggling to breathe as she sits up.) Cardiovascular: positive: Regular rate & rhythm, Tachycardia Abdomen: positive: Non-tender, No organomegaly, Nml bowel sounds, No distention Skin: positive: Warm, Dry Neurologic/Psychiatric: positive: Oriented x3, CN's nml (2-12), Motor nml - Lab Results Fish Bones: 11/22/18 04:45 11/22/18 04:45 Other Labs: Lab Results x24hrs 11/22/18 11/22/18 Range/Units 04:45 04:45 WBC 9.2 (4.8-10.8) x10^3/uL RBC 3.82 L (4.20-5.40) 10^6/uL Hgb 11.0 L (12.0-16.0) g/dL Hct 34.7 L (37.0-47.0) % MCV 91.0 (81.0-99.0) fL MCH 28.8 (27.0-31.0) pg MCHC 31.7 L (32.0-36.0) g/dL RDW 15.9 H (12.0-15.0) % Plt Count 356 (130-450) 10^3/uL MPV 6.3 L (7.9-10.8) fL Neut # (Auto) 8.4 H (1.5-6.6) 10^3/uL Lymph # (Auto) 0.6 L (1.5-3.5) 10^3/uL [place] # (Auto) 0.2 (0.0-1.0) 10^3/uL Eos # (Auto) 0.0 (0.0-0.7) 10^3/uL Baso # (Auto) 0.0 (0.0-0.1) 10^3/uL Absolute Nucleated RBC 0.01 x10^3/uL Nucleated RBC % 0.1 /100WBC Sodium 139 (135-145) mmol/L Potassium 4.1 (3.5-5.0) mmol/L Chloride 92 L (101-111) mmol/L Carbon Dioxide 40 H* (21-32) mmol/L Anion Gap 7.0 (6-13) BUN 18 (6-20) mg/dL Creatinine 0.5 (0.4-1.0) mg/dL Estimated GFR (MDRD) 123 (>89) Glucose 183 H (70-100) mg/dL Calcium 8.7 (8.5-10.3) mg/dL Phosphorus 3.7 (2.5-4.6) mg/dL Magnesium 2.3 (1.7-2.8) mg/dL Total Bilirubin 0.3 (0.2-1.0) mg/dL AST 16 (10-42) IU/L ALT 12 (10-60) IU/L Alkaline Phosphatase 58 (42-121) IU/L Total Protein 6.2 L (6.7-8.2) g/dL Albumin 3.2 (3.2-5.5) g/dL Globulin 3.0 (2.1-4.2) g/dL Albumin/Globulin Ratio 1.1 (1.0-2.2) ABX Reporting Has patient been on IV antibiotics over the past 48 hours?: Yes Assessment/Plan - Problem List (1) Acute respiratory failure with hypoxia and hypercapnia Impression: The patient has improved bicarb on labs and fewer desaturations. She uses her Trilogy prn with a mouth tube and supplemental oxygen. Continue nebs, steroids iv and treating the underlying pneumonia. Day # 4 today. Transferred from ICU to med surg. 11/21/18. Return to med surg status since dc is cancelled. (2) COPD exacerbation with end stage, terminal COPD and lung masses presumed to be lung cancer. Assessment/Plan: Patient has frequent exacerbations. She had told a previous caregiver that she doesn't want Palliative Care or Hospice Care because she actually "likes coming to the hospital". She has wanted to be a Full Code, despite having discussions many times about how severe her COPD is along with the presence of lung CA in RUL, but never had a biopsy. She initially said that she wanted her son to decide whether she was going to be full code or not. That son is Ronnie. But he has been yang with our service in the past and said that he really cannot make this decisions for his mom and does not want to be the person to decide. So now it is her daughter Ivette that she is asking to make these decisions. I have spoken to her power of lead retail sales associate, Tameka Stock, who is her sister. When I asked Ms. Stock what is her understanding of her sister's condition. She said that Ms. Gurrola is told her that she has emphysema. And she is waiting for her doctors to stabilize her so that she can get one lung removed. I brought Ms. Stock up to date with regards to her sister's condition. I asked Ms. Stock why Ms. Gurrola would not share with her her true prognosis and disease state, and she guesses because Ms. Gurrola wants to go home, and Ms. Stock may make her stay. We then talked about palliative care. Ms. Gurrola had not told her sister that she has had a palliative care consult and continues to be seen by the palliative care service. We are hoping to make Ms. Gurrola as comfortable as possible, re duce the amount of admission she has, and with her terminal prognosis in mind, I have strongly recommended hospice transition. Ms. Stock was not aware of any of this. Ms. Stock did come visit her sister yesterday. Today she is visited by her ldhhdeoy-vz-oql. Long discussions were held in the presence of the patient and with permission from the patient to discuss her case with her ltejqzdx-ac-biy. Her brother and niece were in the room. They asked to excuse themselves from these conversations. Continue nebs, steroids. Palliative Care notes reviewed. They continue to see her at home and try to help daughter, Theresa, to help take care of mom with Home Health and inhome care providers. One care provider has already quit because of the stress. A new care provider was hired. But she has been terminated from her position. They are in the process of training her daughter's best friend, VITALY, to be a jonathan provider. Today's attempt at discharge was not carried out. Patient is anxious. There is no one at home to receive her when she gets out of the car. (3) CAP (community acquired pneumonia) Qualifiers: Laterality: unspecified laterality Qualified Code(s): J18.9 - Pneumonia, unspecified organism Assessment/Plan: Blood cultures were not ordered in ER. sputum culture ordered and not collected. She was treated empiric antibiotics with iv Levaquin and iv Zosyn, Day #4, to cover Pseudomonas (due to her frequent hospitalizations). Will switch to po levaquin . yesterday. And Zosyn will be stopped today. (4) Tachycardia Assessment/Plan: HR remains in 110's. Her Albuterol was changed to Xopenex and Amlodipine for HTN, changed to Card izem CD. But I do anticipate a continued tachycardia in the face of end stage COPD. (5) Hypertension Qualifiers: Hypertension type: essential hypertension Qualified Code(s): I10 - Essential (primary) hypertension Assessment/Plan: Continue meds and monitor VS. She is 120's/60's since midnight. Once 142 systolic at 5 am but back down again. Changed from Amlodipine to Cardizem CD, for BP plus HR control. Losartan continued. (6) Anxiety Assessment/Plan: Pt gets anxious when she has air hunger. Continue Ativan prn and could use Morphine when she is tachypneic with anxiety. (7) Depression Qualifiers: Depression Type: unspecified Qualified Code(s): F32.9 - Major depressive disorder, single episode, unspecified Assessment/Plan: Patient on her home dose of Zoloft. (8) Hypokalemia Assessment/Plan: Replace and monitor electrolytes daily.
[2018-11-22] MEDS: LORazepam 0.5 MG TABLET PO PRN (21:06)
[2018-11-22] MEDS: MORPHINE ER 15 MG TABLET PO PRN (21:06)
[2018-11-22] MEDS: ATORVASTATIN 10 MG TABLET PO SCH (21:06)
[2018-11-23] MEDS: SODIUM CHLORIDE FLUSH 0.9% 10 ML SYRINGE IVP SCH (00:37)
[2018-11-23 05:28] LABS: BASOPHILS % (AUTO) 0.2 %; EOSINOPHILS % (AUTO) 0.1 %; HGB - HEMOGLOBIN 10.9 g/dL (12.0-16.0); LYMPHOCYTES # (AUTO) 0.6 10^3/uL (1.5-3.5); LYMPHOCYTES % (AUTO) 7.7 %; MEAN CORPUSCULAR HEMOGLOBIN 28.6 pg (27.0-31.0); MEAN CORPUSCULAR HGB CONC 31.7 g/dL (32.0-36.0); MEAN CORPUSCULAR VOLUME 90.2 fL (81.0-99.0); MEAN PLATELET VOLUME 6.2 fL (7.9-10.8); MONOCYTES # (AUTO) 0.4 10^3/uL (0.0-1.0); MONOCYTES % (AUTO) 4.7 %; NEUTROPHILS # (AUTO) 6.7 10^3/uL (1.5-6.6); NEUTROPHILS % (AUTO) 87.3 %; PLT - PLATELET COUNT 371 10^3/uL (130-450); RED CELL DISTRIBUTION WIDTH 15.7 % (12.0-15.0); WHITE BLOOD COUNT 7.7 x10^3/uL (4.8-10.8)
[2018-11-23 05:44] LABS: ALBUMIN 2.9 g/dL (3.2-5.5); BILIRUBIN,TOTAL 0.4 mg/dL (0.2-1.0); CALCIUM 8.4 mg/dL (8.5-10.3); CREATININE 0.5 mg/dL (0.4-1.0); MAGNESIUM 2.3 mg/dL (1.7-2.8); PHOSPHORUS 3.6 mg/dL (2.5-4.6); TOTAL PROTEIN 5.7 g/dL (6.7-8.2)
[2018-11-23] MEDS ORDERED: methylPREDNISolone 4 MG TABLET PO SCH ×3 (07:00→18:00)
[2018-11-23] MEDS: MORPHINE SOL 10 MG/0.5 ML SYRINGE PO PRN ×2 (07:36→09:30)
[2018-11-23] MEDS: LEVALBUTEROL 1.25 MG/3 ML NEB INH PRN (07:39)
[2018-11-23] MEDS: FORMOTEROL FUMARATE NEB 20 MCG/2 ML INH SCH (07:39)
[2018-11-23] MEDS: IPRATROPIUM 0.2 MG/ML NEB INH SCH (07:39)
[2018-11-23] MEDS: BUDESONIDE 0.5 MG/2 ML NEB INH SCH (07:39)
[2018-11-23] MEDS: LORATADINE 10 MG TABLET PO SCH (08:31)
[2018-11-23] MEDS: SACCHAROMYCES BOULARDII 250 MG CAPSULE PO SCH (08:32)
[2018-11-23] MEDS: levoFLOXacin 250 MG TABLET PO SCH (08:34)
[2018-11-23] MEDS: diltiaZEM CD 180 MG CAPSULE PO SCH (08:35)
[2018-11-23] MEDS: SERTRALINE 50 MG TABLET PO SCH (08:36)
[2018-11-23] MEDS: LOSARTAN 50 MG TABLET PO SCH (08:36)
[2018-11-23] MEDS: POLYETHYLENE GLYCOL 3350 17 GM PACKET PO SCH (08:37)
[2018-11-23] MEDS: LORazepam 0.5 MG TABLET PO PRN (08:46)
[2018-11-23] MEDS: guaiFENesin 100 MG/5 ML UDC PO PRN (08:48)
[2018-11-23] MEDS: ENOXAPARIN 40 MG/0.4 ML SYRINGE SUBQ SCH (09:19)
[2018-11-23] MEDS: CHLORHEXIDINE GLUCONATE 15 ML UDC PO SCH (09:26)
[2018-11-23 10:18] VITALS: BP 148/75
[2018-11-23] MEDS ORDERED: methylPREDNISolone 4 MG TABLET PO ONE (21:00)
--- NOTE | 2018-11-25 01:02 | DISCHARGE SUMMARY ---
Physician: Shannen Webb MD DATE OF ADMISSION: 11/19/2018 DATE OF DISCHARGE: 11/23/2018 DISCHARGE DIAGNOSES 1. Uhrak-gp-wlecqfx respiratory failure with hypoxia and hypercapnia. 2. Community-acquired pneumonia. 3. Chronic obstructive pulmonary disease exacerbation. 4. Metabolic encephalopathy. 5. Chronic pain syndrome. 6. Tachycardia. 7. Hypertension. 8. Depression with anxiety. 9. Pulmonary hypertension. 10. Lung masses/pulmonary nodules. 11. Hypokalemia. DISCHARGE MEDICATIONS 1. Cardizem CD 180 mg p.o. daily. 2. Albuterol via nebulizer every 4 hours as needed. 3. Norvasc 5 mg daily. 4. Atorvastatin 20 mg daily. 5. Flonase nasal spray 1 spray each nostril daily. 6. Lasix 20 mg daily. 7. Loratadine 10 mg daily. 8. Roxanol drops 100 mg/5 mL solution, 5 mg every 2 hours as needed for severe shortness of breath and anxiety. 9. MiraLax 17 gram packet daily. 10. Potassium chloride 10 mEq daily for 2 weeks only. 11. Diovan 160 mg daily. 12. Tylenol 650 mg every 4 hours as needed for pain, fever, or headache. 13. Levaquin 750 mg daily for the next 7 days. 14. Medrol Dosepak to be tapered as instructed. 15. Sertraline 50 mg daily. PRINCIPAL PROCEDURES: Chest x-ray with retrocardiac opacities possibly representing infiltrates and COPD changes. HOSPITAL COURSE: This is an unfortunate female who is 68 years old. She is well known to our service and the ER with multiple evaluations for shortness of breath in a patient who has end-stage COPD. Her chronic physical exam is that of a short-statured, morbidly obese female who has pursed lip breathing and very easily destabilized pulmonary status with exertion. That is her baseline. She lives in her own apartment. Currently has her daughter going back and forth between her daughter's apartment and patient's apartment to help take care of her. Patient had a LAURA provider who felt that care for this patient was overwhelming, and that LAURA provider quit. She also had another LAURA provider who was taking care of her after the first one, but the current LAURA provider was terminated by the agency. Currently patient is relying on her daughter to take care of her, as well as Home Health, who has been by frequently. Palliative Care is also rounding on patient in her home. Palliative Care recently sat down with the daughter to go over the medications, reconcile them, and explained how patient is supposed to be taking them. Patient has been resistant to the idea of transitioning to hospice. She has a severely disabling disease that is chronic and progressive over the last few years. She is very firm that she still wants to be a FULL CODE. At times, she says that she will let her children decide, but her son says he wants nothing to do with that decision. The patient's daughter has been unable to come to care conferences to have that conversation with mom or social work or palliative care. With this in mind, patient comes in with yet another episode of shortness of breath and productive cough. She was seen earlier in the month in the emergency room and given steroids and antibiotics and sent home. She went to go see the clinic today, and she was found to have saturations in the 60s in spite of a baseline 4 L per minute nasal cannula. She was placed on a nonrebreather, given a DuoNeb, and EMS brought her to our emergency room. She was speaking in very sentences, so history was limited. There were no fevers, chills, chest pain, pressure. No abdominal pain. No change in bowel status. There was no hemoptysis. On physical examination in the emergency room, she was struggling to breathe, with an increased I:E ratio, almost no air sounds, and a very tight lung exam. She was speaking in 3-word sentences. She was on 100% nonrebreather, and O2 saturation was 94%. White cell count was normal. Hemoglobin was stable. Chest x-ray showed possible new retrocardiac densities. She was placed in the hospital for empiric treatment of community-acquired pneumonia. She was felt to be in acute on chronic respiratory failure with hypoxia and hypercapnia. Blood gas showed a pCO2 of 87 and a pO2 of 36, but this was venous. No arterial blood gas was obtained. She was started on empiric IV antibiotic therapy, steroids, nebulizers. No blood cultures were done, nor were sputum cultures done. She did have metabolic encephalopathy from the presumed hypercapnia. On BMP, carbon dioxide was 41. She was transferred to the ICU. She is very claustrophobic and cannot tolerate BiPAP. Aggressive respiratory treatments continued with vigilance. At this time, patient could decompensate to the point of needing intubation, and she is a FULL CODE. Gradually, metabolic encephalopathy resolved. Chronic pain was treated with her continued Roxanol drops. She had constant tachycardia, and as such, Cardizem CD was added to slow her heart rate down. Blood pressure was controlled. Depression and anxiety were definitely noted. While on the one hand she wants to go home and never wants to be in a nursing home facility, she is very fearful of doing that. At the time of discharge, with careful planning of the patient's daughter being at home, other lqcfxhpt-la-cwy picking her up to take her home, she panicked at the last second and said that she cannot go home. Her daughter was actually not going to be there, and she felt fearful about being in the apartment by herself. As such, discharge was canceled on November 23, and she came back up to the floor. The problem is also that of multiple pulmonary nodules. These were identified in April 2018. Between then and now, she is just getting ready to see Dr. Ileana Bowles for an oncology opinion next week. CT-PET has not been ordered by the primary care provider. Hypokalemia is still present. Numerous conversations were held with her power of county attorney - which is her sister - her alodskbu-pi-fhh, patient. She wants her children to take care of her, but one child has already stated they really cannot take care of her, and the patient's daughter is struggling to take care of her. She will return home with home health, palliative care, care of her daughter, and a new [facility] provider who is currently in training to be certified who is the patient's daughter's friend. Complicating the matter is the xiuzitas-hs-poz stating that the patient's daughter may not be up to the task. The patient's daughter has her own issues, including alleged methamphetamine abuse. Engraving Plate Maker is aware. Adult Protective Services will be notified. In trying to plan for the inevitability of this patient having complete respiratory failure and needing intubation, we did talk about what would happen after that. Patient said she still wanted everything done with aggressive support. I explained to her that possibly tracheostomy would be appropriate for her. If she was adamant that she still wanted prolonged life support in the face of end-stage lung disease, that could be possible, but in the end, even with a tracheostomy, she would continue to deteriorate, especially if she had a neoplasm. She is sent home in guarded condition with a poor prognosis. PHYSICAL EXAMINATION VITAL SIGNS: Temperature is 37, pulse 92, blood pressure 148/75, respirations 22, on 4 L nasal cannula resulting in 97% O2 saturation. GENERAL: She is a short-statured female who is alert, oriented. Her lethargy is completely gone. NECK: Short-statured enough that it is difficult to assess for JVD, but there are no carotid bruits. LUNGS: Very poor air excursion. She went from 3-4 words to having to gasp for breath with pursed lip breathing on admission to, at discharge, able to do 1 or 2 sentences before having to gasp for air. She is still pursed lip breathing, but again, very poor air excursion. HEART: PMI is not palpable. She has distant cardiac tones. Baseline rate at rest is 70s-90s. When she has to turn over or even ambulate, she will get increasingly easily tachypneic and tachycardic into the 120s. ABDOMEN: Large, protuberant, obese. Hypoactive bowel sounds but nontender. Difficult to assess for organomegaly. EXTREMITIES: Feet and hands do not have cyanosis. Trace edema around her ankles. She is able, with 2-person assist, to sit to transfer, stand to walk to a wheelchair to be transferred, but even that minimal exertion results in tachypnea, tachycardia and hypoxia. It takes her close to 20 minutes to get back to baseline. Greater than 30 minutes was spent in coordinating discharge. She has visits with Dr. Bowles, oncology, on December 25, and Ellie Sams, palliative care, on November 27. Home Health has been notified she will return to resume home health. TD: 11/24/2018 12:55 AMOL
== END 2018-11-23 10:00 | disposition home health service (06) | DRG 189 ==
LOC: EDUNIT# → ED 12:54 → ICU 14:20
PROVIDERS: ADMIT Internal Medicine; ATTEND Specialist
DX: J43.9 Emphysema, unspecified (principal); J96.11 Chronic respiratory failure with hypoxia; Z51.5 Encounter for palliative care; J96.22 Acute and chronic respiratory failure with hypercapnia; J18.9 Pneumonia, unspecified organism; J32.9 Chronic sinusitis, unspecified; G93.41 Metabolic encephalopathy; J44.1 Chronic obstructive pulmonary disease with (acute) exacerbation; J44.0 Chronic obstructive pulmonary disease with (acute) lower respiratory infection; J96.21 Acute and chronic respiratory failure with hypoxia; G89.4 Chronic pain syndrome; R00.0 Tachycardia, unspecified; I10 Essential (primary) hypertension; F41.8 Other specified anxiety disorders; I27.20 Pulmonary hypertension, unspecified; R91.8 Other nonspecific abnormal finding of lung field; E87.6 Hypokalemia; F40.240 Claustrophobia; M19.90 Unspecified osteoarthritis, unspecified site; Z90.49 Acquired absence of other specified parts of digestive tract; Z87.891 Personal history of nicotine dependence; E66.01 Morbid (severe) obesity due to excess calories; K21.9 Gastro-esophageal reflux disease without esophagitis; Z99.81 Dependence on supplemental oxygen; F32.9 Major depressive disorder, single episode, unspecified; F41.9 Anxiety disorder, unspecified
CPT/HCPCS: 36415; 71045; 80053; 82803; 83690; 83735; 84100; 84484; 85025; 85610; 87150; 94640; 94660; 96365; 96375; 99231; 99284; 99291

== ENCOUNTER 2018-11-23 10:06 | Outpatient (CLI) | payer MEDICARE, MEDICAID | END 2018-11-23 10:07 | disposition home or self-care (01) | LOC: EMS 10:06 | PROVIDERS: ATTEND Surgery | DX: J96.10 Chronic respiratory failure, unspecified whether with hypoxia or hypercapnia (principal) | CPT/HCPCS: A0425; A0428 ==

== ENCOUNTER 2018-11-27 15:22 | Outpatient (CLI) | payer MEDICARE, MEDICAID ==
--- NOTE | 2018-11-27 15:53 | CONSULTATION NOTE ---
Palliative Care Follow Up - Referral Referring Provider: DOMINGO Reyes Time of Visit: 11/27/2018. 13:10 - 14:10 Referral setting: Home (Seen in home setting due to taxing and considerable effort required to leave the home due to severe and debilitating chronic dyspnea secondary to end-stage lung disease, pulmonary fibrosis, and lung mass.) - Information Sources Records reviewed: Previous records reviewed History/Review of Systems obtained from: Patient, Friend Exam limitations: Clinical condition (speaking makes her SOA) - History of Present Illness Update Brief HPI Update: Reserved and introverted 68-year-old woman with severe end-stage COPD and pulmonary fibrosis, pulmonary hypertension, and 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 PET and MRI were inconclusive for cancer, bur revealed no brain mets. A lung biopsy can't be performed so there is no cancer diagnosis. -Below are the patient's hospitalizations/ED visits since April: -April for COPD exacerbation, lung mass detected -May ED for SOA -Jul 18 hospital for pneumonia -Sep 13 ED for SOA -Sep 16 hospitalization for pneumonia -Oct 13 hospitalization for COPD exacerbation. -Oct 30 ED for COPD exacerbation, bronchitis -Nov 19 ICU for acute respiratory failure/COPD exacerbation with hypoxia and hypercapnia; and CAP Patient is back at home at her request and insistence; she has steadfastly declined to go to SNF or [id number] for 24/7 care which would be more jess ropriate for her condition. She is maxed out on [employer] caregiver hours. Today a new [employer] caregiver is there; the previous one was fired after one day. Apparently she came to work very sick with a respiratory issue. They have a separate [employer]URA daytime caregiver. The family friend, VITALY Hadley, has submitted paperwork to become the [employer]A caregiver and her application is pending. The patient has [facility] for oversight, medication education and management. the patient may also be receiving [employer] benefits. The patient looks better and states that she is feeling better. She has been discharged on Medrol pack (methylprednisolone 4mg taper down bubble pack), and diltiazem. There has been confusion with patient's medications due to having a PCP provider, Palliative Care provider, and numerous hospitals providing scripts and/or medication changes, and [facility] caregivers who have not been administering medications. [facility] RN is helping organize the medications and family friend VITALY is administering. Today there was a question involving diltiazem being either 120mg or 180mg -- both were listed in one of the hospital notes. However, up until yesterday, VITALY had been giving her 120 mg diltiazem and reports the BP has been low, 115 SBP and HR in the 90s (usually it's over 100). The patient was out of 120mg diltiazem as of today, and the new prescription that VITALY picked up was for 180mg. I consulted with Dr Webb who OK'd the 180mg dosing based on a SBP in the 150s. However, this was prior to VITALY reporting that patient's BP has been well controlled with 120mg dosing, and patient's SBP has been running around 115 and HR in the 90s instead of over 100s as it usually is. Patient's BP was 125/65 for me today, although it later increased to 162/76, after discussion of advance care planning. In view of the fact that BP was well controlled at 120mg, I wrote a refill script for 120mg. VITALY will return the 180mg tablets to the pharmacy. Patient continues to reply that she will think about it when I inquire if she has been considering going to a nursing facility for 12/06 care. She also has been thinking about going on to Hospice, although daughter Ivette, who was present today for a very short time, says the patient is leaning toward continuing with Home Health. She likes the RN Sally; family thinks it is a good fit. [facility] is scheduled to come on and . When asking the patient about her conversation with the hospitalist regarding tracheostomy. At that time she told the hospitalist she would want that as a treatment. Today she asked for printout information about tracheostomy. Patient uses Trilogy ventilator regularly and morphine, is not using nebulizer Social History - Living Situation Living arrangement: At home Living Situation: With family, With caregiver(s) Support System: [employer] caregiving hours are maxed: New [employer] caregiver there today for first time, named Silas. He will come . There is a second [employer]URA caregiver for the weekends. Family friend VITALY (aka Leonie) has turned in paperwork to apply as a [employer] caregiver, the plan is that she will take over the role of [employer]A caregiver. Daughter Ivette is living with the patient. [facility] comes on and . Medications/Allergies - Medications Home Medications: Ambulatory Orders Medication Instructions Recorded Confirmed Albuterol Sulfate [Proair Hfa 1 puffs INH Q6H PRN 08/31/16 11/19/18 Inhaler] Atorvastatin Calcium 20 mg PO QPM 07/18/18 11/19/18 Morphine Sulfate [Morphine Sulf 5 mg PO Q2H PRN 10/19/18 11/27/18 Oral (Roxanol)] Polyethylene Glycol 3350 [Miralax] 17 g PO DAILY 10/19/18 11/19/18 Loratadine 1 cap PO DAILY PRN 10/30/18 11/27/18 Valsartan [Diovan] 1 tab PO DAILY 10/30/18 11/27/18 Albuterol 2.5 mg INH Q4H PRN 11/19/18 11/19/18 Fluticasone [Flonase] 1 sprays PAULINE BID PRN 11/19/18 11/27/18 dilTIAZem HCl [Diltiazem 24Hr ER] 120 mg PO DAILY 11/19/18 11/27/18 Acetaminophen [Tylenol] 650 mg PO Q4HR PRN tablet 11/22/18 Levofloxacin [Levaquin] 750 mg PO DAILY #7 tablet 11/22/18 11/27/18 Methylprednisolone [Medrol] 4 mg PO UD #1 tab.ds.pk 11/22/18 11/27/18 Sertraline [Zoloft] 50 mg PO DAILY tablet 11/22/18 11/27/18 amLODIPine [Norvasc] 5 mg PO DAILY 11/27/18 11/27/18 - Allergies Allergies/Adverse Reactions: Allergies Allergy/AdvReac Type Severity Reaction Status Date / Time No Known Drug Allergies Allergy Verified 11/19/18 13:09 Review of Systems - Constitutional Constitutional: reports: Fatigue, Weakness, Other (facial puffiness, swelling) - Cardiovascular Cardiovascular: reports: Exertional dyspnea, Decr. exercise tolerance - Respiratory Respiratory: reports: Sputum production (brown colored), Wheezing, SOB at rest, SOB with exertion - Gastrointestinal Gastrointestinal: denies: Constipation - Genitourinary Genitourinary: denies: Dysuria, Incontinence - Musculoskeletal Musculoskeletal: reports: Assistive devices - Psychiatric Psychiatric: reports: Anxiety - Other Findings Other Findings: Limited ROS Physical Exam - Vital Signs Temperature: 97.0 F Pulse Rate: 108 O2 Saturation: 89 Blood Pressure: 162/76 - Physical Exam General Appearance: positive: Alert, Mild distress Eyes Bilateral: positive: No lid inflammation, Conjunctivae nml, No scleral icterus ENT: positive: No signs of dehydration Neck: positive: Trachea midline Cardiovascular: positive: Tachycardia Respiratory: positive: Chest non-tender, No respiratory distress, Diminished throughout (No breath sounds), Wheezes Abdomen: positive: Obese Skin: positive: Pallor Extremities: positive: Pedal edema Neurologic/Psychiatric: positive: Oriented x3, Flat affect Palliative Care - POLST Patient has POLST: No Dyspnea: Severe (7-10) Constipation: No - Palliative Care Discussion: Patient apparently is considering switching from Home Health to Hospice, but family member states they are leaning more toward continuing Home Health, they think the RN Sally is a good fit for the patient, and she likes her. HH is scheduled to come on Tuesdays and but they hadn't been there today (it is Monday afternoon). Patient has remained steadfast about wanting to live at home. Today when asked if she is considering a facility for 24 hour care, she says she has to think about it. She did request paperwork about tracheostomy. Dr Webb Had spoken to her about this in the hospital and at that time she stated it was an option she would co nsider. Today when asked if she was still considering it, she wanted printed information so she could read about it. Patient gave verbal permission today (and she has also given verbal permission in the past to speak to VITALY) to speak with family friend VITALY/Leonie about her health condition. I did confirm she in at end-stage of her lung disease, 12/06 care in a facility is a more appropriate care setting, which VITALY did agree with. The patient retains capacity to make her medical decisions and chooses to remain at home at this time, and full code. VITALY states that people around her need to continue to bring the subject up with her. She says the patient is "strong" and "strong willed." Impression and Recommendations - Palliative Care Impression: 68-year-old female with end-stage COPD on 4L O2, pulmonary fibrosis, pulmonary hypertension, likely lung cancer but unable to obtain biopsy to confirm, increasingly frequent visits to ED/hospital for COPD exacerbation and respiratory infections. She has been back at home for 5 days with [facility] caregivers, family help, and [facility] for oversight. Patient is without a POLST, has indicated she would want full code and intubation and would be interested in tracheostomy and would need to move into a mcc care facility in [place] or [place]. Recommendations/Counseling Done: COPD exacerbation, end stage lung disease: Back from ICU 11/19 - 11/24/18 for COPD exacerbation, hypoxia and hypercapnia, and respiratory infection. Oxygen is 4 to 4.5L. She continues the inhalers and Trilogy consistently. Continue morphine 20mg/mL, 0.25mg [id number] prn. She was also DC'd on Levaquin 750mg for a short duration post-discharge. Constipation, opioid induced: Patient reports daily bowel movements. Previously provided her a script for Senna and Miralax, explaining that it is OTC and so wouldn't be covered by insurance. Tachycardia and HTN: Diltiazem 120mg. There was some confusion and the new script picked up by family friend today was for 180mg. The patient has been on dialtiazem ER 120mg up until yesterday when the supply was done. I kept it at 120mg because they reported good BP and HR control at that dosage (SBP around 115, HR in the 90s instead of over 100) SBP today was 125, then a second reading is went to 162/76, HR 108. Amlodipine was stopped in the hospital Anxiety: Continue sertraline/Zoloft 50mg daily. Advance care planning: Patient is full code. Patient's goals are she wants to remain home, and to continue on Home Health, though she was "thinking about" transitioning to Hospice. She had expressed in the hospital that she would consider the option of tracheostomy if it ever came to that, and Dr Webb did explain to her she would need to live in a mcc care facility in that case, in either [place] or [place]. Dr Webb was to inform her PCP that patient would like to be considered a candidate for tracheostomy when the time would come. Patient also has daily [facility] caregiving support, plus daughter and family friend living with her and taking care of her. Palliative care will continue to provide support and oversight. Follow up as needed. Time Spent: 60 minutes were spent with more than 50% of the time spent on counseling, education, and coordination of care regarding medications and advanced care planning.
== END 2018-11-27 15:23 | disposition home or self-care (01) ==
LOC: PC 15:22
PROVIDERS: ATTEND Nurse Practitioner
DX: Z51.5 Encounter for palliative care (principal); J44.9 Chronic obstructive pulmonary disease, unspecified; J84.10 Pulmonary fibrosis, unspecified; I27.20 Pulmonary hypertension, unspecified; K59.03 Drug induced constipation; T40.2X5D Adverse effect of other opioids, subsequent encounter; R00.0 Tachycardia, unspecified; F41.9 Anxiety disorder, unspecified; R91.8 Other nonspecific abnormal finding of lung field; Z87.01 Personal history of pneumonia (recurrent); Z79.52 Long term (current) use of systemic steroids; Z79.51 Long term (current) use of inhaled steroids; Z79.891 Long term (current) use of opiate analgesic; Z99.81 Dependence on supplemental oxygen
CPT/HCPCS: 99350

== ENCOUNTER 2018-12-09 20:20 | Outpatient (CLI) | payer MEDICARE, MEDICAID | END 2018-12-09 20:21 | disposition critical access hospital (66) | LOC: EMS 20:20 | PROVIDERS: ATTEND Surgery | DX: R09.02 Hypoxemia (principal) | CPT/HCPCS: A0425; A0427 ==

== ENCOUNTER 2018-12-09 20:33 | Inpatient (IN) | payer MEDICARE, MEDICAID ==
[2018-12-09] MEDS ORDERED: ALBUTEROL NEB 2.5 MG/3 ML INH STA (20:38)
[2018-12-09] MEDS ORDERED: methylPREDNISolone SUCCINATE 125 MG/2 ML VIAL IVP STA (20:38)
--- NOTE | 2018-12-09 20:43 | ED Physician Documentation ---
PD HPI DYSPNEA - Stated complaint Stated Complaint: WHEEZING - History obtained from History obtained from: EMS - History of Present Illness Timing - onset: Today (68-year-old woman with recent admission to the ICU here for respiratory failure related to the OPD. All the history is from EMS on arrival because the patient seems altered and can state her name but really can offer no further history. Review of the chart shows that she was felt to have end-stage COPD on her last admission and was released about 2 weeks ago. She demanded to be full code at the time and refused hospice which the admitting team felt was appropriate. Reportedly had a sat of 60% yesterday but resolved with a DuoNeb and today again with saturations of 72% on home oxygen.) Review of Systems Unable to obtain: AMS PD PAST MEDICAL HISTORY - Past Medical History Cardiovascular: Hypertension Respiratory: COPD (on 4L of home O2 and trilogy, end stage COPD), Pneumonia, Other (Pulmonary fibrosis, pulmonary hypertension) Neuro: Headaches Endocrine/Autoimmune: None GI: GERD, Cholelithiasis PEOPLE MANAGER: Other : Frequency HEENT: Chronic sinusitis Psych: Depression, Anxiety Musculoskeletal: Osteoarthritis, Fatigue Derm: None - Past Surgical History Past Surgical History: No General: Cholecystectomy HEENT: Tonsil/Adenoidectomy - Present Medications Home Medications: Ambulatory Orders Medication Instructions Recorded Confirmed Albuterol Sulfate [Proair Hfa 1 puffs INH Q6H PRN 08/31/16 11/19/18 Inhaler] Atorvastatin Calcium 20 mg PO QPM 07/18/18 11/19/18 Morphine Sulfate [Morphine Sulf 5 mg PO Q2H PRN 10/19/18 11/27/18 Oral (Roxanol)] Polyethylene Glycol 3350 [Miralax] 17 g PO DAILY 10/19/18 11/19/18 Loratadine 1 cap PO DAILY PRN 10/30/18 11/27/18 Valsartan [Diovan] 1 tab PO DAILY 10/30/18 11/27/18 Albuterol 2.5 mg INH Q4H PRN 11/19/18 11/19/18 Fluticasone [Flonase] 1 sprays PAULINE BID PRN 11/19/18 11/27/18 dilTIAZem HCl [Diltiazem 24Hr ER] 120 mg PO DAILY 11/19/18 11/27/18 Acetaminophen [Tylenol] 650 mg PO Q4HR PRN tablet 11/22/18 Levofloxacin [Levaquin] 750 mg PO DAILY #7 tablet 11/22/18 11/27/18 Methylprednisolone [Medrol] 4 mg PO UD #1 tab.ds.pk 11/22/18 11/27/18 Sertraline [Zoloft] 50 mg PO DAILY tablet 11/22/18 11/27/18 amLODIPine [Norvasc] 5 mg PO DAILY 11/27/18 11/27/18 - Allergies Allergies/Adverse Reactions: Allergies Allergy/AdvReac Type Severity Reaction Status Date / Time No Known Drug Allergies Allergy Verified 12/09/18 20:58 - Social History Does the pt smoke?: No Smoking Status: Never smoker Does the pt drink ETOH?: Yes Does the pt have substance abuse?: No - Immunizations Immunizations are current?: No Immunizations: TDAP >10years/unknown - POLST Patient has POLST: No POLST Status: Full Code PD ED PE NORMAL - Vitals Vital signs reviewed: Yes - General General: Other (She is alert and makes eye contact. She is able to state her name but cannot state where she is or why. When asked if she is in pain she says yes but cannot state where it is. She has respiratory distress and is breathing quickly with pursed lip breathing.) - HEENT HEENT: PERRL, EOMI, Pharynx benign - Neck Neck: Supple, no meningeal sign, No bony TTP - Cardiac Cardiac: RRR, No murmur, Other (No clear murmur but hard to make out the details given loud and rhonchorous breath sounds.) - Respiratory Respiratory: Other (Tachypneic with increased I:E ratio, pursed lip breathing, wheezing and rhonchorous throughout.) - Abdomen Abdomen: Soft, Non tender - Back Back: No CVA TTP, No spinal TTP - Derm Derm: Normal color, Warm and dry - Extremities Extremities: Other (2+ pitting pedal edema bilaterally) - Neuro Eye Opening: Spontaneous Motor: Obeys Commands Verbal: Inappropriate GCS Score: 13 Results - Vitals Vitals: Vital Signs - 24 hr 12/09/18 12/09/18 12/09/18 20:34 20:49 21:02 Temperature 36.9 C 36.9 C Heart Rate 114 H 103 H 100 Respiratory 24 31 H 20 Rate Blood Pressure 158/49 H 158/49 H O2 Saturation 92 100 12/09/18 21:40 Temperature Heart Rate 110 H Respiratory 18 Rate Blood Pressure 128/80 O2 Saturation 99 Oxygen O2 Source BIPAP - EKG (time done) 2052 Rate: Rate (enter#) (102) Rhythm: Sinus tachycardia [place]: Normal Intervals: Normal DE Ischemia: Q waves (inferior) Computer interpretation: Agree with computer - Labs Labs: Laboratory Tests 12/09/18 12/09/18 12/09/18 20:42 20:42 20:42 WBC 8.4 RBC 3.92 L Hgb 11.3 L Hct 35.0 L MCV 89.3 MCH 28.8 MCHC 32.3 RDW 16.4 H Plt Count 275 MPV 6.3 L Neut # (Auto) 5.8 Lymph # (Auto) 1.4 L [place] # (Auto) 0.9 Eos # (Auto) 0.2 Baso # (Auto) 0.1 Absolute Nucleated RBC 0.00 Nucleated RBC % 0.0 PT 15.6 H INR 1.4 H D-Dimer VBG pH VBG pCO2 VBG pO2 VBG HCO3 VBG Total CO2 VBG O2 Saturation VBG Base Excess Sodium 137 Potassium 3.5 Chloride 87 L Carbon Dioxide 42 H* Anion Gap 8.0 BUN 9 Creatinine 0.5 Estimated GFR (MDRD) 123 Glucose 138 H Lactic Acid Calcium 8.4 L Total Bilirubin 0.8 AST 22 ALT 13 Alkaline Phosphatase 62 Total Creatine Kinase 17 L CK-MB (CK-2) Troponin I B-Natriuretic Peptide Total Protein 6.5 L Albumin 3.0 L Globulin 3.5 Albumin/Globulin Ratio 0.9 L Lipase 22 12/09/18 12/09/18 12/09/18 20:42 20:42 20:42 WBC RBC Hgb Hct MCV MCH MCHC RDW Plt Count MPV Neut # (Auto) Lymph # (Auto) [place] # (Auto) Eos # (Auto) Baso # (Auto) Absolute Nucleated RBC Nucleated RBC % PT INR D-Dimer 244.5 VBG pH VBG pCO2 VBG pO2 VBG HCO3 VBG Total CO2 VBG O2 Saturation VBG Base Excess Sodium Potassium Chloride Carbon Dioxide Anion Gap BUN Creatinine Estimated GFR (MDRD) Glucose Lactic Acid Calcium Total Bilirubin AST ALT Alkaline Phosphatase Total Creatine Kinase CK-MB (CK-2) 1.1 Troponin I 0.04 B-Natriuretic Peptide 90 Total Protein Albumin Globulin Albumin/Globulin Ratio Lipase 12/09/18 12/09/18 21:10 21:10 WBC RBC Hgb Hct MCV MCH MCHC RDW Plt Count MPV Neut # (Auto) Lymph # (Auto) [place] # (Auto) Eos # (Auto) Baso # (Auto) Absolute Nucleated RBC Nucleated RBC % PT INR D-Dimer VBG pH 7.359 VBG pCO2 77.4 H VBG pO2 71.2 H VBG HCO3 42.6 H VBG Total CO2 45.0 H VBG O2 Saturation 94.3 H VBG Base Excess 13.9 H Sodium Potassium Chloride Carbon Dioxide Anion Gap BUN Creatinine Estimated GFR (MDRD) Glucose Lactic Acid 1.3 Calcium Total Bilirubin AST ALT Alkaline Phosphatase Total Creatine Kinase CK-MB (CK-2) Troponin I B-Natriuretic Peptide Total Protein Albumin Globulin Albumin/Globulin Ratio Lipase PD MEDICAL DECISION MAKING - ED course ED course: This is a 68-year-old woman who presents by ambulance for apparent terrible COPD exacerbation. She is already a pulmonary cripple basically at baseline. She had received a DuoNeb in route with improvement in her saturations. But she still seems to be hypercarbic with regard to her mental status. Review of the chart shows that she had requested to be full code in the past and she was placed on BiPAP which she tolerated. She was given 3 [id number] albuterol nebs in the department and also Solu-Medrol. Chest x-ray demonstrates a right basilar pneumonia which would be hospital-acquired. Blood cultures were obtained and she was administered cefepime and Levaquin. Spoke with Dr. Abiel bueno for admission at 10:08 PM. - Critical Care Time(min): 45 Time Includes: Direct patient care, Review records, Reassess patient, Document care, Coordinate care, Medical consult Data interpretation: Labs, Pulse ox Procedures included in critical care time: Peripheral IV Procedures excluded from critical care time: EKG Departure - Departure Disposition: [facility] DC/Xfer Clinical Impression: Severe chronic obstructive pulmonary disease, Oxygen dependent Pneumonia Qualifiers: Pneumonia type: due to unspecified organism Laterality: right Lung location: lower lobe of lung Qualified Code(s): J18.1 - Lobar pneumonia, unspecified organism Condition: Critical
[2018-12-09 20:51] LABS: BASOPHILS # (AUTO) 0.1 10^3/uL (0.0-0.1); BASOPHILS % (AUTO) 0.6 %; EOSINOPHILS # (AUTO) 0.2 10^3/uL (0.0-0.7); EOSINOPHILS % (AUTO) 2.8 %; HGB - HEMOGLOBIN 11.3 g/dL (12.0-16.0); LYMPHOCYTES # (AUTO) 1.4 10^3/uL (1.5-3.5); LYMPHOCYTES % (AUTO) 16.7 %; MEAN CORPUSCULAR HEMOGLOBIN 28.8 pg (27.0-31.0); MEAN CORPUSCULAR HGB CONC 32.3 g/dL (32.0-36.0); MEAN CORPUSCULAR VOLUME 89.3 fL (81.0-99.0); MEAN PLATELET VOLUME 6.3 fL (7.9-10.8); MONOCYTES # (AUTO) 0.9 10^3/uL (0.0-1.0); MONOCYTES % (AUTO) 10.5 %; NEUTROPHILS # (AUTO) 5.8 10^3/uL (1.5-6.6); NEUTROPHILS % (AUTO) 69.4 %; PLT - PLATELET COUNT 275 10^3/uL (130-450); RED BLOOD COUNT 3.92 10^6/uL (4.20-5.40); RED CELL DISTRIBUTION WIDTH 16.4 % (12.0-15.0); WHITE BLOOD COUNT 8.4 x10^3/uL (4.8-10.8)
[2018-12-09 20:56] LABS: INR 1.4 (0.8-1.2); PT - PROTHROMBIN TIME 15.6 secs (9.9-12.6)
[2018-12-09 21:09] LABS: TROPONIN I 0.04 ng/mL (<0.49)
[2018-12-09 21:11] LABS: CREATINE KINASE MB 1.1 ng/mL (0.6-6.3)
[2018-12-09 21:18] LABS: ALBUMIN/GLOBULIN RATIO 0.9 (1.0-2.2); BILIRUBIN,TOTAL 0.8 mg/dL (0.2-1.0); CALCIUM 8.4 mg/dL (8.5-10.3); CREATININE 0.5 mg/dL (0.4-1.0); TOTAL PROTEIN 6.5 g/dL (6.7-8.2)
--- NOTE | 2018-12-09 21:28 | XRAY Report ---
Reason: dyspnea Procedure Date: 12/09/2018 Accession Number: [id number] / [id number] Procedure: XR - Chest 1 View X-Ray CPT Code: 01684 FULL RESULT: EXAM: CHEST RADIOGRAPHY EXAM DATE: 12/09/2018 08:54 PM. CLINICAL HISTORY: Shortness of breath for 2 days. COMPARISON: CHEST 1 VIEW 11/19/2018 1:12 PM. TECHNIQUE: 1 view. FINDINGS: Lungs/Pleura: Stable mild scarring in the bases, with new right base opacity and possible small effusion, otherwise no focal opacities evident. No left pleural effusion. No pneumothorax. Mediastinum: Within exam limitations, the cardiomediastinal contour is normal. Other: None. IMPRESSION: New right base opacity concerning for effusion with overlying atelectasis/infiltrate. RADIA
[2018-12-09 21:42] LABS: VBG PCO2 77.4 mmHg (41-51); VBG PH 7.359 (7.31-7.41); VBG PO2 71.2 mmHg (25-47)
[2018-12-09 21:43] LABS: VBG BASE EXCESS 13.9 mmol/L (-2 - +2)
[2018-12-09] MEDS ORDERED: CEFEPIME 2 GM in SODIUM CHLORIDE 0.9% MINIBAG 100 ML IV STA (21:48)
[2018-12-09] MEDS ORDERED: levoFLOXacin 750 MG/150 ML 750 MG/150 ML BAG IV STA (21:48)
[2018-12-09] MEDS ORDERED: MORPHINE 10 MG/ML VIAL IVP ONE (23:04)
[2018-12-10] MEDS: methylPREDNISolone SUCCINATE 40 MG/ML VIAL IVP SCH ×4 (00:05→22:13)
[2018-12-10] MEDS: SODIUM CHLORIDE FLUSH 0.9% 10 ML SYRINGE IVP SCH ×3 (00:06→14:56)
[2018-12-10] MEDS: IPRATROPIUM/ALBUTEROL 3 ML NEB INH PRN ×3 (01:37→15:00)
--- NOTE | 2018-12-10 02:09 | HISTORY & PHYSICAL EXAMINATION ---
Chief Complaint - Chief Complaint Chief Complaint: dyspnea, History of Present Illness - Admitted From Admitted From:: [facility] ED - History Obtained From Records Reviewed: Yes History obtained from: EMS via ED physician and chart - History of Present Illness HPI Comment/Other: Patient is a 68 y/o female who was brought to the ED via EMS with dyspnea. She currently unable to provide history due to her respiratory status and resulting encephalopathy. As a result, the history was obtained from ED physician. She is on 4L of Oxygen via nasal cannula baseline at home. It is reported that she was dyspneic yesterday and had a deSaturation in her oxygen level to 60%. She rebounded after breathing treatments. It recurred today with associated altered mental status so EMS was called. At bedside she is awake, responds to her name, accurately tells her date of but cannot tell where she is or recount the events that led to her presentation. She is currently on a bipap. She was recently discharged from the hospital on 11/24/18. Please see Dr. Shannen Webb's discharge summary of 11/24/18 for a detailed account of her hospital course during that stay and the conversations that transpired between the patient, her family and various members of the care team. To summarize, she has end stage COPD and there is the possibility of a neoplasm (pulmonary nodules). She also has pulmonary fibrosis and pulmonary hypertension. During the last admission she was treated for pneumonia with double coverage for Pseudomonas for which she has been positive in the past) with levaquin and zosyn. She is very well know to our care and most times she warrants ICU admission because of bipap needs. She has undergone extensive discussions with my colleague Dr Webb about her condition. She declines considering hospice and maintains her wish for a Full C ode Status even if it entails getting a tracheostomy. Her living situation and family dynamics are at best tenuous to the point of requiring Adult Protective Service's notification. History - Past Medical History Cardiovascular: reports: Hypertension Respiratory: reports: COPD, Pneumonia, Other Neuro: reports: Headaches Endocrine/Autoimmune: reports: None GI: reports: GERD, Cholelithiasis SUPERVISOR AGENCY APPOINTMENTS: reports: Other : reports: Frequency HEENT: reports: Chronic sinusitis Psych: reports: Depression, Anxiety Musculoskeletal: reports: Osteoarthritis, Fatigue Derm: reports: None MRSA Hx?: No - Past Surgical History General: reports: Cholecystectomy HEENT: reports: Tonsil/Adenoidectomy - Family & Social History Family History: Mother: , COPD/Emphysema, Father: , COPD/Emphysema Family History Comment/Other: Both of her mother and father in the late 60s early 70s. Mom smoked up until her and she of COPD complications. Dad also of COPD. She has 4 brothers and one sister. All of them live in [place] except except one who lives in the [facility]. She says that no one has diabetes, hypertension, heart disease, or emphysema. Of 3 children her youngest daughter with killed or under suspicious circumstances. Her other 2 children are healthy. Social History Notes: Patient is a woman who lives alone in [place]. She was born in [place] and is retired. She has two children. The patient has lived on [facility] since 1983. Prior to that she lived in the [facility]. The patient has a daughter and son both of whom live on [facility]. The patient quit smoking Around 2007 but smoked 1 pack a day for over 50 years Starting at the age of 17. The patient does drink 1 beer a night. In the past she has done marijuana. When she was to her first he was a cocaine addict and she tried cocaine a few times but she never used it on a regular basis. She has not used it since her 20s.She has a Viv worker that comes by every day except Monday and Monday. But the viv worker is only a few hours a day. Because of excessive breathlessness, end-stage lung disease, she has become homebound over the last year - Substance History Use: Uses substance without health or social issues: NONE (Quit smoking but previously smoked 1PPD for over 50 years), Alcohol (1 beer a night) - POLST Patient has POLST: No POLST Status: Full Code Meds/Allgy - Home Medications Home Medications: Ambulatory Orders Medication Instructions Recorded Confirmed Albuterol Sulfate [Proair Hfa 1 puffs INH Q6H PRN 08/31/16 12/09/18 Inhaler] Atorvastatin Calcium 20 mg PO QPM 07/18/18 12/09/18 Morphine Sulfate [Morphine Sulf 5 mg PO Q2H PRN 10/19/18 12/09/18 Oral (Roxanol)] Polyethylene Glycol 3350 [Miralax] 17 g PO DAILY 10/19/18 12/09/18 Loratadine 1 cap PO DAILY PRN 10/30/18 12/09/18 Valsartan [Diovan] 1 tab PO DAILY 10/30/18 12/09/18 Albuterol 2.5 mg INH Q4H PRN 11/19/18 12/09/18 Fluticasone [Flonase] 1 sprays PAULINE BID PRN 11/19/18 12/09/18 dilTIAZem HCl [Diltiazem 24Hr ER] 120 mg PO DAILY 11/19/18 11/27/18 Acetaminophen [Tylenol] 650 mg PO Q4HR PRN tablet 11/22/18 12/09/18 Levofloxacin [Levaquin] 750 mg PO DAILY #7 tablet 11/22/18 11/27/18 Methylprednisolone [Medrol] 4 mg PO UD #1 tab.ds.pk 11/22/18 12/09/18 Sertraline [Zoloft] 50 mg PO DAILY tablet 11/22/18 12/09/18 amLODIPine [Norvasc] 5 mg PO DAILY 11/27/18 12/09/18 - Allergies Allergies/Adverse Reactions: Allergies Allergy/AdvReac Type Severity Reaction Status Date / Time No Known Drug Allergies Allergy Verified 12/09/18 20:58 Review of Systems - All Other Systems All Other Systems: reports: Other (Limited ROS because patient is currently not a reliable historian 2/2 encephalopathy, related to underlying medical condition) Prior Level of Functionality: Cannot determine at the moment But likely limited due to end stage COPD Patient is on 4L oxygen at baseline at home Exam - Vital Signs Reviewed Vital Signs: Yes Vital Signs: Vital Signs x48h Temp Pulse Pulse Resp BP BP Pulse Ox 12/10/18 01:00 95 26 H 136/58 H 92 12/09/18 23:28 105 H 12/09/18 23:25 37.4 C 110 H 19 147/71 H 94 12/09/18 23:09 115 H 21 146/48 H 100 12/09/18 22:40 101 H 18 128/41 L 99 12/09/18 22:17 109 H 22 138/55 H 100 12/09/18 21:40 110 H 18 128/80 99 12/09/18 21:02 100 20 12/09/18 20:49 36.9 C 103 H 31 H 158/49 H 100 12/09/18 20:34 36.9 C 114 H 24 158/49 H 92 - Physical Exam General Appearance: positive: Severe distress, Lethargic Eyes Bilateral: positive: Normal inspection, PERRL, EOMI ENT: positive: ENT inspection nml, No signs of dehydration Neck: positive: Nml inspection, No JVD, Trachea midline Respiratory: positive: Wheezes, Other (dyspneic Decreased air movement) Cardiovascular: positive: Tachycardia Abdomen: positive: Non-tender, No organomegaly, Nml bowel sounds, No distention. negative: Guarding, Rebound Extremities: positive: Pedal edema (2+ bilateral pitting edema Left lower ext mildly hyperemic) Neurologic/Psychiatric: positive: Disoriented to place, Disoriented to time Sepsis Event Note (H) - Evaluation Possible source of Sepsis: positive: Pulmonary - Sepsis Criteria Sepsis Criteria: Recorded Heart Rate greater than 90 bpm, Recorded Respiratory Rate greater than 20, Respiratory: Increasing oxygen requirements Conclusion/Plan - Problem List (1) Acute exacerbation of chronic obstructive pulmonary disease (COPD) Conclusion/Plan: Patient given solumedrol 125mg IV in the ED. Will continue at 40mg IV q6hrs Duoneb ordered q4hrs Patient admitted to IC on bipap. Will recheck ABG in the am (2) Acute respiratory failure with hypoxia and hypercapnia Conclusion/Plan: 2/2 COPD exacerbation Treating by addressing COPD On bipap currently (3) Pneumonia Conclusion/Plan: Will consider as hospital associated, Given recent hospital admission On empiric levaquin and cefepime Previous history of pneumonia with Pseudomonas Qualifiers: Pneumonia type: due to unspecified organism Laterality: right Lung location: lower lobe of lung Qualified Code(s): J18.1 - Lobar pneumonia, unspecified organism (4) Encephalopathy acute Conclusion/Plan: Likely 2/2 Hypercapneic state from COPD exacerbation Currently on bipap in the ICU. Expect improvement in mentation with improvement in respiratory status (5) Pulmonary hypertension Conclusion/Plan: Chronic Patient has pulmonary fibrosis (6) Depression Conclusion/Plan: On zoloft at home Qualifiers: Depression Type: unspecified Qualified Code(s): F32.9 - Major depressive disorder, single episode, unspecified (7) Anxiety Conclusion/Plan: Probable acutely confounded by bipap Ativan 0.5mg IV q4hrs prn ordered (8) Chronic pain Conclusion/Plan: On roxanol at home. Patient given morphine 2mg IV X 1 Will resume home med when appropriate Qualifiers: Chronic pain type: chronic pain syndrome Qualified Code(s): G89.4 - Chronic pain syndrome (9) Hypertension Conclusion/Plan: On amlodipine, diltiazem and valsartan Qualifiers: Hypertension type: essential hypertension Qualified Code(s): I10 - Essenti al (primary) hypertension (10) Hyperlipemia Conclusion/Plan: On atorvastatin - Lab Results Fish Bones: 12/09/18 20:42 12/09/18 20:42 Core Measures - Anticipated LOS I expect patient to be DC'd or transferred within 96 hours.: Yes - DVT/VTE - Prophylaxis VTE/DVT Device ordered at admit?: Yes VTE/DVT Prophylaxis med ordered at admit?: Yes
[2018-12-10] MEDS ORDERED: FUROSEMIDE 20 MG/2 ML VIAL IVP STA (02:26)
[2018-12-10 04:40] LABS: BASOPHILS % (AUTO) 0.1 %; HGB - HEMOGLOBIN 10.5 g/dL (12.0-16.0); LYMPHOCYTES # (AUTO) 0.3 10^3/uL (1.5-3.5); LYMPHOCYTES % (AUTO) 5.5 %; MEAN CORPUSCULAR HEMOGLOBIN 28.3 pg (27.0-31.0); MEAN CORPUSCULAR HGB CONC 31.8 g/dL (32.0-36.0); MEAN CORPUSCULAR VOLUME 88.9 fL (81.0-99.0); MEAN PLATELET VOLUME 6.4 fL (7.9-10.8); MONOCYTES # (AUTO) 0.1 10^3/uL (0.0-1.0); MONOCYTES % (AUTO) 1.4 %; NEUTROPHILS # (AUTO) 5.2 10^3/uL (1.5-6.6); PLT - PLATELET COUNT 256 10^3/uL (130-450); RED CELL DISTRIBUTION WIDTH 16.5 % (12.0-15.0); WHITE BLOOD COUNT 5.6 x10^3/uL (4.8-10.8)
[2018-12-10 04:42] LABS: VBG BASE EXCESS 13.5 mmol/L (-2 - +2); VBG PCO2 67.8 mmHg (41-51); VBG PH 7.398 (7.31-7.41); VBG PO2 136.3 mmHg (25-47); VBG TOTAL CO2 42.9 mmol/L (24-29)
[2018-12-10 04:56] LABS: CALCIUM 8.1 mg/dL (8.5-10.3); CREATININE 0.5 mg/dL (0.4-1.0)
[2018-12-10 05:03] LABS: MAGNESIUM 1.9 mg/dL (1.7-2.8); PHOSPHORUS 4.5 mg/dL (2.5-4.6)
[2018-12-10] MEDS ORDERED: POTASSIUM CHLORIDE 20 MEQ TABLET PO ONE (06:00)
[2018-12-10 06:59] LABS: ABG HCO3 40.9 mmol/L (22.0-26.0); ABG PO2 79 mmHg (80-100)
[2018-12-10 07:00] LABS: ABG BASE EXCESS 13.5 mmol/L (-2.0-3.0); ABG OXYGEN SATURATION 96 % (94-98); ALLEN TEST POSITIVE
[2018-12-10 07:04] LABS: ABG PCO2 68 mmHg (34-45)
[2018-12-10] MEDS: CEFEPIME 2 GM in SODIUM CHLORIDE 0.9% MINIBAG 100 ML IV SCH ×2 (08:25→19:59)
[2018-12-10] MEDS: ENOXAPARIN 40 MG/0.4 ML SYRINGE SUBQ SCH (08:43)
[2018-12-10] MEDS ORDERED: amLODIPine 5 MG TABLET PO SCH (09:00)
[2018-12-10] MEDS: diltiaZEM CD 120 MG CAPSULE PO SCH (09:21)
[2018-12-10] MEDS: SERTRALINE 50 MG TABLET PO SCH (09:21)
[2018-12-10] MEDS ORDERED: FLUTICASONE NASAL SPRAY NAS PRN (10:03)
--- NOTE | 2018-12-10 10:11 | PROVIDER PROGRESS NOTE ---
Subjective - Prog Note Date Prog Note Date: 12/10/18 - Subjective Pt reports feeling: Improved (Awake enough to answer questions, take po meds this am and ask for food.) Objective - Vital Signs/Intake & Output Vital Signs: Vital Signs Temp Pulse Pulse Resp BP Pulse Ox 12/10/18 09:00 78 22 138/62 H 99 12/10/18 07:57 36.5 C 79 22 120/53 L 98 12/10/18 06:57 73 Intake & Output: Intake & Output 12/07/18 12/08/18 12/09/18 12/10/18 23:59 23:59 23:59 23:59 Intake Total 250 280 Output Total 200 Balance 250 80 - Objective General Appearance: positive: No acute distress Eyes Bilateral: positive: No lid inflammation Neck: positive: Other (Obese, cannot evaluate JVD) Respiratory: positive: Other (Poor airmovement, diminished diffusely, no wheezing or rales) Cardiovascular: positive: Regular rate & rhythm, Other (Distant heart sounds) Abdomen: positive: Other (Obese, cannot R/O organomegaly) Extremities: positive: Other (2+ edema to knees, no redness) - Lab Results Fish Bones: 12/10/18 04:30 12/10/18 04:30 Other Labs: Lab Results x24hrs 12/10/18 12/10/18 12/10/18 Range/Units 06:37 04:30 04:30 WBC (4.8-10.8) x10^3/uL RBC (4.20-5.40) 10^6/uL Hgb (12.0-16.0) g/dL Hct (37.0-47.0) % MCV (81.0-99.0) fL MCH (27.0-31.0) pg MCHC (32.0-36.0) g/dL RDW (12.0-15.0) % Plt Count (130-450) 10^3/uL MPV (7.9-10.8) fL Neut # (Auto) (1.5-6.6) 10^3/uL Lymph # (Auto) (1.5-3.5) 10^3/uL [place] # (Auto) (0.0-1.0) 10^3/uL Eos # (Auto) (0.0-0.7) 10^3/uL Baso # (Auto) (0.0-0.1) 10^3/uL Absolute Nucleated RBC x10^3/uL Nucleated RBC % /100WBC PT (9.9-12.6) secs INR (0.8-1.2) D-Dimer (200.0-255.0) ng/mL Bld Gas Analysis Time 0648 Sample Site LEFT RADIAL ABG pH 7.40 (7.35-7.45) ABG pCO2 68 H* (34-45) mmHg ABG pO2 79 L (80-100) mmHg ABG HCO3 40.9 H (22.0-26.0) mmol/L ABG Total CO2 43.0 H* (21.0-29.0) MMOL/L ABG O2 Saturation 96 (94-98) % ABG Base Excess 13.5 H (-2.0-3.0) mmol/L Heriberto Test POSITIVE VBG pH 7.398 (7.31-7.41) VBG pCO2 67.8 H (41-51) mmHg VBG pO2 136.3 H (25-47) mmHg VBG HCO3 40.9 H (23-28) mmol/L VBG Total CO2 42.9 H (24-29) mmol/L VBG O2 Saturation 98.7 H (60-80) % VBG Base Excess 13.5 H (-2 - +2) mmol/L O2 Delivery Device BiPAP O2 Liters/Min 40.00 LPM FiO2 95.00 Sodium (135-145) mmol/L Potassium (3.5-5.0) mmol/L Chloride (101-111) mmol/L Carbon Dioxide (21-32) mmol/L Anion Gap (6-13) BUN (6-20) mg/dL Creatinine (0.4-1.0) mg/dL Estimated GFR (MDRD) (>89) Glucose (70-100) mg/dL Lactic Acid (0.5-2.2) mmol/L Calcium (8.5-10.3) mg/dL Phosphorus 4.5 (2.5-4.6) mg/dL Magnesium 1.9 (1.7-2.8) mg/dL Total Bilirubin (0.2-1.0) mg/dL AST (10-42) IU/L ALT (10-60) IU/L Alkaline Phosphatase (42-121) IU/L Total Creatine Kinase (22-269) IU/L CK-MB (CK-2) (0.6-6.3) ng/mL Troponin I (<0.49) ng/mL B-Natriuretic Peptide (5-100) pg/mL Total Protein (6.7-8.2) g/dL Albumin (3.2-5.5) g/dL Globulin (2.1-4.2) g/dL Albumin/Globulin Ratio (1.0-2.2) Lipase (22-51) U/L Influenza A (Rapid) (Negative) Influenza B (Rapid) (Negative) 12/10/18 12/10/18 12/09/18 Range/Units 04:30 04:30 22:25 WBC 5.6 (4.8-10.8) x10^3/uL RBC 3.70 L (4.20-5.40) 10^6/uL Hgb 10.5 L (12.0-16.0) g/dL Hct 32.9 L (37.0-47.0) % MCV 88.9 (81.0-99.0) fL MCH 28.3 (27.0-31.0) pg MCHC 31.8 L (32.0-36.0) g/dL RDW 16.5 H (12.0-15.0) % Plt Count 256 (130-450) 10^3/uL MPV 6.4 L (7.9-10.8) fL Neut # (Auto) 5.2 (1.5-6.6) 10^3/uL Lymph # (Auto) 0.3 L (1.5-3.5) 10^3/uL [place] # (Auto) 0.1 (0.0-1.0) 10^3/uL Eos # (Auto) 0.0 (0.0-0.7) 10^3/uL Baso # (Auto) 0.0 (0.0-0.1) 10^3/uL Absolute Nucleated RBC 0.00 x10^3/uL Nucleated RBC % 0.0 /100WBC PT (9.9-12.6) secs INR (0.8-1.2) D-Dimer (200.0-255.0) ng/mL Bld Gas Analysis Time Sample Site ABG pH (7.35-7.45) ABG pCO2 (34-45) mmHg ABG pO2 (80-100) mmHg ABG HCO3 (22.0-26.0) mmol/L ABG Total CO2 (21.0-29.0) MMOL/L ABG O2 Saturation (94-98) % ABG Base Excess (-2.0-3.0) mmol/L Heriberto Test VBG pH (7.31-7.41) VBG pCO2 (41-51) mmHg VBG pO2 (25-47) mmHg VBG HCO3 (23-28) mmol/L VBG Total CO2 (24-29) mmol/L VBG O2 Saturation (60-80) % VBG Base Excess (-2 - +2) mmol/L O2 Delivery Device O2 Liters/Min LPM FiO2 Sodium 137 (135-145) mmol/L Potassium 3.4 L (3.5-5.0) mmol/L Chloride 88 L (101-111) mmol/L Carbon Dioxide 40 H* (21-32) mmol/L Anion Gap 9.0 (6-13) BUN 10 (6-20) mg/dL Creatinine 0.5 (0.4-1.0) mg/dL Estimated GFR (MDRD) 123 (>89) Glucose 173 H (70-100) mg/dL Lactic Acid (0.5-2.2) mmol/L Calcium 8.1 L (8.5-10.3) mg/dL Phosphorus (2.5-4.6) mg/dL Magnesium (1.7-2.8) mg/dL Total Bilirubin (0.2-1.0) mg/dL AST (10-42) IU/L ALT (10-60) IU/L Alkaline Phosphatase (42-121) IU/L Total Creatine Kinase (22-269) IU/L CK-MB (CK-2) (0.6-6.3) ng/mL Troponin I (<0.49) ng/mL B-Natriuretic Peptide (5-100) pg/mL Total Protein (6.7-8.2) g/dL Albumin (3.2-5.5) g/dL Globulin (2.1-4.2) g/dL Albumin/Globulin Ratio (1.0-2.2) Lipase (22-51) U/L Influenza A (Rapid) Negative (Negative) Influenza B (Rapid) Negative (Negative) 12/09/18 12/09/18 12/09/18 Range/Units 21:10 21:10 20:42 WBC (4.8-10.8) x10^3/uL RBC (4.20-5.40) 10^6/uL Hgb (12.0-16.0) g/dL Hct (37.0-47.0) % MCV (81.0-99.0) fL MCH (27.0-31.0) pg MCHC (32.0-36.0) g/dL RDW (12.0-15.0) % Plt Count (130-450) 10^3/uL MPV (7.9-10.8) fL Neut # (Auto) (1.5-6.6) 10^3/uL Lymph # (Auto) (1.5-3.5) 10^3/uL [place] # (Auto) (0.0-1.0) 10^3/uL Eos # (Auto) (0.0-0.7) 10^3/uL Baso # (Auto) (0.0-0.1) 10^3/uL Absolute Nucleated RBC x10^3/uL Nucleated RBC % /100WBC PT (9.9-12.6) secs INR (0.8-1.2) D-Dimer 244.5 (200.0-255.0) ng/mL Bld Gas Analysis Time Sample Site ABG pH (7.35-7.45) ABG pCO2 (34-45) mmHg ABG pO2 (80-100) mmHg ABG HCO3 (22.0-26.0) mmol/L ABG Total CO2 (21.0-29.0) MMOL/L ABG O2 Saturation (94-98) % ABG Base Excess (-2.0-3.0) mmol/L Heriberto Test VBG pH 7.359 (7.31-7.41) VBG pCO2 77.4 H (41-51) mmHg VBG pO2 71.2 H (25-47) mmHg VBG HCO3 42.6 H (23-28) mmol/L VBG Total CO2 45.0 H (24-29) mmol/L VBG O2 Saturation 94.3 H (60-80) % VBG Base Excess 13.9 H (-2 - +2) mmol/L O2 Delivery Device O2 Liters/Min LPM FiO2 Sodium (135-145) mmol/L Potassium (3.5-5.0) mmol/L Chloride (101-111) mmol/L Carbon Dioxide (21-32) mmol/L Anion Gap (6-13) BUN (6-20) mg/dL Creatinine (0.4-1.0) mg/dL Estimated GFR (MDRD) (>89) Glucose (70-100) mg/dL Lactic Acid 1.3 (0.5-2.2) mmol/L Calcium (8.5-10.3) mg/dL Phosphorus (2.5-4.6) mg/dL Magnesium (1.7-2.8) mg/dL Total Bilirubin (0.2-1.0) mg/dL AST (10-42) IU/L ALT (10-60) IU/L Alkaline Phosphatase (42-121) IU/L Total Creatine Kinase (22-269) IU/L CK-MB (CK-2) (0.6-6.3) ng/mL Troponin I (<0.49) ng/mL B-Natriuretic Peptide (5-100) pg/mL Total Protein (6.7-8.2) g/dL Albumin (3.2-5.5) g/dL Globulin (2.1-4.2) g/dL Albumin/Globulin Ratio (1.0-2.2) Lipase (22-51) U/L Influenza A (Rapid) (Negative) Influenza B (Rapid) (Negative) 12/09/18 12/09/18 12/09/18 Range/Units 20:42 20:42 20:42 WBC (4.8-10.8) x10^3/uL RBC (4.20-5.40) 10^6/uL Hgb (12.0-16.0) g/dL Hct (37.0-47.0) % MCV (81.0-99.0) fL MCH (27.0-31.0) pg MCHC (32.0-36.0) g/dL RDW (12.0-15.0) % Plt Count (130-450) 10^3/uL MPV (7.9-10.8) fL Neut # (Auto) (1.5-6.6) 10^3/uL Lymph # (Auto) (1.5-3.5) 10^3/uL [place] # (Auto) (0.0-1.0) 10^3/uL Eos # (Auto) (0.0-0.7) 10^3/uL Baso # (Auto) (0.0-0.1) 10^3/uL Absolute Nucleated RBC x10^3/uL Nucleated RBC % /100WBC PT (9.9-12.6) secs INR (0.8-1.2) D-Dimer (200.0-255.0) ng/mL Bld Gas Analysis Time Sample Site ABG pH (7.35-7.45) ABG pCO2 (34-45) mmHg ABG pO2 (80-100) mmHg ABG HCO3 (22.0-26.0) mmol/L ABG Total CO2 (21.0-29.0) MMOL/L ABG O2 Saturation (94-98) % ABG Base Excess (-2.0-3.0) mmol/L Heriberto Test VBG pH (7.31-7.41) VBG pCO2 (41-51) mmHg VBG pO2 (25-47) mmHg VBG HCO3 (23-28) mmol/L VBG Total CO2 (24-29) mmol/L VBG O2 Saturation (60-80) % VBG Base Excess (-2 - +2) mmol/L O2 Delivery Device O2 Liters/Min LPM FiO2 Sodium 137 (135-145) mmol/L Potassium 3.5 (3.5-5.0) mmol/L Chloride 87 L (101-111) mmol/L Carbon Dioxide 42 H* (21-32) mmol/L Anion Gap 8.0 (6-13) BUN 9 (6-20) mg/dL Creatinine 0.5 (0.4-1.0) mg/dL Estimated GFR (MDRD) 123 (>89) Glucose 138 H (70-100) mg/dL Lactic Acid (0.5-2.2) mmol/L Calcium 8.4 L (8.5-10.3) mg/dL Phosphorus (2.5-4.6) mg/dL Magnesium (1.7-2.8) mg/dL Total Bilirubin 0.8 (0.2-1.0) mg/dL AST 22 (10-42) IU/L ALT 13 (10-60) IU/L Alkaline Phosphatase 62 (42-121) IU/L Total Creatine Kinase 17 L (22-269) IU/L CK-MB (CK-2) 1.1 (0.6-6.3) ng/mL Troponin I 0.04 (<0.49) ng/mL B-Natriuretic Peptide 90 (5-100) pg/mL Total Protein 6.5 L (6.7-8.2) g/dL Albumin 3.0 L (3.2-5.5) g/dL Globulin 3.5 (2.1-4.2) g/dL Albumin/Globulin Ratio 0.9 L (1.0-2.2) Lipase 22 (22-51) U/L Influenza A (Rapid) (Negative) Influenza B (Rapid) (Negative) 12/09/18 12/09/18 Range/Units 20:42 20:42 WBC 8.4 (4.8-10.8) x10^3/uL RBC 3.92 L (4.20-5.40) 10^6/uL Hgb 11.3 L (12.0-16.0) g/dL Hct 35.0 L (37.0-47.0) % MCV 89.3 (81.0-99.0) fL MCH 28.8 (27.0-31.0) pg MCHC 32.3 (32.0-36.0) g/dL RDW 16.4 H (12.0-15.0) % Plt Count 275 (130-450) 10^3/uL MPV 6.3 L (7.9-10.8) fL Neut # (Auto) 5.8 (1.5-6.6) 10^3/uL Lymph # (Auto) 1.4 L (1.5-3.5) 10^3/uL [place] # (Auto) 0.9 (0.0-1.0) 10^3/uL Eos # (Auto) 0.2 (0.0-0.7) 10^3/uL Baso # (Auto) 0.1 (0.0-0.1) 10^3/uL Absolute Nucleated RBC 0.00 x10^3/uL Nucleated RBC % 0.0 /100WBC PT 15.6 H (9.9-12.6) secs INR 1.4 H (0.8-1.2) D-Dimer (200.0-255.0) ng/mL Bld Gas Analysis Time Sample Site ABG pH (7.35-7.45) ABG pCO2 (34-45) mmHg ABG pO2 (80-100) mmHg ABG HCO3 (22.0-26.0) mmol/L ABG Total CO2 (21.0-29.0) MMOL/L ABG O2 Saturation (94-98) % ABG Base Excess (-2.0-3.0) mmol/L Heriberto Test VBG pH (7.31-7.41) VBG pCO2 (41-51) mmHg VBG pO2 (25-47) mmHg VBG HCO3 (23-28) mmol/L VBG Total CO2 (24-29) mmol/L VBG O2 Saturation (60-80) % VBG Base Excess (-2 - +2) mmol/L O2 Delivery Device O2 Liters/Min LPM FiO2 Sodium (135-145) mmol/L Potassium (3.5-5.0) mmol/L Chloride (101-111) mmol/L Carbon Dioxide (21-32) mmol/L Anion Gap (6-13) BUN (6-20) mg/dL Creatinine (0.4-1.0) mg/dL Estimated GFR (MDRD) (>89) Glucose (70-100) mg/dL Lactic Acid (0.5-2.2) mmol/L Calcium (8.5-10.3) mg/dL Phosphorus (2.5-4.6) mg/dL Magnesium (1.7-2.8) mg/dL Total Bilirubin (0.2-1.0) mg/dL AST (10-42) IU/L ALT (10-60) IU/L Alkaline Phosphatase (42-121) IU/L Total Creatine Kinase (22-269) IU/L CK-MB (CK-2) (0.6-6.3) ng/mL Troponin I (<0.49) ng/mL B-Natriuretic Peptide (5-100) pg/mL Total Protein (6.7-8.2) g/dL Albumin (3.2-5.5) g/dL Globulin (2.1-4.2) g/dL Albumin/Globulin Ratio (1.0-2.2) Lipase (22-51) U/L Influenza A (Rapid) (Negative) Influenza B (Rapid) (Negative) Sepsis Event Note (H) - Evaluation Current Stage of Sepsis: Resolved Possible source of Sepsis: positive: Pulmonary - Sepsis Criteria Sepsis Criteria: Recorded Heart Rate greater than 90 bpm, Recorded Respiratory Rate greater than 20, Respiratory: Increasing oxygen requirements, CREDIT UNION MANAGER: altered consciousness (unrelated to primary neuro pathology) Assessment/Plan - Problem List (1) Acute respiratory failure with hypoxia and hypercapnia Impression: She required BIPAP in the ICU to treat severe hypoxia, desturations, and hypoventilation possibly from respiratory fatigue. BNP was normal, ruling out CHF. The hypercapnia resolved and she is more awake this a.m. Continue oxymask or resume BIPAP if she fatigues, with supplemental O2, keeping O2 sats> 88%. Discussed with her RN and RT. Will advance her diet, now that she is awake. Continue iv steroids, will increase the dose from Solumedrol 40 mg iv q6h to 80 mg iv q8h. Add Budesonide inhaled steroid, continue Duoneb. Treat HCAP with empiric iv antibiotics. (2) Acute exacerbation of chronic obstructive pulmonary disease (COPD) Impression: The patient has known severe COPD and is oxygen dependant. She has a Trilogy mask at home but only uses it as a face mask, since she cannot tolerate masks due to anxiety. Continue iv steroids, nebs, O2 and treat HCAP. (3) HCAP (healthcare-associated pneumonia) Impression: Blood cultures were sent off from ER, will order sputum culture if she can produce a sample. Pt started on empiric iv antibiotics, to cover Pseudomonas, since she was just hospitalized 2 and 1/2 weeks ago. (4) Anxiety disorder Impression: Continue her po Zoloft and Ativan iv was ordered prn. She has a known difficult home situation, as there have been overt arguments with family members visiting her on past admissions and APS calls in her past history. 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 She even had a Palliative Care consult with Nalini Dejesus NP several months ago, and the patient refused palliative care management. (6) Hypertension Impression: Her po BP meds were restarted, but she is not on Valsartan and Amlodipine, just Diltiazem. Will order accordingly. Qualifiers: Hypertension type: essential hypertension Qualified Code(s): I10 - Essential (primary) hypertension (7) Obesity (BMI 30.0-34.9) Impression: Her frequent need for steroids and immobility due to SOB, have added to this. No DM however.
[2018-12-10] MEDS: NYSTATIN CREAM 15 GM TUBE TOP SCH ×2 (13:00→20:37)
[2018-12-10] MEDS: SODIUM CHLORIDE FLUSH 0.9% 10 ML SYRINGE IVP PRN (20:00)
[2018-12-10] MEDS: ATORVASTATIN 10 MG TABLET PO SCH (20:38)
[2018-12-10] MEDS: levoFLOXacin 750 MG/150 ML 750 MG/150 ML BAG IV SCH (22:14)
[2018-12-10] MEDS ORDERED: CEFEPIME 2 GM in SODIUM CHLORIDE 0.9% MINIBAG 100 ML IV SCH (23:00)
[2018-12-10] MEDS: BUDESONIDE 0.5 MG/2 ML NEB INH SCH (23:30)
[2018-12-11] MEDS: SODIUM CHLORIDE FLUSH 0.9% 10 ML SYRINGE IVP SCH ×4 (00:18→23:15)
[2018-12-11] MEDS: methylPREDNISolone SUCCINATE 40 MG/ML VIAL IVP SCH ×3 (05:55→21:26)
[2018-12-11] MEDS: SODIUM CHLORIDE FLUSH 0.9% 10 ML SYRINGE IVP PRN ×5 (05:56→19:44)
[2018-12-11] MEDS: MIN OIL/DIMETHICON/COCONUT OIL 92 GM TUBE TOP PRN ×2 (06:20→14:57)
[2018-12-11] MEDS ORDERED: MORPHINE 10 MG/ML VIAL IVP PRN (06:28)
[2018-12-11] MEDS ORDERED: MORPHINE 2 MG/ML CARPUJECT ONE (06:32)
[2018-12-11] MEDS: IPRATROPIUM/ALBUTEROL 3 ML NEB INH PRN ×4 (06:49→19:57)
[2018-12-11] MEDS: BUDESONIDE 0.5 MG/2 ML NEB INH SCH ×2 (06:49→19:57)
[2018-12-11 07:47] LABS: BASOPHILS % (AUTO) 0.2 %; HGB - HEMOGLOBIN 10.4 g/dL (12.0-16.0); LYMPHOCYTES # (AUTO) 0.4 10^3/uL (1.5-3.5); MEAN CORPUSCULAR HEMOGLOBIN 29.6 pg (27.0-31.0); MEAN CORPUSCULAR HGB CONC 33.9 g/dL (32.0-36.0); MEAN CORPUSCULAR VOLUME 87.3 fL (81.0-99.0); MEAN PLATELET VOLUME 6.5 fL (7.9-10.8); MONOCYTES # (AUTO) 0.2 10^3/uL (0.0-1.0); MONOCYTES % (AUTO) 2.4 %; NEUTROPHILS # (AUTO) 7.8 10^3/uL (1.5-6.6); NEUTROPHILS % (AUTO) 92.4 %; PLT - PLATELET COUNT 269 10^3/uL (130-450); RED BLOOD COUNT 3.51 10^6/uL (4.20-5.40); RED CELL DISTRIBUTION WIDTH 16.6 % (12.0-15.0); WHITE BLOOD COUNT 8.4 x10^3/uL (4.8-10.8)
[2018-12-11] MEDS: CEFEPIME 2 GM in SODIUM CHLORIDE 0.9% MINIBAG 100 ML IV SCH ×2 (07:49→19:43)
[2018-12-11 07:57] LABS: CALCIUM 8.1 mg/dL (8.5-10.3); CREATININE 0.4 mg/dL (0.4-1.0)
[2018-12-11 08:18] LABS: PHOSPHORUS 3.2 mg/dL (2.5-4.6)
[2018-12-11] MEDS ORDERED: POTASSIUM CHLORIDE 20 MEQ TABLET PO ONE ×2 (08:23→08:25)
[2018-12-11] MEDS: diltiaZEM CD 120 MG CAPSULE PO SCH (08:47)
[2018-12-11] MEDS: SERTRALINE 50 MG TABLET PO SCH (08:47)
[2018-12-11] MEDS ORDERED: POTASSIUM CHLORIDE 20 MEQ/15 ML UDC PO SCH (09:00)
[2018-12-11] MEDS ORDERED: VALSARTAN PO SCH (09:00)
[2018-12-11] MEDS: ENOXAPARIN 40 MG/0.4 ML SYRINGE SUBQ SCH (09:20)
[2018-12-11] MEDS: POTASSIUM CHLORIDE 10 MEQ CAPSULE PO SCH ×2 (09:27→12:09)
[2018-12-11] MEDS: MORPHINE 2 MG/ML CARPUJECT IVP PRN ×3 (10:10→18:35)
--- NOTE | 2018-12-11 11:29 | PROVIDER PROGRESS NOTE ---
Subjective - Prog Note Date Prog Note Date: 12/11/18 Prog Note Time: 11:31 - Subjective Pt reports feeling: Improved Subjective: She is upright in the bed. Eating breakfast. Watching TV. A quiet reserved personality. Appropriate in her conversations. With last admission, of we rolled her over in bed to clean her, she would d esaturate to 70s with her 4 L on. With this admission, just sitting her up resulted in a O2 sat of 85% on 4 L. So her respiratory status continues to be quite tenuous with just moving her in bed. No fevers overnight. Vitals stable. Current Medications - Current Medications Current Medications: Active Medications Albuterol/Ipratropium (Duoneb) 3 ml INH Q4HR PRN PRN Reason: Wheezing Last Admin: 12/11/18 06:49 Dose: 3 ml Atorvastatin Calcium (Lipitor) 20 mg PO QPM [facility] Last Admin: 12/10/18 20:38 Dose: 20 mg Budesonide (Pulmicort) 0.5 mg INH RTBID [facility] Last Admin: 12/11/18 06:49 Dose: 0.5 mg Diltiazem HCl (Cardizem Cd) 120 mg PO DAILY [facility] Last Admin: 12/11/18 08:47 Dose: 120 mg Enoxaparin Sodium (Lovenox) 40 mg SUBQ DAILY [facility] Last Admin: 12/11/18 09:20 Dose: 40 mg Fluticasone Propionate (Flonase) 1 sprays PAULINE BID PRN PRN Reason: Allergy Symptoms Levofloxacin (Levaquin 750 Mg/150 Ml) 750 mg in 150 mls @ 100 mls/hr IV Q24H [facility] Last Infusion: 12/11/18 00:18 Dose: Infused Cefepime HCl 2 gm/ Sodium (Chloride) 100 mls @ 200 mls/hr IV Q12H [facility] Last Infusion: 12/11/18 08:25 Dose: Infused Lorazepam (Ativan Inj (Vial)) 0.5 mg IVP Q6H PRN PRN Reason: Anxiety Methylprednisolone (Solu-Medrol (40mg Vial)) 80 mg IVP Q8HR [facility] Last Admin: 12/11/18 05:55 Dose: 80 mg Mineral Oil (Cavilon) 1 applic TOP PRN PRN PRN Reason: Skin Care Last Admin: 12/11/18 06:20 Dose: 1 applic Morphine Sulfate (Morphine (Carpuject)) 2 mg IVP Q4H PRN PRN Reason: Dyspnea Last Admin: 12/11/18 10:10 Dose: 2 mg Nystatin (Mycostatin Cream) 1 applic TOP BID [facility] Last Admin: 12/10/18 20:37 Dose: 1 applic Potassium Chloride (Micro-K) 40 meq PO DAILYWM [facility] Last Admin: 12/11/18 09:27 Dose: 20 meq Sertraline HCl (Zoloft) 50 mg PO DAILY [facility] Last Admin: 12/11/18 08:47 Dose: 50 mg Sodium Chloride (Normal Saline Flush 0.9%) 10 ml IVP 0100,0900,1700 [facility] Last Admin: 12/11/18 08:49 Dose: 20 ml Sodium Chloride (Normal Saline Flush 0.9%) 10 ml IVP PRN PRN PRN Reason: NEEDED PER PROVIDER ORDERS Last Admin: 12/11/18 10:10 Dose: 10 ml Albuterol Sulfate [Proair Hfa Inhaler] 1 puffs INH Q6H PRN 08/31/16 Morphine Sulfate [Morphine Sulf Oral (Roxanol)] 5 mg PO Q2H PRN 10/19/18 Polyethylene Glycol 3350 [Miralax] 17 g PO DAILY 10/19/18 Albuterol 2.5 mg INH Q4H PRN 11/19/18 dilTIAZem HCl [Diltiazem 24Hr ER] 120 mg PO DAILY 11/19/18 Atorvastatin Calcium 20 mg PO QPM 12/10/18 Objective - Vital Signs/Intake & Output Reviewed Vital Signs: Yes Vital Signs: Vital Signs Temp Pulse Resp BP Pulse Ox 12/11/18 10:49 86 22 134/55 H 88 L 12/11/18 09:00 98 24 144/65 H 93 12/11/18 08:02 36.7 C 94 21 111/43 L 95 Intake & Output: Intake & Output 12/08/18 12/09/18 12/10/18 12/11/18 23:59 23:59 23:59 23:59 Intake Total 250 940 640 Output Total 800 750 Balance 250 140 -110 - Objective General Appearance: positive: No acute distress, Alert, Other (She is at her baseline with continued pursed lip breathing, increased tachypnea with speaking or eating at the same time. But she is a morbidly obese female, at her baseline. Oxymizer mask on.) Eyes Bilateral: positive: PERRL, EOMI ENT: positive: Pharynx nml Neck: negative: Stiff neck, Carotid bruit Respiratory: positive: Chest non-tender, Other (Her lung sounds are very quiet. You cannot hear any air moving. But there is no use of accessory muscles. No use of abdominal wall muscles to breathe. Again she pursed lipped brace.) Cardiovascular: positive: Regular rate & rhythm, Tachycardia (Occasional transfer text). negative: Gallop/S4, Friction rub Abdomen: positive: Non-tender, Nml bowel sounds, No distention, Other (Large obese pannus) Skin: positive: Warm, Dry Extremities: positive: Non-tender, Pedal edema Neurologic/Psychiatric: positive: Oriented x3, CN's nml (2-12), Motor nml, Weakness - Lab Results Fish Bones: 12/11/18 07:37 12/11/18 07:37 Other Labs: Lab Results x24hrs 12/11/18 12/11/18 12/11/18 Range/Units 07:37 07:37 07:37 WBC (4.8-10.8) x10^3/uL RBC (4.20-5.40) 10^6/uL Hgb (12.0-16.0) g/dL Hct (37.0-47.0) % MCV (81.0-99.0) fL MCH (27.0-31.0) pg MCHC (32.0-36.0) g/dL RDW (12.0-15.0) % Plt Count (130-450) 10^3/uL MPV (7.9-10.8) fL Neut # (Auto) (1.5-6.6) 10^3/uL Lymph # (Auto) (1.5-3.5) 10^3/uL Sharp # (Auto) (0.0-1.0) 10^3/uL Eos # (Auto) (0.0-0.7) 10^3/uL Baso # (Auto) (0.0-0.1) 10^3/uL Absolute Nucleated RBC x10^3/uL Nucleated RBC % /100WBC Sodium 137 (135-145) mmol/L Potassium 3.3 L (3.5-5.0) mmol/L Chloride 92 L (101-111) mmol/L Carbon Dioxide 37 H (21-32) mmol/L Anion Gap 8.0 (6-13) BUN 9 (6-20) mg/dL Creatinine 0.4 (0.4-1.0) mg/dL Estimated GFR (MDRD) 159 (>89) Glucose 165 H (70-100) mg/dL Calcium 8.1 L (8.5-10.3) mg/dL Phosphorus 3.2 (2.5-4.6) mg/dL Magnesium 2.0 (1.7-2.8) mg/dL Albumin 2.8 L (3.2-5.5) g/dL 12/11/18 Range/Units 07:37 WBC 8.4 (4.8-10.8) x10^3/uL RBC 3.51 L (4.20-5.40) 10^6/uL Hgb 10.4 L (12.0-16.0) g/dL Hct 30.6 L (37.0-47.0) % MCV 87.3 (81.0-99.0) fL MCH 29.6 (27.0-31.0) pg MCHC 33.9 (32.0-36.0) g/dL RDW 16.6 H (12.0-15.0) % Plt Count 269 (130-450) 10^3/uL MPV 6.5 L (7.9-10.8) fL Neut # (Auto) 7.8 H (1.5-6.6) 10^3/uL Lymph # (Auto) 0.4 L (1.5-3.5) 10^3/uL Sharp # (Auto) 0.2 (0.0-1.0) 10^3/uL Eos # (Auto) 0.0 (0.0-0.7) 10^3/uL Baso # (Auto) 0.0 (0.0-0.1) 10^3/uL Absolute Nucleated RBC 0.00 x10^3/uL Nucleated RBC % 0.0 /100WBC Sodium (135-145) mmol/L Potassium (3.5-5.0) mmol/L Chloride (101-111) mmol/L Carbon Dioxide (21-32) mmol/L Anion Gap (6-13) BUN (6-20) mg/dL Creatinine (0.4-1.0) mg/dL Estimated GFR (MDRD) (>89) Glucose (70-100) mg/dL Calcium (8.5-10.3) mg/dL Phosphorus (2.5-4.6) mg/dL Magnesium (1.7-2.8) mg/dL Albumin (3.2-5.5) g/dL Sepsis Event Note (H) - Evaluation Current Stage of Sepsis: Resolved Possible source of Sepsis: positive: Pulmonary - Sepsis Criteria Sepsis Criteria: Recorded Heart Rate greater than 90 bpm, Recorded Respiratory Rate greater than 20, Respiratory: Increasing oxygen requirements, PROCESSING OPERATOR: altered consciousness (unrelated to primary neuro pathology) Assessment/Plan - Problem List (1) Acute on chronic respiratory failure with hypoxia and hypercapnia Impression: Resolved. She required BIPAP in the ICU to treat severe hypoxia, desturations, and hypoventilation possibly from respiratory fatigue. BNP was normal, ruling out CHF. As her hypercapnia resolved, she became more awake on the morning of December 10. This morning she appears to be at baseline. She is sitting upright, Oxymizer mask on, and eating breakfast. Answering questions appropriately. Continue oxymask or resume BIPAP if she fatigues, with supplemental O2, keeping O2 sats> 88%. Discussed with her RN and RT. Continue iv steroids, will increase the dose from Solumedrol 40 mg iv q6h to 80 mg iv q8h. Add Budesonide inhaled steroid, continue Duoneb. Treat HCAP with empiric iv antibiotics. Day #3. We will plan on discharging tomorrow morning on oral antibiotics and tapered oral steroids. I have also left a message for [facility] consult line. I am asking pulmonology to discuss this case with me so that we can start planning for tracheostomy if appropriate. (2) Acute exacerbation of chronic obstructive pulmonary disease (COPD) Impression: The patient has known severe COPD and is oxygen dependant. She has a Trilogy mask at home but only uses it as a face mask, since she cannot tolerate masks due to anxiety. Continue iv steroids, nebs, O2 and treat HCAP. (3) HCAP (healthcare-associated pneumonia) Impression: She was noted to have sepsis criteria on admission. Those have resolved.Blood cultures have been negative. Sputum culture not ordered. Pt started on empiric iv antibiotics, to cover Pseudomonas, since she was just hospitalized 2 and 1/2 weeks ago. Day #3 (4) Anxiety disorder Impression: Continue her po Zoloft and Ativan iv was ordered prn. She has a known difficult home situation, as there have been overt arguments with family members visiting her on past admissions and APS calls in her past history. 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 She is a Full Code, despite having many Providers have discussions with her, on past admissions, about her poor prognosis and possibility of being on ventilator [employer], if she should get intubated. She even had a Palliative Care consult with Nalini Dejesus NP several months ago, and the patient refused palliative care management.CT scan done September 2018 shows that the spiculated mass in the right upper lung is slightly smaller than previous CTs. This may end up being just scar tissue. She has an appointment with oncology on December 25. (6) Hypertension Impression: Her po BP meds were restarted, but she is not on Valsartan and Amlodipine, just Diltiazem. Blood pressure 111 systolic to 143 systolic over the last 24 hours. She is on Cardizem CD for blood pressure and rate control. She was on valsartan and amlodipine. This was before last admission and part of discharge meds. We are attempting to control pulse and blood pressure. Since he is doing well with just Cardizem, will leave it at that. Qualifiers: Hypertension type: essential hypertension Qualified Code(s): I10 - Essential (primary) hypertension (7) Obesity (BMI 30.0-34.9) Impression: Her frequent need for steroids and immobility due to SOB, have added to this. No DM however.
[2018-12-11] MEDS: NYSTATIN CREAM 15 GM TUBE TOP SCH ×2 (14:56→21:26)
[2018-12-11] MEDS: ATORVASTATIN 10 MG TABLET PO SCH (21:25)
[2018-12-11] MEDS: levoFLOXacin 750 MG/150 ML 750 MG/150 ML BAG IV SCH (21:26)
[2018-12-12 05:08] LABS: BASOPHILS % (AUTO) 0.1 %; LYMPHOCYTES # (AUTO) 0.3 10^3/uL (1.5-3.5); LYMPHOCYTES % (AUTO) 4.9 %; MEAN CORPUSCULAR HEMOGLOBIN 28.3 pg (27.0-31.0); MEAN CORPUSCULAR HGB CONC 31.9 g/dL (32.0-36.0); MEAN CORPUSCULAR VOLUME 88.7 fL (81.0-99.0); MEAN PLATELET VOLUME 6.7 fL (7.9-10.8); MONOCYTES # (AUTO) 0.2 10^3/uL (0.0-1.0); MONOCYTES % (AUTO) 3.1 %; NEUTROPHILS # (AUTO) 6.2 10^3/uL (1.5-6.6); NEUTROPHILS % (AUTO) 91.9 %; PLT - PLATELET COUNT 278 10^3/uL (130-450); RED BLOOD COUNT 3.53 10^6/uL (4.20-5.40); RED CELL DISTRIBUTION WIDTH 16.6 % (12.0-15.0); WHITE BLOOD COUNT 6.8 x10^3/uL (4.8-10.8)
[2018-12-12 05:15] LABS: CALCIUM 8.3 mg/dL (8.5-10.3); CREATININE 0.4 mg/dL (0.4-1.0)
[2018-12-12] MEDS: methylPREDNISolone SUCCINATE 40 MG/ML VIAL IVP SCH ×2 (05:46→13:43)
[2018-12-12] MEDS: SODIUM CHLORIDE FLUSH 0.9% 10 ML SYRINGE IVP PRN ×4 (05:47→13:45)
[2018-12-12 05:55] LABS: ALBUMIN 2.7 g/dL (3.2-5.5); MAGNESIUM 2.1 mg/dL (1.7-2.8); PHOSPHORUS 3.1 mg/dL (2.5-4.6)
[2018-12-12] MEDS: MORPHINE 2 MG/ML CARPUJECT IVP PRN ×3 (06:07→17:21)
[2018-12-12] MEDS: MIN OIL/DIMETHICON/COCONUT OIL 92 GM TUBE TOP PRN (06:13)
[2018-12-12] MEDS: BUDESONIDE 0.5 MG/2 ML NEB INH SCH (06:45)
[2018-12-12] MEDS: IPRATROPIUM/ALBUTEROL 3 ML NEB INH PRN ×2 (06:45→10:38)
[2018-12-12] MEDS: CEFEPIME 2 GM in SODIUM CHLORIDE 0.9% MINIBAG 100 ML IV SCH (07:49)
[2018-12-12] MEDS: SERTRALINE 50 MG TABLET PO SCH (08:19)
[2018-12-12] MEDS: ENOXAPARIN 40 MG/0.4 ML SYRINGE SUBQ SCH (08:19)
[2018-12-12] MEDS: diltiaZEM CD 120 MG CAPSULE PO SCH (08:19)
[2018-12-12] MEDS: SODIUM CHLORIDE FLUSH 0.9% 10 ML SYRINGE IVP SCH ×2 (08:24→16:09)
[2018-12-12] MEDS: LORazepam 2 MG/ML VIAL IVP PRN ×2 (10:19→17:20)
--- NOTE | 2018-12-12 10:26 | PROVIDER PROGRESS NOTE ---
Subjective - Prog Note Date Prog Note Date: 12/12/18 Prog Note Time: 10:24 - Subjective Subjective: She is having more shortness of breath at rest. Struggling. She was able to eat about 75% of her breakfast before the attack it. We are in the midst of t corbining to get her home today. There is no clear transportation home so she would have to use BLS. She does not want to use BLS but acknowledges that she cannot get into any but his car to get out of the car. Were also still not sure where her care provider, her daughter, is. We have asked her to call [facility] to make sure [facility]ette know she is coming home but the patient has yet to do so. We is a lso just found out that [employer] fired the last [employer] worker that was taking care of Ms. Gurrola. APS has been called in on the case because there is no clear idea of who is at home with Ms. Gurrola. Ms. Gurrola continues to need 24/7 care. But refused to be placed. And wants to rely on her daughter, and [employer] workers to take care of her at home. Current Medications - Current Medications Current Medications: Active Medications Albuterol/Ipratropium (Duoneb) 3 ml INH Q4HR PRN PRN Reason: Wheezing Last Admin: 12/12/18 06:45 Dose: 3 ml Atorvastatin Calcium (Lipitor) 20 mg PO QPM [facility] Last Admin: 12/11/18 21:25 Dose: 20 mg Budesonide (Pulmicort) 0.5 mg INH RTBID [facility] Last Admin: 12/12/18 06:45 Dose: 0.5 mg Diltiazem HCl (Cardizem Cd) 120 mg PO DAILY [facility] Last Admin: 12/12/18 08:19 Dose: 120 mg Enoxaparin Sodium (Lovenox) 40 mg SUBQ DAILY [facility] Last Admin: 12/12/18 08:19 Dose: 40 mg Fluticasone Propionate (Flonase) 1 sprays PAULINE BID PRN PRN Reason: Allergy Symptoms Levofloxacin (Levaquin 750 Mg/150 Ml) 750 mg in 150 mls @ 100 mls/hr IV Q24H [facility] Last Infusion: 12/11/18 23:16 Dose: Infused Cefepime HCl 2 gm/ Sodium (Chloride) 100 mls @ 200 mls/hr IV Q12H [facility] Last Infusion: 12/12/18 08:30 Dose: Infused Lorazepam (Ativan Inj (Vial)) 0.5 mg IVP Q6H PRN PRN Reason: Anxiety Last Admin: 12/12/18 10:19 Dose: 0.5 mg Methylprednisolone (Solu-Medrol (40mg Vial)) 80 mg IVP Q8HR [facility] Last Admin: 12/12/18 05:46 Dose: 80 mg Mineral Oil (Cavilon) 1 applic TOP PRN PRN PRN Reason: Skin Care Last Admin: 12/12/18 06:13 Dose: 1 applic Morphine Sulfate (Morphine (Carpuject)) 1 mg IVP Q2H PRN PRN Reason: Dyspnea Last Admin: 12/12/18 10:13 Dose: 1 mg Nystatin (Mycostatin Cream) 1 applic TOP BID [facility] Last Admin: 12/11/18 21:26 Dose: 1 applic Potassium Chloride (Micro-K) 40 meq PO DAILYWM [facility] Last Admin: 12/11/18 12:09 Dose: 20 meq Sertraline HCl (Zoloft) 50 mg PO DAILY [facility] Last Admin: 12/12/18 08:19 Dose: 50 mg Sodium Chloride (Normal Saline Flush 0.9%) 10 ml IVP 0100,0900,1700 [facility] Last Admin: 12/12/18 08:24 Dose: 10 ml Sodium Chloride (Normal Saline Flush 0.9%) 10 ml IVP PRN PRN PRN Reason: NEEDED PER PROVIDER ORDERS Last Admin: 12/12/18 10:20 Dose: 10 ml Albuterol Sulfate [Proair Hfa Inhaler] 1 puffs INH Q6H PRN 08/31/16 Morphine Sulfate [Morphine Sulf Oral (Roxanol)] 5 mg PO Q2H PRN 10/19/18 Polyethylene Glycol 3350 [Miralax] 17 g PO DAILY 10/19/18 Albuterol 2.5 mg INH Q4H PRN 11/19/18 dilTIAZem HCl [Diltiazem 24Hr ER] 120 mg PO DAILY 11/19/18 Atorvastatin Calcium 20 mg PO QPM 12/10/18 Objective - Vital Signs/Intake & Output Reviewed Vital Signs: Yes Vital Signs: Vital Signs Temp Pulse Pulse Resp BP Pulse Ox 12/12/18 10:00 112 H 27 H 173/81 H 93 12/12/18 09:00 102 H 28 H 147/57 H 91 L 12/12/18 08:00 36.9 C 94 19 135/61 H 92 12/12/18 07:11 88 25 H 137/71 H 95 12/12/18 06:48 81 25 H 12/12/18 06:43 95 28 H 167/74 H 93 Intake & Output: Intake & Output 12/09/18 12/10/18 12/11/18 12/12/18 23:59 23:59 23:59 23:59 Intake Total 859 150 2857 470 Output Total 800 1050 300 Balance 250 140 720 170 - Objective General Appearance: positive: Alert, Moderate distress (Continues to purse lip breathe, but not using accessory muscles of chest wall and some of her abdominal wall. Unable to speak because of shortness of breath.) Eyes Bilateral: positive: PERRL, EOMI ENT: positive: Pharynx nml Neck: positive: No JVD. negative: Stiff neck, Carotid bruit Respiratory: positive: Chest non-tender, Other (No breath sounds. Very silent today. Sometimes you can hear a little bit in the right upper lung, but left lung is silent.) Cardiovascular: positive: Regular rate & rhythm, Tachycardia, Other (Very distant echoing cardiac tones). negative: Gallop/S4, Friction rub Abdomen: positive: Other (Large obese pannus, hypoactive bowel sounds, nontender. No ability to assess for organomegaly because of the large pannus.) Skin: positive: Warm, Dry Extremities: positive: Non-tender, Full ROM, No pedal edema Neurologic/Psychiatric: positive: Oriented x3, CN's nml (2-12). negative: Motor nml (No focal deficits, just severe generalized weakness. This woman used to be able to ambulate and hold onto the furniture in 2017, then was using a walker by 2018, and by the end of 2018 in bed or wheelchair. She is supposed to be able to sit up, stand to at least transfer to a wheelchair. Right now she is too weak to do so.) - Lab Results Fish Bones: 12/12/18 04:35 12/12/18 04:35 Other Labs: Lab Results x24hrs 01/12/12/18 12/12/18 Range/Units 04:35 04:35 04:35 WBC 6.8 (4.8-10.8) x10^3/uL RBC 3.53 L (4.20-5.40) 10^6/uL Hgb 10.0 L (12.0-16.0) g/dL Hct 31.3 L (37.0-47.0) % MCV 88.7 (81.0-99.0) fL MCH 28.3 (27.0-31.0) pg MCHC 31.9 L (32.0-36.0) g/dL RDW 16.6 H (12.0-15.0) % Plt Count 278 (130-450) 10^3/uL MPV 6.7 L (7.9-10.8) fL Neut # (Auto) 6.2 (1.5-6.6) 10^3/uL Lymph # (Auto) 0.3 L (1.5-3.5) 10^3/uL Gentry # (Auto) 0.2 (0.0-1.0) 10^3/uL Eos # (Auto) 0.0 (0.0-0.7) 10^3/uL Baso # (Auto) 0.0 (0.0-0.1) 10^3/uL Absolute Nucleated RBC 0.00 x10^3/uL Nucleated RBC % 0.0 /100WBC Sodium 139 (135-145) mmol/L Potassium 3.6 (3.5-5.0) mmol/L Chloride 91 L (101-111) mmol/L Carbon Dioxide 35 H (21-32) mmol/L Anion Gap 13.0 (6-13) BUN 12 (6-20) mg/dL Creatinine 0.4 (0.4-1.0) mg/dL Estimated GFR (MDRD) 159 (>89) Glucose 155 H (70-100) mg/dL Calcium 8.3 L (8.5-10.3) mg/dL Phosphorus 3.1 (2.5-4.6) mg/dL Magnesium 2.1 (1.7-2.8) mg/dL Albumin 2.7 L (3.2-5.5) g/dL Sepsis Event Note (H) - Evaluation Current Stage of Sepsis: Resolved Possible source of Sepsis: positive: Pulmonary - Sepsis Criteria Sepsis Criteria: Recorded Heart Rate greater than 90 bpm, Recorded Respiratory Rate greater than 20, Respiratory: Increasing oxygen requirements, PERFORMANCE TEST ARCHITECT: altered consciousness (unrelated to primary neuro pathology) Assessment/Plan - Problem List (1) Acute on chronic respiratory failure with hypoxia and hypercapnia Impression: Resolved As of yesterday. But this morning she is failing again. She required BIPAP in the ICU to treat severe hypoxia, desturations, and hypoventilation possibly from respiratory fatigue.She is still in the ICU. Off BiPAP for the last 36 hours. We will have to resume BiPAP this morning. BNP was normal, ruling out CHF. As her hypercapnia resolved, she became more awake on the morning of December 10. 12/11 she appears to be at baseline were she was sitting upright, Oxymizer mask on, and eating breakfast. Answering questions appropriately. Continued oxymask and we will resume BIPAP since fatigued, more hypoxic and tachypneic, with supplemental O2, keeping O2 sats> 88%. Discussed with her RN and RT. Continued iv steroids, will increase the dose from Solumedrol 40 mg iv q6h to 80 mg iv q8h. Add Budesonide inhaled steroid, continue Duoneb. Treat HCAP with empiric iv antibiotics. Day #4. We planned on discharging this morning on oral antibiotics and tapered oral steroids but she has decompensated quickly. Will have PT work with her to see if she can still sit to transfer. does not recommend tracheostomy at this time. Recommends waiting until she has respiratory arrest then decide from there. (2) Acute exacerbation of chronic obstructive pulmonary disease (COPD) Impression: The patient has known severe COPD and is oxygen dependant. She has a Trilogy mask at home but only uses it as a face mask, since she cannot tolerate masks due to anxiety. Continue iv steroids, nebs, O2 and treat HCAP. (3) HCAP (healthcare-associated pneumonia) Impression: She was noted to have sepsis criteria on admission. Those have resolved. Blood cultures have been negative. Sputum culture not ordered. Pt started on empiric iv antibiotics, to cover Pseudomonas, since she was just hospitalized 2 and 1/2 weeks ago. Day #4 (4) Anxiety disorder Impression: Continue her po Zoloft and Ativan iv was ordered prn. She has a known difficult home situation, as there have been overt arguments with family members visiting her on past admissions and APS calls in her past history. 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 She is a Full Code, despite having many Providers have discussions with her, on past admissions, about her poor prognosis and possibility of being on ventilator [facility], if she should get intubated. She even had a Palliative Care consult with Nalini Dejesus NP several months ago, and the patient refused palliative care management. CT scan done September 2018 shows that the spiculated mass in the right upper lung is slightly smaller than previous CTs. This may end up being just scar tissue. She has an appointment with oncology on December 25. (6) Hypertension Impression: Her po BP meds were restarted, but she is not on Valsartan and Amlodipine, just Diltiazem. Blood pressure 111 systolic to 143 systolic 12/10-12/11. Since midnight, blood pressure has been 135-173 systolic. 57-81 diastolic. She is on Cardizem CD for blood pressure and rate control. She was on valsartan and amlodipine. This was before last admission and part of discharge meds. We are attempting to control pulse and blood pressure. Since she is doing well with just Cardizem, will leave it at that. If blood pressure remains in the 160s 170s will add valsartan. Qualifiers: Hypertension type: essential hypertension Qualified Code(s): I10 - Essential (primary) hypertension
[2018-12-12] MEDS: NYSTATIN CREAM 15 GM TUBE TOP SCH (11:31)
--- NOTE | 2018-12-12 14:05 | Discharge Plan ---
"Discharge Plan for SNF / [facility] - Discharge Plan And Transition Orders Disposition: 03 SNF DC/Xfer Condition: Poor Allergies and Adverse Reactions: Allergies Allergy/AdvReac Type Severity Reaction Status Date / Time No Known Drug Allergies Allergy Verified 12/09/18 20:58 - SNF / RETIREMENT Transition Orders Admit to (Facility): [facility] Under the care of (Name): Gabriel Staton Discharge Diagnosis: 1. Acute on chronic respiratory failure with hypoxemia and hypercapnia 2. 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 Palliative care patient with LIANA Frederick 3. Right upper lobe spiculated lung nodule. This is known since June 2018. Not a candidate for biopsy because of severe upper lobe emphysema. Has an appointment with oncology, Ileana Bowles MD, December 25. Recent CT of the chest October 07, 2018 shows stable if not smaller nodule size. 4. Pulmonary hypertension 5. Depression 6. Chronic pain syndrome from back pain 7. Hypertension. She is on Cardizem to control blood pressure and rate. She is also on losartan and Norvasc. Blood pressure was low on admission, Norvasc and losartan held. Blood pressure 157/68 today. Resume losartan first. 8. Morbid obesity 9. Gastroesophageal reflux disease 10. Full CODE STATUS 11. Right basilar pneumonia, day #3 antibiotics, suggest 5 more days 12. Severe deconditioning due to dyspnea 13. Hyperglycemia secondary to steroids Medicare Certification Statement: I certify that [facility] care is medically necessary on a continuing basis for any of the conditions for which she/he is receiving care during hospitalization. Notify PCP of admission and forward orders to primary provider for signature. Weight on admission and: Weekly Call PCP immediately if weight increases by: 2.2 kg Other Notification Orders: Call PCP immediately if patient develops dyspnea, chest pain/tightness or edema. House Bowel Program: Yes Additional Bowel Program Orders: If no BM after 2 days, nurse may give M.O.M. 30ml PO PRN and/or ducolax Supp 1 [place] and/or PACHECO 250mg P.O., and/or senna 1-2 tabs PO. On day 3 nurse may give repeat above order until residents constipation is resolved. Annual Influenza Vaccine (between Jul 21 and February 17): Yes Two-step PPD per [facility] [phone] or approved exception documents: Yes Treatments & Other Orders: 4 L nasal cannula 12/06, suggest increased to 6 L if patient is to be mobile or move Lab Tests or X-ray Orders: BMP weekly, carbon dioxide should be followed as an indirect sign of hypercapnia Medication Orders: PLEASE REFER TO THE DISCHARGE MEDICATION LIST. Insulin Orders?: Yes - Medications New Prescriptions: Levofloxacin [Levaquin] 750 mg PO DAILY #5 tablet Methylprednisolone [Medrol] 4 mg PO UD #1 tab.ds.pk Morphine Sulfate [Morphine Sulf Oral (Roxanol)] 5 mg PO Q2H PRN #30 solution PRN Reason: Shortness Of Air/Wheezing - Diet Type: No added sugar Texture: Regular Liquids: Thin May have monthly special meal: Yes - Therapies | Activity Therapy: Evaluation | Treat if indicated: PT, OT Rehabilitation Potential: Return to independent living Activity: Activity as Tolerated Assistance Devices: Wheelchair, Walker Additional Instructions: Just rolling over in bed will cause her to desaturate to 70% on 4 L of oxygen. She will get panicky and anxiety with getting up out of bed and transitioning to a wheelchair. We are using Ativan and morphine to control some of her symptoms. Her goal is to get enough strength to eventually return to home so that her son and [id number] can take care of her. Insulin Orders - SNF Basal | Correction | Custom Orders: Diagnosis: Diabetes Initiate hypo and hyperglycemia protocols for BG <70 and BG >375. May check BG PRN for signs/symptoms of dysglycemia. Frequency of BG checks: [AC/Meal/HS] Basal Insulin: [] Lantus 100 units / ml inject subq as follows: [] [] Other: [] Correction Insulin: - Select the type of insulin below [Choose:Humalog]100 units /ml insulin inject subq per orders indicate below [] LOW DOSE [] MODERATE DOSE [X] MODERATE/HIGH DOSE [] HIGH DOSE GB UNITS GB UNITS GB UNITS GB UNITS 61-140 0 UNITS 61-140 0 UNITS 61-140 0 UNITS 61-140 0 UNITS 141-175 1 UNITS 141-175 1 UNITS 141-175 2 UNITS 141-175 3 UNITS 176-225 2 UNITS 176-225 3 UNITS 176-225 4 UNITS 176-225 5 UNITS 226-275 3 UNITS 226-275 5 UNITS 226-275 6 UNITS 226-275 7 UNITS 276-325 4 UNITS 276-325 7 UNITS 276-325 8 UNITS 276-325 9 UNITS 326-375 5 UNITS 326-375 9 UNITS 326-375 10 UNITS 326-375 11 UNITS >375 CONTACT MD >375 CONTACT MD >375 CONTACT MD >375 CONTACT MD Custom Dosing: [Choose: Novolog/Humalog] 100 units/ml Insulin inject subq as follows: GB Units 61-140 [] Units 141-175 [] Units 176-225 [] Units 226-275 [] Units 276-325 []Units 326-375 [] Units >375 Contact MD"
[2018-12-12 17:50] VITALS: BP 154/65
== END 2018-12-12 17:10 | DRG 871 ==
LOC: EDBD → EDUNIT# → ED 20:33 → ICU 22:32
PROVIDERS: ADMIT Internal Medicine; ATTEND Specialist
DX: A41.9 Sepsis, unspecified organism (principal); R41.82 Altered mental status, unspecified; J18.1 Lobar pneumonia, unspecified organism; J96.02 Acute respiratory failure with hypercapnia; J96.01 Acute respiratory failure with hypoxia; G93.40 Encephalopathy, unspecified; J44.1 Chronic obstructive pulmonary disease with (acute) exacerbation; Y95 Nosocomial condition; D38.1 Neoplasm of uncertain behavior of trachea, bronchus and lung; J84.10 Pulmonary fibrosis, unspecified; I27.20 Pulmonary hypertension, unspecified; I10 Essential (primary) hypertension; R51 Headache; K21.9 Gastro-esophageal reflux disease without esophagitis; R35.0 Frequency of micturition; J32.9 Chronic sinusitis, unspecified; F32.9 Major depressive disorder, single episode, unspecified; F41.9 Anxiety disorder, unspecified; M19.90 Unspecified osteoarthritis, unspecified site; Z90.49 Acquired absence of other specified parts of digestive tract; G89.29 Other chronic pain; E78.5 Hyperlipidemia, unspecified; E66.9 Obesity, unspecified; Z68.34 Body mass index [BMI] 34.0-34.9, adult; Z99.81 Dependence on supplemental oxygen
CPT/HCPCS: 36415; 36600; 71045; 80048; 80053; 82040; 82550; 82553; 82803; 83605; 83690; 83735; 83880; 84100; 84484; 85025; 85379; 85610; 87040; 87150; 87275; 87276; 93005; 94640; 94660; 96365; 96368; 96375; 99284; 99291

== ENCOUNTER 2018-12-12 17:50 | Outpatient (CLI) | payer MEDICARE, MEDICAID | END 2018-12-12 17:51 | disposition home or self-care (01) | LOC: EMS 17:50 | PROVIDERS: ATTEND Surgery | DX: R06.00 Dyspnea, unspecified (principal); J44.9 Chronic obstructive pulmonary disease, unspecified | CPT/HCPCS: A0425; A0428 ==

== ENCOUNTER 2018-12-13 10:45 | Outpatient (CLI) | payer MEDICARE, MEDICAID ==
--- NOTE | 2018-12-13 15:39 | CONSULTATION NOTE ---
Palliative Care Follow Up - Referral Referring Provider: Kirti LANE Time of Visit: [id number] Referral setting: Senior Living Facility Referral Reason: End Stage COPD/RUL Lung Nodule/Pneumonia - Information Sources Records reviewed: Previous records reviewed History/Review of Systems obtained from: Patient, Caregiver (clinical staff) Exam limitations: Clinical condition (patient with STM issues;) - History of Present Illness Update Brief HPI Update: This is a 68-year-old woman with severe end-stage COPD, pulmonary fibrosis, pulmonary hypertension, known right upper lobe spiculated lung nodule being followed by oncology, she most recently discharged from [facility] 12/12/18 for acute on chronic respiratory failure with hypoxemia and hypercapnia. Patient does not recall precipitating events, but was having increased confusion, and desating into the 60s. Patient had a recent stay 11/19/18 for the same in ICU for acute respiratory failure/COPD exacerbation with hypoxia and hypercapnia and community-acquired pneumonia, and multiple hospitalizations almost monthly previous to this for COPD exacerbations/pneumonia/bronchitis. Patient has continued to decline both functionally, and cognitively with increased memory loss, her home situation has become more tenuous related to complex family dynamics, and now requires 24/7 care and oversight and skilled care for management of her deteriorating condition and is admitted to [facility]. She is severely limited by her dyspn ea, deconditioning, and poor activity tolerance. Patient presents in the hospital bed, dyspneic with any kind of conversation, though denies respiratory distress. Her breath sounds are diminished th roughout, with scattered expiratory wheezes. She does have her trilogy at the bedside, which she has a mouthpiece she uses intermittently. She is quite introverted and anxious, and often a passive participant in her care. Her stated goals are to "get her body stronger", return home to her apartment, and hopes to improve her underlying breathing status. Patient does have the insight though, that she is steadily going downhill, goals remain consistent for ongoing active and aggressive intervention, and restates she wants to be a FULL CODE. Social History - Living Situation Living arrangement: At home Living Situation: With family Support System: There has been some concern regarding her home situation, her daughter Ivette has been living with her, she has a family friend VITALY who was assisting with medication management has turned him paperwork to apply his LAURA as caregiver. There is been concern about diversion in the home, and APS referral has been made as well, regarding caregiving and firing of caregivers from agencies. Given the complexity of all this, Cait of patient's [employer] telephonic nurse case manager reports there is not a caregiving agency that will provide support in the home at this point in time until daughter out of home per my understanding. ANAHI Goodson, has been trying to advocate for patient regarding care plan, and patient's son is soon to be discharged from long term, there had been some conversation about him participating as the caregiver in home. At this point, patient is unaware of any of this, denies there are problems or concerns of drug abuse/misuse in the home, but does understand can't be home without caregiving support. Medications/Allergies - Medications Home Medications: Ambulatory Orders Medication Instructions Recorded Confirmed Albuterol Sulfate [Proair Hfa 1 puffs INH Q6H PRN 08/31/16 12/13/18 Inhaler] Polyethylene Glycol 3350 [Miralax] 17 g PO DAILY 10/19/18 12/13/18 Albuterol 2.5 mg INH Q4H PRN 11/19/18 12/13/18 Atorvastatin Calcium 20 mg PO QPM 12/10/18 12/13/18 Budesonide [Pulmicort] 0.5 mg INH RTBID neb 12/12/18 12/13/18 Ipratropium/Albuterol [Duoneb] 3 ml INH Q4HR neb 12/12/18 12/13/18 Levofloxacin [Levaquin] 750 mg PO DAILY #5 tablet MDD 12/12/18 12/13/18 until 12/16 Methylprednisolone [Medrol] 4 mg PO UD #1 tab.ds.pk 12/12/18 12/13/18 Morphine Sulfate [Morphine Sulf 5 mg PO Q2H PRN #30 solution 12/12/18 12/13/18 Oral (Roxanol)] Nystatin Cream [Mycostatin Cream] 1 applic TOP BID tube 12/12/18 12/13/18 Potassium Chloride [Micro-K] 40 meq PO DAILYWM capsule 12/12/18 12/13/18 Sertraline [Zoloft] 50 mg PO DAILY #0 tablet 12/12/18 12/13/18 dilTIAZem HCl [Diltiazem 24Hr ER] 120 mg PO DAILY #0 12/12/18 12/13/18 House Bowel Program 1 tab PO DAILY PRN 12/13/18 Insulin Lispro [Humalog Kwikpen 1 unit SQ TID PRN MDD sliding scale 12/13/18 12/13/18 U-100] Morphine Sulfate [Morphine Sulf 5 mg PO TID 12/13/18 12/13/18 Oral (Roxanol)] - Allergies Allergies/Adverse Reactions: Allergies Allergy/AdvReac Type Severity Reaction Status Date / Time No Known Drug Allergies Allergy Verified 12/09/18 20:58 Review of Systems - Constitutional Constitutional: reports: Fatigue. denies: Fever, Chills - Eyes Eyes: reports: Vision loss - Ears, Nose & Throat Ears, Nose & Throat: reports: Dry mouth - Cardiovascular Cardiovascular: reports: Edema, Exertional dyspnea, Decr. exercise tolerance, Orthopnea - Respiratory Respiratory: reports: Cough, Sputum production (reports brown phelgm), Wheezing, Orthopnea, SOB at rest, SOB with exertion - Gastrointestinal Gastrointestinal: reports: Constipation, Good appetite. denies: Nausea - Musculoskeletal Musculoskeletal: reports: Muscle weakness, Other (mostly bedbound related to dyspnea;) - Integumentary Integumentary: reports: Dryness - Neurological Neurological: reports: General weakness, Memory problems - Psychiatric Psychiatric: reports: Anxiety - Endocrine Endocrine: reports: Other (hyperglycemia on s/s related to steroids) - Hematologic/Lymphatic Hematologic/Lymphatic: reports: Anemia, Recurrent infections - All Other Systems All Other Systems: reports: Reviewed and negative Physical Exam - Vital Signs Temperature: 98.1 C Pulse Rate: 84 Respiratory Rate: 22 O2 Saturation: 96 (4 liters at rest) Blood Pressure: 182/72 - Physical Exam General Appearance: positive: Mild distress, Anxious Eyes Bilateral: positive: Normal inspection ENT: positive: Dry mucous membranes Neck: positive: No JVD, Trachea midline Cardiovascular: positive: Regular rate & rhythm Respiratory: positive: Diminished throughout, Wheezes (expiratory/scatttered) Abdomen: positive: Soft, Nml bowel sounds, Obese Skin: positive: Dryness Extremities: positive: Pedal edema (trace in ankles) Neurologic/Psychiatric: positive: Disoriented to time, Weakness, Depressed mood/affect, Flat affect Palliative Care - POLST Patient has POLST: No POLST Status: Full Code Pain: No pain Tiredness/Fatigue: Severe (7-10) Drowsiness/Sedation: Moderate (4-6) Nausea: None Depression: Moderate (4-6) Anxiety: Severe (7-10) Dyspnea: Severe (7-10) Anorexia: Mild (1-3) Sleep: Variable sleep pattern Constipation: Yes, Opoid induced, Unmanaged Feelings of wellbeing/Perceived Quality of Life: Fair, Acceptable, Worsening Performance Status: Patient lives in a little apartment, is quite sedentary. Reports she only ambulates a few steps at baseline. During hospitalization she was mostly bedbound, with transfer to the commode. Patient's goal is to be ambulating a few steps, and be able to participate in some of her ADLs. She is able to self feed, bathing remains challenging and has mostly been bed baths. - Palliative Care Discussion: When asked patient's understanding of her illness, she does present with the i nformation she understands that she has been going downhill, she perceives this is been a steady decline, but remains hopeful to meet her goal of returning home. She understands she is needs 24/7 care, she reports this is been easier since her daughter was living with her. Given she has transition settings, I asked her again about what her wishes were, at this point in time she still is the default to a full code. When asked what would change this for her, she said it would be if she didn't know who or where she was, and wasn't going to get better. She remains reticent to explore many of these conversations, but continue to reiterate my concerns about her declining status and wanting her to be as comfortable as possible.Her stated goals at this point in time are to "getting her body stronger", and going home to her apartment that she realizes she needs to improve for this to happen. Results - Lab Results Lab results reviewed: Yes Impression and Recommendations - Palliative Care Impression: This is a 68-year-old woman with end-stage COPD, pulmonary fibrosis, pulmonary hypertension, most likely malignant process of lung cancer, with ongoing frequent visits to ED/hospital for progressive decline of her COPD, and recurrent respiratory infections. She has recently transition to [facility] after acute hospitalization for acute on chronic respiratory failure with hypoxemia and hypercapnia, end-stage COPD, and right basilar pneumonia. Patient presents with high symptom burden of dyspnea, anxiety, constipation, fatigue, and deconditioning. Palliative care to continue to provide support in this complex patient, following her through transitions of care Recommendations/Counseling Done: 1. Dyspnea, multifactorial in origin. Patient at home does use morphine sulfate 20 mg/ml, 4-5 times a day for relief of significant distress. Patient very passive, discussed strategy and current setting, as patient most likely not going to ask for it until acutely needed. Counseling with patient, agreed for 5 mg scheduled 3 times daily, with ability to continue every 2 hours as needed for escalating distress. Patient also brought and trilogy, at bedside has been effective previously. Instructed to continue to use on a frequent basis, would recommend staff remind her to use. Patient currently finishing treatment for her pneumonia, continues with productive cough and nebulizer treatments. 2. Anxiety. Patient on sertraline 50 mg daily. Would recommend holding off Lorazepam dosing at this point, had used in hospital with acute symptoms, (recent RX from PCP but may have attributed to confusion), but patient with STM issues at baseline, and anxiety often attributed to breathlessness. 3. Hypertension. Patient's blood pressure on exam for ct was 182/72. Patient's current valsartan and amlodipine have not been restarted. Requested RN send follow up blood pressures for later in day, or will defer to Dr. Staton to restart tomorrow if remain elevated. 4. Constipation. Patient reports constipation and discomfort. We will go ahead and have RN give 2 senna now from bowel program. Patient currently scheduled with [facility] daily, may need to add senna 2 tabs daily scheduled. Continue to evaluate. 5. Advanced care planning. Patient reiterated wishes for full code, has had multiple conversations with multiple providers regarding goals of care. Patient able to verbalize though recognition she is declining, continues with poor insight into the severity of her disease and sequela relating to this, and now presents with complex social situation for long-term planning, and to meet patient's goal to return to home setting Time Spent: 45 minutes with greater than 50% of this done in counseling regarding goals of care, coordination of care with clinical staff, and strategies for managing symptoms.
== END 2018-12-13 10:46 | disposition home or self-care (01) ==
LOC: PC 10:45
PROVIDERS: ATTEND Nurse Practitioner Adult Health
DX: Z51.5 Encounter for palliative care (principal); J44.9 Chronic obstructive pulmonary disease, unspecified; Z87.01 Personal history of pneumonia (recurrent); R91.1 Solitary pulmonary nodule; J84.10 Pulmonary fibrosis, unspecified; I27.20 Pulmonary hypertension, unspecified; R53.83 Other fatigue; H54.7 Unspecified visual loss; F41.9 Anxiety disorder, unspecified; I10 Essential (primary) hypertension; K59.00 Constipation, unspecified; Z79.51 Long term (current) use of inhaled steroids; Z79.891 Long term (current) use of opiate analgesic; Z79.4 Long term (current) use of insulin
CPT/HCPCS: 99310

== ENCOUNTER 2018-12-21 08:00 | Outpatient (CLI) | payer MEDICARE, MEDICAID ==
[2018-12-21 14:20] LABS: CALCIUM 8.1 mg/dL (8.5-10.3); CREATININE 0.3 mg/dL (0.4-1.0)
== END 2018-12-21 23:59 ==
LOC: LAB.R 08:00
DX: J96.02 Acute respiratory failure with hypercapnia (principal); I10 Essential (primary) hypertension
CPT/HCPCS: 80048

== ENCOUNTER 2018-12-26 08:12 | Inpatient (IN) | payer MEDICARE, MEDICAID ==
[2018-12-26] MEDS ORDERED: MAGNESIUM SULFATE 2 GRAM 2 GM/50 ML BAG IV ONE (08:19)
--- NOTE | 2018-12-26 08:31 | ED Physician Documentation ---
PD HPI DYSPNEA - Stated complaint Stated Complaint: COPD EXAC - Chief complaint Chief Complaint: Resp - History obtained from History obtained from: Patient, EMS - History of Present Illness Timing - onset: Today Timing - onset during: Sleep Timing - duration: Hours Timing - details: Gradual onset, Still present Inciting event(s): URI Improved by: O2, BiPAP / CPAP, Inhaler/neb, Steroids, Rest, Sitting up Worsened by: Exertion, Coughing Associated symptoms: Cough, Wheezing Similar symptoms before: Diagnosis (COPD) Recently seen: Admitted - Additional information Additional information: 68-year-old female with 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 after an admission for respiratory failure. She was maintained on BiPAP diagnosed with pneumonia placed on Levaquin treated with steroids in the hospital and her disposition was to [facility] rather than to her home. She has been evaluated by palliative care multiple times and despite her advancing disease she has continued to request full code status. She was previously living in her home with care giving by family and this is no longer possible with the requirements of her care. Review of Systems Constitutional: reports: Sweats Eyes: denies: Decreased vision Ears: denies: Ear pain Nose: denies: Rhinorrhea / runny nose, Congestion Throat: denies: Sore throat Cardiac: denies: Chest pain / pressure, Palpitations Respiratory: reports: Dyspnea, Cough, Wheezing GI: denies: Abdominal Pain, Nausea, Vomiting : denies: Dysuria, Frequency Skin: denies: Rash Musculoskeletal: denies: Neck pain, Back pain, Extremity pain Neurologic: reports: Generalized weakness. 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 HEENT: Chronic sinusitis Psych: Depression, Anxiety Musculoskeletal: Osteoarthritis, Fatigue Derm: None - Past Surgical History Past Surgical History: No General: Cholecystectomy HEENT: Tonsil/Adenoidectomy - Present Medications Home Medications: Ambulatory Orders Medication Instructions Recorded Confirmed Albuterol Sulfate [Proair Hfa 1 puffs INH Q6H PRN 08/31/16 12/13/18 Inhaler] Polyethylene Glycol 3350 [Miralax] 17 g PO DAILY 10/19/18 12/13/18 Albuterol 2.5 mg INH Q4H PRN 11/19/18 12/13/18 Atorvastatin Calcium 20 mg PO QPM 12/10/18 12/13/18 Budesonide [Pulmicort] 0.5 mg INH RTBID neb 12/12/18 12/13/18 Ipratropium/Albuterol [Duoneb] 3 ml INH Q4HR neb 12/12/18 12/13/18 Morphine Sulfate [Morphine Sulf 5 mg PO Q2H PRN #30 solution 12/12/18 12/13/18 Oral (Roxanol)] Potassium Chloride [Micro-K] 40 meq PO DAILYWM capsule 12/12/18 12/13/18 Sertraline [Zoloft] 50 mg PO DAILY #0 tablet 12/12/18 12/13/18 dilTIAZem HCl [Diltiazem 24Hr ER] 120 mg PO DAILY #0 12/12/18 12/13/18 House Bowel Program 1 tab PO DAILY PRN 12/13/18 Insulin Lispro [Humalog Kwikpen 1 unit SQ TID PRN MDD sliding scale 12/13/18 12/13/18 U-100] Morphine Sulfate [Morphine Sulf 5 mg PO TID 12/13/18 12/13/18 Oral (Roxanol)] - Allergies Allergies/Adverse Reactions: Allergies Allergy/AdvReac Type Severity Reaction Status Date / Time No Known Drug Allergies Allergy Verified 12/26/18 08:19 - Social History Does the pt smoke?: No Smoking Status: Former smoker Does the pt drink ETOH?: Yes Does the pt have substance abuse?: No - Immunizations Immunizations are current?: No Immunizations: TDAP >10years/unknown - POLST Patient has POLST: No POLST Status: Full Code PD ED PE NORMAL - Vitals Vital signs reviewed: Yes (tachy, tachypneic and hypertensive with hypoxia) - General General: Well developed/nourished, Other (blank stare until after BIPAP is instituted and then she is able to speak in 2 word sentences. ) - HEENT HEENT: Atraumatic, PERRL, EOMI - Neck Neck: Supple, no meningeal sign, No bony TTP - Cardiac Cardiac: No murmur, Other (regular and tachy) - Respiratory Respiratory: Other (markedly diminished breath sounds with prolonged expritory phase. 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 ) Results - Vitals Vitals: Vital Signs - 24 hr 12/26/18 12/26/18 12/26/18 08:13 08:18 08:24 Temperature 36.6 C Heart Rate 137 H 102 H 132 H Respiratory 28 H 16 25 H Rate Blood Pressure 118/84 H 118/84 H O2 Saturation 56 L 90 L 12/26/18 12/26/18 12/26/18 08:27 08:47 09:28 Temperature Heart Rate 125 H 115 H 99 Respiratory 15 13 Rate Blood Pressure 131/65 H 131/59 H O2 Saturation 90 L 92 12/26/18 12/26/18 12/26/18 09:45 10:35 11:17 Temperature 36.8 C Heart Rate 94 99 88 Respiratory 17 14 18 Rate Blood Pressure 123/63 171/52 H 113/53 L O2 Saturation 94 93 94 12/26/18 12/26/18 11:55 12:00 Temperature Heart Rate 81 87 Respiratory 12 12 Rate Blood Pressure 106/55 L 130/59 L O2 Saturation 94 93 Oxygen O2 Source BIPAP - EKG (time done) 0828 Rate: Rate (enter#) (130) Rhythm: Sinus tachycardia Compare to prior EKG: Changed from prior EKG (SPT 12-09-18 rate has increased) Computer interpretation: Agree with computer - Labs Labs: Laboratory Tests 12/26/18 12/26/18 12/26/18 08:18 08:19 08:19 WBC RBC Hgb Hct MCV MCH MCHC RDW Plt Count MPV Neut # (Auto) Lymph # (Auto) [place] # (Auto) Eos # (Auto) Baso # (Auto) Absolute Nucleated RBC Nucleated RBC % Manual Slide Review RBC Morph Micro Appear Bld Gas Analysis Time Sample Site ABG pH ABG pCO2 ABG pO2 ABG HCO3 ABG Total CO2 ABG O2 Saturation ABG Base Excess Heriberto Test O2 Delivery Device FiO2 EPAP IPAP Sodium 130 L Potassium 5.8 H Chloride 88 L Carbon Dioxide 27 Anion Gap 15.0 H BUN 15 Creatinine 0.6 Estimated GFR (MDRD) 99 Glucose 180 H Lactic Acid Calcium 9.7 Magnesium 2.0 Total Bilirubin 0.9 AST 23 ALT 15 Alkaline Phosphatase 80 Troponin I < 0.04 B-Natriuretic Peptide 57 Total Protein 6.9 Albumin 3.0 L Globulin 3.9 Albumin/Globulin Ratio 0.8 L Lipase 25 Urine Color Urine Clarity Urine pH Ur Specific [place] Urine Protein Urine Glucose (UA) Urine Ketones Urine Occult Blood Urine Nitrite Urine Bilirubin Urine Urobilinogen Ur Leukocyte Esterase Urine RBC Urine WBC Ur Squamous Epith Cells Urine Bacteria Urine Mucus Ur Microscopic Review Urine Culture Comments 12/26/18 12/26/18 12/26/18 08:30 08:30 09:06 WBC 16.5 H RBC 3.80 L Hgb 10.8 L Hct 33.5 L MCV 88.0 MCH 28.3 MCHC 32.2 RDW 16.7 H Plt Count 336 MPV 7.1 L Neut # (Auto) 10.2 H Lymph # (Auto) 4.5 H Gall[place] # (Auto) 1.4 H Eos # (Auto) 0.2 Baso # (Auto) 0.1 Absolute Nucleated RBC 0.01 Nucleated RBC % 0.0 Manual Slide Review Indicated RBC Morph Micro Appear 1+ POLYCHROMASIA Bld Gas Analysis Time 0906 Sample Site RIGHT RADIAL ABG pH 7.31 L ABG pCO2 59 H ABG pO2 69 L ABG HCO3 29.0 H ABG Total CO2 30.8 H ABG O2 Saturation 91 L ABG Base Excess 1.8 Heriberto Test POSITIVE O2 Delivery Device BiPAP FiO2 40.00 EPAP 5 IPAP 12 Sodium Potassium Chloride Carbon Dioxide Anion Gap BUN Creatinine Estimated GFR (MDRD) Glucose Lactic Acid 4.0 H* Calcium Magnesium Total Bilirubin AST ALT Alkaline Phosphatase Troponin I B-Natriuretic Peptide Total Protein Albumin Globulin Albumin/Globulin Ratio Lipase Urine Color Urine Clarity Urine pH Ur Specific [place] Urine Protein Urine Glucose (UA) Urine Ketones Urine Occult Blood Urine Nitrite Urine Bilirubin Urine Urobilinogen Ur Leukocyte Esterase Urine RBC Urine WBC Ur Squamous Epith Cells Urine Bacteria Urine Mucus Ur Microscopic Review Urine Culture Comments 12/26/18 10:25 WBC RBC Hgb Hct MCV MCH MCHC RDW Plt Count MPV Neut # (Auto) Lymph # (Auto) [place] # (Auto) Eos # (Auto) Baso # (Auto) Absolute Nucleated RBC Nucleated RBC % Manual Slide Review RBC Morph Micro Appear Bld Gas Analysis Time Sample Site ABG pH ABG pCO2 ABG pO2 ABG HCO3 ABG Total CO2 ABG O2 Saturation ABG Base Excess Heriberto Test O2 Delivery Device FiO2 EPAP IPAP Sodium Potassium Chloride Carbon Dioxide Anion Gap BUN Creatinine Estimated GFR (MDRD) Glucose Lactic Acid Calcium Magnesium Total Bilirubin AST ALT Alkaline Phosphatase Troponin I B-Natriuretic Peptide Total Protein Albumin Globulin Albumin/Globulin Ratio Lipase Urine Color DARK YELLOW Urine Clarity CLEAR Urine pH 6.0 Ur Specific [place] 1.025 Urine Protein TRACE Urine Glucose (UA) NEGATIVE Urine Ketones NEGATIVE Urine Occult Blood SMALL H Urine Nitrite NEGATIVE Urine Bilirubin NEGATIVE Urine Urobilinogen 0.2 (NORMAL) Ur Leukocyte Esterase NEGATIVE Urine RBC 6-10 H Urine WBC 0-3 Ur Squamous Epith Cells NONE SEEN Urine Bacteria Few Urine Mucus Moderate Strands Ur Microscopic Review INDICATED Urine Culture Comments NOT INDICATED - Rads (name of study) one view chest Radiology: Prelim report reviewed (Impression: There is an 11 mm density project ing through the right third intercostal space laterally this is incompletely assessed on this examination consider PA and lateral chest radiograph for further evaluation of this persist a CT may be of benefit. 2. Increased interstitial markings in the lung bases is nonspecific but can be seen in the setting of reactive airways disease, bronchitis and viral infection), EMP read indepedently, See rad report Procedures - IVC sono (time) 0840 Bedside IVC sono: IVC measures (cm) (1.28), IVC collapsed c insp (cm) (com plete), Dehydration (est 1 liter deficit) PD MEDICAL DECISION MAKING - ED course Complexity details: reviewed old records, reviewed results, re-evaluated patient, considered differential, d/w patient ED course: 68-year-old female with oxygen and steroid-dependent COPD that is end-stage has had a recent hospitalization for pneumonia and exacerbation of COPD she [facility] and today she has had a decompensation in her breathing. She arrives to the emergency department markedly dyspneic with a blunted affect and blunted communication with marked hypoxia. She is begun on BiPAP with good result with a raise in her oxygen saturation to 92% she is administered magnesium sulfate intravenously Solu-Medrol intravenously and a DuoNeb treatment. She has been given 3 doses of morphine overnight. She has improvement in her air movement and an abg done after treatment is acceptable. I have discussed the case with Dr. Glass and we will treat for healthcare aquired pneumonia with cefepime and vanco. Departure - Departure Disposition: 66 [facility] DC/Xfer Clinical Impression: Chronic obstructive pulmonary disease with acute exacerbation
[2018-12-26] MEDS ORDERED: methylPREDNISolone SUCCINATE 125 MG/2 ML VIAL IVP STA (08:39)
[2018-12-26 08:41] LABS: BASOPHILS # (AUTO) 0.1 10^3/uL (0.0-0.1); BASOPHILS % (AUTO) 0.9 %; EOSINOPHILS # (AUTO) 0.2 10^3/uL (0.0-0.7); EOSINOPHILS % (AUTO) 1.2 %; HGB - HEMOGLOBIN 10.8 g/dL (12.0-16.0); LYMPHOCYTES # (AUTO) 4.5 10^3/uL (1.5-3.5); LYMPHOCYTES % (AUTO) 27.3 %; MEAN CORPUSCULAR HEMOGLOBIN 28.3 pg (27.0-31.0); MEAN CORPUSCULAR HGB CONC 32.2 g/dL (32.0-36.0); MEAN PLATELET VOLUME 7.1 fL (7.9-10.8); MONOCYTES # (AUTO) 1.4 10^3/uL (0.0-1.0); MONOCYTES % (AUTO) 8.6 %; NEUTROPHILS # (AUTO) 10.2 10^3/uL (1.5-6.6); PLT - PLATELET COUNT 336 10^3/uL (130-450); RED CELL DISTRIBUTION WIDTH 16.7 % (12.0-15.0); WHITE BLOOD COUNT 16.5 x10^3/uL (4.8-10.8)
[2018-12-26 08:51] LABS: ALBUMIN/GLOBULIN RATIO 0.8 (1.0-2.2); BILIRUBIN,TOTAL 0.9 mg/dL (0.2-1.0); CALCIUM 9.7 mg/dL (8.5-10.3); CREATININE 0.6 mg/dL (0.4-1.0); TOTAL PROTEIN 6.9 g/dL (6.7-8.2)
[2018-12-26] MEDS ORDERED: ALBUTEROL NEB 2.5 MG/3 ML INH STA (08:51)
[2018-12-26] MEDS ORDERED: SODIUM CHLORIDE 0.9% 1,000 ML IV ONE (09:08)
--- NOTE | 2018-12-26 09:22 | XRAY Report ---
Reason: chest pain Procedure Date: 12/26/2018 Accession Number: [id number] / [id number] Procedure: XR - Chest 1 View X-Ray CPT Code: 86806 FULL RESULT: EXAM: CHEST RADIOGRAPHY EXAM DATE: 12/26/2018 08:56 AM. CLINICAL HISTORY: Chest pain. COMPARISON: None. TECHNIQUE: 1 view. FINDINGS: Lungs/Pleura: There is an 11 mm density projecting through the right third intercostal space. Increased interstitial markings in the lung bases. Mediastinum: Within exam limitations, the cardiomediastinal contour is normal. Other: None. IMPRESSION: 1. There is an 11 mm density projecting through the right third intercostal space laterally. This is incompletely assessed on this examination. Consider PA and lateral chest radiograph for further evaluation and if this persists, a chest CT may be of benefit. 2. Increased interstitial markings in the lung bases is nonspecific but can be seen in the setting of reactive airways disease, bronchitis and viral infection. RADIA
[2018-12-26 09:23] LABS: ABG BASE EXCESS 1.8 mmol/L (-2.0-3.0); ABG OXYGEN SATURATION 91 % (94-98); ABG PCO2 59 mmHg (34-45); ABG PH 7.31 (7.35-7.45); ABG PO2 69 mmHg (80-100); ABG TCO2 30.8 MMOL/L (21.0-29.0); ALLEN TEST POSITIVE
[2018-12-26 10:47] LABS: BILIRUBIN,URINE NEGATIVE (NEGATIVE); GLUCOSE, URINE (UA) NEGATIVE (NEGATIVE); KETONES,URINE (UA) NEGATIVE (NEGATIVE); LEUKOCYTE ESTERASE, URINE NEGATIVE (NEGATIVE); NITRITE,URINE NEGATIVE (NEGATIVE); OCCULT BLOOD,URINE SMALL (NEGATIVE); PROTEIN,URINE TRACE mg/dL (NEGATIVE); UROBILINOGEN,URINE 0.2 (NORMAL) E.U./dL (NORMAL)
[2018-12-26 10:50] LABS: CLARITY,URINE CLEAR (CLEAR)
[2018-12-26 11:01] LABS: BACTERIA,URINE Few /HPF (None Seen); SQUAMOUS EPITHELIAL CELL,UR NONE SEEN (<= Few)
[2018-12-26 11:02] LABS: MUCUS,URINE Moderate Strands
[2018-12-26] MEDS ORDERED: VANCOMYCIN INJ 1 GM in SODIUM CHLORIDE 0.9% 500 ML IV STA (12:21)
[2018-12-26] MEDS ORDERED: CEFEPIME 1 GM in SODIUM CHLORIDE 0.9% MINIBAG 100 ML IV STA (12:21)
[2018-12-26] MEDS ORDERED: ONDANSETRON ODT 4 MG TABLET TL PRN (12:36)
[2018-12-26] MEDS ORDERED: ONDANSETRON 4 MG/2 ML VIAL IVP PRN (12:36)
--- NOTE | 2018-12-26 13:00 | HISTORY & PHYSICAL EXAMINATION ---
Chief Complaint - Chief Complaint Chief Complaint: Worsening SOB with associated subjective fevers and chills History of Present Illness - Admitted From Admitted From:: [facility] - History Obtained From Records Reviewed: Yes History obtained from: Patient and Dr. Martinez Exam Limitations: Due to bipap - History of Present Illness HPI Comment/Other: This is a 68-year-old woman with severe end-stage COPD, pu lmonary fibrosis, pulmonary hypertension, known right upper lobe spiculated lung nodule being followed by oncology, opiod dependence with morphine; she most recently discharged from [facility] 12/15/18 for acute on chronic respiratory failure with hypoxemia and hypercapnia. Patient with multiple admissions in the past for COPD exacerbations. Patient does not recall precipitating events, but was having increased confusion, subjective fevers, chills, and increase sputum production and desating into the 56% pox on NC. Patient is now oxygen and steroid dependent. She was maintained on BiPAP diagnosed with pneumonia placed on Levaquin treated with steroids in the hospital and her disposition was to [facility] rather than to her home. She has been evaluated by palliative care multiple times and despite her advancing disease she has continued to request full code status. Palliative last note was on 12/13/18 for which she is resistant to hospice and or being a DNR attributable to family dynamics and complexity. She was previously living in her home with care giving by family and this is no longer possible with the requirements of her care. Patient has continued to decline both functionally, and cognitively with increased memory loss, her home situation has become more tenuous related to complex family dynamics, and now requires 24/7 care and oversight and skilled care for ma nagement of her deteriorating condition and is admitted her as [facility] nor family unable to meet patient's complex medical needs. She is severely limited by her dyspnea, deconditioning, and poor activity tolerance. CXR shows bilateral infiltrates indicative of possible early HCAP, 11 mm RUL simulated mass still present wbc 16.5, Na 130, preserved renal function, hyperglycemic, lactic acidosis, anemia NC with no precipitous drops or bleeds, trop x 1 neg, ecg shows ST at 137 bpm, ECHO on 09/17/18 shows EF 60-65%. Patient placed on bipap in ED, given IV steroids, fluids, duonebs, and started on IV cefepime and vancomycin. History - Past Medical History Cardiovascular: reports: Hypertension Respiratory: reports: COPD, Pneumonia, Other Neuro: reports: Headaches Endocrine/Autoimmune: reports: Type 2 diabetes (IDDM type 2) GI: reports: GERD, Cholelithiasis IGNITER CAPPER: reports: Other : reports: Frequency HEENT: reports: Chronic sinusitis Psych: reports: Depression, Anxiety Musculoskeletal: reports: Osteoarthritis, Fatigue Derm: reports: None MRSA Hx?: No - Past Surgical History General: reports: Cholecystectomy HEENT: reports: Tonsil/Adenoidectomy - Family & Social History Family History: Mother: , COPD/Emphysema, Father: , COPD/ Emphysema Family History Comment/Other: Both of her mother and father in the late 60s early 70s. Mom smoked up until her and she of COPD complications. Dad also of COPD. She has 4 brothers and one sister. All of them live in [place] except except one who lives in the [facility]. She says that no one has diabetes, hypertension, heart disease, or emphysema. Of 3 children her youngest daughter with killed or under suspicious circumstances. Her other 2 children are healthy. Social History Notes: Patient is a woman who lives alone in [place]. She was born in [place] and is retired. She has two children. The patient has lived on [facility] since 1983. Prior to that she lived in the [facility]. The patient has a daughter and son both of whom live on [facility]. The patient quit smoking Around 2007 but smoked 1 pack a day for over 50 years Starting at the age of 17. The patient does drink 1 beer a night. In the past she has done marijuana. When she was to her first he was a cocaine addict and she tried cocaine a few times but she never used it on a regular basis. She has not used it since her 20s.She has a Jonathan worker that comes by every day except Monday and Monday. But the jonathan worker is only a few hours a day. Because of excessive breathlessness, end-stage lung disease, she has become homebound over the last year - Substance History Use: Uses substance without health or social issues: NONE (Quit smoking but previously smoked 1PPD for over 50 years), Alcohol (1 beer a night) - POLST Patient has POLST: No POLST Status: Full Code Meds/Allgy - Home Medications Home Medications: Ambulatory Orders Medication Instructions Recorded Confirmed Albuterol Sulfate [Proair Hfa 1 puffs INH Q6H PRN 08/31/16 12/26/18 Inhaler] Polyethylene Glycol 3350 [Miralax] 17 g PO DAILY 10/19/18 12/26/18 Albuterol 2.5 mg INH Q4H PRN 11/19/18 12/26/18 Atorvastatin Calcium 20 mg PO QPM 12/10/18 12/26/18 Budesonide [Pulmicort] 0.5 mg INH RTBID neb 12/12/18 12/26/18 Ipratropium/Albuterol [Duoneb] 3 ml INH Q4HR neb 12/12/18 12/26/18 Morphine Sulfate [Morphine Sulf 5 mg PO Q2H PRN #30 solution 12/12/18 12/26/18 Oral (Roxanol)] Sertraline [Zoloft] 50 mg PO DAILY #0 tablet 12/12/18 12/26/18 dilTIAZem HCl [Diltiazem 24Hr ER] 120 mg PO DAILY #0 12/12/18 12/26/18 House Bowel Program 1 tab PO DAILY PRN 12/13/18 12/26/18 Insulin Lispro [Humalog Kwikpen 1 - 10 unit SQ ACHS MDD sliding 12/13/18 12/26/18 U-100] scale Morphine Sulfate [Morphine Sulf 5 mg PO TID 12/13/18 12/26/18 Oral (Roxanol)] Potassium Chloride [Klor-Con] 40 meq PO DAILYWM 12/26/18 12/26/18 - Allergies Allergies/Adverse Reactions: Allergies Allergy/AdvReac Type Severity Reaction Status Date / Time No Known Drug Allergies Allergy Verified 12/26/18 08:19 Review of Systems - Constitutional Constitutional: reports: Fatigue, Fever, Chills, Weakness - Respiratory Respiratory: reports: Cough, Sputum production, Wheezing - All Other Systems All Other Systems: reports: Reviewed and negative Prior Level of Functionality: Patient was apparently semi-independent but recently bed bound due to her severe COPD Exam - Vital Signs Vital Signs: Vital Signs x48h Temp Pulse Resp BP Pulse Ox 12/26/18 12:00 87 12 130/59 L 93 12/26/18 11:55 81 12 106/55 L 94 12/26/18 11:17 88 18 113/53 L 94 12/26/18 10:35 99 14 171/52 H 93 12/26/18 09:45 36.8 C 94 17 123/63 94 12/26/18 09:28 99 13 131/59 H 92 12/26/18 08:47 115 H 15 131/65 H 90 L 12/26/18 08:27 125 H 12/26/18 08:24 132 H 25 H 118/84 H 90 L 12/26/18 08:18 102 H 16 12/26/18 08:13 36.6 C 137 H 28 H 118/84 H 56 L - Physical Exam General Appearance: positive: Moderate distress Eyes Bilateral: positive: PERRL, EOMI ENT: positive: Pharynx nml, No signs of dehydration Neck: positive: Nml inspection, Thyroid nml, No JVD, Trachea midline, Thyromegaly. negative: Carotid bruit Respiratory: positive: Chest non-tender, Wheezes, Rhonchi Cardiovascular: positive: Regular rate & rhythm, No murmur, No gallop, Tachycardia. negative: JVD present, Systolic murmur, Diastolic murmur, Gallop/S3, Gallop/S4 Peripheral Pulses: positive: 2+ Abdomen: positive: Non-tender, No organomegaly, Nml bowel sounds, No distention Back: positive: Nml inspection Skin: positive: Color nml, No rash, Warm, Dry, Cyanosis (to distal digits) Extremities: positive: Non-tender, Full ROM, Nml appearance, No pedal edema. negative: Calf tenderness, Florecita's sign/cords Neurologic/Psychiatric: positive: Oriented x3, CN's nml (2-12) Conclusion/Plan - Problem List (1) HCAP (healthcare-associated pneumonia) Conclusion/Plan: IV cefepime and vancomycin started empirically since [place] came [place]. Would send for flu, mycoplasma, strept, sputum gram stain and culture, blood cultures, lactic acid elevated however does not appear septic with leukocytosis that appears to be steroid induced. High risk of mucus plugging, atelectasis with associated bronchiectasis and severe PF. Would continue with med mgmt for PF/COPD mgmt. (2) Chronic obstructive pulmonary disease with acute exacerbation Conclusion/Plan: Patient with monthly admits approximately with recurrent COPD exacerbations. Would place on IV steroids, singulair, pulmicort nebs, duonebs, sputum for gram stain and culture, Bipap, pulmonary toileting, acapella with CPT. Daily abg's, labs. Has associated pulmonary fibrosis, with pulm htn, optimize medical mgmt. Has sputum production so will be treated with empiric IV abx for both HCAP and COPD exacerbation. Palliative care consultation to re-eval goals of care, symptom mgmt and possibly address her code status to see if she may be amenable to hospice option due to her high LACE scores and multiple admissions along with worsening disease trajectory w/ her end-stage COPD. (3) Acute on chronic respiratory failure with hypoxia and hypercapnia Conclusion/Plan: Patient currently on Bipap and is comfortable, good 02 saturations, address u nderlying causes which I believe is end-stage COPD with PF and unlikely the spiculated RUL nodule which does not appear to have a "post-obstructive" process. Would initiate theophylline at 100 mg po bid to augment bronchodilatory effects along with current RT neb, inh steroid mgmt. Would also treat empirically with IV abx as delineated for HCAP and COPD exacerbation with sputum production. (4) Anxiety disorder Conclusion/Plan: Would place back on morphine as this would exacerbate if this is discontinued, as she will be on high dose steroids to offset drug-induced side effects. Qualifiers: Anxiety disorder type: other anxiety disorder Qualified Code(s): F41.8 - Other specified anxiety disorders (5) Neoplasm of uncertain behavior of trachea, bronchus and lung Conclusion/Plan: Re-demonstrated 11 mm nodule to RUL. Patient has been seen as outpatient oncology and with known "spiculated" RUL nodule which may be malignant. Unclear if this was biopsied or with serial CT scans indicated. (6) Palliative care status Conclusion/Plan: Goals of care addressed and will remain a full code until she has more in depth conversation with palliative care service. (7) Lactic acidosis Conclusion/Plan: Likely secondary to HCAP/COPD with poor V/Q mismatching as evidenced from ABG poor tissue perfusion. Does not have sepsis picture despite leukocytosis which is steroid induced. Would treat with IV abx, and med mgmt, was given IVF's in ED. (8) Opioid dependence Conclusion/Plan: Patient was on roxanol 5 mg po tid back at [facility] and since she is on bipap would hold this and resume morphine at 1 mg IV q4 prn for her dyspnea to avoid precipitation of opiod withdrawals. Qualifiers: Substance use status: uncomplicated Qualified Code(s): F11.20 - Opioid dependence, uncomplicated (9) Hyponatremia Conclusion/Plan: Appeared somewhat dry with hypochloremia, preserved renal function s/p IVf resucitation in ED. Would monitor and correct other electrolyte disturbances. daily renal panel. (10) Advanced care planning/counseling discussion Conclusion/Plan: Patient with end-stage copd/PF who his steroid and o2 dependent with multiple admissions who p/w acute on chronic hypoxemic/hypercapneic RF. I discussed her severity of illness and in the event of an intubation she likely would not be extubatable and will need a tracheostomy. Patient wanted think about her code status at a later time but remains FULL code despite her poor long-term prognosis related to her condition. I had conveyed to her the trajectory of illness and will re-engage palliative care services to go over her goals of ca re, symptom mgmt and perhaps recreation counselor and educate patient on her illness severity and prognosis as it relates to her anxiety and provider burden which are both evident on these past admissions. - Lab Results Fish Bones: 12/26/18 08:30 12/26/18 08:19 - Diagnostic Imaging Results Diagnostic Imaging Results: positive: Final report reviewed (CXR shows similar spiculated RUL nodule luciano approx 11 mm. Bilateral infiltrates seen.) - EKG Results EKG Interpreted Independently: Yes EKG Comparison: No prior EKG, Other (sinus tachycardia) EKG Findings: ST at [address] depression inferiorly Core Measures - Anticipated LOS I expect patient to be DC'd or transferred within 96 hours.: Yes - Issues Hospital Issues and Management Plan: Palliative care needs to address goals of care to include hospice option for this patient - DVT/VTE - Prophylaxis VTE/DVT Device ordered at admit?: No Not Ordered - Medical Reason: Not indicated VTE/DVT Prophylaxis med ordered at admit?: Yes - Stroke - Rehab Assessment Rehab services assessment to be ordered?: No Not Ordered - Medical Reason: Not indicated - AMI - Statin at Admit Aspirin Prescribed on Admit: No Not Ordered - Medical Reason: Not indicated
[2018-12-26] MEDS: IPRATROPIUM/ALBUTEROL 3 ML NEB INH SCH ×3 (14:15→21:04)
[2018-12-26] MEDS: MORPHINE 2 MG/ML CARPUJECT IVP PRN ×3 (14:34→23:26)
[2018-12-26] MEDS: ENOXAPARIN 40 MG/0.4 ML SYRINGE SUBQ SCH (15:59)
[2018-12-26] MEDS: THEOPHYLLINE ER 300 MG TABLET PO SCH (16:00)
[2018-12-26 16:03] LABS: HB2 TOTAL 10.9 g/dL; HEMOGLOBIN A1C 0.43 g/dL; HEMOGLOBIN A1C % 5.8 % (4.6-6.2)
[2018-12-26] MEDS: SODIUM CHLORIDE FLUSH 0.9% 10 ML SYRINGE IVP SCH ×2 (17:23→23:26)
[2018-12-26] MEDS: INSULIN ASPART 300 UNIT/3 ML PEN SUBQ SCH ×2 (17:23→20:54)
[2018-12-26] MEDS: methylPREDNISolone SUCCINATE 40 MG/ML VIAL IVP SCH ×2 (17:41→23:25)
[2018-12-26] MEDS: MIN OIL/DIMETHICON/COCONUT OIL 92 GM TUBE TOP PRN (19:35)
[2018-12-26] MEDS: SODIUM CHLORIDE FLUSH 0.9% 10 ML SYRINGE IVP PRN (19:35)
[2018-12-26] MEDS: guaiFENesin 600 MG TABLET PO SCH (20:48)
[2018-12-26] MEDS: MONTELUKAST 10 MG TABLET PO SCH (20:48)
[2018-12-26] MEDS: ATORVASTATIN 10 MG TABLET PO SCH (20:48)
[2018-12-26] MEDS ORDERED: FAMOTIDINE 20 MG/50 ML 50 ML IV SCH (21:00)
[2018-12-26] MEDS: BUDESONIDE 0.5 MG/2 ML NEB INH SCH (21:05)
[2018-12-27] MEDS: IPRATROPIUM/ALBUTEROL 3 ML NEB INH SCH ×6 (01:16→21:30)
[2018-12-27] MEDS: SODIUM CHLORIDE FLUSH 0.9% 10 ML SYRINGE IVP PRN ×5 (02:45→18:20)
[2018-12-27] MEDS: MORPHINE 2 MG/ML CARPUJECT IVP PRN ×2 (02:45→06:36)
[2018-12-27] MEDS ORDERED: LORazepam 2 MG/ML VIAL IVP SCH (02:50)
[2018-12-27] MEDS ORDERED: diltiaZEM INJ 5 MG/ML VIAL IVP ONE (02:50)
[2018-12-27] MEDS ORDERED: LORazepam 2 MG/ML VIAL ONE (02:52)
[2018-12-27] MEDS ORDERED: diltiaZEM INJ 5 MG/ML VIAL ONE (02:52)
[2018-12-27] MEDS ORDERED: SODIUM CHLORIDE FLUSH 0.9% 10 ML SYRINGE ONE (02:52)
[2018-12-27 04:57] LABS: HGB - HEMOGLOBIN 8.9 g/dL (12.0-16.0); LYMPHOCYTES # (AUTO) 0.5 10^3/uL (1.5-3.5); LYMPHOCYTES % (AUTO) 8.3 %; MEAN CORPUSCULAR HEMOGLOBIN 28.3 pg (27.0-31.0); MEAN CORPUSCULAR HGB CONC 32.3 g/dL (32.0-36.0); MEAN CORPUSCULAR VOLUME 87.6 fL (81.0-99.0); MEAN PLATELET VOLUME 6.6 fL (7.9-10.8); MONOCYTES # (AUTO) 0.1 10^3/uL (0.0-1.0); MONOCYTES % (AUTO) 1.5 %; NEUTROPHILS # (AUTO) 5.7 10^3/uL (1.5-6.6); NEUTROPHILS % (AUTO) 90.2 %; PLT - PLATELET COUNT 255 10^3/uL (130-450); RED BLOOD COUNT 3.15 10^6/uL (4.20-5.40); RED CELL DISTRIBUTION WIDTH 16.3 % (12.0-15.0); WHITE BLOOD COUNT 6.3 x10^3/uL (4.8-10.8)
[2018-12-27 05:01] LABS: VBG PH 7.44 (7.31-7.41)
[2018-12-27] MEDS: methylPREDNISolone SUCCINATE 40 MG/ML VIAL IVP SCH ×4 (06:10→23:56)
[2018-12-27] MEDS: BUDESONIDE 0.5 MG/2 ML NEB INH SCH ×2 (06:15→19:22)
[2018-12-27 06:38] LABS: ABG BASE EXCESS 4.4 mmol/L (-2.0-3.0); ABG HCO3 29.7 mmol/L (22.0-26.0); ABG OXYGEN SATURATION 98 % (94-98); ABG PCO2 48 mmHg (34-45); ABG PH 7.41 (7.35-7.45); ABG PO2 119 mmHg (80-100); ABG TCO2 31.2 MMOL/L (21.0-29.0); ALLEN TEST POSITIVE
[2018-12-27 06:42] LABS: ALBUMIN 2.6 g/dL (3.2-5.5); CALCIUM 8.3 mg/dL (8.5-10.3); CREATININE 0.4 mg/dL (0.4-1.0); PHOSPHORUS 4.1 mg/dL (2.5-4.6)
[2018-12-27] MEDS ORDERED: METHYLNALTREXONE 12 MG/0.6 ML VIAL SUBQ PRN (06:52)
[2018-12-27 07:37] LABS: % IRON SATURATION 10 % (20-50); IRON 27 ug/dL (28-170); TOTAL IRON BINDING CAPACITY 283 ug/dL (250-450); TRANSFERRIN 202 mg/dL (192-382)
[2018-12-27] MEDS: INSULIN ASPART 300 UNIT/3 ML PEN SUBQ SCH ×4 (08:55→21:00)
[2018-12-27] MEDS: LORazepam 2 MG/ML VIAL IVP PRN ×3 (11:05→19:40)
[2018-12-27] MEDS: SODIUM CHLORIDE FLUSH 0.9% 10 ML SYRINGE IVP SCH ×3 (11:09→19:39)
[2018-12-27] MEDS: ENOXAPARIN 40 MG/0.4 ML SYRINGE SUBQ SCH (11:15)
[2018-12-27] MEDS: guaiFENesin 600 MG TABLET PO SCH ×2 (11:16→20:59)
[2018-12-27] MEDS: diltiaZEM CD 120 MG CAPSULE PO SCH (11:16)
[2018-12-27] MEDS: THEOPHYLLINE ER 300 MG TABLET PO SCH (11:16)
[2018-12-27] MEDS: SERTRALINE 50 MG TABLET PO SCH (11:16)
[2018-12-27] MEDS: FAMOTIDINE 20 MG/50 ML 50 ML IV SCH (11:20)
[2018-12-27] MEDS: POLYETHYLENE GLYCOL 3350 17 GM PACKET PO SCH (11:38)
[2018-12-27] MEDS: diltiaZEM INJ 5 MG/ML VIAL IVP PRN ×2 (12:25→18:01)
[2018-12-27] MEDS: FERRIC GLUCONATE 125 MG in SODIUM CHLORIDE 0.9% 100ML 100 ML IV SCH (13:02)
[2018-12-27] MEDS: CHLORHEXIDINE GLUCONATE 15 ML UDC PO SCH ×2 (13:07→20:59)
--- NOTE | 2018-12-27 13:07 | PROVIDER PROGRESS NOTE ---
Subjective - Prog Note Date Prog Note Date: 12/27/18 Prog Note Time: 13:05 - Subjective Pt reports feeling: No change (Patient is showing symptoms of opiate withdrawls) Current Medications - Current Medications Current Medications: Active Medications Albuterol/Ipratropium (Duoneb) 3 ml INH Q4HR [facility] Last Admin: 12/27/18 09:14 Dose: 3 ml Atorvastatin Calcium (Lipitor) 20 mg PO QPM [facility] Last Admin: 12/26/18 20:48 Dose: 20 mg Budesonide (Pulmicort) 0.5 mg INH RTBID [facility] Last Admin: 12/27/18 06:15 Dose: 0.5 mg Buprenorphine (Buprenex) 0.3 mg IVP Q2HR [facility] Chlorhexidine Gluconate (Peridex) 15 ml PO BID [facility] Diltiazem HCl (Cardizem Cd) 120 mg PO DAILY [facility] Last Admin: 12/27/18 11:16 Dose: 120 mg Diltiazem HCl (Cardizem Inj) 10 mg IVP Q4HR PRN PRN Reason: HR>120, hold if SBP<100 Last Admin: 12/27/18 12:25 Dose: 10 mg Enoxaparin Sodium (Lovenox) 40 mg SUBQ DAILY [facility] Last Admin: 12/27/18 11:15 Dose: 40 mg Guaifenesin (Mucinex) 600 mg PO BID [facility] Last Admin: 12/27/18 11:16 Dose: 600 mg Famotidine (Pepcid 20 Mg/50 Ml) 50 mls @ 100 mls/hr IV DAILY [facility] Last Infusion: 12/27/18 11:50 Dose: Infused Ferric Sodium Gluconate Complex 125 mg/ Sodium Chloride 110 mls @ 100 mls/hr IV DAILY [facility] Stop: 12/29/18 12:29 Last Admin: 12/27/18 13:02 Dose: 100 mls/hr Insulin Aspart (Novolog) 2 - 10 unit SUBQ 0800,1200,1700,2100 [facility]; Protocol Last Admin: 12/27/18 11:57 Dose: Not Given Lorazepam (Ativan Inj (Vial)) 1 mg IVP Q2H PRN PRN Reason: Anxiety Last Admin: 12/27/18 11:05 Dose: 1 mg Methylprednisolone (Solu-Medrol (40mg Vial)) 80 mg IVP Q6HR [facility] Last Admin: 12/27/18 12:21 Dose: 80 mg Mineral Oil (Cavilon) 1 applic TOP Q4H PRN PRN Reason: Skin Care Last Admin: 12/26/18 19:35 Dose: 1 applic Montelukast Sodium (Singulair) 10 mg PO QPM [facility] Last Admin: 12/26/18 20:48 Dose: 10 mg Ondansetron HCl (Zofran Inj) 4 mg IVP Q6HR PRN PRN Reason: Nausea / Vomiting Last Admin: 12/27/18 11:08 Dose: 4 mg Ondansetron HCl (Zofran Odt) 4 mg TL Q6HR PRN PRN Reason: Nausea / Vomiting Polyethylene Glycol (Miralax) 17 gm PO DAILY [facility] Last Admin: 12/27/18 11:38 Dose: 17 gm Sertraline HCl (Zoloft) 50 mg PO DAILY [facility] Last Admin: 12/27/18 11:16 Dose: 50 mg Sodium Chloride (Normal Saline Flush 0.9%) 10 ml IVP 0100,0900,1700 [facility] Last Admin: 12/27/18 11:09 Dose: 10 ml Sodium Chloride (Normal Saline Flush 0.9%) 10 ml IVP PRN PRN PRN Reason: NEEDED PER PROVIDER ORDERS Last Admin: 12/27/18 11:10 Dose: 10 ml Theophylline (Theodur) 300 mg PO DAILY [facility] Last Admin: 12/27/18 11:16 Dose: 300 mg Albuterol Sulfate [Proair Hfa Inhaler] 1 puffs INH Q6H PRN 08/31/16 Polyethylene Glycol 3350 [Miralax] 17 g PO DAILY 10/19/18 Albuterol 2.5 mg INH Q4H PRN 11/19/18 Atorvastatin Calcium 20 mg PO QPM 12/10/18 House Bowel Program 1 tab PO DAILY PRN 12/13/18 Insulin Lispro [Humalog Kwikpen U-100] 1 - 10 unit SQ ACHS MDD sliding scale 12/13/18 Morphine Sulfate [Morphine Sulf Oral (Roxanol)] 5 mg PO TID 12/13/18 Potassium Chloride [Klor-Con] 40 meq PO DAILYWM 12/26/18 Objective - Vital Signs/Intake & Output Reviewed Vital Signs: Yes Vital Signs: Vital Signs x48h Temp Pulse Pulse Resp BP BP Pulse Ox 12/27/18 12:35 121 H 19 112/58 L 96 12/27/18 12:30 120 H 18 114/60 98 12/27/18 12:25 122 H 19 118/62 118/62 98 12/27/18 11:15 135 H 12/27/18 09:24 116 H 12/27/18 09:13 115 H 19 12/27/18 08:03 115 H 12/27/18 08:00 36.8 C 116 H 20 104/52 L 91 L 12/27/18 07:15 115 H 12/27/18 07:00 114 H 16 112/56 L 97 12/27/18 06:15 113 H 18 Intake & Output: Intake & Output 12/24/18 12/25/18 12/26/18 12/27/18 23:59 23:59 23:59 23:59 Intake Total 1750 490 Output Total 200 300 Balance 1550 190 - Objective General Appearance: positive: Alert, Moderate distress, Anxious Eyes Bilateral: positive: Normal inspection, PERRL, EOMI, No lid inflammation, Conjunctivae nml, No scleral icterus ENT: positive: Pharynx nml, No signs of dehydration Neck: positive: Nml inspection, Thyroid nml, No JVD, Trachea midline. negative: Thyromegaly, Carotid bruit Respiratory: positive: Chest non-tender (Tachypneic with poor aireay entry and prolong expiratory phase), Rhonchi. negative: Wheezes, Rales Cardiovascular: positive: Regular rate & rhythm, No murmur, No gallop, Tachycardia. negative: Irregularly irregular, PMI displaced laterally, JVD present, Systolic murmur, Diastolic murmur, Gallop/S3, Gallop/S4, Friction rub Peripheral Pulses: 2+ Dorsalis pedis (R), 2+ Dorsalis pedis (L) Abdomen: positive: Non-tender, No organomegaly, Nml bowel sounds, No distention Skin: positive: Color nml, No rash. negative: Pallor Extremities: positive: Non-tender, Full ROM, Nml appearance. negative: Pedal edema, Calf tenderness, Florecita's sign/cords Neurologic/Psychiatric: positive: Oriented x3, CN's nml (2-12) - Lab Results Fish Bones: 12/27/18 04:45 12/27/18 04:45 Other Labs: Lab Results x24hrs 12/27/18 12/27/18 12/27/18 Range/Units 06:32 04:45 04:45 WBC (4.8-10.8) x10^3/uL RBC (4.20-5.40) 10^6/uL Hgb (12.0-16.0) g/dL Hct (37.0-47.0) % MCV (81.0-99.0) fL MCH (27.0-31.0) pg MCHC (32.0-36.0) g/dL RDW (12.0-15.0) % Plt Count (130-450) 10^3/uL MPV (7.9-10.8) fL Neut # (Auto) (1.5-6.6) 10^3/uL Lymph # (Auto) (1.5-3.5) 10^3/uL [place] # (Auto) (0.0-1.0) 10^3/uL Eos # (Auto) (0.0-0.7) 10^3/uL Baso # (Auto) (0.0-0.1) 10^3/uL Absolute Nucleated RBC x10^3/uL Nucleated RBC % /100WBC Bld Gas Analysis Time 0635 Sample Site RIGHT RADIAL ABG pH 7.41 (7.35-7.45) ABG pCO2 48 H (34-45) mmHg ABG pO2 119 H (80-100) mmHg ABG HCO3 29.7 H (22.0-26.0) mmol/L ABG Total CO2 31.2 H (21.0-29.0) MMOL/L ABG O2 Saturation 98 (94-98) % ABG Base Excess 4.4 H (-2.0-3.0) mmol/L Heriberto Test POSITIVE VBG pH 7.440 H (7.31-7.41) Ionized Calcium 1.07 L (1.15-1.33) mmol/L Respiration Rate 16 b/min O2 Delivery Device BiPAP Vent Mode SYNCHRONOUS/TIMES FiO2 40.00 PEEP 5 cmH2O Pressure Support Vent 7 cmH2O EPAP 5 cmH2O IPAP 12 cmH2O Sodium (135-145) mmol/L Potassium (3.5-5.0) mmol/L Chloride (101-111) mmol/L Carbon Dioxide (21-32) mmol/L Anion Gap (6-13) BUN (6-20) mg/dL Creatinine (0.4-1.0) mg/dL Estimated GFR (MDRD) (>89) Glucose (70-100) mg/dL Glycated Hemoglobin (4.6-6.2) % Estim Average Glucose (70-100) Lactic Acid (0.5-2.2) mmol/L Calcium (8.5-10.3) mg/dL Phosphorus (2.5-4.6) mg/dL Magnesium (1.7-2.8) mg/dL Iron 27 L (28-170) ug/dL TIBC 283 (250-450) ug/dL % Saturation 10 L (20-50) % Transferrin 202 (192-382) mg/dL Albumin (3.2-5.5) g/dL Influenza A (Rapid) (Negative) Influenza B (Rapid) (Negative) MRSA Surveill Initial (NEGATIVE) Group A Strep Rapid (Negative) 12/27/18 12/27/18 12/27/18 Range/Units 04:45 04:45 04:45 WBC (4.8-10.8) x10^3/uL RBC (4.20-5.40) 10^6/uL Hgb (12.0-16.0) g/dL Hct (37.0-47.0) % MCV (81.0-99.0) fL MCH (27.0-31.0) pg MCHC (32.0-36.0) g/dL RDW (12.0-15.0) % Plt Count (130-450) 10^3/uL MPV (7.9-10.8) fL Neut # (Auto) (1.5-6.6) 10^3/uL Lymph # (Auto) (1.5-3.5) 10^3/uL [place] # (Auto) (0.0-1.0) 10^3/uL Eos # (Auto) (0.0-0.7) 10^3/uL Baso # (Auto) (0.0-0.1) 10^3/uL Absolute Nucleated RBC x10^3/uL Nucleated RBC % /100WBC Bld Gas Analysis Time Sample Site ABG pH (7.35-7.45) ABG pCO2 (34-45) mmHg ABG pO2 (80-100) mmHg ABG HCO3 (22.0-26.0) mmol/L ABG Total CO2 (21.0-29.0) MMOL/L ABG O2 Saturation (94-98) % ABG Base Excess (-2.0-3.0) mmol/L Heriberto Test VBG pH (7.31-7.41) Ionized Calcium (1.15-1.33) mmol/L Respiration Rate b/min O2 Delivery Device Vent Mode FiO2 PEEP cmH2O Pressure Support Vent cmH2O EPAP cmH2O IPAP cmH2O Sodium 129 L (135-145) mmol/L Potassium 4.6 (3.5-5.0) mmol/L Chloride 93 L (101-111) mmol/L Carbon Dioxide 27 (21-32) mmol/L Anion Gap 9.0 (6-13) BUN 16 (6-20) mg/dL Creatinine 0.4 (0.4-1.0) mg/dL Estimated GFR (MDRD) 159 (>89) Glucose 135 H (70-100) mg/dL Glycated Hemoglobin (4.6-6.2) % Estim Average Glucose (70-100) Lactic Acid 0.9 (0.5-2.2) mmol/L Calcium 8.3 L (8.5-10.3) mg/dL Phosphorus 4.0 4.1 (2.5-4.6) mg/dL Magnesium 2.0 (1.7-2.8) mg/dL Iron (28-170) ug/dL TIBC (250-450) ug/dL % Saturation (20-50) % Transferrin (192-382) mg/dL Albumin 2.6 L (3.2-5.5) g/dL Influenza A (Rapid) (Negative) Influenza B (Rapid) (Negative) MRSA Surveill Initial (NEGATIVE) Group A Strep Rapid (Negative) 12/27/18 12/27/18 12/26/18 Range/Units 04:45 00:40 19:41 WBC 6.3 (4.8-10.8) x10^3/uL RBC 3.15 L (4.20-5.40) 10^6/uL Hgb 8.9 L (12.0-16.0) g/dL Hct 27.6 L (37.0-47.0) % MCV 87.6 (81.0-99.0) fL MCH 28.3 (27.0-31.0) pg MCHC 32.3 (32.0-36.0) g/dL RDW 16.3 H (12.0-15.0) % Plt Count 255 (130-450) 10^3/uL MPV 6.6 L (7.9-10.8) fL Neut # (Auto) 5.7 (1.5-6.6) 10^3/uL Lymph # (Auto) 0.5 L (1.5-3.5) 10^3/uL [place] # (Auto) 0.1 (0.0-1.0) 10^3/uL Eos # (Auto) 0.0 (0.0-0.7) 10^3/uL Baso # (Auto) 0.0 (0.0-0.1) 10^3/uL Absolute Nucleated RBC 0.00 x10^3/uL Nucleated RBC % 0.0 /100WBC Bld Gas Analysis Time Sample Site ABG pH (7.35-7.45) ABG pCO2 (34-45) mmHg ABG pO2 (80-100) mmHg ABG HCO3 (22.0-26.0) mmol/L ABG Total CO2 (21.0-29.0) MMOL/L ABG O2 Saturation (94-98) % ABG Base Excess (-2.0-3.0) mmol/L Heriberto Test VBG pH (7.31-7.41) Ionized Calcium (1.15-1.33) mmol/L Respiration Rate b/min O2 Delivery Device Vent Mode FiO2 PEEP cmH2O Pressure Support Vent cmH2O EPAP cmH2O IPAP cmH2O Sodium (135-145) mmol/L Potassium (3.5-5.0) mmol/L Chloride (101-111) mmol/L Carbon Dioxide (21-32) mmol/L Anion Gap (6-13) BUN (6-20) mg/dL Creatinine (0.4-1.0) mg/dL Estimated GFR (MDRD) (>89) Glucose (70-100) mg/dL Glycated Hemoglobin (4.6-6.2) % Estim Average Glucose (70-100) Lactic Acid 0.8 1.7 (0.5-2.2) mmol/L Calcium (8.5-10.3) mg/dL Phosphorus (2.5-4.6) mg/dL Magnesium (1.7-2.8) mg/dL Iron (28-170) ug/dL TIBC (250-450) ug/dL % Saturation (20-50) % Transferrin (192-382) mg/dL Albumin (3.2-5.5) g/dL Influenza A (Rapid) (Negative) Influenza B (Rapid) (Negative) MRSA Surveill Initial (NEGATIVE) Group A Strep Rapid (Negative) 12/26/18 12/26/18 12/26/18 Range/Units 15:36 14:50 14:50 WBC (4.8-10.8) x10^3/uL RBC (4.20-5.40) 10^6/uL Hgb (12.0-16.0) g/dL Hct (37.0-47.0) % MCV (81.0-99.0) fL MCH (27.0-31.0) pg MCHC (32.0-36.0) g/dL RDW (12.0-15.0) % Plt Count (130-450) 10^3/uL MPV (7.9-10.8) fL Neut # (Auto) (1.5-6.6) 10^3/uL Lymph # (Auto) (1.5-3.5) 10^3/uL [place] # (Auto) (0.0-1.0) 10^3/uL Eos # (Auto) (0.0-0.7) 10^3/uL Baso # (Auto) (0.0-0.1) 10^3/uL Absolute Nucleated RBC x10^3/uL Nucleated RBC % /100WBC Bld Gas Analysis Time Sample Site ABG pH (7.35-7.45) ABG pCO2 (34-45) mmHg ABG pO2 (80-100) mmHg ABG HCO3 (22.0-26.0) mmol/L ABG Total CO2 (21.0-29.0) MMOL/L ABG O2 Saturation (94-98) % ABG Base Excess (-2.0-3.0) mmol/L Heriberto Test VBG pH (7.31-7.41) Ionized Calcium (1.15-1.33) mmol/L Respiration Rate b/min O2 Delivery Device Vent Mode FiO2 PEEP cmH2O Pressure Support Vent cmH2O EPAP cmH2O IPAP cmH2O Sodium (135-145) mmol/L Potassium (3.5-5.0) mmol/L Chloride (101-111) mmol/L Carbon Dioxide (21-32) mmol/L Anion Gap (6-13) BUN (6-20) mg/dL Creatinine (0.4-1.0) mg/dL Estimated GFR (MDRD) (>89) Glucose (70-100) mg/dL Glycated Hemoglobin 5.8 (4.6-6.2) % Estim Average Glucose 120 H (70-100) Lactic Acid (0.5-2.2) mmol/L Calcium (8.5-10.3) mg/dL Phosphorus (2.5-4.6) mg/dL Magnesium (1.7-2.8) mg/dL Iron (28-170) ug/dL TIBC (250-450) ug/dL % Saturation (20-50) % Transferrin (192-382) mg/dL Albumin (3.2-5.5) g/dL Influenza A (Rapid) Negative (Negative) Influenza B (Rapid) Negative (Negative) MRSA Surveill Initial (NEGATIVE) Group A Strep Rapid Negative (Negative) 12/26/18 Range/Units 14:43 WBC (4.8-10.8) x10^3/uL RBC (4.20-5.40) 10^6/uL Hgb (12.0-16.0) g/dL Hct (37.0-47.0) % MCV (81.0-99.0) fL MCH (27.0-31.0) pg MCHC (32.0-36.0) g/dL RDW (12.0-15.0) % Plt Count (130-450) 10^3/uL MPV (7.9-10.8) fL Neut # (Auto) (1.5-6.6) 10^3/uL Lymph # (Auto) (1.5-3.5) 10^3/uL [place] # (Auto) (0.0-1.0) 10^3/uL Eos # (Auto) (0.0-0.7) 10^3/uL Baso # (Auto) (0.0-0.1) 10^3/uL Absolute Nucleated RBC x10^3/uL Nucleated RBC % /100WBC Bld Gas Analysis Time Sample Site ABG pH (7.35-7.45) ABG pCO2 (34-45) mmHg ABG pO2 (80-100) mmHg ABG HCO3 (22.0-26.0) mmol/L ABG Total CO2 (21.0-29.0) MMOL/L ABG O2 Saturation (94-98) % ABG Base Excess (-2.0-3.0) mmol/L Heriberto Test VBG pH (7.31-7.41) Ionized Calcium (1.15-1.33) mmol/L Respiration Rate b/min O2 Delivery Device Vent Mode FiO2 PEEP cmH2O Pressure Support Vent cmH2O EPAP cmH2O IPAP cmH2O Sodium (135-145) mmol/L Potassium (3.5-5.0) mmol/L Chloride (101-111) mmol/L Carbon Dioxide (21-32) mmol/L Anion Gap (6-13) BUN (6-20) mg/dL Creatinine (0.4-1.0) mg/dL Estimated GFR (MDRD) (>89) Glucose (70-100) mg/dL Glycated Hemoglobin (4.6-6.2) % Estim Average Glucose (70-100) Lactic Acid (0.5-2.2) mmol/L Calcium (8.5-10.3) mg/dL Phosphorus (2.5-4.6) mg/dL Magnesium (1.7-2.8) mg/dL Iron (28-170) ug/dL TIBC (250-450) ug/dL % Saturation (20-50) % Transferrin (192-382) mg/dL Albumin (3.2-5.5) g/dL Influenza A (Rapid) (Negative) Influenza B (Rapid) (Negative) MRSA Surveill Initial NEGATIVE (NEGATIVE) Group A Strep Rapid (Negative) ABX Reporting Has patient been on IV antibiotics over the past 48 hours?: Yes Sepsis Event Note (H) - Evaluation Current Stage of Sepsis: Ruled out (steroid induced leukocytosis, lactic acidosis related to V/Q mismatching, VS, tachycardia, tachypnea R/T to opiate withdrawals) Assessment/Plan - Problem List (1) HCAP (healthcare-associated pneumonia) Impression: Continue with IV cefepime and vancomycin, flu neg, send for mycoplasma, rapid strept neg, sputum gram stain shows 3+ gram neg nanda growth, awaiting culture, blood cultures to follow, lactic acid elevated initially and now normal. Would continue with med mgmt for PF/COPD mgmt. (2) Opiate withdrawal Impression: Morphine discontinued and placed on Buprenorphine and started on induction tx for morphine dependence, also given ativaan to for tachycardic events and to help with severe anxiety. Consider Precedex gtt if this fails. Patient was on roxanol 5 mg po tid back at [facility] (3) Acute on chronic respiratory failure with hypoxia and hypercapnia Impression: Patient remains on Bipap, good 02 saturations, but tachycardic as this may be related to her sever anxiety and opiate withdrawals, patient with pre-existing end-stage COPD with PF and unlikely the spiculated RUL nodule which does not appear to have a "post-obstructive" process. Continue with theophyllin to augment bronchodilatory effects along with current RT neb, inh steroid mgmt. Check level in am. Continue with empirically with IV abx as delineated for HCAP and COPD exacerbation with sputum production. (4) End stage COPD Impression: Patient with monthly admits approximately with recurrent COPD exacerbations. Would place on IV steroids, singulair, pulmicort nebs, duonebs, sputum for gram stain and culture, Bipap, pulmonary toileting, acapella with CPT. Daily abg's, labs. Has associated pulmonary fibrosis, with pulm htn, optimize medical mgmt. Has sputum production so will be treated with empiric IV abx for both HCAP and COPD exacerbation. Palliative care consultation to re-eval goals of care, sy mptom mgmt and possibly address her code status to see if she may be amenable to hospice option due to her high LACE scores and multiple admissions along with worsening disease trajectory w/ her end-stage COPD. Palliative care: Goals of care addressed and will remain a full code until she has more in depth conversation with palliative care service. 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 Re-demonstrated 11 mm nodule to RUL. Patient has been seen as outpatient oncology and with known "spiculated" RUL nodule which may be malignant. Unclear if this was biopsied or with serial CT scans indicated. (6) Hyponatremia Impression: Secondary PNA vs maybe non-small cell associated SIADH production, unclear. Has decreased from yesterday with no AMS, however if this develops with seizures may need hypertonic saline or demclocycline (7) Advanced care planning/counseling discussion Impression: Patient with end-stage copd/PF who his steroid and o2 dependent with multiple a dmissions who p/w acute on chronic hypoxemic/hypercapneic RF. I discussed her severity of illness and in the event of an intubation she likely would not be able to be extubated and will need a tracheostomy. Patient wanted think about her code status at a later time but remains FULL code despite her poor long-term prognosis related to her condition. I had conveyed to her the trajectory of illness and will re-engage palliative care services to go over her goals of care, symptom mgmt and perhaps peer counselor and educate patient on her illness severity and prognosis as it relates to her anxiety and provider burden which are both evident on these past admissions.
[2018-12-27] MEDS: BUPRENORPHINE 0.3 MG/ML VIAL IVP SCH ×8 (13:30→23:56)
[2018-12-27] MEDS: VANCOMYCIN INJ 1 GM in SODIUM CHLORIDE 0.9% 250 ML IV SCH (19:39)
[2018-12-27] MEDS: ATORVASTATIN 10 MG TABLET PO SCH (20:59)
[2018-12-27] MEDS: MONTELUKAST 10 MG TABLET PO SCH (20:59)
[2018-12-28] MEDS: IPRATROPIUM/ALBUTEROL 3 ML NEB INH SCH ×6 (01:35→21:21)
[2018-12-28] MEDS: BUPRENORPHINE 0.3 MG/ML VIAL IVP SCH ×8 (02:52→21:51)
[2018-12-28 05:19] LABS: MAGNESIUM 2.3 mg/dL (1.7-2.8); PHOSPHORUS 3.5 mg/dL (2.5-4.6)
[2018-12-28 05:28] LABS: VBG PH 7.415 (7.31-7.41)
[2018-12-28] MEDS: methylPREDNISolone SUCCINATE 40 MG/ML VIAL IVP SCH ×3 (05:54→18:04)
[2018-12-28] MEDS: INSULIN ASPART 300 UNIT/3 ML PEN SUBQ SCH ×4 (07:46→21:52)
[2018-12-28] MEDS ORDERED: BUPRENORPHINE 0.3 MG/ML VIAL IVP SCH (08:00)
[2018-12-28] MEDS: VANCOMYCIN INJ 1 GM in SODIUM CHLORIDE 0.9% 250 ML IV SCH (08:08)
[2018-12-28] MEDS ORDERED: CEFEPIME 1 GM in SODIUM CHLORIDE 0.9% MINIBAG 100 ML IV SCH ×3 (09:00→10:00)
[2018-12-28] MEDS: BUDESONIDE 0.5 MG/2 ML NEB INH SCH ×2 (09:13→21:22)
[2018-12-28] MEDS: CHLORHEXIDINE GLUCONATE 15 ML UDC PO SCH ×2 (09:35→22:09)
[2018-12-28] MEDS: diltiaZEM CD 120 MG CAPSULE PO SCH (09:35)
[2018-12-28] MEDS: ENOXAPARIN 40 MG/0.4 ML SYRINGE SUBQ SCH (09:36)
[2018-12-28] MEDS: guaiFENesin 600 MG TABLET PO SCH ×2 (09:38→21:50)
[2018-12-28] MEDS: SERTRALINE 50 MG TABLET PO SCH (09:38)
[2018-12-28 09:42] LABS: HGB - HEMOGLOBIN 8.9 g/dL (12.0-16.0); LYMPHOCYTES # (AUTO) 0.4 10^3/uL (1.5-3.5); LYMPHOCYTES % (AUTO) 4.1 %; MEAN CORPUSCULAR HEMOGLOBIN 28.7 pg (27.0-31.0); MEAN CORPUSCULAR HGB CONC 33.3 g/dL (32.0-36.0); MEAN PLATELET VOLUME 6.5 fL (7.9-10.8); MONOCYTES # (AUTO) 0.2 10^3/uL (0.0-1.0); MONOCYTES % (AUTO) 2.2 %; NEUTROPHILS # (AUTO) 9.8 10^3/uL (1.5-6.6); NEUTROPHILS % (AUTO) 93.7 %; PLT - PLATELET COUNT 288 10^3/uL (130-450); RED CELL DISTRIBUTION WIDTH 16.2 % (12.0-15.0); WHITE BLOOD COUNT 10.4 x10^3/uL (4.8-10.8)
[2018-12-28 09:56] LABS: ALBUMIN 2.8 g/dL (3.2-5.5); CALCIUM 8.5 mg/dL (8.5-10.3); CREATININE 0.5 mg/dL (0.4-1.0); PHOSPHORUS 3.6 mg/dL (2.5-4.6)
[2018-12-28] MEDS: FAMOTIDINE 20 MG/50 ML 50 ML IV SCH (10:27)
[2018-12-28] MEDS: FERRIC GLUCONATE 125 MG in SODIUM CHLORIDE 0.9% 100ML 100 ML IV SCH (11:55)
[2018-12-28] MEDS ORDERED: diazePAM 5 MG TABLET PO SCH (12:00)
--- NOTE | 2018-12-28 15:31 | PROVIDER PROGRESS NOTE ---
Subjective - Prog Note Date Prog Note Date: 12/28/18 Prog Note Time: 15:29 - Subjective Pt reports feeling: Improved (Patient has tolerated more than 1 hr at a time off bipap, very anxious, slightly improved) Current Medications - Current Medications Current Medications: Active Medications Albuterol/Ipratropium (Duoneb) 3 ml INH Q4HR [facility] Last Admin: 12/28/18 13:15 Dose: 3 ml Atorvastatin Calcium (Lipitor) 20 mg PO QPM [facility] Last Admin: 12/27/18 20:59 Dose: 20 mg Budesonide (Pulmicort) 0.5 mg INH RTBID [facility] Last Admin: 12/28/18 09:13 Dose: 0.5 mg Buprenorphine (Buprenex) 0.3 mg IVP Q4H [facility] Last Admin: 12/28/18 14:00 Dose: 0.3 mg Chlorhexidine Gluconate (Peridex) 15 ml PO BID [facility] Last Admin: 12/28/18 09:35 Dose: 15 ml Diazepam (Valium) 5 mg PO BID [facility] Last Admin: 12/28/18 13:28 Dose: 5 mg Diltiazem HCl (Cardizem Cd) 120 mg PO DAILY [facility] Last Admin: 12/28/18 09:35 Dose: 120 mg Diltiazem HCl (Cardizem Inj) 10 mg IVP Q4HR PRN PRN Reason: HR>120, hold if SBP<100 Last Admin: 12/27/18 18:01 Dose: 10 mg Enoxaparin Sodium (Lovenox) 40 mg SUBQ DAILY [facility] Last Admin: 12/28/18 09:36 Dose: 40 mg Guaifenesin (Mucinex) 600 mg PO BID [facility] Last Admin: 12/28/18 09:38 Dose: 600 mg Famotidine (Pepcid 20 Mg/50 Ml) 50 mls @ 100 mls/hr IV DAILY [facility] Last Infusion: 12/28/18 10:57 Dose: Infused Ferric Sodium Gluconate Complex 125 mg/ Sodium Chloride 110 mls @ 100 mls/hr IV DAILY [facility] Stop: 12/29/18 12:29 Last Admin: 12/28/18 11:55 Dose: 100 mls/hr Vancomycin HCl 1 gm/ Sodium (Chloride) 250 mls @ 167 mls/hr IV Q12H [facility] Last Infusion: 12/28/18 09:38 Dose: Infused Cefepime HCl 1 gm/ Sodium (Chloride) 100 mls @ 200 mls/hr IV DAILY [facility] Last Infusion: 12/28/18 13:40 Dose: Infused Insulin Aspart (Novolog) 2 - 10 unit SUBQ 0800,1200,1700,2100 [facility]; Protocol Last Admin: 12/28/18 12:00 Dose: 2 unit Lorazepam (Ativan Inj (Vial)) 1 mg IVP Q2H PRN PRN Reason: Anxiety Last Admin: 12/27/18 19:40 Dose: 1 mg Methylprednisolone (Solu-Medrol (40mg Vial)) 60 mg IVP Q6HR [facility] Last Admin: 12/28/18 11:58 Dose: 60 mg Mineral Oil (Cavilon) 1 applic TOP Q4H PRN PRN Reason: Skin Care Last Admin: 12/26/18 19:35 Dose: 1 applic Montelukast Sodium (Singulair) 10 mg PO QPM [facility] Last Admin: 12/27/18 20:59 Dose: 10 mg Ondansetron HCl (Zofran Inj) 4 mg IVP Q6HR PRN PRN Reason: Nausea / Vomiting Last Admin: 12/27/18 11:08 Dose: 4 mg Ondansetron HCl (Zofran Odt) 4 mg TL Q6HR PRN PRN Reason: Nausea / Vomiting Polyethylene Glycol (Miralax) 17 gm PO DAILY [facility] Last Admin: 12/27/18 11:38 Dose: 17 gm Sertraline HCl (Zoloft) 50 mg PO DAILY [facility] Last Admin: 12/28/18 09:38 Dose: 50 mg Sodium Chloride (Normal Saline Flush 0.9%) 10 ml IVP 0100,0900,1700 [facility] Last Admin: 12/27/18 19:39 Dose: 10 ml Sodium Chloride (Normal Saline Flush 0.9%) 10 ml IVP PRN PRN PRN Reason: NEEDED PER PROVIDER ORDERS Last Admin: 12/27/18 18:20 Dose: 10 ml Albuterol Sulfate [Proair Hfa Inhaler] 1 puffs INH Q6H PRN 08/31/16 Polyethylene Glycol 3350 [Miralax] 17 g PO DAILY 10/19/18 Albuterol 2.5 mg INH Q4H PRN 11/19/18 Atorvastatin Calcium 20 mg PO QPM 12/10/18 House Bowel Program 1 tab PO DAILY PRN 12/13/18 Insulin Lispro [Humalog Kwikpen U-100] 1 - 10 unit SQ ACHS MDD sliding scale 12/13/18 Morphine Sulfate [Morphine Sulf Oral (Roxanol)] 5 mg PO TID 12/13/18 Potassium Chloride [Klor-Con] 40 meq PO DAILYWM 12/26/18 Objective - Vital Signs/Intake & Output Vital Signs: Vital Signs x48h Temp Pulse Pulse Resp BP Pulse Ox 12/28/18 13:33 109 H 12/28/18 13:20 113 H 12/28/18 13:15 112 H 17 12/28/18 13:00 36.6 C 101 H 11 L 129/62 92 12/28/18 12:00 112 H 17 139/68 H 95 12/28/18 11:00 110 H 11 L 125/65 96 12/28/18 10:00 124 H 17 137/67 H 89 L 12/28/18 09:43 36.6 C 94 17 110/56 L 94 12/28/18 09:39 114 H 12/28/18 09:35 110 H 12/28/18 09:26 108 H 12/28/18 09:13 94 19 12/28/18 09:11 90 12/28/18 09:00 91 11 L 123/54 L 99 Intake & Output: Intake & Output 12/25/18 12/26/18 12/27/18 12/28/18 23:59 23:59 23:59 23:59 Intake Total 1750 1090.00 895 Output Total 200 500 Balance 1550 590.00 895 - Objective General Appearance: positive: No acute distress, Alert, Mild distress, Anxious Eyes Bilateral: positive: Normal inspection, PERRL, EOMI, Conjunctivae nml ENT: positive: ENT inspection nml, Pharynx nml, No signs of dehydration Neck: positive: Nml inspection, Thyroid nml, No JVD, Trachea midline. negative: Thyromegaly Respiratory: positive: Chest non-tender, No respiratory distress, Breath sounds nml Cardiovascular: positive: Regular rate & rhythm, No murmur, No gallop, Tachycardia. negative: JVD present, Gallop/S4 Abdomen: positive: Non-tender, No organomegaly, Nml bowel sounds, No distention. negative: Tenderness Back: positive: Nml inspection Skin: positive: Color nml, No rash, Warm, Dry, Cyanosis Extremities: positive: Non-tender, Full ROM, Nml appearance, No pedal edema Neurologic/Psychiatric: positive: Oriented x3, CN's nml (2-12) - Lab Results Fish Bones: 12/28/18 09:34 12/28/18 09:34 Other Labs: Lab Results x24hrs 12/28/18 12/28/18 12/28/18 Range/Units 09:34 09:34 05:40 WBC 10.4 (4.8-10.8) x10^3/uL RBC 3.10 L (4.20-5.40) 10^6/uL Hgb 8.9 L (12.0-16.0) g/dL Hct 26.7 L (37.0-47.0) % MCV 86.0 (81.0-99.0) fL MCH 28.7 (27.0-31.0) pg MCHC 33.3 (32.0-36.0) g/dL RDW 16.2 H (12.0-15.0) % Plt Count 288 (130-450) 10^3/uL MPV 6.5 L (7.9-10.8) fL Neut # (Auto) 9.8 H (1.5-6.6) 10^3/uL Lymph # (Auto) 0.4 L (1.5-3.5) 10^3/uL [place] # (Auto) 0.2 (0.0-1.0) 10^3/uL Eos # (Auto) 0.0 (0.0-0.7) 10^3/uL Baso # (Auto) 0.0 (0.0-0.1) 10^3/uL Absolute Nucleated RBC 0.01 x10^3/uL Nucleated RBC % 0.1 /100WBC VBG pH (7.31-7.41) Ionized Calcium (1.15-1.33) mmol/L Sodium 134 L (135-145) mmol/L Potassium 5.1 H (3.5-5.0) mmol/L Chloride 96 L (101-111) mmol/L Carbon Dioxide 30 (21-32) mmol/L Anion Gap 8.0 (6-13) BUN 23 H (6-20) mg/dL Creatinine 0.5 (0.4-1.0) mg/dL Estimated GFR (MDRD) 123 (>89) Glucose 158 H (70-100) mg/dL Calcium 8.5 (8.5-10.3) mg/dL Phosphorus 3.6 3.5 (2.5-4.6) mg/dL Magnesium 2.3 (1.7-2.8) mg/dL Albumin 2.8 L (3.2-5.5) g/dL 12/28/18 Range/Units 04:40 WBC (4.8-10.8) x10^3/uL RBC (4.20-5.40) 10^6/uL Hgb (12.0-16.0) g/dL Hct (37.0-47.0) % MCV (81.0-99.0) fL MCH (27.0-31.0) pg MCHC (32.0-36.0) g/dL RDW (12.0-15.0) % Plt Count (130-450) 10^3/uL MPV (7.9-10.8) fL Neut # (Auto) (1.5-6.6) 10^3/uL Lymph # (Auto) (1.5-3.5) 10^3/uL [place] # (Auto) (0.0-1.0) 10^3/uL Eos # (Auto) (0.0-0.7) 10^3/uL Baso # (Auto) (0.0-0.1) 10^3/uL Absolute Nucleated RBC x10^3/uL Nucleated RBC % /100WBC VBG pH 7.415 H (7.31-7.41) Ionized Calcium 1.10 L (1.15-1.33) mmol/L Sodium (135-145) mmol/L Potassium (3.5-5.0) mmol/L Chloride (101-111) mmol/L Carbon Dioxide (21-32) mmol/L Anion Gap (6-13) BUN (6-20) mg/dL Creatinine (0.4-1.0) mg/dL Estimated GFR (MDRD) (>89) Glucose (70-100) mg/dL Calcium (8.5-10.3) mg/dL Phosphorus (2.5-4.6) mg/dL Magnesium (1.7-2.8) mg/dL Albumin (3.2-5.5) g/dL ABX Reporting Has patient been on IV antibiotics over the past 48 hours?: Yes Sepsis Event Note (H) - Evaluation Current Stage of Sepsis: Ruled out (steroid induced leukocytosis, lactic acidosis related to V/Q mismatching, VS, tachycardia, tachypnea R/T to opiate withdrawals and or theophylline administration) Assessment/Plan - Problem List (1) HCAP (healthcare-associated pneumonia) Impression: Continue with IV cefepime and d/c vancomycin as resp sputum cx growing 3+ MDR enterobacter cloacae with sensitivities to cephalosporins, flu neg, 3+ yeast growth also seen, Would continue with aggressive pulm toilet, CPT, nebs, sin gulair, incentive gus; with med mgmt for PF/COPD mgmt. (2) Opiate withdrawal Impression: Much improved now on IV buprenorphine with adjunctive tx with now po diazepam and IV ativan. Hx of morphine dependence which was seen at [facility]. Previously patient was on roxanol 5 mg po tid with q 2hr prn for dyspnea and not pulmonary edema. (3) Acute on chronic respiratory failure with hypoxia and hypercapnia Impression: Continue with current medical mgmt and Bipap mgmt. Has been able to go off 1-2 hrs at a time to eat, but unable to tolerate NC or oximizer, Patient tachycardic as this may be related to her severe anxiety, theophylline side effects which have been discontinued and improved opiate withdrawals. Patient with pre-existing end-stage COPD with PF and unlikely the spiculated RUL nodule which does not appear to have a "post-obstructive" process. Cont with current RT nebs, inh steroid mgmt, IV steroids, CPT started, pulm toilet, incentive gus, singulair. Continue with empirically with IV abx as delineated for HCAP and COPD exacerbation with sputum production. (4) End stage COPD Impression: Continue with current NIPPV and med mgmt. Patient with monthly admits approximately with recurrent COPD exacerbations. Has associated pulmonary fibrosis, with pulm htn, optimize medical mgmt. Palliative care: Goals of care addressed and will remain a full code until she has more in depth conversation with palliative care service. 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 Re-demonstrated 11 mm nodule to RUL. Patient has been seen as outpatient oncology and with known "spiculated" RUL nodule which may be malignant. Unclear if this was biopsied or with serial CT scans indicated. (6) Hyponatremia Impression: Secondary PNA vs maybe non-small cell associated SIADH production, unclear. Has decreased from yesterday with no AMS, however if this develops with seizures may need hypertonic saline or demclocycline (7) Advanced care planning/counseling discussion Impression: Patient with end-stage copd/PF who his steroid and o2 dependent with multiple admissions who p/w acute on chronic hypoxemic/hypercapneic RF. I discussed her severity of illness and in the event of an intubation she likely would not be able to be extubated and will need a tracheostomy. Patient wanted think about her code status at a later time but remains FULL code despite her poor long-term prognosis related to her condition. I had conveyed to her the trajectory of illness and will re-engage palliative care services to go over her goals of care, symptom mgmt and perhaps personal counselor and educate patient on her illness severity and prognosis as it relates to her anxiety and provider burden which are both evident on these past admissions. (8) Iron deficiency anemia Impression: IV iron for 3 days. Qualifiers: Iron deficiency anemia type: unspecified iron deficiency Qualified Code(s): D50.9 - Iron deficiency anemia, unspecified
[2018-12-28] MEDS: POLYETHYLENE GLYCOL 3350 17 GM PACKET PO SCH (15:34)
[2018-12-28] MEDS: SODIUM CHLORIDE FLUSH 0.9% 10 ML SYRINGE IVP SCH ×2 (15:35→18:07)
[2018-12-28] MEDS: ATORVASTATIN 10 MG TABLET PO SCH (21:50)
[2018-12-28] MEDS: CEFEPIME 2 GM in SODIUM CHLORIDE 0.9% MINIBAG 100 ML IV SCH (21:50)
[2018-12-28] MEDS: diazePAM 5 MG TABLET PO SCH (21:50)
[2018-12-28] MEDS: MONTELUKAST 10 MG TABLET PO SCH (22:02)
[2018-12-29] MEDS: methylPREDNISolone SUCCINATE 40 MG/ML VIAL IVP SCH ×2 (00:41→06:24)
[2018-12-29] MEDS: SODIUM CHLORIDE FLUSH 0.9% 10 ML SYRINGE IVP SCH ×3 (00:41→16:07)
[2018-12-29] MEDS: IPRATROPIUM/ALBUTEROL 3 ML NEB INH SCH ×6 (01:44→19:25)
[2018-12-29] MEDS: BUPRENORPHINE 0.3 MG/ML VIAL IVP SCH ×6 (03:30→22:55)
[2018-12-29 05:53] LABS: VBG PH 7.371 (7.31-7.41)
[2018-12-29 05:57] LABS: BASOPHILS % (AUTO) 0.1 %; HGB - HEMOGLOBIN 9.2 g/dL (12.0-16.0); LYMPHOCYTES # (AUTO) 0.4 10^3/uL (1.5-3.5); LYMPHOCYTES % (AUTO) 3.5 %; MEAN CORPUSCULAR HEMOGLOBIN 28.4 pg (27.0-31.0); MEAN CORPUSCULAR HGB CONC 31.9 g/dL (32.0-36.0); MEAN CORPUSCULAR VOLUME 89.2 fL (81.0-99.0); MEAN PLATELET VOLUME 6.7 fL (7.9-10.8); MONOCYTES # (AUTO) 0.2 10^3/uL (0.0-1.0); MONOCYTES % (AUTO) 2.2 %; NEUTROPHILS # (AUTO) 9.6 10^3/uL (1.5-6.6); NEUTROPHILS % (AUTO) 94.2 %; PLT - PLATELET COUNT 301 10^3/uL (130-450); RED BLOOD COUNT 3.23 10^6/uL (4.20-5.40); RED CELL DISTRIBUTION WIDTH 16.6 % (12.0-15.0); WHITE BLOOD COUNT 10.2 x10^3/uL (4.8-10.8)
[2018-12-29 06:10] LABS: CALCIUM 8.8 mg/dL (8.5-10.3); CREATININE 0.5 mg/dL (0.4-1.0); MAGNESIUM 2.5 mg/dL (1.7-2.8); PHOSPHORUS 3.8 mg/dL (2.5-4.6)
[2018-12-29] MEDS: SODIUM CHLORIDE FLUSH 0.9% 10 ML SYRINGE IVP PRN ×4 (06:24→18:13)
[2018-12-29] MEDS: CEFEPIME 2 GM in SODIUM CHLORIDE 0.9% MINIBAG 100 ML IV SCH ×2 (06:25→14:22)
[2018-12-29] MEDS: BUDESONIDE 0.5 MG/2 ML NEB INH SCH ×2 (07:24→19:25)
[2018-12-29] MEDS: INSULIN ASPART 300 UNIT/3 ML PEN SUBQ SCH ×4 (08:51→21:06)
[2018-12-29] MEDS: CHLORHEXIDINE GLUCONATE 15 ML UDC PO SCH (08:52)
[2018-12-29] MEDS: diazePAM 5 MG TABLET PO SCH ×2 (08:54→21:06)
[2018-12-29] MEDS: ENOXAPARIN 40 MG/0.4 ML SYRINGE SUBQ SCH (08:54)
[2018-12-29] MEDS: FAMOTIDINE 20 MG/50 ML 50 ML IV SCH (08:56)
[2018-12-29] MEDS: guaiFENesin 600 MG TABLET PO SCH ×2 (09:00→21:06)
--- NOTE | 2018-12-29 09:04 | PROVIDER PROGRESS NOTE ---
Subjective - Prog Note Date Prog Note Date: 12/29/18 Prog Note Time: 09:00 - Subjective Pt reports feeling: Improved (Imporoved SOB, nervousness noted, able to vocalized better with speaking in short sentences) Current Medications - Current Medications Current Medications: Active Medications Albuterol/Ipratropium (Duoneb) 3 ml INH Q4HR [facility] Last Admin: 12/29/18 07:24 Dose: 3 ml Atorvastatin Calcium (Lipitor) 20 mg PO QPM [facility] Last Admin: 12/28/18 21:50 Dose: 20 mg Budesonide (Pulmicort) 0.5 mg INH RTBID [facility] Last Admin: 12/29/18 07:24 Dose: 0.5 mg Buprenorphine (Buprenex) 0.3 mg IVP Q4H [facility] Last Admin: 12/29/18 06:06 Dose: Not Given Chlorhexidine Gluconate (Peridex) 15 ml PO BID [facility] Last Admin: 12/29/18 08:52 Dose: Not Given Diazepam (Valium) 2.5 mg PO BID [facility] Last Admin: 12/29/18 08:54 Dose: 2.5 mg Diltiazem HCl (Cardizem Inj) 10 mg IVP Q4HR PRN PRN Reason: HR>120, hold if SBP<100 Last Admin: 12/27/18 18:01 Dose: 10 mg Enoxaparin Sodium (Lovenox) 40 mg SUBQ DAILY [facility] Last Admin: 12/29/18 08:54 Dose: 40 mg Guaifenesin (Mucinex) 600 mg PO BID [facility] Last Admin: 12/29/18 09:00 Dose: 600 mg Famotidine (Pepcid 20 Mg/50 Ml) 50 mls @ 100 mls/hr IV DAILY [facility] Last Admin: 12/29/18 08:56 Dose: 100 mls/hr Ferric Sodium Gluconate Complex 125 mg/ Sodium Chloride 110 mls @ 100 mls/hr IV DAILY [facility] Stop: 12/29/18 12:29 Last Infusion: 12/28/18 13:01 Dose: Infused Cefepime HCl 2 gm/ Sodium (Chloride) 100 mls @ 200 mls/hr IV Q8HR [facility] Last Infusion: 12/29/18 06:55 Dose: Infused Insulin Aspart (Novolog) 2 - 10 unit SUBQ 0800,1200,1700,2100 [facility]; Protocol Last Admin: 12/29/18 08:51 Dose: Not Given Lorazepam (Ativan Inj (Vial)) 1 mg IVP Q2H PRN PRN Reason: Anxiety Last Admin: 12/27/18 19:40 Dose: 1 mg Methylprednisolone (Solu-Medrol (40mg Vial)) 60 mg IVP Q6HR [facility] Last Admin: 12/29/18 06:24 Dose: 60 mg Mineral Oil (Cavilon) 1 applic TOP Q4H PRN PRN Reason: Skin Care Last Admin: 12/26/18 19:35 Dose: 1 applic Montelukast Sodium (Singulair) 10 mg PO QPM [facility] Last Admin: 12/28/18 22:02 Dose: 10 mg Ondansetron HCl (Zofran Inj) 4 mg IVP Q6HR PRN PRN Reason: Nausea / Vomiting Last Admin: 12/27/18 11:08 Dose: 4 mg Ondansetron HCl (Zofran Odt) 4 mg TL Q6HR PRN PRN Reason: Nausea / Vomiting Polyethylene Glycol (Miralax) 17 gm PO DAILY [facility] Last Admin: 12/28/18 15:34 Dose: Not Given Senna (Senokot) 8.6 - 17.2 mg PO DAILY [facility] Sertraline HCl (Zoloft) 50 mg PO DAILY [facility] Last Admin: 12/28/18 09:38 Dose: 50 mg Sodium Chloride (Normal Saline Flush 0.9%) 10 ml IVP 0100,0900,1700 [facility] Last Admin: 12/29/18 03:30 Dose: 10 ml Sodium Chloride (Normal Saline Flush 0.9%) 10 ml IVP PRN PRN PRN Reason: NEEDED PER PROVIDER ORDERS Last Admin: 12/29/18 06:24 Dose: 10 ml Albuterol Sulfate [Proair Hfa Inhaler] 1 puffs INH Q6H PRN 08/31/16 Polyethylene Glycol 3350 [Miralax] 17 g PO DAILY 10/19/18 Albuterol 2.5 mg INH Q4H PRN 11/19/18 Atorvastatin Calcium 20 mg PO QPM 12/10/18 House Bowel Program 1 tab PO DAILY PRN 12/13/18 Insulin Lispro [Humalog Kwikpen U-100] 1 - 10 unit SQ ACHS MDD sliding scale 12/13/18 Morphine Sulfate [Morphine Sulf Oral (Roxanol)] 5 mg PO TID 12/13/18 Potassium Chloride [Klor-Con] 40 meq PO DAILYWM 12/26/18 Objective - Vital Signs/Intake & Output Reviewed Vital Signs: Yes Vital Signs: Vital Signs x48h Temp Pulse Pulse Resp BP Pulse Ox 12/29/18 07:30 102 H 18 12/29/18 07:00 88 17 136/64 H 93 12/29/18 06:00 91 10 L 122/60 91 L 12/29/18 05:00 86 10 L 127/60 92 12/29/18 04:00 36.7 C 87 9 L 119/62 91 L 12/29/18 03:00 89 17 115/61 94 12/29/18 02:00 93 15 124/56 L 93 Intake & Output: Intake & Output 12/26/18 12/27/18 12/28/18 12/29/18 23:59 23:59 23:59 23:59 Intake Total 1750 1090.00 1105 400 Output Total 200 500 550 810 Balance 1550 590.00 555 -410 - Objective General Appearance: positive: Alert, Mild distress, Anxious Eyes Bilateral: positive: Normal inspection, PERRL, EOMI, Conjunctivae nml ENT: positive: Pharynx nml, No signs of dehydration Neck: positive: Nml inspection, Thyroid nml, No JVD. negative: Thyromegaly, Carotid bruit Respiratory: positive: Chest non-tender, No respiratory distress, Wheezes (scattered faint to RL base), Rhonchi Cardiovascular: positive: Regular rate & rhythm, No murmur, No gallop, Tachycardia. negative: JVD present, Systolic murmur, Diastolic murmur Peripheral Pulses: 2+ Dorsalis pedis (R), 2+ Dorsalis pedis (L) Abdomen: positive: Non-tender, No organomegaly, Nml bowel sounds, No distention. negative: Tenderness, Hepatomegaly, Splenomegaly Back: positive: Nml inspection Skin: positive: Color nml, No rash, Warm. negative: Pallor Extremities: positive: Non-tender, Full ROM, Nml appearance. negative: Pedal edema Neurologic/Psychiatric: positive: Oriented x3, CN's nml (2-12) - Lab Results Fish Bones: 12/29/18 05:22 12/29/18 05:22 Other Labs: Lab Results x24hrs 12/29/18 12/29/18 12/29/18 Range/Units 05:32 05:22 05:22 WBC 10.2 (4.8-10.8) x10^3/uL RBC 3.23 L (4.20-5.40) 10^6/uL Hgb 9.2 L (12.0-16.0) g/dL Hct 28.8 L (37.0-47.0) % MCV 89.2 (81.0-99.0) fL MCH 28.4 (27.0-31.0) pg MCHC 31.9 L (32.0-36.0) g/dL RDW 16.6 H (12.0-15.0) % Plt Count 301 (130-450) 10^3/uL MPV 6.7 L (7.9-10.8) fL Neut # (Auto) 9.6 H (1.5-6.6) 10^3/uL Lymph # (Auto) 0.4 L (1.5-3.5) 10^3/uL [place] # (Auto) 0.2 (0.0-1.0) 10^3/uL Eos # (Auto) 0.0 (0.0-0.7) 10^3/uL Baso # (Auto) 0.0 (0.0-0.1) 10^3/uL Absolute Nucleated RBC 0.02 x10^3/uL Nucleated RBC % 0.2 /100WBC VBG pH 7.371 (7.31-7.41) Ionized Calcium 1.15 (1.15-1.33) mmol/L Sodium 134 L (135-145) mmol/L Potassium 5.2 H (3.5-5.0) mmol/L Chloride 98 L (101-111) mmol/L Carbon Dioxide 31 (21-32) mmol/L Anion Gap 5.0 L (6-13) BUN 30 H (6-20) mg/dL Creatinine 0.5 (0.4-1.0) mg/dL Estimated GFR (MDRD) 123 (>89) Glucose 155 H (70-100) mg/dL Calcium 8.8 (8.5-10.3) mg/dL Phosphorus 3.8 (2.5-4.6) mg/dL Magnesium 2.5 (1.7-2.8) mg/dL Albumin 3.0 L (3.2-5.5) g/dL 12/28/18 12/28/18 Range/Units 09:34 09:34 WBC 10.4 (4.8-10.8) x10^3/uL RBC 3.10 L (4.20-5.40) 10^6/uL Hgb 8.9 L (12.0-16.0) g/dL Hct 26.7 L (37.0-47.0) % MCV 86.0 (81.0-99.0) fL MCH 28.7 (27.0-31.0) pg MCHC 33.3 (32.0-36.0) g/dL RDW 16.2 H (12.0-15.0) % Plt Count 288 (130-450) 10^3/uL MPV 6.5 L (7.9-10.8) fL Neut # (Auto) 9.8 H (1.5-6.6) 10^3/uL Lymph # (Auto) 0.4 L (1.5-3.5) 10^3/uL [place] # (Auto) 0.2 (0.0-1.0) 10^3/uL Eos # (Auto) 0.0 (0.0-0.7) 10^3/uL Baso # (Auto) 0.0 (0.0-0.1) 10^3/uL Absolute Nucleated RBC 0.01 x10^3/uL Nucleated RBC % 0.1 /100WBC VBG pH (7.31-7.41) Ionized Calcium (1.15-1.33) mmol/L Sodium 134 L (135-145) mmol/L Potassium 5.1 H (3.5-5.0) mmol/L Chloride 96 L (101-111) mmol/L Carbon Dioxide 30 (21-32) mmol/L Anion Gap 8.0 (6-13) BUN 23 H (6-20) mg/dL Creatinine 0.5 (0.4-1.0) mg/dL Estimated GFR (MDRD) 123 (>89) Glucose 158 H (70-100) mg/dL Calcium 8.5 (8.5-10.3) mg/dL Phosphorus 3.6 (2.5-4.6) mg/dL Magnesium (1.7-2.8) mg/dL Albumin 2.8 L (3.2-5.5) g/dL ABX Reporting Has patient been on IV antibiotics over the past 48 hours?: Yes Sepsis Event Note (H) - Evaluation Current Stage of Sepsis: Ruled out (steroid induced leukocytosis, lactic acid osis related to V/Q mismatching, VS, tachycardia, tachypnea R/T to opiate withdrawals and or theophylline administration) Assessment/Plan - Problem List (1) HCAP (healthcare-associated pneumonia) Impression: Slowly improving. MDR Enterobacter cloacae with sensitivity to cephalopsporins. Continue with IV cefepime flu neg, 3+ yeast growth also seen, Would continue with aggressive pulm toilet, CPT initiated and tolerating well, nebs, singulair, incentive gus; with med mgmt for PF/COPD mgmt. (2) Acute on chronic respiratory failure with hypoxia and hypercapnia Impression: Patient was able to be off Bipap for >12 hrs, now on oximizer tolerating well. Continue with current RT mgmt. Would attempt to bring over her trilogy machine and use while here but she has been somewhat nocompliant on this. Less HD instability seen with the addition of low dose diazepam and discontinuation of theophylline as well as scheduled buprenorphine. Patient with pre-existing end- stage COPD with PF and unlikely the spiculated RUL nodule which does not appear to have a "post-obstructive" process. Cont with current RT nebs, inh steroid mgmt, CPT initiated and tolerating well, IV steroids to titrate down, CPT started, pulm toilet, incentive gsu, singulair. Continue with empirically with IV abx as delineated for HCAP and COPD exacerbation with sputum production. (3) End stage COPD Impression: Continue with current RT recs for oximizer as tolerated and with intermittent Bipap use, will attempt to use own TRILOGY machine here. Palliative following, still wants to be full code. Patient with monthly admits approximately with recurrent COPD exacerbations. Has associated pulmonary fibrosis, with pulm htn, optimize medical mgmt. Palliative care: Goals of care addressed and will remain a full code until she has more in depth conversation with palliative care service. 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 Re-demonstrated 11 mm nodule to RUL. Patient has been seen as outpatient oncology and with known "spiculated" RUL nodule which may be malignant. Unclear if this was biopsied or with serial CT scans indicated. (5) Advanced care planning/counseling discussion Impression: Patient with end-stage copd/PF who his steroid and o2 dependent with multiple admissions who p/w acute on chronic hypoxemic/hypercapneic RF. I discussed her severity of illness and in the event of an intubation she likely would not be able to be extubated and will need a tracheostomy. Patient wanted think about her code status at a later time but remains FULL code despite her poor long-term prognosis related to her condition. I had conveyed to her the trajectory of illness and will re-engage palliative care services to go over her goals of care, symptom mgmt and perhaps general counselor and educate patient on her illness severity and prognosis as it relates to her anxiety and provider burden which are both evident on these past admissions. (6) Iron deficiency anemia Impression: Would continue with IV iron for 3 days and switch to oral iron supplementation. Qualifiers: Iron deficiency anemia type: unspecified iron deficiency Qualified Code(s): D50.9 - Iron deficiency anemia, unspecified (7) Urinary retention Impression: Patient had elevated PVR and was having increased urinary retention for which she is now on a [place] catheter. Would place on flomax and attempt to remove this since it may precipitate a UTI.
[2018-12-29] MEDS: SERTRALINE 50 MG TABLET PO SCH (09:08)
[2018-12-29] MEDS: SENNA 8.6 MG TABLET PO SCH (09:09)
[2018-12-29] MEDS: FERRIC GLUCONATE 125 MG in SODIUM CHLORIDE 0.9% 100ML 100 ML IV SCH (10:44)
[2018-12-29] MEDS: TAMSULOSIN 0.4 MG CAPSULE PO SCH (12:08)
[2018-12-29] MEDS: POLYETHYLENE GLYCOL 3350 17 GM PACKET PO SCH (12:14)
[2018-12-29 15:51] LABS: MYCOPLASMA PNEUMONIAE IGG < or = 0.90; MYCOPLASMA PNEUMONIAE IGM 167 U/mL
[2018-12-29] MEDS ORDERED: methylPREDNISolone SUCCINATE 40 MG/ML VIAL IVP SCH (21:00)
[2018-12-29] MEDS: MONTELUKAST 10 MG TABLET PO SCH (21:06)
[2018-12-29] MEDS: ATORVASTATIN 10 MG TABLET PO SCH (21:06)
[2018-12-30] MEDS: CEFEPIME 2 GM in SODIUM CHLORIDE 0.9% MINIBAG 100 ML IV SCH ×2 (00:41→06:05)
[2018-12-30] MEDS: CHLORHEXIDINE GLUCONATE 15 ML UDC PO SCH ×3 (00:45→21:04)
[2018-12-30] MEDS: BUPRENORPHINE 0.3 MG/ML VIAL IVP SCH ×4 (03:11→17:27)
[2018-12-30] MEDS: SODIUM CHLORIDE FLUSH 0.9% 10 ML SYRINGE IVP SCH ×3 (04:07→17:27)
[2018-12-30] MEDS: IPRATROPIUM/ALBUTEROL 3 ML NEB INH SCH ×6 (04:07→20:11)
[2018-12-30 05:58] LABS: ALBUMIN 3.2 g/dL (3.2-5.5); CALCIUM 8.9 mg/dL (8.5-10.3); CREATININE 0.5 mg/dL (0.4-1.0); PHOSPHORUS 3.7 mg/dL (2.5-4.6)
[2018-12-30 06:16] LABS: BASOPHILS % (AUTO) 0.4 %; EOSINOPHILS % (AUTO) 0.1 %; HGB - HEMOGLOBIN 9.5 g/dL (12.0-16.0); LYMPHOCYTES # (AUTO) 0.7 10^3/uL (1.5-3.5); LYMPHOCYTES % (AUTO) 7.2 %; MEAN CORPUSCULAR HEMOGLOBIN 28.7 pg (27.0-31.0); MEAN CORPUSCULAR HGB CONC 32.1 g/dL (32.0-36.0); MEAN CORPUSCULAR VOLUME 89.5 fL (81.0-99.0); MEAN PLATELET VOLUME 6.7 fL (7.9-10.8); MONOCYTES # (AUTO) 0.4 10^3/uL (0.0-1.0); MONOCYTES % (AUTO) 4.2 %; NEUTROPHILS # (AUTO) 8.5 10^3/uL (1.5-6.6); NEUTROPHILS % (AUTO) 88.1 %; PLT - PLATELET COUNT 314 10^3/uL (130-450); RED BLOOD COUNT 3.32 10^6/uL (4.20-5.40); RED CELL DISTRIBUTION WIDTH 16.7 % (12.0-15.0); WHITE BLOOD COUNT 9.6 x10^3/uL (4.8-10.8)
[2018-12-30] MEDS: BUDESONIDE 0.5 MG/2 ML NEB INH SCH ×2 (07:02→20:11)
[2018-12-30] MEDS: INSULIN ASPART 300 UNIT/3 ML PEN SUBQ SCH ×4 (08:40→20:59)
[2018-12-30] MEDS: guaiFENesin 600 MG TABLET PO SCH ×2 (08:40→21:04)
[2018-12-30] MEDS: SERTRALINE 50 MG TABLET PO SCH (08:40)
[2018-12-30] MEDS: predniSONE 20 MG TABLET PO SCH (08:40)
[2018-12-30] MEDS: diazePAM 5 MG TABLET PO SCH (08:41)
[2018-12-30] MEDS: SENNA 8.6 MG TABLET PO SCH (08:41)
[2018-12-30] MEDS: TAMSULOSIN 0.4 MG CAPSULE PO SCH (08:41)
[2018-12-30] MEDS: POLYETHYLENE GLYCOL 3350 17 GM PACKET PO SCH (08:42)
[2018-12-30] MEDS: ENOXAPARIN 40 MG/0.4 ML SYRINGE SUBQ SCH (08:42)
[2018-12-30] MEDS: diltiaZEM INJ 5 MG/ML VIAL IVP PRN (10:02)
[2018-12-30] MEDS: SODIUM CHLORIDE FLUSH 0.9% 10 ML SYRINGE IVP PRN ×2 (10:03→22:03)
[2018-12-30 11:32] LABS: ABG PCO2 51 mmHg (34-45); ABG PH 7.41 (7.35-7.45); ABG PO2 68 mmHg (80-100)
[2018-12-30 11:33] LABS: ABG BASE EXCESS 6.4 mmol/L (-2.0-3.0); ABG OXYGEN SATURATION 94 % (94-98); ABG TCO2 33.5 MMOL/L (21.0-29.0); ALLEN TEST POSITIVE
--- NOTE | 2018-12-30 11:52 | PROVIDER PROGRESS NOTE ---
Subjective - Prog Note Date Prog Note Date: 12/30/18 Prog Note Time: 12:00 - Subjective Pt reports feeling: Improved (Lethargic and requiring overnight Bipap.) Current Medications - Current Medications Current Medications: Active Medications Albuterol/Ipratropium (Duoneb) 3 ml INH Q4HR [facility] Last Admin: 12/30/18 07:01 Dose: 3 ml Atorvastatin Calcium (Lipitor) 20 mg PO QPM [facility] Last Admin: 12/29/18 21:06 Dose: 20 mg Budesonide (Pulmicort) 0.5 mg INH RTBID [facility] Last Admin: 12/30/18 07:02 Dose: 0.5 mg Buprenorphine (Buprenex) 0.3 mg IVP Q4H [facility] Last Admin: 12/30/18 10:05 Dose: 0.3 mg Chlorhexidine Gluconate (Peridex) 15 ml PO BID [facility] Last Admin: 12/30/18 09:29 Dose: Not Given Diazepam (Valium) 2.5 mg PO BID [facility] Last Admin: 12/30/18 08:41 Dose: 2.5 mg Diltiazem HCl (Cardizem Inj) 10 mg IVP Q4HR PRN PRN Reason: HR>120, hold if SBP<100 Last Admin: 12/30/18 10:02 Dose: 10 mg Enoxaparin Sodium (Lovenox) 40 mg SUBQ DAILY [facility] Last Admin: 12/30/18 08:42 Dose: 40 mg Furosemide (Lasix) 40 mg PO DAILY [facility] Guaifenesin (Mucinex) 600 mg PO BID [facility] Last Admin: 12/30/18 08:40 Dose: 600 mg Insulin Aspart (Novolog) 2 - 10 unit SUBQ 0800,1200,1700,2100 [facility]; Protocol Last Admin: 12/30/18 08:40 Dose: Not Given Lorazepam (Ativan Inj (Vial)) 1 mg IVP Q2H PRN PRN Reason: Anxiety Last Admin: 12/27/18 19:40 Dose: 1 mg Mineral Oil (Cavilon) 1 applic TOP Q4H PRN PRN Reason: Skin Care Last Admin: 12/26/18 19:35 Dose: 1 applic Montelukast Sodium (Singulair) 10 mg PO QPM [facility] Last Admin: 12/29/18 21:06 Dose: 10 mg Ondansetron HCl (Zofran Inj) 4 mg IVP Q6HR PRN PRN Reason: Nausea / Vomiting Last Admin: 12/27/18 11:08 Dose: 4 mg Ondansetron HCl (Zofran Odt) 4 mg TL Q6HR PRN PRN Reason: Nausea / Vomiting Polyethylene Glycol (Miralax) 17 gm PO DAILY [facility] Last Admin: 12/30/18 08:42 Dose: 17 gm Prednisone (Deltasone) 60 mg PO DAILYWM [facility] Last Admin: 12/30/18 08:40 Dose: 60 mg Senna (Senokot) 8.6 - 17.2 mg PO DAILY [facility] Last Admin: 12/30/18 08:41 Dose: 17.2 mg Sertraline HCl (Zoloft) 50 mg PO DAILY [facility] Last Admin: 12/30/18 08:40 Dose: 50 mg Sodium Chloride (Normal Saline Flush 0.9%) 10 ml IVP 0100,0900,1700 [facility] Last Admin: 12/30/18 08:42 Dose: 10 ml Sodium Chloride (Normal Saline Flush 0.9%) 10 ml IVP PRN PRN PRN Reason: NEEDED PER PROVIDER ORDERS Last Admin: 12/30/18 10:03 Dose: 10 ml Tamsulosin HCl (Flomax) 0.4 mg PO DAILY [facility] Last Admin: 12/30/18 08:41 Dose: 0.4 mg Trimethoprim/Sulfamethoxazole (Bactrim Ds 800/160) 1 tab PO BID [facility] Albuterol Sulfate [Proair Hfa Inhaler] 1 puffs INH Q6H PRN 08/31/16 Polyethylene Glycol 3350 [Miralax] 17 g PO DAILY 10/19/18 Albuterol 2.5 mg INH Q4H PRN 11/19/18 Atorvastatin Calcium 20 mg PO QPM 12/10/18 House Bowel Program 1 tab PO DAILY PRN 12/13/18 Insulin Lispro [Humalog Kwikpen U-100] 1 - 10 unit SQ ACHS MDD sliding scale 12/13/18 Morphine Sulfate [Morphine Sulf Oral (Roxanol)] 5 mg PO TID 12/13/18 Potassium Chloride [Klor-Con] 40 meq PO DAILYWM 12/26/18 Objective - Vital Signs/Intake & Output Reviewed Vital Signs: Yes Vital Signs: Vital Signs x48h Temp Pulse Pulse Resp BP BP Pulse Ox 12/30/18 11:41 37.5 C 12/30/18 11:00 102 H 9 L 120/62 96 12/30/18 10:45 102 H 128/60 12/30/18 10:30 105 H 122/60 12/30/18 10:25 106/55 L 12/30/18 10:20 104 H 130/63 12/30/18 10:15 102 H 119/74 12/30/18 10:10 102 H 127/67 12/30/18 10:05 107 H 140/58 H 12/30/18 10:02 153/64 H 12/30/18 10:00 121 H 19 153/64 H 95 12/30/18 09:00 117 H 16 137/67 H 94 12/30/18 08:00 105 H 9 L 122/51 L 95 12/30/18 07:32 15 93 12/30/18 07:21 37.2 C 101 H 19 96 12/30/18 07:17 101 H 19 12/30/18 07:06 37.2 C 94 10 L 130/57 L 98 12/30/18 06:00 98 16 143/67 H 96 12/30/18 05:00 96 12 142/56 H 96 12/30/18 03:59 36.8 C 89 12 148/61 H 97 Intake & Output: Intake & Output 12/27/18 12/28/18 12/29/18 12/30/18 23:59 23:59 23:59 23:59 Intake Total 1090.00 1105 790 700 Output Total 546 425 8406 470 Balance 590.00 555 -500 230 - Objective General Appearance: positive: No acute distress, Alert (arousable), Lethargic Eyes Bilateral: positive: PERRL, EOMI ENT: positive: Pharynx nml Neck: positive: Nml inspection, No JVD, Trachea midline Respiratory: positive: Chest non-tender, No respiratory distress, Rhonchi. negative: Wheezes, Rales Cardiovascular: positive: Regular rate & rhythm, No murmur, No gallop. negative: Irregularly irregular, JVD present Peripheral Pulses: 2+ Dorsalis pedis (R), 2+ Dorsalis pedis (L) Abdomen: positive: Non-tender, No organomegaly, Nml bowel sounds. negative: No distention, Tenderness Skin: positive: Color nml, No rash, Warm Extremities: positive: Non-tender, Full ROM, Nml appearance, Pedal edema. negative: Calf tenderness Neurologic/Psychiatric: positive: CN's nml (2-12), Weakness, Depressed mood/a ffect - Lab Results Fish Bones: 12/30/18 05:15 12/30/18 05:15 Other Labs: Lab Results x24hrs 12/30/18 12/30/18 12/30/18 Range/Units 11:14 05:15 05:15 WBC 9.6 (4.8-10.8) x10^3/uL RBC 3.32 L (4.20-5.40) 10^6/uL Hgb 9.5 L (12.0-16.0) g/dL Hct 29.7 L (37.0-47.0) % MCV 89.5 (81.0-99.0) fL MCH 28.7 (27.0-31.0) pg MCHC 32.1 (32.0-36.0) g/dL RDW 16.7 H (12.0-15.0) % Plt Count 314 (130-450) 10^3/uL MPV 6.7 L (7.9-10.8) fL Neut # (Auto) 8.5 H (1.5-6.6) 10^3/uL Lymph # (Auto) 0.7 L (1.5-3.5) 10^3/uL Henderson # (Auto) 0.4 (0.0-1.0) 10^3/uL Eos # (Auto) 0.0 (0.0-0.7) 10^3/uL Baso # (Auto) 0.0 (0.0-0.1) 10^3/uL Absolute Nucleated RBC 0.10 x10^3/uL Nucleated RBC % 1.0 /100WBC Bld Gas Analysis Time 1129 Sample Site RIGHT RADIAL ABG pH 7.41 (7.35-7.45) ABG pCO2 51 H (34-45) mmHg ABG pO2 68 L (80-100) mmHg ABG HCO3 32.0 H (22.0-26.0) mmol/L ABG Total CO2 33.5 H (21.0-29.0) MMOL/L ABG O2 Saturation 94 (94-98) % ABG Base Excess 6.4 H (-2.0-3.0) mmol/L Heriberto Test POSITIVE O2 Delivery Device HOME TRILOGY O2 Liters/Min 4.50 LPM Sodium 136 (135-145) mmol/L Potassium 5.1 H (3.5-5.0) mmol/L Chloride 98 L (101-111) mmol/L Carbon Dioxide 31 (21-32) mmol/L Anion Gap 7.0 (6-13) BUN 36 H (6-20) mg/dL Creatinine 0.5 (0.4-1.0) mg/dL Estimated GFR (MDRD) 123 (>89) Glucose 135 H (70-100) mg/dL Calcium 8.9 (8.5-10.3) mg/dL Phosphorus 3.7 (2.5-4.6) mg/dL Albumin 3.2 (3.2-5.5) g/dL Mycoplasma pneumon IgG Mycoplasma pneumon IgM U/mL 12/26/18 Range/Units 13:34 WBC (4.8-10.8) x10^3/uL RBC (4.20-5.40) 10^6/uL Hgb (12.0-16.0) g/dL Hct (37.0-47.0) % MCV (81.0-99.0) fL MCH (27.0-31.0) pg MCHC (32.0-36.0) g/dL RDW (12.0-15.0) % Plt Count (130-450) 10^3/uL MPV (7.9-10.8) fL Neut # (Auto) (1.5-6.6) 10^3/uL Lymph # (Auto) (1.5-3.5) 10^3/uL Henderson # (Auto) (0.0-1.0) 10^3/uL Eos # (Auto) (0.0-0.7) 10^3/uL Baso # (Auto) (0.0-0.1) 10^3/uL Absolute Nucleated RBC x10^3/uL Nucleated RBC % /100WBC Bld Gas Analysis Time Sample Site ABG pH (7.35-7.45) ABG pCO2 (34-45) mmHg ABG pO2 (80-100) mmHg ABG HCO3 (22.0-26.0) mmol/L ABG Total CO2 (21.0-29.0) MMOL/L ABG O2 Saturation (94-98) % ABG Base Excess (-2.0-3.0) mmol/L Heriberto Test O2 Delivery Device O2 Liters/Min LPM Sodium (135-145) mmol/L Potassium (3.5-5.0) mmol/L Chloride (101-111) mmol/L Carbon Dioxide (21-32) mmol/L Anion Gap (6-13) BUN (6-20) mg/dL Creatinine (0.4-1.0) mg/dL Estimated GFR (MDRD) (>89) Glucose (70-100) mg/dL Calcium (8.5-10.3) mg/dL Phosphorus (2.5-4.6) mg/dL Albumin (3.2-5.5) g/dL Mycoplasma pneumon IgG < or = 0.90 Mycoplasma pneumon IgM 167 U/mL ABX Reporting Has patient been on IV antibiotics over the past 48 hours?: Yes Sepsis Event Note (H) - Evaluation Current Stage of Sepsis: Ruled out (steroid induced leukocytosis, lactic acidos is related to V/Q mismatching, VS, tachycardia, tachypnea R/T to opiate withdrawals and or theophylline administration) Assessment/Plan - Problem List (1) HCAP (healthcare-associated pneumonia) Impression: Slowly improving. MDR Enterobacter cloacae with sensitivity to cephalopsporins. De-escalate to Bactrim DS to continue for 6 more days. Labs showed flu neg, 3+ yeast growth also seen, Would continue with aggressive pulm toilet, Continue with CPT which appears she is tolerating well, nebs, singulair, incentive gus; with med mgmt for PF/COPD mgmt. (2) Acute on chronic respiratory failure with hypoxia and hypercapnia Impression: Blood gases today show a Ph 7.4, pc02 51.1, po2 67.5, bicarb 32 @4-5 liters home trilogy with mask. Patient was on bipap overnight and tolerating oximizer. However, now she is on Home Trilogy machine and tolerating it well. Continue with current RT mgmt. Patient with pre-existing end-stage COPD with PF and unlikely the spiculated RUL nodule which does not appear to have a "post-obstructive" process. Cont with current RT nebs, inh steroid mgmt, CPT initiated and tolerating well, IV steroids to titrate down, continue CPT, pulm toilet, incentive gus, singulair. Continue with empirically with IV abx as delineated for HCAP and COPD ex acerbation with sputum production. (3) End stage COPD Impression: Likely will have a prolonged treatment duration over the next week, may have disposition back to [facility]. Continue with current RT recs for Home Trilogy machine with intermittent Bipap. Palliative following, still wants to be full code. Patient with monthly admits approximately with recurrent COPD exacerbations. Has associated pulmonary fibrosis, with pulm htn, optimize medical mgmt. Palliative care: Goals of care addressed and will remain a full code until she has more in depth conversation with palliative care service. 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 Re-demonstrated 11 mm nodule to RUL. Patient has been seen as outpatient oncology and with known "spiculated" RUL nodule which may be malignant. Unclear if this was biopsied or with serial CT scans indicated. (5) Urinary retention Impression: Continue with Bush catheter may need to be discharged with FC to [facility]. Would attempt voiding trial. Continue with flomax and attempt to remove this since it may precipitate a UTI. (6) Contractures involving both knees Impression: Patient with impaired mobility and chronic contractures of BL knees and hips per PT which will need medical treatment with continued PT and ROM as well with the addition of baclofen. Patient also found to have essential tremors. Patient was previously ambulating only 10 ft at home and nursing did not want PT to get her up but likely will require PT at [facility] once discharged.
[2018-12-30] MEDS: FUROSEMIDE 40 MG TABLET PO SCH (12:09)
[2018-12-30] MEDS ORDERED: BUPRENORPHINE 0.3 MG/ML VIAL IVP SCH (14:00)
[2018-12-30] MEDS: BACLOFEN 10 MG TABLET PO SCH ×2 (14:29→21:05)
[2018-12-30] MEDS: MONTELUKAST 10 MG TABLET PO SCH (21:04)
[2018-12-30] MEDS: ATORVASTATIN 10 MG TABLET PO SCH (21:04)
[2018-12-30] MEDS: SULFAMETH/TRIMETH DS 800/160 MG TABLET PO SCH (21:05)
[2018-12-30] MEDS: LORazepam 2 MG/ML VIAL IVP PRN (22:03)
[2018-12-31] MEDS: SODIUM CHLORIDE FLUSH 0.9% 10 ML SYRINGE IVP SCH ×3 (00:15→15:49)
[2018-12-31] MEDS: BUPRENORPHINE 0.3 MG/ML VIAL IVP SCH (02:53)
[2018-12-31] MEDS: BACLOFEN 10 MG TABLET PO SCH (06:09)
[2018-12-31] MEDS: IPRATROPIUM/ALBUTEROL 3 ML NEB INH SCH ×5 (06:21→20:10)
[2018-12-31] MEDS: BUDESONIDE 0.5 MG/2 ML NEB INH SCH ×2 (08:02→20:11)
[2018-12-31] MEDS: INSULIN ASPART 300 UNIT/3 ML PEN SUBQ SCH ×4 (08:27→20:46)
[2018-12-31] MEDS: ENOXAPARIN 40 MG/0.4 ML SYRINGE SUBQ SCH (08:35)
[2018-12-31] MEDS: CHLORHEXIDINE GLUCONATE 15 ML UDC PO SCH ×2 (08:36→20:48)
[2018-12-31 08:40] LABS: CREATININE 0.5 mg/dL (0.4-1.0)
[2018-12-31] MEDS ORDERED: BUPRENORPHINE 0.3 MG/ML VIAL IVP PRN (08:56)
[2018-12-31] MEDS ORDERED: BACLOFEN 10 MG TABLET PO PRN (08:56)
[2018-12-31 09:00] LABS: ABG BASE EXCESS 8.3 mmol/L (-2.0-3.0); ABG HCO3 35.3 mmol/L (22.0-26.0); ABG OXYGEN SATURATION 90 % (94-98); ABG PH 7.37 (7.35-7.45); ABG PO2 63 mmHg (80-100); ABG TCO2 37.2 MMOL/L (21.0-29.0); ALLEN TEST POSITIVE
[2018-12-31] MEDS: MIN OIL/DIMETHICON/COCONUT OIL 92 GM TUBE TOP PRN (09:00)
[2018-12-31] MEDS: FUROSEMIDE 40 MG TABLET PO SCH (09:02)
[2018-12-31 09:03] LABS: ABG PCO2 63 mmHg (34-45)
[2018-12-31] MEDS: SULFAMETH/TRIMETH DS 800/160 MG TABLET PO SCH ×2 (09:04→20:48)
[2018-12-31 09:06] LABS: ALBUMIN 2.9 g/dL (3.2-5.5); CALCIUM 8.8 mg/dL (8.5-10.3); PHOSPHORUS 3.8 mg/dL (2.5-4.6)
[2018-12-31] MEDS: predniSONE 20 MG TABLET PO SCH (09:25)
[2018-12-31] MEDS: guaiFENesin 600 MG TABLET PO SCH ×2 (09:25→20:48)
[2018-12-31] MEDS: TAMSULOSIN 0.4 MG CAPSULE PO SCH (10:12)
[2018-12-31] MEDS: SERTRALINE 50 MG TABLET PO SCH (10:19)
[2018-12-31] MEDS: SENNA 8.6 MG TABLET PO SCH ×4 (10:25→20:47)
[2018-12-31] MEDS: POLYETHYLENE GLYCOL 3350 17 GM PACKET PO SCH (10:26)
[2018-12-31] MEDS: SODIUM CHLORIDE 0.9% 1,000 ML IV SCH ×2 (15:08→23:37)
[2018-12-31] MEDS: acetaZOLAMIDE 250 MG TABLET PO SCH (15:27)
[2018-12-31] MEDS: CHERRY SYRUP 10 ML UDC PO SCH (15:38)
--- NOTE | 2018-12-31 15:57 | PROVIDER PROGRESS NOTE ---
Subjective - Prog Note Date Prog Note Date: 12/31/18 Prog Note Time: 15:56 - Subjective Pt reports feeling: Worse (lethargic with drug-induced somnolence) Current Medications - Current Medications Current Medications: Active Medications Acetazolamide (Diamox) 250 mg PO BID [facility] Last Admin: 12/31/18 15:27 Dose: 250 mg Albuterol/Ipratropium (Duoneb) 3 ml INH Q4HR [facility] Last Admin: 12/31/18 12:55 Dose: 3 ml Atorvastatin Calcium (Lipitor) 20 mg PO QPM [facility] Last Admin: 12/30/18 21:04 Dose: 20 mg Baclofen (Lioresal) 5 mg PO TID PRN PRN Reason: Muscle spasms and contractures Budesonide (Pulmicort) 0.5 mg INH RTBID [facility] Last Admin: 12/31/18 08:02 Dose: 0.5 mg Buprenorphine (Buprenex) 0.3 mg IVP Q8H PRN PRN Reason: PAIN Hernandez Syrup () 10 ml PO BID [facility] Last Admin: 12/31/18 15:38 Dose: 10 ml Chlorhexidine Gluconate (Peridex) 15 ml PO BID [facility] Last Admin: 12/31/18 08:36 Dose: 15 ml Diazepam (Valium) 2.5 mg PO BID PRN PRN Reason: Anxiety Diltiazem HCl (Cardizem Inj) 10 mg IVP Q4HR PRN PRN Reason: HR>120, hold if SBP<100 Last Admin: 12/30/18 10:02 Dose: 10 mg Enoxaparin Sodium (Lovenox) 40 mg SUBQ DAILY [facility] Last Admin: 12/31/18 08:35 Dose: 40 mg Furosemide (Lasix) 40 mg PO DAILY [facility] Last Admin: 12/31/18 09:02 Dose: 40 mg Guaifenesin (Mucinex) 600 mg PO BID [facility] Last Admin: 12/31/18 09:25 Dose: Not Given Sodium Chloride (Normal Saline 0.9%) 1,000 mls @ 100 mls/hr IV .Q10H [facility] Last Admin: 12/31/18 15:08 Dose: 100 mls/hr Insulin Aspart (Novolog) 2 - 10 unit SUBQ 0800,1200,1700,2100 [facility]; Protocol Last Admin: 12/31/18 12:58 Dose: Not Given Lorazepam (Ativan Inj (Vial)) 1 mg IVP Q2H PRN PRN Reason: Anxiety Last Admin: 12/30/18 22:03 Dose: 1 mg Mineral Oil (Cavilon) 1 applic TOP Q4H PRN PRN Reason: Skin Care Last Admin: 12/31/18 09:00 Dose: 1 applic Montelukast Sodium (Singulair) 10 mg PO QPM [facility] Last Admin: 12/30/18 21:04 Dose: 10 mg Ondansetron HCl (Zofran Inj) 4 mg IVP Q6HR PRN PRN Reason: Nausea / Vomiting Last Admin: 12/27/18 11:08 Dose: 4 mg Ondansetron HCl (Zofran Odt) 4 mg TL Q6HR PRN PRN Reason: Nausea / Vomiting Polyethylene Glycol (Miralax) 17 gm PO DAILY [facility] Last Admin: 12/31/18 10:26 Dose: 17 gm Prednisone (Deltasone) 60 mg PO DAILYWM [facility] Last Admin: 12/31/18 09:25 Dose: 60 mg Senna (Senokot) 8.6 - 17.2 mg PO DAILY [facility] Last Admin: 12/31/18 10:26 Dose: Not Given Senna (Senokot) 17.2 - 25.8 mg PO Q6H [facility] Stop: 01/01/19 02:01 Last Admin: 12/31/18 15:38 Dose: 17.2 mg Sertraline HCl (Zoloft) 50 mg PO DAILY [facility] Last Admin: 12/31/18 10:19 Dose: 50 mg Sodium Chloride (Normal Saline Flush 0.9%) 10 ml IVP 0100,0900,1700 [facility] Last Admin: 12/31/18 15:49 Dose: 10 ml Sodium Chloride (Normal Saline Flush 0.9%) 10 ml IVP PRN PRN PRN Reason: NEEDED PER PROVIDER ORDERS Last Admin: 12/30/18 22:03 Dose: 10 ml Tamsulosin HCl (Flomax) 0.4 mg PO DAILY [facility] Last Admin: 12/31/18 10:12 Dose: 0.4 mg Trimethoprim/Sulfamethoxazole (Bactrim Ds 800/160) 1 tab PO BID [facility] Last Admin: 12/31/18 09:04 Dose: 1 tab Albuterol Sulfate [Proair Hfa Inhaler] 1 puffs INH Q6H PRN 08/31/16 Polyethylene Glycol 3350 [Miralax] 17 g PO DAILY 10/19/18 Albuterol 2.5 mg INH Q4H PRN 11/19/18 Atorvastatin Calcium 20 mg PO QPM 12/10/18 House Bowel Program 1 tab PO DAILY PRN 12/13/18 Insulin Lispro [Humalog Kwikpen U-100] 1 - 10 unit SQ ACHS MDD sliding scale 12/13/18 Morphine Sulfate [Morphine Sulf Oral (Roxanol)] 5 mg PO TID 12/13/18 Potassium Chloride [Klor-Con] 40 meq PO DAILYWM 12/26/18 Objective - Vital Signs/Intake & Output Reviewed Vital Signs: Yes Vital Signs: Vital Signs x48h Temp Pulse Pulse Resp BP Pulse Ox 12/31/18 15:00 113 H 17 108/50 L 90 L 12/31/18 14:00 37 C 100 23 113/53 L 94 12/31/18 13:00 115 H 14 125/69 92 12/31/18 12:55 112 H 18 12/31/18 12:00 36.6 C 105 H 15 129/59 L 94 12/31/18 11:00 96 18 126/57 L 94 12/31/18 10:00 93 12 127/56 L 98 12/31/18 09:00 37 C 107 H 23 139/68 H 93 12/31/18 08:00 37.1 C 92 91 12 136/58 H 98 Intake & Output: Intake & Output 12/28/18 12/29/18 12/30/18 12/31/18 23:59 23:59 23:59 23:59 Intake Total 6400 410 1903 300 Output Total 550 1290 1188 590 Balance 555 -500 787 -290 - Objective General Appearance: positive: No acute distress, Lethargic Eyes Bilateral: positive: Normal inspection, PERRL, EOMI, Conjunctivae nml ENT: positive: ENT inspection nml, Pharynx nml, No signs of dehydration Neck: positive: Nml inspection, Thyroid nml, No JVD. negative: Thyromegaly, Car otid bruit Respiratory: positive: Chest non-tender, No respiratory distress, Rhonchi Cardiovascular: positive: Regular rate & rhythm, No murmur, No gallop. negative: Irregularly irregular Peripheral Pulses: 2+ Dorsalis pedis (R), 2+ Dorsalis pedis (L) Abdomen: positive: Non-tender, No organomegaly, Nml bowel sounds, No distention. negative: Tenderness Skin: positive: Color nml, No rash, Warm Extremities: positive: Non-tender, Full ROM, Nml appearance Neurologic/Psychiatric: positive: Motor nml, Sensation nml, Disoriented to person, Disoriented to time, Depressed mood/affect - Lab Results Fish Bones: 12/30/18 05:15 12/31/18 04:55 Other Labs: Lab Results x24hrs 12/31/18 12/31/18 12/31/18 Range/Units 07:44 04:55 04:55 Bld Gas Analysis Time 0857 Sample Site RIGHT RADIAL ABG pH 7.37 (7.35-7.45) ABG pCO2 63 H* (34-45) mmHg ABG pO2 63 L (80-100) mmHg ABG HCO3 35.3 H (22.0-26.0) mmol/L ABG Total CO2 37.2 H (21.0-29.0) MMOL/L ABG O2 Saturation 90 L (94-98) % ABG Base Excess 8.3 H (-2.0-3.0) mmol/L Heriberto Test POSITIVE O2 Delivery Device OXYMIZER O2 Liters/Min 6.00 LPM Sodium 142 (135-145) mmol/L Potassium 4.2 Cancelled Chloride 102 (101-111) mmol/L Carbon Dioxide 33 H (21-32) mmol/L Anion Gap 7.0 (6-13) BUN 37 H (6-20) mg/dL Creatinine 0.5 (0.4-1.0) mg/dL Estimated GFR (MDRD) 123 (>89) Glucose 100 (70-100) mg/dL Calcium 8.8 Cancelled Phosphorus 3.8 Cancelled Magnesium 2.4 (1.7-2.8) mg/dL Albumin 2.9 L Cancelled ABX Reporting Has patient been on IV antibiotics over the past 48 hours?: No Sepsis Event Note (H) - Evaluation Current Stage of Sepsis: Ruled out (steroid induced leukocytosis, lactic acidosis related to V/Q mismatching, VS, tachycardia, tachypnea R/T to opiate withdrawals and or theophylline administration) Assessment/Plan - Problem List (1) Drug-induced encephalopathy Impression: Sec to receiving Ativan overnight as well as having scheduled Baclofen 10 mg PO TID which may have heavily sedated her in the absence of renal dysfunction should clear after IVF's and hold sedative agents. (2) HCAP (healthcare-associated pneumonia) Impression: Resolving. No increased oxygen requirements noted. Slowly improving. MDR Enterobacter cloacae with sensitivity to cephalopsporins. Continue with Bactrim DS to continue for 5 more days. Labs showed flu neg, 3+ yeast growth also seen, Would continue with aggressive pulm toilet, Continue with CPT which appears she is tolerating well, nebs, singulair, incentive gus; with med mgmt for PF/COPD mgmt. (3) Acute on chronic respiratory failure with hypoxia and hypercapnia Impression: Blood gases show increase in pc02 63. Ph 7.37, po2 63, bicarb 35.3. Has been tolerating her home trilogy with mask. Pattint currently on 6L oximizer. Drug- induced hypoventilation noted and would expect this to resolve soon. Patient with pre-existing end-stage COPD with PF and unlikely the spiculated RUL nodule which does not appear to have a "post-obstructive" process. Cont with current RT nebs, inh steroid mgmt, CPT initiated and tolerating well, IV steroids to titrate down, continue CPT, pulm toilet, incentive gus, singulair. Continue with empirically with IV abx as delineated for HCAP and COPD exacerbation with sputum production. (4) End stage COPD Impression: Likely will have a prolonged treatment duration over the next week, may have disposition back to [facility]. Continue with current RT recs for Home Trilogy machine with intermittent Bipap. Palliative following, still wants to be full code. Patient with monthly admits approximately with recurrent COPD exacerbations. Has associated pulmonary fibrosis, with pulm htn, optimize medical mgmt. Palliative care: Goals of care addressed and will remain a full code until she has more in depth conversation with palliative care service. 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 Re-demonstrated 11 mm nodule to RUL. Patient has been seen as outpatient oncology and with known "spiculated" RUL nodule which may be malignant. Unclear if this was biopsied or with serial CT scans indicated. (6) Urinary retention Impression: Continue with flomax to relax urethra and improve urinary stream in the setting of urinary retention. FC to discontinue for now. (7) Contractures involving both knees Impression: Patient with impaired mobility and chronic contractures of BL knees and hips per PT which will need medical treatment with continued PT and ROM, however got very sedated while on scheduled Baclofen 10 mg po tid, which was held. Patient also found to have essential tremors. Patient was previously ambulating only 10 ft at home and nursing did not want PT to get her up but likely will require PT at [place] [facility] once discharged. (8) CO2 narcosis Impression: Duet to hypoventilation sec to sedative effects of baclofen, ativan given, holding benzos and buprenorphine for now. ABG reflects worsening in her pc02, on trilogy now and tolerating oximizer, would increase bicarb excretion with crushed po diamox 250 mg po bid. Repeat ABG in am, hopefully her gases may im prove with IVF's and washing out sedative agents.
[2018-12-31] MEDS: ATORVASTATIN 10 MG TABLET PO SCH (20:47)
[2018-12-31] MEDS: MONTELUKAST 10 MG TABLET PO SCH (20:48)
[2019-01-01] MEDS: IPRATROPIUM/ALBUTEROL 3 ML NEB INH SCH ×4 (00:37→12:05)
[2019-01-01] MEDS: SODIUM CHLORIDE FLUSH 0.9% 10 ML SYRINGE IVP SCH ×2 (03:42→08:53)
[2019-01-01] MEDS: SENNA 8.6 MG TABLET PO SCH ×2 (03:45→09:43)
[2019-01-01] MEDS: diazePAM 5 MG TABLET PO PRN ×2 (03:49→14:58)
[2019-01-01] MEDS: BUDESONIDE 0.5 MG/2 ML NEB INH SCH (08:30)
[2019-01-01] MEDS: INSULIN ASPART 300 UNIT/3 ML PEN SUBQ SCH ×2 (08:45→14:25)
[2019-01-01] MEDS: predniSONE 20 MG TABLET PO SCH (08:46)
[2019-01-01] MEDS: ENOXAPARIN 40 MG/0.4 ML SYRINGE SUBQ SCH (08:47)
[2019-01-01] MEDS: acetaZOLAMIDE 250 MG TABLET PO SCH (08:47)
[2019-01-01] MEDS: SERTRALINE 50 MG TABLET PO SCH (08:48)
[2019-01-01] MEDS: FUROSEMIDE 40 MG TABLET PO SCH (08:48)
[2019-01-01] MEDS: TAMSULOSIN 0.4 MG CAPSULE PO SCH (08:48)
[2019-01-01] MEDS: SULFAMETH/TRIMETH DS 800/160 MG TABLET PO SCH (08:50)
[2019-01-01] MEDS: CHERRY SYRUP 10 ML UDC PO SCH (09:23)
[2019-01-01] MEDS: guaiFENesin 600 MG TABLET PO SCH (09:41)
[2019-01-01] MEDS: POLYETHYLENE GLYCOL 3350 17 GM PACKET PO SCH (09:44)
[2019-01-01] MEDS: CHLORHEXIDINE GLUCONATE 15 ML UDC PO SCH (09:52)
[2019-01-01] MEDS: SODIUM CHLORIDE 0.9% 1,000 ML IV SCH (09:52)
--- NOTE | 2019-01-01 13:01 | Discharge Plan ---
"Discharge Plan for SNF / [facility] - Discharge Plan And Transition Orders Disposition: 03 SNF DC/Xfer Condition: Stable Allergies and Adverse Reactions: Allergies Allergy/AdvReac Type Severity Reaction Status Date / Time No Known Drug Allergies Allergy Verified 12/26/18 08:19 - SNF / LONG TERM Transition Orders Admit to (Facility): [facility]. Under the care of (Name): Dr Gabriel Staton Discharge Diagnosis: 1) Health Care Acquired Pneumonia 2) COPD exacerbation 3) Severe COPD 4) Pulmonary Fibrosis 5) Morbid Obesity 6) Metabolic encephalopathy due to sedatives and Baclofen, resolved 7) Lung mass right upper lobe 8) Borderline Diabetes Mellitus 9) Code Status: Full Code Medicare Certification Statement: I certify that Post Hospital longterm care is medically necessary on a continuing basis for any of the conditions for which she/he is receiving care during hospitalization. Notify PCP of admission and forward orders to primary provider for signature. Weight on admission and: Weekly Call PCP immediately if weight increases by: 5 kg Other Notification Orders: Call PCP immediately if patient develops dyspnea, chest pain/tightness or edema. House Bowel Program: Yes Additional Bowel Program Orders: If no BM after 2 days, nurse may give M.O.M. 30ml PO PRN and/or ducolax Supp 1 NV and/or PACHECO 250mg P.O., and/or senna 1-2 tabs PO. On day 3 nurse may give repeat above order until residents constipation is resolved. Annual Influenza Vaccine (between Jul 21 and February 17): Yes Two-step PPD per [facility] [phone] or approved exception documents: Yes Treatments & Other Orders: PT daily Oxygen Orders: O2 at 4L oximizer. CPAP at night and with naps. Trilogy mask Medication Orders: PLEASE REFER TO THE DISCHARGE MEDICATION LIST. Insulin Orders?: Yes - Medications New Prescriptions: acetaZOLAMIDE [Diamox] 250 mg PO BID #60 tablet Furosemide [Lasix] 40 mg PO DAILY #30 tablet guaiFENesin [Mucinex] 600 mg PO BID #14 tablet Montelukast [Singulair] 10 mg PO QPM #30 tablet predniSONE [Deltasone] 60 mg PO DAILYWM #50 tablet Sulfamethox/Trimeth 800/160 [Bactrim Ds] 1 tab PO BID #10 tablet Tamsulosin [Flomax] 0.4 mg PO DAILY #30 capsule - Diet Type: No added salt Texture: Puree Liquids: Thin May have monthly special meal: Yes - Therapies | Activity Therapy: Evaluation | Treat if indicated: PT, OT Rehabilitation Potential: Maximize functional status Activity: Activity as Tolerated Weight Bearing: No Weight Assistance Devices: Other (Ruth lift if needed) Additional Instructions: You were admitted for treatment of a pneumonia and your COPD. Please resume all your pre-hospital medications. Please finish 5 more days of the antibiotics prescribed. There are new prescriptions for your lungs: Mucinex, Singulair and steroids. You are now prescribed new Lasix, Diamox and Flomax for eliminating fluid. If you have new or worsening symptoms, come to the ER."
[2019-01-01 15:59] VITALS: BP 149/64
--- NOTE | 2019-01-04 20:13 | DISCHARGE SUMMARY ---
Physician: Shannan Carolina MD DATE OF ADMISSION: 12/26/2018 DATE OF DISCHARGE: 01/01/2019 HISTORY OF PRESENT ILLNESS: This is a 68-year-old female with severe end-stage COPD, pulmonary fibrosis, pulmonary hypertension, right upper lobe spiculated lung nodule that is being followed by an oncology, opioid dependence on morphine for chronic pain, especially back pain. She was just discharged from this hospital 10 days previously for respiratory failure with hypoxia and hypercapnia, confusion, fever, chills and desaturating. After improvement was sent to [facility], rather than to her home, which she had previously been resistant to, but had appropriate management there and was pleased with her care. She presented this time, after just 10 days there, with community-acquired pneumonia with increasing respiratory rate, shortness of breath with wheezing and anxiety, required management with BiPAP, steroids, ICU stay and was placed on antibiotics. HOSPITAL COURSE AND DISCHARGE DIAGNOSES 1. Healthcare-acquired pneumonia. The patient had infiltrates seen bilaterally on chest x-ray. She had sputum and blood cultures done, as well as a throat culture. Blood cultures were negative. Her respiratory culture grew Enterobacter cloacae. She was treated with iv cefepime and iv vancomycin, and was transitioned to po Bactrim DS for discharge. She did transfer back to [facility], where the plan would be for possibly long-term stay. 2. Chronic obstructive pulmonary disease exacerbation. The patient required IV steroids, nebulizers, using her Trilogy mask, BiPAP, and supplemental oxygen 24/7. She had very slow improvement in her respiratory status. Even minimal activity would increase her respiratory rate and cause desaturations. She eventually was felt to be stable enough for discharge. 3. Severe chronic obstructive pulmonary disease. The patient has end-stage COPD. She has had multiple admissions for COPD exacerbations, nearly once every month recently. 4. Pulmonary fibrosis. She has been seen by palliative care and other providers to discuss her end-stage condition. Despite this, she has never wished to be made a DNR or DNI and wants aggressive medical care. 5. Morbid obesity. This is felt to be multifactorial from her immobility secondary to severe lung disease, her diet and her borderline diabetes. 6. Metabolic encephalopathy due to sedatives and Baclofen. Near the end of the hospitalization, the combination created one day of unexpected lethargy. When the sedatives and Baclofen were discontinued, she awoke and was at her baseline. 7. Lung mass, right upper lobe. The spiculated lung nodule has never had bronchoscopy with biopsy or any other invasive evaluation because of her procedural risks due to severe lung disease and obesity. She is being followed by Oncology at the [facility] here. 8. Borderline diabetes mellitus. The patient does require Insulin sliding scale doses because of elevated glucoses. LABS AND IMAGING: Reviewed and summarized above. ALLERGIES: NONE. MEDICATIONS AT THE TIME OF DISCHARGE 1. Albuterol inhaler p.r.n. 2. ProAir inhaler every 6 hours. 3. Lipitor 20 mg every night. 4. Homolog KwikPen sliding scale. 5. Morphine sulfate 5 mg p.o. t.i.d. 6. MiraLax daily. 7. Diamox 250 mg p.o. b.i.d. 8. Pulmicort inhaler b.i.d. 9. Diltiazem CD 120 mg daily. 10. Lasix 40 mg daily. 11. Mucinex 600 mg b.i.d. 12. Singulair 10 mg every evening. 13. Morphine sulfate 5 mg oral solution 2 hours p.r.n. 14. Prednisone 60 mg daily. 15. Zoloft 50 mg daily. 16. Bactrim DS 1 p.o. b.i.d. for an additional 5 days. 17. Flomax 0.4 mg p.o. daily. CONDITION AT DISCHARGE: Poor. PHYSICAL EXAMINATION VITAL SIGNS: Blood pressure 116/67, pulse of 95-100 in sinus rhythm, afebrile, 3 liter O2 via Oxymizer: saturation 93%. HEENT: Cushingoid facies, pursed lip breathing, shortness of breath when she speaks. NECK: Obese. CHEST: Diminished breath sounds diffusely, but good air movement and without rales or wheezes. HEART: Sounds are distant. ABDOMEN: Obese with pannus. Cannot rule out organomegaly. EXTREMITIES: Trace pretibial edema. NEUROLOGIC: Grossly intact. CODE STATUS: FULL CODE. FOLLOWUP: This will be determined during her long-term stay at [facility]. Time required for this entire discharge, chart review, SNF orders, discussion with the patient: 60 minutes. cc: DOMINGO Reyes TD: 01/04/2019 19:15 AMOL
== END 2019-01-01 16:16 | DRG 177 ==
LOC: EDUNIT# → ED 08:12 → ICU 12:36
PROVIDERS: ADMIT Family Medicine; ATTEND Internal Medicine
DX: J15.6 Pneumonia due to other Gram-negative bacteria (principal); G92 Toxic encephalopathy; J96.22 Acute and chronic respiratory failure with hypercapnia; E86.0 Dehydration; J96.21 Acute and chronic respiratory failure with hypoxia; J44.0 Chronic obstructive pulmonary disease with (acute) lower respiratory infection; E87.2 Acidosis; E87.1 Hypo-osmolality and hyponatremia; F11.23 Opioid dependence with withdrawal; J44.1 Chronic obstructive pulmonary disease with (acute) exacerbation; J84.10 Pulmonary fibrosis, unspecified; R53.83 Other fatigue; E66.01 Morbid (severe) obesity due to excess calories; Z68.29 Body mass index [BMI] 29.0-29.9, adult; J32.9 Chronic sinusitis, unspecified; F41.9 Anxiety disorder, unspecified; I10 Essential (primary) hypertension; R73.03 Prediabetes; D72.829 Elevated white blood cell count, unspecified; D38.1 Neoplasm of uncertain behavior of trachea, bronchus and lung; D50.9 Iron deficiency anemia, unspecified; R35.0 Frequency of micturition; R91.8 Other nonspecific abnormal finding of lung field; I27.20 Pulmonary hypertension, unspecified; R33.9 Retention of urine, unspecified; M19.90 Unspecified osteoarthritis, unspecified site; F41.8 Other specified anxiety disorders; Z99.81 Dependence on supplemental oxygen; T42.75XA Adverse effect of unspecified antiepileptic and sedative-hypnotic drugs, initial encounter; T42.8X5A Adverse effect of antiparkinsonism drugs and other central muscle-tone depressants, initial encounter; T38.0X5A Adverse effect of glucocorticoids and synthetic analogues, initial encounter; R06.89 Other abnormalities of breathing; M24.562 Contracture, left knee; M24.561 Contracture, right knee; M24.552 Contracture, left hip; M24.551 Contracture, right hip; G25.0 Essential tremor; Y92.230 Patient room in hospital as the place of occurrence of the external cause; Z51.5 Encounter for palliative care; Z79.51 Long term (current) use of inhaled steroids; Z79.891 Long term (current) use of opiate analgesic; Z79.4 Long term (current) use of insulin; Z87.01 Personal history of pneumonia (recurrent); Z87.891 Personal history of nicotine dependence
CPT/HCPCS: 36415; 36600; 51701; 71045; 80053; 80069; 81001; 81003; 82040; 82274; 82310; 82330; 82803; 83036; 83540; 83605; 83690; 83735; 83880; 84100; 84132; 84466; 84484; 85025; 86738; 87040; 87070; 87077; 87086; 87150; 87181; 87205; 87275; 87276; 87430; 93005; 94640; 94660; 94667; 94668; 96361; 96365; 96375; 99284; 99285

== ENCOUNTER 2019-01-01 16:25 | Outpatient (CLI) | payer MEDICARE, MEDICAID | END 2019-01-01 16:26 | LOC: EMS 16:25 | PROVIDERS: ATTEND Surgery | DX: J44.9 Chronic obstructive pulmonary disease, unspecified (principal) | CPT/HCPCS: A0425; A0428 ==

== ENCOUNTER 2019-01-04 15:34 | Outpatient (CLI) | payer MEDICARE, MEDICAID | END 2019-01-04 15:35 | disposition critical access hospital (66) | LOC: EMS 15:34 | PROVIDERS: ATTEND Surgery | DX: R06.02 Shortness of breath (principal); R07.89 Other chest pain; R05 Cough | CPT/HCPCS: A0425; A0427 ==

== ENCOUNTER 2019-01-04 15:41 | Inpatient (IN) | payer MEDICARE, MEDICAID ==
[2019-01-04] MEDS ORDERED: ALBUTEROL NEB 2.5 MG/3 ML INH STA (15:55)
[2019-01-04] MEDS ORDERED: IPRATROPIUM/ALBUTEROL 3 ML NEB INH STA (15:55)
--- NOTE | 2019-01-04 15:55 | ED Physician Documentation ---
PD HPI DYSPNEA - Stated complaint Stated Complaint: SOA - Chief complaint Chief Complaint: Resp - Additional information Additional information: 68-year-old female with a history of severe COPD who is oxygen dependent and resides at a halfway and who was recently discharged from our facility for a COPD exacerbation returns for shortness of breath with hypoxia. The patient was found by the nursing staff to be hypoxic and tachypneic and was given her normal regimen at the nursing facility with no improvement and EMS was called. EMS also found the patient to be hypoxic tachypneic and was treated with a DuoNeb which had some improvement. The patient reports increasing shortness of breath. No other new or different symptoms. Symptoms are described as severe. No triggering factors. 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 HEENT: Chronic sinusitis Psych: Depression, Anxiety Musculoskeletal: Osteoarthritis, Fatigue Derm: None - Past Surgical History Past Surgical History: No General: Cholecystectomy HEENT: Tonsil/Adenoidectomy - Present Medications Home Medications: Ambulatory Orders Medication Instructions Recorded Confirmed Albuterol Sulfate [Proair Hfa 1 puffs INH Q6H PRN 08/31/16 01/04/19 Inhaler] Polyethylene Glycol 3350 [Miralax] 17 g PO DAILY 10/19/18 01/04/19 Albuterol 2.5 mg INH Q4H PRN 11/19/18 01/04/19 Atorvastatin Calcium 20 mg PO QPM 12/10/18 01/04/19 Budesonide [Pulmicort] 0.5 mg INH RTBID neb 12/12/18 01/04/19 Morphine Sulfate [Morphine Sulf 5 mg PO Q2H PRN #30 solution 12/12/18 01/04/19 Oral (Roxanol)] Sertraline [Zoloft] 50 mg PO DAILY #0 tablet 12/12/18 01/04/19 dilTIAZem HCl [Diltiazem 24Hr ER] 120 mg PO DAILY #0 12/12/18 01/04/19 Insulin Lispro [Humalog Kwikpen 1 - 10 unit SQ ACHS MDD sliding 12/13/18 01/04/19 U-100] scale Morphine Sulfate [Morphine Sulf 5 mg PO TID 12/13/18 01/04/19 Oral (Roxanol)] Furosemide [Lasix] 40 mg PO DAILY #30 tablet 01/01/19 01/04/19 Montelukast [Singulair] 10 mg PO QPM #30 tablet 01/01/19 01/04/19 Sulfamethox/Trimeth 800/160 1 tab PO BID #10 tablet 01/01/19 01/04/19 [Bactrim Ds] Tamsulosin [Flomax] 0.4 mg PO DAILY #30 capsule 01/01/19 01/04/19 acetaZOLAMIDE [Diamox] 250 mg PO BID #60 tablet 01/01/19 01/04/19 guaiFENesin [Mucinex] 600 mg PO BID #14 tablet 01/01/19 01/04/19 predniSONE [Deltasone] 60 mg PO DAILYWM #50 tablet 01/01/19 01/04/19 - Allergies Allergies/Adverse Reactions: Allergies Allergy/AdvReac Type Severity Reaction Status Date / Time No Known Drug Allergies Allergy Verified 01/04/19 15:50 - Social History Does the pt smoke?: No Smoking Status: Never smoker Does the pt drink ETOH?: Yes Does the pt have substance abuse?: No - Immunizations Immunizations are current?: No Immunizations: TDAP >10years/unknown - POLST Patient has POLST: No POLST Status: Full Code PD ED PE NORMAL - General General: Alert and oriented X 3. No: No acute distress (The patient appears tachypneic and short of breath and chronically ill-appearing) - HEENT HEENT: Atraumatic, PERRL, EOMI, Ears normal - Neck Neck: Supple, no meningeal sign - Cardiac Cardiac: RRR, Strong equal pulses - Respiratory Respiratory: No: No respiratory distress (The patient is tachypneic, poor aeration and scattered expiratory wheezing) - Abdomen Abdomen: Soft, Non tender - Derm Derm: Normal color - Extremities Extremities: No deformity - Neuro Neuro: Alert and oriented X 3, Normal speech - Psych Psych: Normal affect Results - Vitals Vitals: Vital Signs - 24 hr 01/04/19 01/04/19 01/04/19 15:44 16:30 17:16 Temperature 36.0 C L Heart Rate 95 100 114 H Respiratory 15 22 23 Rate Blood Pressure 128/73 116/67 O2 Saturation 99 93 Oxygen O2 Source [With Activity] Triology unit O2 Source Nasal cannula - Labs Labs: Laboratory Tests 01/04/19 01/04/19 01/04/19 16:00 16:20 16:20 WBC 11.0 H RBC 3.99 L Hgb 11.5 L Hct 36.8 L MCV 92.3 MCH 28.8 MCHC 31.2 L RDW 18.3 H Plt Count 340 MPV 6.7 L Neut # (Auto) Not Reportable Lymph # (Auto) Not Reportable Greene # (Auto) Not Reportable Eos # (Auto) Not Reportable Baso # (Auto) Not Reportable Absolute Nucleated RBC Not Reportable Total Counted 100 Band Neuts % (Manual) 10 Abnorm Lymph % (Manual) 0 Nucleated RBC % Not Reportable Neutrophils # (Manual) 9.5 H Lymphocytes # (Manual) 1.1 L Monocytes # (Manual) 0.4 Eosinophils # (Manual) 0.0 Basophils # (Manual) 0.0 Differential Comment MANUAL DIFFERENTIAL Manual Slide Review Indicated WBC Morphology NORMAL APPEARANCE Platelet Estimate NORMAL (130-450,000) Platelet Morphology NORMAL APPEARANCE RBC Morph Micro Appear 1+ ANISOCYTOSIS VBG pH 7.306 L VBG pCO2 72.4 H VBG pO2 40.1 VBG HCO3 35.3 H VBG Total CO2 37.5 H VBG O2 Saturation 69.7 VBG Base Excess 6.7 H Sodium 135 Potassium 3.7 Chloride 89 L Carbon Dioxide 35 H Anion Gap 11.0 BUN 17 Creatinine 0.6 Estimated GFR (MDRD) 99 Glucose 232 H Calcium 8.6 Total Bilirubin 0.7 AST 25 ALT 29 Alkaline Phosphatase 79 Troponin I B-Natriuretic Peptide Total Protein 6.9 Albumin 3.5 Globulin 3.4 Albumin/Globulin Ratio 1.0 Lipase 40 01/04/19 01/04/19 16:20 16:20 WBC RBC Hgb Hct MCV MCH MCHC RDW Plt Count MPV Neut # (Auto) Lymph # (Auto) Greene # (Auto) Eos # (Auto) Baso # (Auto) Absolute Nucleated RBC Total Counted Band Neuts % (Manual) Abnorm Lymph % (Manual) Nucleated RBC % Neutrophils # (Manual) Lymphocytes # (Manual) Monocytes # (Manual) Eosinophils # (Manual) Basophils # (Manual) Differential Comment Manual Slide Review WBC Morphology Platelet Estimate Platelet Morphology RBC Morph Micro Appear VBG pH VBG pCO2 VBG pO2 VBG HCO3 VBG Total CO2 VBG O2 Saturation VBG Base Excess Sodium Potassium Chloride Carbon Dioxide Anion Gap BUN Creatinine Estimated GFR (MDRD) Glucose Calcium Total Bilirubin AST ALT Alkaline Phosphatase Troponin I 0.05 B-Natriuretic Peptide 64 Total Protein Albumin Globulin Albumin/Globulin Ratio Lipase - Rads (name of study) CXR Radiology: Final report received, See rad report (IMPRESSION: Persistent, although decreased, interstitial opacities in the lung bases. This may represent changes from chronic lung disease, atelectasis, mild interstitial edema, atypical infection, or less likely aspiration. Ill-defined nodular opacity projecting in the lateral right lung apex ) PD MEDICAL DECISION MAKING - ED course ED course: The patient arrived in mild distress, per reports she had severe respiratory distress at the nursing facility and by EMS the interventions had improved. The patient's workup shows concern for a infectious etiology potentially triggering her COPD. Given the patient's frail condition and reports of hypoxia despite being on supplemental oxygen she will require admission to the hospital for o ngoing management. The case was discussed with the hospitalist who accepts the patient onto her service. The patient understands and agrees to plan Departure - Departure Disposition: ED Place in Observation Clinical Impression: COPD with acute exacerbation, Hypoxia, Abnormal chest xray Discharge Date/Time: 01/04/19 19:22
[2019-01-04 16:26] LABS: VBG PCO2 72.4 mmHg (41-51); VBG PH 7.306 (7.31-7.41); VBG PO2 40.1 mmHg (25-47); VBG TOTAL CO2 37.5 mmol/L (24-29)
[2019-01-04 16:26] LABS: BASOPHILS % (AUTO) 0.3 %; EOSINOPHILS % (AUTO) 0.5 %; HGB - HEMOGLOBIN 11.5 g/dL (12.0-16.0); LYMPHOCYTES % (AUTO) 5.6 %; MEAN CORPUSCULAR HEMOGLOBIN 28.8 pg (27.0-31.0); MEAN CORPUSCULAR HGB CONC 31.2 g/dL (32.0-36.0); MEAN CORPUSCULAR VOLUME 92.3 fL (81.0-99.0); MEAN PLATELET VOLUME 6.7 fL (7.9-10.8); MONOCYTES % (AUTO) 2.5 %; NEUTROPHILS % (AUTO) 91.1 %; PLT - PLATELET COUNT 340 10^3/uL (130-450); RED BLOOD COUNT 3.99 10^6/uL (4.20-5.40); RED CELL DISTRIBUTION WIDTH 18.3 % (12.0-15.0)
[2019-01-04 16:27] LABS: VBG BASE EXCESS 6.7 mmol/L (-2 - +2)
[2019-01-04 16:31] LABS: ABNORMAL LYMPHS % (MANUAL) 0 %
[2019-01-04 16:45] LABS: ALBUMIN 3.5 g/dL (3.2-5.5); BILIRUBIN,TOTAL 0.7 mg/dL (0.2-1.0); CALCIUM 8.6 mg/dL (8.5-10.3); CREATININE 0.6 mg/dL (0.4-1.0); TOTAL PROTEIN 6.9 g/dL (6.7-8.2)
[2019-01-04 16:47] LABS: BAND NEUTROPHILS % (MANUAL) 10 %; LYMPHOCYTES # (MANUAL) 1.1 10^3/uL (1.5-3.5); LYMPHOCYTES % (MANUAL) 10 %; MONOCYTES # (MANUAL) 0.4 10^3/uL (0.0-1.0); NEUTROPHILS # (MANUAL) 9.5 10^3/uL (1.5-6.6); NEUTROPHILS % (MANUAL) 76 %
[2019-01-04 16:48] LABS: DIFFERENTIAL COMMENT MANUAL DIFFERENTIAL; PLATELET ESTIMATE, MANUAL NORMAL (130-450,000) (NORMAL); PLATELET MORPHOLOGY NORMAL APPEARANCE (NORMAL); RBC MORPHOLOGY (MULTIPLE) 1+ ANISOCYTOSIS (NORMAL)
--- NOTE | 2019-01-04 17:04 | XRAY Report ---
Reason: soa Procedure Date: 01/04/2019 Accession Number: [id number] / [id number] Procedure: XR - Chest 1 View X-Ray CPT Code: 81678 FULL RESULT: EXAM: CHEST RADIOGRAPHY EXAM DATE: 01/04/2019 04:24 PM. CLINICAL HISTORY: Shortness of breath. COMPARISON: CHEST 1 VIEW 12/26/2018 8:46 AM. TECHNIQUE: 1 view. FINDINGS: Cardiac leads overlie the chest. Heart size is normal. Calcified plaques in the thoracic aorta. Persistent, although slightly decreased interstitial opacities in the lung bases bilaterally. No focal consolidation. Possible small bilateral pleural effusions. No pneumothorax visualized. Possible ill-defined nodular opacity in the lateral right upper lobe measuring 11 mm. IMPRESSION: Persistent, although decreased, interstitial opacities in the lung bases. This may represent changes from chronic lung disease, atelectasis, mild interstitial edema, atypical infection, or less likely aspiration. Ill-defined nodular opacity projecting in the lateral right lung apex measuring approximately 11 mm. This could represent parenchymal scarring, although a CT chest could exclude a pulmonary nodule. RADIA
[2019-01-04] MEDS ORDERED: predniSONE 20 MG TABLET PO STA (17:46)
[2019-01-04] MEDS ORDERED: DOXYCYCLINE 100 MG TABLET PO STA (17:46)
[2019-01-04] MEDS: IPRATROPIUM/ALBUTEROL 3 ML NEB INH PRN ×2 (20:08→23:35)
[2019-01-04] MEDS ORDERED: SODIUM CHLORIDE FLUSH 0.9% 10 ML SYRINGE IVP PRN (20:15)
[2019-01-04] MEDS ORDERED: ONDANSETRON 4 MG/2 ML VIAL IVP PRN (20:15)
[2019-01-04] MEDS ORDERED: ACETAMINOPHEN 325 MG TABLET PO PRN (20:15)
[2019-01-04] MEDS: MORPHINE 2 MG/ML CARPUJECT IVP PRN (21:42)
--- NOTE | 2019-01-05 01:51 | HISTORY & PHYSICAL EXAMINATION ---
Chief Complaint - Chief Complaint Chief Complaint: dyspnea History of Present Illness - Admitted From Admitted From:: [facility] ED - History Obtained From Records Reviewed: yes History obtained from: ED H&P - History of Present Illness HPI Comment/Other: Patient is a 68 y/o female with evere/ end stage COPD. She is oxygen dependent, has significant conversational dyspnea and pursed lip breaths at baseline. She is well known tot hospital care. She is coming from the [facility] facility. This is her 4th admission in under 7 weeks with the last discharge being 01/01/19. It is reported that the patient was found by the nursing staff to be hypoxic and tachypneic and was given her normal regimen at the nursing facility with no improvement and EMS was called. EMS also found the patient to be hypoxic tachypneic and was treated with a DuoNeb which had some improvement. Consequently she was brought to the ED. At bedside she is receiving a breathing treatment. She not able to tell me how she is feeling relative to when she presented tot ED. She is a poor historian, which limits this history. 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 Mom smoked up until her and she of COPD complications. Dad also of COPD. She has 4 brothers and one sister. All of them live in [place] except except one who lives in the [facility]. She says that no one has diabetes, hypertension, heart disease, or emphysema. Of 3 children her youngest daughter with killed or under suspicious circumstances. Her other 2 children are healthy. Social History Notes: Patient is a woman who lives alone in [place]. She was born in [place] and is retired. She has two children. The patient has lived on [address] since 1983. Prior to that she lived in the [facility]. The patient has a daughter and son both of whom live on [address]. The patient quit smoking Around 2007 but smoked 1 pack a day for over 50 years Starting at the age of 17. The patient does drink 1 beer a night. In the past she has done marijuana. When she was to her first he was a cocaine addict and she tried cocaine a few times but she never used it on a regular basis. She has not used it since her 20s.She has a Jonathan worker that comes by every day except Monday and Monday. But the jonathan worker is only a few hours a day. Because of excessive breathlessness, end-stage lung disease, she has become homebound over the last year - Substance History Use: Uses substance without health or social issues: NONE (Quit smoking but previously smoked 1PPD for over 50 years), Alcohol (1 beer a night) - POLST Patient has POLST: No POLST Status: Full Code Meds/Allgy - Home Medications Home Medications: Ambulatory Orders Medication Instructions Recorded Confirmed Albuterol Sulfate [Proair Hfa 1 puffs INH Q6H PRN 08/31/16 01/04/19 Inhaler] Polyethylene Glycol 3350 [Miralax] 17 g PO DAILY 10/19/18 01/04/19 Albuterol 2.5 mg INH Q4H PRN 11/19/18 01/04/19 Atorvastatin Calcium 20 mg PO QPM 12/10/18 01/04/19 Budesonide [Pulmicort] 0.5 mg INH RTBID neb 12/12/18 01/04/19 Morphine Sulfate [Morphine Sulf 5 mg PO Q2H PRN #30 solution 12/12/18 01/04/19 Oral (Roxanol)] Sertraline [Zoloft] 50 mg PO DAILY #0 tablet 12/12/18 01/04/19 dilTIAZem HCl [Diltiazem 24Hr ER] 120 mg PO DAILY #0 12/12/18 01/04/19 Insulin Lispro [Humalog Kwikpen 1 - 10 unit SQ ACHS MDD sliding 12/13/18 01/04/19 U-100] scale Morphine Sulfate [Morphine Sulf 5 mg PO TID 12/13/18 01/04/19 Oral (Roxanol)] Furosemide [Lasix] 40 mg PO DAILY #30 tablet 01/01/19 01/04/19 Montelukast [Singulair] 10 mg PO QPM #30 tablet 01/01/19 01/04/19 Sulfamethox/Trimeth 800/160 1 tab PO BID #10 tablet 01/01/19 01/04/19 [Bactrim Ds] Tamsulosin [Flomax] 0.4 mg PO DAILY #30 capsule 01/01/19 01/04/19 acetaZOLAMIDE [Diamox] 250 mg PO BID #60 tablet 01/01/19 01/04/19 guaiFENesin [Mucinex] 600 mg PO BID #14 tablet 01/01/19 01/04/19 predniSONE [Deltasone] 60 mg PO DAILYWM #50 tablet 01/01/19 01/04/19 - Allergies Allergies/Adverse Reactions: Allergies Allergy/AdvReac Type Severity Reaction Status Date / Time No Known Drug Allergies Allergy Verified 01/04/19 15:50 Review of Systems - Constitutional Constitutional: reports: Fatigue. denies: Fever, Chills - Eyes Eyes: denies: Blurred vision, Vision loss, Dipolpia - Ears, Nose & Throat Ears, Nose & Throat: denies: Nasal pain, Nasal discharge, Sore throat - Cardiovascular Cariovascular: reports: Edema. denies: Chest pain - Respiratory Respiratory: reports: Cough, Sputum production, Wheezing, SOB at rest, SOB with exertion - Gastrointestinal Gastrointestinal: denies: Abdominal pain, Abdominal distention, Constipation, Diarrhea, Nausea, Vomiting - Genitourinary Genitourinary: denies: Dysuria, Frequency, Urgency, Hematuria - Musculoskeletal Musculoskeletal: denies: Muscle pain, Back pain - Integumentary Integumentary: denies: Rash, Pruritis, Lesions, Dryness - Neurological Neurological: denies: Headache, Dizziness - Psychiatric Psychiatric: denies: Depression, Delusions, Hallucinations - Endocrine Endocrine: denies: Polyuria, Polydypsia, Polyphagia - Hematologic/Lymphatic Hematologic/Lymphatic: denies: Anemia, Bruising, Petechiae Prior Level of Functionality: oxygen Oxygen-dependent at baseline, pursed lip breathing. Coming from [facility]. Has been there because she is unable to get the needed assistance at home. Mostly dependent for activities of daily living Exam - Vital Signs Vital Signs: Vital Signs x48h Temp Pulse Pulse Resp BP Pulse Ox 01/05/19 00:00 36.8 C 97 20 130/57 L 92 01/04/19 23:35 93 20 01/04/19 20:08 99 22 - Physical Exam General Appearance: positive: Alert, Moderate distress Eyes Bilateral: positive: Normal inspection, PERRL, EOMI ENT: positive: ENT inspection nml Neck: positive: Nml inspection, No JVD, Trachea midline Respiratory: positive: Chest non-tender, Wheezes, Rales, Rhonchi. negative: No respiratory distress, Breath sounds nml Cardiovascular: positive: Regular rate & rhythm Abdomen: positive: Non-tender, No organomegaly, Nml bowel sounds, No distention Back: positive: Nml inspection Skin: positive: Color nml, No rash, Warm, Dry Extremities: positive: Nml appearance, Pedal edema. negative: Non-tender Neurologic/Psychiatric: positive: Oriented x3 Conclusion/Plan - Problem List (1) Acute exacerbation of chronic obstructive pulmonary disease (COPD) Conclusion/Plan: Prednisone 60mg po daily ordered Duonebs q4hrs prn (2) Acute on chronic respiratory failure with hypoxia and hypercapnia Conclusion/Plan: 2/2 COPD exacerbation Treating by addressing COPD (3) Pneumonia Conclusion/Plan: Improving Continue bactrim prescribed at discharge Qualifiers: Pneumonia type: due to unspecified organism Laterality: right Lung location: lower lobe of lung Qualified Code(s): J18.1 - Lobar pneumonia, unspecified organism (4) Pulmonary hypertension Conclusion/Plan: Chronic Pulmonary fibrosis (5) Depression Conclusion/Plan: On zoloft Qualifiers: Depression Type: unspecified Qualified Code(s): F32.9 - Major depressive disorder, single episode, unspecified (6) Chest pain Conclusion/Plan: On roxanol at home morphine 2mg IV q4hrs prn ordered Qualifiers: Chest pain type: unspecified Qualified Code(s): R07.9 - Chest pain, unspecified (7) Hypertension Conclusion/Plan: On amlodipine, diltiazem and valsartan Qualifiers: Hypertension type: essential hypertension Qualified Code(s): I10 - Essential (primary) hypertension (8) Hyperlipemia Conclusion/Plan: Atorvastatin - Lab Results Fish Bones: 01/04/19 16:20 01/04/19 16:20
[2019-01-05] MEDS: MORPHINE 2 MG/ML CARPUJECT IVP PRN (02:01)
[2019-01-05] MEDS: SODIUM CHLORIDE FLUSH 0.9% 10 ML SYRINGE IVP SCH ×2 (02:15→10:31)
[2019-01-05 06:02] LABS: BASOPHILS % (AUTO) 0.1 %; LYMPHOCYTES # (AUTO) 0.4 10^3/uL (1.5-3.5); MEAN CORPUSCULAR HEMOGLOBIN 29.1 pg (27.0-31.0); MEAN CORPUSCULAR HGB CONC 32.2 g/dL (32.0-36.0); MEAN CORPUSCULAR VOLUME 90.5 fL (81.0-99.0); MEAN PLATELET VOLUME 6.4 fL (7.9-10.8); MONOCYTES # (AUTO) 0.2 10^3/uL (0.0-1.0); MONOCYTES % (AUTO) 3.2 %; NEUTROPHILS # (AUTO) 6.8 10^3/uL (1.5-6.6); NEUTROPHILS % (AUTO) 91.7 %; PLT - PLATELET COUNT 290 10^3/uL (130-450); RED BLOOD COUNT 3.44 10^6/uL (4.20-5.40); RED CELL DISTRIBUTION WIDTH 18.4 % (12.0-15.0); WHITE BLOOD COUNT 7.4 x10^3/uL (4.8-10.8)
[2019-01-05 06:06] LABS: CALCIUM 8.3 mg/dL (8.5-10.3); CREATININE 0.5 mg/dL (0.4-1.0)
[2019-01-05] MEDS ORDERED: predniSONE 20 MG TABLET PO SCH (08:00)
[2019-01-05] MEDS: IPRATROPIUM/ALBUTEROL 3 ML NEB INH PRN ×2 (08:54→13:41)
[2019-01-05 08:59] VITALS: BP 159/55
[2019-01-05] MEDS ORDERED: ENOXAPARIN 40 MG/0.4 ML SYRINGE SUBQ SCH (09:00)
[2019-01-05] MEDS ORDERED: POLYETHYLENE GLYCOL 3350 17 GM PACKET PO SCH (09:00)
[2019-01-05] MEDS ORDERED: MORPHINE SOL 10 MG/0.5 ML SYRINGE PO PRN (11:55)
--- NOTE | 2019-01-05 11:58 | Discharge Plan ---
"Discharge Plan for SNF / RETIREMENT - Discharge Plan And Transition Orders Disposition: 03 SNF DC/Xfer Allergies and Adverse Reactions: Allergies Allergy/AdvReac Type Severity Reaction Status Date / Time No Known Drug Allergies Allergy Verified 01/04/19 15:50 - SNF / RETIREMENT Transition Orders Admit to (Facility): [facility] Under the care of (Name): Dr. Staton Discharge Diagnosis: Acute exacerbation of COPD with asthma (J44.1) resolved, at baseline Acute respiratory failure with hypoxia and hypercapnia (J96.01) resolved, at baseline Pulmonary hypertension (I27.20) chronic, stable. Hypertension (I10) chronic, stable Hyperlipidemia (E78.5) chronic, stable Pneumonia (J18.9) ongoing, stable Medicare Certification Statement: I certify that [facility] alf care is medically necessary on a continuing basis for any of the conditions for which she/he is receiving care during hospitalization. Notify PCP of admission and forward orders to primary provider for signature. Weight on admission and: Weekly Other Notification Orders: Call PCP immediately if patient develops dyspnea, chest pain/tightness or edema. House Bowel Program: Yes Additional Bowel Program Orders: If no BM after 2 days, nurse may give M.O.M. 30ml PO PRN and/or ducolax Supp 1 MN and/or PACHECO 250mg P.O., and/or senna 1-2 tabs PO. On day 3 nurse may give repeat above order until residents constipation is resolved. Annual Influenza Vaccine (between Jul 21 and February 17): Yes Two-step PPD per [facility] [id number] or approved exception documents: Yes Oxygen Orders: 2-6L Medication Orders: PLEASE REFER TO THE DISCHARGE MEDICATION LIST. Insulin Orders?: No - Medications New Prescriptions: Morphine Sulfate [Morphine Sulf Oral (Roxanol)] 10 mg PO Q2H PRN #30 ml PRN Reason: Pain/Dyspnea - Diet Type: Geriatric Texture: Regular Liquids: Thin - Therapies | Activity Rehabilitation Potential: Maximize functional status, Return to independent living Activity: Activity as Tolerated Weight Bearing: Full Weight Assistance Devices: Wheelchair, Walker"
--- NOTE | 2019-01-05 12:08 | DISCHARGE SUMMARY ---
Discharge Summary Admit Date: 01/04/19 Discharge Date: 01/05/19 Discharging Provider: DOMINGO Hdez Primary Care Provider: Dr. Staton Code Status: Attempt Resuscitation Condition at Discharge: Stable Discharge Disposition: [facility] DC/Xfer Discharge Facility Name: [facility] - DIAGNOSES Discharge Diagnoses with Status of Each Condition: Acute exacerbation of COPD with asthma (J44.1) resolved, at baseline Acute respiratory failure with hypoxia and hypercapnia (J96.01) resolved, at baseline Pulmonary hypertension (I27.20) chronic, stable. Hypertension (I10) chronic, stable Hyperlipidemia (E78.5) chronic, stable Pneumonia (J18.9) ongoing, stable - HPI History of Present Illness: HPI per Dr. Beebe: Patient is a 68 y/o female with evere/ end stage COPD. She is oxygen dependent, has significant conversational dyspnea and pursed lip breaths at baseline. She is well known tot [facility] care. She is coming from the [facility]. This is her 4th admission in under 7 weeks with the last discharge being 01/01/19. It is reported that the patient was found by the nursing staff to be hypoxic and tachypneic and was given her normal regimen at the nursing facility with no improvement and EMS was called. EMS also found the patient to be hypoxic tachypneic and was treated with a DuoNeb which had some improvement. Consequently she was brought to the ED. At bedside she is receiving a breathing treatment. She not able to tell me how she is feeling relative to when she presented tot ED. She is a poor historian, which limits this history. - HOSPITAL COURSE Hospital Course: The patient states that she was not getting her liquid morphine at the [facility], so a new prescription was written to be continued at [facility]. Her respiratory status was unchanged, and remained on her usual oxygen via nasal cannula. She was medically stable and transported back to [facility] with S for her inability to sit independently in a wheel chair and her high oxygen needs. - ALLERGIES Allergies/Adverse Reactions: Allergies Allergy/AdvReac Type Severity Reaction Status Date / Time No Known Drug Allergies Allergy Verified 01/04/19 15:50 - MEDICATIONS Home Medications: Ambulatory Orders Medication Instructions Recorded Confirmed Albuterol Sulfate [Proair Hfa 1 puffs INH Q6H PRN 08/31/16 01/04/19 Inhaler] Polyethylene Glycol 3350 [Miralax] 17 g PO DAILY 10/19/18 01/04/19 Albuterol 2.5 mg INH Q4H PRN 11/19/18 01/04/19 Atorvastatin Calcium 20 mg PO QPM 12/10/18 01/04/19 Budesonide [Pulmicort] 0.5 mg INH RTBID neb 12/12/18 01/04/19 Sertraline [Zoloft] 50 mg PO DAILY #0 tablet 12/12/18 01/04/19 dilTIAZem HCl [Diltiazem 24Hr ER] 120 mg PO DAILY #0 12/12/18 01/04/19 Insulin Lispro [Humalog Kwikpen 1 - 10 unit SQ ACHS MDD sliding 12/13/18 01/04/19 U-100] scale Morphine Sulfate [Morphine Sulf 5 mg PO TID 12/13/18 01/04/19 Oral (Roxanol)] Furosemide [Lasix] 40 mg PO DAILY #30 tablet 01/01/19 01/04/19 Montelukast [Singulair] 10 mg PO QPM #30 tablet 01/01/19 01/04/19 Sulfamethox/Trimeth 800/160 1 tab PO BID #10 tablet 01/01/19 01/04/19 [Bactrim Ds] Tamsulosin [Flomax] 0.4 mg PO DAILY #30 capsule 01/01/19 01/04/19 acetaZOLAMIDE [Diamox] 250 mg PO BID #60 tablet 01/01/19 01/04/19 guaiFENesin [Mucinex] 600 mg PO BID #14 tablet 01/01/19 01/04/19 predniSONE [Deltasone] 60 mg PO DAILYWM #50 tablet 01/01/19 01/04/19 Morphine Sulfate [Morphine Sulf 10 mg PO Q2H PRN #30 ml 01/05/19 Oral (Roxanol)] - PHYSICAL EXAM AT DISCHARGE General Appearance: positive: Alert, Moderate distress, Anxious Eyes Bilateral: positive: PERRL ENT: positive: Pharyngeal erythema, Dry mucous membranes Neck: positive: Thyroid nml, No JVD, Trachea midline, Lymphadenopathy (R), Lymphadenopathy (L), Stiff neck Respiratory: positive: Chest non-tender, Rhonchi Cardiovascular: positive: No gallop, Irregularly irregular, Systolic murmur Peripheral Pulses: positive: 1+ Abdomen: positive: Non-tender, Nml bowel sounds, Other (rounded, soft) Back: positive: Nml inspection Skin: positive: No rash, Warm, Dry Extremities: positive: Non-tender, Pedal edema, Joint swelling Neurologic/Psychiatric: positive: Oriented x3, CN's nml (2-12), Motor nml, Sensation nml, Weakness, Sensory loss, Depressed mood/affect, Other (chronic limited speech due to SOB) Reflexes: Bicep (R): 2+, Bicep (L): 2+ - LABS Result Diagrams: 01/05/19 05:29 01/05/19 05:29 - DIAGNOSTIC IMAGING Diagnostic Imaging Results: Final report reviewed Diagnostic Imaging Results Comments: EXAM: CHEST RADIOGRAPHY EXAM DATE: 01/04/2019 04:24 PM FINDINGS: Cardiac leads overlie the chest. Heart size is normal. Calcified plaques in the thoracic aorta. Persistent, although slightly decreased interstitial opacities in the lung bases bilaterally. No focal consolidation. Possible small bilateral pleural effusions. No pneumothorax visualized. Possible ill-defined nodular opacity in the lateral right upper lobe measuring 11 mm. IMPRESSION: Persistent, although decreased, interstitial opacities in the lung bases. This may represent changes from chronic lung disease, atelectasis, mild interstitial edema, atypical infection, or less likely aspiration. Ill-defined nodular opacity projecting in the lateral right lung apex measuring approximately 11 mm. This could represent parenchymal scarring, although a CT chest could exclude a pulmonary nodule. - TIME SPENT Time Spent in Discharge (Minutes): 45
== END 2019-01-05 14:40 | DRG 189 ==
LOC: EDUNIT# → ED 15:41 → MS2 18:38
PROVIDERS: ADMIT Internal Medicine; ATTEND Nurse Practitioner
DX: J96.22 Acute and chronic respiratory failure with hypercapnia (principal); R09.02 Hypoxemia; R91.8 Other nonspecific abnormal finding of lung field; J18.1 Lobar pneumonia, unspecified organism; J44.1 Chronic obstructive pulmonary disease with (acute) exacerbation; J44.0 Chronic obstructive pulmonary disease with (acute) lower respiratory infection; J96.21 Acute and chronic respiratory failure with hypoxia; I27.20 Pulmonary hypertension, unspecified; E11.9 Type 2 diabetes mellitus without complications; E78.5 Hyperlipidemia, unspecified; I10 Essential (primary) hypertension; R07.9 Chest pain, unspecified; K21.9 Gastro-esophageal reflux disease without esophagitis; R35.0 Frequency of micturition; J32.9 Chronic sinusitis, unspecified; F32.9 Major depressive disorder, single episode, unspecified; F41.9 Anxiety disorder, unspecified; M19.90 Unspecified osteoarthritis, unspecified site; R53.83 Other fatigue; Z99.81 Dependence on supplemental oxygen; Z79.891 Long term (current) use of opiate analgesic; Z79.51 Long term (current) use of inhaled steroids; Z87.01 Personal history of pneumonia (recurrent); Z79.01 Long term (current) use of anticoagulants; Z79.899 Other long term (current) drug therapy; Z87.891 Personal history of nicotine dependence
CPT/HCPCS: 36415; 71045; 80048; 80053; 82803; 83690; 83880; 84484; 85025; 93005; 94640; 99283; 99285

== ENCOUNTER 2019-01-05 14:48 | Outpatient (CLI) | payer MEDICARE, MEDICAID | END 2019-01-05 14:49 | LOC: EMS 14:48 | PROVIDERS: ATTEND Surgery | DX: J44.9 Chronic obstructive pulmonary disease, unspecified (principal); Z99.81 Dependence on supplemental oxygen; Z74.01 Bed confinement status; R53.1 Weakness | CPT/HCPCS: A0425; A0428 ==

== ENCOUNTER 2019-01-14 10:55 | Outpatient (CLI) | payer MEDICARE, MEDICAID ==
--- NOTE | 2019-01-14 18:33 | CONSULTATION NOTE ---
Palliative Care Follow Up - Referral Referring Provider: DOMINGO Reyes Time of Visit: Mon01/14/2019. 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 PET and MRI were inconclusive for cancer, bur revealed no brain mets. A lung biopsy can't be performed so there is no cancer diagnosis. Patient has had numerous hospitalizations/ICU visits and ED visits since April -April for COPD exacerbation, lung mass detected -May ED for SOA -Jul 18 hospital for pneumonia -Sep 13 ED for SOA -Sep 16 hospitalization for pneumonia -Oct 13 hospitalization for COPD exacerbation. -Oct 30 ED for COPD exacerbation, bronchitis -Nov 19 ICU for acute respiratory failure/COPD exacerbation with hypoxia and hypercapnia; and CAP -Nov COPD exacerbation She had been living at home at her insistence, with [facility]UR[facility] caregiving, RN support from [facility], and her daughter and friends helping with caregiving. However, a restraining order is been in place against her daughter due to illicit drug use. Patient's condition deteriorated, she requires 24-hour care and she is now at [facility]. She has stated to [facility] that her current plan is to remain at [facility] until she "gets better," and then move back home. Patient's respiratory status is extremely poor and brittle, but she is currently at baseline with routine morphine 5mg solution TID routine and 10mg Q2h prn, which she has been using 1-3 times daily for the past week. She erroneously reported to hospitalist Tanja Almodovar she wasn't receiving morphine prior to her last ED visit; this was incorrect, she receive morphine TID routine, and has morphine PRN Q2hr She is on prednisone taper, currently at 40mg, decreasing to ongoing 20mg daily starting 01/16. Patient is puffy in face, at her baseline with significant SOA, pursed lip breathing and difficulty carrying conversation due to SOA. She hasn't been using the Trilogy and wants to; I spoke with RN to get it set up. Social History - Living Situation Living arrangement: care home ([facility]) Living Situation: With caregiver(s) Support System: Patient's family is highly avoidant in discussing her disease or goals of care. Son Ronnie is recently out of long term and doesn't want to speak about it, and does not want medical decision making, he refers to his Aunt. The aunt, who is Tameka Stock (Margie), was at a recent family conference, but since then has been unreachable. Daughter Ivette actively uses drugs and has a restraining order to prevent her from accessing the patient's apartment. Medications/Allergies - Medications Home Medications: Ambulatory Orders Medication Instructions Recorded Confirmed Albuterol Sulfate [Proair Hfa 1 puffs INH Q6H PRN 08/31/16 01/14/19 Inhaler] Polyethylene Glycol 3350 [Miralax] 17 g PO DAILY 10/19/18 01/14/19 Albuterol 2.5 mg INH Q4H PRN 11/19/18 01/14/19 Atorvastatin Calcium 20 mg PO QPM 12/10/18 01/14/19 Budesonide [Pulmicort] 0.5 mg INH RTBID neb 12/12/18 01/14/19 Sertraline [Zoloft] 50 mg PO DAILY #0 tablet 12/12/18 01/14/19 dilTIAZem HCl [Diltiazem 24Hr ER] 120 mg PO DAILY #0 12/12/18 01/14/19 Insulin Lispro [Humalog Kwikpen 1 - 10 unit SQ ACHS MDD sliding 12/13/18 01/14/19 U-100] scale Morphine Sulfate [Morphine Sulf 5 mg PO TID 12/13/18 01/14/19 Oral (Roxanol)] Furosemide [Lasix] 40 mg PO DAILY #30 tablet 01/01/19 01/14/19 Montelukast [Singulair] 10 mg PO QPM #30 tablet 01/01/19 01/14/19 Tamsulosin [Flomax] 0.4 mg PO DAILY #30 capsule 01/01/19 01/14/19 acetaZOLAMIDE [Diamox] 250 mg PO BID #60 tablet 01/01/19 01/14/19 guaiFENesin [Mucinex] 600 mg PO BID #14 tablet 01/01/19 01/14/19 Morphine Sulfate [Morphine Sulf 10 mg PO Q2H PRN #30 ml 01/05/19 01/14/19 Oral (Roxanol)] predniSONE [Deltasone] 20 mg PO DAILY MDD Start date 01/14/19 01/14/19 01/16/19 predniSONE [Deltasone] 40 mg PO DAILYWM 01/14/19 01/14/19 - Allergies Allergies/Adverse Reactions: Allergies Allergy/AdvReac Type Severity Reaction Status Date / Time No Known Drug Allergies Allergy Verified 01/04/19 15:50 Review of Systems - Constitutional Constitutional: reports: Fatigue, Weakness, Weight loss (188.4lbs 01/11/19 (5% decrease from 12/15). 190 lbs 01/07. 191.6 01/03/19. 192.8 lbs 12/17/18. 200 lbs 12/15/18. 199.4 lbs 05/16/18. 210 lbs 12/26/17.). denies: Diaphoresis - Eyes Eyes: reports: Vision loss - Ears, Nose & Throat Ears, Nose & Throat: denies: Hearing loss, Postnasal drainage - Cardiovascular Cardiovascular: reports: Edema, Exertional dyspnea, Decr. exercise tolerance. denies: Palpitations, Chest pain - Respiratory Respiratory: reports: Wheezing, SOB at rest, SOB with exertion - Gastrointestinal Gastrointestinal: denies: Constipation - Genitourinary Genitourinary: reports: Incontinence (functional). denies: Dysuria - Musculoskeletal Musculoskeletal: reports: Muscle weakness, Transfer issues - Integumentary Integumentary: reports: Dryness (feet) - Neurological Neurological: reports: General weakness, Memory problems - Psychiatric Psychiatric: reports: Depression, Anxiety - Endocrine Endocrine: reports: Diabetes type 2 - All Other Systems All Other Systems: reports: Reviewed and negative Physical Exam - Vital Signs Temperature: 96.6 F Pulse Rate: 84 O2 Saturation: 99 (3L O2) Blood Pressure: 148/60 - Physical Exam General Appearance: positive: No acute distress, Alert Eyes Bilateral: positive: No lid inflammation, Conjunctivae nml, No scleral icterus ENT: positive: ENT inspection nml, No signs of dehydration Neck: positive: No JVD, Trachea midline Cardiovascular: positive: Regular rate & rhythm, No murmur Respiratory: positive: Chest non-tender, No respiratory distress, Diminished throughout, Wheezes Abdomen: positive: Non-tender Skin: positive: Dryness. negative: Rash Extremities: positive: Nml appearance, Pedal edema Neurologic/Psychiatric: positive: Oriented x3, Flat affect Palliative Care - POLST Patient has POLST: Yes POLST Status: Full Code Depression: Mild (1-3) Dyspnea: Severe (7-10) Performance Status: SOA with minimal exertion, so is bedbound - Palliative Care Discussion: Patient is currently full code on her POLST. Tried to discuss status of her disease and goals of care in light of it being non-curable, and looking at reconsidering full code, her answer is consistently as it has been. She wants to discuss with her sister (DPKY). And she will take a copy and fill it out later herself. SNF MATTHIAS and RN kerend a family conference a few weeks ago with patient and her sister Angie, who is DPOA. Much time was spent explaining she is end of life and incurable. They report that sister and patient seemed surprised, didn't have much reaction but startled looks. They discussed with family about [place] to handle end stage lung disease. This is [facility] ([phone]). Patient did agree to SNF sharing her medical files with [facility]. MATTHIAS has not been able to connect with Daniela recently. Daniela had said they would only accept patient after she spent 3 days in ICU. MATTHIAS is trying to clarify, since patient has spent considerable time in ICU, including the most recent visit from 12/26 - 01/04/19. Patient has told SNF she will stay in SNF until she gets better, and then will move back to her apartment. Patient has very poor and incomplete understanding that she is end-stage disease or care requirements, despite hospitalists, Palliative Care and SNF staff conferences and discussions that this is not curable and at end-of-life stage. MATTHIAS has also not been able to connect with DPKY Angie since the family conference. Son Ronnie does visit the patient, but consistently refuses to discuss patient's condition and refers any goals of care discussion to the sister. So patient remains full code, and [facility] continues to work on possible transfer to a facility specialized in end stage pulmonary care. Impression and Recommendations - Palliative Care Impression: 68-year-old female with end-stage COPD on continuous oxygen, pulmonary fibrosis, pulmonary hypertension, likely lung cancer but unable to obtain biopsy to confirm. She now resides at [facility]. She has frequent hospitalizations; her choice is to remain full code. SNF is trying to place her in a more appropriate setting for her care needs: [facility] [place]. Patient has unrealistic and poor understanding of her disease and prognosis. Recommendations/Counseling Done: COPD exacerbation, end stage lung disease: Now residing at [facility]. Latest ICU was 12/26 - 01/04/19 for respiratory crisis. Continues on 24hour oxygen (3L), inhalers, montelukast, nebulizer PRN, Trilogy, and steroids taper down to 20mg then ongoing. RN will help her set up Trilogy, which she hasn't used recently. She's on liquid morphine 0.25mL (5mg) routine TID and 0.5mL (10mg) [id number] prn, which she's been using 2-3 times daily this week. Constipation, opioid induced: Managed with Miralax Tachycardia and HTN: Continue Diltiazem 120mg. BP today 148/60. Anxiety: Controlled on sertraline/Zoloft 50mg daily. She is not on any benzodiapapine, but has been in the past. Advance care planning: Full code; patient uses avoidance with any discussion on updating goals of care and POLST. Patient has told SNF SW she will stay at [facility] until she is "better" and then wants to return to her apartment. She has given the [facility] permission to share her records with [facility] [place]. [facility] is working to transfer her there for the higher level of care her end-stage lung disease requires. This was discussed at family care conference; it is unclear if family/patient will support this. RHONDAKY Adams is not returning phone calls. Palliative Care will try to contact her. Time Spent: 40 minutes were spent with more than 50% of the time spent on counseling, education, providing anticipatory guidance, and coordination of care regarding advance care planning.
== END 2019-01-14 10:56 | disposition home or self-care (01) ==
LOC: PC 10:55
PROVIDERS: ATTEND Nurse Practitioner
DX: Z51.5 Encounter for palliative care (principal); J44.9 Chronic obstructive pulmonary disease, unspecified; J84.10 Pulmonary fibrosis, unspecified; R91.8 Other nonspecific abnormal finding of lung field; D49.1 Neoplasm of unspecified behavior of respiratory system; K59.03 Drug induced constipation; T40.2X5D Adverse effect of other opioids, subsequent encounter; R00.0 Tachycardia, unspecified; I10 Essential (primary) hypertension; F41.9 Anxiety disorder, unspecified; Z87.01 Personal history of pneumonia (recurrent); Z79.891 Long term (current) use of opiate analgesic; Z74.01 Bed confinement status; Z99.81 Dependence on supplemental oxygen; Z63.8 Other specified problems related to primary support group; Z79.899 Other long term (current) drug therapy; Z79.51 Long term (current) use of inhaled steroids
CPT/HCPCS: 99310

== ENCOUNTER 2019-01-19 05:50 | Outpatient (CLI) | payer MEDICARE, MEDICAID | END 2019-01-19 05:51 | disposition critical access hospital (66) | LOC: EMS 05:50 | PROVIDERS: ATTEND Surgery | DX: R06.00 Dyspnea, unspecified (principal) | CPT/HCPCS: A0425; A0427 ==

== ENCOUNTER 2019-01-19 05:53 | Inpatient (IN) | payer MEDICARE, MEDICAID ==
[2019-01-19] MEDS ORDERED: SODIUM CHLORIDE 0.9% 1,000 ML IV ONE (06:03)
[2019-01-19] MEDS ORDERED: diltiaZEM INJ 5 MG/ML VIAL IVP STA ×2 (06:03→06:22)
[2019-01-19] MEDS ORDERED: MAGNESIUM SULFATE 1 GM/2 ML VIAL IVP STA (06:09)
[2019-01-19] MEDS ORDERED: IPRATROPIUM/ALBUTEROL 3 ML NEB INH STA (06:10)
--- NOTE | 2019-01-19 06:14 | ED Physician Documentation ---
PD HPI DYSPNEA - Stated complaint Stated Complaint: SOA - Chief complaint Chief Complaint: Resp - History obtained from History obtained from: EMS - History of Present Illness Timing - onset: Enter time (0500), Today Timing - onset during: Rest Timing - duration: Minutes Timing - details: Abrupt onset, Still present Improved by: O2, BiPAP / CPAP, Inhaler/neb Worsened by: Exertion Associated symptoms: Cough, Wheezing Similar symptoms before: Diagnosis (respiratory failure.) Recently seen: Admitted - Additional information Additional information: 68-year-old female with end-stage oxygen and steroid-dependent COPD is now a resident of [facility] and she developed acute shortness of breath this morning she did not respond to her usual dose of 10 mg of morphine and the ambulance was summoned. She is able to speak in one-word sentences she has low oxygen saturation rapid heart rate and marked tachypnea. Review of Systems Unable to obtain: Other (severe respiratory distress) Respiratory: reports: Dyspnea, Cough, Wheezing GI: denies: Vomiting PD PAST MEDICAL HISTORY - Past Medical History Cardiovascular: Hypertension Respiratory: COPD, Pneumonia, Other Neuro: Headaches Endocrine/Autoimmune: None GI: GERD, Cholelithiasis [employer]ER[employer]IST: Other : Frequency HEENT: Chronic sinusitis Psych: Depression, Anxiety Musculoskeletal: Osteoarthritis, Fatigue Derm: None - Past Surgical History Past Surgical History: No General: Cholecystectomy HEENT: Tonsil/Adenoidectomy - Present Medications Home Medications: Ambulatory Orders Medication Instructions Recorded Confirmed Albuterol Sulfate [Proair Hfa 1 puffs INH Q6H PRN 08/31/16 01/19/19 Inhaler] Polyethylene Glycol 3350 [Miralax] 17 g PO DAILY 10/19/18 01/14/19 Albuterol 2.5 mg INH Q4H PRN 11/19/18 01/19/19 Atorvastatin Calcium 20 mg PO QPM 12/10/18 01/14/19 Budesonide [Pulmicort] 0.5 mg INH RTBID neb 12/12/18 01/14/19 Sertraline [Zoloft] 50 mg PO DAILY #0 tablet 12/12/18 01/19/19 dilTIAZem HCl [Diltiazem 24Hr ER] 120 mg PO DAILY #0 12/12/18 01/14/19 Insulin Lispro [Humalog Kwikpen 1 - 10 unit SQ ACHS MDD sliding 12/13/18 01/14/19 U-100] scale Morphine Sulfate [Morphine Sulf 5 mg PO TID 12/13/18 01/14/19 Oral (Roxanol)] Furosemide [Lasix] 40 mg PO DAILY #30 tablet 01/01/19 01/19/19 Montelukast [Singulair] 10 mg PO QPM #30 tablet 01/01/19 01/14/19 Tamsulosin [Flomax] 0.4 mg PO DAILY #30 capsule 01/01/19 01/19/19 acetaZOLAMIDE [Diamox] 250 mg PO BID #60 tablet 01/01/19 01/19/19 guaiFENesin [Mucinex] 600 mg PO BID #14 tablet 01/01/19 01/14/19 Morphine Sulfate [Morphine Sulf 10 mg PO Q2H PRN #30 ml 01/05/19 01/14/19 Oral (Roxanol)] predniSONE [Deltasone] 20 mg PO DAILY MDD Start date 01/14/19 01/14/19 01/16/19 predniSONE [Deltasone] 40 mg PO DAILYWM 01/14/19 01/14/19 - Allergies Allergies/Adverse Reactions: Allergies Allergy/AdvReac Type Severity Reaction Status Date / Time No Known Drug Allergies Allergy Verified 01/19/19 06:03 - Social History Does the pt smoke?: No Smoking Status: Former smoker Does the pt drink ETOH?: Yes Does the pt have substance abuse?: No - Immunizations Immunizations are current?: No Immunizations: TDAP >10years/unknown - POLST Patient has POLST: Yes POLST Status: Full Code PD ED PE NORMAL - Vitals Vital signs reviewed: Yes (tachy, tachypneic hypertensive and hypoxic ) - General General: Well developed/nourished, Other (respiratory distress blank stare and not talking. ) - HEENT HEENT: Atraumatic, PERRL, EOMI, Ears normal, Other (dry mucous membranes ) - Neck Neck: Supple, no meningeal sign, No bony TTP - Cardiac Cardiac: Other (2/6 holosystolic murmer at LSB rapid irregular rate and rhythm) - Respiratory Respiratory: Other (repiratory distress with diminished breath sounds bilat. ) - Abdomen Abdomen: Soft, Non tender - Back Back: No CVA TTP, No spinal TTP - Derm Derm: Normal color, Warm and dry, No rash - Extremities Extremities: No deformity, Other (trace edema ) - Neuro Neuro: No motor deficit, No sensory deficit Eye Opening: Spontaneous Motor: Obeys Commands Verbal: Confused GCS Score: 14 - Psych Psych: Other (mood is withdrawn and the affect is flat. ) Results - Vitals Vitals: Vital Signs - 24 hr 01/19/19 01/19/19 01/19/19 05:59 06:20 06:23 Temperature 373 C H Heart Rate 130 H 125 H 136 H Respiratory 50 H 36 H 36 H Rate Blood Pressure 116/104 H 135/91 H 135/91 H O2 Saturation 44 L 88 L 88 L 01/19/19 01/19/19 01/19/19 06:27 06:28 06:30 Temperature Heart Rate 124 H 109 H 116 H Respiratory 34 H 34 H 28 H Rate Blood Pressure 122/75 O2 Saturation 81 L 91 L 01/19/19 01/19/19 01/19/19 06:35 06:39 06:42 Temperature Heart Rate 144 H 115 H 118 H Respiratory 30 H 25 H 30 H Rate Blood Pressure 132/55 H O2 Saturation 93 01/19/19 01/19/19 01/19/19 06:46 06:48 07:02 Temperature Heart Rate 104 H 108 H 107 H Respiratory 20 27 H 21 Rate Blood Pressure 133/50 H 133/50 H O2 Saturation 95 93 95 Oxygen O2 Source [] Triology unit O2 Source HIGH FLOW OXYGEN CANNULA Oxygen Flow Rate 15 - EKG (time done) 0608 Rate: Rate (enter#) (138) Rhythm: Atrial fibrillation Intervals: RBBB (atypical ) Compare to prior EKG: Changed from prior EKG (SPT 01-04-19 rate has increased rhythm has changed to afib. ) Computer interpretation: Agree with computer - Labs Labs: Laboratory Tests 01/19/19 01/19/19 01/19/19 06:30 06:30 06:30 WBC 14.2 H RBC 3.86 L Hgb 10.9 L Hct 34.4 L MCV 89.4 MCH 28.4 MCHC 31.8 L RDW 18.0 H Plt Count 302 MPV 6.5 L Neut # (Auto) 10.9 H Lymph # (Auto) 2.8 [place] # (Auto) 0.4 Eos # (Auto) 0.0 Baso # (Auto) 0.1 Absolute Nucleated RBC 0.01 Nucleated RBC % 0.0 Sodium 134 L Potassium 2.7 L Chloride 88 L Carbon Dioxide 33 H Anion Gap 13.0 BUN 18 Creatinine 0.3 L Estimated GFR (MDRD) 221 Glucose 151 H Lactic Acid Calcium 8.5 Total Bilirubin 1.2 H AST 17 ALT 19 Alkaline Phosphatase 65 Troponin I < 0.04 B-Natriuretic Peptide Total Protein 6.4 L Albumin 3.3 Globulin 3.1 Albumin/Globulin Ratio 1.1 Lipase 26 01/19/19 01/19/19 06:30 06:30 WBC RBC Hgb Hct MCV MCH MCHC RDW Plt Count MPV Neut # (Auto) Lymph # (Auto) [place] # (Auto) Eos # (Auto) Baso # (Auto) Absolute Nucleated RBC Nucleated RBC % Sodium Potassium Chloride Carbon Dioxide Anion Gap BUN Creatinine Estimated GFR (MDRD) Glucose Lactic Acid 3.4 H* Calcium Total Bilirubin AST ALT Alkaline Phosphatase Troponin I B-Natriuretic Peptide 76 Total Protein Albumin Globulin Albumin/Globulin Ratio Lipase - Rads (name of study) chest 1 veiw Radiology: Prelim report reviewed (1. New bibasilar airspace disease, right greater than left. This may be from infection. 2 Stable indistinct right apical pleural and parenchymal abnormality, probably scarring. Concurrent infection or occasional neoplasm difficult to exclude. Follow-up noncontrast CT recommended at 3 months. ), EMP read indepedently, See rad report Procedures - IVC sono (time) 0610 Bedside IVC sono: IVC measures (cm) (1.07), IVC collapsed c insp (cm) (complete), Dehydration (est 1 liter deficit) PD MEDICAL DECISION MAKING - ED course Complexity details: reviewed old records, reviewed results, re-evaluated patient, considered differential, d/w patient ED course: 68-year-old female with end-stage COPD who is oxygen and steroid-dependent has arrived to the emergency department in acute respiratory failure. She arrives with a oxygen saturation in the 40-70 range she is tachypneic breathing 60 times a minute and she is tachycardic with heart rate of 138. She appears to be in atrial fibrillation with RVR. The patient is found to be dehydrated on interrogation of the inferior vena cava and intravenous saline is begun as well as intravenous magnesium and Solu- Medrol. She is given 20 mg of diltiazem intravenously with reduction of her heart rate into the 110 range she is subtotally given 25 mg more and she converts into a sinus rhythm heart rate comes down under 100. The patient's color improved oxygen saturation increases to 90% and a chest x- ray reveals a right lower lobe infiltrate. She is administered vancomycin and cefepime for health care-acquired pneumonia. Departure - Departure Disposition: 66 [facility] DC/Xfer Clinical Impression: End stage COPD, Hypokalemia Pneumonia Qualifiers: Pneumonia type: due to unspecified organism Laterality: right Lung location: lower lobe of lung Qualified Code(s): J18.1 - Lobar pneumonia, unspecified organism
[2019-01-19] MEDS ORDERED: methylPREDNISolone SUCCINATE 125 MG/2 ML VIAL IVP STA (06:16)
[2019-01-19] MEDS ORDERED: MAGNESIUM SULFATE 2 GRAM 2 GM/50 ML BAG IV ONE (06:23)
[2019-01-19 06:38] LABS: BASOPHILS # (AUTO) 0.1 10^3/uL (0.0-0.1); BASOPHILS % (AUTO) 0.5 %; EOSINOPHILS % (AUTO) 0.2 %; HGB - HEMOGLOBIN 10.9 g/dL (12.0-16.0); LYMPHOCYTES # (AUTO) 2.8 10^3/uL (1.5-3.5); LYMPHOCYTES % (AUTO) 19.7 %; MEAN CORPUSCULAR HEMOGLOBIN 28.4 pg (27.0-31.0); MEAN CORPUSCULAR HGB CONC 31.8 g/dL (32.0-36.0); MEAN CORPUSCULAR VOLUME 89.4 fL (81.0-99.0); MEAN PLATELET VOLUME 6.5 fL (7.9-10.8); MONOCYTES # (AUTO) 0.4 10^3/uL (0.0-1.0); MONOCYTES % (AUTO) 2.6 %; NEUTROPHILS # (AUTO) 10.9 10^3/uL (1.5-6.6); PLT - PLATELET COUNT 302 10^3/uL (130-450); RED BLOOD COUNT 3.86 10^6/uL (4.20-5.40); WHITE BLOOD COUNT 14.2 x10^3/uL (4.8-10.8)
[2019-01-19 06:51] LABS: ALBUMIN 3.3 g/dL (3.2-5.5); ALBUMIN/GLOBULIN RATIO 1.1 (1.0-2.2); BILIRUBIN,TOTAL 1.2 mg/dL (0.2-1.0); CALCIUM 8.5 mg/dL (8.5-10.3); CREATININE 0.3 mg/dL (0.4-1.0); TOTAL PROTEIN 6.4 g/dL (6.7-8.2)
[2019-01-19] MEDS ORDERED: VANCOMYCIN INJ 1 GM in SODIUM CHLORIDE 0.9% 500 ML IV STA (06:52)
--- NOTE | 2019-01-19 06:52 | XRAY Report ---
Reason: chest pain Procedure Date: 01/19/2019 Accession Number: [id number] / [id number] Procedure: XR - Chest 1 View X-Ray CPT Code: 24566 FULL RESULT: EXAM: CHEST RADIOGRAPHY EXAM DATE: 01/19/2019 06:41 AM. CLINICAL HISTORY: Awoke with chest pain and rapid heart rate as well as shortness of breath. COMPARISON: CHEST 1 VIEW 01/04/2019 4:11 PM CHEST 1 VIEW 12/26/2018 8:46 AM CHEST 1 VIEW 12/09/2018 8:44 PM CHEST 1 VIEW 11/19/2018 1:12 PM CHEST W/ 10/02/2018 11:34 AM. TECHNIQUE: 1 view. FINDINGS: Lungs/Pleura: Increased opacity noted within the right lung base region, with a patchy configuration. Small streaky left lung base opacity also demonstrates increased density from the prior exam. Upper lobe predominant emphysematous changes are seen. There is also right apical pleural and parenchymal abnormality, chronic from the prior studies. This is probably secondary to scarring. Superimposed acute additional airspace disease difficult to exclude. As visualized no definite pneumothorax or large effusion. Mediastinum: Normal heart size when accounting for lung volumes and technique. Moderate calcific aortic atherosclerosis. Other: None. IMPRESSION: 1. New bibasilar airspace disease, right greater than left. This may be from infection. 2. Stable indistinct right apical pleural and parenchymal abnormality, probably scarring. Concurrent infection or occasional neoplasm difficult to exclude. Follow-up noncontrast chest CT recommended that 3 months. RADIA
[2019-01-19] MEDS ORDERED: CEFEPIME 1 GM in SODIUM CHLORIDE 0.9% MINIBAG 100 ML IV STA (06:53)
[2019-01-19] MEDS ORDERED: POTASSIUM BICARB 25 MEQ TABLET PO STA (07:22)
[2019-01-19] MEDS ORDERED: PROCHLORPERAZINE 10 MG/2 ML VIAL IVP PRN (08:22)
[2019-01-19] MEDS ORDERED: IPRATROPIUM 0.2 MG/ML NEB INH PRN (08:22)
[2019-01-19] MEDS ORDERED: ACETAMINOPHEN 325 MG TABLET PO PRN (08:22)
[2019-01-19] MEDS ORDERED: IBUPROFEN 600 MG TABLET PO PRN (08:22)
[2019-01-19] MEDS ORDERED: VANCOMYCIN PER PHARMACY 10 GM in SODIUM CHLORIDE 0.9% 250 ML IV STA (08:40)
[2019-01-19 09:01] LABS: INR 1.2 (0.8-1.2); PT - PROTHROMBIN TIME 13.8 secs (9.9-12.6)
[2019-01-19] MEDS ORDERED: SODIUM CHLORIDE FLUSH 0.9% 10 ML SYRINGE ONE (09:05)
[2019-01-19] MEDS: SODIUM CHLORIDE FLUSH 0.9% 10 ML SYRINGE IVP SCH ×3 (09:20→21:07)
[2019-01-19 10:15] LABS: HB2 TOTAL 10.5 g/dL; HEMOGLOBIN A1C 0.46 g/dL; HEMOGLOBIN A1C % 6.2 % (4.6-6.2)
[2019-01-19] MEDS: ALBUTEROL NEB 2.5 MG/3 ML INH PRN ×3 (10:17→18:10)
[2019-01-19] MEDS: SERTRALINE 50 MG TABLET PO SCH (10:37)
[2019-01-19] MEDS: MORPHINE SOL 10 MG/0.5 ML SYRINGE PO SCH ×3 (10:38→21:10)
[2019-01-19] MEDS: FAMOTIDINE 20 MG TABLET PO SCH ×2 (10:38→21:05)
[2019-01-19] MEDS: TAMSULOSIN 0.4 MG CAPSULE PO SCH (10:38)
[2019-01-19] MEDS: guaiFENesin 600 MG TABLET PO SCH ×2 (10:41→21:05)
[2019-01-19] MEDS: ENOXAPARIN 40 MG/0.4 ML SYRINGE SUBQ SCH (10:41)
[2019-01-19] MEDS: diltiaZEM CD 120 MG CAPSULE PO SCH (10:41)
[2019-01-19] MEDS ORDERED: SODIUM CHLORIDE 0.9% 500 ML IV ONE (11:44)
[2019-01-19] MEDS: acetaZOLAMIDE 250 MG TABLET PO SCH ×2 (11:44→21:06)
[2019-01-19] MEDS: INSULIN ASPART 300 UNIT/3 ML PEN SUBQ SCH ×3 (11:48→21:07)
[2019-01-19 11:59] LABS: MAGNESIUM 2.4 mg/dL (1.7-2.8); PHOSPHORUS 3.3 mg/dL (2.5-4.6)
[2019-01-19] MEDS ORDERED: POTASSIUM CHLORIDE 20 MEQ TABLET PO SCH (12:37)
[2019-01-19] MEDS: FUROSEMIDE 40 MG TABLET PO SCH (12:44)
--- NOTE | 2019-01-19 12:44 | XRAY Report ---
Reason: F/U infiltrates Procedure Date: 01/19/2019 Accession Number: [id number] / [id number] Procedure: XR - Chest 1 View X-Ray CPT Code: 92117 FULL RESULT: EXAM: CHEST RADIOGRAPHY EXAM DATE: 01/19/2019 09:02 AM. CLINICAL HISTORY: F/U infiltrates. COMPARISON: CHEST 1 VIEW 01/19/2019 6:27 AM CHEST W/ 10/02/2018 11:34 AM CHEST 1 VIEW 01/04/2019 4:11 PM. TECHNIQUE: 1 view. FINDINGS: Lungs/Pleura: Similar patchy right lung base opacity. Slightly improved aeration at the left lung base. Similar somewhat nodular peripheral right apical pleural-parenchymal opacity. Mediastinum: Heart size is normal. Aortic calcifications are present. There is Other: None. IMPRESSION: 1. Similar right basal opacity, may reflect pneumonia. Slightly improved aeration at the left lung base. 2. Similar somewhat nodular peripheral right apical pleural-parenchymal opacity. Follow-up with CT as previously recommended. RADIA
[2019-01-19] MEDS: methylPREDNISolone SUCCINATE 40 MG/ML VIAL IVP SCH ×3 (12:45→23:40)
[2019-01-19] MEDS: SODIUM CHLORIDE FLUSH 0.9% 10 ML SYRINGE IVP PRN ×2 (12:45→23:40)
[2019-01-19] MEDS ORDERED: VANCOMYCIN 1 GM VIAL ONE (15:24)
[2019-01-19 15:26] LABS: BILIRUBIN,URINE NEGATIVE (NEGATIVE); GLUCOSE, URINE (UA) NEGATIVE (NEGATIVE); KETONES,URINE (UA) NEGATIVE (NEGATIVE); LEUKOCYTE ESTERASE, URINE NEGATIVE (NEGATIVE); NITRITE,URINE NEGATIVE (NEGATIVE); OCCULT BLOOD,URINE NEGATIVE (NEGATIVE); PROTEIN,URINE TRACE mg/dL (NEGATIVE); UROBILINOGEN,URINE 1 (NORMAL) E.U./dL (NORMAL)
[2019-01-19] MEDS: CEFEPIME 2 GM in SODIUM CHLORIDE 0.9% MINIBAG 100 ML IV SCH ×2 (15:41→23:41)
[2019-01-19 15:53] LABS: CLARITY,URINE CLEAR (CLEAR)
[2019-01-19] MEDS: VANCOMYCIN INJ 1 GM, VANCOMYCIN INJ 250 MG in SODIUM CHLORIDE 0.9% 250 ML IV SCH (16:38)
[2019-01-19] MEDS: BUDESONIDE 0.5 MG/2 ML NEB INH SCH (19:46)
[2019-01-19] MEDS: MONTELUKAST 10 MG TABLET PO SCH (21:05)
[2019-01-19] MEDS: ATORVASTATIN 10 MG TABLET PO SCH (21:06)
--- NOTE | 2019-01-19 22:26 | HISTORY & PHYSICAL EXAMINATION ---
DATE OF SERVICE: 01/19/2019 Physician: Shannan Carolina MD HISTORY OF PRESENT ILLNESS: This is a 68-year-old white female with a history of severe COPD, oxygen dependent, steroid dependent and bedridden because of her obesity and severe dyspnea even at rest. She has had multiple admissions here, nearly once a month for COPD exacerbation. She wants to have full aggressive management and has been asked about comfort care, palliative care and DNR status and declines these. She has been on BiPAP previously, but there have been no admissions needing ventilator support. Two admissions ago, the patient was discharged not to her home but placed in [facility] for attempts at rehab and she has now become a resident there. There was an admission from [facility] about three weeks ago for the same complaints of dyspnea, it was noted that her morphine had been discontinued, which was restarted and she stabilized. Over the previous three days, she has had slowly worsening shortness of breath and a cough and this morning she woke up severely short of breath and feeling her heart racing. She was given the morphine at [facility], but this did not help and an ambulance was called and she was brought to the emergency room. She did have pursed lip breathing, was wheezing and speaking in one-word sentences. She received IV steroids and a nebulizer treatment and had some improvement. She was being admitted to the ICU for a recurrence of her COPD exacerbation and worsening infiltrates by chest x-ray. PAST MEDICAL HISTORY 1. Borderline diabetes. 2. Obesity. 3. End-stage COPD on oxygen, a Trilogy mask and steroids. 4. Anxiety and depression. 5. GERD. 6. Osteoarthritis. 7. Extreme muscle deconditioning. 8. Lung mass, possible cancer. MEDICATIONS 1. ProAir HFA 2. MiraLax. 3. Albuterol. 4. Lipitor 20 mg q.p.m. 5. Pulmicort. 6. Zoloft 50 mg daily. 7. Diltiazem ER 120 mg daily. 8. Insulin lispro on a sliding scale. 9. Morphine sulfate 5 mg p.o. t.i.d. 10. Lasix 40 mg daily. 11. Singulair 10 mg every night. 12. Flomax 0.4 mg daily. 13. Diamox 250 mg b.i.d. 14. Mucinex 600 mg b.i.d. 15. Morphine sulfate 10 mg every 2 hours p.r.n. dyspnea or anxiety. 16. Prednisone 20 mg daily after decreasing from 40 mg daily at the last discharge. ALLERGIES: NONE. SOCIAL HISTORY: The patient no longer smokes, drinks no alcohol, has never used illicit drugs. FAMILY HISTORY: No inherited diseases. REVIEW OF SYSTEMS: A comprehensive review of systems was performed and the pertinent positives are listed above, the rest are negative. PHYSICAL EXAMINATION GENERAL: This is an obese female. She is still exhibiting pursed lip breathing and gives me one-word answers between her breaths. There is no audible wheezing. VITAL SIGNS: Blood pressure 130/50, heart rate 90-107 in sinus tachycardia. Her saturation is 90% on a 9 liter OxyMask. HEENT: The OxyMask is on, she has mouth breathing, she has moist oral mucosa. NECK: Obese, I cannot rule out JVD. LUNGS: Has diffusely diminished breath sounds, but no wheezes, rales or rhonchi. HEART: Sounds are distant, tachycardic. Breasts are large and pendulous. ABDOMEN: Obese with a pannus. I cannot rule out organomegaly. EXTREMITIES: No clubbing, cyanosis, or edema. NEUROLOGIC: Intact grossly. LABORATORY DATA: Lactic acid 3.4. Sodium 134, potassium 2.7, BUN 18, creatinine 0.3, glucose 151, A1c 6.2, bilirubin 1.2. Troponin not detectable. BNP normal at 76. INR 1.2. White blood count 14.2, hemoglobin 10.9, platelet count 302. Serology was negative for MRSA. Urinalysis had a pH of 8, trace protein, negative leukocyte esterase and nitrite. CHEST X-RAY: Worsening bilateral basal infiltrates and significant apical emphysema is seen. EKG: Motion artifact of the baseline, and the computer read it as atrial fibrillation with a rapid rate. Repeat EKG was done when she was more at rest and this showed sinus tachycardia with PACs. There are no acute ST or T changes. IMPRESSION/DIAGNOSES 1. Severe sepsis. 2. Acute respiratory failure with hypoxia. 3. Healthcare-acquired pneumonia. 4. Chronic obstructive pulmonary disease with acute exacerbation. 5. Pulmonary fibrosis. 6. Obesity (BMI 31). 7. Severe muscle deconditioning. 8. Chronic anemia. 9. Pulmonary hypertension. 10. Hypertension. 11. Lung mass. 12. Borderline diabetes. 13. Depression and anxiety. PLAN: Admit the patient to the ICU on telemetry. Continue with her medications prehospital. Begin treatment for HCAP using IV antibiotics, obtain a blood culture and sputum cultures. Check the lactic acid level in 3 hours and start a sepsis bundle. Supplemental oxygen titrated as needed, she may require BiPAP. DEEP VENOUS THROMBOSIS PROPHYLAXIS: Lovenox. CODE STATUS: FULL CODE. ATTESTATION: The patient is expected to be discharged or transferred to another facility within 96 hours: Yes. TD: 01/19/2019 17:15 AMOL
[2019-01-20] MEDS: MORPHINE SOL 10 MG/0.5 ML SYRINGE PO PRN ×4 (03:31→18:49)
[2019-01-20] MEDS: VANCOMYCIN INJ 1 GM, VANCOMYCIN INJ 250 MG in SODIUM CHLORIDE 0.9% 250 ML IV SCH ×2 (03:39→16:39)
[2019-01-20] MEDS: ALBUTEROL NEB 2.5 MG/3 ML INH PRN ×5 (03:58→22:28)
[2019-01-20 04:12] LABS: BASOPHILS % (AUTO) 0.2 %; HGB - HEMOGLOBIN 9.3 g/dL (12.0-16.0); LYMPHOCYTES # (AUTO) 0.4 10^3/uL (1.5-3.5); LYMPHOCYTES % (AUTO) 3.7 %; MEAN PLATELET VOLUME 6.6 fL (7.9-10.8); MONOCYTES # (AUTO) 0.5 10^3/uL (0.0-1.0); MONOCYTES % (AUTO) 4.2 %; NEUTROPHILS # (AUTO) 10.3 10^3/uL (1.5-6.6); NEUTROPHILS % (AUTO) 91.9 %; PLT - PLATELET COUNT 230 10^3/uL (130-450); RED BLOOD COUNT 3.21 10^6/uL (4.20-5.40); RED CELL DISTRIBUTION WIDTH 18.4 % (12.0-15.0); WHITE BLOOD COUNT 11.2 x10^3/uL (4.8-10.8)
[2019-01-20 04:22] LABS: CALCIUM 8.5 mg/dL (8.5-10.3); CREATININE 0.4 mg/dL (0.4-1.0); MAGNESIUM 2.2 mg/dL (1.7-2.8); PHOSPHORUS 3.5 mg/dL (2.5-4.6)
[2019-01-20] MEDS: methylPREDNISolone SUCCINATE 40 MG/ML VIAL IVP SCH ×4 (06:40→23:27)
[2019-01-20] MEDS: MORPHINE SOL 10 MG/0.5 ML SYRINGE PO SCH ×3 (06:40→21:49)
[2019-01-20] MEDS: SODIUM CHLORIDE FLUSH 0.9% 10 ML SYRINGE IVP SCH ×3 (07:59→23:27)
[2019-01-20] MEDS: CEFEPIME 2 GM in SODIUM CHLORIDE 0.9% MINIBAG 100 ML IV SCH ×3 (07:59→23:27)
[2019-01-20] MEDS: acetaZOLAMIDE 250 MG TABLET PO SCH ×2 (08:09→21:48)
[2019-01-20] MEDS: FUROSEMIDE 40 MG TABLET PO SCH (08:10)
[2019-01-20] MEDS: guaiFENesin 600 MG TABLET PO SCH ×2 (08:10→21:48)
[2019-01-20] MEDS: INSULIN ASPART 300 UNIT/3 ML PEN SUBQ SCH ×4 (08:14→21:46)
[2019-01-20] MEDS: ENOXAPARIN 40 MG/0.4 ML SYRINGE SUBQ SCH (08:15)
[2019-01-20] MEDS: diltiaZEM CD 120 MG CAPSULE PO SCH (08:19)
[2019-01-20] MEDS: SERTRALINE 50 MG TABLET PO SCH (08:19)
[2019-01-20] MEDS: TAMSULOSIN 0.4 MG CAPSULE PO SCH (08:20)
[2019-01-20] MEDS: FAMOTIDINE 20 MG TABLET PO SCH ×2 (08:20→21:48)
[2019-01-20] MEDS: BUDESONIDE 0.5 MG/2 ML NEB INH SCH ×2 (08:28→19:42)
[2019-01-20] MEDS ORDERED: POLYETHYLENE GLYCOL 3350 17 GM PACKET PO SCH (09:00)
[2019-01-20] MEDS: POLYETHYLENE GLYCOL 3350 17 GM PACKET PO SCH (09:43)
--- NOTE | 2019-01-20 12:18 | PROVIDER PROGRESS NOTE ---
Assessment/Plan - Problem List (1) HCAP (healthcare-associated pneumonia) Assessment/Plan: Continue empiric iv antibiotics and Florastor. Await sputum and blood cultures. (2) Acute exacerbation of chronic obstructive pulmonary disease (COPD) Assessment/Plan: Continue iv steroids, nebs, O2 supplemental, po Morphine scheduled and additional prn dyspnea. Oxygen supplemental, Oximizer and Trilogy mask, per RT. If no BIPAP need, can move out of ICU. (3) Chronic anemia Assessment/Plan: Continue replacement (4) Essential (primary) hypertension Assessment/Plan: Continue meds for BP control (5) Hypertension Qualifiers: Hypertension type: essential hypertension Qualified Code(s): I10 - Essential (primary) hypertension (6) Lactic acidosis Assessment/Plan: Resolved (7) IDDM (insulin dependent diabetes mellitus) Assessment/Plan: Continue carb- controlled diet, fingerstick chcks and ss Insulin. - Current Meds Current Meds: Current Medications Generic Name Dose Route Start Last Admin Trade Name Freq PRN Reason Stop Dose Admin Acetazolamide 250 mg 01/19/19 09:00 01/20/19 08:09 Diamox PO 250 mg BID TERRY Administration Albuterol 2.5 mg 01/19/19 08:22 01/20/19 08:28 INH 2.5 mg RTQ4H PRN Administration Wheezing Atorvastatin Calcium 20 mg 01/19/19 21:00 01/19/19 21:06 Lipitor PO 20 mg QPM TERRY Administration Budesonide 0.5 mg 01/19/19 19:00 01/20/19 08:28 Pulmicort INH 0.5 mg RTBID TERRY Administration Diltiazem HCl 120 mg 01/19/19 09:00 01/20/19 08:19 Cardizem Cd PO 120 mg DAILY TERRY Administration Enoxaparin Sodium 40 mg 01/19/19 09:00 01/20/19 08:15 Lovenox SUBQ 40 mg DAILY TERRY Administration Famotidine 20 mg 01/19/19 09:00 01/20/19 08:20 Pepcid PO 20 mg BID TERRY Administration Furosemide 40 mg 01/19/19 09:00 01/20/19 08:10 Lasix PO 40 mg DAILY TERRY Administration Guaifenesin 600 mg 01/19/19 09:00 01/20/19 08:10 Mucinex PO 600 mg BID TERRY Administration Cefepime HCl 2 gm/ Sodium 100 mls @ 200 mls/hr 01/19/19 16:00 01/20/19 07:59 Chloride IV 200 mls/hr Q8H TERRY Administration Vancomycin HCl 1 gm/ 250 mls @ 167 mls/hr 01/19/19 16:00 01/20/19 05:10 Vancomycin HCl 250 mg/ Sodium IV Infused Chloride Q12H TERRY Infusion Insulin Aspart 1 - 9 unit 01/19/19 12:00 01/20/19 08:14 Novolog SUBQ 1 unit 0800,1200,1700,2100 TERRY Administration Protocol Ipratropium [place] 0.5 mg 01/19/19 08:22 01/19/19 10:17 Atrovent INH 0.5 mg RTQ6H PRN Administration Wheezing Methylprednisolone 40 mg 01/19/19 12:00 01/19/19 23:40 Solu-Medrol (40mg Vial) IVP 40 mg Q6HR TERRY Administration Montelukast Sodium 10 mg 01/19/19 21:00 01/19/19 21:05 Singulair PO 10 mg QPM TERRY Administration Morphine Sulfate 5 mg 01/19/19 09:00 01/19/19 21:10 Roxanol PO 5 mg TID TERRY Administration Morphine Sulfate 10 mg 01/19/19 08:44 01/20/19 10:54 Roxanol PO 10 mg Q2H PRN Administration Pain/Dyspnea Polyethylene Glycol 17 gm 01/20/19 10:00 01/20/19 09:43 Miralax PO 17 gm DAILY TERRY Administration Sertraline HCl 50 mg 01/19/19 09:00 01/20/19 08:19 Zoloft PO 50 mg DAILY TERRY Administration Sodium Chloride 10 ml 01/19/19 09:00 01/20/19 07:59 Normal Saline Flush 0.9% IVP 10 ml 0100,0900,1700 TERRY Administration Sodium Chloride 10 ml 01/19/19 08:22 01/19/19 23:40 Normal Saline Flush 0.9% IVP 10 ml PRN PRN Administration NEEDED PER PROVIDER ORDERS Tamsulosin HCl 0.4 mg 01/19/19 09:00 01/20/19 08:20 Flomax PO 0.4 mg DAILY TERRY Administration - Lab Result Fish Bone Diagrams: 01/20/19 04:04 01/20/19 04:04 - Additional Planning My Orders: My Active Orders 01/19/19 12:00 Insulin Aspart [NovoLOG] 1 - 9 unit SUBQ 0800,1200,1700,2100 methylPREDNISolone SUCCINATE [SOLU-Medrol (40MG VIAL)] 40 mg IVP Q6HR 01/19/19 16:00 Cefepime 2 gm Sodium Chloride 0.9% Minibag [Normal Saline 0.9% Minibag] 100 ml IV Q8H Vancomycin Inj [Vancomycin] 1 gm Vancomycin Inj 250 mg Sodium Chloride 0.9% [Normal Saline 0.9%] 250 ml IV Q12H 01/19/19 18:00 CUL, RESPIRATORY [RM] Routine 01/19/19 19:00 Budesonide [Pulmicort] 0.5 mg INH RTBID 01/19/19 21:00 Atorvastatin [Lipitor] 20 mg PO QPM Montelukast [Singulair] 10 mg PO QPM 01/20/19 10:00 Polyethylene Glycol 3350 [Miralax] 17 gm PO DAILY 01/20/19 15:30 VANCOMYCIN TROUGH [CHEM] Timed 01/21/19 05:00 BMP - BASIC METABOLIC PANEL [CHEM] DAILYLAB CBC - COMP BLD CT W/AUTO DIFF [HEME] DAILYLAB 01/22/19 05:00 BMP - BASIC METABOLIC PANEL [CHEM] DAILYLAB CBC - COMP BLD CT W/AUTO DIFF [HEME] DAILYLAB 01/23/19 05:00 BMP - BASIC METABOLIC PANEL [CHEM] DAILYLAB CBC - COMP BLD CT W/AUTO DIFF [HEME] DAILYLAB Subjective - Subjective Patient Reports: Feeling Better, Resting Comfortably Objective Vital Signs: Vital Signs - 24 hr 01/19/19 01/19/19 01/19/19 12:52 13:00 13:10 Temperature 36.7 C 36.8 C Heart Rate 90 Heart Rate [ 81 89 Monitoring electrodes] Respiratory 16 21 20 Rate Blood Pressure 122/56 L 124/64 [Right Brachial artery] O2 Saturation 96 96 01/19/19 01/19/19 01/19/19 14:24 15:00 16:24 Temperature 36 C L 36.9 C Heart Rate Heart Rate [ 86 76 73 Monitoring electrodes] Respiratory 20 18 15 Rate Blood Pressure 100/55 L 110/53 L 108/52 L [Right Brachial artery] O2 Saturation 97 99 100 01/19/19 01/19/19 01/19/19 17:00 18:00 18:10 Temperature Heart Rate 88 Heart Rate [ 82 90 Monitoring electrodes] Respiratory 17 18 21 Rate Blood Pressure 93/37 L 108/67 [Right Brachial artery] O2 Saturation 100 96 01/19/19 01/19/19 01/19/19 19:00 19:47 20:00 Temperature 36.6 C Heart Rate 79 Heart Rate [ 75 74 Monitoring electrodes] Respiratory 19 18 16 Rate Blood Pressure 103/57 L 108/54 L [Right Brachial artery] O2 Saturation 97 98 01/19/19 01/19/19 01/19/19 21:00 22:00 23:00 Temperature Heart Rate Heart Rate [ 76 85 75 Monitoring electrodes] Respiratory 17 22 14 Rate Blood Pressure 117/72 122/54 L 96/49 L [Right Brachial artery] O2 Saturation 98 95 97 01/19/19 01/20/19 01/20/19 23:50 00:00 01:00 Temperature 36.7 C Heart Rate 73 Heart Rate [ 69 Monitoring electrodes] Respiratory 15 16 Rate Blood Pressure 100/50 L [Right Brachial artery] O2 Saturation 95 01/20/19 01/20/19 01/20/19 02:00 03:00 03:45 Temperature 36.7 C Heart Rate Heart Rate [ 70 69 Monitoring electrodes] Respiratory 15 15 Rate Blood Pressure 106/56 L 108/52 L [Right Brachial artery] O2 Saturation 94 95 01/20/19 01/20/19 01/20/19 03:58 04:00 05:00 Temperature Heart Rate 80 Heart Rate [ 81 73 Monitoring electrodes] Respiratory 19 17 16 Rate Blood Pressure 94/69 98/50 L [Right Brachial artery] O2 Saturation 94 95 01/20/19 01/20/19 01/20/19 06:00 07:00 08:00 Temperature 36 C L Heart Rate Heart Rate [ 70 69 95 Monitoring electrodes] Respiratory 14 18 20 Rate Blood Pressure 107/48 L 118/52 L 130/55 L [Right Brachial artery] O2 Saturation 96 95 93 01/20/19 09:00 Temperature 36 C L Heart Rate Heart Rate [ 75 Monitoring electrodes] Respiratory 20 Rate Blood Pressure 107/46 L [Right Brachial artery] O2 Saturation 95 Oxygen O2 Source [With Activity] Triology unit O2 Source HFNC 40% FiO2 Oxygen Flow Rate 15 I&O (Last 24 Hrs): Intake and Output Totals x24h 01/18/19 01/19/19 01/20/19 23:59 23:59 23:59 Intake Total 2600 1090 Output Total 725 300 Balance 1875 790 General: Alert, Oriented x3 HEENT: Mucous membr. moist/pink, Other (Wearing oximizer in nares) Neck: Other (Obese) Neuro: Non Focal Cardiovascular: Regular rate, No murmurs Respiratory: No respiratory distress, Other (Diffusely poor air movement, no wheezing) Abdomen: Soft, Other (Obese with pannus) Extremities: No edema - Results Results: Laboratory Results WBC 11.2 x10^3/uL (4.8-10.8) H 01/20/19 04:04 RBC 3.21 10^6/uL (4.20-5.40) L 01/20/19 04:04 Hgb 9.3 g/dL (12.0-16.0) L 01/20/19 04:04 Hct 28.2 % (37.0-47.0) L 01/20/19 04:04 MCV 88.0 fL (81.0-99.0) 01/20/19 04:04 MCH 29.0 pg (27.0-31.0) 01/20/19 04:04 MCHC 33.0 g/dL (32.0-36.0) 01/20/19 04:04 RDW 18.4 % (12.0-15.0) H 01/20/19 04:04 Plt Count 230 10^3/uL (130-450) 01/20/19 04:04 MPV 6.6 fL (7.9-10.8) L 01/20/19 04:04 Neut # (Auto) 10.3 10^3/uL (1.5-6.6) H 01/20/19 04:04 Lymph # (Auto) 0.4 10^3/uL (1.5-3.5) L 01/20/19 04:04 [place] # (Auto) 0.5 10^3/uL (0.0-1.0) 01/20/19 04:04 Eos # (Auto) 0.0 10^3/uL (0.0-0.7) 01/20/19 04:04 Baso # (Auto) 0.0 10^3/uL (0.0-0.1) 01/20/19 04:04 Absolute Nucleated RBC 0.01 x10^3/uL 01/20/19 04:04 Nucleated RBC % 0.0 /100WBC 01/20/19 04:04 PT 13.8 secs (9.9-12.6) H 01/19/19 06:30 INR 1.2 (0.8-1.2) 01/19/19 06:30 Sodium 137 mmol/L (135-145) 01/20/19 04:04 Potassium 3.6 mmol/L (3.5-5.0) 01/20/19 04:04 Chloride 98 mmol/L (101-111) L 01/20/19 04:04 Carbon Dioxide 32 mmol/L (21-32) 01/20/19 04:04 Anion Gap 7.0 (6-13) 01/20/19 04:04 BUN 18 mg/dL (6-20) 01/20/19 04:04 Creatinine 0.4 mg/dL (0.4-1.0) 01/20/19 04:04 Estimated GFR (MDRD) 159 (>89) 01/20/19 04:04 Glucose 166 mg/dL (70-100) H 01/20/19 04:04 POC Whole Bld Glucose 160 mg/dL (70 - 100) H 01/20/19 07:55 Glycated Hemoglobin 6.2 % (4.6-6.2) 01/19/19 06:30 Estim Average Glucose 131 (70-100) H 01/19/19 06:30 Lactic Acid 1.9 mmol/L (0.5-2.2) 01/19/19 09:30 Calcium 8.5 mg/dL (8.5-10.3) 01/20/19 04:04 Phosphorus 3.5 mg/dL (2.5-4.6) 01/20/19 04:04 Magnesium 2.2 mg/dL (1.7-2.8) 01/20/19 04:04 Total Bilirubin 1.2 mg/dL (0.2-1.0) H 01/19/19 06:30 AST 17 IU/L (10-42) 01/19/19 06:30 ALT 19 IU/L (10-60) 01/19/19 06:30 Alkaline Phosphatase 65 IU/L (42-121) 01/19/19 06:30 Troponin I < 0.04 ng/mL (<0.49) 01/19/19 06:30 B-Natriuretic Peptide 76 pg/mL (5-100) 01/19/19 06:30 Total Protein 6.4 g/dL (6.7-8.2) L 01/19/19 06:30 Albumin 3.3 g/dL (3.2-5.5) 01/19/19 06:30 Globulin 3.1 g/dL (2.1-4.2) 01/19/19 06:30 Albumin/Globulin Ratio 1.1 (1.0-2.2) 01/19/19 06:30 Lipase 26 U/L (22-51) 01/19/19 06:30 Urine Color YELLOW 01/19/19 14:30 Urine Clarity CLEAR (CLEAR) 01/19/19 14:30 Urine pH 8.0 PH (5.0-7.5) H 01/19/19 14:30 Ur Specific [place] 1.015 (1.002-1.030) 01/19/19 14:30 Urine Protein TRACE mg/dL (NEGATIVE) 01/19/19 14:30 Urine Glucose (UA) NEGATIVE mg/dL (NEGATIVE) 01/19/19 14:30 Urine Ketones NEGATIVE mg/dL (NEGATIVE) 01/19/19 14:30 Urine Occult Blood NEGATIVE (NEGATIVE) 01/19/19 14:30 Urine Nitrite NEGATIVE (NEGATIVE) 01/19/19 14:30 Urine Bilirubin NEGATIVE (NEGATIVE) 01/19/19 14:30 Urine Urobilinogen 1 (NORMAL) E.U./dL (NORMAL) 01/19/19 14:30 Ur Leukocyte Esterase NEGATIVE (NEGATIVE) 01/19/19 14:30 Ur Microscopic Review NOT INDICATED 01/19/19 14:30 Urine Culture Comments NOT INDICATED 01/19/19 14:30 MRSA Surveill Initial NEGATIVE (NEGATIVE) 01/19/19 09:30 - Procedures Procedures: Procedures EXCISION OF ABDOMEN SKIN, EXTERNAL APPROACH (03/27/17) RESECTION OF GALLBLADDER, PERCUTANEOUS ENDOSCOPIC APPROACH (03/27/17)
[2019-01-20] MEDS: SODIUM CHLORIDE FLUSH 0.9% 10 ML SYRINGE IVP PRN (12:41)
[2019-01-20 16:06] LABS: VANCOMYCIN,TROUGH 17.3 ug/mL (10.0-20.0)
[2019-01-20] MEDS: MONTELUKAST 10 MG TABLET PO SCH (21:48)
[2019-01-20] MEDS: ATORVASTATIN 10 MG TABLET PO SCH (21:48)
[2019-01-20] MEDS: LORazepam 1 MG TABLET PO PRN (23:23)
[2019-01-21] MEDS: MORPHINE SOL 10 MG/0.5 ML SYRINGE PO PRN ×2 (00:32→08:35)
[2019-01-21] MEDS: ALBUTEROL NEB 2.5 MG/3 ML INH PRN ×3 (03:51→11:28)
[2019-01-21] MEDS: VANCOMYCIN INJ 1 GM, VANCOMYCIN INJ 250 MG in SODIUM CHLORIDE 0.9% 250 ML IV SCH ×2 (04:03→16:46)
[2019-01-21] MEDS: MORPHINE SOL 10 MG/0.5 ML SYRINGE PO SCH ×3 (05:47→22:11)
[2019-01-21] MEDS: methylPREDNISolone SUCCINATE 40 MG/ML VIAL IVP SCH ×4 (05:48→23:35)
[2019-01-21 05:56] LABS: BASOPHILS % (AUTO) 0.1 %; HGB - HEMOGLOBIN 8.6 g/dL (12.0-16.0); LYMPHOCYTES # (AUTO) 0.3 10^3/uL (1.5-3.5); LYMPHOCYTES % (AUTO) 4.2 %; MEAN CORPUSCULAR HEMOGLOBIN 28.8 pg (27.0-31.0); MEAN CORPUSCULAR HGB CONC 32.3 g/dL (32.0-36.0); MEAN CORPUSCULAR VOLUME 89.4 fL (81.0-99.0); MEAN PLATELET VOLUME 6.9 fL (7.9-10.8); MONOCYTES # (AUTO) 0.3 10^3/uL (0.0-1.0); MONOCYTES % (AUTO) 4.2 %; NEUTROPHILS # (AUTO) 7.4 10^3/uL (1.5-6.6); NEUTROPHILS % (AUTO) 91.5 %; PLT - PLATELET COUNT 238 10^3/uL (130-450); RED BLOOD COUNT 2.99 10^6/uL (4.20-5.40); RED CELL DISTRIBUTION WIDTH 18.9 % (12.0-15.0); WHITE BLOOD COUNT 8.1 x10^3/uL (4.8-10.8)
[2019-01-21 06:02] LABS: CREATININE 0.4 mg/dL (0.4-1.0)
[2019-01-21 06:06] LABS: CALCIUM 8.4 mg/dL (8.5-10.3)
[2019-01-21 06:17] LABS: MAGNESIUM 2.3 mg/dL (1.7-2.8); PHOSPHORUS 3.6 mg/dL (2.5-4.6)
[2019-01-21] MEDS: BUDESONIDE 0.5 MG/2 ML NEB INH SCH ×2 (07:20→22:15)
[2019-01-21] MEDS: CEFEPIME 2 GM in SODIUM CHLORIDE 0.9% MINIBAG 100 ML IV SCH ×3 (07:50→23:35)
[2019-01-21] MEDS: SODIUM CHLORIDE FLUSH 0.9% 10 ML SYRINGE IVP SCH ×3 (07:50→23:35)
[2019-01-21] MEDS: INSULIN ASPART 300 UNIT/3 ML PEN SUBQ SCH ×4 (07:56→21:17)
[2019-01-21] MEDS: POLYETHYLENE GLYCOL 3350 17 GM PACKET PO SCH (08:36)
[2019-01-21] MEDS: guaiFENesin 600 MG TABLET PO SCH ×2 (08:38→21:18)
[2019-01-21] MEDS: FUROSEMIDE 40 MG TABLET PO SCH (08:38)
[2019-01-21] MEDS: ENOXAPARIN 40 MG/0.4 ML SYRINGE SUBQ SCH (08:38)
[2019-01-21] MEDS: SERTRALINE 50 MG TABLET PO SCH (08:38)
[2019-01-21] MEDS: diltiaZEM CD 120 MG CAPSULE PO SCH (08:44)
[2019-01-21] MEDS: acetaZOLAMIDE 250 MG TABLET PO SCH ×2 (08:45→21:18)
[2019-01-21] MEDS: TAMSULOSIN 0.4 MG CAPSULE PO SCH (08:46)
[2019-01-21] MEDS: LORazepam 1 MG TABLET PO PRN (09:38)
[2019-01-21] MEDS: FAMOTIDINE 20 MG TABLET PO SCH ×2 (09:38→21:17)
--- NOTE | 2019-01-21 11:13 | XRAY Report ---
Reason: Worse cough and SOB Procedure Date: 01/21/2019 Accession Number: [id number] / [id number] Procedure: XR - Chest 1 View X-Ray CPT Code: 77357 FULL RESULT: EXAM: CHEST RADIOGRAPHY EXAM DATE: 01/21/2019 11:00 AM. CLINICAL HISTORY: Worse cough and shortness of breath. COMPARISON: CHEST 1 VIEW 01/19/2019 8:49 AM CHEST 1 VIEW 01/04/2019 4:11 PM. TECHNIQUE: 1 view. FINDINGS: Examination limited by portable single view technique and rotation. Within these limitations: Lungs/Pleura: Small right pleural effusion, more prominent possibly due to positioning. There is the suggestion of pulmonary nodules on the right, ill-defined. Specifically, at the lateral right lung apex, up to 1.9 cm. Increased hazy markings at the lung bases are redemonstrated. No pneumothorax is seen. Mediastinum: Cardiomediastinal silhouette is likely stable, calcification of the aortic arch and cardiac silhouette within the upper limits of normal. Other: None. IMPRESSION: Limited examination, overall similar to 01/19/2019. Question right apical lung nodule. RADIA
--- NOTE | 2019-01-21 12:04 | PROVIDER PROGRESS NOTE ---
Assessment/Plan - Problem List (1) HCAP (healthcare-associated pneumonia) Assessment/Plan: CXR was repeated due to more SOB, and no difference seen. Continue iv antibiotics and pulmonary toilet. (2) Acute exacerbation of chronic obstructive pulmonary disease (COPD) Assessment/Plan: Continue pulmonary toilet and treating the anxiety, which is exacerbated by iv high dose steroids. Her Palliative Care provider, Ellie, saw her today. The patient would qualify for transfer to an LTAC. Discussed with Social Work to arrange. (3) Chronic anemia Assessment/Plan: On replacement Iron. (4) Essential (primary) hypertension Assessment/Plan: On home meds. (5) Hypertension Qualifiers: Hypertension type: essential hypertension Qualified Code(s): I10 - Essential (primary) hypertension (6) IDDM (insulin dependent diabetes mellitus) Assessment/Plan: On carb-controlled diet, fingerstick checks achs and ss Insulin. (7) Weakness generalized Assessment/Plan: She is extremely deconditioned, due to her frequent hospitalizations over the pa st 6 mos. She is mostly bed bound. (8) Anxiety Assessment/Plan: Continue her meds including the frequent Morphine she requires when she is claustrophobic from masks. - Current Meds Current Meds: Current Medications Generic Name Dose Route Start Last Admin Trade Name Freq PRN Reason Stop Dose Admin Acetazolamide 250 mg 01/19/19 09:00 01/21/19 08:45 Diamox PO 250 mg BID TERRY Administration Albuterol 2.5 mg 01/19/19 08:22 01/21/19 11:28 INH 2.5 mg RTQ4H PRN Administration Wheezing Atorvastatin Calcium 20 mg 01/19/19 21:00 01/20/19 21:48 Lipitor PO 20 mg QPM TERRY Administration Budesonide 0.5 mg 01/19/19 19:00 01/21/19 07:20 Pulmicort INH 0.5 mg RTBID TERRY Administration Diltiazem HCl 120 mg 01/20/19 17:44 01/21/19 08:44 Cardizem Cd PO 120 mg DAILY TERRY Administration Enoxaparin Sodium 40 mg 01/19/19 09:00 01/21/19 08:38 Lovenox SUBQ 40 mg DAILY TERRY Administration Famotidine 20 mg 01/19/19 09:00 01/21/19 09:38 Pepcid PO 20 mg BID TERRY Administration Furosemide 40 mg 01/19/19 09:00 01/21/19 08:38 Lasix PO 40 mg DAILY TERRY Administration Guaifenesin 600 mg 01/19/19 09:00 01/21/19 08:38 Mucinex PO 600 mg BID TERRY Administration Cefepime HCl 2 gm/ Sodium 100 mls @ 200 mls/hr 01/19/19 16:00 01/21/19 08:30 Chloride IV Infused Q8H TERRY Infusion Vancomycin HCl 1 gm/ 250 mls @ 167 mls/hr 01/19/19 16:00 01/21/19 05:47 Vancomycin HCl 250 mg/ Sodium IV Infused Chloride Q12H TERRY Infusion Insulin Aspart 1 - 9 unit 01/19/19 12:00 01/21/19 07:56 Novolog SUBQ Not Given 0800,1200,1700,2100 [facility] Protocol Ipratropium [place] 0.5 mg 01/19/19 08:22 01/19/19 10:17 Atrovent INH 0.5 mg RTQ6H PRN Administration Wheezing Lorazepam 1 mg 01/20/19 17:43 01/21/19 09:38 Ativan PO 1 mg Q6H PRN Administration Anxiety Methylprednisolone 40 mg 01/19/19 12:00 01/21/19 05:48 Solu-Medrol (40mg Vial) IVP 40 mg Q6HR TERRY Administration Montelukast Sodium 10 mg 01/19/19 21:00 01/20/19 21:48 Singulair PO 10 mg QPM TERRY Administration Morphine Sulfate 5 mg 01/19/19 09:00 01/21/19 05:47 Roxanol PO 5 mg TID TERRY Administration Morphine Sulfate 10 mg 01/19/19 08:44 01/21/19 08:35 Roxanol PO 10 mg Q2H PRN Administration Pain/Dyspnea Polyethylene Glycol 17 gm 01/20/19 10:00 01/21/19 08:36 Miralax PO 17 gm DAILY TERRY Administration Sertraline HCl 50 mg 01/19/19 09:00 01/21/19 08:38 Zoloft PO 50 mg DAILY TERRY Administration Sodium Chloride 10 ml 01/19/19 09:00 01/21/19 07:50 Normal Saline Flush 0.9% IVP 10 ml 0100,0900,1700 TERRY Administration Sodium Chloride 10 ml 01/19/19 08:22 01/20/19 12:41 Normal Saline Flush 0.9% IVP 10 ml PRN PRN Administration NEEDED PER PROVIDER ORDERS Tamsulosin HCl 0.4 mg 01/19/19 09:00 01/21/19 08:46 Flomax PO 0.4 mg DAILY TERRY Administration - Lab Result Fish Bone Diagrams: 01/21/19 05:25 01/21/19 05:25 - Additional Planning My Orders: My Active Orders 01/20/19 17:43 LORazepam [Ativan] 1 mg PO Q6H PRN 01/20/19 17:44 [id number] CD [Cardizem Cd] 120 mg PO DAILY 01/22/19 05:00 BMP - BASIC METABOLIC PANEL [CHEM] DAILYLAB CBC - COMP BLD CT W/AUTO DIFF [HEME] DAILYLAB 01/23/19 05:00 BMP - BASIC METABOLIC PANEL [CHEM] DAILYLAB CBC - COMP BLD CT W/AUTO DIFF [HEME] DAILYLAB Subjective - Subjective Patient Reports: Cough, Shortness of Breath, Other (Feeling worse, doesn't want to try a mask on her face) Nursing Reports: Other (More tremulous (since on iv steroids), more anxious today as well, sputum is brown) Objective Vital Signs: Vital Signs - 24 hr 01/20/19 01/20/19 01/20/19 13:00 14:54 16:00 Temperature 36 C L 36 C L Heart Rate Heart Rate [ 80 88 86 Monitoring electrodes] Respiratory 18 19 93 H Rate Blood Pressure 129/55 L 159/56 H 152/64 H [Right Brachial artery] O2 Saturation 96 96 95 01/20/19 01/20/19 01/20/19 16:55 17:00 19:00 Temperature Heart Rate 92 Heart Rate [ 85 90 Monitoring electrodes] Respiratory 22 21 23 Rate Blood Pressure 120/54 L 148/63 H [Right Brachial artery] O2 Saturation 93 94 01/20/19 01/20/19 01/20/19 19:41 21:59 22:29 Temperature 37.2 C Heart Rate 85 94 Heart Rate [ 107 H Monitoring electrodes] Respiratory 19 27 H 30 H Rate Blood Pressure 171/76 H [Right Brachial artery] O2 Saturation 90 L 01/20/19 01/21/19 01/21/19 23:00 00:00 01:00 Temperature 36.7 C Heart Rate Heart Rate [ 82 90 79 Monitoring electrodes] Respiratory 18 19 13 Rate Blood Pressure 124/67 132/63 H 128/60 [Right Brachial artery] O2 Saturation 94 95 98 01/21/19 01/21/19 01/21/19 02:00 03:00 03:52 Temperature Heart Rate 88 Heart Rate [ 65 66 Monitoring electrodes] Respiratory 12 12 18 Rate Blood Pressure 106/54 L 117/55 L [Right Brachial artery] O2 Saturation 99 99 01/21/19 01/21/19 01/21/19 04:00 05:00 06:00 Temperature 36.3 C L Heart Rate Heart Rate [ 74 69 78 Monitoring electrodes] Respiratory 14 14 17 Rate Blood Pressure 136/58 H 123/54 L 144/99 H [Right Brachial artery] O2 Saturation 94 93 94 01/21/19 01/21/19 01/21/19 07:00 07:20 08:00 Temperature 36.6 C Heart Rate 80 Heart Rate [ 75 86 Monitoring electrodes] Respiratory 16 17 20 Rate Blood Pressure 134/69 H 101/78 [Right Brachial artery] O2 Saturation 96 91 L 01/21/19 01/21/19 01/21/19 09:00 11:00 11:26 Temperature Heart Rate 76 Heart Rate [ 101 H 83 Monitoring electrodes] Respiratory 24 15 14 Rate Blood Pressure 155/59 H 94/68 [Right Brachial artery] O2 Saturation 94 97 Oxygen O2 Source [With Activity] Triology unit O2 Source HFN Oxygen Flow Rate 15 I&O (Last 24 Hrs): Intake and Output Totals x24h 01/19/19 01/20/19 01/21/19 23:59 23:59 23:59 Intake Total 2600 2546 630 Output Total 725 350 350 Balance 1875 2196 280 General: Alert, Oriented x3 HEENT: Mucous membr. moist/pink, Other (Wearing oximizer) Neck: Other (Obese) Neuro: Non Focal Cardiovascular: Regular rate Respiratory: Other (Poor air movement, tight diffusely, but no wheezing or rales) Abdomen: Soft, Other (Obese with pannus) Extremities: No edema - Results Results: Laboratory Results WBC 8.1 x10^3/uL (4.8-10.8) 01/21/19 05:25 RBC 2.99 10^6/uL (4.20-5.40) L 01/21/19 05:25 Hgb 8.6 g/dL (12.0-16.0) L 01/21/19 05:25 Hct 26.7 % (37.0-47.0) L 01/21/19 05:25 MCV 89.4 fL (81.0-99.0) 01/21/19 05:25 MCH 28.8 pg (27.0-31.0) 01/21/19 05:25 MCHC 32.3 g/dL (32.0-36.0) 01/21/19 05:25 RDW 18.9 % (12.0-15.0) H 01/21/19 05:25 Plt Count 238 10^3/uL (130-450) 01/21/19 05:25 MPV 6.9 fL (7.9-10.8) L 01/21/19 05:25 Neut # (Auto) 7.4 10^3/uL (1.5-6.6) H 01/21/19 05:25 Lymph # (Auto) 0.3 10^3/uL (1.5-3.5) L 01/21/19 05:25 [place] # (Auto) 0.3 10^3/uL (0.0-1.0) 01/21/19 05:25 Eos # (Auto) 0.0 10^3/uL (0.0-0.7) 01/21/19 05:25 Baso # (Auto) 0.0 10^3/uL (0.0-0.1) 01/21/19 05:25 Absolute Nucleated RBC 0.02 x10^3/uL 01/21/19 05:25 Nucleated RBC % 0.2 /100WBC 01/21/19 05:25 PT 13.8 secs (9.9-12.6) H 01/19/19 06:30 INR 1.2 (0.8-1.2) 01/19/19 06:30 Sodium 136 mmol/L (135-145) 01/21/19 05:25 Potassium 3.6 mmol/L (3.5-5.0) 01/21/19 05:25 Chloride 97 mmol/L (101-111) L 01/21/19 05:25 Carbon Dioxide 32 mmol/L (21-32) 01/21/19 05:25 Anion Gap 7.0 (6-13) 01/21/19 05:25 BUN 19 mg/dL (6-20) 01/21/19 05:25 Creatinine 0.4 mg/dL (0.4-1.0) 01/21/19 05:25 Estimated GFR (MDRD) 159 (>89) 01/21/19 05:25 Glucose 159 mg/dL (70-100) H 01/21/19 05:25 POC Whole Bld Glucose 152 mg/dL (70 - 100) H 01/21/19 11:31 Glycated Hemoglobin 6.2 % (4.6-6.2) 01/19/19 06:30 Estim Average Glucose 131 (70-100) H 01/19/19 06:30 Lactic Acid 1.9 mmol/L (0.5-2.2) 01/19/19 09:30 Calcium 8.4 mg/dL (8.5-10.3) L 01/21/19 05:25 Phosphorus 3.6 mg/dL (2.5-4.6) 01/21/19 05:25 Magnesium 2.3 mg/dL (1.7-2.8) 01/21/19 05:25 Total Bilirubin 1.2 mg/dL (0.2-1.0) H 01/19/19 06:30 AST 17 IU/L (10-42) 01/19/19 06:30 ALT 19 IU/L (10-60) 01/19/19 06:30 Alkaline Phosphatase 65 IU/L (42-121) 01/19/19 06:30 Troponin I < 0.04 ng/mL (<0.49) 01/19/19 06:30 B-Natriuretic Peptide 76 pg/mL (5-100) 01/19/19 06:30 Total Protein 6.4 g/dL (6.7-8.2) L 01/19/19 06:30 Albumin 2.3 g/dL (3.2-5.5) L 01/21/19 05:25 Globulin 3.1 g/dL (2.1-4.2) 01/19/19 06:30 Albumin/Globulin Ratio 1.1 (1.0-2.2) 01/19/19 06:30 Lipase 26 U/L (22-51) 01/19/19 06:30 Urine Color YELLOW 01/19/19 14:30 Urine Clarity CLEAR (CLEAR) 01/19/19 14:30 Urine pH 8.0 PH (5.0-7.5) H 01/19/19 14:30 Ur Specific [place] 1.015 (1.002-1.030) 01/19/19 14:30 Urine Protein TRACE mg/dL (NEGATIVE) 01/19/19 14:30 Urine Glucose (UA) NEGATIVE mg/dL (NEGATIVE) 01/19/19 14:30 Urine Ketones NEGATIVE mg/dL (NEGATIVE) 01/19/19 14:30 Urine Occult Blood NEGATIVE (NEGATIVE) 01/19/19 14:30 Urine Nitrite NEGATIVE (NEGATIVE) 01/19/19 14:30 Urine Bilirubin NEGATIVE (NEGATIVE) 01/19/19 14:30 Urine Urobilinogen 1 (NORMAL) E.U./dL (NORMAL) 01/19/19 14:30 Ur Leukocyte Esterase NEGATIVE (NEGATIVE) 01/19/19 14:30 Ur Microscopic Review NOT INDICATED 01/19/19 14:30 Urine Culture Comments NOT INDICATED 01/19/19 14:30 Last Dose Date 01/20/19 01/20/19 15:39 Last Dose Time 0510 01/20/19 15:39 Vancomycin Trough 17.3 ug/mL (10.0-20.0) 01/20/19 15:39 MRSA Surveill Initial NEGATIVE (NEGATIVE) 01/19/19 09:30 - Procedures Procedures: Procedures EXCISION OF ABDOMEN SKIN, EXTERNAL APPROACH (03/27/17) RESECTION OF GALLBLADDER, PERCUTANEOUS ENDOSCOPIC APPROACH (03/27/17)
[2019-01-21] MEDS: SODIUM CHLORIDE FLUSH 0.9% 10 ML SYRINGE IVP PRN ×3 (12:24→23:36)
[2019-01-21] MEDS: ATORVASTATIN 10 MG TABLET PO SCH (21:18)
[2019-01-21] MEDS: MONTELUKAST 10 MG TABLET PO SCH (21:18)
[2019-01-22] MEDS: VANCOMYCIN INJ 1 GM, VANCOMYCIN INJ 250 MG in SODIUM CHLORIDE 0.9% 250 ML IV SCH (04:04)
[2019-01-22] MEDS: MORPHINE SOL 10 MG/0.5 ML SYRINGE PO PRN ×4 (04:14→19:02)
[2019-01-22] MEDS: MIN OIL/DIMETHICON/COCONUT OIL 92 GM TUBE TOP PRN ×4 (04:23→17:04)
[2019-01-22] MEDS: LORazepam 1 MG TABLET PO PRN (04:50)
[2019-01-22 05:30] LABS: BASOPHILS % (AUTO) 0.2 %; HGB - HEMOGLOBIN 9.5 g/dL (12.0-16.0); LYMPHOCYTES # (AUTO) 0.3 10^3/uL (1.5-3.5); MEAN CORPUSCULAR HEMOGLOBIN 28.6 pg (27.0-31.0); MEAN CORPUSCULAR HGB CONC 31.9 g/dL (32.0-36.0); MEAN CORPUSCULAR VOLUME 89.5 fL (81.0-99.0); MEAN PLATELET VOLUME 6.9 fL (7.9-10.8); MONOCYTES # (AUTO) 0.2 10^3/uL (0.0-1.0); MONOCYTES % (AUTO) 2.9 %; NEUTROPHILS % (AUTO) 92.9 %; PLT - PLATELET COUNT 286 10^3/uL (130-450); RED BLOOD COUNT 3.33 10^6/uL (4.20-5.40); RED CELL DISTRIBUTION WIDTH 18.5 % (12.0-15.0); WHITE BLOOD COUNT 6.5 x10^3/uL (4.8-10.8)
[2019-01-22 05:39] LABS: CALCIUM 8.7 mg/dL (8.5-10.3)
[2019-01-22 05:41] LABS: CREATININE 0.4 mg/dL (0.4-1.0)
[2019-01-22] MEDS: methylPREDNISolone SUCCINATE 40 MG/ML VIAL IVP SCH ×4 (06:12→23:41)
[2019-01-22] MEDS: SODIUM CHLORIDE FLUSH 0.9% 10 ML SYRINGE IVP PRN ×4 (06:12→17:53)
[2019-01-22] MEDS: MORPHINE SOL 10 MG/0.5 ML SYRINGE PO SCH ×3 (06:25→21:35)
[2019-01-22] MEDS: BUDESONIDE 0.5 MG/2 ML NEB INH SCH ×2 (07:23→19:37)
[2019-01-22] MEDS: CEFEPIME 2 GM in SODIUM CHLORIDE 0.9% MINIBAG 100 ML IV SCH ×3 (08:08→23:41)
[2019-01-22 08:11] LABS: MAGNESIUM 2.5 mg/dL (1.7-2.8)
[2019-01-22] MEDS: SODIUM CHLORIDE FLUSH 0.9% 10 ML SYRINGE IVP SCH ×4 (08:16→23:47)
[2019-01-22] MEDS: INSULIN ASPART 300 UNIT/3 ML PEN SUBQ SCH ×4 (08:34→20:28)
[2019-01-22] MEDS: FAMOTIDINE 20 MG TABLET PO SCH ×2 (08:36→20:27)
[2019-01-22] MEDS: ENOXAPARIN 40 MG/0.4 ML SYRINGE SUBQ SCH (08:37)
[2019-01-22] MEDS: SERTRALINE 50 MG TABLET PO SCH (08:37)
[2019-01-22] MEDS: FUROSEMIDE 40 MG TABLET PO SCH (08:37)
[2019-01-22] MEDS: TAMSULOSIN 0.4 MG CAPSULE PO SCH (08:37)
[2019-01-22] MEDS: guaiFENesin 600 MG TABLET PO SCH ×3 (08:37→20:27)
[2019-01-22] MEDS: diltiaZEM CD 120 MG CAPSULE PO SCH (08:38)
[2019-01-22] MEDS: POLYETHYLENE GLYCOL 3350 17 GM PACKET PO SCH (08:42)
[2019-01-22] MEDS: acetaZOLAMIDE 250 MG TABLET PO SCH ×2 (09:05→20:27)
[2019-01-22] MEDS: IPRATROPIUM/ALBUTEROL 3 ML NEB INH SCH ×3 (11:15→19:37)
--- NOTE | 2019-01-22 14:55 | PROVIDER PROGRESS NOTE ---
Subjective - Prog Note Date Prog Note Date: 01/22/19 Prog Note Time: 14:53 - Subjective Pt reports feeling: Worse (SOB with AMS) Current Medications - Current Medications Current Medications: Active Medications Acetaminophen (Tylenol) 650 mg PO Q4HR PRN PRN Reason: Pain or Fever > 38C (100.4F) Acetazolamide (Diamox) 250 mg PO BID [facility] Last Admin: 01/22/19 09:05 Dose: 250 mg Albuterol () 2.5 mg INH RTQ4H PRN PRN Reason: Wheezing Last Admin: 01/21/19 11:28 Dose: 2.5 mg Albuterol/Ipratropium (Duoneb) 3 ml INH RTQID [facility] Last Admin: 01/22/19 11:15 Dose: 3 ml Atorvastatin Calcium (Lipitor) 20 mg PO QPM [facility] Last Admin: 01/21/19 21:18 Dose: 20 mg Budesonide (Pulmicort) 0.5 mg INH RTBID [facility] Last Admin: 01/22/19 07:23 Dose: 0.5 mg Diltiazem HCl (Cardizem Cd) 120 mg PO DAILY [facility] Last Admin: 01/22/19 08:38 Dose: 120 mg Enoxaparin Sodium (Lovenox) 40 mg SUBQ DAILY [facility] Last Admin: 01/22/19 08:37 Dose: 40 mg Famotidine (Pepcid) 20 mg PO BID [facility] Last Admin: 01/22/19 08:36 Dose: 20 mg Furosemide (Lasix) 40 mg PO DAILY [facility] Last Admin: 01/22/19 08:37 Dose: 40 mg Guaifenesin (Mucinex) 600 mg PO BID [facility] Last Admin: 01/22/19 09:10 Dose: Not Given Cefepime HCl 2 gm/ Sodium (Chloride) 100 mls @ 200 mls/hr IV Q8H [facility] Last Infusion: 01/22/19 08:38 Dose: Infused Vancomycin HCl 1 gm/Vancomycin HCl 250 mg/ Sodium Chloride 250 mls @ 167 mls/hr IV Q12H [facility] Last Infusion: 01/22/19 06:19 Dose: Infused Ibuprofen (Motrin) 600 mg PO Q6HR PRN PRN Reason: Pain 1 to 4 Insulin Aspart (Novolog) 1 - 9 unit SUBQ 0800,1200,1700,2100 [facility]; Protocol Last Admin: 01/22/19 08:34 Dose: 1 unit Lorazepam (Ativan) 1 mg PO Q6H PRN PRN Reason: Anxiety Last Admin: 01/22/19 04:50 Dose: 1 mg Methylprednisolone (Solu-Medrol (40mg Vial)) 40 mg IVP Q6HR [facility] Last Admin: 01/22/19 12:21 Dose: 40 mg Mineral Oil (Cavilon) 1 applic TOP PRN PRN PRN Reason: Skin Care Last Admin: 01/22/19 11:45 Dose: 1 applic Montelukast Sodium (Singulair) 10 mg PO QPM [facility] Last Admin: 01/21/19 21:18 Dose: 10 mg Morphine Sulfate (Roxanol) 5 mg PO TID [facility] Last Admin: 01/22/19 06:25 Dose: Not Given Morphine Sulfate (Roxanol) 10 mg PO Q2H PRN PRN Reason: Pain/Dyspnea Last Admin: 01/22/19 11:07 Dose: 10 mg Multivitamins/Minerals (Theragran M) [facility] [place] Polyethylene Glycol (Miralax) 17 gm PO DAILY [facility] Last Admin: 01/22/19 08:42 Dose: 17 gm Prochlorperazine Edisylate (Compazine Inj) 10 mg IVP Q6HR PRN PRN Reason: Nausea / Vomiting Sertraline HCl (Zoloft) 50 mg PO DAILY [facility] Last Admin: 01/22/19 08:37 Dose: 50 mg Sodium Chloride (Normal Saline Flush 0.9%) 10 ml IVP 0100,0900,1700 [facility] Last Admin: 01/22/19 12:21 Dose: 10 ml Sodium Chloride (Normal Saline Flush 0.9%) 10 ml IVP PRN PRN PRN Reason: NEEDED PER PROVIDER ORDERS Last Admin: 01/22/19 12:30 Dose: 10 ml Tamsulosin HCl (Flomax) 0.4 mg PO DAILY [facility] Last Admin: 01/22/19 08:37 Dose: 0.4 mg Albuterol Sulfate [Proair Hfa Inhaler] 1 puffs INH Q6H PRN 08/31/16 Polyethylene Glycol 3350 [Miralax] 17 g PO DAILY 10/19/18 Albuterol 2.5 mg INH Q4H PRN 11/19/18 Atorvastatin Calcium 20 mg PO QPM 12/10/18 Insulin Lispro [Humalog Kwikpen U-100] 0 - 100 unit SQ .PRN SLIDING SCALE MDD sliding scale 12/13/18 Morphine Sulfate [Morphine Sulf Oral (Roxanol)] 5 mg PO TID 12/13/18 predniSONE [Deltasone] 20 mg PO DAILY [facility] Start date 01/16/19 01/14/19 Objective - Vital Signs/Intake & Output Reviewed Vital Signs: Yes Vital Signs: Vital Signs x48h Temp Pulse Pulse Resp BP Pulse Ox 01/22/19 14:00 64 11 L 134/63 H 94 01/22/19 13:00 69 12 142/59 H 93 01/22/19 11:55 37 C 87 17 152/63 H 97 01/22/19 11:15 88 21 01/22/19 11:00 89 17 159/60 H 98 01/22/19 10:34 36.8 C 84 19 95 01/22/19 09:00 84 19 166/64 H 95 01/22/19 08:23 36.8 C 79 19 150/88 H 100 01/22/19 07:23 96 24 01/22/19 07:00 80 18 153/53 H 97 Intake & Output: Intake & Output 01/19/19 01/20/19 01/21/19 01/22/19 23:59 23:59 23:59 23:59 Intake Total 2600 2546 1300 870 Output Total 725 350 900 600 Balance 1875 2196 400 270 - Objective General Appearance: positive: Moderate distress, Anxious, Other (Poor response to verbal command. Does respoind to painful stimuli.) Eyes Bilateral: positive: PERRL, Conjunctivae nml ENT: positive: Pharynx nml, No signs of dehydration Neck: positive: Thyroid nml, No JVD. negative: Carotid bruit Respiratory: positive: Chest non-tender, Rales, Rhonchi. negative: Wheezes Cardiovascular: positive: Regular rate & rhythm, No murmur, No gallop. negative: JVD present Peripheral Pulses: 2+ Dorsalis pedis (R), 2+ Dorsalis pedis (L) Abdomen: positive: Non-tender, No organomegaly, Nml bowel sounds, No distention. negative: Tenderness Skin: positive: Color nml, No rash, Dry. negative: Skin rash Extremities: positive: Non-tender, Full ROM, Nml appearance Neurologic/Psychiatric: positive: Disoriented to person, Disoriented to place, Disoriented to time, Depressed mood/affect. negative: Facial droop - Lab Results Fish Bones: 01/22/19 05:08 01/22/19 05:08 Other Labs: Lab Results x24hrs 01/22/19 01/22/19 01/22/19 Range/Units 11:50 07:38 05:08 WBC (4.8-10.8) x10^3/uL RBC (4.20-5.40) 10^6/uL Hgb (12.0-16.0) g/dL Hct (37.0-47.0) % MCV (81.0-99.0) fL MCH (27.0-31.0) pg MCHC (32.0-36.0) g/dL RDW (12.0-15.0) % Plt Count (130-450) 10^3/uL MPV (7.9-10.8) fL Neut # (Auto) (1.5-6.6) 10^3/uL Lymph # (Auto) (1.5-3.5) 10^3/uL [place] # (Auto) (0.0-1.0) 10^3/uL Eos # (Auto) (0.0-0.7) 10^3/uL Baso # (Auto) (0.0-0.1) 10^3/uL Absolute Nucleated RBC x10^3/uL Nucleated RBC % /100WBC Sodium 142 (135-145) mmol/L Potassium 3.5 (3.5-5.0) mmol/L Chloride 98 L (101-111) mmol/L Carbon Dioxide 32 (21-32) mmol/L Anion Gap 12.0 (6-13) BUN 25 H (6-20) mg/dL Creatinine 0.4 (0.4-1.0) mg/dL Estimated GFR (MDRD) 159 (>89) Glucose 170 H (70-100) mg/dL POC Whole Bld Glucose 151 H 152 H (70 - 100) mg/dL Calcium 8.7 (8.5-10.3) mg/dL Phosphorus (2.5-4.6) mg/dL Magnesium (1.7-2.8) mg/dL Blood Type Blood Type Recheck Antibody Screen 01/22/19 01/22/19 01/21/19 Range/Units 05:08 05:05 20:47 WBC 6.5 (4.8-10.8) x10^3/uL RBC 3.33 L (4.20-5.40) 10^6/uL Hgb 9.5 L (12.0-16.0) g/dL Hct 29.8 L (37.0-47.0) % MCV 89.5 (81.0-99.0) fL MCH 28.6 (27.0-31.0) pg MCHC 31.9 L (32.0-36.0) g/dL RDW 18.5 H (12.0-15.0) % Plt Count 286 (130-450) 10^3/uL MPV 6.9 L (7.9-10.8) fL Neut # (Auto) 6.0 (1.5-6.6) 10^3/uL Lymph # (Auto) 0.3 L (1.5-3.5) 10^3/uL [place] # (Auto) 0.2 (0.0-1.0) 10^3/uL Eos # (Auto) 0.0 (0.0-0.7) 10^3/uL Baso # (Auto) 0.0 (0.0-0.1) 10^3/uL Absolute Nucleated RBC 0.03 x10^3/uL Nucleated RBC % 0.4 /100WBC Sodium (135-145) mmol/L Potassium (3.5-5.0) mmol/L Chloride (101-111) mmol/L Carbon Dioxide (21-32) mmol/L Anion Gap (6-13) BUN (6-20) mg/dL Creatinine (0.4-1.0) mg/dL Estimated GFR (MDRD) (>89) Glucose (70-100) mg/dL POC Whole Bld Glucose 176 H (70 - 100) mg/dL Calcium (8.5-10.3) mg/dL Phosphorus 5.0 H (2.5-4.6) mg/dL Magnesium 2.5 (1.7-2.8) mg/dL Blood Type Blood Type Recheck Antibody Screen 01/21/19 01/21/19 01/21/19 Range/Units 20:15 16:55 05:52 WBC (4.8-10.8) x10^3/uL RBC (4.20-5.40) 10^6/uL Hgb (12.0-16.0) g/dL Hct (37.0-47.0) % MCV (81.0-99.0) fL MCH (27.0-31.0) pg MCHC (32.0-36.0) g/dL RDW (12.0-15.0) % Plt Count (130-450) 10^3/uL MPV (7.9-10.8) fL Neut # (Auto) (1.5-6.6) 10^3/uL Lymph # (Auto) (1.5-3.5) 10^3/uL [place] # (Auto) (0.0-1.0) 10^3/uL Eos # (Auto) (0.0-0.7) 10^3/uL Baso # (Auto) (0.0-0.1) 10^3/uL Absolute Nucleated RBC x10^3/uL Nucleated RBC % /100WBC Sodium (135-145) mmol/L Potassium (3.5-5.0) mmol/L Chloride (101-111) mmol/L Carbon Dioxide (21-32) mmol/L Anion Gap (6-13) BUN (6-20) mg/dL Creatinine (0.4-1.0) mg/dL Estimated GFR (MDRD) (>89) Glucose (70-100) mg/dL POC Whole Bld Glucose 129 H (70 - 100) mg/dL Calcium (8.5-10.3) mg/dL Phosphorus (2.5-4.6) mg/dL Magnesium (1.7-2.8) mg/dL Blood Type O POSITIVE Blood Type Recheck O POSITIVE Antibody Screen NEGATIVE ABX Reporting Has patient been on IV antibiotics over the past 48 hours?: Yes Assessment/Plan - Problem List (1) HCAP (healthcare-associated pneumonia) Impression: CXR was repeated due to more SOB, and no difference seen. Continue w/ IV cefepime as patient continues to have re-infection with enterobacter cloacae sens to cefepime/ceftriaxone. Continue with resp pulm toileting, nebs, curretn med mgmt. (2) End stage COPD Impression: Continue pulmonary toilet and treating the anxiety, which is exacerbated by iv high dose steroids. Her Palliative Care provider, Ellie, saw her today. The patient would qualify for transfer to an LTAC. However this could not be achieved due to critical access hospital status. Discussed with Social Work to arrange. Will likely need to go back to [facility]. (3) Acute on chronic respiratory failure with hypoxia and hypercapnia Impression: Continue current mgmt, intermittent bipap prn, was on trilogy previously, nebs, steroids, diamox, cefepime, lasix to continue (4) IDDM (insulin dependent diabetes mellitus) Impression: ISS with bolus and basal coverage while being on steroids (5) Anxiety Impression: Continue her meds including the frequent Morphine she requires when she is claustrophobic from masks. (6) Chronic anemia Impression: Iron def anemia. On replacement Iron. Continue to monitor no need for transfusions. (7) Encephalopathy acute Impression: Currently her medical decision capacity is highly impaired due to her hypoxic induced encephalopathy. Would need to re-evaluate goals of care as well as code status with sister who is POA. (8) Opioid dependence Impression: Continue with morphine prn Qualifiers: Substance use status: uncomplicated Qualified Code(s): F11.20 - Opioid dependence, uncomplicated (9) Palliative care status Impression: Patient continues to see palliative service for her goals of care to be addressed, symptom mgmt, trajectory of illness, however her hypoxic-induced encephalopathy would be become a challenge to address her goals of care and definitely would affect her code status as she continues to be FULL CODE. However, her medical decision capacity is highly impaired due to her hypoxic induced encephalopathy. She is extremely deconditioned, due to her frequent hospitalizations over the past 6 mos. She is mostly bed bound.
[2019-01-22] MEDS: MULTIVITAMIN W/MINERALS TABLET PO SCH (15:12)
[2019-01-22 16:30] LABS: ABG PCO2 56 mmHg (34-45); ABG PH 7.41 (7.35-7.45); ABG PO2 64 mmHg (80-100)
[2019-01-22 16:31] LABS: ABG BASE EXCESS 8.8 mmol/L (-2.0-3.0); ABG HCO3 34.9 mmol/L (22.0-26.0); ABG OXYGEN SATURATION 91 % (94-98); ABG TCO2 36.6 MMOL/L (21.0-29.0); ALLEN TEST POSITIVE
[2019-01-22] MEDS: ATORVASTATIN 10 MG TABLET PO SCH (20:27)
[2019-01-22] MEDS: MONTELUKAST 10 MG TABLET PO SCH (20:27)
[2019-01-23] MEDS: MORPHINE SOL 10 MG/0.5 ML SYRINGE PO PRN ×2 (00:01→21:58)
[2019-01-23] MEDS: methylPREDNISolone SUCCINATE 40 MG/ML VIAL IVP SCH ×3 (05:08→21:41)
[2019-01-23] MEDS: MORPHINE SOL 10 MG/0.5 ML SYRINGE PO SCH ×4 (05:09→20:39)
[2019-01-23] MEDS: SODIUM CHLORIDE FLUSH 0.9% 10 ML SYRINGE IVP SCH ×4 (05:10→21:38)
[2019-01-23] MEDS: LORazepam 1 MG TABLET PO PRN ×2 (05:23→22:00)
[2019-01-23 06:11] LABS: HGB - HEMOGLOBIN 9.5 g/dL (12.0-16.0); LYMPHOCYTES # (AUTO) 0.4 10^3/uL (1.5-3.5); MEAN CORPUSCULAR HEMOGLOBIN 28.3 pg (27.0-31.0); MEAN CORPUSCULAR VOLUME 88.5 fL (81.0-99.0); MEAN PLATELET VOLUME 6.8 fL (7.9-10.8); MONOCYTES # (AUTO) 0.2 10^3/uL (0.0-1.0); MONOCYTES % (AUTO) 3.3 %; NEUTROPHILS # (AUTO) 5.7 10^3/uL (1.5-6.6); NEUTROPHILS % (AUTO) 90.7 %; PLT - PLATELET COUNT 275 10^3/uL (130-450); RED BLOOD COUNT 3.37 10^6/uL (4.20-5.40); RED CELL DISTRIBUTION WIDTH 18.5 % (12.0-15.0); WHITE BLOOD COUNT 6.3 x10^3/uL (4.8-10.8)
[2019-01-23 06:22] LABS: CALCIUM 8.5 mg/dL (8.5-10.3); CREATININE 0.5 mg/dL (0.4-1.0)
[2019-01-23] MEDS ORDERED: POTASSIUM CHLORIDE 20 MEQ TABLET PO ONE (06:25)
[2019-01-23] MEDS: BUDESONIDE 0.5 MG/2 ML NEB INH SCH ×2 (07:11→19:21)
[2019-01-23] MEDS: IPRATROPIUM/ALBUTEROL 3 ML NEB INH SCH ×4 (07:11→19:21)
[2019-01-23 08:47] LABS: ABG PH 7.38 (7.35-7.45)
[2019-01-23 08:50] LABS: ABG BASE EXCESS 8.5 mmol/L (-2.0-3.0); ABG HCO3 35.2 mmol/L (22.0-26.0); ABG OXYGEN SATURATION 92 % (94-98); ABG PCO2 61 mmHg (34-45); ABG PO2 70 mmHg (80-100); ABG TCO2 37.1 MMOL/L (21.0-29.0); ALLEN TEST POSITIVE
[2019-01-23] MEDS: CEFEPIME 2 GM in SODIUM CHLORIDE 0.9% MINIBAG 100 ML IV SCH ×4 (08:52→23:23)
[2019-01-23] MEDS: INSULIN ASPART 300 UNIT/3 ML PEN SUBQ SCH ×4 (08:57→20:55)
[2019-01-23] MEDS: diltiaZEM CD 120 MG CAPSULE PO SCH (09:00)
[2019-01-23] MEDS: MULTIVITAMIN W/MINERALS TABLET PO SCH (09:00)
[2019-01-23] MEDS: FUROSEMIDE 40 MG TABLET PO SCH (09:01)
[2019-01-23] MEDS: FAMOTIDINE 20 MG TABLET PO SCH ×2 (09:02→20:39)
[2019-01-23] MEDS: guaiFENesin 600 MG TABLET PO SCH ×2 (09:03→20:39)
[2019-01-23] MEDS: TAMSULOSIN 0.4 MG CAPSULE PO SCH (09:03)
[2019-01-23] MEDS: SERTRALINE 50 MG TABLET PO SCH (09:03)
[2019-01-23] MEDS: POLYETHYLENE GLYCOL 3350 17 GM PACKET PO SCH (09:09)
[2019-01-23] MEDS: ENOXAPARIN 40 MG/0.4 ML SYRINGE SUBQ SCH (09:10)
[2019-01-23] MEDS: POTASSIUM CHLORIDE 20 MEQ TABLET PO SCH ×2 (09:41→17:04)
[2019-01-23 12:02] LABS: ABG PH 7.38 (7.35-7.45)
[2019-01-23 12:03] LABS: ABG HCO3 39.9 mmol/L (22.0-26.0); ABG PCO2 69 mmHg (34-45); ABG PO2 58 mmHg (80-100)
[2019-01-23 12:05] LABS: ABG BASE EXCESS 12.4 mmol/L (-2.0-3.0)
[2019-01-23 12:07] LABS: ABG OXYGEN SATURATION 87 % (94-98); ALLEN TEST POSITIVE
--- NOTE | 2019-01-23 13:26 | PROVIDER PROGRESS NOTE ---
Subjective - Prog Note Date Prog Note Date: 01/23/19 Prog Note Time: 13:24 - Subjective Pt reports feeling: Worse (Patient's mental status has been waxing and waning. Currently bedbound and receiving intermittent BiPAP. Has lucid periods of verbal conversation) Current Medications - Current Medications Current Medications: Active Medications Acetaminophen (Tylenol) 650 mg PO Q4HR PRN PRN Reason: Pain or Fever > 38C (100.4F) Acetazolamide (Diamox) 250 mg PO TID [facility] Albuterol () 2.5 mg INH RTQ4H PRN PRN Reason: Wheezing Last Admin: 01/21/19 11:28 Dose: 2.5 mg Albuterol/Ipratropium (Duoneb) 3 ml INH RTQID [facility] Last Admin: 01/23/19 11:53 Dose: 3 ml Atorvastatin Calcium (Lipitor) 20 mg PO QPM [facility] Last Admin: 01/22/19 20:27 Dose: 20 mg Budesonide (Pulmicort) 0.5 mg INH RTBID [facility] Last Admin: 01/23/19 07:11 Dose: 0.5 mg Diltiazem HCl (Cardizem Cd) 180 mg PO DAILY [facility] Enoxaparin Sodium (Lovenox) 40 mg SUBQ DAILY [facility] Last Admin: 01/23/19 09:10 Dose: 40 mg Famotidine (Pepcid) 20 mg PO BID [facility] Last Admin: 01/23/19 09:02 Dose: 20 mg Furosemide (Lasix) 40 mg PO DAILY [facility] Last Admin: 01/23/19 09:01 Dose: 40 mg Guaifenesin (Mucinex) 600 mg PO BID [facility] Last Admin: 01/23/19 09:03 Dose: 600 mg Hydralazine HCl (Apresoline Inj) 10 mg IVP Q4HR PRN PRN Reason: SBP>160 of DBP>100 Cefepime HCl 2 gm/ Sodium (Chloride) 100 mls @ 200 mls/hr IV Q8H [facility] Last Infusion: 01/23/19 09:41 Dose: Infused Ibuprofen (Motrin) 600 mg PO Q6HR PRN PRN Reason: Pain 1 to 4 Insulin Aspart (Novolog) 1 - 9 unit SUBQ 0800,1200,1700,2100 [facility]; Protocol Last Admin: 01/23/19 12:28 Dose: 1 unit Lorazepam (Ativan) 1 mg PO Q6H PRN PRN Reason: Anxiety Last Admin: 01/23/19 05:23 Dose: 1 mg Methylprednisolone (Solu-Medrol (40mg Vial)) 40 mg IVP Q8HR [facility] Mineral Oil (Cavilon) 1 applic TOP PRN PRN PRN Reason: Skin Care Last Admin: 01/22/19 17:04 Dose: 1 applic Montelukast Sodium (Singulair) 10 mg PO QPM [facility] Last Admin: 01/22/19 20:27 Dose: 10 mg Morphine Sulfate (Roxanol) 10 mg PO Q2H PRN PRN Reason: Pain/Dyspnea Last Admin: 01/23/19 00:01 Dose: 10 mg Morphine Sulfate (Roxanol) 5 mg PO QID [facility] Multivitamins/Minerals (Theragran M) 1 tab PO DAILYWM [facility] Last Admin: 01/23/19 09:00 Dose: 1 tab Polyethylene Glycol (Miralax) 17 gm PO DAILY [facility] Last Admin: 01/23/19 09:09 Dose: Not Given Potassium Chloride (K-Dur) 20 meq PO BIDWM [facility] Last Admin: 01/23/19 09:41 Dose: Not Given Prochlorperazine Edisylate (Compazine Inj) 10 mg IVP Q6HR PRN PRN Reason: Nausea / Vomiting Sertraline HCl (Zoloft) 50 mg PO DAILY [facility] Last Admin: 01/23/19 09:03 Dose: 50 mg Sodium Chloride (Normal Saline Flush 0.9%) 10 ml IVP 0100,0900,1700 [facility] Last Admin: 01/23/19 09:10 Dose: 10 ml Sodium Chloride (Normal Saline Flush 0.9%) 10 ml IVP PRN PRN PRN Reason: NEEDED PER PROVIDER ORDERS Last Admin: 01/22/19 17:53 Dose: 10 ml Tamsulosin HCl (Flomax) 0.4 mg PO DAILY [facility] Last Admin: 01/23/19 09:03 Dose: 0.4 mg Albuterol Sulfate [Proair Hfa Inhaler] 1 puffs INH Q6H PRN 08/31/16 Polyethylene Glycol 3350 [Miralax] 17 g PO DAILY 10/19/18 Albuterol 2.5 mg INH Q4H PRN 11/19/18 Atorvastatin Calcium 20 mg PO QPM 12/10/18 Insulin Lispro [Humalog Kwikpen U-100] 0 - 100 unit SQ .PRN SLIDING SCALE MDD sliding scale 12/13/18 Morphine Sulfate [Morphine Sulf Oral (Roxanol)] 5 mg PO TID 12/13/18 predniSONE [Deltasone] 20 mg PO DAILY [facility] Start date 01/16/19 01/14/19 Objective - Vital Signs/Intake & Output Reviewed Vital Signs: Yes Vital Signs: Vital Signs x48h Temp Pulse Pulse Resp BP Pulse Ox 01/23/19 13:00 36 C L 75 11 L 133/59 H 96 01/23/19 11:54 78 14 01/23/19 11:00 36.6 C 83 16 146/71 H 50 L 01/23/19 10:35 94 01/23/19 10:00 91 15 155/71 H 50 L 01/23/19 09:00 78 18 172/84 H 94 01/23/19 07:12 70 13 01/23/19 07:00 36.6 C 95 21 161/64 H 94 01/23/19 06:02 78 13 166/69 H 95 Intake & Output: Intake & Output 01/20/19 01/21/19 01/22/19 01/23/19 23:59 23:59 23:59 23:59 Intake Total 2546 1300 1740 786.667 Output Total 541 415 6559 1100 Balance 2196 400 240 -313.333 - Objective General Appearance: positive: Anxious, Lethargic, Other (Patient responds to verbal and painful stimuli. However unable to hold entire conversation due to mental status changes.) Eyes Bilateral: positive: Normal inspection, PERRL, Conjunctivae nml ENT: positive: ENT inspection nml, Pharynx nml, No signs of dehydration Neck: positive: Thyroid nml, No JVD, Trachea midline. negative: Thyromegaly, Stiff neck, Carotid bruit Respiratory: positive: Chest non-tender, Rales, Rhonchi, Other (Prolonged expiratory phase with decreased breath sounds bibasilarly.). negative: Wheezes Cardiovascular: positive: Regular rate & rhythm, No murmur, No gallop Peripheral Pulses: 2+ Dorsalis pedis (R), 2+ Dorsalis pedis (L) Abdomen: positive: Non-tender, No organomegaly, Nml bowel sounds, No distention. negative: Tenderness Skin: positive: Color nml, No rash, Warm Extremities: positive: Non-tender, Full ROM, Nml appearance, Pedal edema Neurologic/Psychiatric: positive: Disoriented to time, Weakness, Depressed mood/affect - Lab Results Fish Bones: 01/23/19 04:55 01/23/19 04:55 Other Labs: Lab Results x24hrs 01/23/19 01/23/19 01/23/19 Range/Units 12:14 11:46 08:29 WBC (4.8-10.8) x10^3/uL RBC (4.20-5.40) 10^6/uL Hgb (12.0-16.0) g/dL Hct (37.0-47.0) % MCV (81.0-99.0) fL MCH (27.0-31.0) pg MCHC (32.0-36.0) g/dL RDW (12.0-15.0) % Plt Count (130-450) 10^3/uL MPV (7.9-10.8) fL Neut # (Auto) (1.5-6.6) 10^3/uL Lymph # (Auto) (1.5-3.5) 10^3/uL [place] # (Auto) (0.0-1.0) 10^3/uL Eos # (Auto) (0.0-0.7) 10^3/uL Baso # (Auto) (0.0-0.1) 10^3/uL Absolute Nucleated RBC x10^3/uL Nucleated RBC % /100WBC Bld Gas Analysis Time 1154 0836 Sample Site RIGHT RADIAL RIGHT RADIAL ABG pH 7.38 7.38 (7.35-7.45) ABG pCO2 69 H* 61 H* (34-45) mmHg ABG pO2 58 L 70 L (80-100) mmHg ABG HCO3 39.9 H 35.2 H (22.0-26.0) mmol/L ABG Total CO2 42.0 H* 37.1 H (21.0-29.0) MMOL/L ABG O2 Saturation 87 L* 92 L (94-98) % ABG Oximetry Spot Check 96 % ABG Base Excess 12.4 H 8.5 H (-2.0-3.0) mmol/L Heriberto Test POSITIVE POSITIVE Respiration Rate 13 b/min O2 Delivery Device BiPAP HH FNC O2 Liters/Min 50.00 LPM FiO2 60.00 Tidal Volume 591 mL PEEP 5 cmH2O Pressure Support Vent 7 cmH2O EPAP 5 cmH2O IPAP 12 cmH2O Sodium (135-145) mmol/L Potassium (3.5-5.0) mmol/L Chloride (101-111) mmol/L Carbon Dioxide (21-32) mmol/L Anion Gap (6-13) BUN (6-20) mg/dL Creatinine (0.4-1.0) mg/dL Estimated GFR (MDRD) (>89) Glucose (70-100) mg/dL POC Whole Bld Glucose 169 H (70 - 100) mg/dL Calcium (8.5-10.3) mg/dL 01/23/19 01/23/19 01/23/19 Range/Units 07:15 04:55 04:55 WBC 6.3 (4.8-10.8) x10^3/uL RBC 3.37 L (4.20-5.40) 10^6/uL Hgb 9.5 L (12.0-16.0) g/dL Hct 29.8 L (37.0-47.0) % MCV 88.5 (81.0-99.0) fL MCH 28.3 (27.0-31.0) pg MCHC 32.0 (32.0-36.0) g/dL RDW 18.5 H (12.0-15.0) % Plt Count 275 (130-450) 10^3/uL MPV 6.8 L (7.9-10.8) fL Neut # (Auto) 5.7 (1.5-6.6) 10^3/uL Lymph # (Auto) 0.4 L (1.5-3.5) 10^3/uL [place] # (Auto) 0.2 (0.0-1.0) 10^3/uL Eos # (Auto) 0.0 (0.0-0.7) 10^3/uL Baso # (Auto) 0.0 (0.0-0.1) 10^3/uL Absolute Nucleated RBC 0.01 x10^3/uL Nucleated RBC % 0.2 /100WBC Bld Gas Analysis Time Sample Site ABG pH (7.35-7.45) ABG pCO2 (34-45) mmHg ABG pO2 (80-100) mmHg ABG HCO3 (22.0-26.0) mmol/L ABG Total CO2 (21.0-29.0) MMOL/L ABG O2 Saturation (94-98) % ABG Oximetry Spot Check % ABG Base Excess (-2.0-3.0) mmol/L Heriberto Test Respiration Rate b/min O2 Delivery Device O2 Liters/Min LPM FiO2 Tidal Volume mL PEEP cmH2O Pressure Support Vent cmH2O EPAP cmH2O IPAP cmH2O Sodium 140 (135-145) mmol/L Potassium 3.3 L (3.5-5.0) mmol/L Chloride 92 L (101-111) mmol/L Carbon Dioxide 38 H (21-32) mmol/L Anion Gap 10.0 (6-13) BUN 23 H (6-20) mg/dL Creatinine 0.5 (0.4-1.0) mg/dL Estimated GFR (MDRD) 123 (>89) Glucose 170 H (70-100) mg/dL POC Whole Bld Glucose 141 H (70 - 100) mg/dL Calcium 8.5 (8.5-10.3) mg/dL 01/22/19 01/22/19 01/22/19 Range/Units 20:15 16:46 16:09 WBC (4.8-10.8) x10^3/uL RBC (4.20-5.40) 10^6/uL Hgb (12.0-16.0) g/dL Hct (37.0-47.0) % MCV (81.0-99.0) fL MCH (27.0-31.0) pg MCHC (32.0-36.0) g/dL RDW (12.0-15.0) % Plt Count (130-450) 10^3/uL MPV (7.9-10.8) fL Neut # (Auto) (1.5-6.6) 10^3/uL Lymph # (Auto) (1.5-3.5) 10^3/uL [place] # (Auto) (0.0-1.0) 10^3/uL Eos # (Auto) (0.0-0.7) 10^3/uL Baso # (Auto) (0.0-0.1) 10^3/uL Absolute Nucleated RBC x10^3/uL Nucleated RBC % /100WBC Bld Gas Analysis Time 1609 Sample Site RIGHT RADIAL ABG pH 7.41 (7.35-7.45) ABG pCO2 56 H (34-45) mmHg ABG pO2 64 L (80-100) mmHg ABG HCO3 34.9 H (22.0-26.0) mmol/L ABG Total CO2 36.6 H (21.0-29.0) MMOL/L ABG O2 Saturation 91 L (94-98) % ABG Oximetry Spot Check % ABG Base Excess 8.8 H (-2.0-3.0) mmol/L Heriberto Test POSITIVE Respiration Rate b/min O2 Delivery Device NASAL CANNULA O2 Liters/Min 50.00 LPM FiO2 50.00 Tidal Volume mL PEEP cmH2O Pressure Support Vent cmH2O EPAP cmH2O IPAP cmH2O Sodium (135-145) mmol/L Potassium (3.5-5.0) mmol/L Chloride (101-111) mmol/L Carbon Dioxide (21-32) mmol/L Anion Gap (6-13) BUN (6-20) mg/dL Creatinine (0.4-1.0) mg/dL Estimated GFR (MDRD) (>89) Glucose (70-100) mg/dL POC Whole Bld Glucose 218 H 204 H (70 - 100) mg/dL Calcium (8.5-10.3) mg/dL ABX Reporting Has patient been on IV antibiotics over the past 48 hours?: Yes Sepsis Event Note (H) - Evaluation Current Stage of Sepsis: Ruled out (Lactic acid was 1.9 although patient has identifiable Enterobacter cloaca a species in her sputum presumed HCAP) Assessment/Plan - Problem List (1) HCAP (healthcare-associated pneumonia) Impression: Serial CXR's shows stable reticular opacity and emphysema. Continue with IV Ce fepime likely will continue with a prolonged IV antibiotic course as this has been a reinfection with sensitivities to Rocephin as well as IV cefepime, Pulmonary toileting as well as prevention of increased secretions that would cause mucus plugging and worsening of patient's pneumonia and respiratory status. We will continue with nebs, steroids, intermittent BiPAP, pulmonary/RT modalities to improve ventilation and perfusion. Patient due to CODE STATUS may benefit from a bronchoscopy however pulmonology not available and will reassess if patient is refractory to intermittent BiPAP and receiving high flow oxygen. (2) End stage COPD Impression: Continue with current medical management. Patient has poor prognosis long-term and is at high risk for intubation and possible tracheostomDespite complications of pneumonia as well as end-stage COPD patient continues to be full CODE STATUS. Will reevaluate with [employer] who is patient's sister to explain that patient's multiple admissions and of recent admissions have displayed Mental status decline with Hypercapnia and hypoxia, Which may or may not explain patient's mental status attributable to hypoxemic encephalopathy. If patient were to transfer would have to transfer to where patient's primary voip network technician is located. (3) Acute on chronic respiratory failure with hypoxia and hypercapnia Impression: Continue with intermittent BiPAP to stabilize patient's PCO2 that is on the rise and PO2 that is decreasing. Consider bronchoscopy if needed and transferring to a higher level of care. Will obtain a chest x-ray to view for increased pulmonary infiltrates and/or evidence of mucous plugging. Continue with aggressive pulmonary toileting and medical management for now as well as IV antibiotics. (4) IDDM (insulin dependent diabetes mellitus) Impression: Continue with current glycemic control and insulin sliding scale with bolus and basal coverage. (5) Anxiety Impression: Will leave Ativan at 1 mg q. 4-6 as needed and avoid oversedation or cont ributing to further exacerbating patient's encephalopathy. (6) Encephalopathy acute Impression: Multifactorial etiology for encephalopathy. Patient had similar bouts in prior admissions and attributable to medical/drug-induced along with hypoxemia as is the case on this admission. Continue to monitor and try to address underlying etiology. (7) Opioid dependence Impression: Will uptitrate morphine to 5 mg p.o. 4 times daily as this relates to patient's restlessness secondary to Solu-Medrol. Qualifiers: Substance use status: uncomplicated Qualified Code(s): F11.20 - Opioid dependence, uncomplicated (8) Palliative care status Impression: Palliative care service has been seeing patient and re-engaging on goals of care as well as CODE STATUS. Patient has a poor prognosis at this point and continues to steadily decline clinically with no improvement to respiratory status despite aggressive medical management after 4 days of IV antibiotics high flow oxygen, steroids, duo nebs, Diamox which will ultimately be titrated. However patient continues with a steady mental status decline and no significant improvement to her respiratory status as she remains end-stage COPD with reoccurrence HCAP with Enterobacter cloacae, poor prognosis.
[2019-01-23] MEDS: acetaZOLAMIDE 250 MG TABLET PO SCH ×2 (14:24→21:42)
--- NOTE | 2019-01-23 16:28 | XRAY Report ---
Reason: PNA Procedure Date: 01/23/2019 Accession Number: [id number] / [id number] Procedure: XR - Chest 1 View X-Ray CPT Code: 91558 FULL RESULT: EXAM: CHEST RADIOGRAPHY EXAM DATE: 01/23/2019 03:55 PM. CLINICAL HISTORY: PNA. COMPARISON: CHEST 1 VIEW 01/21/2019 10:49 AM CHEST W/ 10/02/2018 11:34 AM. TECHNIQUE: 1 view. FINDINGS: Lungs/Pleura: There is emphysema. Lungs are well expanded. Reticular opacity within the lower lungs is relatively stable. No new areas of airspace disease are seen. No pneumothorax. Mediastinum: Normal heart size. There are thoracic aortic calcifications. Other: None. IMPRESSION: Relatively stable radiographic appearance of the chest. There is nonspecific reticular opacity within the lower lungs. There is underlying emphysema. There is no evidence of pneumothorax. RADIA
[2019-01-23] MEDS: MONTELUKAST 10 MG TABLET PO SCH (20:39)
[2019-01-23] MEDS: ATORVASTATIN 10 MG TABLET PO SCH (20:39)
[2019-01-23] MEDS: hydrALAZINE INJ 20 MG/ML VIAL IVP PRN (21:37)
[2019-01-23] MEDS ORDERED: LORazepam 2 MG/ML VIAL IVP SCH (22:13)
[2019-01-23] MEDS: SODIUM CHLORIDE FLUSH 0.9% 10 ML SYRINGE IVP PRN (23:23)
[2019-01-24 05:14] LABS: ALBUMIN 2.8 g/dL (3.2-5.5); CALCIUM 8.3 mg/dL (8.5-10.3); CREATININE 0.4 mg/dL (0.4-1.0); PHOSPHORUS 3.5 mg/dL (2.5-4.6)
[2019-01-24] MEDS: SODIUM CHLORIDE FLUSH 0.9% 10 ML SYRINGE IVP PRN ×2 (06:04→22:17)
[2019-01-24] MEDS: methylPREDNISolone SUCCINATE 40 MG/ML VIAL IVP SCH ×3 (06:04→22:17)
[2019-01-24] MEDS: acetaZOLAMIDE 250 MG TABLET PO SCH ×3 (06:04→22:16)
[2019-01-24] MEDS: IPRATROPIUM/ALBUTEROL 3 ML NEB INH SCH ×4 (07:44→18:12)
[2019-01-24] MEDS: BUDESONIDE 0.5 MG/2 ML NEB INH SCH ×2 (07:44→18:12)
[2019-01-24] MEDS: CEFEPIME 2 GM in SODIUM CHLORIDE 0.9% MINIBAG 100 ML IV SCH ×2 (08:00→16:45)
[2019-01-24] MEDS: INSULIN ASPART 300 UNIT/3 ML PEN SUBQ SCH ×4 (09:00→21:16)
[2019-01-24] MEDS: POTASSIUM CHLORIDE 20 MEQ TABLET PO SCH ×2 (09:26→17:30)
[2019-01-24] MEDS: guaiFENesin 600 MG TABLET PO SCH ×2 (09:26→21:11)
[2019-01-24] MEDS: TAMSULOSIN 0.4 MG CAPSULE PO SCH (09:27)
[2019-01-24] MEDS: FUROSEMIDE 40 MG TABLET PO SCH (09:27)
[2019-01-24] MEDS: diltiaZEM CD 180 MG CAPSULE PO SCH (09:27)
[2019-01-24] MEDS: MORPHINE SOL 10 MG/0.5 ML SYRINGE PO SCH ×4 (09:27→21:23)
[2019-01-24] MEDS: MULTIVITAMIN W/MINERALS TABLET PO SCH (09:27)
[2019-01-24] MEDS: SERTRALINE 50 MG TABLET PO SCH (09:28)
[2019-01-24] MEDS: FAMOTIDINE 20 MG TABLET PO SCH ×2 (09:28→21:11)
[2019-01-24] MEDS: POLYETHYLENE GLYCOL 3350 17 GM PACKET PO SCH (09:28)
[2019-01-24] MEDS: SODIUM CHLORIDE FLUSH 0.9% 10 ML SYRINGE IVP SCH ×2 (09:28→16:48)
[2019-01-24] MEDS: ENOXAPARIN 40 MG/0.4 ML SYRINGE SUBQ SCH (09:30)
--- NOTE | 2019-01-24 18:25 | PROVIDER PROGRESS NOTE ---
Subjective - Prog Note Date Prog Note Date: 01/24/19 Prog Note Time: 18:23 - Subjective Pt reports feeling: Worse (Mental status waxes and wanes patient has oscillating lucid intervals) Current Medications - Current Medications Current Medications: Active Medications Acetaminophen (Tylenol) 650 mg PO Q4HR PRN PRN Reason: Pain or Fever > 38C (100.4F) Acetazolamide (Diamox) 250 mg PO TID [facility] Last Admin: 01/24/19 14:16 Dose: 250 mg Albuterol () 2.5 mg INH RTQ4H PRN PRN Reason: Wheezing Last Admin: 01/21/19 11:28 Dose: 2.5 mg Albuterol/Ipratropium (Duoneb) 3 ml INH RTQID [facility] Last Admin: 01/24/19 18:12 Dose: 3 ml Atorvastatin Calcium (Lipitor) 20 mg PO QPM [facility] Last Admin: 01/23/19 20:39 Dose: 20 mg Budesonide (Pulmicort) 0.5 mg INH RTBID [facility] Last Admin: 01/24/19 18:12 Dose: 0.5 mg Diltiazem HCl (Cardizem Cd) 180 mg PO DAILY [facility] Last Admin: 01/24/19 09:27 Dose: Not Given Enoxaparin Sodium (Lovenox) 40 mg SUBQ DAILY [facility] Last Admin: 01/24/19 09:30 Dose: 40 mg Famotidine (Pepcid) 20 mg PO BID [facility] Last Admin: 01/24/19 09:28 Dose: Not Given Furosemide (Lasix) 40 mg PO DAILY [facility] Last Admin: 01/24/19 09:27 Dose: 40 mg Guaifenesin (Mucinex) 600 mg PO BID [facility] Last Admin: 01/24/19 09:26 Dose: 600 mg Hydralazine HCl (Apresoline Inj) 10 mg IVP Q4HR PRN PRN Reason: SBP>160 of DBP>100 Last Admin: 01/23/19 21:37 Dose: 10 mg Cefepime HCl 2 gm/ Sodium (Chloride) 100 mls @ 200 mls/hr IV Q8H [facility] Last Infusion: 01/24/19 17:15 Dose: Infused Ibuprofen (Motrin) 600 mg PO Q6HR PRN PRN Reason: Pain 1 to 4 Insulin Aspart (Novolog) 1 - 9 unit SUBQ 0800,1200,1700,2100 [facility]; Protocol Last Admin: 01/24/19 16:58 Dose: 1 unit Lorazepam (Ativan) 1 mg PO Q6H PRN PRN Reason: Anxiety Last Admin: 01/23/19 22:00 Dose: 1 mg Methylprednisolone (Solu-Medrol (40mg Vial)) 40 mg IVP Q8HR [facility] Last Admin: 01/24/19 14:16 Dose: 40 mg Mineral Oil (Cavilon) 1 applic TOP PRN PRN PRN Reason: Skin Care Last Admin: 01/22/19 17:04 Dose: 1 applic Montelukast Sodium (Singulair) 10 mg PO QPM [facility] Last Admin: 01/23/19 20:39 Dose: 10 mg Morphine Sulfate (Roxanol) 10 mg PO Q2H PRN PRN Reason: Pain/Dyspnea Last Admin: 01/23/19 21:58 Dose: 10 mg Morphine Sulfate (Roxanol) 5 mg PO QID [facility] Last Admin: 01/24/19 17:22 Dose: 5 mg Multivitamins/Minerals (Theragran M) 1 tab PO DAILYWM [facility] Last Admin: 01/24/19 09:27 Dose: 1 tab Polyethylene Glycol (Miralax) 17 gm PO DAILY [facility] Last Admin: 01/24/19 09:28 Dose: Not Given Potassium Chloride (K-Dur) 20 meq PO BIDWM [facility] Last Admin: 01/24/19 17:30 Dose: 20 meq Prochlorperazine Edisylate (Compazine Inj) 10 mg IVP Q6HR PRN PRN Reason: Nausea / Vomiting Sertraline HCl (Zoloft) 50 mg PO DAILY [facility] Last Admin: 01/24/19 09:28 Dose: 50 mg Sodium Chloride (Normal Saline Flush 0.9%) 10 ml IVP 0100,0900,1700 [facility] Last Admin: 01/24/19 16:48 Dose: 10 ml Sodium Chloride (Normal Saline Flush 0.9%) 10 ml IVP PRN PRN PRN Reason: NEEDED PER PROVIDER ORDERS Last Admin: 01/24/19 06:04 Dose: 10 ml Tamsulosin HCl (Flomax) 0.4 mg PO DAILY [facility] Last Admin: 01/24/19 09:27 Dose: Not Given Albuterol Sulfate [Proair Hfa Inhaler] 1 puffs INH Q6H PRN 08/31/16 Polyethylene Glycol 3350 [Miralax] 17 g PO DAILY 10/19/18 Albuterol 2.5 mg INH Q4H PRN 11/19/18 Atorvastatin Calcium 20 mg PO QPM 12/10/18 Insulin Lispro [Humalog Kwikpen U-100] 0 - 100 unit SQ .PRN SLIDING SCALE MDD sliding scale 12/13/18 Morphine Sulfate [Morphine Sulf Oral (Roxanol)] 5 mg PO TID 12/13/18 predniSONE [Deltasone] 20 mg PO DAILY [facility] Start date 01/16/19 01/14/19 Objective - Vital Signs/Intake & Output Reviewed Vital Signs: Yes Vital Signs: Vital Signs x48h Temp Pulse Pulse Resp BP Pulse Ox 01/24/19 18:13 88 16 01/24/19 17:00 36.9 C 94 18 175/72 H 93 01/24/19 15:00 91 19 140/64 H 93 01/24/19 13:00 89 18 162/89 H 93 01/24/19 11:28 89 18 01/24/19 11:00 106 H 29 H 137/61 H 94 Intake & Output: Intake & Output 01/21/19 01/22/19 01/23/19 01/24/19 23:59 23:59 23:59 23:59 Intake Total 1300 1740 1936.667 465 Output Total 900 1500 1900 1100 Balance 400 240 36.376 -063 - Objective General Appearance: positive: Moderate distress, Anxious, Lethargic, Other (Patient has waxing and waning lucid intervals is arousable) Eyes Bilateral: positive: Normal inspection, PERRL, Conjunctivae nml ENT: positive: ENT inspection nml, Pharynx nml, No signs of dehydration Neck: positive: Nml inspection, Thyroid nml, No JVD, Trachea midline. negative: Thyromegaly, Carotid bruit, Swelling/bruising Respiratory: positive: Chest non-tender, Rhonchi (Prolonged expiratory phase with decreased breath sounds bilateral to the bases). negative: Wheezes, Rales Cardiovascular: positive: Regular rate & rhythm, No murmur, No gallop Peripheral Pulses: 2+ Dorsalis pedis (R), 2+ Dorsalis pedis (L) Skin: positive: Color nml, No rash, Dry Extremities: positive: Non-tender, Full ROM, Nml appearance, Pedal edema. negative: Calf tenderness, Joint swelling, Florecita's sign/cords Neurologic/Psychiatric: positive: Weakness, Depressed mood/affect, Other (Due to patient's hypoxemic encephalopathy difficult to assess full neurologic and psychiatric evaluation.) Babinski Reflex: Right: Absent, Left: Absent - Lab Results Fish Bones: 01/23/19 04:55 01/24/19 04:45 Other Labs: Lab Results x24hrs 01/24/19 01/24/19 01/24/19 Range/Units 16:44 11:27 08:09 Sodium (135-145) mmol/L Potassium (3.5-5.0) mmol/L Chloride (101-111) mmol/L Carbon Dioxide (21-32) mmol/L Anion Gap (6-13) BUN (6-20) mg/dL Creatinine (0.4-1.0) mg/dL Estimated GFR (MDRD) (>89) Glucose (70-100) mg/dL POC Whole Bld Glucose 145 H 150 H 152 H (70 - 100) mg/dL Calcium (8.5-10.3) mg/dL Phosphorus (2.5-4.6) mg/dL Albumin (3.2-5.5) g/dL 01/24/19 01/23/19 Range/Units 04:45 20:35 Sodium 140 (135-145) mmol/L Potassium 3.6 (3.5-5.0) mmol/L Chloride 94 L (101-111) mmol/L Carbon Dioxide 38 H (21-32) mmol/L Anion Gap 8.0 (6-13) BUN 19 (6-20) mg/dL Creatinine 0.4 (0.4-1.0) mg/dL Estimated GFR (MDRD) 159 (>89) Glucose 172 H (70-100) mg/dL POC Whole Bld Glucose 200 H (70 - 100) mg/dL Calcium 8.3 L (8.5-10.3) mg/dL Phosphorus 3.5 (2.5-4.6) mg/dL Albumin 2.8 L (3.2-5.5) g/dL - Diagnostic Imaging Diagnostic Imaging Results: positive: Final report reviewed (Chest x-ray reviewed and emphysematous changes seen) ABX Reporting Has patient been on IV antibiotics over the past 48 hours?: Yes Sepsis Event Note (H) - Evaluation Current Stage of Sepsis: Ruled out (Lactic acid was 1.9 although patient has identifiable Enterobacter cloaca a species in her sputum presumed HCAP) Assessment/Plan - Problem List (1) HCAP (healthcare-associated pneumonia) Impression: Secondary to reinfection of Enterobacter cloacae that is sensitive to IV cefepime which we will can be continued for a total of 2 weeks. Continue with current medical management. (2) End stage COPD Impression: Patient has end-stage COPD which currently at this time has been deteriorating and PCO2 has been the highest at 69 with a PO2 of 58 appears to be compensated as pH and bicarb appear to be normal. In the past patient has ranged PCO2 of 51-68, PO2 range has been 63-119. Patient likely will require a tracheostomy if intubated and with complications that will be attributable to maintenance of tracheostomy. Primary commission specialist will likely need to accept patient at transferring facility if patient gets intubated. Patient has complications to end-stage COPD with mental deterioration and hypoxemic encephalopathy. Plan of care was conveyed to palliative care nurse practitioner as she has also reached out to the direct power of employment attorney to update patient status. Patient has a poor prognosis. Continue with current medical management. (3) Acute on chronic respiratory failure with hypoxia and hypercapnia Impression: Secondary to end-stage COPD along with age. We will continue with current medical management. Intermittent BiPAP has not proved to be effective and patient is currently on high flow oxygen that is being titrated with FiO2 as per RT. Poor prognosis. (4) IDDM (insulin dependent diabetes mellitus) Impression: Continue with glycemic control. Patient has been receiving down titration doses of Solu-Medrol (5) Anxiety Impression: Patient has been receiving Ativan as needed for episodes of anxiety which has altered patient's vital signs as well as oxygenation at times. (6) Encephalopathy acute Impression: Hypoxemic encephalopathy with worsening blood gas trends on this admission att ributable to worsening end-stage COPD with reinfection of age With underlying organism of Enterobacter cloacae. Would continue to address underlying etiologies, with high flow oxygen at this point and maximize ventilation and perfusion however patient not tolerating very well intermittent BiPAP with worsening blood gases and the likelihood of a poor prognosis at this point. Patient was on trilogy act with [facility] however patient is noncompliant with this. (7) Opioid dependence Impression: Morphine has been titrated to therapeutic range and will continue with this as per palliative care service. Qualifiers: Substance use status: uncomplicated Qualified Code(s): F11.20 - Opioid dependence, uncomplicated (8) Palliative care status Impression: Patient's prognosis has been poor and deteriorating over time as patient has required intermittent BiPAP which has not improved patient's blood gases in fact patient has had worsening of PCO2 as well as PO2 levels with hypoxemic encephalopathy and declining of mental status as it pertains to her end-stage COPD and reinfection with HCAP Caused by Enterobacter cloaca a currently on IV cefepime. Patient continues on disease trajectory and poor prognosis at this point. DPOA was contacted and left a message on patient's plan of care along with an update on patient's status. Palliative care team has been following patient periodically.
[2019-01-24] MEDS: ATORVASTATIN 10 MG TABLET PO SCH (21:05)
[2019-01-24] MEDS: MONTELUKAST 10 MG TABLET PO SCH (21:06)
[2019-01-25] MEDS: CEFEPIME 2 GM in SODIUM CHLORIDE 0.9% MINIBAG 100 ML IV SCH ×4 (00:20→23:15)
[2019-01-25] MEDS: SODIUM CHLORIDE FLUSH 0.9% 10 ML SYRINGE IVP SCH ×3 (02:21→17:23)
[2019-01-25] MEDS: acetaZOLAMIDE 250 MG TABLET PO SCH ×3 (06:40→21:56)
[2019-01-25] MEDS: methylPREDNISolone SUCCINATE 40 MG/ML VIAL IVP SCH ×3 (06:40→21:53)
[2019-01-25] MEDS: IPRATROPIUM/ALBUTEROL 3 ML NEB INH SCH ×4 (08:11→21:17)
[2019-01-25] MEDS: BUDESONIDE 0.5 MG/2 ML NEB INH SCH ×2 (08:12→21:17)
[2019-01-25] MEDS: diltiaZEM CD 180 MG CAPSULE PO SCH (08:51)
[2019-01-25] MEDS: FAMOTIDINE 20 MG TABLET PO SCH ×2 (08:52→21:09)
[2019-01-25] MEDS: FUROSEMIDE 40 MG TABLET PO SCH (08:52)
[2019-01-25] MEDS: SERTRALINE 50 MG TABLET PO SCH (08:52)
[2019-01-25] MEDS: MULTIVITAMIN W/MINERALS TABLET PO SCH (08:59)
[2019-01-25] MEDS: guaiFENesin 600 MG TABLET PO SCH ×2 (09:01→21:11)
[2019-01-25] MEDS: MORPHINE SOL 10 MG/0.5 ML SYRINGE PO SCH ×4 (09:03→21:55)
[2019-01-25] MEDS: TAMSULOSIN 0.4 MG CAPSULE PO SCH (09:04)
[2019-01-25] MEDS: POTASSIUM CHLORIDE 20 MEQ TABLET PO SCH ×2 (09:04→17:19)
[2019-01-25] MEDS: POLYETHYLENE GLYCOL 3350 17 GM PACKET PO SCH (09:04)
[2019-01-25] MEDS: INSULIN ASPART 300 UNIT/3 ML PEN SUBQ SCH ×4 (09:06→21:05)
[2019-01-25] MEDS: ENOXAPARIN 40 MG/0.4 ML SYRINGE SUBQ SCH (09:07)
[2019-01-25] MEDS: hydrALAZINE INJ 20 MG/ML VIAL IVP PRN (11:15)
[2019-01-25] MEDS: MORPHINE SOL 10 MG/0.5 ML SYRINGE PO PRN ×2 (13:07→21:07)
--- NOTE | 2019-01-25 14:25 | PROVIDER PROGRESS NOTE ---
Subjective - Prog Note Date Prog Note Date: 01/25/19 Prog Note Time: 14:23 - Subjective Pt reports feeling: Improved Subjective: Mild improvement shortness of breath patient was lucid enough to have a 5-minute conversation however patient speaks in yes or no with nodding of acknowledgment. Patient was asked if she knew and understood that intubation was likely the last stop in terms of exhausting medical management with an eventual tracheostomy. Patient acknowledged that yes that she understood. However I have my suspicions on patient's true health literacy as to understand the full nature of or gravity of her condition. Current Medications - Current Medications Current Medications: Active Medications Acetaminophen (Tylenol) 650 mg PO Q4HR PRN PRN Reason: Pain or Fever > 38C (100.4F) Acetazolamide (Diamox) 250 mg PO TID [facility] Last Admin: 01/25/19 14:00 Dose: Not Given Albuterol () 2.5 mg INH RTQ4H PRN PRN Reason: Wheezing Last Admin: 01/21/19 11:28 Dose: 2.5 mg Albuterol/Ipratropium (Duoneb) 3 ml INH RTQID [facility] Last Admin: 01/25/19 12:18 Dose: 3 ml Atorvastatin Calcium (Lipitor) 20 mg PO QPM [facility] Last Admin: 01/24/19 21:05 Dose: 20 mg Budesonide (Pulmicort) 0.5 mg INH RTBID [facility] Last Admin: 01/25/19 08:12 Dose: 0.5 mg Diltiazem HCl (Cardizem Cd) 180 mg PO DAILY [facility] Last Admin: 01/25/19 08:51 Dose: 180 mg Enoxaparin Sodium (Lovenox) 40 mg SUBQ DAILY [facility] Last Admin: 01/25/19 09:07 Dose: 40 mg Famotidine (Pepcid) 20 mg PO BID [facility] Last Admin: 01/25/19 08:52 Dose: 20 mg Furosemide (Lasix) 40 mg PO DAILY [facility] Last Admin: 01/25/19 08:52 Dose: 40 mg Guaifenesin (Mucinex) 600 mg PO BID [facility] Last Admin: 01/25/19 09:01 Dose: Not Given Hydralazine HCl (Apresoline Inj) 10 mg IVP Q4HR PRN PRN Reason: SBP>160 of DBP>100 Last Admin: 01/25/19 11:15 Dose: 10 mg Cefepime HCl 2 gm/ Sodium (Chloride) 100 mls @ 200 mls/hr IV Q8H [facility] Last Infusion: 01/25/19 08:15 Dose: Infused Ibuprofen (Motrin) 600 mg PO Q6HR PRN PRN Reason: Pain 1 to 4 Insulin Aspart (Novolog) 1 - 9 unit SUBQ 0800,1200,1700,2100 [facility]; Protocol Last Admin: 01/25/19 12:04 Dose: Not Given Lorazepam (Ativan) 1 mg PO Q6H PRN PRN Reason: Anxiety Last Admin: 01/23/19 22:00 Dose: 1 mg Methylprednisolone (Solu-Medrol (40mg Vial)) 40 mg IVP Q8HR [facility] Last Admin: 01/25/19 14:07 Dose: 40 mg Mineral Oil (Cavilon) 1 applic TOP PRN PRN PRN Reason: Skin Care Last Admin: 01/22/19 17:04 Dose: 1 applic Montelukast Sodium (Singulair) 10 mg PO QPM [facility] Last Admin: 01/24/19 21:06 Dose: 10 mg Morphine Sulfate (Roxanol) 10 mg PO Q2H PRN PRN Reason: Pain/Dyspnea Last Admin: 01/25/19 13:07 Dose: 10 mg Morphine Sulfate (Roxanol) 5 mg PO QID [facility] Last Admin: 01/25/19 14:01 Dose: Not Given Multivitamins/Minerals (Theragran M) 1 tab PO DAILYWM [facility] Last Admin: 01/25/19 08:59 Dose: 1 tab Polyethylene Glycol (Miralax) 17 gm PO DAILY [facility] Last Admin: 01/25/19 09:04 Dose: Not Given Potassium Chloride (K-Dur) 20 meq PO BIDWM [facility] Last Admin: 01/25/19 09:04 Dose: Not Given Prochlorperazine Edisylate (Compazine Inj) 10 mg IVP Q6HR PRN PRN Reason: Nausea / Vomiting Sertraline HCl (Zoloft) 50 mg PO DAILY [facility] Last Admin: 01/25/19 08:52 Dose: 50 mg Sodium Chloride (Normal Saline Flush 0.9%) 10 ml IVP 0100,0900,1700 [facility] Last Admin: 01/25/19 06:40 Dose: 10 ml Sodium Chloride (Normal Saline Flush 0.9%) 10 ml IVP PRN PRN PRN Reason: NEEDED PER PROVIDER ORDERS Last Admin: 01/24/19 22:17 Dose: 10 ml Tamsulosin HCl (Flomax) 0.4 mg PO DAILY [facility] Last Admin: 01/25/19 09:04 Dose: Not Given Albuterol Sulfate [Proair Hfa Inhaler] 1 puffs INH Q6H PRN 08/31/16 Polyethylene Glycol 3350 [Miralax] 17 g PO DAILY 10/19/18 Albuterol 2.5 mg INH Q4H PRN 11/19/18 Atorvastatin Calcium 20 mg PO QPM 12/10/18 Insulin Lispro [Humalog Kwikpen U-100] 0 - 100 unit SQ .PRN SLIDING SCALE MDD sliding scale 12/13/18 Morphine Sulfate [Morphine Sulf Oral (Roxanol)] 5 mg PO TID 12/13/18 predniSONE [Deltasone] 20 mg PO DAILY [facility] Start date 01/16/19 01/14/19 Objective - Vital Signs/Intake & Output Reviewed Vital Signs: Yes Vital Signs: Vital Signs x48h Pulse Pulse Resp BP BP Pulse Ox 01/25/19 13:00 110 H 18 177/76 H 90 L 01/25/19 12:20 110 H 22 01/25/19 11:45 182/80 H 01/25/19 11:35 107 H 17 172/72 H 95 01/25/19 11:28 96 22 176/75 H 95 01/25/19 11:20 94 18 175/72 H 96 01/25/19 11:15 185/88 H 01/25/19 11:00 103 H 19 185/88 H 95 01/25/19 09:00 74 21 168/67 H 95 01/25/19 08:14 102 H 20 01/25/19 06:50 112 H 18 171/70 H 97 Intake & Output: Intake & Output 01/22/19 01/23/19 01/24/19 01/25/19 23:59 23:59 23:59 23:59 Intake Total 1740 1936.667 565 250 Output Total 1500 1900 1350 1050 Balance 240 36.667 -785 -800 - Objective General Appearance: positive: Moderate distress, Anxious Eyes Bilateral: positive: Normal inspection, PERRL, EOMI ENT: positive: ENT inspection nml, Pharynx nml, No signs of dehydration Neck: positive: Nml inspection, Trachea midline. negative: No JVD, Thyromegaly, Carotid bruit, Swelling/bruising Respiratory: positive: Chest non-tender, Wheezes (Faint to both bases), Rhonchi (Prolonged expiratory phase with bilateral decrease in breath sounds) Cardiovascular: positive: Regular rate & rhythm, No murmur, No gallop. negative: Irregularly irregular, JVD present, Systolic murmur, Diastolic murmur Peripheral Pulses: 2+ Dorsalis pedis (R), 2+ Dorsalis pedis (L) Abdomen: positive: No organomegaly, Nml bowel sounds, No distention, Tenderness Skin: positive: Color nml, No rash, Warm Extremities: positive: Non-tender, Full ROM, Nml appearance Neurologic/Psychiatric: positive: Oriented x3, CN's nml (2-12), Disoriented to time, Depressed mood/affect, Other (Surprisingly a little bit more lucid to participateAnd neurological assessment. Recent is dismissive however denies hallucination or psychomotor retardation.) - Lab Results Fish Bones: 01/23/19 04:55 01/24/19 04:45 Other Labs: Lab Results x24hrs 01/25/19 01/25/19 01/25/19 Range/Units 12:15 12:03 08:36 POC Whole Bld Glucose 138 H 131 H 159 H (70 - 100) mg/dL 01/24/19 01/24/19 Range/Units 21:15 16:44 POC Whole Bld Glucose 144 H 145 H (70 - 100) mg/dL ABX Reporting Has patient been on IV antibiotics over the past 48 hours?: Yes Sepsis Event Note (H) - Evaluation Current Stage of Sepsis: Ruled out (Lactic acid was 1.9 although patient has identifiable Enterobacter cloaca a species in her sputum presumed HCAP) Assessment/Plan - Problem List (1) HCAP (healthcare-associated pneumonia) Impression: To continue with IV cefepime to cover for Enterobacter cloacae which is a reinfection from last admission. This along with end-stage COPD likely contributing factors of worsening respiratory function with acute on chronic hypoxemic respiratory failure (2) End stage COPD Impression: Continue with current medical management as well as non-invasive positive pressure ventilation with intermittent BiPAP if tolerates. Currently on high flow oxygen at 50 L with an FiO2 to be dehydrated by RT. Serial ABGs have demonstrated persistent hypercapnia as well as worsening hypoxemia that has been attributable to mental status decline and hypoxemic encephalopathy. Palliative care service has been in contact with direct power of tax attorney who is the sister Nancy who I left a message and explained and updated patient's current status. Possible care conference/family conference will be held likely tomorrow versus next week. (3) Acute on chronic respiratory failure with hypoxia and hypercapnia Impression: Continue with current medical management with IV steroids, IV cefepime, duo nebs, trilogy which patient does not tolerate, intermittent BiPAP which patient does not tolerate, currently on high flow oxygen at 50 L with FiO2 being titrated by RT, incentive spirometry, aggressive pulmonary toileting. (4) IDDM (insulin dependent diabetes mellitus) Impression: Continue to titrate glycemic control with bolus and basal coverage. (5) Anxiety Impression: Continue with Ativan as needed. (6) Encephalopathy acute Impression: Hypoxemic etiology most plausible for waxing and waning encephalopathy with lucid intervals able to have conversation today. Patient was very dismissive and answered with "yes" and no answers with no discernible understanding of the gravity of her current medical condition which I explained has worsened over the course of several months. (7) Opioid dependence Impression: Patient continues with morphine as scheduled per palliative care service. Qualifiers: Substance use status: uncomplicated Qualified Code(s): F11.20 - Opioid dependence, uncomplicated (8) Palliative care status Impression: Palliative care service has been in touch with power of tax attorney and likelihood of family conference will be held on the weekend as power of tax attorney works Monday through Monday and is unable to have time off from work. Tomorrow will visit with family if available to discuss patient's status as well as prognosis and the eventual decision of perhaps changing her CODE STATUS. Patient likely does not understand the gravity of her medical condition with possible personal perception and/or help C issues. Will again convey that patient's prognosis is poor and has worsened over the course of these past several admissions to power of tax attorney in order to consider for changing CODE STATUS as this would pertain to her mental decline, and prevent for either an unnecessary traumatic code with resuscitative efforts with intubation. (9) Hypertension Impression: This has been uncontrolled and will titrate diltiazem to 240 mg p.o. daily. Qualifiers: Hypertension type: essential hypertension Qualified Code(s): I10 - Esselizabeth ialuther (primary) hypertension
[2019-01-25] MEDS: ATORVASTATIN 10 MG TABLET PO SCH (21:08)
[2019-01-25] MEDS: LORazepam 1 MG TABLET PO PRN (21:09)
[2019-01-25] MEDS: MONTELUKAST 10 MG TABLET PO SCH (21:11)
[2019-01-25] MEDS: SODIUM CHLORIDE FLUSH 0.9% 10 ML SYRINGE IVP PRN (21:54)
[2019-01-26] MEDS: MORPHINE SOL 10 MG/0.5 ML SYRINGE PO PRN ×3 (03:26→18:13)
[2019-01-26] MEDS: SODIUM CHLORIDE FLUSH 0.9% 10 ML SYRINGE IVP SCH ×3 (05:33→18:16)
[2019-01-26] MEDS: acetaZOLAMIDE 250 MG TABLET PO SCH ×3 (06:34→22:24)
[2019-01-26] MEDS: methylPREDNISolone SUCCINATE 40 MG/ML VIAL IVP SCH ×3 (06:35→22:24)
[2019-01-26] MEDS: IPRATROPIUM/ALBUTEROL 3 ML NEB INH SCH ×4 (07:18→20:11)
[2019-01-26] MEDS: BUDESONIDE 0.5 MG/2 ML NEB INH SCH ×2 (07:18→20:11)
[2019-01-26] MEDS: INSULIN ASPART 300 UNIT/3 ML PEN SUBQ SCH ×4 (08:08→20:47)
[2019-01-26] MEDS: CEFEPIME 2 GM in SODIUM CHLORIDE 0.9% MINIBAG 100 ML IV SCH ×3 (08:11→23:47)
[2019-01-26] MEDS: POTASSIUM CHLORIDE 20 MEQ TABLET PO SCH ×2 (08:26→18:15)
[2019-01-26] MEDS: FUROSEMIDE 40 MG TABLET PO SCH (08:26)
[2019-01-26] MEDS: SERTRALINE 50 MG TABLET PO SCH (08:26)
[2019-01-26] MEDS: FAMOTIDINE 20 MG TABLET PO SCH ×2 (08:26→20:50)
[2019-01-26] MEDS: diltiaZEM CD 120 MG CAPSULE PO SCH (08:26)
[2019-01-26] MEDS: ENOXAPARIN 40 MG/0.4 ML SYRINGE SUBQ SCH (08:27)
[2019-01-26] MEDS: guaiFENesin 600 MG TABLET PO SCH ×2 (08:30→20:49)
[2019-01-26] MEDS: MORPHINE SOL 10 MG/0.5 ML SYRINGE PO SCH ×4 (08:32→22:27)
[2019-01-26] MEDS: TAMSULOSIN 0.4 MG CAPSULE PO SCH (08:35)
[2019-01-26] MEDS: MULTIVITAMIN W/MINERALS TABLET PO SCH (08:35)
[2019-01-26] MEDS: POLYETHYLENE GLYCOL 3350 17 GM PACKET PO SCH (08:47)
[2019-01-26 15:56] LABS: ABG BASE EXCESS 14.4 mmol/L (-2.0-3.0); ABG HCO3 39.7 mmol/L (22.0-26.0); ABG PCO2 53 mmHg (34-45); ALLEN TEST POSITIVE
[2019-01-26 16:00] LABS: ABG PO2 46 mmHg (80-100)
[2019-01-26 16:01] LABS: ABG OXYGEN SATURATION 83 % (94-98); ABG TCO2 41.3 MMOL/L (21.0-29.0)
[2019-01-26 17:28] LABS: ABG HCO3 38.1 mmol/L (22.0-26.0); ABG PCO2 54 mmHg (34-45); ABG PH 7.47 (7.35-7.45); ABG PO2 86 mmHg (80-100)
[2019-01-26 17:29] LABS: ABG BASE EXCESS 12.5 mmol/L (-2.0-3.0); ABG OXYGEN SATURATION 96 % (94-98); ALLEN TEST POSITIVE
[2019-01-26 17:32] LABS: ABG TCO2 39.8 MMOL/L (21.0-29.0)
--- NOTE | 2019-01-26 17:38 | MISCELLANEOUS PROVIDER NOTE ---
Miscellaneous Provider Note - - Note: Subjective: Patient is able to have lucid intervals and converse with me for about 1 minute or so with gasping of breath in between broken 1 word sentences. Objective: Vital signs stable currently afebrile, heart rate 74, respiratory rate 16, blood pressure 178/85 currently breathing at 91-93% O2 saturation on 50 L HFO previously at 36% FiO2. Due to worsening ABGs patient was increased to a 50% FiO2 now on 40 L. General: Patient is alert interacts briefly with pursed lips broken sentences and in moderate respiratory distress at times. Chronically ill-appearing. Obese. HEENT: No buccal lesions. NCAT. Neck: No JVD no bruits no lymphadenopathy no thyromegaly CV/lungs: RRR. No murmurs gallops clicks or rubs. Decreased breath sounds with expiratory rhonchi poor inspiratory and expiratory airway breathing. Increased work of breath with no visible retractions no wheezing no rales. Abdomen: Soft nontender nondistended positive bowel sounds all quads no HSM Extremities and skin: no edema clubbing or cyanosis next Neuro: Cranial nerves II to XII grossly intact. Decreased mentation at times with no hallucinations. No psychomotor retardation. Labs: Reviewed. Blood gases show a pH of 7.468, PCO2 53.8, PO2 of 86.4, bicarb of 38.1 on 50% F iO2 and 40 LPM Imaging: Reviewed Assessment/plan: ABX Reporting Has patient been on IV antibiotics over the past 48 hours?: Yes Sepsis Event Note (H) - Evaluation Current Stage of Sepsis: Ruled out (Lactic acid was 1.9 although patient has identifiable Enterobacter cloaca a species in her sputum presumed HCAP) - Problem List (1) HCAP (healthcare-associated pneumonia) Impression: Patient currently is he is on day #7 of IV cefepime. To continue with IV cefepime to cover for Enterobacter cloacae which is a reinfection from last admission. This along with end-stage COPD likely contributing factors of worsening respiratory function with acute on chronic hypoxemic respiratory failure. Would anticipate patient continuing for at least 1 more week of IV antibiotics along with respiratory and pulmonary treatments as delineated for end-stage COPD as well as for acute on chronic hypoxemic hypercapnic respiratory failure. (2) End stage COPD Impression: Continue with current medical management as well as non-invasive positive pressure ventilation with intermittent BiPAP if tolerates. Currently on high flow oxygen at 40 L with an FiO2 at 50% Which is being adjusted by RT. Serial ABGs have demonstrated persistent hypercapnia, Has now improved somewhat but worsening hypoxemia that has been attributable to mental status decline and hypoxemic encephalopathy. Palliative care service has been in contact with direct power of scale tank operator who is the sister Nancy, Who I met today along with daughter and son to go over goals of care and anticipatory goals as it relates the trajectory of patient's current medical status. I had explained on the mental status and decline due to hypoxemic encephalopathy and they seem to understand this. However, I believe they will discuss further on whether to change CODE STATUS to a limited with no intubation but they will need to talk to patient and come to a consensus about this. We will obtain a chest x-ray today. Consider transferring to a higher level care for possible bronchoscopy and/or having a calcine furnace loader to evaluate for possible intubation and tracheostomy. (3) Acute on chronic respiratory failure with hypoxia and hypercapnia Impression: Continue with current medical management with IV steroids, IV cefepime, duo nebs, trilogy which patient does not tolerate, intermittent BiPAP which patient does not tolerate, currently on high flow oxygen at 40 L with FiO2 at 50% being titrated by RT, incentive spirometry, aggressive pulmonary toileting. (4) IDDM (insulin dependent diabetes mellitus) Impression: Continue to titrate glycemic control with bolus and basal coverage. (5) Anxiety Impression: Continue with Ativan as needed. (6) Encephalopathy acute Impression: Patient actually looks slightly better today however her end-stage COPD as well as reinfection with H Still paces her at high risk for intubation and CV complications with neurological impairment. Underlying etiology is hypoxemia. Patient was very dismissive and answered with "yes" and no answers with no discernible understanding of the gravity of her current medical condition which I explained has worsened over the course of several months. (7) Opioid dependence Impression: Patient continues with morphine as scheduled per palliative care service. Qualifiers: Substance use status: uncomplicated Qualified Code(s): F11.20 - Opioid dependence, uncomplicated (8) Palliative care status Impression: Family meeting was done today with goals of care readdress. Family will likely discuss patient's total overall care I went over specifically on different types of scenarios that would present with possible intubation tracheostomy and the inevitable of unable to wean off vent. I explained to the direct power of scale tank operator who is a sister that her blood gases have been the worse on this admission and she displays persistent hypoxia despite optimal oxygenation with high flow oxygen without compromising respiratory drive or increasing PCO2 levels.Despite conversation with direct power of scale tank operator the status quo remains that she continues to be full code with all necessary invasive and medical management will continue to be in place despite many unknowns and complications related to her End-stage COPD. As previously stated Patient likely does not understand the gravity of her medical condition with possible personal perception and/or help C issues. During family meeting I again reemphasized patient's prognosis is poor and has worsened over the course of these past several admissions to power of scale tank operator in order to consider for changing CODE STATUS as this would pertain to her mental decline, and prevent for either an unnecessary traumatic code with resuscitative efforts with intubation. (9) Hypertension Impression: This has been uncontrolled, Continue with diltiazem to 240 mg p.o. daily. Qualifiers: Hypertension type: essential hypertension Qualified Code(s): I10 - Essential (primary) hypertension
--- NOTE | 2019-01-26 18:25 | XRAY Report ---
Reason: Evaluation of worsening pneumonia with hypoxemia Procedure Date: 01/26/2019 Accession Number: [id number] / [id number] Procedure: XR - Chest 1 View X-Ray CPT Code: 54633 FULL RESULT: EXAM: CHEST RADIOGRAPHY EXAM DATE: 01/26/2019 05:55 PM. CLINICAL HISTORY: Evaluation of worsening pneumonia with hypoxemia. COMPARISON: CHEST 1 VIEW 01/23/2019 3:17 PM CHEST W/ 10/02/2018 11:34 AM. TECHNIQUE: 1 view. FINDINGS: Lungs/Pleura: Emphysematous changes with multiple areas of scarring. The right upper lobe nodule similar. There may be more infiltrate or atelectasis in the right lower lobe. Increased parenchymal markings in the lower lung [place]. Mediastinum: Within exam limitations, the cardiomediastinal contour is normal. Other: None. IMPRESSION: 1. There may be more infiltrate/atelectasis in the right lower lobe. 2. Emphysematous changes. 3. Right upper lung mass again visualized RADIA
[2019-01-26] MEDS: ATORVASTATIN 10 MG TABLET PO SCH (20:50)
[2019-01-26] MEDS: MONTELUKAST 10 MG TABLET PO SCH (20:50)
[2019-01-26] MEDS: LORazepam 1 MG TABLET PO PRN (22:24)
[2019-01-26 22:34] LABS: ABG OXYGEN SATURATION 97 % (94-98); ABG PCO2 57 mmHg (34-45); ABG PH 7.42 (7.35-7.45); ABG PO2 91 mmHg (80-100); ALLEN TEST POSITIVE
[2019-01-27] MEDS: SODIUM CHLORIDE FLUSH 0.9% 10 ML SYRINGE IVP SCH ×3 (04:35→18:30)
[2019-01-27] MEDS: MORPHINE SOL 10 MG/0.5 ML SYRINGE PO PRN ×4 (04:35→16:23)
[2019-01-27 05:40] LABS: BASOPHILS % (AUTO) 0.4 %; EOSINOPHILS % (AUTO) 0.1 %; HGB - HEMOGLOBIN 10.2 g/dL (12.0-16.0); LYMPHOCYTES # (AUTO) 0.3 10^3/uL (1.5-3.5); LYMPHOCYTES % (AUTO) 3.9 %; MEAN CORPUSCULAR HEMOGLOBIN 28.8 pg (27.0-31.0); MEAN CORPUSCULAR HGB CONC 32.4 g/dL (32.0-36.0); MEAN CORPUSCULAR VOLUME 88.7 fL (81.0-99.0); MEAN PLATELET VOLUME 6.6 fL (7.9-10.8); MONOCYTES # (AUTO) 0.1 10^3/uL (0.0-1.0); MONOCYTES % (AUTO) 1.7 %; NEUTROPHILS # (AUTO) 6.8 10^3/uL (1.5-6.6); NEUTROPHILS % (AUTO) 93.9 %; PLT - PLATELET COUNT 334 10^3/uL (130-450); RED BLOOD COUNT 3.56 10^6/uL (4.20-5.40); RED CELL DISTRIBUTION WIDTH 18.7 % (12.0-15.0); WHITE BLOOD COUNT 7.3 x10^3/uL (4.8-10.8)
[2019-01-27 05:49] LABS: ALBUMIN 2.8 g/dL (3.2-5.5); CALCIUM 8.1 mg/dL (8.5-10.3); CREATININE 0.4 mg/dL (0.4-1.0); PHOSPHORUS 2.7 mg/dL (2.5-4.6)
[2019-01-27 06:40] LABS: PLATELET ESTIMATE, MANUAL NORMAL (130-450,000) (NORMAL); PLATELET MORPHOLOGY NORMAL APPEARANCE (NORMAL)
[2019-01-27] MEDS: methylPREDNISolone SUCCINATE 40 MG/ML VIAL IVP SCH ×2 (06:48→18:26)
[2019-01-27] MEDS: acetaZOLAMIDE 250 MG TABLET PO SCH ×3 (06:49→21:08)
[2019-01-27] MEDS: CEFEPIME 2 GM in SODIUM CHLORIDE 0.9% MINIBAG 100 ML IV SCH ×2 (08:17→18:21)
[2019-01-27] MEDS: IPRATROPIUM/ALBUTEROL 3 ML NEB INH SCH ×4 (08:28→19:09)
[2019-01-27] MEDS: BUDESONIDE 0.5 MG/2 ML NEB INH SCH ×2 (08:28→19:10)
[2019-01-27] MEDS: INSULIN ASPART 300 UNIT/3 ML PEN SUBQ SCH ×4 (08:36→21:08)
[2019-01-27] MEDS: POTASSIUM CHLORIDE 20 MEQ TABLET PO SCH ×2 (09:36→18:28)
[2019-01-27] MEDS: MULTIVITAMIN W/MINERALS TABLET PO SCH (09:36)
[2019-01-27] MEDS: FUROSEMIDE 40 MG TABLET PO SCH (09:38)
[2019-01-27] MEDS: TAMSULOSIN 0.4 MG CAPSULE PO SCH (09:38)
[2019-01-27] MEDS: diltiaZEM CD 120 MG CAPSULE PO SCH (09:39)
[2019-01-27] MEDS: SERTRALINE 50 MG TABLET PO SCH (09:39)
[2019-01-27] MEDS: FAMOTIDINE 20 MG TABLET PO SCH ×2 (09:39→21:09)
[2019-01-27] MEDS: POLYETHYLENE GLYCOL 3350 17 GM PACKET PO SCH (09:42)
[2019-01-27] MEDS: ENOXAPARIN 40 MG/0.4 ML SYRINGE SUBQ SCH (09:49)
[2019-01-27] MEDS: guaiFENesin 600 MG TABLET PO SCH ×2 (09:49→21:08)
[2019-01-27] MEDS: MORPHINE SOL 10 MG/0.5 ML SYRINGE PO SCH ×4 (09:56→21:08)
--- NOTE | 2019-01-27 15:58 | MISCELLANEOUS PROVIDER NOTE ---
Miscellaneous Provider Note - - Note: Subjective: Patient Has improvement to her respiratory status and she feels "better" and still having short 1 word phrases. Patient was again explained on the seriousness of her condition and revisited intubation with possible tracheostomy if he would come to that. Patient went ahead and consented for a central line placement due to poor vascular access. Objective: Vital signs stable currently afebrile, heart rate 70, respiratory rate 13, blood pressure 140/60 currently breathing at 92% on 4 L Oxymizer. General: Patient is alert interacts briefly with pursed lips broken sentences and in moderate respiratory distress at times. Chronically ill-appearing. Obese. HEENT: No buccal lesions. NCAT. Neck: No JVD no bruits no lymphadenopathy no thyromegaly CV/lungs: RRR. No murmurs gallops clicks or rubs. Decreased breath sounds with expiratory rhonchi poor inspiratory and expiratory airway breathing. Increased work of breath with no visible retractions no wheezing no rales. Abdomen: Soft nontender nondistended positive bowel sounds all quads no HSM Extremities and skin: no edema clubbing or cyanosis next Neuro: Cranial nerves II to XII grossly intact. Decreased mentation at times with no hallucinations. No psychomotor retardation. Labs: Reviewed. Blood gases show a pHOf 7.21 PCO2 57 with a PO2 of 91 bicarb with 37 on 5 L Oxymizer and FiO2 of 97 Imaging: Reviewed, Chest x-ray dated 01/26 shows more infiltrate noted in the right lower lobe with right upper lobe nodule still present. Assessment/plan: ABX Reporting Has patient been on IV antibiotics over the past 48 hours?: Yes Sepsis Event Note (H) - Evaluation Current Stage of Sepsis: Ruled out (Lactic acid was 1.9 although patient has identifiable Enterobacter cloaca a species in her sputum presumed HCAP) - Problem List (1) HCAP (healthcare-associated pneumonia) Impression: Patient currently is he is on day #8 of IV cefepime. However patient's IV line to the dorsum of the foot has infiltrated no PICC line service on the weekend will have anesthesia assist with central line placement likely right IJ versus subclavian vein approach with ultrasound guidance. To continue with IV cefepime to cover for Enterobacter cloacae which is a reinfection from last admission. This along with end-stage COPD likely contributing factors of worsening respiratory function with acute on chronic hypoxemic respiratory failure. Would anticipate patient continuing for at least 1 more week of IV antibiotics along with respiratory and pulmonary treatments as delineated for end-stage COPD as well as for acute on chronic hypoxemic hypercapnic respiratory failure. (2) End stage COPD Impression: Patient has improved her respiratory status with improvement of hypoxemia however chest x-ray Lows looks a little worse. Continue with current medical management as well as non-invasive positive pressure ventilation with intermittent BiPAP if tolerates. Serial ABGs have demonstrated persistent hypercapnia, Has now improved With her hypoxemia that has been attributable to mental status decline and hypoxemic encephalopathy. Palliative care service has been in contact with direct power of commercial real estate attorney who is the sister Nancy, Who I met Already along with daughter and son to go over goals of care and anticipatory goals as it relates the trajectory of patient's current medical status. I had explained on the mental status and decline due to hypoxemic e ncephalopathy and they seem to understand this. However, I believe they will discuss further on whether to change CODE STATUS to a limited with no intubation but they will need to talk to patient and come to a consensus about this. We will obtain a chest x-ray today. Consider transferring to a higher level care for possible bronchoscopy and/or having a it security specialist to evaluate for possible intubation and tracheostomy. (3) Acute on chronic respiratory failure with hypoxia and hypercapnia Impression: Patient's chest x-ray shows worsening right lower lobe infiltrate. Continue with current medical management with IV steroids, IV cefepime, duo nebs, trilogy which patient does not tolerate, intermittent BiPAP which patient does not tolerate, currently on 4 L Oxymizer at 98% O2 saturation tolerating well with a FiO2 of approximately 97%, being titrated by RT, incentive spirometry, aggressive pulmonary toileting. (4) IDDM (insulin dependent diabetes mellitus) Impression: Continue to titrate glycemic control with bolus and basal coverage. (5) Anxiety Impression: Continue with Ativan as needed. (6) Encephalopathy acute Impression: Patient Was able to have conversation and remember the year and good orientation mental status with brief periods of lucidity, however her end-stage COPD as well as reinfection with Enterobacter, Still paces her at high risk for intubation and CV complications with neurological impairment. Underlying etiology is hypoxemia. Patient was very dismissive and answered with "yes" and no answers with no discernible understanding of the gravity of her current medical condition which I explained has worsened over the course of several months. (7) Opioid dependence Impression: Patient continues with morphine as scheduled per palliative care service. Qualifiers: Substance use status: uncomplicated Qualified Code(s): F11.20 - Opioid dependence, uncomplicated (8) Palliative care status Impression: Family meeting was done with goals of care readdress. Family will likely discuss patient's total overall care I went over specifically on different types of scenarios that would present with possible intubation tracheostomy and the inevitable of unable to wean off vent. I explained to the direct power of commercial real estate attorney who is a sister that her blood gases have been the worse on this admission and she displays persistent hypoxia despite optimal oxygenation with high flow oxygen without compromising respiratory drive or increasing PCO2 levels. Despite conversation with direct power of commercial real estate attorney the status quo remains that she continues to be full code with all necessary invasive and medical management will continue to be in place despite many unknowns and complications related to her End-stage COPD. As previously stated Patient likely does not understand the gravity of her medical condition with possible personal perception and/or help C issues. During family meeting I again reemphasized patient's prognosis is poor and has worsened over the course of these past several admissions to power of commercial real estate attorney in order to consider for changing CODE STATUS as this would pertain to her mental decline, and prevent for either an unnecessary traumatic code with resuscitative efforts with intubation. (9) Hypertension Impression: Blood pressure seems to be better controlled. Continue with diltiazem to 240 mg p.o. daily. Qualifiers: Hypertension type: essential hypertension Qualified Code(s): I10 - Essential (primary) hypertension
--- NOTE | 2019-01-27 18:12 | ANESTHESIA PROCEDURE NOTE ---
Anesth Central Line Template - Central Line Central Line Preparation: Consent Obtained Central line location: Right IJ Central line type: Triple lumen Central line catheter tip site resides: Superior vena cava (SVC) Central line aftercare: Chlorhexidine disc placed, Secured, Placement confirmed, No pneumothorax, No complications, Pt tolerated well
--- NOTE | 2019-01-27 18:34 | XRAY Report ---
Reason: Central Line Placement Procedure Date: 01/27/2019 Accession Number: [id number] / [id number] Procedure: XR - Chest for Line Placement CPT Code: FULL RESULT: EXAM: CHEST RADIOGRAPHY EXAM DATE: 01/27/2019 05:52 PM. CLINICAL HISTORY: Central Line Placement. COMPARISON: CHEST 1 VIEW 01/26/2019 5:41 PM. TECHNIQUE: 1 view. FINDINGS IMPRESSION: Right internal jugular line projects over the distal superior vena cava. Bibasilar pulmonary opacities and probable small pleural effusions are unchanged. Right upper lung opacity unchanged. No pneumothorax. Normal heart size. RADIA
[2019-01-27] MEDS: MONTELUKAST 10 MG TABLET PO SCH (21:09)
[2019-01-27] MEDS: ATORVASTATIN 10 MG TABLET PO SCH (21:09)
[2019-01-28] MEDS: CEFEPIME 2 GM in SODIUM CHLORIDE 0.9% MINIBAG 100 ML IV SCH ×4 (00:10→23:46)
[2019-01-28] MEDS: SODIUM CHLORIDE FLUSH 0.9% 10 ML SYRINGE IVP SCH ×3 (00:45→16:03)
[2019-01-28] MEDS: MORPHINE SOL 10 MG/0.5 ML SYRINGE PO PRN ×2 (03:36→12:31)
[2019-01-28] MEDS: SODIUM CHLORIDE FLUSH 0.9% 10 ML SYRINGE IVP PRN ×3 (05:21→17:27)
[2019-01-28] MEDS: methylPREDNISolone SUCCINATE 40 MG/ML VIAL IVP SCH ×2 (05:26→17:27)
[2019-01-28] MEDS: acetaZOLAMIDE 250 MG TABLET PO SCH ×3 (05:28→21:01)
[2019-01-28] MEDS: BUDESONIDE 0.5 MG/2 ML NEB INH SCH ×2 (07:14→20:41)
[2019-01-28] MEDS: IPRATROPIUM/ALBUTEROL 3 ML NEB INH SCH ×4 (07:14→20:40)
[2019-01-28 08:03] LABS: MAGNESIUM 2.1 mg/dL (1.7-2.8); PHOSPHORUS 3.2 mg/dL (2.5-4.6)
[2019-01-28 08:12] LABS: ALBUMIN 2.6 g/dL (3.2-5.5); CALCIUM 8.3 mg/dL (8.5-10.3)
[2019-01-28] MEDS: glipiZIDE 5 MG TABLET PO SCH (08:42)
[2019-01-28] MEDS: MULTIVITAMIN W/MINERALS TABLET PO SCH (08:43)
[2019-01-28] MEDS: POTASSIUM CHLORIDE 20 MEQ TABLET PO SCH ×2 (08:43→17:27)
[2019-01-28] MEDS: diltiaZEM CD 120 MG CAPSULE PO SCH (08:52)
[2019-01-28] MEDS: FUROSEMIDE 40 MG TABLET PO SCH (08:53)
[2019-01-28] MEDS: FAMOTIDINE 20 MG TABLET PO SCH ×2 (08:53→21:01)
[2019-01-28] MEDS: POLYETHYLENE GLYCOL 3350 17 GM PACKET PO SCH (08:54)
[2019-01-28] MEDS: ENOXAPARIN 40 MG/0.4 ML SYRINGE SUBQ SCH (08:54)
[2019-01-28] MEDS: TAMSULOSIN 0.4 MG CAPSULE PO SCH (08:54)
[2019-01-28] MEDS: guaiFENesin 600 MG TABLET PO SCH ×2 (08:54→21:00)
[2019-01-28] MEDS: SERTRALINE 50 MG TABLET PO SCH (08:54)
[2019-01-28] MEDS: MORPHINE SOL 10 MG/0.5 ML SYRINGE PO SCH ×4 (08:55→21:01)
[2019-01-28] MEDS: INSULIN ASPART 300 UNIT/3 ML PEN SUBQ SCH ×4 (09:04→21:01)
[2019-01-28] MEDS ORDERED: SODIUM CHLORIDE 0.9% 500 ML IV ONE (09:36)
[2019-01-28] MEDS: MIN OIL/DIMETHICON/COCONUT OIL 92 GM TUBE TOP PRN ×2 (10:45→18:30)
--- NOTE | 2019-01-28 10:58 | MISCELLANEOUS PROVIDER NOTE ---
Miscellaneous Provider Note - - Note: Subjective: Patient Has improvement to her respiratory status and she feels "better" and still having short 1 word phrases. Patient complains of right neck soreness where central line was placed. Denies fevers, chills, chest pain, headaches, maculopapular rashes joint pain or GI/ symptoms. Objective: Vital signs stable currently afebrile, Heart rate of 67 with a blood pressure 141/73, Nontachypneic, 97% O2 saturation on 4 L Oxymizer General: Patient is alert interacts briefly with pursed lips broken sentences and in moderate respiratory distress at times. Chronically ill-appearing. Obese. HEENT: No buccal lesions. NCAT. Neck: Right intrajugular central line placement appears to be clean dry and intact. No JVD no bruits no lymphadenopathy no thyromegaly CV/lungs: RRR. No murmurs gallops clicks or rubs. Decreased breath sounds with expiratory rhonchi poor inspiratory and expiratory airway breathing. No Increased work of breath with no visible retractions no wheezing no rales. Abdomen: Soft nontender nondistended positive bowel sounds all quads no HSM Extremities and skin: Right IJ surrounding skin shows no erythema.no edema clubbing or cyanosis next Neuro: Cranial nerves II to XII grossly intact. Decreased mentation at times w ith no hallucinations. No psychomotor retardation. Labs: Reviewed. Blood gases show a pHOf 7.21 PCO2 57 with a PO2 of 91 bicarb with 37 on 5 L Oxymizer and FiO2 of 97 Imaging: Reviewed, Chest x-ray dated 01/26 shows more infiltrate noted in the right lower lobe with right upper lobe nodule still present. Assessment/plan: ABX Reporting Has patient been on IV antibiotics over the past 48 hours?: Yes Sepsis Event Note (H) - Evaluation Current Stage of Sepsis: Ruled out (Lactic acid was 1.9 although patient has identifiable Enterobacter cloaca a species in her sputum presumed HCAP) - Problem List (1) HCAP (healthcare-associated pneumonia) Impression: Patient currently is he is on day #9 of IV cefepime. Status post central line placement right internal jugular. Post procedural chest x-ray shows no pneumothorax as this would be very detrimental due to her end-stage COPD. To continue with IV cefepime for Enterobacter cloacae which is a reinfection from last admission. This along with end-stage COPD likely contributing factors of worsening respiratory function with acute on chronic hypoxemic respiratory failure. Would anticipate patient continuing for at least for 5 more days of IV antibiotics along with respiratory and pulmonary treatments as delineated for end-stage COPD as well as for acute on chronic hypoxemic hypercapnic respiratory failure. Patient to receive lactobacillus or Florastor to prevent suppression of gut jose. (2) End stage COPD Impression: Patient has improved her respiratory status with improvement of hypoxemia. Serial chest x-ray shows no significant improvement to bibasilar opacities with right upper lobe opacity still present. Continue with current medical management, Improving of ventilation and perfusion with Oxymizer seems to have worked for this patient. Hypoxemic encephalopathy also seems to have improved. At this point patient is not a candidate to be transferred for higher level of care for possible bronchoscopy as patient is currently not in the direction of intubation or tracheostomy. Patient is an ideal candidate for LTAC placement. (3) Acute on chronic respiratory failure with hypoxia and hypercapnia Impression: Patient's chest x-ray shows Persistence of bibasilar pulmonary opacities with no changes and right upper lobe opacity. Continue with current medical management with IV steroids, IV cefepime, duo nebs, trilogy which patient does not tolerate, intermittent BiPAP which patient does not tolerate, currently on 4 L Oxymizer at 98% O2 saturation tolerating well with a FiO2 of approximately 97%, being titrated by RT, incentive spirometry, aggressive pulmonary toileting. (4) History of right upper lobe nodule/mass. Patient has had this in the past and has been followed up as an outpatient. Unclear if this is malignancy. (5) IDDM (insulin dependent diabetes mellitus) Impression: Continue to titrate glycemic control with bolus and basal coverage. (6) Anxiety Impression: Continue with Ativan as needed. (7) Encephalopathy acute Impression: Patient's mental status has been improving in the last 24 hours as a result of switching over to Oxymizer. However her end-stage COPD as well as reinfection with Enterobacter, Still paces her at high risk for intubation and CV complications with neurological impairment. Underlying etiology is hypoxemia. Patient was very dismissive and answered with "yes" and no answers with no discernible understanding of the gravity of her current medical condition which I explained has worsened over the course of several months. (8) Opioid dependence Impression: Patient continues with morphine as scheduled per palliative care service. (9) Palliative care status Impression: Family meeting was done with goals of care readdress. Family will likely discuss patient's total overall care I went over specifically on different types of scenarios that would present with possible intubation tracheostomy and the inevitable of unable to wean off vent. I explained to the direct power of assistant county attorney who is a sister that her blood gases have been the worse on this admission and she displays persistent hypoxia despite optimal oxygenation with high flow oxygen without compromising respiratory drive or increasing PCO2 levels. Despite conversation with direct power of assistant county attorney the status quo remains that she continues to be full code with all necessary invasive and medical management will continue to be in place despite many unknowns and complications related to her End-stage COPD. As previously stated Patient likely does not understand the gravity of her medical condition with possible personal perception and/or help C issues. During family meeting I again reemphasized patient's prognosis is poor and has worsened over the course of these past several admissions to power of assistant county attorney in order to consider for changing CODE STATUS as this would pertain to her mental decline, and prevent for either an unnecessary traumatic code with resuscitative efforts with intubation. (10) Hypertension Impression: Blood pressure seems to be better controlled. Continue with diltiazem to 240 mg p.o. daily. CODE STATUS: Patient remains a full code.
[2019-01-28] MEDS: DICLOFENAC 1% TOP SCH (14:46)
--- NOTE | 2019-01-28 16:33 | Ultrasound Report ---
Reason: Bilateral calf tenderness Procedure Date: 01/28/2019 Accession Number: [id number] / [id number] Procedure: US - Duplex Ext Veins Bilateral CPT Code: FULL RESULT: EXAM: BILATERAL LOWER EXTREMITY VENOUS ULTRASOUND EXAM DATE: 01/28/2019 12:25 PM. CLINICAL HISTORY: Bilateral calf tenderness. COMPARISON: None. TECHNIQUE: Real-time sonographic vascular imaging was performed by the script manager through the lower extremities utilizing both color-flow and Doppler spectral analysis. Multiple labor representative static images were saved for review. FINDINGS: Right: Common Femoral Vein (CFV): Normal. CFV-GSV Junction: Normal. Profunda Femoral Vein (PFV): Normal. Femoral Vein (FV) Prox: Normal. Femoral Vein (FV) Mid: Normal. Femoral Vein (FV) Dist: Normal. Popliteal Vein: Normal. Posterior Tibial Veins: Not well seen. Peroneal Veins: Not well seen. Left: Common Femoral Vein (CFV): Normal. CFV-GSV Junction: Normal. Profunda Femoral Vein (PFV): Normal. Femoral Vein (FV) Prox: Normal. Femoral Vein (FV) Mid: Normal. Femoral Vein (FV) Dist: Normal. Popliteal Vein: Normal. Posterior Tibial Veins: Not seen. Peroneal Veins: Not seen. Other: None. IMPRESSION: 1. Posterior tibial and peroneal veins were not seen. 2. Within the remaining deep veins of the bilateral lower extremities, there is no evidence of occlusive thrombus. RADIA
[2019-01-28] MEDS: ATORVASTATIN 10 MG TABLET PO SCH (21:01)
[2019-01-28] MEDS: MONTELUKAST 10 MG TABLET PO SCH (21:01)
[2019-01-29] MEDS: SODIUM CHLORIDE FLUSH 0.9% 10 ML SYRINGE IVP SCH ×3 (00:22→15:44)
[2019-01-29] MEDS: MORPHINE SOL 10 MG/0.5 ML SYRINGE PO PRN ×2 (02:14→18:42)
[2019-01-29] MEDS: SODIUM CHLORIDE FLUSH 0.9% 10 ML SYRINGE IVP PRN (05:03)
[2019-01-29] MEDS: acetaZOLAMIDE 250 MG TABLET PO SCH ×3 (05:29→21:12)
[2019-01-29 06:01] LABS: ALBUMIN 2.7 g/dL (3.2-5.5); CALCIUM 8.3 mg/dL (8.5-10.3); MAGNESIUM 2.4 mg/dL (1.7-2.8); PHOSPHORUS 3.2 mg/dL (2.5-4.6)
[2019-01-29] MEDS: IPRATROPIUM/ALBUTEROL 3 ML NEB INH SCH ×4 (07:42→18:24)
[2019-01-29] MEDS: BUDESONIDE 0.5 MG/2 ML NEB INH SCH ×2 (07:43→18:24)
[2019-01-29] MEDS: INSULIN ASPART 300 UNIT/3 ML PEN SUBQ SCH ×4 (07:59→21:13)
[2019-01-29] MEDS: CEFEPIME 2 GM in SODIUM CHLORIDE 0.9% MINIBAG 100 ML IV SCH ×3 (07:59→23:44)
[2019-01-29] MEDS: glipiZIDE 5 MG TABLET PO SCH (08:01)
[2019-01-29] MEDS: MULTIVITAMIN W/MINERALS TABLET PO SCH (08:02)
[2019-01-29] MEDS: POTASSIUM CHLORIDE 20 MEQ TABLET PO SCH ×2 (08:04→16:59)
[2019-01-29] MEDS: DOCUSATE SODIUM 250 MG CAPSULE PO SCH (08:44)
[2019-01-29] MEDS: FUROSEMIDE 40 MG TABLET PO SCH (09:02)
[2019-01-29] MEDS: diltiaZEM CD 120 MG CAPSULE PO SCH (09:02)
[2019-01-29] MEDS: POLYETHYLENE GLYCOL 3350 17 GM PACKET PO SCH (09:03)
[2019-01-29] MEDS: MORPHINE SOL 10 MG/0.5 ML SYRINGE PO SCH ×4 (09:04→21:12)
[2019-01-29] MEDS: ENOXAPARIN 40 MG/0.4 ML SYRINGE SUBQ SCH (09:07)
[2019-01-29] MEDS: methylPREDNISolone SUCCINATE 40 MG/ML VIAL IVP SCH (09:07)
[2019-01-29] MEDS: TAMSULOSIN 0.4 MG CAPSULE PO SCH (09:11)
[2019-01-29] MEDS: guaiFENesin 600 MG TABLET PO SCH ×2 (09:11→21:14)
[2019-01-29] MEDS: SERTRALINE 50 MG TABLET PO SCH (09:11)
[2019-01-29] MEDS: FAMOTIDINE 20 MG TABLET PO SCH ×2 (09:11→21:12)
[2019-01-29] MEDS: DICLOFENAC 1% TOP SCH (09:13)
[2019-01-29] MEDS: LORazepam 1 MG TABLET PO PRN (13:07)
--- NOTE | 2019-01-29 13:23 | PROVIDER PROGRESS NOTE ---
Assessment/Plan - Problem List (1) HCAP (healthcare-associated pneumonia) Assessment/Plan: Pt on antibiotics and Mucinex (2) Acute exacerbation of chronic obstructive pulmonary disease (COPD) Assessment/Plan: Pt on nebs, O2, and Solumedrol has decreased from tid to daily during this admission. Her COPD is severe, since she desaturates with moving in bed, and she can no longer get moved to sit in a chair or even dangle sitting at the edge of the bed as she did several admissions ago. (3) Chronic anemia Assessment/Plan: Follow CBC occaisionally (4) Essential (primary) hypertension Assessment/Plan: Pt on Cardizem, Lasix and prn Hydralazine with good control of BP. (5) Hypertension Qualifiers: Hypertension type: essential hypertension Qualified Code(s): I10 - Essential (primary) hypertension (6) IDDM (insulin dependent diabetes mellitus) Assessment/Plan: Pt on carb-controlled diet and fingerstick glu checks with ss Insulin coverage. (7) Weakness generalized Assessment/Plan: She has become extremely deconditioned with multiple hospitalizations over the past half year, in addition to taking Morphine for dyspnea and Benzo's for anxiety. She is now bedbound, not a candidate for PT, therefore I will cancel the PT eval. (8) Anxiety Assessment/Plan: She still gets anxiety and then air hunger, with speaking on the phone or being told she will be turned. The Ativan 1 mg po q6h prn dose caused hypersomnolence. Will decrease to 0.25 mg po q6h prn anxiety. - Current Meds Current Meds: Current Medications Generic Name Dose Route Start Last Admin Trade Name Freq PRN Reason Stop Dose Admin Acetazolamide 250 mg 01/23/19 14:00 01/29/19 05:29 Diamox PO 250 mg TID TERRY Administration Albuterol 2.5 mg 01/19/19 08:22 01/21/19 11:28 INH 2.5 mg RTQ4H PRN Administration Wheezing Albuterol/Ipratropium 3 ml 01/22/19 11:00 01/29/19 11:28 Duoneb INH 3 ml RTQID TERRY Administration Atorvastatin Calcium 20 mg 01/19/19 21:00 01/28/19 21:01 Lipitor PO 20 mg QPM TERRY Administration Budesonide 0.5 mg 01/19/19 19:00 01/29/19 07:43 Pulmicort INH 0.5 mg RTBID TERRY Administration Diltiazem HCl 240 mg 01/26/19 09:00 01/29/19 09:02 Cardizem Cd PO 240 mg DAILY TERRY Administration Docusate Sodium 250 - 500 mg 01/29/19 09:00 01/29/19 08:44 Colace 250mg Capsule PO Not Given DAILY TERRY Enoxaparin Sodium 40 mg 01/19/19 09:00 01/29/19 09:07 Lovenox SUBQ 40 mg DAILY [facility] Administration Famotidine 20 mg 01/19/19 09:00 01/29/19 09:11 Pepcid PO 20 mg BID [facility] Administration Furosemide 40 mg 01/19/19 09:00 01/29/19 09:02 Lasix PO 40 mg DAILY [facility] Administration Glipizide 2.5 mg 01/28/19 07:30 01/29/19 08:01 Glucotrol PO 2.5 mg 0730 [facility] Administration Guaifenesin 600 mg 01/19/19 09:00 01/29/19 09:11 Mucinex PO 600 mg BID [facility] Administration Heparin Sodium (Beef Lung) 30 - 50 unit 01/28/19 01:21 01/29/19 05:03 IVP 50 unit PRN PRN Administration Central Line Protocol (<24 hr) Hydralazine HCl 10 mg 01/23/19 07:19 01/25/19 11:15 Apresoline Inj IVP 10 mg Q4HR PRN Administration SBP>160 of DBP>100 Cefepime HCl 2 gm/ Sodium 100 mls @ 200 mls/hr 01/19/19 16:00 01/29/19 08:44 Chloride IV Infused Q8H [facility] Infusion Insulin Aspart 2 - 10 unit 01/29/19 08:00 01/29/19 11:44 Novolog SUBQ Not Given 0800,1200,1700,2100 [facility] Protocol Lorazepam 0.25 mg 01/29/19 11:03 01/29/19 13:07 Ativan PO 0.25 mg Q6H PRN Administration Anxiety Methylprednisolone 40 mg 01/29/19 09:00 01/29/19 09:07 Solu-Medrol (40mg Vial) IVP 40 mg DAILY [facility] Administration Mineral Oil 1 applic 01/21/19 21:09 01/28/19 18:30 Cavilon TOP 1 applic PRN PRN Administration Skin Care Montelukast Sodium 10 mg 01/19/19 21:00 01/28/19 21:01 Singulair PO 10 mg QPM TERRY Administration Morphine Sulfate 10 mg 01/19/19 08:44 01/29/19 02:14 Roxanol PO 10 mg Q2H PRN Administration Pain/Dyspnea Morphine Sulfate 5 mg 01/23/19 13:00 01/29/19 13:07 Roxanol PO 5 mg QID TERRY Administration Multivitamins/Minerals 1 tab 01/22/19 12:00 01/29/19 08:02 Theragran M PO 1 tab DAILYWM TERRY Administration Patient Own Med ( 1 each 01/28/19 10:00 01/29/19 09:13 Diclofenac Gel 1%) TOP Not Given DAILY TERRY Polyethylene Glycol 17 gm 01/20/19 10:00 01/29/19 09:03 Miralax PO 17 gm DAILY TERRY Administration Potassium Chloride 20 meq 01/23/19 08:00 01/29/19 08:04 K-Dur PO 20 meq BIDWM TERRY Administration Sertraline HCl 50 mg 01/19/19 09:00 01/29/19 09:11 Zoloft PO 50 mg DAILY TERRY Administration Sodium Chloride 10 ml 01/19/19 09:00 01/29/19 09:16 Normal Saline Flush 0.9% IVP 30 ml 0100,0900,1700 TERRY Administration Sodium Chloride 10 ml 01/19/19 08:22 01/29/19 05:03 Normal Saline Flush 0.9% IVP 40 ml PRN PRN Administration NEEDED PER PROVIDER ORDERS Tamsulosin HCl 0.4 mg 01/19/19 09:00 01/29/19 09:11 Flomax PO 0.4 mg DAILY TERRY Administration - Lab Result Fish Bone Diagrams: 01/27/19 05:15 01/29/19 05:00 - Additional Planning My Orders: My Active Orders 01/29/19 11:03 LORazepam [Ativan] 0.25 mg PO Q6H PRN Subjective - Subjective Patient Reports: Resting Comfortably Nursing Reports: Other (Just turning patient in bed to check skin, causes her to desaturate < 90% on oximizer) Objective Vital Signs: Vital Signs - 24 hr 01/28/19 01/28/19 01/28/19 14:54 15:55 15:59 Temperature 36.5 C Heart Rate 78 Heart Rate [ 90 81 Monitoring electrodes] Respiratory 19 15 14 Rate Blood Pressure 125/60 127/50 L [Left Brachial artery] O2 Saturation 94 97 01/28/19 01/28/19 01/28/19 16:33 18:00 18:57 Temperature Heart Rate Heart Rate [ 79 99 105 H Monitoring electrodes] Respiratory 14 17 18 Rate Blood Pressure 127/50 L 139/46 H 156/58 H [Left Brachial artery] O2 Saturation 99 96 95 01/28/19 01/28/19 01/28/19 19:37 20:00 20:40 Temperature 37.0 C Heart Rate 100 Heart Rate [ 107 H 96 Monitoring electrodes] Respiratory 20 19 20 Rate Blood Pressure 156/58 H 145/58 H [Left Brachial artery] O2 Saturation 93 96 01/28/19 01/28/19 01/29/19 22:00 23:56 02:31 Temperature 36.9 C Heart Rate Heart Rate [ 125 H 77 87 Monitoring electrodes] Respiratory 27 H 15 22 Rate Blood Pressure 166/49 H 150/66 H 143/63 H [Left Brachial artery] O2 Saturation 91 L 95 93 01/29/19 01/29/19 01/29/19 04:00 06:00 07:00 Temperature 36.9 C Heart Rate Heart Rate [ 72 69 65 Monitoring electrodes] Respiratory 13 12 15 Rate Blood Pressure 159/62 H 133/52 H [Left Brachial artery] O2 Saturation 96 97 96 01/29/19 01/29/19 01/29/19 07:46 08:00 09:00 Temperature 36.5 C Heart Rate 80 Heart Rate [ 87 103 H Monitoring electrodes] Respiratory 13 19 23 Rate Blood Pressure 143/49 H [Left Brachial artery] O2 Saturation 96 95 01/29/19 01/29/19 01/29/19 10:15 10:36 11:28 Temperature Heart Rate 84 Heart Rate [ 88 78 Monitoring electrodes] Respiratory 20 18 18 Rate Blood Pressure 151/64 H [Left Brachial artery] O2 Saturation 95 97 01/29/19 01/29/19 01/29/19 11:48 12:45 13:00 Temperature 37.1 C Heart Rate Heart Rate [ 81 89 86 Monitoring electrodes] Respiratory 18 22 20 Rate Blood Pressure 149/84 H 142/56 H [Left Brachial artery] O2 Saturation 95 95 96 Oxygen O2 Source [With Activity] Triology unit O2 Source Nasal cannula Oxygen Flow Rate 15 I&O (Last 24 Hrs): Intake and Output Totals x24h 01/27/19 01/28/19 01/29/19 23:59 23:59 23:59 Intake Total 1380 790 Output Total 1050 300 Balance 330 490 General: Alert, Oriented x3 HEENT: Mucous membr. moist/pink, Other (wearing oximnzer nasal cannula) Neck: Other (Obese) Neuro: Alert Cardiovascular: Other (distant heart sunds) Respiratory: Other (Diminished BS) Abdomen: Other (obese withepanus) Extremities: Other (trace edema) - Results Results: Laboratory Results WBC 7.3 x10^3/uL (4.8-10.8) 01/27/19 05:15 RBC 3.56 10^6/uL (4.20-5.40) L 01/27/19 05:15 Hgb 10.2 g/dL (12.0-16.0) L 01/27/19 05:15 Hct 31.6 % (37.0-47.0) L 01/27/19 05:15 MCV 88.7 fL (81.0-99.0) 01/27/19 05:15 MCH 28.8 pg (27.0-31.0) 01/27/19 05:15 MCHC 32.4 g/dL (32.0-36.0) 01/27/19 05:15 RDW 18.7 % (12.0-15.0) H 01/27/19 05:15 Plt Count 334 10^3/uL (130-450) 01/27/19 05:15 MPV 6.6 fL (7.9-10.8) L 01/27/19 05:15 Neut # (Auto) 6.8 10^3/uL (1.5-6.6) H 01/27/19 05:15 Lymph # (Auto) 0.3 10^3/uL (1.5-3.5) L 01/27/19 05:15 [place] # (Auto) 0.1 10^3/uL (0.0-1.0) 01/27/19 05:15 Eos # (Auto) 0.0 10^3/uL (0.0-0.7) 01/27/19 05:15 Baso # (Auto) 0.0 10^3/uL (0.0-0.1) 01/27/19 05:15 Absolute Nucleated RBC 0.01 x10^3/uL 01/27/19 05:15 Nucleated RBC % 0.1 /100WBC 01/27/19 05:15 Manual Slide Review Indicated 01/27/19 05:15 Platelet Estimate NORMAL (130-450,000) (NORMAL) 01/27/19 05:15 Platelet Morphology NORMAL APPEARANCE (NORMAL) 01/27/19 05:15 RBC Morph Micro Appear 2+ HYPOCHROMASIA (NORMAL) 1+ TEARDROP CELLS (NORMAL) 1+ OVALOCYTES (NORMAL) 1+ THIERRY CELLS (NORMAL) 01/27/19 05:15 RBC Morph Micro Appear 2+ HYPOCHROMASIA (NORMAL) 1+ TEARDROP CELLS (NORMAL) 1+ OVALOCYTES (NORMAL) 1+ THIERRY CELLS (NORMAL) 01/27/19 05:15 RBC Morph Micro Appear 2+ HYPOCHROMASIA (NORMAL) 1+ TEARDROP CELLS (NORMAL) 1+ OVALOCYTES (NORMAL) 1+ THIERRY CELLS (NORMAL) 01/27/19 05:15 RBC Morph Micro Appear 2+ HYPOCHROMASIA (NORMAL) 1+ TEARDROP CELLS (NORMAL) 1+ OVALOCYTES (NORMAL) 1+ THIERRY CELLS (NORMAL) 01/27/19 05:15 PT 13.8 secs (9.9-12.6) H 01/19/19 06:30 INR 1.2 (0.8-1.2) 01/19/19 06:30 Bld Gas Analysis Time N 01/26/19 22:20 Sample Site RIGHT RADIAL 01/26/19 22:20 ABG pH 7.42 (7.35-7.45) 01/26/19 22:20 ABG pCO2 57 mmHg (34-45) H 01/26/19 22:20 ABG pO2 91 mmHg (80-100) 01/26/19 22:20 ABG HCO3 37.0 mmol/L (22.0-26.0) H 01/26/19 22:20 ABG Total CO2 39.0 MMOL/L (21.0-29.0) H 01/26/19 22:20 ABG O2 Saturation 97 % (94-98) 01/26/19 22:20 ABG Oximetry Spot Check 96 % 01/23/19 08:29 ABG Base Excess 13.0 mmol/L (-2.0-3.0) H 01/26/19 22:20 Heriberto Test POSITIVE 01/26/19 22:20 Respiration Rate 13 b/min 01/23/19 11:46 O2 Delivery Device OXYMIZER 01/26/19 22:20 O2 Liters/Min 5.00 LPM 01/26/19 22:20 FiO2 97.00 01/26/19 22:20 Tidal Volume 591 mL 01/23/19 11:46 PEEP 5 cmH2O 01/23/19 11:46 Pressure Support Vent 7 cmH2O 01/23/19 11:46 EPAP 5 cmH2O 01/23/19 11:46 IPAP 12 cmH2O 01/23/19 11:46 Sodium 141 mmol/L (135-145) 01/27/19 05:15 Potassium 3.8 mmol/L (3.5-5.0) 01/29/19 05:00 Chloride 100 mmol/L (101-111) L 01/27/19 05:15 Carbon Dioxide 36 mmol/L (21-32) H 01/27/19 05:15 Anion Gap 5.0 (6-13) L 01/27/19 05:15 BUN 24 mg/dL (6-20) H 01/27/19 05:15 Creatinine 0.4 mg/dL (0.4-1.0) 01/27/19 05:15 Estimated GFR (MDRD) 159 (>89) 01/27/19 05:15 Glucose 261 mg/dL (70-100) H 01/27/19 05:15 POC Whole Bld Glucose 83 mg/dL (70 - 100) 01/29/19 11:43 Glycated Hemoglobin 6.2 % (4.6-6.2) 01/19/19 06:30 Estim Average Glucose 131 (70-100) H 01/19/19 06:30 Lactic Acid 1.9 mmol/L (0.5-2.2) 01/19/19 09:30 Calcium 8.3 mg/dL (8.5-10.3) L 01/29/19 05:00 Phosphorus 3.2 mg/dL (2.5-4.6) 01/29/19 05:00 Magnesium 2.4 mg/dL (1.7-2.8) 01/29/19 05:00 Total Bilirubin 1.2 mg/dL (0.2-1.0) H 01/19/19 06:30 AST 17 IU/L (10-42) 01/19/19 06:30 ALT 19 IU/L (10-60) 01/19/19 06:30 Alkaline Phosphatase 65 IU/L (42-121) 01/19/19 06:30 Troponin I < 0.04 ng/mL (<0.49) 01/19/19 06:30 B-Natriuretic Peptide 76 pg/mL (5-100) 01/19/19 06:30 Total Protein 6.4 g/dL (6.7-8.2) L 01/19/19 06:30 Albumin 2.7 g/dL (3.2-5.5) L 01/29/19 05:00 Globulin 3.1 g/dL (2.1-4.2) 01/19/19 06:30 Albumin/Globulin Ratio 1.1 (1.0-2.2) 01/19/19 06:30 Lipase 26 U/L (22-51) 01/19/19 06:30 Urine Color YELLOW 01/19/19 14:30 Urine Clarity CLEAR (CLEAR) 01/19/19 14:30 Urine pH 8.0 PH (5.0-7.5) H 01/19/19 14:30 Ur Specific [place] 1.015 (1.002-1.030) 01/19/19 14:30 Urine Protein TRACE mg/dL (NEGATIVE) 01/19/19 14:30 Urine Glucose (UA) NEGATIVE mg/dL (NEGATIVE) 01/19/19 14:30 Urine Ketones NEGATIVE mg/dL (NEGATIVE) 01/19/19 14:30 Urine Occult Blood NEGATIVE (NEGATIVE) 01/19/19 14:30 Urine Nitrite NEGATIVE (NEGATIVE) 01/19/19 14:30 Urine Bilirubin NEGATIVE (NEGATIVE) 01/19/19 14:30 Urine Urobilinogen 1 (NORMAL) E.U./dL (NORMAL) 01/19/19 14:30 Ur Leukocyte Esterase NEGATIVE (NEGATIVE) 01/19/19 14:30 Ur Microscopic Review NOT INDICATED 01/19/19 14:30 Urine Culture Comments NOT INDICATED 01/19/19 14:30 Nasal Screen MRSA (PCR) NEGATIVE (NEGATIVE) 01/26/19 17:05 Last Dose Date 01/20/19 01/20/19 15:39 Last Dose Time 0501/20/19 15:39 Vancomycin Trough 17.3 ug/mL (10.0-20.0) 01/20/19 15:39 MRSA Surveill Initial NEGATIVE (NEGATIVE) 01/19/19 09:30 Blood Type O POSITIVE 01/21/19 20:15 Blood Type Recheck O POSITIVE 01/21/19 05:52 Antibody Screen NEGATIVE 01/21/19 20:15 - Procedures Procedures: Procedures EXCISION OF ABDOMEN SKIN, EXTERNAL APPROACH (03/27/17) RESECTION OF GALLBLADDER, PERCUTANEOUS ENDOSCOPIC APPROACH (03/27/17) Sepsis Event Note (H) - Evaluation Current Stage of Sepsis: Ruled out (Lactic acid was 1.9 although patient has identifiable Enterobacter cloaca a species in her sputum presumed HCAP)
[2019-01-29] MEDS: MIN OIL/DIMETHICON/COCONUT OIL 92 GM TUBE TOP PRN ×3 (15:23→20:00)
[2019-01-29] MEDS: MONTELUKAST 10 MG TABLET PO SCH (21:12)
[2019-01-29] MEDS: ATORVASTATIN 10 MG TABLET PO SCH (21:12)
[2019-01-29] MEDS: CALCIUM CARBONATE CHEW 500 MG TABLET PO SCH (21:12)
[2019-01-30] MEDS: SODIUM CHLORIDE FLUSH 0.9% 10 ML SYRINGE IVP SCH ×3 (00:21→16:41)
[2019-01-30] MEDS: MORPHINE SOL 10 MG/0.5 ML SYRINGE PO PRN ×2 (03:58→19:35)
[2019-01-30] MEDS: MIN OIL/DIMETHICON/COCONUT OIL 92 GM TUBE TOP PRN (04:14)
[2019-01-30] MEDS: acetaZOLAMIDE 250 MG TABLET PO SCH ×3 (05:26→21:26)
[2019-01-30] MEDS: SODIUM CHLORIDE FLUSH 0.9% 10 ML SYRINGE IVP PRN ×2 (05:27→08:24)
[2019-01-30 05:58] LABS: ALBUMIN 2.8 g/dL (3.2-5.5); CALCIUM 8.6 mg/dL (8.5-10.3); MAGNESIUM 2.2 mg/dL (1.7-2.8); PHOSPHORUS 3.7 mg/dL (2.5-4.6)
[2019-01-30] MEDS: IPRATROPIUM/ALBUTEROL 3 ML NEB INH SCH ×4 (07:42→19:53)
[2019-01-30] MEDS: BUDESONIDE 0.5 MG/2 ML NEB INH SCH ×2 (07:42→19:56)
[2019-01-30] MEDS: POTASSIUM CHLORIDE 20 MEQ TABLET PO SCH ×2 (08:07→17:05)
[2019-01-30] MEDS: ENOXAPARIN 40 MG/0.4 ML SYRINGE SUBQ SCH (08:07)
[2019-01-30] MEDS: TAMSULOSIN 0.4 MG CAPSULE PO SCH (08:08)
[2019-01-30] MEDS: diltiaZEM CD 120 MG CAPSULE PO SCH (08:08)
[2019-01-30] MEDS: guaiFENesin 600 MG TABLET PO SCH ×2 (08:08→21:25)
[2019-01-30] MEDS: MULTIVITAMIN W/MINERALS TABLET PO SCH (08:08)
[2019-01-30] MEDS: DOCUSATE SODIUM 250 MG CAPSULE PO SCH (08:09)
[2019-01-30] MEDS: FUROSEMIDE 40 MG TABLET PO SCH (08:09)
[2019-01-30] MEDS: glipiZIDE 5 MG TABLET PO SCH (08:09)
[2019-01-30] MEDS: CALCIUM CARBONATE CHEW 500 MG TABLET PO SCH ×2 (08:10→21:25)
[2019-01-30] MEDS: SERTRALINE 50 MG TABLET PO SCH (08:11)
[2019-01-30] MEDS: FAMOTIDINE 20 MG TABLET PO SCH ×2 (08:13→21:25)
[2019-01-30] MEDS: MORPHINE SOL 10 MG/0.5 ML SYRINGE PO SCH ×4 (08:16→21:15)
[2019-01-30] MEDS: CEFEPIME 2 GM in SODIUM CHLORIDE 0.9% MINIBAG 100 ML IV SCH ×2 (08:20→16:00)
[2019-01-30] MEDS: INSULIN ASPART 300 UNIT/3 ML PEN SUBQ SCH ×4 (08:22→21:26)
[2019-01-30] MEDS: methylPREDNISolone SUCCINATE 40 MG/ML VIAL IVP SCH (08:24)
[2019-01-30] MEDS: CHOLECALCIFEROL 1,000 UNIT TABLET PO SCH (08:25)
[2019-01-30] MEDS: POLYETHYLENE GLYCOL 3350 17 GM PACKET PO SCH (08:59)
[2019-01-30] MEDS: DICLOFENAC 1% TOP SCH (10:39)
--- NOTE | 2019-01-30 13:55 | PROVIDER PROGRESS NOTE ---
Assessment/Plan - Problem List (1) HCAP (healthcare-associated pneumonia) Assessment/Plan: he has been on empiric antibiotics for 11 days. Will plan a 14 day course (2) Acute exacerbation of chronic obstructive pulmonary disease (COPD) Assessment/Plan: Continue present management w/ iv steroidds, nebs, pulmonary toilte, supplemental oxygen. She would benefit from transfer to a shelter respiratory care facility. Social Work and Domestic Travel Consultant are working on it. (4) Pulmonary HTN Assessment/Plan: She has end stage lung disease and is not a candidate for Revatio (5) Hypertension Qualifiers: Hypertension type: essential hypertension Qualified Code(s): I10 - Essential (primary) hypertension Assessment/Plan: Continue present meds. (6) IDDM (insulin dependent diabetes mellitus) Assessment/Plan: Continue carb controlled diet, fingerstick checks and ss Insulin coverage. (7) Weakness generalized Assessment/Plan: She is now bed-bound due to oxygen desaturations and tachypnea with any movement. Will move to Med Surg status. (8) Anxiety Assessment/Plan: Continue her prn Ativan and scheduled meds. - Current Meds Current Meds: Current Medications Generic Name Dose Route Start Last Admin Trade Name Freq PRN Reason Stop Dose Admin Acetazolamide 250 mg 01/23/19 14:00 01/30/19 05:26 Diamox PO 250 mg TID TERRY Administration Albuterol 2.5 mg 01/19/19 08:22 01/21/19 11:28 INH 2.5 mg RTQ4H PRN Administration Wheezing Albuterol/Ipratropium 3 ml 01/22/19 11:00 01/30/19 11:29 Duoneb INH 3 ml RTQID TERRY Administration Atorvastatin Calcium 20 mg 01/19/19 21:00 01/29/19 21:12 Lipitor PO 20 mg QPM TERRY Administration Budesonide 0.5 mg 01/19/19 19:00 01/30/19 07:42 Pulmicort INH 0.5 mg RTBID TERRY Administration Calcium Carbonate/Glycine 500 mg 01/29/19 21:00 01/30/19 08:10 Tums PO 500 mg BID TERRY Administration Cholecalciferol 2,000 unit 01/30/19 09:00 01/30/19 08:25 Vitamin D3 PO 2,000 unit DAILY TERRY Administration Diltiazem HCl 240 mg 01/26/19 09:00 01/30/19 08:08 Cardizem Cd PO 240 mg DAILY TERRY Administration Docusate Sodium 250 - 500 mg 01/29/19 09:00 01/30/19 08:09 Colace 250mg Capsule PO 250 mg DAILY TERRY Administration Enoxaparin Sodium 40 mg 01/19/19 09:00 01/30/19 08:07 Lovenox SUBQ 40 mg DAILY TERRY Administration Famotidine 20 mg 01/19/19 09:00 01/30/19 08:13 Pepcid PO 20 mg BID TERRY Administration Furosemide 40 mg 01/19/19 09:00 01/30/19 08:09 Lasix PO 40 mg DAILY TERRY Administration Glipizide 2.5 mg 01/28/19 07:30 01/30/19 08:09 Glucotrol PO 2.5 mg 0730 TERRY Administration Guaifenesin 600 mg 01/19/19 09:00 01/30/19 08:08 Mucinex PO 600 mg BID TERRY Administration Heparin Sodium (Beef Lung) 30 - 50 unit 01/28/19 01:21 01/30/19 05:27 IVP 50 unit PRN PRN Administration Central Line Protocol (<24 hr) Hydralazine HCl 10 mg 01/23/19 07:19 01/25/19 11:15 Apresoline Inj IVP 10 mg Q4HR PRN Administration SBP>160 of DBP>100 Cefepime HCl 2 gm/ Sodium 100 mls @ 200 mls/hr 01/19/19 16:00 01/30/19 08:50 Chloride IV Infused Q8H TERRY Infusion Insulin Aspart 2 - 10 unit 01/29/19 08:00 01/30/19 12:10 Novolog SUBQ 6 unit 0800,1200,1700,2100 [facility] Administration Protocol Lorazepam 0.25 mg 01/29/19 11:03 01/29/19 13:07 Ativan PO 0.25 mg Q6H PRN Administration Anxiety Methylprednisolone 40 mg 01/29/19 09:00 01/30/19 08:24 Solu-Medrol (40mg Vial) IVP 40 mg DAILY TERRY Administration Mineral Oil 1 applic 01/21/19 21:09 01/30/19 04:14 Cavilon TOP 1 applic PRN PRN Administration Skin Care Montelukast Sodium 10 mg 01/19/19 21:00 01/29/19 21:12 Singulair PO 10 mg QPM TERRY Administration Morphine Sulfate 10 mg 01/19/19 08:44 01/30/19 03:58 Roxanol PO 10 mg Q2H PRN Administration Pain/Dyspnea Morphine Sulfate 5 mg 01/23/19 13:00 01/30/19 13:07 Roxanol PO 5 mg QID TERRY Administration Multivitamins/Minerals 1 tab 01/22/19 12:00 01/30/19 08:08 Theragran M PO 1 tab DAILYWM TERRY Administration Patient Own Med ( 1 each 01/28/19 10:00 01/30/19 10:39 Diclofenac Gel 1%) TOP Not Given DAILY TERRY Polyethylene Glycol 17 gm 01/20/19 10:00 01/30/19 08:59 Miralax PO Not Given DAILY TERRY Potassium Chloride 20 meq 01/23/19 08:00 01/30/19 08:07 K-Dur PO 20 meq BIDWM TERRY Administration Sertraline HCl 50 mg 01/19/19 09:00 01/30/19 08:11 Zoloft PO 50 mg DAILY TERRY Administration Sodium Chloride 10 ml 01/19/19 09:00 01/30/19 08:58 Normal Saline Flush 0.9% IVP 10 ml 0100,0900,1700 TERRY Administration Sodium Chloride 10 ml 01/19/19 08:22 01/30/19 08:24 Normal Saline Flush 0.9% IVP 10 ml PRN PRN Administration NEEDED PER PROVIDER ORDERS Tamsulosin HCl 0.4 mg 01/19/19 09:00 01/30/19 08:08 Flomax PO 0.4 mg DAILY TERRY Administration - Lab Result Fish Bone Diagrams: 01/27/19 05:15 01/30/19 05:30 - Additional Planning My Orders: My Active Orders 01/29/19 21:00 Calcium Carbonate [Tums] 500 mg PO BID 01/30/19 09:00 Cholecalciferol [Vitamin D3] 2,000 unit PO DAILY 01/31/19 05:00 CBC - COMP BLD CT W/AUTO DIFF [HEME] DAILYLAB CMP [COMPREHENSIVE METABOLIC PANEL] [CHEM] DAILYLAB MG [MAGNESIUM] [CHEM] DAILYLAB PHOSPHORUS [CHEM] DAILYLAB Subjective - Subjective Patient Reports: Feeling Better, No Complaints Nursing Reports: Other (Compliant and is comfortable today) Objective Vital Signs: Vital Signs - 24 hr 01/29/19 01/29/19 01/29/19 14:05 16:53 17:00 Temperature 37.2 C Heart Rate Heart Rate [ 86 91 85 Monitoring electrodes] Respiratory 20 20 18 Rate Blood Pressure 138/46 H 155/57 H [Left Brachial artery] O2 Saturation 95 95 96 01/29/19 01/29/19 01/29/19 18:00 18:26 18:56 Temperature Heart Rate 97 Heart Rate [ 95 99 Monitoring electrodes] Respiratory 18 20 21 Rate Blood Pressure 157/47 H 150/45 H [Left Brachial artery] O2 Saturation 95 93 01/29/19 01/29/19 01/30/19 19:59 22:00 00:00 Temperature 37.0 C 36.8 C Heart Rate Heart Rate [ 109 H 79 85 Monitoring electrodes] Respiratory 22 15 14 Rate Blood Pressure 122/70 120/44 L 132/53 H [Left Brachial artery] O2 Saturation 97 97 01/30/19 01/30/19 01/30/19 04:20 05:00 06:00 Temperature 37.0 C Heart Rate Heart Rate [ 91 72 68 Monitoring electrodes] Respiratory 20 15 11 L Rate Blood Pressure 173/59 H 130/57 L 131/58 H [Left Brachial artery] O2 Saturation 95 95 97 01/30/19 01/30/19 01/30/19 07:42 08:08 10:00 Temperature Heart Rate 79 Heart Rate [ 78 79 Monitoring electrodes] Respiratory 16 15 16 Rate Blood Pressure 142/54 H 148/61 H [Left Brachial artery] O2 Saturation 98 94 01/30/19 01/30/19 11:30 12:00 Temperature 37.0 C Heart Rate 85 Heart Rate [ 92 Monitoring electrodes] Respiratory 21 17 Rate Blood Pressure 154/56 H [Left Brachial artery] O2 Saturation 94 Oxygen O2 Source [With Activity] Triology unit O2 Source Oxymizer Oxygen Flow Rate 15 I&O (Last 24 Hrs): Intake and Output Totals x24h 01/28/19 01/29/19 01/30/19 23:59 23:59 23:59 Intake Total 1380 1130 900 Output Total 1050 850 150 Balance 330 280 750 General: Alert HEENT: Mucous membr. moist/pink, Other (wearing oximizer, getting a neb treat ment right now) Neck: Other (onese) Neuro: Non Focal Cardiovascular: Regular rate, Other (distant heart sounds) Respiratory: Other (poor airmovement, no wheezing) Abdomen: Soft, Other (obese with pannus) Extremities: No edema - Results Results: Laboratory Results WBC 7.3 x10^3/uL (4.8-10.8) 01/27/19 05:15 RBC 3.56 10^6/uL (4.20-5.40) L 01/27/19 05:15 Hgb 10.2 g/dL (12.0-16.0) L 01/27/19 05:15 Hct 31.6 % (37.0-47.0) L 01/27/19 05:15 MCV 88.7 fL (81.0-99.0) 01/27/19 05:15 MCH 28.8 pg (27.0-31.0) 01/27/19 05:15 MCHC 32.4 g/dL (32.0-36.0) 01/27/19 05:15 RDW 18.7 % (12.0-15.0) H 01/27/19 05:15 Plt Count 334 10^3/uL (130-450) 01/27/19 05:15 MPV 6.6 fL (7.9-10.8) L 01/27/19 05:15 Neut # (Auto) 6.8 10^3/uL (1.5-6.6) H 01/27/19 05:15 Lymph # (Auto) 0.3 10^3/uL (1.5-3.5) L 01/27/19 05:15 [place] # (Auto) 0.1 10^3/uL (0.0-1.0) 01/27/19 05:15 Eos # (Auto) 0.0 10^3/uL (0.0-0.7) 01/27/19 05:15 Baso # (Auto) 0.0 10^3/uL (0.0-0.1) 01/27/19 05:15 Absolute Nucleated RBC 0.01 x10^3/uL 01/27/19 05:15 Nucleated RBC % 0.1 /100WBC 01/27/19 05:15 Manual Slide Review Indicated 01/27/19 05:15 Platelet Estimate NORMAL (130-450,000) (NORMAL) 01/27/19 05:15 Platelet Morphology NORMAL APPEARANCE (NORMAL) 01/27/19 05:15 RBC Morph Micro Appear 2+ HYPOCHROMASIA (NORMAL) 1+ TEARDROP CELLS (NORMAL) 1+ OVALOCYTES (NORMAL) 1+ THIERRY CELLS (NORMAL) 01/27/19 05:15 RBC Morph Micro Appear 2+ HYPOCHROMASIA (NORMAL) 1+ TEARDROP CELLS (NORMAL) 1+ OVALOCYTES (NORMAL) 1+ THIERRY CELLS (NORMAL) 01/27/19 05:15 RBC Morph Micro Appear 2+ HYPOCHROMASIA (NORMAL) 1+ TEARDROP CELLS (NORMAL) 1+ OVALOCYTES (NORMAL) 1+ THIERRY CELLS (NORMAL) 01/27/19 05:15 RBC Morph Micro Appear 2+ HYPOCHROMASIA (NORMAL) 1+ TEARDROP CELLS (NORMAL) 1+ OVALOCYTES (NORMAL) 1+ THIERRY CELLS (NORMAL) 01/27/19 05:15 PT 13.8 secs (9.9-12.6) H 01/19/19 06:30 INR 1.2 (0.8-1.2) 01/19/19 06:30 Bld Gas Analysis Time N 01/26/19 22:20 Sample Site RIGHT RADIAL 01/26/19 22:20 ABG pH 7.42 (7.35-7.45) 01/26/19 22:20 ABG pCO2 57 mmHg (34-45) H 01/26/19 22:20 ABG pO2 91 mmHg (80-100) 01/26/19 22:20 ABG HCO3 37.0 mmol/L (22.0-26.0) H 01/26/19 22:20 ABG Total CO2 39.0 MMOL/L (21.0-29.0) H 01/26/19 22:20 ABG O2 Saturation 97 % (94-98) 01/26/19 22:20 ABG Oximetry Spot Check 96 % 01/23/19 08:29 ABG Base Excess 13.0 mmol/L (-2.0-3.0) H 01/26/19 22:20 Heriberto Test POSITIVE 01/26/19 22:20 Respiration Rate 13 b/min 01/23/19 11:46 O2 Delivery Device OXYMIZER 01/26/19 22:20 O2 Liters/Min 5.00 LPM 01/26/19 22:20 FiO2 97.00 01/26/19 22:20 Tidal Volume 591 mL 01/23/19 11:46 PEEP 5 cmH2O 01/23/19 11:46 Pressure Support Vent 7 cmH2O 01/23/19 11:46 EPAP 5 cmH2O 01/23/19 11:46 IPAP 12 cmH2O 01/23/19 11:46 Sodium 141 mmol/L (135-145) 01/27/19 05:15 Potassium 3.8 mmol/L (3.5-5.0) 01/30/19 05:30 Chloride 100 mmol/L (101-111) L 01/27/19 05:15 Carbon Dioxide 36 mmol/L (21-32) H 01/27/19 05:15 Anion Gap 5.0 (6-13) L 01/27/19 05:15 BUN 24 mg/dL (6-20) H 01/27/19 05:15 Creatinine 0.4 mg/dL (0.4-1.0) 01/27/19 05:15 Estimated GFR (MDRD) 159 (>89) 01/27/19 05:15 Glucose 261 mg/dL (70-100) H 01/27/19 05:15 POC Whole Bld Glucose 239 mg/dL (70 - 100) H 01/30/19 12:08 Glycated Hemoglobin 6.2 % (4.6-6.2) 01/19/19 06:30 Estim Average Glucose 131 (70-100) H 01/19/19 06:30 Lactic Acid 1.9 mmol/L (0.5-2.2) 01/19/19 09:30 Calcium 8.6 mg/dL (8.5-10.3) 01/30/19 05:30 Phosphorus 3.7 mg/dL (2.5-4.6) 01/30/19 05:30 Magnesium 2.2 mg/dL (1.7-2.8) 01/30/19 05:30 Total Bilirubin 1.2 mg/dL (0.2-1.0) H 01/19/19 06:30 AST 17 IU/L (10-42) 01/19/19 06:30 ALT 19 IU/L (10-60) 01/19/19 06:30 Alkaline Phosphatase 65 IU/L (42-121) 01/19/19 06:30 Troponin I < 0.04 ng/mL (<0.49) 01/19/19 06:30 B-Natriuretic Peptide 76 pg/mL (5-100) 01/19/19 06:30 Total Protein 6.4 g/dL (6.7-8.2) L 01/19/19 06:30 Albumin 2.8 g/dL (3.2-5.5) L 01/30/19 05:30 Globulin 3.1 g/dL (2.1-4.2) 01/19/19 06:30 Albumin/Globulin Ratio 1.1 (1.0-2.2) 01/19/19 06:30 Lipase 26 U/L (22-51) 01/19/19 06:30 Urine Color YELLOW 01/19/19 14:30 Urine Clarity CLEAR (CLEAR) 01/19/19 14:30 Urine pH 8.0 PH (5.0-7.5) H 01/19/19 14:30 Ur Specific [place] 1.015 (1.002-1.030) 01/19/19 14:30 Urine Protein TRACE mg/dL (NEGATIVE) 01/19/19 14:30 Urine Glucose (UA) NEGATIVE mg/dL (NEGATIVE) 01/19/19 14:30 Urine Ketones NEGATIVE mg/dL (NEGATIVE) 01/19/19 14:30 Urine Occult Blood NEGATIVE (NEGATIVE) 01/19/19 14:30 Urine Nitrite NEGATIVE (NEGATIVE) 01/19/19 14:30 Urine Bilirubin NEGATIVE (NEGATIVE) 01/19/19 14:30 Urine Urobilinogen 1 (NORMAL) E.U./dL (NORMAL) 01/19/19 14:30 Ur Leukocyte Esterase NEGATIVE (NEGATIVE) 01/19/19 14:30 Ur Microscopic Review NOT INDICATED 01/19/19 14:30 Urine Culture Comments NOT INDICATED 01/19/19 14:30 Nasal Screen MRSA (PCR) NEGATIVE (NEGATIVE) 01/26/19 17:05 Last Dose Date 01/20/19 01/20/19 15:39 Last Dose Time 0510 01/20/19 15:39 Vancomycin Trough 17.3 ug/mL (10.0-20.0) 01/20/19 15:39 MRSA Surveill Initial NEGATIVE (NEGATIVE) 01/19/19 09:30 Blood Type O POSITIVE 01/21/19 20:15 Blood Type Recheck O POSITIVE 01/21/19 05:52 Antibody Screen NEGATIVE 01/21/19 20:15 - Procedures Procedures: Procedures EXCISION OF ABDOMEN SKIN, EXTERNAL APPROACH (03/27/17) RESECTION OF GALLBLADDER, PERCUTANEOUS ENDOSCOPIC APPROACH (03/27/17) Sepsis Event Note (H) - Evaluation Current Stage of Sepsis: Ruled out (Lactic acid was 1.9 although patient has identifiable Enterobacter cloaca a species in her sputum presumed HCAP)
--- NOTE | 2019-01-30 17:39 | Discharge Plan ---
"Discharge Plan for SNF / [facility]A - Discharge Plan And Transition Orders Disposition: [facility] DC/Xfer Condition: Poor Allergies and Adverse Reactions: Allergies Allergy/AdvReac Type Severity Reaction Status Date / Time No Known Drug Allergies Allergy Verified 01/19/19 06:03 - SNF / CUSTODIAL Transition Orders Admit to (Facility): [facility] Under the care of (Name): Dr Cliff Stone Discharge Diagnosis: 1) Severe sepsis 2) Acute respiratory failure with hypoxia 3) Health-care acquired pneumonia (sputum grew Enterobacter cloacea)) 4) COPD exacerbation 5) Pulmonary fibrosis 6) End stage COPD, oxygen dependant 7) Pulmonary HTN 8) HTN 9) IDDM 10) Anxiety and Depression 11) Generalized weakness/ severe deconditioning 12) GERD 13) Osteoarthritis 14) Lung mass, possible malignancy 15) Obesity 16) Anemia of chronic disease 17) Palliative Care following 18) Code Status: Full Code Medicare Certification Statement: I certify that Post Hospital intermediate care is medically necessary on a continuing basis for any of the conditions for which she/he is receiving care during hospitalization. Notify PCP of admission and forward orders to primary provider for signature. Weight on admission and: Weekly Call PCP immediately if weight increases by: 5 kg Other Notification Orders: Call PCP immediately if patient develops dyspnea, chest pain/tightness or edema. House Bowel Program: Yes Additional Bowel Program Orders: If no BM after 2 days, nurse may give M.O.M. 30ml PO PRN and/or ducolax Supp 1 [place] and/or PACHECO 250mg P.O., and/or senna 1-2 tabs PO. On day 3 nurse may give repeat above order until residents constipation is resolved. Annual Influenza Vaccine (between Jul 21 and February 17): Yes Two-step PPD per [facility] [phone] or approved exception documents: Yes Treatments & Other Orders: Nebulizer treatment (by RT) qid and prn Oxygen Orders: 4L per Oximizer continuously Orthopedic Orders: None Medication Orders: PLEASE REFER TO THE DISCHARGE MEDICATION LIST. Insulin Orders?: Yes - Medications New Prescriptions: Albuterol 2.5 mg INH RTQ4H PRN #28 neb PRN Reason: Wheezing Atorvastatin Calcium 20 mg PO QPM #30 tablet Budesonide [Pulmicort] 0.5 mg INH RTBID #60 neb Calcium Carbonate [Tums (Calcium Carbonate 500mg)] 500 mg PO BID #60 tablet Cholecalciferol (Vitamin D3) [Vitamin D] 2,000 unit PO DAILY #30 capsule dilTIAZem HCl [Diltiazem 24Hr ER] 120 mg PO DAILY #30 cap.er.24h Docusate Sodium 250Mg Capsule [Colace 250Mg Capsule] 250 mg PO DAILY #30 capsule Furosemide [Lasix] 40 mg PO DAILY #30 tablet guaiFENesin [Mucinex] 600 mg PO BID #60 tablet Insulin Aspart [NovoLOG] 2 - 10 unit SUBQ 0800,1200,1700,2100 #2 pen Ipratropium/Albuterol [Duoneb] 3 ml INH RTQID #120 neb LORazepam [Ativan] 0.25 mg PO Q6H PRN #15 tablet PRN Reason: Anxiety Montelukast [Singulair] 10 mg PO QPM #30 tablet Morphine Sulfate [Morphine Sulf Oral (Roxanol)] 10 mg PO Q2H PRN #30 ml PRN Reason: Pain/Dyspnea Morphine Sulfate [Morphine Sulf Oral (Roxanol)] 5 mg PO TID #10 bottle Multivitamin W/Minerals [Theragran M] 1 tab PO DAILYWM #30 tablet Polyethylene Glycol 3350 [Miralax] 17 gm PO DAILY #30 packet predniSONE [Deltasone] 40 mg PO DAILY #60 tablet MDD Start date 01/16/19 Sulfamethox/Trimeth 800/160 [Bactrim Ds 800/160] 2 each PO BID #8 tablet - Diet Type: No added salt Texture: Puree Liquids: [place] thick Supplements: Ensure 4 oz tid with meals May have monthly special meal: Yes - Therapies | Activity Therapy: Evaluation | Treat if indicated: PT, Swallowing / ST Rehabilitation Potential: Maximize functional status Activity: Activity as Tolerated Weight Bearing: No Weight Assistance Devices: Wheelchair Insulin Orders - SNF Basal | Correction | Custom Orders: Diagnosis: Diabetes Initiate hypo and hyperglycemia protocols for BG <70 and BG >375. May check BG PRN for signs/symptoms of dysglycemia. Frequency of BG checks: [AC/HS] Basal Insulin: None Correction Insulin: - Select the type of insulin below [Choose: Humalog 100 units /ml insulin inject subq per orders indicate below [] LOW DOSE [] MODERATE DOSE [X] MODERATE/HIGH DOSE [] HIGH DOSE GB UNITS GB UNITS GB UNITS GB UNITS 61-140 0 UNITS 61-140 0 UNITS 61-140 0 UNITS 61-140 0 UNITS 141-175 1 UNITS 141-175 1 UNITS 141-175 2 UNITS 141-175 3 UNITS 176-225 2 UNITS 176-225 3 UNITS 176-225 4 UNITS 176-225 5 UNITS 226-275 3 UNITS 226-275 5 UNITS 226-275 6 UNITS 226-275 7 UNITS 276-325 4 UNITS 276-325 7 UNITS 276-325 8 UNITS 276-325 9 UNITS 326-375 5 UNITS 326-375 9 UNITS 326-375 10 UNITS 326-375 11 UNITS >375 CONTACT MD >375 CONTACT MD >375 CONTACT MD >375 CONTACT MD"
[2019-01-30] MEDS: LORazepam 1 MG TABLET PO PRN (21:16)
[2019-01-30] MEDS: ATORVASTATIN 10 MG TABLET PO SCH (21:17)
[2019-01-30] MEDS: MONTELUKAST 10 MG TABLET PO SCH (21:26)
[2019-01-31] MEDS: acetaZOLAMIDE 250 MG TABLET PO SCH ×2 (06:12→16:01)
[2019-01-31 07:18] LABS: ALBUMIN 2.7 g/dL (3.2-5.5); ALBUMIN/GLOBULIN RATIO 1.1 (1.0-2.2); BILIRUBIN,TOTAL 0.6 mg/dL (0.2-1.0); CALCIUM 8.1 mg/dL (8.5-10.3); CREATININE 0.4 mg/dL (0.4-1.0); MAGNESIUM 2.1 mg/dL (1.7-2.8); PHOSPHORUS 3.6 mg/dL (2.5-4.6); TOTAL PROTEIN 5.2 g/dL (6.7-8.2)
[2019-01-31] MEDS: BUDESONIDE 0.5 MG/2 ML NEB INH SCH (07:49)
[2019-01-31] MEDS: IPRATROPIUM/ALBUTEROL 3 ML NEB INH SCH ×3 (07:49→16:03)
[2019-01-31 07:50] LABS: BASOPHILS % (AUTO) 0.1 %; HGB - HEMOGLOBIN 9.4 g/dL (12.0-16.0); LYMPHOCYTES % (AUTO) 7.9 %; MEAN CORPUSCULAR HEMOGLOBIN 28.7 pg (27.0-31.0); MEAN CORPUSCULAR HGB CONC 31.9 g/dL (32.0-36.0); MEAN CORPUSCULAR VOLUME 90.1 fL (81.0-99.0); MEAN PLATELET VOLUME 6.8 fL (7.9-10.8); MONOCYTES % (AUTO) 8.6 %; NEUTROPHILS % (AUTO) 83.4 %; PLT - PLATELET COUNT 267 10^3/uL (130-450); RED BLOOD COUNT 3.27 10^6/uL (4.20-5.40); RED CELL DISTRIBUTION WIDTH 19.4 % (12.0-15.0); WHITE BLOOD COUNT 11.2 x10^3/uL (4.8-10.8)
[2019-01-31] MEDS: CEFEPIME 2 GM in SODIUM CHLORIDE 0.9% MINIBAG 100 ML IV SCH ×3 (08:00)
[2019-01-31] MEDS: ENOXAPARIN 40 MG/0.4 ML SYRINGE SUBQ SCH (08:01)
[2019-01-31] MEDS: methylPREDNISolone SUCCINATE 40 MG/ML VIAL IVP SCH (08:03)
[2019-01-31] MEDS: SODIUM CHLORIDE FLUSH 0.9% 10 ML SYRINGE IVP PRN (08:04)
[2019-01-31] MEDS: glipiZIDE 5 MG TABLET PO SCH (08:08)
[2019-01-31] MEDS: MULTIVITAMIN W/MINERALS TABLET PO SCH (08:09)
[2019-01-31] MEDS: INSULIN ASPART 300 UNIT/3 ML PEN SUBQ SCH ×2 (08:09→11:52)
[2019-01-31] MEDS: CHOLECALCIFEROL 1,000 UNIT TABLET PO SCH (08:10)
[2019-01-31] MEDS: POTASSIUM CHLORIDE 20 MEQ TABLET PO SCH (08:10)
[2019-01-31] MEDS: CALCIUM CARBONATE CHEW 500 MG TABLET PO SCH (08:10)
[2019-01-31] MEDS: DOCUSATE SODIUM 250 MG CAPSULE PO SCH (08:11)
[2019-01-31] MEDS: FAMOTIDINE 20 MG TABLET PO SCH (08:11)
[2019-01-31] MEDS: diltiaZEM CD 120 MG CAPSULE PO SCH (08:11)
[2019-01-31] MEDS: FUROSEMIDE 40 MG TABLET PO SCH (08:12)
[2019-01-31] MEDS: guaiFENesin 600 MG TABLET PO SCH (08:12)
[2019-01-31] MEDS: TAMSULOSIN 0.4 MG CAPSULE PO SCH (08:13)
[2019-01-31] MEDS: SERTRALINE 50 MG TABLET PO SCH (08:13)
[2019-01-31] MEDS: SODIUM CHLORIDE FLUSH 0.9% 10 ML SYRINGE IVP SCH ×2 (08:14)
[2019-01-31] MEDS: MORPHINE SOL 10 MG/0.5 ML SYRINGE PO SCH ×2 (08:18→12:56)
[2019-01-31 08:35] LABS: ABNORMAL LYMPHS % (MANUAL) 0 %; BAND NEUTROPHILS % (MANUAL) 3 %; LYMPHOCYTES # (MANUAL) 0.4 10^3/uL (1.5-3.5); LYMPHOCYTES % (MANUAL) 4 %; MONOCYTES # (MANUAL) 1.1 10^3/uL (0.0-1.0); MYELOCYTES % (MANUAL) 3 %; NEUTROPHILS # (MANUAL) 9.3 10^3/uL (1.5-6.6); NEUTROPHILS % (MANUAL) 80 %
[2019-01-31 08:37] LABS: DIFFERENTIAL COMMENT MANUAL DIFFERENTIAL; PLATELET ESTIMATE, MANUAL NORMAL (130-450,000) (NORMAL); PLATELET MORPHOLOGY NORMAL APPEARANCE (NORMAL)
[2019-01-31] MEDS: DICLOFENAC 1% TOP SCH (09:51)
[2019-01-31] MEDS: POLYETHYLENE GLYCOL 3350 17 GM PACKET PO SCH (09:52)
[2019-01-31] MEDS: MORPHINE SOL 10 MG/0.5 ML SYRINGE PO PRN ×3 (10:12→15:32)
[2019-01-31 11:50] VITALS: BP 130/53
[2019-01-31] MEDS: LORazepam 1 MG TABLET PO PRN (13:48)
--- NOTE | 2019-02-01 02:32 | DISCHARGE SUMMARY ---
Physician: Shannan Carolina MD DATE OF ADMISSION: 01/19/2019 DATE OF DISCHARGE: 01/31/2019 HISTORY OF PRESENT ILLNESS: This is a 68-year-old female of descent who has a history of severe COPD on oxygen and steroid dependent, bedridden because of her obesity and severe dyspnea even at rest. She has had 7 admissions here in the past 4 months for COPD exacerbation, several with with pneumonia. She has finally agreed to have Palliative Care help her. DNR status has been discussed with her multiple times and she declines this. She has been on BiPAP previously and she has not needed ventilator support. There had been attempts at placing her in rehab that she was resistant to; however, over the past one month, she was transferred to [facility] to attempt PT rehab. She presented this time with worsening shortness of breath, a cough, air hunger and anxiety as well as tachycardia and tachypnea. She was given morphine, which did not help, and an ambulance brought her fro [facility] to our emergency room. She was having pursed lip breathing, could only speak in one- word sentences and was admitted to the ICU for aggressive pulmonary management. HOSPITAL COURSE AND DISCHARGE DIAGNOSES 1. Severe sepsis. Patient was tachycardic at rates of 110, tachypneic with rates in the 30s, and desaturating. The source of the sepsis appeared to be another pneumonia. She remained in the ICU during her entire stay. Treating her underlying pneumonia improved her sepsis. Her admission lactic acid level was 3.4, which decreased to 1.9 by the next day. 2. Acute respiratory failure with hypoxia. Patient's admitting oxygen saturation was 44-88% and she required high-flow oxygen settings. She had an extremely slow course of improvement since her baseline respiratory status is so poor. Two months ago, she could get out of bed, pivot and sit in a wheelchair to be wheeled to a meal. One month ago, she was able to dangle her feet and sit up comfortably without desaturating, but could no longer ambulate. On this admission, even turning her in bed created oxygen desaturation and this caused anxiety and air hunger. It was felt that she was a candidate for LTAC pulmonary management and she was approved to be transferred. I spoke to Dr. Cliff Stone, [facility] at [facility], who kindly accepted her, and she was transferred by ambulance on 01/31/2019. 4. Healthcare-acquired pneumonia. Patient's sputum culture grew Enterobacter cloacae. She was put on high doses of iv Cefepime, which the bacteria was sensitive to. She had improvement in her cough and sputum production using Mucinex and she was on other management for her chronic obstructive pulmonary disease. 5. Chronic obstructive pulmonary disease exacerbation. The patient required q.i.d. scheduled nebulizers, every 4 hours p.r.n. nebulizers, high doses of IV steroids, which were slowly decreased over the 12 days, down to 40 mg of iv Solu-Medrol daily. On the day of discharge, she was transitioned to Prednisone 40 mg p.o. daily. Finally, her oxygen settings were on an Oxymizer at 4 liters of supplemental oxygen. She was kept on nebulizers throughout her entire course, occasionally Xopenex because of the tachycardia. 6. Pulmonary fibrosis. She carries this diagnosis from previous admissions. 7. End-stage chronic obstructive pulmonary disease, oxygen dependent. Patient has never been able to have outpatient pulmonary evaluation because of her homebound status and now bedbound status. 8. Pulmonary hypertension. An Echo done in April 2018 showed a PA pressure 44 mmHg. An Echo in Aug 2018 could not measure her PA pressure. No Echo was done here after that. 9. Hypertension. Patient was maintained on her home medications with adequate blood pressure control. 10. Insulin-dependent diabetes mellitus. Patient was normally on an oral agent. With each admission here, she was on a carb-controlled diet and sliding scale insulin coverage. She had been seen by dietitians who noted that she had actually very poor calorie-protein intake despite her baseline morbid obesity. She was kept on the sliding scale insulin, but her diet was liberalized because of her minimal p.o. intake, as per guidance of the dietitian. 11. Anxiety and depression. This is one of the patient's major symptoms since she has claustrophobia, cannot tolerate a Ventimask, and only intermittently can tolerate BiPAP management. She has a home Trilogy mask, which she only uses as a fan which she holds in front of her mouth, but never has used it properly. Patient has good results when she gets scheduled morphine and p.r.n. liquid morphine for times of "air hunger" and obvious anxiety. She was also kept on her antidepressant. 12. Generalized weakness. As described above, she has had worsening truncal weakness with each admission. 13. Severe muscle deconditioning. As described above, she is no longer a candidate for physical therapy. Even passive range of motion causes her to desaturate when she is in bed. 14. Gastroesophageal reflux disease. Patient was kept on her antacids while here. 15. Osteoarthritis. Patient does describe back pain. This has mostly been under control with use of the above morphine. 16. Lung mass. There is a known lung mass for many months. She was felt to be excessively high risk by Anesthesia to undergo any sedation for bronchoscopy or biopsies. 17. Obesity. Patient now has a BMI of 30. She has had a slow weight loss because of her poor calorie-protein intake secondary to her dyspnea. 18. Anemia of chronic disease. 19. Palliative care is following along. 20. Code status: FULL CODE. Patient has had multiple providers discuss with her the meaning of CPR, ET intubation and mechanical ventilation. Patient has never wanted to be a DNR or DNI and remains a FULL CODE. LABORATORY AND IMAGING: Her admission chest x-ray this time showed: calcific aortic atherosclerosis, normal heart size, right lung base infiltrate, streaky left lung opacity, left lung density, chronic right apical pleural and parenchymal abnormality. All other labs and imaging are summarized above. CONDITION AT DISCHARGE: Poor. PHYSICAL EXAMINATION VITAL SIGNS: Blood pressure 130/53, heart rate 87 in sinus rhythm, afebrile, saturation 87-90% on 4 and 5 liters of oxygen by Oxymizer. HEENT: Reveals cyanotic lips. Pursed lip breathing. Speaking in one-word sentences. Her oral mucosa is moist. NECK: Obese. I cannot rule out JVD. CHEST: Diffusely poor air movement, but no wheezes or rales. Increased AP diameter. BREASTS: Large and pendulous. HEART: Heart sounds are distant. No murmurs heard. ABDOMEN: Obese. I cannot rule out ascites or organomegaly. EXTREMITIES: No clubbing, cyanosis, or edema. NEUROLOGIC: Grossly intact. CODE STATUS: FULL CODE. FOLLOWUP: This will be determined after a stay at [facility]. Time required to complete this entire discharge, chart review, discussion with patient, discussion with social workers, discussion with accepting MD, transfer and prescription orders, dictation: 90 minutes. cc: DOMINGO Reyes TD: 01/31/2019 18:19 MTDD
== END 2019-01-31 15:45 | DRG 871 ==
LOC: EDUNIT# → ED 05:53 → ICU 08:22
PROVIDERS: ADMIT Internal Medicine; ATTEND Internal Medicine
PROC: 02HV33Z Insertion of Infusion Device into Superior Vena Cava, Percutaneous Approach (ICD-10-PCS; principal; 2019-01-27)
DX: J44.9 Chronic obstructive pulmonary disease, unspecified (principal); A41.89 Other specified sepsis; J18.1 Lobar pneumonia, unspecified organism; J96.00 Acute respiratory failure, unspecified whether with hypoxia or hypercapnia; R00.0 Tachycardia, unspecified; E86.0 Dehydration; J15.6 Pneumonia due to other Gram-negative bacteria; J96.22 Acute and chronic respiratory failure with hypercapnia; J96.21 Acute and chronic respiratory failure with hypoxia; J44.0 Chronic obstructive pulmonary disease with (acute) lower respiratory infection; J44.1 Chronic obstructive pulmonary disease with (acute) exacerbation; E87.2 Acidosis; F11.20 Opioid dependence, uncomplicated; R53.83 Other fatigue; G93.1 Anoxic brain damage, not elsewhere classified; J84.10 Pulmonary fibrosis, unspecified; I27.20 Pulmonary hypertension, unspecified; I10 Essential (primary) hypertension; E11.9 Type 2 diabetes mellitus without complications; F32.9 Major depressive disorder, single episode, unspecified; F41.9 Anxiety disorder, unspecified; M62.81 Muscle weakness (generalized); K21.9 Gastro-esophageal reflux disease without esophagitis; M19.90 Unspecified osteoarthritis, unspecified site; R91.8 Other nonspecific abnormal finding of lung field; E66.9 Obesity, unspecified; Z68.30 Body mass index [BMI] 30.0-30.9, adult; Z51.5 Encounter for palliative care; D50.9 Iron deficiency anemia, unspecified; E87.6 Hypokalemia; R35.0 Frequency of micturition; J32.9 Chronic sinusitis, unspecified; Y95 Nosocomial condition; Z99.81 Dependence on supplemental oxygen; Z79.51 Long term (current) use of inhaled steroids; Z79.4 Long term (current) use of insulin; Z79.52 Long term (current) use of systemic steroids; Z87.891 Personal history of nicotine dependence; Z87.01 Personal history of pneumonia (recurrent); Z74.01 Bed confinement status
CPT/HCPCS: 36415; 36600; 71045; 80048; 80053; 80069; 80202; 81003; 82040; 82310; 82803; 83036; 83605; 83690; 83735; 83880; 84100; 84132; 84484; 85025; 85610; 86850; 86900; 86901; 87040; 87070; 87077; 87150; 87181; 87205; 93005; 93970; 94640; 94660; 96365; 96367; 96375; 99284; A6250; A9270; J1650; J2060; J3370; J7626; J8499; 81001; 87086; 99285